=== PATIENT | female | born 1945 | race Two or more races ===

== ENCOUNTER 2024-02-27 07:18 | Emergency (ER) | payer MEDICARE, SELFPAY ==
--- NOTE | ~2024-02-27 | CT_ITS ---
EXAMINATION: CT ABDOMEN AND PELVIS WITHOUT CONTRAST CLINICAL INFORMATION: Urinary hesitancy. Question stone. COMPARISON: None available. TECHNIQUE: Multidetector volumetric imaging was performed from the superior aspect of the liver through the pubic symphysis. Sagittal and coronal reformatted images were obtained on the technologist's workstation. This CT examination was performed using dose optimization techniques as appropriate, variously including the following: *Automated exposure control *Adjustment of mA and/or kV according to patient size (this includes techniques or standardized protocols for targeted exams where dose is matched to indication/reason for exam; i.e. extremities or head) *Use of iterative reconstruction technique DLP: 579 mGy-cm FINDINGS: LUNG BASES: The lung bases appear clear, with no evidence of inflammation or nodules. Mild cardiomegaly. Suspect decreased blood pool density, raising suspicion for anemia. Status post aortic valve replacement. No pericardial effusion. LIVER, GALLBLADDER, AND BILIARY TREE: The liver appears unremarkable in size, shape, and attenuation. No focal hepatic lesion or biliary ductal dilatation is appreciated. Mildly distended gallbladder measuring 4.9 cm in diameter. Less than 5 mm gallstones. No evidence of gallbladder wall thickening or pericholecystic inflammatory change. PANCREAS: Unremarkable SPLEEN: Unremarkable ADRENAL GLANDS: Unremarkable KIDNEYS AND URETERS: 4.2 cm benign right upper pole simple renal cysts for which no further dedicated follow-up imaging as indicated. The kidneys otherwise appear unremarkable in size, shape, and attenuation. No hydronephrosis, hydroureter, or calculi seen. BLADDER: Distended. Otherwise unremarkable. GASTROINTESTINAL TRACT: The small and large bowel appear unremarkable. No diverticulosis. Normal-appearing distal ileum. No evidence of appendicitis. ABDOMINAL WALL: No significant hernia is appreciated. LYMPH NODES: No evidence of adenopathy by size criteria. VASCULAR: Unremarkable PELVIC VISCERA: Status post hysterectomy. OSSEOUS STRUCTURES: Decreased bone mineral density. T7,T10 and L3 benign hemangiomata. Status post median sternotomy. CT/CT abdomen pelvis wo IV con IMPRESSION: Distended urinary bladder. No evidence of urinary tract stone or hydronephrosis. Additional findings as above. Electronically signed by: Sean Monroy MD 02/27/2024 11:44 AM EDT
[2024-02-27 07:22] VITALS: BP 140/61; PULSE 81; RESP 16; TEMP 36.4; O2SAT 97; BMI 29.8
--- NOTE | 2024-02-27 07:54 | ED_ITS ---
HPI - General Adult General Chief complaint: General Medical Stated complaint: ?uti, urinary retention, pelvic pain Time Seen by Provider: 02/27/24 07:43 Source: patient, family ([id number]) and other ([place] healthcare interpreter) Mode of arrival: ambulatory Limitations: no limitations History of Present Illness ED Provider: Marybel ROBLEDO HPI narrative: This is a 70-year-old female with current UTI on Bactrim since Friday presenting to the emergency department with urinary frequency, hesitancy, urgency and dysuria as well as intermittent back pain yesterday that has resolved today. She reports her PCP told her she had a UTI however she never had an exam or urine analysis. Despite taking Bactrim symptoms still seem to be worsening. She reports burning to her periarea when she urinates and feels like there maybe a lump down there. Denies fevers, chills, flank pain, chest pain, shortness of breath, nausea, vomiting, headache, vision changes, dizziness and weakness at this time. Related Data Previous Rx's ?Medication ?Instructions ?Recorded phenazopyridine 100 mg tablet 200 mg (2 x 100 mg) PO TID 2 days 02/27/24 (Pyridium) #6 tabs tamsulosin 0.4 mg capsule (Flomax) 0.4 mg PO DAILY 2 weeks #14 caps 02/27/24 Allergies Allergy/AdvReac Type Severity Reaction Status Date / Time No Known Allergies Allergy Verified 02/27/24 07:27 Review of Systems 2 Review of Systems: Yes all other systems are reviewed and are negative PMFSH Past Medical History Attestation statement: The following information was validated with the patient. Source: old records reviewed and nursing notes reviewed Social History Social History Smoked in Last 30 Days: No Use of substances other than those prescribed or required for medical reasons: No Advance Directives: No Advance Directives Information Provided: Yes Do you have a plan to hurt others: No Plan Physical Exam ED Vital Signs: Vital Signs - 24 hr 02/27/24 07:22 02/27/24 08:50 02/27/24 12:08 Temperature 97.6 F 98 F 97.9 F Pulse Rate 81 66 82 Respiratory Rate 16 16 18 Blood Pressure 140/61 H 151/54 H 125/72 Pulse Oximetry 97 93 93 Oxygen Delivery Method Room Air Room Air Room Air BMI result Body Mass Index 29.8 vss Appearance: Alert.? Oriented X3.? No acute distress.? Head: Normocephalic, atraumatic, no step-offs or deformities Eyes: Pupils equal, round and reactive to light.? ENT: Pharynx normal.? Neck: Normal inspection.? Neck supple.? CVS: Normal heart rate and rhythm.? Pulses normal.? Respiratory: No respiratory distress.? Breath sounds normal.? Abdomen: Soft and mild abdominal discomfort in the suprapubic region..? Skin: Skin warm and dry.? Normal skin color.? Normal skin turgor.? Extremities: No lower extremity edema.? No calf ttp. 5/5 strength to bilateral upper and lower extremities Sensitive exam: Normal genital region, externally, no lumps lesions or masses noted. Course Reevaluation(s) Reevaluation #1: CBC with no acute findings needing intervention. Chemistry unremarkable. Mildly elevated BUN and creatinine will give IV fluids at this time. UA without infection Time: 11:59 Reevaluation #2: CT with distended urinary bladder no evidence of urinary tract stone or hydronephrosis. Discuss this with urology who reports based off the postvoid residual no indication for indwelling Soliman catheter she should follow up outpatient with Urology recommends Flomax. I will also add Pyridium. Educated patient on diagnosis and treatment plan, answered all question, patient verbalizes understanding. At this time patient will be discharged home, advised to return with new or worsening symptoms. Educated on worrisome signs and symptoms and when to return. At this time I feel comfortable discharge home. Time: 13:08 Medications Administered Discontinued Medications Generic Name Dose Route Start Last Admin Trade Name Freq PRN Reason Stop Dose Admin Sodium Chloride 1,000 mls @ 999 mls/hr 02/27/24 12:00 02/27/24 12:04 Ns IV 02/27/24 13:00 999 mls/hr .Q1H1M JUANITA Administration Morphine Sulfate 4 mg 02/27/24 11:59 02/27/24 12:03 Morphine Sulfate 4 Mg/Ml Cartridge IVPUSH 02/27/24 12:00 4 mg ONCE ONE Administration Protocol Medical Decision Making Medical Decision Making [facility] Narrative: 70-year-old female presents with lower abdominal pain and difficulty urinating since Friday currently on Bactrim for UTI. No fevers or chills. Physical exam suprapubic discomfort. Otherwise patient appears well, hemodynamically stable History and physical exam concerning for UTI versus cystitis. Less likely kidney stone, pyelonephritis, metabolic derangements no signs of systemic illness. To note patient does not have any saddle anesthesias, weakness, urinary or bowel incontinence, no bowel retention. I do not suspect acute cord compression, cauda equina. Plan labs, imaging, bladder scan Differential Diagnosis Differential Diagnoses: The differential diagnosis associated with the presentation includes (History and physical exam concerning for UTI versus cystitis. Less likely kidney stone, pyelonephritis, metabolic derangements no signs of systemic illness.) To note patient does not have any saddle anesthesias, weakness, urinary or bowel incontinence, no bowel retention. I do not suspect acute cord compression, cauda equina. Admission/Observation Consideration of admission/observation: Escalation of care including admission/observation considered (Likely if not responding to PO atbx ) Consult Healthcare Provider Management of the patient was discussed with: Fish Farmer (Cortes ) Lab Data MDM Lab Attestation statement: I reviewed the patient's lab results. 02/27/24 08:16 02/27/24 08:16 Labs: Lab Results 02/27/24 02/27/24 Range/Units 08:16 08:32 WBC 6.4 (4.8-10.8) X10*3/uL RBC 3.67 L (4.20-5.50) X10*6/uL Hgb 10.6 L (12.0-16.0) g/dl Hct 32.3 L (37.0-47.0) % MCV 88.0 (80.0-98.0) fL MCH 28.9 (27.0-33.0) pg MCHC 32.8 (31.0-35.0) g/dl RDW 14.2 (11.0-16.0) % Plt Count 199 (160-400) X10*3/uL MPV 9.5 (9.4-12.3) fL Immature Gran % (Auto) 0.3 (0.0-0.4) % Neut % (Auto) 70.2 (45-73) % Lymph % (Auto) 16.2 L (20-40) % Barron % (Auto) 12.3 H (2-11) % Eos % (Auto) 0.8 (0-4) % Baso % (Auto) 0.2 (0-2) % Lymph # (Auto) 1.0 L (1.2-4.9) X10*3/uL Barron # (Auto) 0.8 (0.1-1.2) X10*3/uL Eos # (Auto) 0.1 (0.0-0.4) X10*3/uL Baso # (Auto) 0.0 (0.0-0.2) X10*3/uL Abs Immat Gran (auto) 0.02 (0.00-0.03) X10*3/uL Absolute Neuts (auto) 4.5 (2.0-8.3) x10*3/uL Absolute Nucleated RBC 0.000 (0.0-0.012) X10*3/uL Nucleated RBC % (auto) 0.0 (0.0-0.2) /100WBC Sodium 134 L (135-145) mmol/L Potassium 5.3 H (3.3-5.1) mmol/L Chloride 101 (96-108) mmol/L Carbon Dioxide 26 (22-29) mmol/L Anion Gap 12 (12-20) BUN 17 H (9-16) mg/dL Creatinine 1.26 (0.5-1.4) mg/dL Estim Creat Clear Calc 34.6 Estimated GFR 41 Random Glucose 154 H (60-115) mg/dL Calcium 9.4 (8.4-10.2) mg/dL Magnesium 1.9 (1.6-2.6) mg/dL Total Bilirubin 0.2 (0.0-1.0) mg/dL AST 19 (5-31) U/L ALT 17 (0-31) U/L Alkaline Phosphatase 97 (39-117) U/L Total Protein 6.6 (6.5-8.0) g/dL Albumin 4.0 (3.5-5.0) g/dL Lipase 27 (8-78) U/L Urine Color Yellow Urine Appearance Clear Urine pH 6.5 (5.0-9.0) Ur Specific [place] 1.010 (1.005-1.025) Urine Protein Negative (Neg-Trace) mg/dL Urine Glucose (UA) Negative (Negative) mg/dL Urine Ketones Negative (Negative) mg/dL Urine Blood Negative (Negative) Urine Nitrite Negative (Negative) Ur Leukocyte Esterase Negative (Negative) Independent Interpretation I performed an independent interpretation of an: CT Scan (CT/CT abdomen pelvis wo IV con IMPRESSION: Distended urinary bladder. No evidence of urinary tract stone or hydronephrosis. Additional findings as above. ) Radiology Impression Discussion of test interpretation with radiology: I have reviewed the radiologist's reading. Critical Care Time Critical Care Time Critical Care Time: Yes Total Critical Care Time: 35 Attestation: I attest to this time spent taking care of the patient, obtaining history, physical, reviewing labs, imaging, treatment of patients condition +/- specialist/hospitalist consult Discharge Plan Discharge Clinical Impression: Cystitis, Urinary retention Patient Disposition: Home, Self-Care Instructions: Acute Urinary Retention in Women (ED), Interstitial Cystitis (ED) Additional Instructions: Take your medications as prescribed. If you were prescribed antibiotics today, it is important that you take your medication to their entirety, do not skip any doses, do not finish them early. Follow-up with your primary care provider this week. Return to the emergency department with new or worsening symptoms. Such as fevers, chills, chest pain, shortness of breath, nausea, vomiting, dizziness, headache, vision changes, lethargy In case of emergency call 911 Prescriptions: New tamsulosin [Flomax] 0.4 mg capsule 0.4 mg PO DAILY 14 Days Qty: 14 0RF phenazopyridine [Pyridium] 100 mg tablet 200 mg PO TID 2 Days Qty: 6 0RF Referrals: [facility] [Provider Group] - 3 days Paco Schuler MD [Primary Care Provider] - 2 days Stand Alone Forms: Work/School Release Print Language: Kyrgyz
[2024-02-27 08:19] LABS: MANUAL DIFF FLAG NO
[2024-02-27 08:21] LABS: Basophils Percent Auto 0.2 % (0-2); Eosinophils Absolute Auto 0.1 X10*3/uL (0.0-0.4); Eosinophils Percent Auto 0.8 % (0-4); Hematocrit 32.3 % (37.0-47.0); Hemoglobin 10.6 g/dl (12.0-16.0); Imm Gran Abs Auto 0.02 X10*3/uL (0.00-0.03); Imm Gran Pct Auto 0.3 % (0.0-0.4); Lymphocytes Percent Auto 16.2 % (20-40); Mean Corpuscular HGB Conc 32.8 g/dl (31.0-35.0); Mean Corpuscular Hemoglobin 28.9 pg (27.0-33.0); Mean Platelet Volume 9.5 fL (9.4-12.3); Monocytes Absolute Auto 0.8 X10*3/uL (0.1-1.2); Monocytes Percent Auto 12.3 % (2-11); Neutrophils Absolute Auto 4.5 x10*3/uL (2.0-8.3); Neutrophils Percent Auto 70.2 % (45-73); Platelet Count 199 X10*3/uL (160-400); Red Blood Count 3.67 X10*6/uL (4.20-5.50); Red Cell Distribution Width 14.2 % (11.0-16.0); White Blood Count 6.4 X10*3/uL (4.8-10.8)
[2024-02-27 08:36] LABS: Alanine Aminotransferase 17 U/L (0-31); Alkaline Phosphatase 97 U/L (39-117); Anion Gap 12 (12-20); Aspartate Amino Transferase 19 U/L (5-31); Bilirubin Total 0.2 mg/dL (0.0-1.0); Blood Urea Nitrogen 17 mg/dL (9-16); Calcium 9.4 mg/dL (8.4-10.2); Carbon Dioxide 26 mmol/L (22-29); Chloride 101 mmol/L (96-108); Creatinine Clr Calc Pharmacy 34.6; Estimated Glomerular Filt Rate 41; Glucose Random 154 mg/dL (60-115); Lipase 27 U/L (8-78); Magnesium 1.9 mg/dL (1.6-2.6); Potassium 5.3 mmol/L (3.3-5.1); Sodium 134 mmol/L (135-145); Total Protein 6.6 g/dL (6.5-8.0)
[2024-02-27 08:41] LABS: Appearance Urine Clear; Color Urine Yellow; Glucose Urine UA Negative (Negative); Leukocyte Esterase Urine Negative (Negative); Nitrite Urine Negative (Negative); PH 6.5 (5.0-9.0); Urine Blood Negative (Negative); Urine Ketones Negative (Negative); Urine Protein Negative (Neg-Trace)
[2024-02-27 08:50] VITALS: BP 151/54; PULSE 66; RESP 16; TEMP 36.6; O2SAT 93
[2024-02-27] MEDS: Morphine Sulfate 4 MG/ML CARTRIDGE IVPUSH (12:03)
[2024-02-27] MEDS: 0.9 % Sodium Chloride 1,000 ML 999 ML IV (12:04)
--- NOTE | 2024-02-27 12:05 | PC.NURSE ---
pt verbalizing increase in lower abd pain - requesting medication. provider notified/aware. medication administered per provider order. effectiveness pending.
[2024-02-27 12:08] VITALS: BP 125/72; PULSE 82; RESP 18; TEMP 36.6; O2SAT 93
[2024-02-27] MEDS: Tamsulosin HCL 0.4 MG CAPSULE PO (13:44)
[2024-02-27 13:48] VITALS: BP 125/72; PULSE 82; RESP 18; TEMP 36.6; O2SAT 93
== END 2024-02-27 13:51 | disposition home or self-care (01) ==
PROVIDERS: Physician Assistant; Emergency Provider Student in an Organized Health Care Education/Training Program; PCP Internal Medicine
DX: N30.90 Cystitis, unspecified without hematuria (principal); R33.9 Retention of urine, unspecified; R10.2 Pelvic and perineal pain
CPT/HCPCS: 36415; 74176; 80053; 81003; 83690; 83735; 85025; 96361; 96374; 99284; 99285; J2270

== ENCOUNTER 2024-06-12 02:32 | Inpatient (IN) | payer MEDICARE, SELFPAY ==
[2024-06-12] VITALS (19 sets, daily range): BP systolic 119–165; BP diastolic 54–95; PULSE 82–116; RESP 18–33; TEMP 36.6–37.9; O2SAT 87–97; BMI 32.9
--- NOTE | ~2024-06-12 | XR_ITS ---
EXAMINATION: XR CHEST CLINICAL INFORMATION: follow up hypoxia after diuresis COMPARISON: 06/12/2024. TECHNIQUE: AP portable view of the chest was obtained. FINDINGS: Cardiac silhouette is prominent but may be magnified by AP technique. Aortic valve replacement. Sternotomy. Aorta is calcified but normal in contour. Normal hilar silhouettes. Previously seen hazy interstitial markings throughout both lungs have resolved. Findings likely represent resolved interstitial edema or atypical pneumonia. There is only trace atelectasis in the left base. No pneumothorax or effusion. Reverse left shoulder arthroplasty in place without complication. Degenerative changes and scoliosis of the spine. XR/XR chest 1V IMPRESSION: 1. Resolution of previously seen hazy interstitial opacities, likely representing resolved interstitial edema versus atypical infection. Currently, no active lung disease. Electronically signed by: Gaston Geller MD 06/15/2024 10:04 AM ROSA ELENA
--- NOTE | ~2024-06-12 | XR_ITS ---
CLINICAL HISTORY: cough 1 view chest x-ray. Comparison: None Findings: There is mild interstitial prominence throughout the bilateral lungs. No pneumothorax or significant pleural effusion identified. Heart size is borderline enlarged. Cardiac valve prosthesis visualized. Median sternotomy wires are in place. Partial visualization of a left shoulder prosthesis. Impression: 1. Borderline cardiomegaly with mild interstitial prominence throughout the bilateral lungs, which may be related to mild pulmonary interstitial edema or a mild atypical/viral infection. This document has been electronically signed by: Matthew Horne MD on 06/12/2024 04:14:39
--- NOTE | 2024-06-12 02:43 | ECG_ITS ---
Test Reason : SOB Blood Pressure : */* mmHG Vent. Rate : 107 BPM Atrial Rate : 107 BPM P-R Int : 208 ms QRS Dur : 140 ms QT Int : 378 ms P-R-T Axes : * 41 120 degrees QTcB Int : 504 ms Sinus tachycardia Left bundle branch block Abnormal ECG No previous ECGs available Referred By: Generic ED Physician Electronically Signed By: Bacilio Ahumada
[2024-06-12 03:21] LABS: Basophils Percent Auto 0.3 % (0-2); Eosinophils Absolute Auto 0.1 X10*3/uL (0.0-0.4); Hematocrit 26.6 % (37.0-47.0); Hemoglobin 8.4 g/dl (12.0-16.0); Imm Gran Abs Auto 0.04 X10*3/uL (0.00-0.03); Imm Gran Pct Auto 0.3 % (0.0-0.4); Lymphocytes Absolute Auto 0.8 X10*3/uL (1.2-4.9); Lymphocytes Percent Auto 5.9 % (20-40); MANUAL DIFF FLAG NO; Mean Corpuscular HGB Conc 31.6 g/dl (31.0-35.0); Mean Corpuscular Hemoglobin 26.8 pg (27.0-33.0); Mean Corpuscular Volume 84.7 fL (80.0-98.0); Mean Platelet Volume 9.9 fL (9.4-12.3); Monocytes Absolute Auto 0.9 X10*3/uL (0.1-1.2); Monocytes Percent Auto 6.8 % (2-11); Neutrophils Absolute Auto 10.8 x10*3/uL (2.0-8.3); Neutrophils Percent Auto 85.7 % (45-73); Platelet Count 258 X10*3/uL (160-400); Red Blood Count 3.14 X10*6/uL (4.20-5.50); White Blood Count 12.6 X10*3/uL (4.8-10.8)
--- NOTE | 2024-06-12 03:32 | ED.SOB ---
HPI - SOB/Dyspnea General Chief Complaint: Dyspnea Stated Complaint: sob/not feeling good Time Seen by Provider: 06/12/24 02:50 Source: patient and family Mode of arrival: ambulatory Limitations: no limitations History of Present Illness ED Provider: Dr. Fabiana Samayoa HPI Narrative: Patient comes to the emergency room complaining of shortness of breath and feeling tired for 2 weeks. Patient's family states that patient was treated empirically with doxycycline about a week ago. Patient reports no improvement. Patient states that actually her cough and shortness of breath has gotten much worse. At home, she lives with her son and [id number] who recently tested positive for COVID-19. Two days ago, patient had a negative COVID test at home. Related Data Previous Rx's ?Medication ?Instructions ?Recorded phenazopyridine 100 mg tablet 200 mg (2 x 100 mg) PO TID 2 days 02/27/24 (Pyridium) #6 tabs tamsulosin 0.4 mg capsule (Flomax) 0.4 mg PO DAILY 2 weeks #14 caps 02/27/24 Allergies Allergy/AdvReac Type Severity Reaction Status Date / Time No Known Allergies Allergy Verified 06/12/24 02:41 Review of Systems Review of Systems: Constitutional : No Weight loss, No Fever, No Chills, No Night Sweats, No Fatigue, No Malaise ENT/Mouth : No Hearing loss, No Ear Pain, No Nasal Congestion, No Sinus Pain, No Hoarseness, No sore throat, No Rhinorrhea, No Swallowing Difficulty Eyes: No Eye Pain, No Swelling, No Redness, No Foreign Body, No Discharge, No Vision Changes Cardiovascular : No Chest Pain, complaining of shortness of breath at rest and much worse with exertion, no orthopnea Respiratory : Complaining of dry cough , wheezing sensation, continue shortness of breath worse with exertion Gastrointestinal : No Nausea, No Vomiting, No Diarrhea, No Constipation, No abdominal Pain, No Hematochezia, No Melena Genitourinary : no irregular bleeding, No Dysuria, No Urinary Frequency, No Hematuria, No Urinary Incontinence, No Urgency, No Flank Pain, No Urinary Flow Changes, No Hesitancy Musculoskeletal : No joint pain, No Myalgias, No Joint Swelling Skin : No Skin Lesions, No rash Neuro : No Weakness, No Numbness, No Paresthesias, No Loss of Consciousness, No Dizziness, No Headache Psych : No Anxiety/Panic, No Depression, No SI/HI/AH/VH, No Social Issues, Heme/Lymph: No Bruising, No Bleeding,No Lymphadenopathy Endocrine : No Polyuria, No Polydipsia, No Temperature Intolerance [facility] Past Medical History Medical History (Updated 06/12/24 @ 04:44 by Fabiana Samayoa MD) Anticoagulated on Coumadin Hypertension Surgical History (Updated 06/12/24 @ 03:34 by Fabiana Samayoa MD) Heart valve replaced Social History Social History Alcohol intake: never Smoked in Last 30 Days: No Use of substances other than those prescribed or required for medical reasons: No Advance Directives: No Advance Directives Information Provided: Yes Do you have a plan to hurt others: No Plan Physical Exam Vital Signs: Vital Signs: Last Vital Signs Temp 99.2 F 06/12/24 06:10 Pulse 93 06/12/24 06:10 Resp 26 H 06/12/24 06:10 BP 151/60 H 06/12/24 06:10 Pulse Ox 96 06/12/24 03:22 O2 Del Method Nasal Cannula 06/12/24 03:22 O2 Flow Rate 4 06/12/24 03:22 BMI result Body Mass Index 32.9 Const: Other: Appearance: Alert. Oriented X3. No acute distress. Eyes: Pupils equal, round and reactive to light. ENT: Pharynx normal. Neck: Normal inspection. Neck supple. No lymph nodes noted. No crepitus CVS: Normal heart rate and rhythm. Pulses normal. Normal S1 and S2 Respiratory: Patient feels short of breath, tachypneic, mild wheezing Abdomen: Soft and nontender. No rigidity. No distention. Skin: Skin warm and dry. Normal skin color. Normal skin turgor. Extremities: No lower extremity edema. No Lacerations. No Rash Neuro: Oriented X 3. No motor deficit. No sensory deficit. Moving all extremities. No slurred speech. CN 2 through 12 grossly intact Psych: calm, cooperative, normal affect Course Course Course Narrative: At rest, patient's oxygen saturation is about 91%. Patient was ambulated, oxygen saturation stayed in the 90s. However, patient could not continue for a long distance due to severe shortness of breath and tachypnea. Patient was helped back to her bed, oxygen saturation 86% on room air. All of patient's labs and imaging pending. Medications Administered Discontinued Medications Generic Name Dose Route Start Last Admin Trade Name Oumou PRN Reason Stop Dose Admin Dexamethasone Sodium Phosphate 6 mg 06/12/24 04:34 06/12/24 05:49 Dexamethasone Sod Phosphate 4 Mg/Ml Vial IVPUSH 06/12/24 04:35 6 mg ONCE ONE Administration Medical Decision Making Medical Decision Making [facility] Narrative: Interpretation of EKG: Sinus tachycardia, heart rate 107, T-wave inversions in V5 V6, no reciprocal changes, QTC 504. We do not have any previous EKGs for comparison. -T-wave changes likely secondary to anemia, demand ischemia, ACS no suspected -Patient is not having any chest pain at all. Patient's INR is supratherapeutic -troponin BNP pending My interpretation of labs: Patient's white blood cell count 12.8. Hemoglobin 8.4 patient's occult blood is positive. Patient has supratherapeutic INR of 4.8. Normal chemistry, patient also tested positive for COVID-19. Chest x-ray shows mild interstitial prominence throughout bilateral lungs, likely atypical viral infection. No known infiltrates seen. I discussed with the patient her results, discussed with the patient that given that she has been fatigued, shortness of breath, could be a combination of COVID but also a low hemoglobin level. Patient states that she has had blood transfusions in the past with to GI bleeds. Patient agreeable to proceed with the transfusion. Risks and benefits were reviewed with the patient and her son, both agreeable to proceed with the blood. Consent signed. Patient receiving Decadron, blood, patient on supplemental O2. BNP and troponin are slightly elevated, patient may have new onset CHF, no previous labs for comparison. I discussed the patient with Dr. Arana from the Medicine team, patient being admitted Differential Diagnosis Differential Diagnoses: The differential diagnosis associated with the presentation includes (COVID, pneumonia, CHF, anemia, GI bleed) Admission/Observation Consideration of admission/observation: Escalation of care including admission/observation considered Consult Healthcare Provider Management of the patient was discussed with: Hospitalist Lab Data [facility] Lab Attestation statement: I reviewed the patient's lab results. 06/12/24 03:15 06/12/24 03:15 Labs: Lab Results 06/12/24 06/12/24 06/12/24 Range/Units 03:15 03:22 03:37 WBC 12.6 H (4.8-10.8) X10*3/uL RBC 3.14 L (4.20-5.50) X10*6/uL Hgb 8.4 L D (12.0-16.0) g/dl Hct 26.6 L (37.0-47.0) % MCV 84.7 (80.0-98.0) fL MCH 26.8 L (27.0-33.0) pg MCHC 31.6 (31.0-35.0) g/dl RDW 15.0 (11.0-16.0) % Plt Count 258 D (160-400) X10*3/uL MPV 9.9 (9.4-12.3) fL Immature Gran % (Auto) 0.3 (0.0-0.4) % Neut % (Auto) 85.7 H (45-73) % Lymph % (Auto) 5.9 L (20-40) % [place] % (Auto) 6.8 (2-11) % Eos % (Auto) 1.0 (0-4) % Baso % (Auto) 0.3 (0-2) % Lymph # (Auto) 0.8 L (1.2-4.9) X10*3/uL [place] # (Auto) 0.9 (0.1-1.2) X10*3/uL Eos # (Auto) 0.1 (0.0-0.4) X10*3/uL Baso # (Auto) 0.0 (0.0-0.2) X10*3/uL Abs Immat Gran (auto) 0.04 H (0.00-0.03) X10*3/uL Absolute Neuts (auto) 10.8 H (2.0-8.3) x10*3/uL Absolute Nucleated RBC 0.000 (0.0-0.012) X10*3/uL Nucleated RBC % (auto) 0.0 (0.0-0.2) /100WBC PT 56.1 H (10.9-12.4) SEC INR 4.8 H (0.9-1.1) APTT 50.8 H (26.0-36.8) SEC Hold Blue Top SEE NOTE Sodium 140 (135-145) mmol/L Potassium 4.1 D (3.3-5.1) mmol/L Chloride 110 H (96-108) mmol/L Carbon Dioxide 20 L (22-29) mmol/L Anion Gap 14 (12-20) BUN 19 H (9-16) mg/dL Creatinine 0.85 (0.5-1.4) mg/dL Estim Creat Clear Calc 49.8 Estimated GFR > 60 Random Glucose 159 H (60-115) mg/dL Lactic Acid (0.5-2.0) mmol/L Calcium 8.8 D (8.4-10.2) mg/dL Total Bilirubin 0.3 (0.0-1.0) mg/dL AST 29 (5-31) U/L ALT 15 (0-31) U/L Alkaline Phosphatase 109 (39-117) U/L Troponin I High Sens 17.7 H (<3.5-17.0) ng/L B-Natriuretic Peptide 455 H (<100) pg/mL Total Protein 6.7 (6.5-8.0) g/dL Albumin 3.8 (3.5-5.0) g/dL Urine Color Yellow Urine Appearance Clear Urine pH 5.0 (5.0-9.0) Ur Specific [place] >= 1.030 H (1.005-1.025) Urine Protein 30 (1+) H (Neg-Trace) mg/dL Urine Glucose (UA) Negative (Negative) mg/dL Urine Ketones Trace (Negative) mg/dL Urine Blood Negative (Negative) Urine Nitrite Negative (Negative) Ur Leukocyte Esterase Negative (Negative) Urine RBC 0-2 (0-2) /HPF Urine WBC 0-5 (0-5) /HPF Ur Squamous Epith Cells 0-2 (0-2) /HPF Urine Bacteria None Seen (None Seen) Hyaline Casts 0-2 (0-2) /LPF Stool Occult Blood (NEGATIVE) Influenza Type A (PCR) NEGATIVE (Negative) Influenza Type B (PCR) NEGATIVE (Negative) RSV RNA Qual (PCR) NEGATIVE (Negative) SARS-CoV-2 RNA (RT-PCR) POSITIVE A (Negative) Blood Type Antibody Screen Crossmatch 06/12/24 06/12/24 06/12/24 Range/Units 03:38 03:48 04:54 WBC (4.8-10.8) X10*3/uL RBC (4.20-5.50) X10*6/uL Hgb (12.0-16.0) g/dl Hct (37.0-47.0) % MCV (80.0-98.0) fL MCH (27.0-33.0) pg MCHC (31.0-35.0) g/dl RDW (11.0-16.0) % Plt Count (160-400) X10*3/uL MPV (9.4-12.3) fL Immature Gran % (Auto) (0.0-0.4) % Neut % (Auto) (45-73) % Lymph % (Auto) (20-40) % [place] % (Auto) (2-11) % Eos % (Auto) (0-4) % Baso % (Auto) (0-2) % Lymph # (Auto) (1.2-4.9) X10*3/uL [place] # (Auto) (0.1-1.2) X10*3/uL Eos # (Auto) (0.0-0.4) X10*3/uL Baso # (Auto) (0.0-0.2) X10*3/uL Abs Immat Gran (auto) (0.00-0.03) X10*3/uL Absolute Neuts (auto) (2.0-8.3) x10*3/uL Absolute Nucleated RBC (0.0-0.012) X10*3/uL Nucleated RBC % (auto) (0.0-0.2) /100WBC PT (10.9-12.4) SEC INR (0.9-1.1) APTT (26.0-36.8) SEC Hold Blue Top Sodium (135-145) mmol/L Potassium (3.3-5.1) mmol/L Chloride (96-108) mmol/L Carbon Dioxide (22-29) mmol/L Anion Gap (12-20) BUN (9-16) mg/dL Creatinine (0.5-1.4) mg/dL Estim Creat Clear Calc Estimated GFR Random Glucose (60-115) mg/dL Lactic Acid 1.7 (0.5-2.0) mmol/L Calcium (8.4-10.2) mg/dL Total Bilirubin (0.0-1.0) mg/dL AST (5-31) U/L ALT (0-31) U/L Alkaline Phosphatase (39-117) U/L Troponin I High Sens (<3.5-17.0) ng/L B-Natriuretic Peptide (<100) pg/mL Total Protein (6.5-8.0) g/dL Albumin (3.5-5.0) g/dL Urine Color Urine Appearance Urine pH (5.0-9.0) Ur Specific [place] (1.005-1.025) Urine Protein (Neg-Trace) mg/dL Urine Glucose (UA) (Negative) mg/dL Urine Ketones (Negative) mg/dL Urine Blood (Negative) Urine Nitrite (Negative) Ur Leukocyte Esterase (Negative) Urine RBC (0-2) /HPF Urine WBC (0-5) /HPF Ur Squamous Epith Cells (0-2) /HPF Urine Bacteria (None Seen) Hyaline Casts (0-2) /LPF Stool Occult Blood POSITIVE (NEGATIVE) Influenza Type A (PCR) (Negative) Influenza Type B (PCR) (Negative) RSV RNA Qual (PCR) (Negative) SARS-CoV-2 RNA (RT-PCR) (Negative) Blood Type O Positive Antibody Screen NEGATIVE Crossmatch See Detail Independent Interpretation I performed an independent interpretation of an: Plain X-Ray Radiology Impression Discussion of test interpretation with radiology: I have reviewed the radiologist's reading. Radiologist Impression: There is mild interstitial prominence throughout the bilateral lungs. No pneumothorax or significant pleural effusion identified. Heart size is borderline enlarged. Cardiac valve prosthesis visualized. Median sternotomy wires are in place. Partial visualization of a left shoulder prosthesis. Impression: 1. Borderline cardiomegaly with mild interstitial prominence throughout the bilateral lungs, which may be related to mild pulmonary interstitial edema or a mild atypical/viral infection. Critical Care Time Critical Care Time Critical Care Time: Yes Total Critical Care Time: 75 Attestation: I have personally provided critical care time. Time includes review of lab data, radiology results, discussion with consultants, and monitoring for potential decompensation. Intervention performed as documented. Discharge Plan Discharge Clinical Impression: COVID-19, Supratherapeutic INR, Occult GI bleeding Patient Disposition: Admitted As Inpatient Print Language: Sinhala
[2024-06-12 03:45] LABS: Alanine Aminotransferase 15 U/L (0-31); Albumin Level 3.8 g/dL (3.5-5.0); Alkaline Phosphatase 109 U/L (39-117); Anion Gap 14 (12-20); Aspartate Amino Transferase 29 U/L (5-31); Bilirubin Total 0.3 mg/dL (0.0-1.0); Blood Urea Nitrogen 19 mg/dL (9-16); Calcium 8.8 mg/dL (8.4-10.2); Carbon Dioxide 20 mmol/L (22-29); Chloride 110 mmol/L (96-108); Creatinine Clr Calc Pharmacy 49.8; Estimated Glomerular Filt Rate > 60; Glucose Random 159 mg/dL (60-115); Potassium 4.1 mmol/L (3.3-5.1); Sodium 140 mmol/L (135-145); Total Protein 6.7 g/dL (6.5-8.0)
[2024-06-12 03:53] LABS: OBS Int Ctl Valid YES; OBS1 POSITIVE (NEGATIVE)
[2024-06-12 03:55] LABS: Appearance Urine Clear; Color Urine Yellow; Glucose Urine UA Negative (Negative); Leukocyte Esterase Urine Negative (Negative); Nitrite Urine Negative (Negative); Specific Gravity - Urine >= 1.030 (1.005-1.025); UMIC TRIGGER UACC YES; Urine Blood Negative (Negative); Urine Ketones Trace mg/dL (Negative); Urine Protein 30 (1+) mg/dL (Neg-Trace)
[2024-06-12 03:56] LABS: INTERNATIONAL NORM RATIO 4.8 (0.9-1.1); Prothrombin Time 56.1 SEC (10.9-12.4)
[2024-06-12 03:58] LABS: Partial Thromboplastin Time 50.8 SEC (26.0-36.8)
[2024-06-12 03:59] LABS: Bacteria Urine None Seen (None Seen); Hyaline Casts Urine 0-2 /LPF (0-2); RBC Urine 0-2 /HPF (0-2); Squamous Epithelial Cell Urine 0-2 /HPF (0-2); WBC Urine 0-5 /HPF (0-5)
[2024-06-12 04:04] LABS: Influenza A PCR NEGATIVE (Negative); Influenza B PCR NEGATIVE (Negative); Resp Syncy Virus RNA Qual PCR NEGATIVE (Negative); SARS COV2 PCR INHOUSE POSITIVE (Negative)
--- NOTE | 2024-06-12 04:05 | PC.NURSE ---
Addendum entered by Melita Roque 06/12/24 06:07: Blood Transfusion started, Pt denies any adverse reaction. Original Note: Pt A&Ox3, reports SOB x 2 weeks worsening in the past couple of days worsened tonight. Pt WOB, RR 24, SpO2 90% on RA, lung sounds with crackles, Pt speaking in words, family member at bedside. Pt destat to 87% with ambulation trial. IV line placed, lab work collected and sent to lab.
[2024-06-12 04:07] LABS: Lactic Acid 1.7 mmol/L (0.5-2.0)
[2024-06-12 04:49] LABS: Troponin-I High Sensitivity 17.7 ng/L (<3.5-17.0)
[2024-06-12 04:58] LABS: B Type Natriuretic Peptide 455 pg/mL (<100)
[2024-06-12] MEDS: dexAMETHasone sod phosphate 4 MG/ML VIAL 6 MG IVPUSH (05:49)
[2024-06-12 08:06] LABS: Glucose, Whole Blood 150 mg/dL (60-115)
--- NOTE | 2024-06-12 08:09 | P.HPHOSP_ITS ---
History of Present Illness Date of Service: 06/12/24 Chief Complaint: sob 78F PMH mechanical AVR on coumadin, DM, htn, breast cancer, osteoarthritis, presented with shortness of breath. Patient states that symptoms began about 1 week prior to presentation. Worse on exertion, positive orthopnea. Denies any increased swelling. Denies fever or chills. Does have sick contact with COVID. Denies chest pain, nausea vomiting, diarrhea. In ED found to be hypoxic, COVID positive, chest x-ray with mild interstitial prominence, elevated BNP, hemoglobin 8.4, INR 4.8 with positive stool occult blood. Patient does note some dark stools recently. Review of Systems 2 Review of Systems: Yes all other systems are reviewed and are negative [facility] Medical History Breast cancer Diabetes Anticoagulated on Coumadin Hypertension Surgical History Heart valve replaced Social History Alcohol intake: never Smoked in Last 30 Days: No Use of substances other than those prescribed or required for medical reasons: No Advance Directives: No Advance Directives Information Provided: Yes Do you have a plan to hurt others: No Plan Meds Allergies Allergy/AdvReac Type Severity Reaction Status Date / Time No Known Allergies Allergy Verified 06/12/24 02:41 Active Medications: Current Medications Furosemide (Furosemide 40 Mg/4 Ml Vial) 40 mg IVPUSH BID@0900,1800 JUANITA; Protocol Home Medications ?Medication ?Instructions ?Recorded ?Confirmed ?Last Taken ?Type amlodipine 10 mg tablet 10 mg PO DAILY@0900 06/12/24 06/12/24 Unknown History atorvastatin 40 mg tablet 40 mg PO DAILY@0900 06/12/24 06/12/24 Unknown History benzonatate 200 mg capsule 200 mg PO TID 06/12/24 06/12/24 Unknown History fluticasone propionate 50 1 spray intranasal BID PRN Allergy 06/12/24 06/12/24 Unknown History mcg/actuation nasal Symptoms spray,suspension insulin glargine 100 unit/mL (3 36 unit subcut DAILY@0900 06/12/24 06/12/24 Unknown History mL) subcutaneous pen (Lantus Solostar U-100 Insulin) metformin 850 mg tablet 850 mg PO DAILY@2100 06/12/24 06/12/24 Unknown History metoprolol tartrate 50 mg tablet 50 mg PO BID 06/12/24 06/12/24 Unknown History pioglitazone 30 mg tablet 30 mg PO DAILY@0900 06/12/24 06/12/24 Unknown History valsartan 160 mg tablet 160 mg PO DAILY@0900 06/12/24 06/12/24 Unknown History warfarin 5 mg tablet 7.5 mg PO DAILY@1700 06/12/24 06/11/24 History Physical Exam 2 Vital Signs and Narrative: Vital Signs: Last Vital Signs Temp 98.4 F 06/12/24 08:04 Pulse 101 H 06/12/24 08:04 Resp 33 H 06/12/24 08:04 BP 156/59 H 06/12/24 08:04 Pulse Ox 93 06/12/24 08:04 O2 Del Method Nasal Cannula 06/12/24 08:04 O2 Flow Rate 4 06/12/24 08:04 BMI result Body Mass Index 32.9 General: AO X 3, no acute distress Resp: Crackles and wheezing bilateral, no accessory muscles used CVS: S1,S2,RRR, trace edema GI: soft, non tender, non distended Neuro: motor grossly intact, alert Psych: appropriate affect, appropriate insight Results Labs 06/12/24 03:15 06/12/24 03:15 Labs: Laboratory Results - last 24 hr 06/12/24 06/12/24 06/12/24 03:15 03:22 03:37 MCV 84.7 MCH 26.8 L MCHC 31.6 RDW 15.0 Plt Count 258 D MPV 9.9 Immature Gran % (Auto) 0.3 Neut % (Auto) 85.7 H Lymph % (Auto) 5.9 L [place] % (Auto) 6.8 Eos % (Auto) 1.0 Baso % (Auto) 0.3 Lymph # (Auto) 0.8 L [place] # (Auto) 0.9 Eos # (Auto) 0.1 Baso # (Auto) 0.0 Abs Immat Gran (auto) 0.04 H Absolute Neuts (auto) 10.8 H Absolute Nucleated RBC 0.000 Nucleated RBC % (auto) 0.0 PT 56.1 H INR 4.8 H APTT 50.8 H Hold Blue Top SEE NOTE Anion Gap 14 Estim Creat Clear Calc 49.8 Estimated GFR > 60 POC Glucose Random Glucose 159 H Lactic Acid Calcium 8.8 D Total Bilirubin 0.3 AST 29 ALT 15 Alkaline Phosphatase 109 Troponin I High Sens 17.7 H B-Natriuretic Peptide 455 H Total Protein 6.7 Albumin 3.8 Urine Color Yellow Urine Appearance Clear Urine pH 5.0 Ur Specific [place] >= 1.030 H Urine Protein 30 (1+) H Urine Glucose (UA) Negative Urine Ketones Trace Urine Blood Negative Urine Nitrite Negative Ur Leukocyte Esterase Negative Urine RBC 0-2 Urine WBC 0-5 Ur Squamous Epith Cells 0-2 Urine Bacteria None Seen Hyaline Casts 0-2 Stool Occult Blood Influenza Type A (PCR) NEGATIVE Influenza Type B (PCR) NEGATIVE RSV RNA Qual (PCR) NEGATIVE SARS-CoV-2 RNA (RT-PCR) POSITIVE A Blood Type Antibody Screen Crossmatch 06/12/24 06/12/24 06/12/24 03:38 03:48 04:54 MCV MCH MCHC RDW Plt Count MPV Immature Gran % (Auto) Neut % (Auto) Lymph % (Auto) [place] % (Auto) Eos % (Auto) Baso % (Auto) Lymph # (Auto) [place] # (Auto) Eos # (Auto) Baso # (Auto) Abs Immat Gran (auto) Absolute Neuts (auto) Absolute Nucleated RBC Nucleated RBC % (auto) PT INR APTT Hold Blue Top Anion Gap Estim Creat Clear Calc Estimated GFR POC Glucose Random Glucose Lactic Acid 1.7 Calcium Total Bilirubin AST ALT Alkaline Phosphatase Troponin I High Sens B-Natriuretic Peptide Total Protein Albumin Urine Color Urine Appearance Urine pH Ur Specific [place] Urine Protein Urine Glucose (UA) Urine Ketones Urine Blood Urine Nitrite Ur Leukocyte Esterase Urine RBC Urine WBC Ur Squamous Epith Cells Urine Bacteria Hyaline Casts Stool Occult Blood POSITIVE Influenza Type A (PCR) Influenza Type B (PCR) RSV RNA Qual (PCR) SARS-CoV-2 RNA (RT-PCR) Blood Type O Positive Antibody Screen NEGATIVE Crossmatch See Detail 06/12/24 07:53 MCV MCH MCHC RDW Plt Count MPV Immature Gran % (Auto) Neut % (Auto) Lymph % (Auto) [place] % (Auto) Eos % (Auto) Baso % (Auto) Lymph # (Auto) [place] # (Auto) Eos # (Auto) Baso # (Auto) Abs Immat Gran (auto) Absolute Neuts (auto) Absolute Nucleated RBC Nucleated RBC % (auto) PT INR APTT Hold Blue Top Anion Gap Estim Creat Clear Calc Estimated GFR POC Glucose 150 H Random Glucose Lactic Acid Calcium Total Bilirubin AST ALT Alkaline Phosphatase Troponin I High Sens B-Natriuretic Peptide Total Protein Albumin Urine Color Urine Appearance Urine pH Ur Specific [place] Urine Protein Urine Glucose (UA) Urine Ketones Urine Blood Urine Nitrite Ur Leukocyte Esterase Urine RBC Urine WBC Ur Squamous Epith Cells Urine Bacteria Hyaline Casts Stool Occult Blood Influenza Type A (PCR) Influenza Type B (PCR) RSV RNA Qual (PCR) SARS-CoV-2 RNA (RT-PCR) Blood Type Antibody Screen Crossmatch Assessment and Plan (1) Diabetes: Status: Acute Plan 78F PMH mechanical AVR on coumadin, DM, htn, breast cancer, osteoarthritis, presented with shortness of breath Acute hypoxic respiratory failure due to viral sepsis due to COVID and acute on chronic diastolic CHF IV Decadron, IV Lasix, check echo, wean O2 as tolerated, DuoNebs Acute blood loss anemia IV ppi, GI eval Monitor hemoglobin, given 1 unit PRBC in ED Mechanical AVR with supra therapeutic INR Hold Coumadin for now, monitor Diabetes Insulin sliding scale Hypertension amlodipine, valsartan, metoprolol DVT prophylaxis-on Coumadin with supratherapeutic INR Full code Patient with acute hypoxia due to COVID and CHF expected require at least 2 midnights inpatient Quality Stroke Does the patient have a stroke diagnosis?: No VTE Prior VTE?: No VTE Risk Level:: Medical - moderate - high VTE Device Contraindication: Treatment Not Indicated VTE Drug Contraindication: N/A - Med Ordered
--- NOTE | 2024-06-12 08:09 | MHC.EDTECH ---
Hourly rounds and vitals completed, poc was taken (150) RN aware, helped the with the bedpan, and patient resting quietly in her bed within the call hooper in her reach.
[2024-06-12 08:50] LABS: Iron 22 mcg/dL (30-160); Percent Iron Saturation 8 % (15-50); Total Iron Binding Capacity 274 mcg/dL (228-428); Unsaturated Iron Binding 252 ug/dL
[2024-06-12 09:00] LABS: Ferritin 32 ng/mL (10-250)
[2024-06-12] MEDS: Furosemide 40 MG/4 ML VIAL IVPUSH ×2 (09:42→18:34)
--- NOTE | 2024-06-12 09:48 | PC.NURSE ---
Transfusion completed (see TAR); no adverse reaction noted; no change in [place] (coarse throughout); pt resting quietly in room with family at bedside
--- NOTE | 2024-06-12 09:57 | PHA.MEDREC ---
Addendum entered by Myrna Vale RPh 06/12/24 10:22: reviewed by [facility] Original Note: Pharmacy Consult ? Medication Reconciliation Pharmacy has completed the medication reconciliation. Spoke with family member at bedside and patient to confirm medications. Family member had a list on his phone with only names and doses of the tablets. They confirmed she is still taking benzonatate. She has not used estradiol vaginal cream in 2 weeks, leaving off. Patient confirmed Lantus is 36 units in the morning. She takes metformin once daily at night. She stopped taking sertraline. Med list confirmed valsartan 160 mg. Family member and patient both report Warfarin, she gets it through mail order. She is seen at [facility] for blood work and adjustments. Per patient, she is currently taking 1 + 1/2 tabs of the 5 mg warfarin. No claims to support and office is closed for the weekend. She took all of her medications yesterday including the warfarin.
--- NOTE | 2024-06-12 11:45 | PM.GICN ---
History of Present Illness Data of Consult Service Date: 06/12/24 Primary Care Provider: Paco Schuler MD HPI Reason for consult: anemia 78F PMH mechanical AVR on coumadin, DM, htn, breast cancer, osteoarthritis, who I am seeing for assessment for anemia. She had noted 1 week of shortness of breath with dry cough and exertional dyspnea. testing revealed she is pos for covid. SHe was also noted to be anemia, with hgb 8 g/dl having been 10 g/dl 3 months ago. INR was also supratherapeutic. she denies rectal bleeding, melena, epistaxis, hematuria. Denies chest pain, abdo pain, nausea vomiting, diarrhea. Per son she had EGD and colo 5 yrs ago for anemia, and was found to have an ulcer treated with cautery. Review of Systems Review of Systems: Constitutional : No Weight loss, No Fever, No Chills ENT/Mouth : No sore throat, No Rhinorrhea Eyes: No Swelling, No Redness Cardiovascular : No Chest Pain, + SOB, No Edema Respiratory : No Cough, No Sputum, No Wheezing Gastrointestinal : see HPI Genitourinary : NO Dysuria, No Urinary Frequency, No Hematuria, No Urgency Musculoskeletal : + joint pain, No Myalgias, No Joint Swelling Skin : No Skin Lesions, No rash Neuro : No Weakness, No Numbness, No Dizziness, No Headache Psych : No Anxiety/Panic, No Depression Heme/Lymph: No Bruising, No Lymphadenopathy Endocrine : No Polyuria, No Polydipsia All other systems reviewed and are negative. COUNT INCLUDES THE [facility] Past Medical History Medical History Breast cancer Diabetes Anticoagulated on Coumadin Hypertension Family History Pertinent family history: no fh of crc Surgical History Surgical History Heart valve replaced Social History Social History Alcohol intake: never Smoked in Last 30 Days: No Use of substances other than those prescribed or required for medical reasons: No Advance Directives: No Advance Directives Information Provided: Yes Do you have a plan to hurt others: No Plan Meds Allergies Allergy/AdvReac Type Severity Reaction Status Date / Time No Known Allergies Allergy Verified 06/12/24 02:41 Active Medications: Current Medications Acetaminophen (Acetaminophen 325 Mg Tablet) 650 mg PO Q6H PRN PRN Reason: Pain, Mild 1-3,fever,headache Albuterol/Ipratropium (Albuterol/Iprat 2.5/0.5mg 3 Ml Ampul.Neb) 3 ml INHALE RQ4H WHILE AWAKE PRN PRN Reason: sob Amlodipine Besylate (Amlodipine Besylate 10 Mg Tablet) 10 mg PO DAILY@0900 [facility]; Protocol Atorvastatin Calcium (Atorvastatin Calcium 40 Mg Tablet) 40 mg PO DAILY@0900 [facility] Benzonatate (Benzonatate 100 Mg Capsule) 200 mg PO TID [facility] Calcium Carbonate (Calcium Carbonate 750 Mg Tab.Chew) 750 mg PO Q4H PRN PRN Reason: Heartburn Dexamethasone Sodium Phosphate (Dexamethasone Sod Phosphate 4 Mg/Ml Vial) 6 mg IVPUSH DAILY [facility] Fluticasone Propionate (Fluticasone Propionate Nasal 16 Gm [place]) 1 spray NOSTRIL-B BID PRN PRN Reason: Allergy Symptoms Furosemide (Furosemide 40 Mg/4 Ml Vial) 40 mg IVPUSH BID@0900,1800 [facility]; Protocol Last Admin: 06/12/24 09:42 Dose: 40 mg Glucose (Glucose Gel 15 Gm Gel..Gram.) 15 gm PO Q15M PRN; Protocol PRN Reason: per Hypoglycemia Standing Ord. Dextrose (D10) 250 mls @ 750 mls/hr IV Q15M PRN; Protocol PRN Reason: per Hypoglycemia Standing Ord. Insulin Glargine (Insulin Glargine,Hum.Rec.Anlog 100 Unit/Ml 10 Ml Vial) 36 unit SUBCUT DAILY@0900 [facility] Insulin Human Lispro (Insulin Lispro 100 Unit/Ml 3 Ml Vial) 0 unit SUBCUT QIDACHS [facility]; Protocol Magnesium Hydroxide (Milk Of Magnesia 30 Ml Oral.Susp) 30 ml PO DAILY PRN PRN Reason: Constipation Melatonin (Melatonin 3 Mg Tablet) 6 mg PO BEDTIME PRN PRN Reason: Insomnia Metoprolol Tartrate (Metoprolol Tartrate 50 Mg Tablet) 50 mg PO BID [facility]; Protocol Pantoprazole Sodium (Pantoprazole Sodium 40 Mg/10 Ml Vial) 40 mg IVPUSH BID@0630,1630 [facility] Sodium Chloride (0.9 % Sodium Chloride Flush 3 Ml Syringe) 3 ml IVFLUSH QSHIFT [facility] Valsartan (Valsartan 160 Mg Tablet) 160 mg PO DAILY@0900 [facility]; Protocol Home Medications ?Medication ?Instructions ?Recorded ?Confirmed ?Last Taken ?Type amlodipine 10 mg tablet 10 mg PO DAILY@0900 06/12/24 06/12/24 06/11/24 History atorvastatin 40 mg tablet 40 mg PO DAILY@0900 06/12/24 06/12/24 06/11/24 History benzonatate 200 mg capsule 200 mg PO TID 06/12/24 06/12/24 06/11/24 History fluticasone propionate 50 1 spray intranasal BID PRN Allergy 06/12/24 06/12/24 Unknown History mcg/actuation nasal Symptoms spray,suspension insulin glargine 100 unit/mL (3 36 unit subcut DAILY@0906/12/24 06/12/24 06/11/24 History mL) subcutaneous pen (Lantus Solostar U-100 Insulin) metformin 850 mg tablet 850 mg PO DAILY@2100 06/12/24 06/12/24 06/11/24 History metoprolol tartrate 50 mg tablet 50 mg PO BID 06/12/24 06/12/24 06/11/24 History pioglitazone 30 mg tablet 30 mg PO DAILY@0906/12/24 06/12/24 06/11/24 History valsartan 160 mg tablet 160 mg PO DAILY@0906/12/24 06/12/24 06/11/24 History warfarin 5 mg tablet 7.5 mg PO DAILY@1700 06/12/24 06/11/24 History Physical Exam Vital Signs: Vital Signs: Last Vital Signs Temp 98.3 F 06/12/24 10:32 Pulse 108 H 06/12/24 10:32 Resp 28 H 06/12/24 10:32 BP 141/63 H 06/12/24 10:32 Pulse Ox 94 06/12/24 10:32 O2 Del Method Nasal Cannula 06/12/24 10:32 O2 Flow Rate 2 06/12/24 10:32 BMI result Body Mass Index 32.9 EXAM: GENERAL: The patient is well developed and nontoxic. VITAL SIGNS:see workflow HEENT: Nonicteric sclerae, PERRLA, EOMI. Oropharynx clear. Moist mucous membranes. Conjunctivae appear well perfused. No thyroid mass. CHEST: Chest wall is nontender. HEART: Regular rate and rhythm without murmurs. metallic S2 LUNGS: Clear to auscultation bilaterally. ABDOMEN: Soft, positive bowel sounds, nontender, no organomegaly.no flank tenderness SKIN: No rash, no excessive bruising, petechiae, or purpura. NEUROLOGIC: Cranial nerves II-XII intact without motor/sensory deficit. Psych: normal affect Results Labs 06/12/24 03:15 06/12/24 03:15 Labs: Short CBC 06/12/24 Range/Units 03:15 WBC 12.6 H (4.8-10.8) X10*3/uL Hgb 8.4 L D (12.0-16.0) g/dl Hct 26.6 L (37.0-47.0) % Plt Count 258 D (160-400) X10*3/uL BMP 06/12/24 03:15 Sodium 140 Potassium 4.1 D Chloride 110 H Carbon Dioxide 20 L BUN 19 H Creatinine 0.85 Calcium 8.8 D Liver Function 06/12/24 Range/Units 03:15 Total Bilirubin 0.3 (0.0-1.0) mg/dL AST 29 (5-31) U/L ALT 15 (0-31) U/L Alkaline Phosphatase 109 (39-117) U/L Albumin 3.8 (3.5-5.0) g/dL Urine 06/12/24 Range/Units 03:37 Urine Color Yellow Urine Appearance Clear Urine pH 5.0 (5.0-9.0) Ur Specific [place] >= 1.030 H (1.005-1.025) Urine Protein 30 (1+) H (Neg-Trace) mg/dL Urine Glucose (UA) Negative (Negative) mg/dL Assessment and Plan (1) Occult GI bleeding: Status: Acute Plan 1/ Anemia with iron def markers. no overt GI bleeding but may have had ulcer in past. she is hemodynamically stable and has covid. PLAN: 1/ can commence PPI e.g protonix 20 mg bid 2/ transfuse aim for HGb 9-10 g/dl 3/ if she remains stable recommend early o/p egd,colo so she can recover from her covid unless she has evidence of active ongoing bleeding Procedures Date of Service Date of Service: 06/12/24
--- NOTE | 2024-06-12 11:47 | MHC.EDTECH ---
I helped the patient with bedpan and got clean ,she is resting quietly in her bed now
[2024-06-12 12:56] LABS: Glucose, Whole Blood 237 mg/dL (60-115)
[2024-06-12] MEDS: Insulin Lispro 100 UNIT/ML 3 ML VIAL SUBCUT ×3 (13:11→21:16)
[2024-06-12] MEDS: Benzonatate 100 MG CAPSULE 200 MG PO ×2 (16:12→21:16)
[2024-06-12] MEDS: Pantoprazole Sodium 40 MG/10 ML VIAL IVPUSH (16:12)
[2024-06-12] MEDS: Acetaminophen 325 MG TABLET 650 MG PO (16:35)
[2024-06-12 18:16] LABS: Glucose, Whole Blood 266 mg/dL (60-115)
--- NOTE | 2024-06-12 18:35 | PC.NURSE ---
Pt denies pain at this time; temp controlled with po Tylenol; [place] in place per pt request; family updated on pt condition; awaiting room for admission
--- NOTE | 2024-06-12 20:01 | PC.NURSE ---
Pt resting comfortably on stretcher in no apparent distress, denies pain, nausea/vomiting or difficulty breathing. Pt wearing 2L O2 via NC, 94-95%. Pt ate 3/4 of dinner. call hooper within reach, on monitoring analyst. plan of care ongoing
[2024-06-12 20:45] LABS: Glucose, Whole Blood 246 mg/dL (60-115)
[2024-06-12] MEDS: Metoprolol Tartrate 50 MG TABLET PO (21:16)
[2024-06-13] VITALS (8 sets, daily range): BP systolic 136–146; BP diastolic 60–67; PULSE 76–92; RESP 16–20; TEMP 36.6–36.9; O2SAT 90–97
--- NOTE | 2024-06-13 00:04 | MHC.EDTECH ---
1200ml of urine emptied from suction canister from [facility].
[2024-06-13] MEDS: 0.9 % Sodium Chloride Flush 3 ML SYRINGE IVFLUSH ×3 (00:33→21:37)
[2024-06-13 04:56] LABS: Hematocrit 30.5 % (37.0-47.0); Hemoglobin 9.7 g/dl (12.0-16.0); Mean Corpuscular HGB Conc 31.8 g/dl (31.0-35.0); Mean Corpuscular Hemoglobin 26.9 pg (27.0-33.0); Mean Corpuscular Volume 84.5 fL (80.0-98.0); Mean Platelet Volume 10.6 fL (9.4-12.3); Platelet Count 241 X10*3/uL (160-400); Red Blood Count 3.61 X10*6/uL (4.20-5.50); White Blood Count 9.4 X10*3/uL (4.8-10.8)
[2024-06-13 05:28] LABS: Anion Gap 13 (12-20); Blood Urea Nitrogen 23 mg/dL (9-16); Calcium 9.1 mg/dL (8.4-10.2); Carbon Dioxide 27 mmol/L (22-29); Chloride 104 mmol/L (96-108); Creatinine Clr Calc Pharmacy 43.2; Estimated Glomerular Filt Rate 55; Glucose Random 185 mg/dL (60-115); Potassium 3.9 mmol/L (3.3-5.1); Sodium 140 mmol/L (135-145)
--- NOTE | 2024-06-13 05:57 | MHC.EDTECH ---
Pts underpads found to be wet. Pt cleaned and changed. Vital signs taken, call hooper within reach/
[2024-06-13] MEDS: Pantoprazole Sodium 40 MG/10 ML VIAL IVPUSH ×2 (06:23→16:24)
[2024-06-13] MEDS: Insulin Lispro 100 UNIT/ML 3 ML VIAL SUBCUT ×4 (07:23→21:36)
[2024-06-13 07:25] LABS: Glucose, Whole Blood 162 mg/dL (60-115)
[2024-06-13] MEDS: dexAMETHasone sod phosphate 4 MG/ML VIAL 6 MG IVPUSH (08:52)
[2024-06-13] MEDS: amLODIPine Besylate 10 MG TABLET PO (08:53)
[2024-06-13] MEDS: Metoprolol Tartrate 50 MG TABLET PO ×2 (08:53→21:37)
[2024-06-13] MEDS: Furosemide 40 MG/4 ML VIAL IVPUSH ×2 (08:53→18:28)
[2024-06-13] MEDS: Benzonatate 100 MG CAPSULE 200 MG PO ×3 (08:53→21:37)
[2024-06-13] MEDS: Valsartan 160 MG TABLET PO (08:53)
[2024-06-13] MEDS: Insulin Glargine,Hum.rec.anlog 100 UNIT/ML 10 ML VIAL 36 UNIT SUBCUT (08:53)
[2024-06-13] MEDS: Atorvastatin Calcium 40 MG TABLET PO (08:53)
--- NOTE | 2024-06-13 09:27 | PC.NURSE ---
assumed care of patient at 0700, patient is awake, alert and oriented, repositioned and boosted in bed. patient currently on 2lNC, resp even and unlabored, VSS. patient medicated per JUL, takes meds whole with water. family at bedside
--- NOTE | 2024-06-13 10:02 | HO.PM.IMPN ---
Subjective Subjective Date of Service: 06/13/24 Interval History: Still short of breath Physical Exam Vital Signs: Vital Signs: Last Vital Signs Temp 98.5 F 06/13/24 07:14 Pulse 78 06/13/24 07:14 Resp 20 06/13/24 07:14 BP 142/60 H 06/13/24 07:14 Pulse Ox 97 06/13/24 07:14 O2 Del Method Nasal Cannula 06/13/24 07:14 O2 Flow Rate 2 06/13/24 07:14 BMI result Body Mass Index 32.9 General: AO X 3, no acute distress Resp: Crackles and wheezing bilateral, no accessory muscles used CVS: S1,S2,RRR, trace edema GI: soft, non tender, non distended Neuro: motor grossly intact, alert Psych: appropriate affect, appropriate insight Objective Data Active Medications Acetaminophen (Acetaminophen 325 Mg Tablet) 650 mg PO Q6H PRN PRN Reason: Pain, Mild 1-3,fever,headache Last Admin: 06/12/24 16:35 Dose: 650 mg Documented By: ALIZA Albuterol/Ipratropium (Albuterol/Iprat 2.5/0.5mg 3 Ml Ampul.Neb) 3 ml INHALE RQ4H WHILE AWAKE PRN PRN Reason: sob Amlodipine Besylate (Amlodipine Besylate 10 Mg Tablet) 10 mg PO DAILY@0900 [facility]; Protocol Last Admin: 06/13/24 08:53 Dose: 10 mg Documented By: AMBREEN Atorvastatin Calcium (Atorvastatin Calcium 40 Mg Tablet) 40 mg PO DAILY@0900 [facility] Last Admin: 06/13/24 08:53 Dose: 40 mg Documented By: AMBREEN Benzonatate (Benzonatate 100 Mg Capsule) 200 mg PO TID [facility] Last Admin: 06/13/24 08:53 Dose: 200 mg Documented By: AMBREEN Calcium Carbonate (Calcium Carbonate 750 Mg Tab.Chew) 750 mg PO Q4H PRN PRN Reason: Heartburn Dexamethasone Sodium Phosphate (Dexamethasone Sod Phosphate 4 Mg/Ml Vial) 6 mg IVPUSH DAILY [facility] Last Admin: 06/13/24 08:52 Dose: 6 mg Documented By: AMBREEN Fluticasone Propionate (Fluticasone Propionate Nasal 16 Gm [place]) 1 spray NOSTRIL-B BID PRN PRN Reason: Allergy Symptoms Furosemide (Furosemide 40 Mg/4 Ml Vial) 40 mg IVPUSH BID@0900,1800 [facility]; Protocol Last Admin: 06/13/24 08:53 Dose: 40 mg Documented By: AMBREEN Glucose (Glucose Gel 15 Gm Gel..Gram.) 15 gm PO Q15M PRN; Protocol PRN Reason: per Hypoglycemia Standing Ord. Dextrose (D10) 250 mls @ 750 mls/hr IV Q15M PRN; Protocol PRN Reason: per Hypoglycemia Standing Ord. Insulin Glargine (Insulin Glargine,Hum.Rec.Anlog 100 Unit/Ml 10 Ml Vial) 36 unit SUBCUT DAILY@0900 [facility] Last Admin: 06/13/24 08:53 Dose: 36 unit Documented By: AMBREEN Insulin Human Lispro (Insulin Lispro 100 Unit/Ml 3 Ml Vial) 0 unit SUBCUT QIDACHS [facility]; Protocol Last Admin: 06/13/24 07:23 Dose: 2 unit Documented By: AMBREEN Magnesium Hydroxide (Milk Of Magnesia 30 Ml Oral.Susp) 30 ml PO DAILY PRN PRN Reason: Constipation Melatonin (Melatonin 3 Mg Tablet) 6 mg PO BEDTIME PRN PRN Reason: Insomnia Metoprolol Tartrate (Metoprolol Tartrate 50 Mg Tablet) 50 mg PO BID [facility]; Protocol Last Admin: 06/13/24 08:53 Dose: 50 mg Documented By: AMBREEN Pantoprazole Sodium (Pantoprazole Sodium 40 Mg/10 Ml Vial) 40 mg IVPUSH BID@0630,1630 [facility] Last Admin: 06/13/24 06:23 Dose: 40 mg Documented By: MARTI Sodium Chloride (0.9 % Sodium Chloride Flush 3 Ml Syringe) 3 ml IVFLUSH QSHIFT [facility] Last Admin: 06/13/24 07:48 Dose: Not Given Documented By: AMBREEN Non-Admin Reason: See Note Valsartan (Valsartan 160 Mg Tablet) 160 mg PO DAILY@0900 [facility]; Protocol Last Admin: 06/13/24 08:53 Dose: 160 mg Documented By: AMBREEN Labs 06/13/24 04:28 06/13/24 04:28 Labs: Laboratory Results - last 24 hr 06/12/24 06/12/24 06/12/24 12:48 18:11 20:40 MCV MCH MCHC RDW Plt Count MPV Absolute Nucleated RBC Nucleated RBC % (auto) PT INR Anion Gap Estim Creat Clear Calc Estimated GFR POC Glucose 237 H 266 H 246 H Random Glucose Calcium Magnesium 06/13/24 06/13/24 04:28 07:16 MCV 84.5 MCH 26.9 L MCHC 31.8 RDW 15.0 Plt Count 241 MPV 10.6 Absolute Nucleated RBC 0.000 Nucleated RBC % (auto) 0.0 PT 59.0 H INR 5.0 H* Anion Gap 13 Estim Creat Clear Calc 43.2 Estimated GFR 55 POC Glucose 162 H Random Glucose 185 H Calcium 9.1 Magnesium 2.0 Microbiology Microbiology Results: Microbiology 06/12/24 03:38 Blood Culture - Preliminary Blood - Venous No growth after 24 hours. 06/12/24 03:37 Blood Culture - Preliminary Blood - Venous No growth after 24 hours. Assessment and Plan (1) Hypertension: Status: Acute Plan 78F PMH mechanical AVR on coumadin, DM, htn, breast cancer, osteoarthritis, presented with shortness of breath Acute hypoxic respiratory failure due to viral sepsis due to COVID and acute on chronic diastolic CHF IV Decadron, IV Lasix, check echo, wean O2 as tolerated, DuoNebs Acute blood loss anemia IV ppi, GI appreciated, nonemergent EGD/colonoscopy Monitor hemoglobin, given 1 unit PRBC in ED hgb improved appropriately Mechanical AVR with supra therapeutic INR Hold Coumadin for now, monitor Diabetes Insulin sliding scale Hypertension amlodipine, valsartan, metoprolol DVT prophylaxis-on Coumadin with supratherapeutic INR Full code reason for continued hospitalization:hypoxic Quality Stroke Does the patient have a stroke diagnosis?: No VTE Prior VTE?: No VTE Risk Level:: Medical - moderate - high VTE Device Contraindication: Treatment Not Indicated VTE Drug Contraindication: N/A - Med Ordered
--- NOTE | 2024-06-13 10:38 | MHC.CM.PN ---
Patient is Covid (+); CM met briefly with Patient and Son, at bedside, in the ED and with Patient's permission, spoke with Son, outside of Patient's room. Patient lives in a house with her Son/HCP/Silverio and her . Patient's goal is to return home/self care as [employer]; Patient may benefit from a PT Eval to assist with disposition. CM has initiated and will follow for dc planning. PCP is Dr. Paco Schuler and Son/HCP will transport if dc'd to home.
[2024-06-13 15:28] LABS: Glucose, Whole Blood 317 mg/dL (60-115)
[2024-06-13 15:28] LABS: Glucose, Whole Blood 216 mg/dL (60-115)
[2024-06-13 16:08] LABS: Glucose, Whole Blood 314 mg/dL (60-115)
[2024-06-13 21:29] LABS: Glucose, Whole Blood 275 mg/dL (60-115)
[2024-06-14] VITALS: BP 144/66; PULSE 69; RESP 20; TEMP 36.6; O2SAT 90
[2024-06-14 04:00] VITALS: BP 113/57; PULSE 86; RESP 16; TEMP 36.4; O2SAT 92
[2024-06-14] MEDS: Pantoprazole Sodium 40 MG/10 ML VIAL IVPUSH ×2 (05:04→17:08)
--- NOTE | 2024-06-14 07:00 | CA_ITS ---
Transthoracic Echocardiogram Patient (Last, First, Middle): Emily Whyte, Gender: Female Date of : 1945 Age: 78 Procedure Date: 06/14/2024 Procedure Type: Transthoracic Echocardiogram Location: [facility] Height: 152.4 cm Weight: 76.2 kg BSA: 1.73 m2 Heart Rate: bpm BP: 113 / 57 mmHg Talent Director: Referring MD: Delon Mcclendon MD Weaving Supervisor: Mariano Obando MD Symptoms: chf Study Quality: Adequate ECG Rhythm: Sinus Conclusions: - 1. 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 Low normal LV ejection fraction of 50-55% with mild LVH with grade 2 diastolic dysfunction with underlying regional wall motion abnormality consistent with coronary disease 3. Severe mitral annular calcification with [id number] mitral stenosis 4. Squy-gt-mwhoxbnr enlargement of ascending aorta at 4.4 cm 5. No gross pericardial effusion Findings Left Ventricle Normal left ventricular cavity size. There is mildly increased left ventricular wall thickness. The left ventricular systolic function is low normal. The visually estimated ejection fraction is between 50-55%. Spectral Doppler is indicative of a pseudonormal filling pattern. E/E prime ratio is >15, consistent with elevated filling pressures. Evidence suggests grade II (moderate) diastolic dysfunction. Wall Motion Rest Echo Findings The inferoseptal wall and basal inferior segment are hypokinetic. All other scored wall segments showed normal motion. Right Ventricle Normal right ventricular cavity size. There is mildly decreased right ventricular systolic function. Atria The left atrium is severely dilated. Interatrial shunt cannot be excluded. The right atrium is mildly dilated. Aortic Valve A bioprosthetic aortic valve is present. The prosthetic aortic valve appears to be functioning abnormally. Echo findings are consistent with stenosis of the aortic valve prosthesis. There is moderate to severe aortic valve stenosis. The mean gradient is 26 mmHg. The aortic valve area is 1.18 cm2. There is no aortic valve regurgitation. Mitral Valve There is mild anterior and severe posterior mitral leaflet thickening. There is severe mitral annular calcification. There is mild mitral valve regurgitation. There is mild to moderate mitral valve stenosis. Pulmonic Valve The pulmonic valve was not well visualized. Tricuspid Valve The tricuspid valve was not well visualized. Tricuspid regurgitation envelope is inadequate for calculation of right ventricular systolic pressure. Normal right atrial pressure. Great Vessels The pulmonary artery was not well visualized. There is mild dilatation of the ascending aorta measuring 4.40 cm. Venous The inferior vena cava is normal in size and collapses greater than 50% with inspiration. Pericardium/Pleural There is no evidence of pericardial effusion. Prior Study Comparison No prior study available for comparison. Measurements 2D Linear Measurements IVSd: 1.27 0.6-0.9/0.6-1.0 cm LVIDd: 4.89 3.9-5.3/4.2-5.9 cm LVIDd Index: 2.83 2.4-3.2/2.2-3.1 cm/m2 LVIDs: 3.24 2.0-3.6 cm LVPWd: 1.23 0.7-1.1 cm Ao Root: 3.10 2.1-3.5 cm LA Diam: 3.90 2.7-3.8/3.0-4.0 cm LAIDs Index: 2.25 1.5-2.3 cm/m2 LV Mass: 298.12 67-162/88-224 g LV Mass Index: 172.32 43-95/49-115 g/m2 LVOT Diam: 2.00 3.0+(-)1.3 cm 2D Systolic Function EF 4C: 45.10 >55% EF 2C: 49.60 >55% EF BiP: 50.10 >55% Mitral Valve MV VTI: 0.46 MV Pk Cruz: 1.48 MV Mn Cruz: 1.02 MV Pk Grad: 9.00 MV Mn Grad: 5.00 MV Pk E: 1.35 MV PK A: 1.24 MV Decel Time: 184.00 E/A: 1.10 E'Lateral: 6.20 E'Medial: 3.70 E/E' Med: 36.50 E/E' Lat: 21.80 PHT: 54.00 MVA PHT: 4.07 MVA Continuity: 1.78 Decel Ward: 7.36 Aortic Valve AoV Pk Cruz: 3.23 AoV Mn Cruz: 2.41 AoV VTI: 0.70 AoV Pk Grad: 42.00 Aov Mn Grad: 26.00 SELENE Cont.VTI: 1.18 LVOT LVOT Pk Cruz: 1.00 LVOT Mn Cruz: 0.71 LVOT VTI: 0.26 LVOT Pk Grad: 4.00 LVOT Mn Grad: 3.00 LVOT Diam: 2.00 LVOT Area: 3.14 Diastolic Function MV Pk E: 1.35 MV Pk A: 1.24 E/A: 1.10 E'Medial: 3.70 E/E' Med: 36.50 E' Laterial: 6.20 E/E' Lat: 21.80 Right Ventricle TAPSE (mm): 17.00 TVS' Cruz: 10.00 Tricuspid Valve TR Pk Cruz: 3.17 TR Pk Grad: 40.00 RA Press: 3.00 Great Vessels Aorta Ao Root-2D: 3.10 2.0-3.7 cm Ao Asc: 4.40 2.1-3.4 cm Pulmonary Valve PV Pk Cruz: 1.36 Peak PV Grad: 7.00 Updated in Other Vendor System with Status of Final Mariano Obando MD electronically signed on 06/14/2024 5:13:13 PM with status of Final
[2024-06-14 07:12] LABS: INTERNATIONAL NORM RATIO 2.6 (0.9-1.1); Prothrombin Time 30.1 SEC (10.9-12.4)
[2024-06-14 07:13] LABS: Hemoglobin 10.8 g/dl (12.0-16.0); Mean Corpuscular HGB Conc 33.8 g/dl (31.0-35.0); Mean Corpuscular Hemoglobin 28.6 pg (27.0-33.0); Mean Corpuscular Volume 84.9 fL (80.0-98.0); Mean Platelet Volume 10.6 fL (9.4-12.3); Platelet Count 293 X10*3/uL (160-400); Red Blood Count 3.77 X10*6/uL (4.20-5.50); White Blood Count 9.3 X10*3/uL (4.8-10.8)
[2024-06-14 07:22] VITALS: BP 155/70; PULSE 76; RESP 12; TEMP 36.9; O2SAT 89
[2024-06-14 07:27] LABS: Anion Gap 15 (12-20); Blood Urea Nitrogen 32 mg/dL (9-16); Calcium 9.2 mg/dL (8.4-10.2); Carbon Dioxide 29 mmol/L (22-29); Chloride 100 mmol/L (96-108); Creatinine Clr Calc Pharmacy 36.2; Estimated Glomerular Filt Rate 45; Glucose Random 179 mg/dL (60-115); Potassium 3.7 mmol/L (3.3-5.1); Sodium 140 mmol/L (135-145)
[2024-06-14 08:24] LABS: Glucose, Whole Blood 175 mg/dL (60-115)
[2024-06-14] MEDS: Metoprolol Tartrate 50 MG TABLET PO ×2 (08:33→21:04)
[2024-06-14] MEDS: Valsartan 160 MG TABLET PO (08:33)
[2024-06-14] MEDS: Benzonatate 100 MG CAPSULE 200 MG PO ×3 (08:35→21:04)
[2024-06-14] MEDS: amLODIPine Besylate 10 MG TABLET PO (08:35)
[2024-06-14] MEDS: Furosemide 40 MG TABLET PO (08:35)
[2024-06-14] MEDS: Atorvastatin Calcium 40 MG TABLET PO (08:35)
[2024-06-14] MEDS: Insulin Lispro 100 UNIT/ML 3 ML VIAL SUBCUT ×4 (08:36→21:04)
[2024-06-14] MEDS: dexAMETHasone sod phosphate 4 MG/ML VIAL 6 MG IVPUSH (08:36)
[2024-06-14] MEDS: Insulin Glargine,Hum.rec.anlog 100 UNIT/ML 10 ML VIAL 36 UNIT SUBCUT (08:36)
[2024-06-14] MEDS: 0.9 % Sodium Chloride Flush 3 ML SYRINGE IVFLUSH ×2 (08:37→21:05)
--- NOTE | 2024-06-14 10:43 | HO.PM.IMPN ---
Subjective Subjective Date of Service: 06/14/24 Interval History: Still short of breath Physical Exam Vital Signs: Vital Signs: Last Vital Signs Temp 98.4 F 06/14/24 07:22 Pulse 76 06/14/24 07:22 Resp 12 06/14/24 07:22 BP 155/70 H 06/14/24 07:22 Pulse Ox 89 L 06/14/24 07:22 O2 Del Method Nasal Cannula 06/14/24 07:22 O2 Flow Rate 2 06/14/24 07:22 BMI result Body Mass Index 32.9 General: AO X 3, no acute distress Resp: Crackles and wheezing bilateral, no accessory muscles used CVS: S1,S2,RRR, trace edema GI: soft, non tender, non distended Neuro: motor grossly intact, alert Psych: appropriate affect, appropriate insight Objective Data Active Medications Acetaminophen (Acetaminophen 325 Mg Tablet) 650 mg PO Q6H PRN PRN Reason: Pain, Mild 1-3,fever,headache Last Admin: 06/12/24 16:35 Dose: 650 mg Documented By: ALIZA Albuterol/Ipratropium (Albuterol/Iprat 2.5/0.5mg 3 Ml Ampul.Neb) 3 ml INHALE RQ4H WHILE AWAKE PRN PRN Reason: sob Amlodipine Besylate (Amlodipine Besylate 10 Mg Tablet) 10 mg PO DAILY@0900 COUNT INCLUDES THE [facility]; Protocol Last Admin: 06/14/24 08:35 Dose: 10 mg Documented By: DUNCAN Atorvastatin Calcium (Atorvastatin Calcium 40 Mg Tablet) 40 mg PO DAILY@0900 COUNT INCLUDES THE [facility] Last Admin: 06/14/24 08:35 Dose: 40 mg Documented By: DUNCAN Benzonatate (Benzonatate 100 Mg Capsule) 200 mg PO TID COUNT INCLUDES THE [facility] Last Admin: 06/14/24 08:35 Dose: 200 mg Documented By: DUNCAN Calcium Carbonate (Calcium Carbonate 750 Mg Tab.Chew) 750 mg PO Q4H PRN PRN Reason: Heartburn Dexamethasone Sodium Phosphate (Dexamethasone Sod Phosphate 4 Mg/Ml Vial) 6 mg IVPUSH DAILY COUNT INCLUDES THE [facility] Last Admin: 06/14/24 08:36 Dose: 6 mg Documented By: DUNCAN Fluticasone Propionate (Fluticasone Propionate Nasal 16 Gm [place]) 1 spray NOSTRIL-B BID PRN PRN Reason: Allergy Symptoms Furosemide (Furosemide 40 Mg Tablet) 40 mg PO DAILY COUNT INCLUDES THE [facility]; Protocol Last Admin: 06/14/24 08:35 Dose: 40 mg Documented By: DUNCAN Glucose (Glucose Gel 15 Gm Gel..Gram.) 15 gm PO Q15M PRN; Protocol PRN Reason: per Hypoglycemia Standing Ord. Dextrose (D10) 250 mls @ 750 mls/hr IV Q15M PRN; Protocol PRN Reason: per Hypoglycemia Standing Ord. Insulin Glargine (Insulin Glargine,Hum.Rec.Anlog 100 Unit/Ml 10 Ml Vial) 36 unit SUBCUT DAILY@0900 COUNT INCLUDES THE [facility] Last Admin: 06/14/24 08:36 Dose: 36 unit Documented By: DUNCAN Insulin Human Lispro (Insulin Lispro 100 Unit/Ml 3 Ml Vial) 0 unit SUBCUT QIDACHS COUNT INCLUDES THE [facility]; Protocol Last Admin: 06/14/24 08:36 Dose: 2 unit Documented By: DUNCAN Magnesium Hydroxide (Milk Of Magnesia 30 Ml Oral.Susp) 30 ml PO DAILY PRN PRN Reason: Constipation Melatonin (Melatonin 3 Mg Tablet) 6 mg PO BEDTIME PRN PRN Reason: Insomnia Metoprolol Tartrate (Metoprolol Tartrate 50 Mg Tablet) 50 mg PO BID COUNT INCLUDES THE [facility]; Protocol Last Admin: 06/14/24 08:33 Dose: 50 mg Documented By: DUNCAN Pantoprazole Sodium (Pantoprazole Sodium 40 Mg/10 Ml Vial) 40 mg IVPUSH BID@0630,1630 COUNT INCLUDES THE [facility] Last Admin: 06/14/24 05:04 Dose: 40 mg Documented By: MARLYN Sodium Chloride (0.9 % Sodium Chloride Flush 3 Ml Syringe) 3 ml IVFLUSH [facility] Last Admin: 06/14/24 08:37 Dose: 3 ml Documented By: DUNCAN Valsartan (Valsartan 160 Mg Tablet) 160 mg PO DAILY@0900 COUNT INCLUDES THE [facility]; Protocol Last Admin: 06/14/24 08:33 Dose: 160 mg Documented By: DUNCAN Labs 06/14/24 06:30 06/14/24 06:30 Labs: Laboratory Results - last 24 hr 06/13/24 06/13/24 06/13/24 13:05 15:23 15:56 MCV MCH MCHC RDW Plt Count MPV Absolute Nucleated RBC Nucleated RBC % (auto) PT INR Anion Gap Estim Creat Clear Calc Estimated GFR POC Glucose 216 H 317 H 314 H Random Glucose Calcium 06/13/24 06/14/24 06/14/24 21:24 06:30 08:12 MCV 84.9 MCH 28.6 MCHC 33.8 RDW 15.0 Plt Count 293 MPV 10.6 Absolute Nucleated RBC 0.000 Nucleated RBC % (auto) 0.0 PT 30.1 H D INR 2.6 H D Anion Gap 15 Estim Creat Clear Calc 36.2 Estimated GFR 45 POC Glucose 275 H 175 H Random Glucose 179 H Calcium 9.2 Microbiology Microbiology Results: Microbiology 06/12/24 03:38 Blood Culture - Preliminary Blood - Venous No growth after 48 hours. 06/12/24 03:37 Blood Culture - Preliminary Blood - Venous No growth after 48 hours. Assessment and Plan (1) Hypertension: Status: Acute Plan 78F PMH mechanical AVR on coumadin, DM, htn, breast cancer, osteoarthritis, presented with shortness of breath Acute hypoxic respiratory failure due to viral sepsis due to COVID and acute on chronic diastolic CHF IV Decadron, IV Lasix, check echo, wean O2 as tolerated, DuoNebs Acute blood loss anemia IV ppi, GI appreciated, nonemergent EGD/colonoscopy Monitor hemoglobin, given 1 unit PRBC in ED hgb improved appropriately Mechanical AVR with supra therapeutic INR inr now therapeutic will restart Diabetes Insulin sliding scale Hypertension amlodipine, valsartan, metoprolol DVT prophylaxis-on Coumadin Full code reason for continued hospitalization:hypoxic Quality Stroke Does the patient have a stroke diagnosis?: No VTE Prior VTE?: No VTE Risk Level:: Medical - moderate - high VTE Device Contraindication: Treatment Not Indicated VTE Drug Contraindication: N/A - Med Ordered
[2024-06-14] MEDS: Doxycycline Monohydrate 100 MG CAPSULE PO ×2 (11:18→21:04)
[2024-06-14 11:26] VITALS: BP 148/65; PULSE 70; RESP 14; TEMP 36.4; O2SAT 97
--- NOTE | 2024-06-14 11:52 | MHC.CM.PN ---
Addendum entered by Rosa Maria Ann RN 06/14/24 11:54: PT WILL NEED TO WEAN OFF O2. Original Note: EMR REVIEWED, PT W/COVID19 AND CHF EXAC, PT REMAINS ON IV DECADRON SWITCHED TO PO LASIX TODAY, PER HSOPITALIST PT REMAINS ACUTE, ANTIC PT WILL NEED P.T. FOR DISPO, CM WILL CONT TO FOLLOW DC NEEDS.
[2024-06-14 11:53] LABS: Glucose, Whole Blood 247 mg/dL (60-115)
[2024-06-14 15:53] VITALS: BP 156/70; PULSE 79; RESP 16; TEMP 37.2; O2SAT 95
[2024-06-14 16:55] LABS: Glucose, Whole Blood 324 mg/dL (60-115)
[2024-06-14] MEDS: Warfarin Sodium 4 MG TABLET PO (18:29)
[2024-06-14 19:59] VITALS: BP 125/60; PULSE 78; RESP 19; TEMP 36.3; O2SAT 92
[2024-06-14 20:53] LABS: Glucose, Whole Blood 294 mg/dL (60-115)
[2024-06-15] VITALS (7 sets, daily range): BP systolic 119–155; BP diastolic 59–79; PULSE 59–73; RESP 16–24; TEMP 36.1–36.9; O2SAT 93–97
[2024-06-15] MEDS: Melatonin 3 MG TABLET 6 MG PO (00:18)
[2024-06-15] MEDS: Pantoprazole Sodium 40 MG/10 ML VIAL IVPUSH (05:41)
[2024-06-15 07:34] LABS: Hematocrit 32.5 % (37.0-47.0); Hemoglobin 10.3 g/dl (12.0-16.0); Mean Corpuscular HGB Conc 31.7 g/dl (31.0-35.0); Mean Corpuscular Hemoglobin 26.7 pg (27.0-33.0); Mean Corpuscular Volume 84.2 fL (80.0-98.0); Mean Platelet Volume 10.5 fL (9.4-12.3); Platelet Count 272 X10*3/uL (160-400); Red Blood Count 3.86 X10*6/uL (4.20-5.50); White Blood Count 8.4 X10*3/uL (4.8-10.8)
[2024-06-15 07:43] LABS: INTERNATIONAL NORM RATIO 2.3 (0.9-1.1); Prothrombin Time 26.5 SEC (10.9-12.4)
[2024-06-15 07:53] LABS: Anion Gap 12 (12-20); Blood Urea Nitrogen 42 mg/dL (9-16); Calcium 8.5 mg/dL (8.4-10.2); Carbon Dioxide 31 mmol/L (22-29); Chloride 100 mmol/L (96-108); Creatinine Clr Calc Pharmacy 41.1; Estimated Glomerular Filt Rate 52; Glucose Random 199 mg/dL (60-115); Potassium 3.5 mmol/L (3.3-5.1); Sodium 139 mmol/L (135-145)
[2024-06-15 08:05] LABS: Glucose, Whole Blood 180 mg/dL (60-115)
[2024-06-15] MEDS: Insulin Lispro 100 UNIT/ML 3 ML VIAL SUBCUT ×4 (08:40→20:46)
[2024-06-15] MEDS: Insulin Glargine,Hum.rec.anlog 100 UNIT/ML 10 ML VIAL 36 UNIT SUBCUT (08:40)
[2024-06-15] MEDS: Atorvastatin Calcium 40 MG TABLET PO (08:41)
[2024-06-15] MEDS: dexAMETHasone sod phosphate 4 MG/ML VIAL 6 MG IVPUSH (08:41)
[2024-06-15] MEDS: amLODIPine Besylate 10 MG TABLET PO (08:41)
[2024-06-15] MEDS: Valsartan 160 MG TABLET PO (08:41)
[2024-06-15] MEDS: Benzonatate 100 MG CAPSULE 200 MG PO ×3 (08:41→20:45)
[2024-06-15] MEDS: Metoprolol Tartrate 50 MG TABLET PO ×2 (08:41→20:44)
[2024-06-15] MEDS: Furosemide 40 MG TABLET PO (08:41)
--- NOTE | 2024-06-15 09:43 | HO.PM.IMPN ---
Subjective Subjective Date of Service: 06/15/24 Interval History: Still short of breath Physical Exam Vital Signs: Vital Signs: Last Vital Signs Temp 97.5 F 06/15/24 07:50 Pulse 67 06/15/24 07:50 Resp 16 06/15/24 07:50 BP 134/66 06/15/24 07:50 Pulse Ox 93 06/15/24 07:50 O2 Del Method Nasal Cannula 06/15/24 07:50 O2 Flow Rate 1.5 06/15/24 07:50 BMI result Body Mass Index 32.9 General: AO X 3, no acute distress Resp: Crackles and wheezing bilateral, no accessory muscles used CVS: S1,S2,RRR, trace edema GI: soft, non tender, non distended Neuro: motor grossly intact, alert Psych: appropriate affect, appropriate insight Objective Data Active Medications Acetaminophen (Acetaminophen 325 Mg Tablet) 650 mg PO Q6H PRN PRN Reason: Pain, Mild 1-3,fever,headache Last Admin: 06/12/24 16:35 Dose: 650 mg Documented By: ALIZA Albuterol/Ipratropium (Albuterol/Iprat 2.5/0.5mg 3 Ml Ampul.Neb) 3 ml INHALE RQ4H WHILE AWAKE PRN PRN Reason: sob Amlodipine Besylate (Amlodipine Besylate 10 Mg Tablet) 10 mg PO DAILY@0900 [facility]; Protocol Last Admin: 06/15/24 08:41 Dose: 10 mg Documented By: NAPOLEON Atorvastatin Calcium (Atorvastatin Calcium 40 Mg Tablet) 40 mg PO DAILY@0900 [facility] Last Admin: 06/15/24 08:41 Dose: 40 mg Documented By: NAPOLEON Benzonatate (Benzonatate 100 Mg Capsule) 200 mg PO TID [facility] Last Admin: 06/15/24 08:41 Dose: 200 mg Documented By: NAPOLEON Calcium Carbonate (Calcium Carbonate 750 Mg Tab.Chew) 750 mg PO Q4H PRN PRN Reason: Heartburn Dexamethasone Sodium Phosphate (Dexamethasone Sod Phosphate 4 Mg/Ml Vial) 6 mg IVPUSH DAILY [facility] Last Admin: 06/15/24 08:41 Dose: 6 mg Documented By: NAPOLEON Doxycycline Monohydrate (Doxycycline Monohydrate 100 Mg Capsule) 100 mg PO Q12H [facility] Last Admin: 06/14/24 21:04 Dose: 100 mg Documented By: MARLYN Fluticasone Propionate (Fluticasone Propionate Nasal 16 Gm [place]) 1 spray NOSTRIL-B BID PRN PRN Reason: Allergy Symptoms Furosemide (Furosemide 40 Mg Tablet) 40 mg PO DAILY [facility]; Protocol Last Admin: 06/15/24 08:41 Dose: 40 mg Documented By: NAPOLEON Glucose (Glucose Gel 15 Gm Gel..Gram.) 15 gm PO Q15M PRN; Protocol PRN Reason: per Hypoglycemia Standing Ord. Dextrose (D10) 250 mls @ 750 mls/hr IV Q15M PRN; Protocol PRN Reason: per Hypoglycemia Standing Ord. Insulin Glargine (Insulin Glargine,Hum.Rec.Anlog 100 Unit/Ml 10 Ml Vial) 36 unit SUBCUT DAILY@0900 [facility] Last Admin: 06/15/24 08:40 Dose: 36 unit Documented By: NAPOLEON Insulin Human Lispro (Insulin Lispro 100 Unit/Ml 3 Ml Vial) 0 unit SUBCUT QIDACHS [facility]; Protocol Last Admin: 06/15/24 08:40 Dose: 2 unit Documented By: NAPOLEON Magnesium Hydroxide (Milk Of Magnesia 30 Ml Oral.Susp) 30 ml PO DAILY PRN PRN Reason: Constipation Melatonin (Melatonin 3 Mg Tablet) 6 mg PO BEDTIME PRN PRN Reason: Insomnia Last Admin: 06/15/24 00:18 Dose: 6 mg Documented By: MARLYN Metoprolol Tartrate (Metoprolol Tartrate 50 Mg Tablet) 50 mg PO BID [facility]; Protocol Last Admin: 06/15/24 08:41 Dose: 50 mg Documented By: NAPOLEON Pantoprazole Sodium (Pantoprazole Sodium 40 Mg/10 Ml Vial) 40 mg IVPUSH BID@0630,1630 [facility] Last Admin: 06/15/24 05:41 Dose: 40 mg Documented By: MARLYN Sodium Chloride (0.9 % Sodium Chloride Flush 3 Ml Syringe) 3 ml IVFLUSH QSHIFT [facility] Last Admin: 06/14/24 21:05 Dose: 3 ml Documented By: MARLYN Valsartan (Valsartan 160 Mg Tablet) 160 mg PO DAILY@0900 [facility]; Protocol Last Admin: 06/15/24 08:41 Dose: 160 mg Documented By: NAPOLEON Warfarin Sodium (Warfarin Sodium 4 Mg Tablet) 4 mg PO DAILY@1800 [facility] Last Admin: 06/14/24 18:29 Dose: 4 mg Documented By: CHRIS Labs 06/15/24 07:20 06/15/24 07:20 Labs: Laboratory Results - last 24 hr 06/14/24 06/14/24 06/14/24 11:26 16:52 20:50 MCV MCH MCHC RDW Plt Count MPV Absolute Nucleated RBC Nucleated RBC % (auto) PT INR Anion Gap Estim Creat Clear Calc Estimated GFR POC Glucose 247 H 324 H 294 H Random Glucose Calcium 06/15/24 06/15/24 07:20 07:58 MCV 84.2 MCH 26.7 L MCHC 31.7 RDW 15.0 Plt Count 272 MPV 10.5 Absolute Nucleated RBC 0.000 Nucleated RBC % (auto) 0.0 PT 26.5 H INR 2.3 H Anion Gap 12 Estim Creat Clear Calc 41.1 Estimated GFR 52 POC Glucose 180 H Random Glucose 199 H Calcium 8.5 D Microbiology Microbiology Results: Microbiology 06/12/24 03:38 Blood Culture - Preliminary Blood - Venous No growth after 48 hours. 06/12/24 03:37 Blood Culture - Preliminary Blood - Venous No growth after 48 hours. Assessment and Plan (1) Hypertension: Status: Acute Plan 78F PMH mechanical AVR on coumadin, DM, htn, breast cancer, osteoarthritis, presented with shortness of breath Acute hypoxic respiratory failure due to viral sepsis due to COVID and acute on chronic diastolic CHF IV Decadron, wean O2 as tolerated, DuoNebs change to po lasix, check cxr echo with normal EF mod to severe of bioavr, diastolic dysfunction Acute blood loss anemia IV ppi, GI appreciated, nonemergent EGD/colonoscopy Monitor hemoglobin, given 1 unit PRBC in ED hgb improved appropriately Mechanical AVR with supra therapeutic INR inr now therapeutic restarted Diabetes Insulin sliding scale Hypertension amlodipine, valsartan, metoprolol DVT prophylaxis-on Coumadin Full code reason for continued hospitalization:hypoxic Quality Stroke Does the patient have a stroke diagnosis?: No VTE Prior VTE?: No VTE Risk Level:: Medical - moderate - high VTE Device Contraindication: Treatment Not Indicated VTE Drug Contraindication: N/A - Med Ordered
[2024-06-15 11:26] LABS: Glucose, Whole Blood 291 mg/dL (60-115)
[2024-06-15] MEDS: Doxycycline Monohydrate 100 MG CAPSULE PO ×2 (12:08→23:01)
[2024-06-15] MEDS: 0.9 % Sodium Chloride Flush 3 ML SYRINGE IVFLUSH ×3 (12:09→20:53)
[2024-06-15 16:50] LABS: Glucose, Whole Blood 271 mg/dL (60-115)
[2024-06-15] MEDS: Warfarin Sodium 4 MG TABLET PO (18:58)
[2024-06-15 20:49] LABS: Glucose, Whole Blood 250 mg/dL (60-115)
[2024-06-16] VITALS: BP 145/69; PULSE 66; RESP 20; TEMP 36.4; O2SAT 92
[2024-06-16 04:00] VITALS: BP 158/74; PULSE 66; RESP 20; TEMP 36.3; O2SAT 92
[2024-06-16 07:10] LABS: Hematocrit 33.4 % (37.0-47.0); Hemoglobin 10.7 g/dl (12.0-16.0); Mean Corpuscular Hemoglobin 26.8 pg (27.0-33.0); Mean Corpuscular Volume 83.5 fL (80.0-98.0); Mean Platelet Volume 10.6 fL (9.4-12.3); Platelet Count 287 X10*3/uL (160-400); Red Cell Distribution Width 14.7 % (11.0-16.0); White Blood Count 8.8 X10*3/uL (4.8-10.8)
[2024-06-16 07:22] LABS: Anion Gap 14 (12-20); Blood Urea Nitrogen 36 mg/dL (9-16); Calcium 8.9 mg/dL (8.4-10.2); Carbon Dioxide 30 mmol/L (22-29); Chloride 101 mmol/L (96-108); Creatinine Clr Calc Pharmacy 45.6; Estimated Glomerular Filt Rate 58; Glucose Random 148 mg/dL (60-115); Potassium 3.7 mmol/L (3.3-5.1); Sodium 141 mmol/L (135-145)
[2024-06-16 07:28] LABS: INTERNATIONAL NORM RATIO 2.2 (0.9-1.1); Prothrombin Time 26.1 SEC (10.9-12.4)
[2024-06-16 07:30] LABS: Glucose, Whole Blood 128 mg/dL (60-115)
[2024-06-16 07:57] VITALS: BP 174/77; PULSE 64; RESP 17; TEMP 36.2; O2SAT 93
[2024-06-16] MEDS: Valsartan 160 MG TABLET PO (08:29)
[2024-06-16] MEDS: Furosemide 40 MG TABLET PO (08:30)
[2024-06-16] MEDS: Atorvastatin Calcium 40 MG TABLET PO (08:30)
[2024-06-16] MEDS: Metoprolol Tartrate 50 MG TABLET PO (08:30)
[2024-06-16] MEDS: amLODIPine Besylate 10 MG TABLET PO (08:30)
[2024-06-16] MEDS: Benzonatate 100 MG CAPSULE 200 MG PO (08:30)
[2024-06-16] MEDS: Insulin Glargine,Hum.rec.anlog 100 UNIT/ML 10 ML VIAL 36 UNIT SUBCUT (08:31)
[2024-06-16] MEDS: dexAMETHasone sod phosphate 4 MG/ML VIAL 6 MG IVPUSH (08:31)
[2024-06-16] MEDS: 0.9 % Sodium Chloride Flush 3 ML SYRINGE IVFLUSH (08:41)
--- NOTE | 2024-06-16 09:41 | PM.DS ---
DS: Providers Provider Date of Service: 06/16/24 Date of admission: 06/12/24 08:09 Date of discharge: 06/16/24 Primary care physician: Paco Schuler MD Consults: 06/12/24 08:07 Consult to Gastroenterology Routine Consulting Provider: Romero Royal Reason for consultation: anemia, dark stools, on coumadin DS: Diagnosis Discharge Diagnosis (1) Hypertension: Status: Acute DS: Summary Hospital Course Hospital Course: from initial hpi: 78F PMH mechanical AVR on coumadin, DM, htn, breast cancer, osteoarthritis, presented with shortness of breath. Patient states that symptoms began about 1 week prior to presentation. Worse on exertion, positive orthopnea. Denies any increased swelling. Denies fever or chills. Does have sick contact with COVID. Denies chest pain, nausea vomiting, diarrhea. In ED found to be hypoxic, COVID positive, chest x-ray with mild interstitial prominence, elevated BNP, hemoglobin 8.4, INR 4.8 with positive stool occult blood. Patient does note some dark stools recently. hospital course: Patient was admitted for acute hypoxic respiratory failure due to viral sepsis due to COVID and acute on chronic diastolic CHF. Was treated with IV Decadron, DuoNebs, IV Lasix. Patient's symptoms resolved. Was weaned off oxygen. Will be started on maintenance Lasix 40 mg daily. 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 Repeat chest x-ray after diuresis showed resolution of opacities more consistent with pulmonary edema. For acute blood loss anemia received 1 unit of PRBCs and hemoglobin improved appropriately. Was seen by Gastroenterology recommended nonemergent EGD and colonoscopy as outpatient. For mechanical aortic valve replacement with supratherapeutic INR Coumadin was held until in therapeutic range and restarted. For diabetes was continued on insulin sliding scale. For hypertension was continued on amlodipine, valsartan, metoprolol. Patient is feeling better will be discharged home on 5 more days of prednisone and doxycycline. Time Attestation Discharge Coordination Time (in mins): 34 Quality: Safe Use of Opioids Does Pt have an Active Cancer Diagnosis on the Problem List?: No Quality: Stroke Does the patient have a stroke diagnosis?: No Physical Exam Vital Signs: Vital Signs: Last Vital Signs Temp 97.2 F 06/16/24 07:57 Pulse 64 06/16/24 07:57 Resp 17 06/16/24 07:57 BP 174/77 H 06/16/24 07:57 Pulse Ox 93 06/16/24 07:57 O2 Del Method Nasal Cannula 06/16/24 07:57 O2 Flow Rate 1 06/16/24 07:57 BMI result Body Mass Index 32.9 General: AO X 3, no acute distress Resp: CTA bilateral, no accessory muscles used CVS: S1,S2,RRR GI: soft, non tender, non distended Neuro: motor grossly intact, alert Psych: appropriate affect, appropriate insight DS: Data Data Completed and Pending Labs on day of discharge: Laboratory Results - last 24 hr 06/15/24 06/15/24 06/15/24 10:50 16:43 20:42 WBC RBC Hgb Hct MCV MCH MCHC RDW Plt Count MPV Absolute Nucleated RBC Nucleated RBC % (auto) PT INR Sodium Potassium Chloride Carbon Dioxide Anion Gap BUN Creatinine Estim Creat Clear Calc Estimated GFR POC Glucose 291 H 271 H 250 H Random Glucose Calcium 06/16/24 06/16/24 06:40 07:13 WBC 8.8 RBC 4.00 L Hgb 10.7 L Hct 33.4 L MCV 83.5 MCH 26.8 L MCHC 32.0 RDW 14.7 Plt Count 287 MPV 10.6 Absolute Nucleated RBC 0.000 Nucleated RBC % (auto) 0.0 PT 26.1 H INR 2.2 H Sodium 141 Potassium 3.7 Chloride 101 Carbon Dioxide 30 H Anion Gap 14 BUN 36 H Creatinine 0.93 Estim Creat Clear Calc 45.6 Estimated GFR 58 POC Glucose 128 H Random Glucose 148 H Calcium 8.9 Preliminary micro results at discharge 06/12/24 03:38 Blood Culture - Preliminary Blood - Venous No growth after 48 hours. 06/12/24 03:37 Blood Culture - Preliminary Blood - Venous No growth after 48 hours. Discharge Plan Discharge Anticipated Discharge Date/Time: 06/16/24 09:39 Patient Disposition: Home Health Service Discharge Diagnosis: anemia, covid, chf Referrals: Raven Royal MD [Physician] - 1 Week Paco Schuler MD [Primary Care Provider] - 1 Week Discharge Medications: New furosemide 40 mg Tablet 40 mg PO DAILY Qty: 90 0RF Protocol: Hold for SBP< HOLD for SBP < : 90 doxycycline monohydrate 100 mg Capsule 100 mg PO Q12H Qty: 10 0RF prednisone 20 mg tablet 40 mg PO DAILY Qty: 10 0RF albuterol sulfate 90 mcg/actuation aerosol powdr breath activated 2 inh inhalation Q6H PRN (Reason: shortness of breath) Qty: 1 0RF Continued atorvastatin 40 mg tablet 40 mg PO DAILY@0900 benzonatate 200 mg capsule 200 mg PO TID metformin 850 mg tablet 850 mg PO DAILY@2100 amlodipine 10 mg tablet 10 mg PO DAILY@0900 metoprolol tartrate 50 mg tablet 50 mg PO BID pioglitazone 30 mg tablet 30 mg PO DAILY@0900 fluticasone propionate 50 mcg/actuation spray,suspension 1 spray INTRANASAL BID PRN (Reason: Allergy Symptoms) valsartan 160 mg tablet 160 mg PO DAILY@0900 insulin glargine [Lantus Solostar U-100 Insulin] 100 unit/mL (3 mL) insulin pen 36 unit subcut DAILY@0900 warfarin 5 mg Tablet 7.5 mg PO DAILY@1700 Rx Instructions: in the evening Discharge Orders: Discharge Order (Routine); Ordered 06/16/24 Ordered By: Delon Mcclendon Diet: Advance to usual diet Activity on Discharge: As tolerated Stand Alone Forms: Patient Portal Discharge page Print Language: Vietnamese Care Plan Goals: recovery Health Concerns: covid, chf, anemia Plan of Treatment: Five more days of doxycycline prednisone, follow up with GI, follow up with Cardiology started on maintenance Lasix 40 mg daily Assessment: see above Discharge Date/Time: 06/16/24 12:35
--- NOTE | 2024-06-16 09:51 | MHC.CM.PN ---
Addendum entered by Rosa Maria Ann RN 06/16/24 14:05: pt's dtr Violeta [phone] notified of services and will be personal trainer. Addendum entered by Rosa Maria Ann RN 06/16/24 14:02: [facility] to provide sn/home pt for pt. Addendum entered by Rosa Maria Ann RN 06/16/24 11:35: PT PENDING Original Note: PT MEICALLY CLEARED FOR DC HOME SELF-CARE, PT'S FAMILY FOR TRANSPORT.
[2024-06-16] MEDS: Doxycycline Monohydrate 100 MG CAPSULE PO (11:27)
[2024-06-16 12:13] VITALS: BP 174/77; PULSE 64; O2SAT 93
--- NOTE | 2024-06-16 13:18 | W.MHC.F2F ---
Service Date Service Date: 06/16/24 Encounter Date of encounter: 06/16/24 Reasons for Services Signs and symptoms assessed: weakness Reason for chcf: medication management, medication treatment and teach disease management Reason for physical therapy: home safety and mobility and therapeutic exercises Homebound: Leaving the home is medically contraindicated at this time without the asist of a device and/or another person due th the listed conditions above and below. Reason homebound: unsteady gait / fall risk Certification: Based on the above findings, I certify that this patient is confined to the home and needs intermittent chcf care, physical therapy and/or speech therapy, or continues to need occupational therapy. The patient is under my care, and I have initiated the establishment of the plan of care. The patient will be followed by a physician who will periodically review the plan of care. Time Spent With Patient Time: Total time managing care of this patient today ____ minutes.
== END 2024-06-16 12:35 | disposition home health service (06) | DRG 871 ==
LOC: HO.ED 05:01 → HO.EDOVER 08:12 → HO.IMC 06-13 11:50
PROVIDERS: Admitting Provider Internal Medicine; Emergency Provider Emergency Medicine; PCP Internal Medicine; Visit Provider Internal Medicine
DX: A41.89 Other specified sepsis (principal); I50.33 Acute on chronic diastolic (congestive) heart failure; J96.01 Acute respiratory failure with hypoxia; U07.1 COVID-19; D62 Acute posthemorrhagic anemia; R19.5 Other fecal abnormalities; E11.9 Type 2 diabetes mellitus without complications; I11.0 Hypertensive heart disease with heart failure; Z95.2 Presence of prosthetic heart valve; R79.1 Abnormal coagulation profile; Z79.4 Long term (current) use of insulin; Z79.84 Long term (current) use of oral hypoglycemic drugs; Z79.899 Other long term (current) drug therapy
CPT/HCPCS: 0241U; 36415; 71045; 80048; 80053; 81001; 82272; 82728; 82947; 83540; 83605; 83735; 83880; 84484; 85025; 85027; 85610; 85730; 86850; 86900; 86901; 86923; 87040; 93005; 93306; 97162; 99285; J1100; J1940; J2470; P9016; Q9957

== ENCOUNTER → 2024-06-12 02:43 | Outpatient (BNV) | payer MEDICARE, SELFPAY | PROVIDERS: Admitting Provider Internal Medicine; Emergency Provider Emergency Medicine; PCP Internal Medicine; Visit Provider Internal Medicine Cardiovascular Disease | DX: R94.31 Abnormal electrocardiogram [ECG] [EKG] (principal) | CPT/HCPCS: 93010 ==

== ENCOUNTER → 2024-06-12 03:55 | Outpatient (BNV) | payer MEDICARE, SELFPAY | PROVIDERS: Emergency Provider Emergency Medicine; PCP Internal Medicine; Visit Provider Radiology Diagnostic Radiology | DX: R05.9 Cough, unspecified (principal) | CPT/HCPCS: 71045 ==

== ENCOUNTER 2024-06-12 08:09 | Outpatient (BNV) | payer MEDICARE, SELFPAY | END 2024-06-14 07:00 | PROVIDERS: Admitting Provider Internal Medicine; Emergency Provider Emergency Medicine; PCP Internal Medicine; Visit Provider Internal Medicine Cardiovascular Disease | DX: T82.857A Stenosis of other cardiac prosthetic devices, implants and grafts, initial encounter (principal); I51.7 Cardiomegaly; I34.2 Nonrheumatic mitral (valve) stenosis; I34.0 Nonrheumatic mitral (valve) insufficiency | CPT/HCPCS: 93306 ==

== ENCOUNTER 2024-06-12 08:09 | Outpatient (BNV) | payer MEDICARE, SELFPAY | END 2024-06-15 09:50 | PROVIDERS: Admitting Provider Internal Medicine; Emergency Provider Emergency Medicine; PCP Internal Medicine; Visit Provider Radiology Diagnostic Radiology | DX: R09.02 Hypoxemia (principal) | CPT/HCPCS: 71045 ==

== ENCOUNTER → 2024-06-12 08:09 | Outpatient (BNV) | payer MEDICARE, SELFPAY | PROVIDERS: Admitting Provider Internal Medicine; Emergency Provider Emergency Medicine; PCP Internal Medicine; Visit Provider Internal Medicine | DX: I10 Essential (primary) hypertension (principal) | CPT/HCPCS: 99232; 99233; 99239; G0180 ==

== ENCOUNTER → 2024-06-12 08:09 | Outpatient (BNV) | payer MEDICARE, SELFPAY | PROVIDERS: Admitting Provider Internal Medicine; Emergency Provider Emergency Medicine; PCP Internal Medicine; Visit Provider Internal Medicine Gastroenterology | DX: R19.5 Other fecal abnormalities (principal) | CPT/HCPCS: 99223 ==

== ENCOUNTER 2024-07-15 14:25 | Inpatient (IN) | payer MEDICARE, SELFPAY ==
--- NOTE | 2024-07-15 15:14 | ED_ITS ---
HPI - General Adult General Chief complaint: GI Bleed Stated complaint: blood in stools Time Seen by Provider: 07/15/24 23:12 Source: patient Mode of arrival: ambulatory Limitations: language barrier (Patient's 1st language is Estonian, she does speak and understand Croatian, patient's daughter in-law was here and gave information as well) History of Present Illness ED Provider: Dr. Henok Kowalski HPI narrative: 78-year-old female with a history of mechanical AVR on coumadin, diabetes mellitus, hypertension, breast cancer, osteoarthritis who presents emergency department for evaluation of dark black stools with no clots since 07/10/2024 (6 days). Patient states that she was also been feeling weak and dizzy. Patient had a similar presentation and was admitted from 06/12/2024 until 06/16/2024. At that time she was found to have a drop in her hemoglobin to 8.4 with an INR 4.8 with positive occult stool. Patient was transfused with 1 unit of packed red blood cells. Patient's admission also was complicated by COVID pneumonia with CHF and acute hypoxia she was treated with Decadron nebs and Lasix. 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 Patient had a GI consult which recommended outpatient follow-up which according to the patient's [id number] they have not been able to schedule since nonemergent GI appointments or at least 6 months out. She denied fever, chills, nausea, vomiting. She denied chest pain, shortness of breath or dyspnea on exertion. Related Data Home Medications ?Medication ?Instructions ?Recorded ?Confirmed amlodipine 10 mg tablet 10 mg PO DAILY@89906/12/24 06/12/24 atorvastatin 40 mg tablet 40 mg PO DAILY@89906/12/24 06/12/24 benzonatate 200 mg capsule 200 mg PO TID 06/12/24 06/12/24 fluticasone propionate 50 1 spray intranasal BID PRN Allergy 06/12/24 06/12/24 mcg/actuation nasal Symptoms spray,suspension insulin glargine 100 unit/mL (3 36 unit subcut DAILY@89906/12/24 06/12/24 mL) subcutaneous pen (Lantus Solostar U-100 Insulin) metformin 850 mg tablet 850 mg PO DAILY@2100 06/12/24 06/12/24 metoprolol tartrate 50 mg tablet 50 mg PO BID 06/12/24 06/12/24 pioglitazone 30 mg tablet 30 mg PO DAILY@0906/12/24 06/12/24 valsartan 160 mg tablet 160 mg PO DAILY@0906/12/24 06/12/24 warfarin 5 mg tablet 7.5 mg PO DAILY@1700 06/12/24 Previous Rx's ?Medication ?Instructions ?Recorded albuterol sulfate 90 mcg/actuation 2 inh inhalation Q6H PRN shortness 06/16/24 breath activated powder inhaler of breath #1 ea doxycycline monohydrate 100 mg 100 mg PO Q12H #10 caps 06/16/24 capsule furosemide 40 mg tablet 40 mg PO DAILY #90 tabs 06/16/24 prednisone 20 mg tablet 40 mg (2 x 20 mg) PO DAILY #10 tabs 06/16/24 Allergies Allergy/AdvReac Type Severity Reaction Status Date / Time No Known Allergies Allergy Verified 07/15/24 15:18 Review of Systems 2 Review of Systems: Yes all other systems are reviewed and are negative [facility] Past Medical History Medical History Breast cancer Diabetes Anticoagulated on Coumadin Hypertension Surgical History Heart valve replaced Social History Social History Household Members: Family Housing: House Do you presently have visiting nurse or other home services: No Alcohol intake: never Patient Tobacco Use Status: Never used Tobacco Smoked in Last 30 Days: No Use of substances other than those prescribed or required for medical reasons: No Advance Directives: No Advance Directives Information Provided: No Do you have a plan to hurt others: No Plan service: No Physical Exam ED Vital Signs: Vital Signs - 24 hr 07/15/24 15:15 07/15/24 22:37 07/16/24 00:23 Temperature 97.0 F 98.2 F 98.1 F Pulse Rate 80 99 92 Respiratory Rate 18 16 20 Blood Pressure 135/78 193/80 H 175/66 H Pulse Oximetry 99 96 92 Oxygen Delivery Method Room Air Room Air Room Air BMI result Body Mass Index 33.3 Vital signs revealed elevated blood pressures otherwise unremarkable. Exam: General: Awake, alert in no distress Head: Normocephalic, atraumatic EENT: PERRL, Lids normal, sclera normal, conjunctiva normal, nose normal , ears normal, throat without erythema or exudates Neck: Supple, no adenopathy Lung: breath sounds symmetric, no wheezing, rales or rhonchi Chest: symmetric movement, nontender Heart: regular rate and rhythm, normal S1, S2 , 3/6 systolic murmur best heard at the left lower sternal border, 2/6 systolic murmur best heard at the right lower sternal border Abdomen: soft, non-tender, nondistended, normal bowel sounds Rectal exam : No external hemorrhoids, normal sphincter tone, no masses on digital exam, stool was brown, nonbloody Back: no vertebral tenderness, no CVAT Extremities: no deformities, moves all extremities symmetrically Neuro: Awake, alert, oriented, normal speech, cranial nerves intact, moves all extremities symmetrically Psych: Pleasant, cooperative Course Course Course Narrative: This is a rapid medical exam performed by Claire Griffith NP: Additional HPI, ROS, PE not included below will be deferred to primary provider. Patient is a 78-year-old female with history of DM, HTN, heart valve replacement on warfarin presenting with complaint of dizziness, weakness, melena. Recently inpatient for Covid on 06/12, required transfusion at that visit. Plan: labs Medications Administered Discontinued Medications Generic Name Dose Route Start Last Admin Trade Name Freq PRN Reason Stop Dose Admin Pantoprazole Sodium 40 mg 07/16/24 00:03 07/16/24 00:20 Pantoprazole Sodium 40 Mg/10 Ml Vial IVPUSH 07/16/24 00:04 40 mg ONCE ONE Administration Medical Decision Making Medical Decision Making [facility] Narrative: 78-year-old female with a history of mechanical AVR on coumadin, diabetes mellitus, hypertension, breast cancer, osteoarthritis who presents emergency department for evaluation of dark black stools with no clots since 07/10/2024 (6 days). Patient states that she was also been feeling weak and dizzy. Patient was admitted 06/12/2024 for black stools, low hemoglobin he was transfused 1 unit, she was studies were delayed since she had COVID 19 pneumonia at that time. Vital signs revealed elevated blood pressures otherwise unremarkable. Patient had no abdominal tenderness. Stool was brown with no blood. Differential diagnosis: ?Includes but is not limited to upper GI bleed, anemia, viral syndrome, electrolyte abnormalities Course: My interpretation patient's laboratory evaluation is as follows: H&H was low at 8.1 and 27. On initial presentation for GI bleed on 06/12/2024 her H&H was 8.4 and 26. After transfusion her discharge H&H on 06/16/2024 was 10.7 and 33.4. Today's H&H does represent a significant drop. Patient's BUN is slightly elevated at 20 with a normal creatinine of 1.0. Glucose was elevated 348. INR was therapeutic at 2.1. PTT was elevated 39.3. Who will Hemoccult was negative. Given the significant drop in her H&H from her baseline I did order 1 unit of PRBCs to be transfused. Repeat H&H at 00:07 hours was 8.5 and 27.6 which did not drop significantly from her earlier H&H at 15:27 hours, however given her dark stools, change in her H&H from her previous baseline, I believe the patient should be admitted to trend her H&H and possibly for GI workup. Patient was given Protonix 40 mg IV. I did discuss the patient's presentation over tiger text with the covering hospitalist, Dr. Ferreira. Lab Data 07/16/24 00:07 07/15/24 15:27 Labs: Lab Results 07/15/24 07/15/24 07/16/24 Range/Units 15:27 22:57 00:01 WBC 5.8 (4.8-10.8) X10*3/uL RBC 3.11 L D (4.20-5.50) X10*6/uL Hgb 8.1 L D (12.0-16.0) g/dl Hct 27.0 L (37.0-47.0) % MCV 86.8 (80.0-98.0) fL MCH 26.0 L (27.0-33.0) pg MCHC 30.0 L (31.0-35.0) g/dl RDW 16.7 H (11.0-16.0) % Plt Count 259 (160-400) X10*3/uL MPV 9.4 (9.4-12.3) fL Immature Gran % (Auto) 0.5 H (0.0-0.4) % Neut % (Auto) 60.0 (45-73) % Lymph % (Auto) 24.5 (20-40) % [place] % (Auto) 11.4 H (2-11) % Eos % (Auto) 2.9 (0-4) % Baso % (Auto) 0.7 (0-2) % Lymph # (Auto) 1.4 (1.2-4.9) X10*3/uL [place] # (Auto) 0.7 (0.1-1.2) X10*3/uL Eos # (Auto) 0.2 (0.0-0.4) X10*3/uL Baso # (Auto) 0.0 (0.0-0.2) X10*3/uL Abs Immat Gran (auto) 0.03 (0.00-0.03) X10*3/uL Absolute Neuts (auto) 3.5 (2.0-8.3) x10*3/uL Absolute Nucleated RBC 0.000 (0.0-0.012) X10*3/uL Nucleated RBC % (auto) 0.0 (0.0-0.2) /100WBC PT 24.2 H (10.9-12.4) SEC INR 2.1 H (0.9-1.1) APTT 39.3 H D (26.0-36.8) SEC Sodium 143 (135-145) mmol/L Potassium 4.3 (3.3-5.1) mmol/L Chloride 113 H (96-108) mmol/L Carbon Dioxide 24 (22-29) mmol/L Anion Gap 10 L (12-20) BUN 20 H (9-16) mg/dL Creatinine 1.01 (0.5-1.4) mg/dL Estim Creat Clear Calc 40.4 Estimated GFR 53 Random Glucose 348 H (60-115) mg/dL Calcium 8.8 (8.4-10.2) mg/dL Total Bilirubin 0.2 (0.0-1.0) mg/dL AST 25 (5-31) U/L ALT 16 (0-31) U/L Alkaline Phosphatase 102 (39-117) U/L Total Protein 6.9 (6.5-8.0) g/dL Albumin 3.7 (3.5-5.0) g/dL Stool Occult Blood NEGATIVE (NEGATIVE) Blood Type O Positive Antibody Screen NEGATIVE Crossmatch See Detail 07/16/24 Range/Units 00:07 WBC (4.8-10.8) X10*3/uL RBC (4.20-5.50) X10*6/uL Hgb 8.5 L (12.0-16.0) g/dl Hct 27.6 L (37.0-47.0) % MCV (80.0-98.0) fL MCH (27.0-33.0) pg MCHC (31.0-35.0) g/dl RDW (11.0-16.0) % Plt Count (160-400) X10*3/uL MPV (9.4-12.3) fL Immature Gran % (Auto) (0.0-0.4) % Neut % (Auto) (45-73) % Lymph % (Auto) (20-40) % [place] % (Auto) (2-11) % Eos % (Auto) (0-4) % Baso % (Auto) (0-2) % Lymph # (Auto) (1.2-4.9) X10*3/uL [place] # (Auto) (0.1-1.2) X10*3/uL Eos # (Auto) (0.0-0.4) X10*3/uL Baso # (Auto) (0.0-0.2) X10*3/uL Abs Immat Gran (auto) (0.00-0.03) X10*3/uL Absolute Neuts (auto) (2.0-8.3) x10*3/uL Absolute Nucleated RBC (0.0-0.012) X10*3/uL Nucleated RBC % (auto) (0.0-0.2) /100WBC PT (10.9-12.4) SEC INR (0.9-1.1) APTT (26.0-36.8) SEC Sodium (135-145) mmol/L Potassium (3.3-5.1) mmol/L Chloride (96-108) mmol/L Carbon Dioxide (22-29) mmol/L Anion Gap (12-20) BUN (9-16) mg/dL Creatinine (0.5-1.4) mg/dL Estim Creat Clear Calc Estimated GFR Random Glucose (60-115) mg/dL Calcium (8.4-10.2) mg/dL Total Bilirubin (0.0-1.0) mg/dL AST (5-31) U/L ALT (0-31) U/L Alkaline Phosphatase (39-117) U/L Total Protein (6.5-8.0) g/dL Albumin (3.5-5.0) g/dL Stool Occult Blood (NEGATIVE) Blood Type Antibody Screen Crossmatch Critical Care Time Critical Care Time Critical Care Time: Yes Total Critical Care Time: 35 Attestation: Critical Care: The patient was critically ill with a high probability of imminent or life threatening deterioration. I spent greater than 30 minutes of discontinuous time evaluating the patient,delivering critical care at the bedside, discussing and evaluating pertinent data with consultants. Critical care time does not include time spent performing separately billable procedures or teaching. Total time spent performing critical care was 35 minutes. Discharge Plan Discharge Clinical Impression: Acute upper GI bleed, Anemia, On warfarin therapy Prescriptions: No Action atorvastatin 40 mg tablet 40 mg PO DAILY@0900 benzonatate 200 mg capsule 200 mg PO TID metformin 850 mg tablet 850 mg PO DAILY@2100 amlodipine 10 mg tablet 10 mg PO DAILY@0900 metoprolol tartrate 50 mg tablet 50 mg PO BID pioglitazone 30 mg tablet 30 mg PO DAILY@0900 fluticasone propionate 50 mcg/actuation spray,suspension 1 spray INTRANASAL BID PRN (Reason: Allergy Symptoms) valsartan 160 mg tablet 160 mg PO DAILY@0900 insulin glargine [Lantus Solostar U-100 Insulin] 100 unit/mL (3 mL) insulin pen 36 unit subcut DAILY@0900 warfarin 5 mg Tablet 7.5 mg PO DAILY@1700 Rx Instructions: in the evening furosemide 40 mg Tablet 40 mg PO DAILY Qty: 90 0RF Protocol: Hold for SBP< HOLD for SBP < : 90 doxycycline monohydrate 100 mg Capsule 100 mg PO Q12H Qty: 10 0RF prednisone 20 mg tablet 40 mg PO DAILY Qty: 10 0RF albuterol sulfate 90 mcg/actuation aerosol powdr breath activated 2 inh inhalation Q6H PRN (Reason: shortness of breath) Qty: 1 0RF Print Language: Estonian
[2024-07-15 15:15] VITALS: BP 135/78; PULSE 80; RESP 18; TEMP 36.1; O2SAT 99; BMI 33.3
--- NOTE | 2024-07-15 15:17 | ECG_ITS ---
Test Reason : DIZZINESS Blood Pressure : */* mmHG Vent. Rate : 90 BPM Atrial Rate : 90 BPM P-R Int : 218 ms QRS Dur : 140 ms QT Int : 424 ms P-R-T Axes : 59 38 75 degrees QTcB Int : 518 ms Sinus rhythm with 1st degree A-V block Non-specific intra-ventricular conduction block Nonspecific T wave abnormality Abnormal ECG When compared with ECG of 12-Jun-2024 02:57, No significant changes seen Referred By: Danita Griffith Electronically Signed By: DANIEL COOK
[2024-07-15 15:30] LABS: MANUAL DIFF FLAG NO
[2024-07-15 15:31] LABS: Basophils Percent Auto 0.7 % (0-2); Eosinophils Absolute Auto 0.2 X10*3/uL (0.0-0.4); Eosinophils Percent Auto 2.9 % (0-4); Hemoglobin 8.1 g/dl (12.0-16.0); Imm Gran Abs Auto 0.03 X10*3/uL (0.00-0.03); Imm Gran Pct Auto 0.5 % (0.0-0.4); Lymphocytes Absolute Auto 1.4 X10*3/uL (1.2-4.9); Lymphocytes Percent Auto 24.5 % (20-40); Mean Corpuscular Volume 86.8 fL (80.0-98.0); Mean Platelet Volume 9.4 fL (9.4-12.3); Monocytes Absolute Auto 0.7 X10*3/uL (0.1-1.2); Monocytes Percent Auto 11.4 % (2-11); Neutrophils Absolute Auto 3.5 x10*3/uL (2.0-8.3); Platelet Count 259 X10*3/uL (160-400); Red Blood Count 3.11 X10*6/uL (4.20-5.50); Red Cell Distribution Width 16.7 % (11.0-16.0); White Blood Count 5.8 X10*3/uL (4.8-10.8)
[2024-07-15 15:45] LABS: INTERNATIONAL NORM RATIO 2.1 (0.9-1.1); Prothrombin Time 24.2 SEC (10.9-12.4)
[2024-07-15 15:48] LABS: Partial Thromboplastin Time 39.3 SEC (26.0-36.8)
[2024-07-15 15:54] LABS: Alanine Aminotransferase 16 U/L (0-31); Albumin Level 3.7 g/dL (3.5-5.0); Anion Gap 10 (12-20); Aspartate Amino Transferase 25 U/L (5-31); Bilirubin Total 0.2 mg/dL (0.0-1.0); Blood Urea Nitrogen 20 mg/dL (9-16); Calcium 8.8 mg/dL (8.4-10.2); Carbon Dioxide 24 mmol/L (22-29); Chloride 113 mmol/L (96-108); Creatinine Clr Calc Pharmacy 40.4; Estimated Glomerular Filt Rate 53; Glucose Random 348 mg/dL (60-115); Potassium 4.3 mmol/L (3.3-5.1); Sodium 143 mmol/L (135-145); Total Protein 6.9 g/dL (6.5-8.0)
--- OUTSIDE RECORDS SUMMARY | 2024-07-15 16:32 | XMS_ITS | Encounter Summary ---
Author Organization [facility] Address [address] [place] [address] Care Team Providers Care Concrete Curer Name Role Phone Paco Schuler MD Primary Care Provider [phone] Reason for Visit * Reason Onset Date Comments ROCT - 12948 (Ok to Book) 07/06/2024 ROCT Enrollment 07/06/2024 Enrolling kimberly t for 30 day ROCT Encounter Details Date Type Department Care Team (Late st Contact Info) Description 07/06/2024 Telephone [facility] [address] [place] [address] Dilip Dykes MD [address] [place] [address] [address] [place], [place] [id number] ROCT - [id number] (Ok to Book); ROCT Enrollment (Enrolling patient for 30 day ROCT) Social History Tobacco Use Types Packs/Day Years Used Date Smoking Tobacco: Never Smokeless Tobacco: Never Alcohol Use Standard Drinks/Week Comments No 0 (1 standard drink = 0.6 oz pur e alcohol) Comments Unknown Sex and Gender Information Value Date Recorded Sex Assigned at Not on file Legal Sex Female 1:03 AM EST Gender Identity Not on file Sexual Orientation Not on file documented as of this encounter Progress Notes * Akbar Chacon MA - 07/07/2024 9:59 AM EST 07/07/24- Enrolling patient for 30 day ROCT ordered by Nilsa Dx: Syncope I called and left a detailed message letting patient know [facility] [employer] will be reaching out to set up home delivery. * Akbar Chacon MA - 07/06/2024 9:29 AM EST Tentative Date: to be enrolled for 30 day ROCT ordered by Dx: Syncope * Karol Moreno - 07/06/2024 7:58 AM EST Prior Auth Status: NO Auth Req per [facility] Insurance Referral: N/A CPT: 72771 - ROCT DX: R55 Duration: 30 Days [place]: Donis SANTANA to BOOK documented in this encounter Plan of Treatment Upcoming Encounters Date Type Department Care Team (Late st Contact Info) Description 08/30/2024 2:10 PM EDT Office Visit [facility] [address] [place] [address] Madeleine Bass NP [address] [place] [address] [address] [place] [address] documented as of this encounter Visit Diagnoses Not on filedocumented in this encounter Care Teams Concrete Curer Relationship Specialty Start Date End Date Paco Schuler MD [address] [place] [phone] PCP - General Internal Medicine 04/28/20 documented as of this encounter
--- OUTSIDE RECORDS SUMMARY | 2024-07-15 16:32 | XMS_ITS | Encounter Summary ---
Author Organization [facility] Address [address] [place] [address] Care Team Providers Care Powder Core Tester Name Role Phone Paco Schuler MD Primary Care Provider [phone] Reason for Referral * Cardiac Stress Testing (Routine) - Closed Specialty Diagnoses / Procedures Referred By Esperanza anglin Referred To Contact Cardiology Diagnoses Syncope, unspecified syncope type Procedures Cardiac event monitor CO EXTERNAL PATIENT ACTIVATED ECG DOWNLOAD W RESULTS & INTERP <= 30 DAYS CO EXTERNAL PAT AUTO ACTIVATED ECG INCLUDING TRANSMISSION UP TO 30 DAYS CO EXTERNAL MOBILE CV TELEMETRY W ECG RECORDING <=30D PHYSCIAN REV & INTERP CO EXTERNAL MOBILE CV TELEMETRY W ECG RECORDING TECH SUPPORT UP TO 30 DAYS CO ECG UP TO 30 DAYS RECORDING Dilip Dykes MD [address] [place] [address] [address] [place] [phone] Phone: tel: fax: Referral ID Status Reason Start Date Expiration Date Visits Re quested Visits Authorized [id number] Closed 07/02/2024 07/02/2025 1 1 Reason for Visit * Reason Comments Follow-up Encounter Details Date Type Department Care Team ([facility] st Contact Info) Description 07/02/2024 11:20 AM EST Office Visit [facility] [address] [place] [address] Dilip Dykes MD [address] [place] [address] [address] [place] [address] Anxiety (Primary Dx); Syncope, unspecified syncope type; Nonrheumatic aortic valve stenosis Social History Tobacco Use Types Packs/Day Years [...] on file documented as of this encounter Last Filed Vital Signs Vital Sign Reading Time Taken Comments Blood Pressure 140/60 07/02/2024 12:11 PM EST Pulse 72 07/02/2024 11:04 AM EST Temperature - - Respiratory Rate - - Oxygen Saturation 96% 07/02/2024 11:04 AM EST Inhaled Oxygen Concentration - - Weight 73.5 kg (162 lb) 07/02/2024 11:04 AM EST Height 149.9 cm (4' 11 ) 07/02/2024 11:04 AM EST Body Mass Index 32.72 07/02/2024 11:04 AM EST documented in this encounter Ordered Prescriptions Prescription Sig Dispense Quantity Refills Last Filled Start Date End Date mirtazapine (Remeron) 15 mg tabletIndications: Anxiety Take 1 tablet (15 mg total) by mouth at bedtime. 30 each 07/02/2024 08/01/2024 documented in this encounter Progress Notes * Dilip Dykes MD - 07/02/2024 11:20 AM ESTAssociated Problem(s): Aortic stenosis Status post bioprosthetic aortic valve with some slight increase in gradient. Understands need to continue with anticoagulation. Continues with warfarin without bleeding * Dilip Dykes MD - 07/02/2024 11:20 AM EST Images from the original note were not included. [facility] CONSULT REQUESTED BY: DR Schuler PCP: Paco Schuler MD HPI: Emily Whyte is a 78 y.o. old female with Patient is a 78-year-old Lebanese speaking status post aortic valve replacement with mechanical device without the need for bypass in the past. She is chronically anticoagulated with warfarin has a history of hypertension, hyperlipidemia and diabetes. Not seen in our office since 2021. Echo in 2021 showed an ejection fraction of 60% with grade 2 diast olic dysfunction [employer] mechanical valve well-seated trace insufficiency no stenosis the peak gradient was 25 mmHg with a mean gradient of 15 and a VTI ratio of 0.58 It appears that the patient was seen in the emergency room in May of this year with an episode of syncope. She had been recently admitted for upper GI bleed due to peptic ulcer. And has been admitted to [facility] with COVID- 19 and an upper GI bleed due to the peptic ulcer requiring transfusion and she was discharged a week prior to the episode of syncope. She was discharged with prednisone and furosemide from [facility]. Since discharge complaint of lightheadedness dyspnea on minimal exertion was making coffee felt dizzy nearly syncopized lay down on the floor and was helped to the bathroom by her spouse where she has several episodes of diarrhea and suffered an episode of syncope. Her EKG showed sinus rhythm left bundle branch block first-degree AV block She was discharged on 5 mg of amlodipine, 40 mg of furosemide, metoprolol 50 mg twice a day and Coumadin The visit to the emergency room at [facility] was on June 19, 2024. She was hospitalized at [facility] from June 08 to June 16 due to shortness of breath was found to be anemic she was transfused and then develops mild heart failure and pneumonia and COVID was treated with doxycycline and prednisone after discharge from her hospital she continued to be dizzy which is achronic complaint but was more noticeable at that time. And thus the dizziness that led up to her having the presyncope while making coffee. In the emergency room at [facility] her blood pressure was stable but I do not see orthostatics her hemoglobin is 10.4 INR is 2.7 creatinine was 1.2 Reportedly the patient had an echocardiogram done at [facility] that showed a 26 mmHg mean gradient across the aortic valve with a valve area 1.18 cm??. As far as the GI bleeding history at [facility] she reportedly had an ablation. The previous mean gradient across her valve is 15 mmHg in 2021 her new echocardiogram at [facility] showed diastolic dysfunction with an EF of 50 to 55% mild dilatation of the ascending aorta 4.4 cm mild mitral annular calcification It seems the patient was on sertraline but she stopped because her hair was falling out seems to sneha lot of stress at home with a with dementia. So with the sql engineer it is very difficult this to determine what her biggest complaint is she complains about being dizzy but it is more of a balance issue she has not fallen she has not had syncope. History of Present Illness ACTIVE MEDICATIONS: Outpatient Medications Marked as Taking for the 07/02/24 encounter (Office Visit) with Dilip Dykes MD Medication Sig Dispense Refill AMOXICILLIN ORAL Take 500 mg by mouth if needed. prior to dental procedures atorvastatin (LIPITOR) 40 mg tablet Take 1 tablet (40 mg total) by mouth 1 (one) time each day. insulin glargine (LANTUS) 100 unit/mL injection Inject 36 Units under the skin at bedtime. metFORMIN (GLUCOPHAGE) 850 mg tablet Take 1 tablet (850 mg total) by mouth 1 (one) time each day. metoprolol tartrate (LOPRESSOR) 50 mg tablet Take 1 tablet (50 mg total) by mouth 2 (two) times a day. pioglitazone (ACTOS) 30 mg tablet Take 1 tablet (30 mg total) by mouth 1 (one) time each day. valsartan (DIOVAN) 160 mg tablet Take 1 tablet (160 mg total) by mouth 1 (one) time each day. warfarin sodium (WARFARIN ORAL) Take 5 mg by mouth 1 (one) time each day. As directed daily/ Coumadin managed by PCP PAST MEDICAL HISTORY: Patient Active Problem List Diagnosis Hypertension Aortic stenosis ALLERGIES: Allergies Allergen Reactions Lisinopril Cough FAMILY HISTORY: No family history on file. SOCIAL HISTORY: Social History Tobacco Use Smoking status: Never Smokeless tobacco: Never Substance Use Topics Alcohol use: No REVIEW OF SYSTEMS: Review of Systems Constitutional: Negative. HENT: Negative. Eyes: Negative. Cardiovascular: Negative. Respiratory: Negative. Endocrine: Negative. Hematologic/Lymphatic: Negative. Skin: Negative. Musculoskeletal: Negative. Gastrointestinal: Negative. Genitourinary: Negative. Neurological: Positive for dizziness. Psychiatric/Behavioral: Negative. Allergic/Immunologic: Negative. All other systems reviewed and are negative. PHYSICAL EXAM: Vitals: 07/02/24 1104 07/02/24 1210 07/02/24 1211 BP: (!) 180/60 (!) 140/60 BP Location: Left arm Left arm Patient Position: Sitting Standing Pulse: 72 SpO2: 96% Weight: 73.5 kg (162 lb) Height: 1.499 m (59 ) Physical Exam Constitutional: Appearance: Normal appearance. HENT: Head: Normocephalic and atraumatic. Nose: Nose normal. Eyes: Extraocular Movements: Extraocular movements intact. Pupils: Pupils are equal, round, and reactive to light. Cardiovascular: Rate and Rhythm: Regular rhythm. Pulmonary: Breath sounds: Normal breath sounds. Abdominal: General: Abdomen is flat. Bowel sounds are normal. Palpations: Abdomen is soft. Musculoskeletal: General: Normal range of motion. Cervical back: Normal range of motion and neck supple. Skin: General: Skin is warm and dry. Neurological: General: No focal deficit present. Mental Status: She is alert. Psychiatric: Mood and Affect: Mood normal. EKG: No results found for this or any previous visit (from the past 4464 hour(s)). TESTING: ASSESSMENT/PLAN: Assessment & Plan Anxiety Patient had some side effects with sertraline as far as hair loss we will switch her to mirtazapineI warned her that the hair loss may come back again but she needs to get some anxiety relief so that she get some sleep Orders: mirtazapine (Remeron) 15 mg tablet; Take 1 tablet (15 mg total) by mouth at bedtime. Syncope, unspecified syncope type Patient with episode of syncope. Did not have much in the way of monitoring done afterwards. Will schedule her for a event monitor to see if there is any arrhythmias as the etiology for her episode Orders: Cardiac event monitor; Future Nonrheumatic aortic valve stenosis Status post bioprosthetic aortic valve with some slight increase in gradient. Understands need to continue with anticoagulation. Continues with warfarin without bleeding Assessment & Plan The [facility] team will continue to co-manage this patient following the plan of care as established by my initial visit and as per AHA guidelines for ongoing management and surveillance of Atrial Fibrillation and Valvular Heart Disease This will include medication titration, initiation of appropriate medications and further titration, and diagnostic studies to manage this disease process. documented in this encounter Plan of Treatment Upcoming Encounters Date Type Department Care Team (Late st Contact Info) Description 08/30/2024 2:10 PM EDT Office Visit [facility] [address] [place] [address] Madeleine Bass NP [address] [place] [address] [address] [place] [address] Pending Results Name Type Priority Associated Diagnoses Date /Time Cardiac event monitor Cardiac Services Routine Syncope, unspecified syncope type 07/13/2024 7:45 AM EST Scheduled Orders Name Type Priority Associated Diagnoses Orde r Schedule Cardiac event monitor Cardiac Services Routine Syncope, unspecified syncope type 1 Occurrences starting 07/02/2024 until 07/02/2025 documented as of this encounter Visit Diagnoses Diagnosis Anxiety- Primary Anxiety state, unspecified Syncope, unspecified syncope type Nonrheumatic aortic valve stenosis documented in this encounter Discontinued Medications Medication Sig Discontinue Reason Start Date End Da te amLODIPine (NORVASC) 5 mg tablet Take 1 tablet (5 mg total) by mouth 1 (one) time each day. Discontinued by another clinician 07/02/2024 ferrous sulfate (IRON ORAL) Take 65 mg by mouth 1 (one) time each day. Discontinued by another clinician 07/02/2024 documented as of this encounter Historical Medications * This list may reflect changes made after this encounter. valsartan (DIOVAN) 160 mg tablet Take 1 tablet (160 mg total) by mouth 1 (one) time each day. added in this encounter Care Teams Powder Core Tester Relationship Specialty Start Date End Date Paco Schuler MD [address] [place] [phone] PCP - General Internal Medicine 04/28/20 documented as of this encounter
--- OUTSIDE RECORDS SUMMARY | 2024-07-15 16:32 | XMS_ITS | Encounter Summary ---
Author Organization [facility] Address [address] [place] [address] Care Team Providers Care Survey Chief Name Role Phone Paco Schluer MD Primary Care Provider [phone] Reason for Visit * Reason Comments 30 day ROCT * Cardiac Stress Testing (Routine) - Closed Specialty Diagnoses / Procedures Referred By Esperanza anglin Referred To Contact Cardiology Diagnoses Syncope, unspecified syncope type Procedures Cardiac event monitor HI EXTERNAL PATIENT ACTIVATED ECG DOWNLOAD W RESULTS & INTERP <= 30 DAYS HI EXTERNAL PAT AUTO ACTIVATED ECG INCLUDING TRANSMISSION UP TO 30 DAYS HI EXTERNAL MOBILE CV TELEMETRY W ECG RECORDING <=30D PHYSCIAN REV & INTERP HI EXTERNAL MOBILE CV TELEMETRY W ECG RECORDING TECH SUPPORT UP TO 30 DAYS HI ECG UP TO 30 DAYS RECORDING Dilip Dykes MD [address] [place] [address] [address] [place] [address] Phone: tel: fax: Referral ID Status Reason Start Date Expiration Date Visits Re quested Visits Authorized [id number] Closed 07/02/2024 07/02/2025 1 1 Encounter Details Date Type Department Care Team (Latest Contact Info) Description 07/11/2024 8:00 AM EST Ancillary Procedure [facility] - [address] [place] [phone] Syncope, unspecified syncope type Social History Tobacco Use Types Packs/Day Years [...] on file documented as of this encounter Plan of Treatment Upcoming Encounters Date Type Department Care Team (Late st Contact Info) Description 08/30/2024 2:10 PM EDT Office Visit [facility] [address] [place] [address] [address] [place] [address] Madeleine Bass NP [address] [place] [address] [address] [place] [address] Pending Results Name Type Priority Associated Diagnoses Date /Time Cardiac event monitor Cardiac Services Routine Syncope, unspecified syncope type 07/13/2024 7:45 AM EST documented as of this encounter Visit Diagnoses Diagnosis Syncope, unspecified syncope type documented in this encounter Care Teams Survey Chief Relationship Specialty Start Date End Date Paco Schuler MD [address] [place] [phone] PCP - General Internal Medicine 04/28/20 documented as of this encounter
--- OUTSIDE RECORDS SUMMARY | 2024-07-15 16:32 | XMS_ITS | Encounter Summary ---
Author Organization [facility] Address [address] [place] [address] Care Team Providers Care Store Shopper Name Role Phone Paco Schuler MD Primary Care Provider [phone] Reason for Visit * Reason Onset Date Comments travel advise 07/08/2024 Encounter Details Date Type Department Care Team ([facility] Contact Info) Description 07/08/2024 Telephone [facility] [address] [place] [phone] Dilip Dykes MD [address] [place] [address] [address] [place], [place] [phone] travel advise Social History Tobacco Use Types Packs/Day Years [...] as of this encounter Progress Notes * Giovana Ugarte - 07/08/2024 2:16 PM EST The patients daughter in law Violeta called. They are planning on going on a trip to [facility] at the end of August. They would nina to know if this is ok to do with her current condition. Please call zabrina at [phone]. documented in this encounter Plan of Treatment Upcoming Encounters Date Type Department Care Team (Late st Contact Info) Description 08/30/2024 2:10 PM EDT Office Visit [facility] [address] [place] [address] [place] [address] Madeleine Bass NP [address] [place] [address] [address] [place] [address] documented as of this encounter Visit Diagnoses Not on filedocumented in this encounter Care Teams Store Shopper Relationship Specialty Start Date End Date Paco Schuler MD [address] [place] [address] PCP - General Internal Medicine 04/28/20 documented as of this encounter
--- OUTSIDE RECORDS SUMMARY | 2024-07-15 16:32 | XMS_ITS | Clinical Summary ---
Author Organization [facility] [employer] Address [address] [facility] [address] [place] [address] Phone Care Team Providers Care Agency Sales Director Name Role Phone Paco Schuler MD Primary Care Provider [phone] Allergies Active Allergy Reactions Criticality Noted Date Comments Lisinopril Cough 07/02/2024 Medications AMOXICILLIN ORAL Take 500 mg by mouth if needed. prior to dental procedures Active warfarin sodium (WARFARIN ORAL) Take 5 mg by mouth 1 (one) time each day. As directed daily/ Coumadin managed by PCP Active atorvastatin (LIPITOR) 40 mg tablet Take 1 tablet (40 mg total) by mouth 1 (one) time each day. Active insulin glargine (LANTUS) 100 unit/mL injection Inject 36 Units under the skin at bedtime. Active metFORMIN (GLUCOPHAGE) 850 mg tablet Take 1 tablet (850 mg total) by mouth 1 (one) time each day. Active metoprolol tartrate (LOPRESSOR) 50 mg tablet Take 1 tablet (50 mg total) by mouth 2 (two) times a day. Active pioglitazone (ACTOS) 30 mg tablet Take 1 tablet (30 mg total) by mouth 1 (one) time each day. Active valsartan (DIOVAN) 160 mg tablet Take 1 tablet (160 mg total) by mouth 1 (one) time each day. Active mirtazapine (Remeron) 15 mg tabletIndicati ons:Anxiety Take 1 tablet (15 mg total) by mouth at bedtime. 30 each 5 08/02/19 25 Active ferrous sulfate (IRON ORAL) Take 65 mg by mouth 1 (one) time each day. 07/02/19 25 Discontinu ed(Discont inued by another clinician) amLODIPine (NORVASC) 5 mg tablet Take 1 tablet (5 mg total) by mouth 1 (one) time each day. 07/02/19 25 Discontinu ed(Discont inued by another clinician) Active Problems Problem Noted Date Diagnosed Date Hypertension 04/15/2022 Overview (04/30/2024): Last Assessment & Plan: Patient's blood pressure is elevated. She was on 7.5 mg of amlodipine prior to her shoulder surgery but was decreased to 5 mg postoperatively. Her pressures up were going to increase her back to 7.5 mg a day of amlodipine she has been assessing the risks of lightheadedness or dizziness or peripheral edema that can occur. Patient is not using excessive amounts of nonsteroidals for pain management. Aortic stenosis 05/16/2020 Overview (04/30/2024): Last Assessment & Plan: Patient with a bioprosthetic aortic valve that is well-seated no mechanical issues at this time. He has amoxicillin available for dental prophylaxis and continues with anticoagulation with warfarin without bleeding. Gradient across the valve is stable with no insufficiency. Assessment & Plan (07/03/2024 6:24 PM EST): Status post bioprosthetic aortic valve with some slight increase in gradient. Understands need to continue with anticoagulation. Continues with warfarin without bleeding Encounters Date Type Department Care Team Description 07/11/2024 8:00 AM EST Ancillary Procedure [facility] [address] [place] [phone] Syncope, unspecified syncope type 07/08/2024 Telephone [facility] [address] [place] [address] Dilip Dykes MD travel advise 07/06/2024 Telephone [facility] [address] [facility] [facility] [address] [place] [address] Dilip Dykes MD ROCT - [id number] (Ok to Book); ROCT Enrollment (Enrolling patient for 30 day ROCT) 07/02/2024 11:20 AM EST Office Visit [facility] [address] [facility] [address] [place] [phone] Dilip Dykes MD Anxiety (Primary Dx); Syncope, unspecified syncope type; Nonrheumatic aortic valve stenosis from Last 3 Months Social History Tobacco Use Types Packs/Day Years Used Date Smoking Tobacco: Never Smokeless Tobacco: Never Alcohol Use Standard Drinks/Week Comments No 0 (1 standard drink = 0.6 oz pur e alcohol) Comments Unknown Sex and Gender Information Value Date Recorded Sex Assigned at Not on file Legal Sex Female 1:03 AM EST Gender Identity Not on file Sexual Orientation Not on file Obstetrics History Last Filed Vital Signs Vital Sign Reading [...] Mass Index 32.72 07/02/2024 11:04 AM EST Plan of Treatment Upcoming Encounters Date Type Department Care Team (Late st Contact Info) Description 08/30/2024 2:10 PM EDT Office Visit [facility] [address] [place] [phone] Madeleine Bass NP [address] [place] [address] [address] [place] [address] Health Maintenance Due Date Last Done Comments Diabetes: Annual GFR (Glomerular Filtration Rate) 1945 Diabetes: Annual Foot Exam 11/14/1955 Diabetes: Annual Retina Eye Exam 11/14/1955 DTaP,Tdap,and Td Vaccines (2 - Td or Tdap) 06/25/2016 06/25/2006 RSV Immunization Patients 60+ Years Old (1 - 1-dose 75+ series) 2020 Cholesterol Screening (Lipid Panel) 04/28/2022 Depression Screening 04/28/2022 Falls Risk Assessment 04/28/2022 Hepatitis C Screening 04/28/2022 Medicare Annual Wellness Visit 04/28/2022 Osteoporosis Screening (Bone Density Screening) 04/28/2022 Social Influencers of Health Screening 04/28/2022 Hypertension/CHF/CAD Annual BMP Blood Test 05/11/2022 Diabetes: Annual Urine Albumin-Creatinine Ratio (uACR) 07/02/2024 Diabetes: Blood Sugar Control Test (HGBA1C) 07/02/2024 Zoster Vaccines Completed 04/01/2020, 01/22/2020 Pneumococcal Vaccine: 50+ Years Completed 04/07/2023, 10/10/2017, 04/06/2007 COVID-19 Vaccine Completed 04/03/2024, , 04/04/2022, Additional history exists Influenza Vaccine Completed 04/03/2024, , 03/22/2022, Additional history exists HIB Vaccines Aged Out No longer eligi ble based on patient's age to complete this topic HPV Vaccines Aged Out No longer eligi ble based on patient's age to complete this topic Hepatitis A Vaccines Aged Out No long er eligible based on patient's age to complete this topic Hepatitis B Vaccines Aged Out No long er eligible based on patient's age to complete this topic IPV Vaccines Aged Out No longer eligi ble based on patient's age to complete this topic MMR Vaccines Aged Out No longer eligi ble based on patient's age to complete this topic Meningococcal ACWY Vaccine Aged Out N o longer eligible based on patient's age to complete this topic Meningococcal B Vacine Aged Out No lo nger eligible based on patient's age to complete this topic RSV Immunization Patients Under 20 months Aged Out No longer eligible based on patient's age to complete this topic Varicella Vaccines Aged Out No longer eligible based on patient's age to complete this topic Insurance [employer] Care Teams Agency Sales Director Relationship Specialty Start Date End Date Paco Schuler MD [address] [place] [phone] PCP - General Internal Medicine 04/28/20
[2024-07-15 16:38] LABS: Alkaline Phosphatase 102 U/L (39-117)
[2024-07-15 22:37] VITALS: BP 193/80; PULSE 99; RESP 16; TEMP 36.8; O2SAT 96
--- NOTE | 2024-07-15 23:57 | PC.NURSE ---
this RN at bedside with provider doing rectal exam.
[2024-07-16] VITALS (18 sets, daily range): BP systolic 150–185; BP diastolic 53–83; PULSE 80–103; RESP 14–24; TEMP 36.2–37.1; O2SAT 88–98; BMI 33.7
[2024-07-16 00:08] LABS: OBS Int Ctl Valid YES; OBS1 NEGATIVE (NEGATIVE)
[2024-07-16 00:14] LABS: Hematocrit 27.6 % (37.0-47.0); Hemoglobin 8.5 g/dl (12.0-16.0)
[2024-07-16] MEDS: Pantoprazole Sodium 40 MG/10 ML VIAL IVPUSH ×3 (00:20→16:14)
--- NOTE | 2024-07-16 01:11 | P.HPHOSP_ITS ---
History of Present Illness Date of Service: 07/16/24 Chief Complaint: rectal bleed 78-year-old?female Congolese speaking?patient with past medical history of diabetes, hypertension, mechanical aortic valve on chronic Coumadin, small non bleeding angioectasia in the fundus ablated 2018, history breast cancer. Patient was admitted here on 06/12 to 06/16 for covid related respiatory failure and that time had gib with anemia was transfused with good effect and the plan was to have EGD done on outpatient basis. She was admitted at [facility] on 06/22 and discharged the next day for syncope attributed to meds related low blood pressure. She presents today with similar complaint of fatigue, sob with exertion, dizziness and having been having blood in the stool for nearly 1 week now. Her hamotocrit is 27, danyelle from 33 when last checked on 06/16. Stool occult is negative. INR is 2. She is being transfused 1 unit Review of Systems 2 Review of Systems: Gen: no fever Resp: + sob, no cough CV: no chest, + OBANDO, no leg edema GI: No n/v, no abd pain, reports dark stools Neuro: No confusion Yes all other systems are reviewed and are negative [facility] Medical History Breast cancer Diabetes Anticoagulated on Coumadin Hypertension Surgical History Heart valve replaced Social History Household Members: Spouse and Family Housing: House Do you presently have visiting nurse or other home services: No Alcohol intake: never Patient Tobacco Use Status: Never used Tobacco service: No Meds Allergies Allergy/AdvReac Type Severity Reaction Status Date / Time No Known Allergies Allergy Verified 07/15/24 15:18 Home Medications ?Medication ?Instructions ?Recorded ?Confirmed ?Last Taken ?Type atorvastatin 40 mg tablet 40 mg PO DAILY@89906/12/24 07/16/24 07/15/24 History insulin glargine 100 unit/mL (3 36 unit subcut DAILY@0900 06/12/24 07/16/24 07/15/24 History mL) subcutaneous pen (Lantus Solostar U-100 Insulin) metformin 850 mg tablet 850 mg PO DAILY@2100 06/12/24 07/16/24 07/14/24 History metoprolol tartrate 50 mg tablet 50 mg PO BID 06/12/24 07/16/24 07/15/24 History pioglitazone 30 mg tablet 30 mg PO DAILY@0900 06/12/24 07/16/24 07/15/24 History valsartan 160 mg tablet 160 mg PO DAILY@0900 06/12/24 07/16/24 07/15/24 History warfarin 5 mg tablet 7.5 mg PO TUTH@1800 06/12/24 07/16/24 07/13/24 History mirtazapine 15 mg tablet 15 mg PO BEDTIME 07/16/24 07/16/24 07/14/24 History pantoprazole 40 mg tablet,delayed 40 mg PO DAILY@0630 07/16/24 07/16/24 07/15/24 History release warfarin 5 mg tablet 5 mg PO SUMOWEFRSA 07/16/24 07/16/24 07/14/24 History Physical Exam 2 Vital Signs and Narrative: Vital Signs: Last Vital Signs Temp 98.1 F 07/16/24 00:23 Pulse 92 07/16/24 00:23 Resp 20 07/16/24 00:23 BP 175/66 H 07/16/24 00:23 Pulse Ox 92 07/16/24 00:23 O2 Del Method Room Air 07/16/24 00:23 BMI result Body Mass Index 33.3 Const: Other: Constitutional: Alert, in no distress, Mental Status: Oriented to person, place and time. Eyes: Pupils are equal, round and reactive to light. Ear, Nose and Throat: Oropharynx clear, mucous membranes moist. Ears and nose without deformities. Trachea midline. Respiratory: Clear to auscultation. No wheezing, rales or rhonchi. Cardiovascular: S1 S2 regular. No murmurs, rubs or gallops. Gastrointestinal: Abdomen soft, non-tender, non-distended. Normal bowel sounds.?rectal exam deffered Neurologic: Cranial nerves II-XII grossly intact. No focal neurological deficits. Moves all extremities spontaneously.? Skin: No rashes or lesions.? Musculoskeletal: No cyanosis or clubbing. Psychiatric: Normal mood and affect? Results Labs 07/17/24 05:34 07/17/24 05:34 Labs: Laboratory Results - last 24 hr 07/15/24 07/15/24 07/16/24 15:27 22:57 00:01 MCV 86.8 MCH 26.0 L MCHC 30.0 L RDW 16.7 H Plt Count 259 MPV 9.4 Immature Gran % (Auto) 0.5 H Neut % (Auto) 60.0 Lymph % (Auto) 24.5 Ramsey % (Auto) 11.4 H Eos % (Auto) 2.9 Baso % (Auto) 0.7 Lymph # (Auto) 1.4 Ramsey # (Auto) 0.7 Eos # (Auto) 0.2 Baso # (Auto) 0.0 Abs Immat Gran (auto) 0.03 Absolute Neuts (auto) 3.5 Absolute Nucleated RBC 0.000 Nucleated RBC % (auto) 0.0 PT 24.2 H INR 2.1 H APTT 39.3 H D Anion Gap 10 L Estim Creat Clear Calc 40.4 Estimated GFR 53 Random Glucose 348 H Calcium 8.8 Total Bilirubin 0.2 AST 25 ALT 16 Alkaline Phosphatase 102 Total Protein 6.9 Albumin 3.7 Stool Occult Blood NEGATIVE Blood Type O Positive Antibody Screen NEGATIVE Crossmatch See Detail Assessment and Plan (1) Acute upper GI bleed: Status: Acute (2) Anemia: Status: Acute Plan 78F PMH mechanical AVR on coumadin, DM, htn, breast cancer, osteoarthritis, presented with shortness of breath, fatigue, dark stool and anemia Acute blood loss anemia GI blood loss IV ppi, GI consult Transfuse 1 unit and Monitor hemoglobin Mechanical AVR inr therapeutic continue coumadin Diabetes Insulin sliding scale hold metformin and actos diabetic diet Hypertension amlodipine, valsartan, metoprolol DVT prophylaxis-on Coumadin Full code Quality Stroke Does the patient have a stroke diagnosis?: No VTE Prior VTE?: No VTE Risk Level:: Medical - moderate - high VTE Device Contraindication: Treatment Not Indicated VTE Drug Contraindication: N/A - Med Ordered
--- NOTE | 2024-07-16 02:53 | PC.NURSE ---
aware of elevated blood pressures. No new orders at this time
[2024-07-16 03:11] LABS: Glucose, Whole Blood 52 mg/dL (60-115)
--- NOTE | 2024-07-16 03:11 | MHC.EDTECH ---
Patient blood sugar was check ,RN aware of result of 52 ,[place] juice with sugar was given.
--- NOTE | 2024-07-16 03:41 | PC.NURSE ---
poc 96, report received from Liz. calle
[2024-07-16 03:44] LABS: Glucose, Whole Blood 96 mg/dL (60-115)
[2024-07-16] MEDS: Labetalol HCL 100 MG/20 ML VIAL IVPUSH (03:58)
[2024-07-16 04:59] LABS: Hematocrit 27.4 % (37.0-47.0); Hemoglobin 8.5 g/dl (12.0-16.0); Mean Corpuscular Hemoglobin 26.3 pg (27.0-33.0); Mean Corpuscular Volume 84.8 fL (80.0-98.0); Mean Platelet Volume 9.4 fL (9.4-12.3); Platelet Count 254 X10*3/uL (160-400); Red Blood Count 3.23 X10*6/uL (4.20-5.50); Red Cell Distribution Width 16.9 % (11.0-16.0); White Blood Count 6.5 X10*3/uL (4.8-10.8)
[2024-07-16 05:12] LABS: Alanine Aminotransferase 12 U/L (0-31); Albumin Level 3.3 g/dL (3.5-5.0); Alkaline Phosphatase 92 U/L (39-117); Anion Gap 11 (12-20); Aspartate Amino Transferase 22 U/L (5-31); Bilirubin Total 0.4 mg/dL (0.0-1.0); Blood Urea Nitrogen 14 mg/dL (9-16); Calcium 8.8 mg/dL (8.4-10.2); Carbon Dioxide 23 mmol/L (22-29); Chloride 113 mmol/L (96-108); Creatinine Clr Calc Pharmacy 54.4; Estimated Glomerular Filt Rate > 60; Glucose Random 146 mg/dL (60-115); Sodium 143 mmol/L (135-145); Total Protein 6.1 g/dL (6.5-8.0)
[2024-07-16 07:18] LABS: Glucose, Whole Blood 97 mg/dL (60-115)
--- NOTE | 2024-07-16 08:52 | P.CNGI_ITS ---
History of Present Illness Data of Consult Service Date: 07/16/24 Requesting physician: Delfin Ferreira Primary Care Provider: Vinod Reynolds MD HPI Reason for consult: gib, acute blood loss anemia 78 YF (Yemeni speaking) with diabetes, hypertension, mechanical aortic valve on chronic Coumadin, small non bleeding angioectasia in the fundus ablated 2018, history breast cancer. Patient was admitted here on 06/12 to 06/16 for covid related respiatory failure and that time had GI bleeding with anemia and was transfused with appropriate increase in H&H. Evaluation of anemia with an EGD and colon were planned as an outpatient at the time of discharge. Pt was at [facility] on 06/22 and discharged the next day for syncope attributed to meds related low blood pressure. Pt was seen at [facility] on 07/15/24 with fatigue, sob with exertion, dizziness and blood in the stool x 1 week now. Pt reports having dark/black stools since 07/10/24 and feeling dizzy since 07/14/24 She denies abd pain, nausea, vomiting, constipation or diarrhea. Pt reports she was hospitalized approx a year ago at [facility] and given blood transfusion. Pt denies smoking or ETOH abuse. Her hamotocrit is 27, decreased from 33 when last checked on 06/16. Stool occult is negative. INR is 2. Pt was transfused 1 U PRBC Per son she had EGD and colo 5 yrs ago [place] [facility] [place] [facility] for anemia, and was found to have an ulcer treated with cautery. Review of Systems 2 Review of Systems: Yes all other systems are reviewed and are negative PMFSH Past Medical History Medical History Breast cancer Diabetes Anticoagulated on Coumadin Hypertension Surgical History Surgical History Heart valve replaced Social History Social History Household Members: Spouse and Family Housing: House Do you presently have visiting nurse or other home services: No Alcohol intake: never Patient Tobacco Use Status: Never used Tobacco service: No Meds Allergies Allergy/AdvReac Type Severity Reaction Status Date / Time No Known Allergies Allergy Verified 07/15/24 15:18 Active Medications: Current Medications Acetaminophen (Acetaminophen 325 Mg Tablet) 650 mg PO Q6H PRN PRN Reason: Pain, Mild 1-3,fever,headache Al Hydroxide/Mg Hydroxide (Magnesium Hydrox/Alum Hydrox 30 Ml Oral.Susp) 30 ml PO Q4H PRN PRN Reason: Heartburn Calcium Carbonate (Calcium Carbonate 750 Mg Tab.Chew) 750 mg PO Q4H PRN PRN Reason: Heartburn Dextrose (Dextrose 50 % 25 Gm/50 Ml Syringe) 25 gm IVPUSH Q15M PRN; Protocol PRN Reason: per Hypoglycemia Standing Ord. Glucose (Glucose Gel 15 Gm Gel..Gram.) 15 gm PO Q15M PRN; Protocol PRN Reason: per Hypoglycemia Standing Ord. Insulin Human Lispro (Insulin Lispro 100 Unit/Ml 3 Ml Vial) 0 unit SUBCUT QIDACHS [facility]; Protocol Last Admin: 07/16/24 07:04 Dose: Not Given Magnesium Hydroxide (Milk Of Magnesia 30 Ml Oral.Susp) 30 ml PO DAILY PRN PRN Reason: Constipation Melatonin (Melatonin 3 Mg Tablet) 6 mg PO BEDTIME PRN PRN Reason: Insomnia Ondansetron HCl (Ondansetron Hcl 4 Mg/2 Ml Vial) 4 mg IVPUSH Q8H PRN PRN Reason: Nausea and Vomiting Pantoprazole Sodium (Pantoprazole Sodium 40 Mg/10 Ml Vial) 40 mg IVPUSH BID@0630,1630 [facility] Last Admin: 07/16/24 07:22 Dose: 40 mg Polyethylene Glycol (Polyethylene Glycol 3350 17 Gm Powd.Pack) 17 gm PO DAILY PRN PRN Reason: Constipation Sodium Chloride (0.9 % Sodium Chloride Flush 3 Ml Syringe) [facility] Last Admin: 07/16/24 07:45 Dose: Not Given Home Medications ?Medication ?Instructions ?Recorded ?Confirmed ?Last Taken ?Type atorvastatin 40 mg tablet 40 mg PO DAILY@89906/12/24 07/16/24 07/15/24 History insulin glargine 100 unit/mL (3 36 unit subcut DAILY@89906/12/24 07/16/24 07/15/24 History mL) subcutaneous pen (Lantus Solostar U-100 Insulin) metformin 850 mg tablet 850 mg PO DAILY@209906/12/24 07/16/24 07/14/24 History metoprolol tartrate 50 mg tablet 50 mg PO BID 06/12/24 07/16/24 07/15/24 History pioglitazone 30 mg tablet 30 mg PO DAILY@0900 06/12/24 07/16/24 07/15/24 History valsartan 160 mg tablet 160 mg PO DAILY@0900 06/12/24 07/16/24 07/15/24 History warfarin 5 mg tablet 7.5 mg PO TUTH@1800 06/12/24 07/16/24 07/13/24 History mirtazapine 15 mg tablet 15 mg PO BEDTIME 07/16/24 07/16/24 07/14/24 History pantoprazole 40 mg tablet,delayed 40 mg PO DAILY@0630 07/16/24 07/16/24 07/15/24 History release warfarin 5 mg tablet 5 mg PO SUMOWEFRSA 07/16/24 07/16/24 07/14/24 History Physical Exam 2 Vital Signs: Vital Signs: Last Vital Signs Temp 98.5 F 07/16/24 07:00 Pulse 83 07/16/24 07:00 Resp 20 07/16/24 07:00 BP 181/73 H 07/16/24 07:00 Pulse Ox 98 07/16/24 07:00 O2 Del Method Nasal Cannula 07/16/24 07:00 O2 Flow Rate 2 07/16/24 07:00 BMI result Body Mass Index 33.3 Const: General: no acute distress Nutritional Appearance: obese O rientation/consciousness: patient oriented x3 Limitations: language barrier HEENT: Head: Yes normal to inspection Ears: hearing grossly normal bilaterally Eyes: Sclerae: sclerae normal Pupils: Equal, round and reactive pupils present Neck: Neck: Yes normal visual inspection Chest: Chest palpation & inspection: normal inspection of the chest Resp: Effort & Inspection: normal respiratory effort Auscultation: clear to auscultation bilaterally Cardio: Palpation: normal PMI Rate: regular rate Rhythm: regular rhythm Heart sounds: S1 normal heart sound present, S2 normal heart sound present and no murmurs GI: Palpation (GI): Soft to palpation, nontender and No hepatosplenomegaly present Auscultation: normal bowel sounds Rectal Exam - Female: deferred Skin: General skin exam: no rashes or lesions noted Neuro: General: patient oriented x3, gait normal and moves all extremities Cranial nerves: Yes Equal, round and reactive pupils present Psych: Appearance: grossly normal Mental Status: mental status grossly normal Results Labs 07/17/24 05:34 07/17/24 05:34 Labs: Short CBC 07/15/24 07/16/24 07/16/24 Range/Units 15:27 00:07 04:52 WBC 5.8 6.5 (4.8-10.8) X10*3/uL Hgb 8.1 L D 8.5 L 8.5 L (12.0-16.0) g/dl Hct 27.0 L 27.6 L 27.4 L (37.0-47.0) % Plt Count 259 254 (160-400) X10*3/uL BMP 07/15/24 07/16/24 15:27 04:52 Sodium 143 143 Potassium 4.3 4.0 Chloride 113 H 113 H Carbon Dioxide 24 23 BUN 20 H 14 Creatinine 1.01 0.75 Calcium 8.8 8.8 Liver Function 07/15/24 07/16/24 Range/Units 15:27 04:52 Total Bilirubin 0.2 0.4 (0.0-1.0) mg/dL AST 25 22 (5-31) U/L ALT 16 12 (0-31) U/L Alkaline Phosphatase 102 92 (39-117) U/L Albumin 3.7 3.3 L (3.5-5.0) g/dL Assessment and Plan (1) Acute on chronic blood loss anemia: Status: Acute Plan 78 YF (Yemeni speaking) with diabetes, hypertension, mechanical aortic valve on chronic Coumadin, small non bleeding angioectasia in the fundus ablated 2018, history breast cancer. Patient was admitted here on 06/12 to 06/16 for covid related respiatory failure and that time had GI bleeding with anemia and was transfused with appropriate increase in H&H. Evaluation of anemia with an EGD and colon were planned as an outpatient at the time of discharge. Pt was seen at [facility] on 07/15/24 with fatigue, sob with exertion, dizziness and blood in the stool x 1 week now. Pt reports having dark/black stools since 07/10/24 and feeling dizzy since 07/14/24 Her hamotocrit is 27, decreased from 33 when last checked on 06/16. Stool occult is negative. INR is 2. Pt was transfused 1 U PRBC with appropriate increase in H&H Per son she had EGD and colo 5 yrs ago [place] [facility] [place] [facility] for anemia, and was found to have an ulcer treated with cautery. Recurrent anemia possibly Upper (PUD, erosive esophagitis, upper GI AVM or Dieulafoy's) versus LGI (polyp or AVM) source RECOMMENDATIONS: 1. Agree with IV PPI and IV iron 2. Monitor CBC daily and transfuse prn 3. Pt is scheduled for an EGD and a colonoscopy on 07/19/24 Clear liquid diet and Golytely prep on 07/18/24 - order placed. Procedures Date of Service Date of Service: 07/17/24
--- NOTE | 2024-07-16 09:19 | PC.NURSE ---
assumed care of patient at 0700, patient is awake and alert, resp even and unlabored, currently on 2lNC, patient poc 97- no insulin coverage needed. patient boosted and repositioned in bed, VSS patient medicated per MAR
--- NOTE | 2024-07-16 10:03 | MHC.CM.ED ---
Attempted to meet with patient in regards to discharge planning. Patient currently sleeping. Spoke with patient's [id number], Violeta, via telephone at [phone]. Patient is primarily Hong Konger speaking, lives with Violeta and other family members, ambulates independently and is active with [facility]. PCP verified. Copy of HCP obtained from [facility]. IMM explained and left bedside. Violeta denies the need for STR because family is able to assist patient. Family will transport patient home when medically stable. Continue to monitor for d/c needs.
--- NOTE | 2024-07-16 10:40 | PHA.MEDREC ---
Addendum entered by Carlos Garnett 07/16/24 11:36: reviewed Original Note: Pharmacy Consult ? Medication Reconciliation Pharmacy has completed the medication reconciliation. Spoke with patients daughter over the phone who was able to confirm her moms medications. She confirmed her moms Dr stopped the Amlodipine 10mg tab due to her mom blood pressure being to low. The patient also stopped taking the Lisinopril-Hydrochlorothiazide tab recently and is now taking the Valsartan 160mg tab once a day. The patient also recently stopped taking the Sertraline 50mg tab and is now taking the Mirtazapine 15mg tab once at bedtime. The daughter confirmed the patient is taking Warfarin 5mg tabs on Sundays, Mondays, Wednesdays, Fridays and Saturdays and Warfarin 7.5mg tabs on Tuesdays and and the patient last took the Warfarin on Friday evening. The daughter confirmed her mom took her morning medications yesterday morning before coming into the ED.
[2024-07-16 12:13] LABS: Glucose, Whole Blood 82 mg/dL (60-115)
[2024-07-16] MEDS: Acetaminophen 325 MG TABLET 650 MG PO (15:47)
--- NOTE | 2024-07-16 15:50 | PC.NURSE ---
patient given prn tylenol for headache, pain 8/10, patient agreeable to tylenol
[2024-07-16 17:07] LABS: Glucose, Whole Blood 85 mg/dL (60-115)
--- NOTE | 2024-07-16 17:33 | PM.EVENT ---
Event Note Date of Service: 07/16/24 Event Note: Patient seen and evaluated No reported bleeding during the day Hb stable occult negative COntinue Pantoprazole restart Warfarin, follow INR Pending GI evaluation start diet Time Spent With Patient Time: Total time managing care of this patient today ____ minutes.
[2024-07-16] MEDS: Sodium Ferric Gluconat/Sucrose 125 MG in 0.9 % Sodium Chloride 100 ML 100 MG IV (18:24)
[2024-07-16 19:15] LABS: INTERNATIONAL NORM RATIO 1.7 (0.9-1.1)
[2024-07-16 20:20] LABS: Glucose, Whole Blood 81 mg/dL (60-115)
[2024-07-16] MEDS: Mirtazapine 15 MG TABLET PO (20:52)
[2024-07-16] MEDS: Metoprolol Tartrate 50 MG TABLET PO (20:52)
[2024-07-16] MEDS: Warfarin Sodium 5 MG TABLET PO (20:53)
[2024-07-17] VITALS (9 sets, daily range): BP systolic 122–183; BP diastolic 68–80; PULSE 75–85; RESP 12–18; TEMP 36.7–37; O2SAT 89–96
[2024-07-17] MEDS: Pantoprazole Sodium 40 MG/10 ML VIAL IVPUSH ×2 (06:10→15:38)
[2024-07-17 06:17] LABS: MANUAL DIFF FLAG NO
--- NOTE | 2024-07-17 06:23 | PC.NURSE ---
Arrived to the unit around 1840 to rm 377 on a stretcher, alert and oriented, Malaysian Speaking mostly, Video educational interpreter was utilized, pt denies any pain, claimed had a near syncope at home and fell witnessed by family, denies any dizziness, pt has an outpt residential monitor from her Cardio, safety measures instructed, callbell in reach.
[2024-07-17 06:25] LABS: Basophils Absolute Auto 0.1 X10*3/uL (0.0-0.2); Basophils Percent Auto 0.7 % (0-2); Eosinophils Absolute Auto 0.2 X10*3/uL (0.0-0.4); Eosinophils Percent Auto 2.6 % (0-4); Hematocrit 30.4 % (37.0-47.0); Hemoglobin 9.2 g/dl (12.0-16.0); Imm Gran Abs Auto 0.02 X10*3/uL (0.00-0.03); Imm Gran Pct Auto 0.3 % (0.0-0.4); Lymphocytes Percent Auto 13.4 % (20-40); Mean Corpuscular HGB Conc 30.3 g/dl (31.0-35.0); Mean Corpuscular Volume 85.9 fL (80.0-98.0); Mean Platelet Volume 10.1 fL (9.4-12.3); Monocytes Absolute Auto 0.8 X10*3/uL (0.1-1.2); Monocytes Percent Auto 10.5 % (2-11); Neutrophils Absolute Auto 5.3 x10*3/uL (2.0-8.3); Neutrophils Percent Auto 72.5 % (45-73); Platelet Count 287 X10*3/uL (160-400); Red Blood Count 3.54 X10*6/uL (4.20-5.50); Red Cell Distribution Width 16.7 % (11.0-16.0); White Blood Count 7.3 X10*3/uL (4.8-10.8)
[2024-07-17 06:26] LABS: INTERNATIONAL NORM RATIO 1.8 (0.9-1.1); Prothrombin Time 21.3 SEC (10.9-12.4)
[2024-07-17 06:35] LABS: Anion Gap 11 (12-20); Blood Urea Nitrogen 11 mg/dL (9-16); Carbon Dioxide 27 mmol/L (22-29); Chloride 110 mmol/L (96-108); Creatinine Clr Calc Pharmacy 51.4; Estimated Glomerular Filt Rate > 60; Glucose Random 110 mg/dL (60-115); Iron 161 mcg/dL (30-160); Percent Iron Saturation 62 % (15-50); Potassium 4.8 mmol/L (3.3-5.1); Sodium 143 mmol/L (135-145); Total Iron Binding Capacity 258 mcg/dL (228-428); Unsaturated Iron Binding 97 ug/dL
[2024-07-17] MEDS: Valsartan 160 MG TABLET PO (07:52)
[2024-07-17] MEDS: Pioglitazone HCL 30 MG TABLET PO (07:52)
[2024-07-17] MEDS: 0.9 % Sodium Chloride Flush 3 ML SYRINGE IVFLUSH ×3 (07:53→21:04)
[2024-07-17] MEDS: Metoprolol Tartrate 50 MG TABLET PO ×2 (07:53→21:03)
[2024-07-17 07:59] LABS: Glucose, Whole Blood 107 mg/dL (60-115)
[2024-07-17] MEDS: Sodium Ferric Gluconat/Sucrose 125 MG in 0.9 % Sodium Chloride 100 ML 100 MG IV (10:04)
--- NOTE | 2024-07-17 10:57 | PC.NURSE ---
PT ambulated in room on room air. O2 sats 89% on room air and pt SOB. Assisted back to bed and O2 1L NC placed back on pt. Sats improved to 91%
[2024-07-17 11:38] LABS: Glucose, Whole Blood 245 mg/dL (60-115)
[2024-07-17] MEDS: Insulin Lispro 100 UNIT/ML 3 ML VIAL SUBCUT ×2 (12:16→21:03)
[2024-07-17] MEDS: Enoxaparin Sodium 80 MG/0.8 ML SYRINGE SUBCUT ×2 (13:07→23:05)
--- NOTE | 2024-07-17 13:24 | HO.PM.IMPN ---
Subjective Subjective Date of Service: 07/17/24 Interval History: She was seen and evaluated this morning feels better overall no fever or chills Hb stable Review of Systems Review of Systems: Yes all other systems are reviewed and are negative Physical Exam Vital Signs: Vital Signs: Last Vital Signs Temp 98.6 F 07/17/24 08:06 Pulse 77 07/17/24 09:08 Resp 12 07/17/24 08:06 BP 144/68 H 07/17/24 09:08 Pulse Ox 91 L 07/17/24 10:45 O2 Del Method Nasal Cannula 07/17/24 10:45 O2 Flow Rate 1 07/17/24 10:45 BMI result Body Mass Index 33.7 Const: Other: Constitutional : interactive, not in distress Cardiovascular : no JVP, no lower extremity edema Respiratory : bilateral chest movement, not in resp distress Gastrointestinal: soft, lax, Non tender Skin : Warm, Dry Neurological : Alert & oriented , No focal deficit Objective Data Active Medications Acetaminophen (Acetaminophen 325 Mg Tablet) 650 mg PO Q6H PRN PRN Reason: Pain, Mild 1-3,fever,headache Last Admin: 07/16/24 15:47 Dose: 650 mg Documented By: AMBREEN Al Hydroxide/Mg Hydroxide (Magnesium Hydrox/Alum Hydrox 30 Ml Oral.Susp) 30 ml PO Q4H PRN PRN Reason: Heartburn Calcium Carbonate (Calcium Carbonate 750 Mg Tab.Chew) 750 mg PO Q4H PRN PRN Reason: Heartburn Dextrose (Dextrose 50 % 25 Gm/50 Ml Syringe) 25 gm IVPUSH Q15M PRN; Protocol PRN Reason: per Hypoglycemia Standing Ord. Enoxaparin Sodium (Enoxaparin Sodium 80 Mg/0.8 Ml Syringe) 80 mg 1 mg/kg (80 mg) SUBCUT Q12H JUANITA Last Admin: 07/17/24 13:07 Dose: 80 mg Documented By: GABRIELLA Glucose (Glucose Gel 15 Gm Gel..Gram.) 15 gm PO Q15M PRN; Protocol PRN Reason: per Hypoglycemia Standing Ord. Ferric Sodium Gluconate Complex 125 mg/ Sodium Chloride 110 mls @ 100 mls/hr IV DAILY JUANITA Stop: 07/18/24 10:05 Last Infusion: 07/17/24 11:22 Dose: Infused Documented By: GABRIELLA Insulin Human Lispro (Insulin Lispro 100 Unit/Ml 3 Ml Vial) 0 unit SUBCUT QIDACHS [facility]; Protocol Last Admin: 07/17/24 12:16 Dose: 4 unit Documented By: GABRIELLA Magnesium Hydroxide (Milk Of Magnesia 30 Ml Oral.Susp) 30 ml PO DAILY PRN PRN Reason: Constipation Melatonin (Melatonin 3 Mg Tablet) 6 mg PO BEDTIME PRN PRN Reason: Insomnia Metoprolol Tartrate (Metoprolol Tartrate 50 Mg Tablet) 50 mg PO BID [facility]; Protocol Last Admin: 07/17/24 07:53 Dose: 50 mg Documented By: GABRIELLA Mirtazapine (Mirtazapine 15 Mg Tablet) 15 mg PO BEDTIME [facility] Last Admin: 07/16/24 20:52 Dose: 15 mg Documented By: VERONICA Ondansetron HCl (Ondansetron Hcl 4 Mg/2 Ml Vial) 4 mg IVPUSH Q8H PRN PRN Reason: Nausea and Vomiting Pantoprazole Sodium (Pantoprazole Sodium 40 Mg/10 Ml Vial) 40 mg IVPUSH BID@0630,1630 [facility] Last Admin: 07/17/24 06:10 Dose: 40 mg Documented By: VERONICA Pioglitazone HCl (Pioglitazone Hcl 30 Mg Tablet) 30 mg PO DAILY@0900 [facility] Last Admin: 07/17/24 07:52 Dose: 30 mg Documented By: GABRIELLA Polyethylene Glycol (Polyethylene Glycol 3350 17 Gm Powd.Pack) 17 gm PO DAILY PRN PRN Reason: Constipation Sodium Chloride (0.9 % Sodium Chloride Flush 3 Ml Syringe) 3 ml IVFLUSH QSHIFT [facility] Last Admin: 07/17/24 07:53 Dose: 3 ml Documented By: GABRIELLA Valsartan (Valsartan 160 Mg Tablet) 160 mg PO DAILY@0900 [facility]; Protocol Last Admin: 07/17/24 07:52 Dose: 160 mg Documented By: GABRIELLA Labs 07/17/24 05:34 07/17/24 05:34 Labs: Laboratory Results - last 24 hr 07/16/24 07/16/24 07/16/24 17:03 18:59 20:15 MCV MCH MCHC RDW Plt Count MPV Immature Gran % (Auto) Neut % (Auto) Lymph % (Auto) [place] % (Auto) Eos % (Auto) Baso % (Auto) Lymph # (Auto) [place] # (Auto) Eos # (Auto) Baso # (Auto) Abs Immat Gran (auto) Absolute Neuts (auto) Absolute Nucleated RBC Nucleated RBC % (auto) PT 20.0 H INR 1.7 H Anion Gap Estim Creat Clear Calc Estimated GFR POC Glucose 85 81 Random Glucose Calcium Iron TIBC % Saturation Unsat Iron Binding 07/17/24 07/17/24 07/17/24 05:34 07:46 11:34 MCV 85.9 MCH 26.0 L MCHC 30.3 L RDW 16.7 H Plt Count 287 MPV 10.1 Immature Gran % (Auto) 0.3 Neut % (Auto) 72.5 Lymph % (Auto) 13.4 L [place] % (Auto) 10.5 Eos % (Auto) 2.6 Baso % (Auto) 0.7 Lymph # (Auto) 1.0 L [place] # (Auto) 0.8 Eos # (Auto) 0.2 Baso # (Auto) 0.1 Abs Immat Gran (auto) 0.02 Absolute Neuts (auto) 5.3 Absolute Nucleated RBC 0.000 Nucleated RBC % (auto) 0.0 PT 21.3 H INR 1.8 H Anion Gap 11 L Estim Creat Clear Calc 51.4 Estimated GFR > 60 POC Glucose 107 245 H Random Glucose 110 Calcium 9.0 Iron 161 H TIBC 258 % Saturation 62 H Unsat Iron Binding 97 Assessment and Plan (1) On warfarin therapy: Status: Acute (2) Acute upper GI bleed: Status: Acute (3) Acute on chronic blood loss anemia: Status: Acute Plan 78F PMH mechanical AVR on coumadin, DM, htn, breast cancer, osteoarthritis, presented with shortness of breath, fatigue, dark stool and anemia Acute on chronic blood loss anemia Transfused 1 unit with improvement likely GI blood loss continue IV ppi, GI consult, EGD Friday follow H&H Mechanical AVR INR 1.8 Hold coumadin, start Lovenox full dose Diabetes Insulin sliding scale hold metformin and actos diabetic diet Hypertension amlodipine, valsartan, metoprolol DVT prophylaxis-on Coumadin Full code The patient will need overnight stay pending EGD intervention on Friday and monitoring H&H Quality Stroke Does the patient have a stroke diagnosis?: No VTE Prior VTE?: No VTE Risk Level:: Medical - moderate - high VTE Device Contraindication: Treatment Not Indicated VTE Drug Contraindication: N/A - Med Ordered
[2024-07-17 16:22] LABS: Glucose, Whole Blood 97 mg/dL (60-115)
--- NOTE | 2024-07-17 18:20 | PC.NURSE ---
Pt ambulated in room and in garcia short distance. Pt becomes SOB with exertion. Denies pain
[2024-07-17 20:39] LABS: Glucose, Whole Blood 190 mg/dL (60-115)
[2024-07-17] MEDS: Mirtazapine 15 MG TABLET PO (21:03)
[2024-07-18 03:38] VITALS: BP 177/78; PULSE 73; RESP 16; TEMP 36.4; O2SAT 96
[2024-07-18] MEDS: Pantoprazole Sodium 40 MG/10 ML VIAL IVPUSH ×2 (05:58→16:05)
[2024-07-18 06:51] LABS: INTERNATIONAL NORM RATIO 1.9 (0.9-1.1); Prothrombin Time 21.6 SEC (10.9-12.4)
[2024-07-18 07:03] LABS: Alanine Aminotransferase 11 U/L (0-31); Albumin Level 3.2 g/dL (3.5-5.0); Alkaline Phosphatase 95 U/L (39-117); Anion Gap 13 (12-20); Aspartate Amino Transferase 20 U/L (5-31); Bilirubin Direct 0.1 mg/dL (0.0-0.5); Bilirubin Total 0.3 mg/dL (0.0-1.0); Blood Urea Nitrogen 13 mg/dL (9-16); Calcium 8.7 mg/dL (8.4-10.2); Carbon Dioxide 24 mmol/L (22-29); Chloride 111 mmol/L (96-108); Creatinine Clr Calc Pharmacy 45.7; Estimated Glomerular Filt Rate > 60; Glucose Random 133 mg/dL (60-115); Potassium 3.9 mmol/L (3.3-5.1); Sodium 144 mmol/L (135-145); Total Protein 6.2 g/dL (6.5-8.0)
[2024-07-18 08:00] VITALS: BP 184/83; PULSE 80; RESP 16; TEMP 36.3; O2SAT 96
[2024-07-18 08:10] LABS: Glucose, Whole Blood 120 mg/dL (60-115)
[2024-07-18] MEDS: Pioglitazone HCL 30 MG TABLET PO (08:11)
[2024-07-18] MEDS: Valsartan 160 MG TABLET PO (08:11)
[2024-07-18] MEDS: 0.9 % Sodium Chloride Flush 3 ML SYRINGE IVFLUSH ×3 (08:11→23:30)
[2024-07-18] MEDS: Metoprolol Tartrate 50 MG TABLET PO ×2 (08:11→22:53)
[2024-07-18] MEDS: amLODIPine Besylate 2.5 MG TABLET PO (08:11)
[2024-07-18 09:15] VITALS: BP 148/76; O2SAT 95
[2024-07-18] MEDS: Sodium Ferric Gluconat/Sucrose 125 MG in 0.9 % Sodium Chloride 100 ML 100 MG IV (09:16)
[2024-07-18] MEDS: Enoxaparin Sodium 80 MG/0.8 ML SYRINGE SUBCUT (10:34)
[2024-07-18 11:31] LABS: Glucose, Whole Blood 236 mg/dL (60-115)
[2024-07-18] MEDS: Insulin Lispro 100 UNIT/ML 3 ML VIAL SUBCUT (11:36)
--- NOTE | 2024-07-18 12:20 | P.PNIM_ITS ---
Subjective Subjective Date of Service: 07/18/24 Interval History: She was seen and evaluated this morning feels better overall BP elevated no fever or chills Hb stable Review of Systems Review of Systems: Yes all other systems are reviewed and are negative Physical Exam 2 Vital Signs: Vital Signs: Last Vital Signs Temp 97.4 F 07/18/24 08:00 Pulse 80 07/18/24 08:00 Resp 16 07/18/24 08:00 BP 184/83 H 07/18/24 08:00 Pulse Ox 96 07/18/24 08:00 O2 Del Method Nasal Cannula 07/18/24 08:00 O2 Flow Rate 2 07/18/24 08:00 BMI result Body Mass Index 33.7 Const: Other: Constitutional : interactive, not in distress Cardiovascular : no JVP, no lower extremity edema Respiratory : bilateral chest movement, not in resp distress Gastrointestinal: soft, lax, Non tender Skin : Warm, Dry Neurological : Alert & oriented , No focal deficit Objective Data Active Medications Acetaminophen (Acetaminophen 325 Mg Tablet) 650 mg PO Q6H PRN PRN Reason: Pain, Mild 1-3,fever,headache Last Admin: 07/16/24 15:47 Dose: 650 mg Documented By: AMBREEN Al Hydroxide/Mg Hydroxide (Magnesium Hydrox/Alum Hydrox 30 Ml Oral.Susp) 30 ml PO Q4H PRN PRN Reason: Heartburn Amlodipine Besylate (Amlodipine Besylate 2.5 Mg Tablet) 2.5 mg PO DAILY JUANITA; Protocol Last Admin: 07/18/24 08:11 Dose: 2.5 mg Documented By: GABRIELLA Bisacodyl (Bisacodyl 5 Mg Tablet.Dr) 10 mg PO ONCE ONE Stop: 07/18/24 13:01 Calcium Carbonate (Calcium Carbonate 750 Mg Tab.Chew) 750 mg PO Q4H PRN PRN Reason: Heartburn Dextrose (Dextrose 50 % 25 Gm/50 Ml Syringe) 25 gm IVPUSH Q15M PRN; Protocol PRN Reason: per Hypoglycemia Standing Ord. Enoxaparin Sodium (Enoxaparin Sodium 80 Mg/0.8 Ml Syringe) 80 mg 1 mg/kg (80 mg) SUBCUT Q12H JUANITA Last Admin: 07/18/24 10:34 Dose: 80 mg Documented By: GABRIELLA Glucose (Glucose Gel 15 Gm Gel..Gram.) 15 gm PO Q15M PRN; Protocol PRN Reason: per Hypoglycemia Standing Ord. Insulin Human Lispro (Insulin Lispro 100 Unit/Ml 3 Ml Vial) 0 unit SUBCUT QIDACHS [facility]; Protocol Last Admin: 07/18/24 11:36 Dose: 4 unit Documented By: GABRIELLA Magnesium Hydroxide (Milk Of Magnesia 30 Ml Oral.Susp) 30 ml PO DAILY PRN PRN Reason: Constipation Melatonin (Melatonin 3 Mg Tablet) 6 mg PO BEDTIME PRN PRN Reason: Insomnia Metoprolol Tartrate (Metoprolol Tartrate 50 Mg Tablet) 50 mg PO BID [facility]; Protocol Last Admin: 07/18/24 08:11 Dose: 50 mg Documented By: GABRIELLA Mirtazapine (Mirtazapine 15 Mg Tablet) 15 mg PO BEDTIME [facility] Last Admin: 07/17/24 21:03 Dose: 15 mg Documented By: VERONICA Ondansetron HCl (Ondansetron Hcl 4 Mg/2 Ml Vial) 4 mg IVPUSH Q8H PRN PRN Reason: Nausea and Vomiting Pantoprazole Sodium (Pantoprazole Sodium 40 Mg/10 Ml Vial) 40 mg IVPUSH BID@0630,1630 [facility] Last Admin: 07/18/24 05:58 Dose: 40 mg Documented By: VERONICA Pioglitazone HCl (Pioglitazone Hcl 30 Mg Tablet) 30 mg PO DAILY@0900 [facility] Last Admin: 07/18/24 08:11 Dose: 30 mg Documented By: GABRIELLA Polyethylene Glycol (Polyethylene Glycol 3350 17 Gm Powd.Pack) 17 gm PO DAILY PRN PRN Reason: Constipation Polyethylene Glycol/Electrolytes (Peg 3350/Na Sulf,Bicarb,Cl/Kcl 4,000 Ml Soln.Recon) 4,000 ml PO ONCE [facility] Sodium Chloride (0.9 % Sodium Chloride Flush 3 Ml Syringe) 3 ml IVFLUSH QSHIFT [facility] Last Admin: 07/18/24 08:11 Dose: 3 ml Documented By: GABRIELLA Valsartan (Valsartan 160 Mg Tablet) 160 mg PO DAILY@0900 [facility]; Protocol Last Admin: 07/18/24 08:11 Dose: 160 mg Documented By: GABRIELLA Labs 07/17/24 05:34 07/18/24 06:25 Labs: Laboratory Results - last 24 hr 02/07/17/24 07/18/24 16:18 20:32 06:25 PT 21.6 H INR 1.9 H Anion Gap 13 Estim Creat Clear Calc 45.7 Estimated GFR > 60 POC Glucose 97 190 H Random Glucose 133 H Calcium 8.7 Total Bilirubin 0.3 Direct Bilirubin 0.1 AST 20 ALT 11 Alkaline Phosphatase 95 Total Protein 6.2 L Albumin 3.2 L 07/18/24 07/18/24 08:02 11:27 PT INR Anion Gap Estim Creat Clear Calc Estimated GFR POC Glucose 120 H 236 H Random Glucose Calcium Total Bilirubin Direct Bilirubin AST ALT Alkaline Phosphatase Total Protein Albumin Assessment and Plan (1) Acute on chronic blood loss anemia: Status: Acute (2) On warfarin therapy: Status: Acute Plan 78F PMH mechanical AVR on coumadin, DM, htn, breast cancer, osteoarthritis, presented with shortness of breath, fatigue, dark stool and anemia Acute on chronic blood loss anemia Transfused 1 unit with improvement likely GI blood loss continue IV ppi, GI consult, EGD Friday follow H&H Mechanical AVR INR 1.8 Hold coumadin, continue Lovenox full dose Diabetes Insulin sliding scale hold metformin and actos diabetic diet Hypertension Elevated amlodipine, valsartan, metoprolol monitor DVT prophylaxis-on Coumadin Full code The patient will need overnight stay pending EGD intervention on Friday and monitoring H&H Quality Stroke Does the patient have a stroke diagnosis?: No VTE Prior VTE?: No VTE Risk Level:: Medical - moderate - high VTE Device Contraindication: Treatment Not Indicated VTE Drug Contraindication: N/A - Med Ordered
[2024-07-18] MEDS: bisacodyL 5 MG TABLET.DR 10 MG PO (14:04)
[2024-07-18] MEDS: PEG 3350/Na Sulf,Bicarb,Cl/KCL 4,000 ML SOLN.RECON 4000 ML PO (16:08)
[2024-07-18 16:09] LABS: Glucose, Whole Blood 87 mg/dL (60-115)
[2024-07-18 16:26] VITALS: BP 156/74; PULSE 80; RESP 16; TEMP 36.8; O2SAT 95
[2024-07-18 19:20] LABS: Glucose, Whole Blood 116 mg/dL (60-115)
[2024-07-18 19:32] VITALS: BP 174/79; PULSE 95; RESP 18; TEMP 36.2; O2SAT 96
[2024-07-18] MEDS: Mirtazapine 15 MG TABLET PO (22:53)
[2024-07-19] VITALS (8 sets, daily range): BP systolic 138–173; BP diastolic 48–82; PULSE 80–85; RESP 16–18; TEMP 36.3–37.3; O2SAT 94–98
[2024-07-19] MEDS: guaiFENesin 100 MG/5 ML 5 ML LIQUID PO ×2 (00:17→05:34)
[2024-07-19] MEDS: Pantoprazole Sodium 40 MG/10 ML VIAL IVPUSH (05:42)
[2024-07-19 05:51] LABS: MANUAL DIFF FLAG NO
[2024-07-19 05:57] LABS: Basophils Percent Auto 0.5 % (0-2); Eosinophils Absolute Auto 0.1 X10*3/uL (0.0-0.4); Eosinophils Percent Auto 2.1 % (0-4); Hematocrit 29.3 % (37.0-47.0); Hemoglobin 9.1 g/dl (12.0-16.0); Imm Gran Abs Auto 0.02 X10*3/uL (0.00-0.03); Imm Gran Pct Auto 0.4 % (0.0-0.4); Lymphocytes Absolute Auto 0.9 X10*3/uL (1.2-4.9); Lymphocytes Percent Auto 15.2 % (20-40); Mean Corpuscular HGB Conc 31.1 g/dl (31.0-35.0); Mean Corpuscular Volume 83.7 fL (80.0-98.0); Mean Platelet Volume 9.8 fL (9.4-12.3); Monocytes Absolute Auto 0.7 X10*3/uL (0.1-1.2); Neutrophils Absolute Auto 3.9 x10*3/uL (2.0-8.3); Neutrophils Percent Auto 69.8 % (45-73); Platelet Count 259 X10*3/uL (160-400); Red Cell Distribution Width 16.7 % (11.0-16.0); White Blood Count 5.6 X10*3/uL (4.8-10.8)
[2024-07-19 06:14] LABS: INTERNATIONAL NORM RATIO 1.3 (0.9-1.1); Prothrombin Time 14.9 SEC (10.9-12.4)
[2024-07-19 07:10] LABS: Glucose, Whole Blood 162 mg/dL (60-115)
[2024-07-19] MEDS: Pioglitazone HCL 30 MG TABLET PO (08:03)
[2024-07-19] MEDS: 0.9 % Sodium Chloride Flush 3 ML SYRINGE IVFLUSH (08:03)
[2024-07-19] MEDS: amLODIPine Besylate 2.5 MG TABLET PO (08:03)
[2024-07-19] MEDS: Valsartan 160 MG TABLET PO (08:03)
[2024-07-19] MEDS: Metoprolol Tartrate 50 MG TABLET PO (08:03)
[2024-07-19] MEDS: Insulin Lispro 100 UNIT/ML 3 ML VIAL SUBCUT (08:03)
[2024-07-19 11:34] LABS: Glucose, Whole Blood 116 mg/dL (60-115)
--- NOTE | 2024-07-19 12:45 | HO.ANESPROP2 ---
[facility] Active Problems Active Problems: All Active Problems Acute on chronic blood loss anemia (Acute) On warfarin therapy (Acute) Anemia (Acute) Acute upper GI bleed (Acute) Hypertension (Acute) Diabetes (Acute) Heart valve replaced (Acute) Occult GI bleeding (Acute) Supratherapeutic INR (Acute) COVID-19 (Acute) Past Medical History Medical History Breast cancer Diabetes Anticoagulated on Coumadin Hypertension Family History Family history of problems with anesthesia: No Surgical History Surgical History Heart valve replaced History of Problems with Anesthesia: No Social History Social History Household Members: Spouse and Family Housing: House Do you presently have visiting nurse or other home services: No Alcohol intake: never Patient Tobacco Use Status: Never used Tobacco service: No Meds Allergies Allergy/AdvReac Type Severity Reaction Status Date / Time No Known Allergies Allergy Verified 07/15/24 15:18 Active Medications: Current Medications Acetaminophen (Acetaminophen 325 Mg Tablet) 650 mg PO Q6H PRN PRN Reason: Pain, Mild 1-3,fever,headache Last Admin: 07/16/24 15:47 Dose: 650 mg Al Hydroxide/Mg Hydroxide (Magnesium Hydrox/Alum Hydrox 30 Ml Oral.Susp) 30 ml PO Q4H PRN PRN Reason: Heartburn Amlodipine Besylate (Amlodipine Besylate 2.5 Mg Tablet) 2.5 mg PO DAILY JUANITA; Protocol Last Admin: 07/19/24 08:03 Dose: 2.5 mg Calcium Carbonate (Calcium Carbonate 750 Mg Tab.Chew) 750 mg PO Q4H PRN PRN Reason: Heartburn Dextrose (Dextrose 50 % 25 Gm/50 Ml Syringe) 25 gm IVPUSH Q15M PRN; Protocol PRN Reason: per Hypoglycemia Standing Ord. Enoxaparin Sodium (Enoxaparin Sodium 80 Mg/0.8 Ml Syringe) 80 mg 1 mg/kg (80 mg) SUBCUT Q12H JUANITA Last Admin: 07/18/24 22:54 Dose: Not Given Glucose (Glucose Gel 15 Gm Gel..Gram.) 15 gm PO Q15M PRN; Protocol PRN Reason: per Hypoglycemia Standing Ord. Guaifenesin (Guaifenesin 100 Mg/5 Ml 5 Ml Liquid) 5 ml PO Q4H PRN PRN Reason: Cough Last Admin: 07/19/24 05:34 Dose: 5 ml Insulin Human Lispro (Insulin Lispro 100 Unit/Ml 3 Ml Vial) 0 unit SUBCUT QIDACHS [facility]; Protocol Last Admin: 07/19/24 11:38 Dose: Not Given Magnesium Hydroxide (Milk Of Magnesia 30 Ml Oral.Susp) 30 ml PO DAILY PRN PRN Reason: Constipation Melatonin (Melatonin 3 Mg Tablet) 6 mg PO BEDTIME PRN PRN Reason: Insomnia Metoprolol Tartrate (Metoprolol Tartrate 50 Mg Tablet) 50 mg PO BID [facility]; Protocol Last Admin: 07/19/24 08:03 Dose: 50 mg Mirtazapine (Mirtazapine 15 Mg Tablet) 15 mg PO BEDTIME [facility] Last Admin: 07/18/24 22:53 Dose: 15 mg Naloxone HCl (Naloxone Hcl 0.4 Mg/Ml Vial) 0.04 mg IVPUSH Q5M PRN PRN Reason: Excessive sedation or RR < 8 Ondansetron HCl (Ondansetron Hcl 4 Mg/2 Ml Vial) 4 mg IVPUSH Q8H PRN PRN Reason: Nausea and Vomiting Pioglitazone HCl (Pioglitazone Hcl 30 Mg Tablet) 30 mg PO DAILY@0900 [facility] Last Admin: 07/19/24 08:03 Dose: 30 mg Polyethylene Glycol (Polyethylene Glycol 3350 17 Gm Powd.Pack) 17 gm PO DAILY PRN PRN Reason: Constipation Polyethylene Glycol/Electrolytes (Peg 3350/Na Sulf,Bicarb,Cl/Kcl 4,000 Ml Soln.Recon) 4,000 ml PO ONCE [facility] Last Admin: 07/18/24 16:08 Dose: 4,000 ml Sodium Chloride (0.9 % Sodium Chloride Flush 3 Ml Syringe) 3 ml IVFLUSH QSHIFT [facility] Last Admin: 07/19/24 08:03 Dose: 3 ml Valsartan (Valsartan 160 Mg Tablet) 160 mg PO DAILY@0900 [facility]; Protocol Last Admin: 07/19/24 08:03 Dose: 160 mg Home Medications ?Medication ?Instructions ?Recorded ?Confirmed ?Last Taken ?Type atorvastatin 40 mg tablet 40 mg PO DAILY@0900 06/12/24 07/16/24 07/15/24 History insulin glargine 100 unit/mL (3 36 unit subcut DAILY@0906/12/24 07/16/24 07/15/24 History mL) subcutaneous pen (Lantus Solostar U-100 Insulin) metformin 850 mg tablet 850 mg PO DAILY@2100 06/12/24 07/16/24 07/14/24 History metoprolol tartrate 50 mg tablet 50 mg PO BID 06/12/24 07/16/24 07/15/24 History pioglitazone 30 mg tablet 30 mg PO DAILY@0906/12/24 07/16/24 07/15/24 History valsartan 160 mg tablet 160 mg PO DAILY@0906/12/24 07/16/24 07/15/24 History warfarin 5 mg tablet 7.5 mg PO TUTH@1800 06/12/24 07/16/24 07/13/24 History mirtazapine 15 mg tablet 15 mg PO BEDTIME 07/16/24 07/16/24 07/14/24 History pantoprazole 40 mg tablet,delayed 40 mg PO DAILY@0630 07/16/24 07/16/24 07/15/24 History release warfarin 5 mg tablet 5 mg PO SUMOWEFRSA 07/16/24 07/16/24 07/14/24 History Exam Height,Weight and Vital Signs: Height 4 ft 11 in Weight 75.8 kg Last Vital Signs Temp 97.5 F 07/19/24 11:55 Pulse 82 07/19/24 11:55 Resp 18 07/19/24 11:55 BP 173/66 H 07/19/24 11:55 Pulse Ox 96 07/19/24 11:55 O2 Del Method Room Air 07/19/24 11:55 O2 Flow Rate 2 07/18/24 08:00 Pertinent Lab Results Pertinent Lab Results: Laboratory Tests 07/15/24 07/15/24 07/16/24 15:27 22:57 00:01 WBC 5.8 RBC 3.11 L D Hgb 8.1 L D Hct 27.0 L MCV 86.8 MCH 26.0 L MCHC 30.0 L RDW 16.7 H Plt Count 259 MPV 9.4 Immature Gran % (Auto) 0.5 H Neut % (Auto) 60.0 Lymph % (Auto) 24.5 [place] % (Auto) 11.4 H Eos % (Auto) 2.9 Baso % (Auto) 0.7 Lymph # (Auto) 1.4 [place] # (Auto) 0.7 Eos # (Auto) 0.2 Baso # (Auto) 0.0 Abs Immat Gran (auto) 0.03 Absolute Neuts (auto) 3.5 Absolute Nucleated RBC 0.000 Nucleated RBC % (auto) 0.0 PT 24.2 H INR 2.1 H APTT 39.3 H D Sodium 143 Potassium 4.3 Chloride 113 H Carbon Dioxide 24 Anion Gap 10 L BUN 20 H Creatinine 1.01 Estim Creat Clear Calc 40.4 Estimated GFR 53 POC Glucose Random Glucose 348 H Calcium 8.8 Iron TIBC % Saturation Unsat Iron Binding Total Bilirubin 0.2 Direct Bilirubin AST 25 ALT 16 Alkaline Phosphatase 102 Total Protein 6.9 Albumin 3.7 Stool Occult Blood NEGATIVE Blood Type O Positive Antibody Screen NEGATIVE Crossmatch See Detail 07/16/24 07/16/24 07/16/24 00:07 03:07 03:39 WBC RBC Hgb 8.5 L Hct 27.6 L MCV MCH MCHC RDW Plt Count MPV Immature Gran % (Auto) Neut % (Auto) Lymph % (Auto) [place] % (Auto) Eos % (Auto) Baso % (Auto) Lymph # (Auto) [place] # (Auto) Eos # (Auto) Baso # (Auto) Abs Immat Gran (auto) Absolute Neuts (auto) Absolute Nucleated RBC Nucleated RBC % (auto) PT INR APTT Sodium Potassium Chloride Carbon Dioxide Anion Gap BUN Creatinine Estim Creat Clear Calc Estimated GFR POC Glucose 52 L* 96 Random Glucose Calcium Iron TIBC % Saturation Unsat Iron Binding Total Bilirubin Direct Bilirubin AST ALT Alkaline Phosphatase Total Protein Albumin Stool Occult Blood Blood Type Antibody Screen Crossmatch 07/16/24 07/16/24 07/16/24 04:52 07:02 12:10 WBC 6.5 RBC 3.23 L Hgb 8.5 L Hct 27.4 L MCV 84.8 MCH 26.3 L MCHC 31.0 RDW 16.9 H Plt Count 254 MPV 9.4 Immature Gran % (Auto) Neut % (Auto) Lymph % (Auto) [place] % (Auto) Eos % (Auto) Baso % (Auto) Lymph # (Auto) [place] # (Auto) Eos # (Auto) Baso # (Auto) Abs Immat Gran (auto) Absolute Neuts (auto) Absolute Nucleated RBC 0.000 Nucleated RBC % (auto) 0.0 PT INR APTT Sodium 143 Potassium 4.0 Chloride 113 H Carbon Dioxide 23 Anion Gap 11 L BUN 14 Creatinine 0.75 Estim Creat Clear Calc 54.4 Estimated GFR > 60 POC Glucose 97 82 Random Glucose 146 H Calcium 8.8 Iron TIBC % Saturation Unsat Iron Binding Total Bilirubin 0.4 Direct Bilirubin AST 22 ALT 12 Alkaline Phosphatase 92 Total Protein 6.1 L Albumin 3.3 L Stool Occult Blood Blood Type Antibody Screen Crossmatch 07/16/24 07/16/24 07/16/24 17:03 18:59 20:15 WBC RBC Hgb Hct MCV MCH MCHC RDW Plt Count MPV Immature Gran % (Auto) Neut % (Auto) Lymph % (Auto) [place] % (Auto) Eos % (Auto) Baso % (Auto) Lymph # (Auto) [place] # (Auto) Eos # (Auto) Baso # (Auto) Abs Immat Gran (auto) Absolute Neuts (auto) Absolute Nucleated RBC Nucleated RBC % (auto) PT 20.0 H INR 1.7 H APTT Sodium Potassium Chloride Carbon Dioxide Anion Gap BUN Creatinine Estim Creat Clear Calc Estimated GFR POC Glucose 85 81 Random Glucose Calcium Iron TIBC % Saturation Unsat Iron Binding Total Bilirubin Direct Bilirubin AST ALT Alkaline Phosphatase Total Protein Albumin Stool Occult Blood Blood Type Antibody Screen Crossmatch 07/17/24 07/17/24 07/17/24 05:34 07:46 11:34 WBC 7.3 RBC 3.54 L Hgb 9.2 L Hct 30.4 L MCV 85.9 MCH 26.0 L MCHC 30.3 L RDW 16.7 H Plt Count 287 MPV 10.1 Immature Gran % (Auto) 0.3 Neut % (Auto) 72.5 Lymph % (Auto) 13.4 L [place] % (Auto) 10.5 Eos % (Auto) 2.6 Baso % (Auto) 0.7 Lymph # (Auto) 1.0 L [place] # (Auto) 0.8 Eos # (Auto) 0.2 Baso # (Auto) 0.1 Abs Immat Gran (auto) 0.02 Absolute Neuts (auto) 5.3 Absolute Nucleated RBC 0.000 Nucleated RBC % (auto) 0.0 PT 21.3 H INR 1.8 H APTT Sodium 143 Potassium 4.8 Chloride 110 H Carbon Dioxide 27 Anion Gap 11 L BUN 11 Creatinine 0.80 Estim Creat Clear Calc 51.4 Estimated GFR > 60 POC Glucose 107 245 H Random Glucose 110 Calcium 9.0 Iron 161 H TIBC 258 % Saturation 62 H Unsat Iron Binding 97 Total Bilirubin Direct Bilirubin AST ALT Alkaline Phosphatase Total Protein Albumin Stool Occult Blood Blood Type Antibody Screen Crossmatch 07/17/24 07/17/24 07/18/24 16:18 20:32 06:25 WBC RBC Hgb Hct MCV MCH MCHC RDW Plt Count MPV Immature Gran % (Auto) Neut % (Auto) Lymph % (Auto) [place] % (Auto) Eos % (Auto) Baso % (Auto) Lymph # (Auto) [place] # (Auto) Eos # (Auto) Baso # (Auto) Abs Immat Gran (auto) Absolute Neuts (auto) Absolute Nucleated RBC Nucleated RBC % (auto) PT 21.6 H INR 1.9 H APTT Sodium 144 Potassium 3.9 Chloride 111 H Carbon Dioxide 24 Anion Gap 13 BUN 13 Creatinine 0.90 Estim Creat Clear Calc 45.7 Estimated GFR > 60 POC Glucose 97 190 H Random Glucose 133 H Calcium 8.7 Iron TIBC % Saturation Unsat Iron Binding Total Bilirubin 0.3 Direct Bilirubin 0.1 AST 20 ALT 11 Alkaline Phosphatase 95 Total Protein 6.2 L Albumin 3.2 L Stool Occult Blood Blood Type Antibody Screen Crossmatch 07/18/24 07/18/24 07/18/24 08:02 11:27 16:01 WBC RBC Hgb Hct MCV MCH MCHC RDW Plt Count MPV Immature Gran % (Auto) Neut % (Auto) Lymph % (Auto) [place] % (Auto) Eos % (Auto) Baso % (Auto) Lymph # (Auto) [place] # (Auto) Eos # (Auto) Baso # (Auto) Abs Immat Gran (auto) Absolute Neuts (auto) Absolute Nucleated RBC Nucleated RBC % (auto) PT INR APTT Sodium Potassium Chloride Carbon Dioxide Anion Gap BUN Creatinine Estim Creat Clear Calc Estimated GFR POC Glucose 120 H 236 H 87 Random Glucose Calcium Iron TIBC % Saturation Unsat Iron Binding Total Bilirubin Direct Bilirubin AST ALT Alkaline Phosphatase Total Protein Albumin Stool Occult Blood Blood Type Antibody Screen Crossmatch 07/18/24 07/19/24 07/19/24 19:15 05:23 07:02 WBC 5.6 RBC 3.50 L Hgb 9.1 L Hct 29.3 L MCV 83.7 MCH 26.0 L MCHC 31.1 RDW 16.7 H Plt Count 259 MPV 9.8 Immature Gran % (Auto) 0.4 Neut % (Auto) 69.8 Lymph % (Auto) 15.2 L [place] % (Auto) 12.0 H Eos % (Auto) 2.1 Baso % (Auto) 0.5 Lymph # (Auto) 0.9 L [place] # (Auto) 0.7 Eos # (Auto) 0.1 Baso # (Auto) 0.0 Abs Immat Gran (auto) 0.02 Absolute Neuts (auto) 3.9 Absolute Nucleated RBC 0.000 Nucleated RBC % (auto) 0.0 PT 14.9 H D INR 1.3 H APTT Sodium Potassium Chloride Carbon Dioxide Anion Gap BUN Creatinine Estim Creat Clear Calc Estimated GFR POC Glucose 116 H 162 H Random Glucose Calcium Iron TIBC % Saturation Unsat Iron Binding Total Bilirubin Direct Bilirubin AST ALT Alkaline Phosphatase Total Protein Albumin Stool Occult Blood Blood Type Antibody Screen Crossmatch 07/19/24 11:28 WBC RBC Hgb Hct MCV MCH MCHC RDW Plt Count MPV Immature Gran % (Auto) Neut % (Auto) Lymph % (Auto) [place] % (Auto) Eos % (Auto) Baso % (Auto) Lymph # (Auto) [place] # (Auto) Eos # (Auto) Baso # (Auto) Abs Immat Gran (auto) Absolute Neuts (auto) Absolute Nucleated RBC Nucleated RBC % (auto) PT INR APTT Sodium Potassium Chloride Carbon Dioxide Anion Gap BUN Creatinine Estim Creat Clear Calc Estimated GFR POC Glucose 116 H Random Glucose Calcium Iron TIBC % Saturation Unsat Iron Binding Total Bilirubin Direct Bilirubin AST ALT Alkaline Phosphatase Total Protein Albumin Stool Occult Blood Blood Type Antibody Screen Crossmatch Airway Mallampati Class: II TM Dist: >3cm Neck ROM: Full Heart: rrr Lungs: cta Assessment and Plan Assessment Anesthesia Assessment: Anesthesia Plan Discussed and Chart Reviewed Final Anesthetic Review Family History of Problems with Anesthesia: No History of Problems with Anesthesia: No NPO: Yes ASA Class: III Final Preanesthetic Review: No Changes in Pt Med Stat, Meds/Allgs Chart Reviewed and Consent Obtained/Reviewed Patient Risk: Intermediate Procedure Risk: Intermediate Anesthetic Plan Anesthetic Plan: MAC: Disposition: Standard PACU
--- NOTE | 2024-07-19 12:54 | MHC.SHP ---
Pre-Procedural Eval Section A - 24 Hr Update-Section A only Date of Service: 07/19/24 The patient is an INPATIENT: Yes Changes since office visit: Yes New Medical Problems, Yes Changes in Medication and Yes Patient answered all questions; No Cold of Flu in the past 2 weeks The patient has been examined within 24 hours of the surgical procedure. The History & Physical has been completed within 30 days and I have reviewed it.: Yes Section B - Complete if H&P > 30 days Chief Complaint: acute blood loss anemia , gib Allergies: Allergies Allergy/AdvReac Type Severity Reaction Status Date / Time No Known Allergies Allergy Verified 07/15/24 15:18 Plan Diagnosis/Plan: Unchanged I have reviewed the history and physical and performed a pertinent physical examination on my patient. No changes have occurred unless specified. Time Spent With Patient Time: Total time managing care of this patient today ____ minutes.
--- NOTE | 2024-07-19 13:07 | HO.OPN-COLON ---
Colonoscopy Operative Note Operative Note Date of Service: 07/19/24 Narrative: FLEXIBLE TRANSORAL UPPER GASTROINTESTINAL ENDOSCOPY WITH BIOPSIES AND COLONOSCOPY TILL CECUM WITH SNARE POLYPECOTMY, HEMOCLIP PLACEMENT AND APC OF ASCENDING COLON AVM Pre-op diagnosis: acute on chronic anemia, GI bleeding Post-op diagnosis: Gastritis, Colon Polyps, Diverticulosis, hemorrhoids Endoscopist:? Goldie Moreno MD Anesthesia:?MAC UPPER ENDOSCOPY Consent: Indications for the procedure and potential complications of bleeding, perforation, reaction to medications and missed diagnosis were discussed with the patient and informed consent was obtained. Instrument: Olympus GIF H 190 mid size upper endoscope Monitoring: Vital signs and clinical assessment, continuous EKG monitoring, Pulse oximetry, Carbon Dioxide monitoring and blood pressure monitoring were done throughout the procedure. Procedure: The patient was placed in the left lateral decubitis position and pre-procedure medications were administered and a bite block was placed. The endoscope was inserted into the mouth and advanced under direct vision to the third part of duodenum. A careful inspection was made as the upper endoscope was withdrawn including a retroflexed examination of the proximal stomach; Findings and interventions are described below. Findings: Larynx: Normal Esophagus: GE junction at 35 cms, small hiatal hernia 35 to 37 cms. No esophagitis or Mckeon's. Stomach: Moderate diffuse gastric erythema - biopsies were obtained from the antrum. Grade 2 flap valve on retroflexed examination of the cardia. Duodenum: Normal bulb and descending duodenum Intervention: Biopsies as noted above COLONOSCOPY PROCEDURE NOTE Instrument: Olympus PCF H 190 L variable stiffness pediatric colonoscope Monitoring: Vital signs and clinical assessment, intermittent blood pressure monitoring, continuous EKG monitoring, Pulse oximetry and Carbon Dioxide monitoring were done throughout the procedure. Please see anesthesia flowsheet. Colon withdrawl time was 25 minutes. Procedure: The patient was placed in the left lateral decubitis position and pre-procedure medications were administered. After a digital rectal examination of the ano-rectum, the video colonoscope was inserted into the rectum and advanced through the colon to the cecum. The colonoscope was slowly withdrawn in a retrograde panoramic fashion and the colon mucosa was carefully examined including a retroflexed view of the rectum. Findings and interventions are described below. Procedure Difficulty: Colon was long and tortuous and there was spasm and some loop formation. Pt was placed in the supine position to intubate the cecum. Findings: Terminal Ileum: Not evaluated Cecum: ? nodule at appendicular orifice - biopsies were obtained. Ascending Colon: A 1.5 cms non-bleeding AVM in the proximal AC - ablated with APC A 10 mm sessile polyp in the distal AC - removed with a hot snare. A 12-15 mm sessile polyp - removed with hot snare. Polypectomy site was closed with 1 hemoclip. Transverse Colon: Normal Descending Colon: Normal Sigmoid Colon: A 7-8 mm sessile polyp - removed with a cold snare. Moderate diverticulosis Rectum: A 9-10 mm sessile polyp - removed with a hot snare. Ano-rectum: Moderate internal hemorrhoids Colon preparation: Good after copious irrigation. [place] Bowel Preparation Scale Right colon; 2 Transverse colon: 2 Left colon; 2 (0 = Unprepared colon segment with mucosa not seen due to solid stool that cannot be cleared. 1 = Portion of mucosa of the colon segment seen, but other areas of the colon segment not well seen due to staining, residual stool and/or opaque liquid. 2 = Minor amount of residual staining, small fragments of stool and/or opaque liquid, but mucosa of colon segment seen well. 3 = Entire mucosa of colon segment seen well with no residual staining, small fragments of stool or opaque liquid) Impression and Post Procedure Diagnosis: Endoscopy Findings: ESOPHAGUS: Small hiatal hernia STOMACH: Moderate gastritis DUODENUM: Normal Colonoscopy Findings: Four small to medium sized polyps were removed Moderate diverticulosis seen in the left colon Moderate hemorrhoids on retroflexed exam. Anemia due to GI blood loss from ascending colon AVM and colon polyps Plan: Pt can resume Lovenox tonight. Resume warfarin on 07/21/24. If she has recurrent anemia, Capsule endoscopy to rule out small bowel source of anemia Repeat Colonoscopy is not recommended given advanced age and co-morbidities. Above findings were reviewed with the patient and relevant handouts were given and the discharge area. BIOPSIES SHOWED: A. Stomach, antrum, biopsy: Antral-type mucosa with moderate chronic, focally active, inflammation and intestinal metaplasia; negative for dysplasia; no Helicobacter organisms seen. B. Colon, appendiceal orifice, biopsy: Colonic mucosa with mild surface hyperplastic changes; otherwise within normal limits. C. Colon, ascending, polypectomy: Tubular adenoma; negative for high-grade dysplasia or carcinoma. D. Colon, sigmoid, polypectomy: Fragments of tubular adenoma; negative for high-grade dysplasia or carcinoma. E. Rectum, polypectomy: Fragments of tubular adenoma; negative for high-grade dysplasia or carcinoma.
--- NOTE | 2024-07-19 13:35 | MHC.CM.PN ---
Addendum entered by Danita Hernandez RN 07/19/24 15:26: Patient medically cleared for dc home w/ services. Daughter in law Violeta will transport. IMM delivered. Original Note: Per MD rounds patient not medically cleared for dc. PT rec home w/ services. Patient is active w/ [facility]. CM will continue to follow.
--- NOTE | 2024-07-19 14:02 | HO.PM.IMPN ---
Subjective Subjective Date of Service: 07/19/24 Interval History: She was seen and evaluated this morning feels better overall BP elevated no fever or chills Hb stable Review of Systems Review of Systems: Yes all other systems are reviewed and are negative Physical Exam Vital Signs: Vital Signs: Last Vital Signs Temp 97.5 F 07/19/24 11:55 Pulse 82 07/19/24 11:55 Resp 18 07/19/24 11:55 BP 173/66 H 07/19/24 11:55 Pulse Ox 96 07/19/24 11:55 O2 Del Method Room Air 07/19/24 11:55 O2 Flow Rate 2 07/18/24 08:00 BMI result Body Mass Index 33.7 Const: Other: Constitutional : interactive, not in distress Cardiovascular : no JVP, no lower extremity edema Respiratory : bilateral chest movement, not in resp distress Gastrointestinal: soft, lax, Non tender Skin : Warm, Dry Neurological : Alert & oriented , No focal deficit Objective Data Active Medications Acetaminophen (Acetaminophen 325 Mg Tablet) 650 mg PO Q6H PRN PRN Reason: Pain, Mild 1-3,fever,headache Last Admin: 07/16/24 15:47 Dose: 650 mg Documented By: AMBREEN Al Hydroxide/Mg Hydroxide (Magnesium Hydrox/Alum Hydrox 30 Ml Oral.Susp) 30 ml PO Q4H PRN PRN Reason: Heartburn Amlodipine Besylate (Amlodipine Besylate 2.5 Mg Tablet) 2.5 mg PO DAILY [facility]; Protocol Last Admin: 07/19/24 08:03 Dose: 2.5 mg Documented By: IGSSELLE Calcium Carbonate (Calcium Carbonate 750 Mg Tab.Chew) 750 mg PO Q4H PRN PRN Reason: Heartburn Dextrose (Dextrose 50 % 25 Gm/50 Ml Syringe) 25 gm IVPUSH Q15M PRN; Protocol PRN Reason: per Hypoglycemia Standing Ord. Enoxaparin Sodium (Enoxaparin Sodium 80 Mg/0.8 Ml Syringe) 80 mg 1 mg/kg (80 mg) SUBCUT Q12H JUANITA Last Admin: 07/18/24 22:54 Dose: Not Given Documented By: FRANCISCO Non-Admin Reason: future hold Glucose (Glucose Gel 15 Gm Gel..Gram.) 15 gm PO Q15M PRN; Protocol PRN Reason: per Hypoglycemia Standing Ord. Guaifenesin (Guaifenesin 100 Mg/5 Ml 5 Ml Liquid) 5 ml PO Q4H PRN PRN Reason: Cough Last Admin: 07/19/24 05:34 Dose: 5 ml Documented By: FRANCISCO Insulin Human Lispro (Insulin Lispro 100 Unit/Ml 3 Ml Vial) 0 unit SUBCUT QIDACHS [facility]; Protocol Last Admin: 07/19/24 11:38 Dose: Not Given Documented By: GISSELLE Non-Admin Reason: No Insulin Coverage Magnesium Hydroxide (Milk Of Magnesia 30 Ml Oral.Susp) 30 ml PO DAILY PRN PRN Reason: Constipation Melatonin (Melatonin 3 Mg Tablet) 6 mg PO BEDTIME PRN PRN Reason: Insomnia Metoprolol Tartrate (Metoprolol Tartrate 50 Mg Tablet) 50 mg PO BID [facility]; Protocol Last Admin: 07/19/24 08:03 Dose: 50 mg Documented By: GISSELLE Mirtazapine (Mirtazapine 15 Mg Tablet) 15 mg PO BEDTIME [facility] Last Admin: 07/18/24 22:53 Dose: 15 mg Documented By: FRANCISCO Naloxone HCl (Naloxone Hcl 0.4 Mg/Ml Vial) 0.04 mg IVPUSH Q5M PRN PRN Reason: Excessive sedation or RR < 8 Ondansetron HCl (Ondansetron Hcl 4 Mg/2 Ml Vial) 4 mg IVPUSH Q8H PRN PRN Reason: Nausea and Vomiting Pioglitazone HCl (Pioglitazone Hcl 30 Mg Tablet) 30 mg PO DAILY@0900 [facility] Last Admin: 07/19/24 08:03 Dose: 30 mg Documented By: GISSELLE Polyethylene Glycol (Polyethylene Glycol 3350 17 Gm Powd.Pack) 17 gm PO DAILY PRN PRN Reason: Constipation Polyethylene Glycol/Electrolytes (Peg 3350/Na Sulf,Bicarb,Cl/Kcl 4,000 Ml Soln.Recon) 4,000 ml PO ONCE [facility] Last Admin: 07/18/24 16:08 Dose: 4,000 ml Documented By: GABRIELLA Sodium Chloride (0.9 % Sodium Chloride Flush 3 Ml Syringe) 3 ml IVFLUSH QSHIFT [facility] Last Admin: 07/19/24 08:03 Dose: 3 ml Documented By: GISSELLE Valsartan (Valsartan 160 Mg Tablet) 160 mg PO DAILY@0900 [facility]; Protocol Last Admin: 07/19/24 08:03 Dose: 160 mg Documented By: GISSELLE Labs 07/19/24 05:23 07/18/24 06:25 Labs: Laboratory Results - last 24 hr 07/18/24 07/18/24 07/19/24 16:01 19:15 05:23 MCV 83.7 MCH 26.0 L MCHC 31.1 RDW 16.7 H Plt Count 259 MPV 9.8 Immature Gran % (Auto) 0.4 Neut % (Auto) 69.8 Lymph % (Auto) 15.2 L [place] % (Auto) 12.0 H Eos % (Auto) 2.1 Baso % (Auto) 0.5 Lymph # (Auto) 0.9 L [place] # (Auto) 0.7 Eos # (Auto) 0.1 Baso # (Auto) 0.0 Abs Immat Gran (auto) 0.02 Absolute Neuts (auto) 3.9 Absolute Nucleated RBC 0.000 Nucleated RBC % (auto) 0.0 PT 14.9 H D INR 1.3 H POC Glucose 87 116 H 07/19/24 07/19/24 07:02 11:28 MCV MCH MCHC RDW Plt Count MPV Immature Gran % (Auto) Neut % (Auto) Lymph % (Auto) [place] % (Auto) Eos % (Auto) Baso % (Auto) Lymph # (Auto) [place] # (Auto) Eos # (Auto) Baso # (Auto) Abs Immat Gran (auto) Absolute Neuts (auto) Absolute Nucleated RBC Nucleated RBC % (auto) PT INR POC Glucose 162 H 116 H Assessment and Plan (1) Acute on chronic blood loss anemia: Status: Acute (2) On warfarin therapy: Status: Acute Plan 78F PMH mechanical AVR on coumadin, DM, htn, breast cancer, osteoarthritis, presented with shortness of breath, fatigue, dark stool and anemia Acute on chronic blood loss anemia Transfused 1 unit with improvement Hb of 9.1 continue IV ppi, GI consult, EGD & Colonoscopy today follow H&H Mechanical AVR INR 1.3 restart coumadin, continue Lovenox full dose upon discharge Diabetes Insulin sliding scale hold metformin and actos diabetic diet Hypertension Elevated amlodipine, valsartan, metoprolol monitor DVT prophylaxis-on Coumadin Full code The patient will need overnight stay pending EGD and Colonoscopy Quality Stroke Does the patient have a stroke diagnosis?: No VTE Prior VTE?: No VTE Risk Level:: Medical - moderate - high VTE Device Contraindication: Treatment Not Indicated VTE Drug Contraindication: N/A - Med Ordered
--- NOTE | 2024-07-19 15:11 | PM.DS ---
DS: Providers Provider Date of Service: 07/19/24 Date of admission: 07/16/24 01:30 Date of discharge: 07/19/24 Primary care physician: Vinod Reynolds MD Consults: 07/16/24 04:08 Consult to Gastroenterology Routine Consulting Provider: Raven Royal Reason for consultation: gib, acute blood loss anemia Has provider been notified: No DS: Diagnosis Discharge Diagnosis (1) Acute on chronic blood loss anemia: Status: Acute (2) On warfarin therapy: Status: Acute (3) Acute upper GI bleed: Status: Acute DS: Summary Hospital Course Hospital Course: Admission note HPI 78-year-old?female Montenegrin speaking?patient with past medical history of diabetes, hypertension, mechanical aortic valve on chronic Coumadin, small non bleeding angioectasia in the fundus ablated 2018, history breast cancer. Patient was admitted here on 06/12 to 06/16 for covid related respiatory failure and that time had gib with anemia was transfused with good effect and the plan was to have EGD done on outpatient basis. She was admitted at [facility] on 06/22 and discharged the next day for syncope attributed to meds related low blood pressure. She presents today with similar complaint of fatigue, sob with exertion, dizziness and having been having blood in the stool for nearly 1 week now. Her hamotocrit is 27, danyelle from 33 when last checked on 06/16. Stool occult is negative. INR is 2. She is being transfused 1 unit. Hospital course The patient was evaluated for acute on chronic blood loss anemia with hemoglobin of 8.5 on admission requiring 1 unit transfusion with good response As Hb improved to 9.1. The patient was kept on IV Pantoprazole and evaluated by GI team who did EGD & Colonoscopy showing mild gastritis and AVM in colon. recommended outpatient follow up if recurrent anemia for capsule endoscopy. To be discharged on Pantoprazole and follow with dr Moreno from GI as needed. For history of Mechanical AVR the Warfarin was stopped and her INR trended down to 1.3 as she was placed on Lovenox full dose upon discharge and restart Warfarin on Friday. Discharge plan Hold Warfarin, Restart it on Friday Take Lovenox injections every 12 hours until INR >[address] Moreno as outpatient Continue Pantoprazole Time Attestation Discharge Coordination Time (in mins): 42 Quality: Safe Use of Opioids Does Pt have an Active Cancer Diagnosis on the Problem List?: No Quality: Stroke Does the patient have a stroke diagnosis?: No Physical Exam Vital Signs: Vital Signs: Last Vital Signs Temp 97.7 F 07/19/24 15:03 Pulse 80 07/19/24 15:03 Resp 18 07/19/24 15:03 BP 143/79 H 07/19/24 15:03 Pulse Ox 95 07/19/24 15:03 O2 Del Method Room Air 07/19/24 15:03 O2 Flow Rate 2 07/18/24 08:00 BMI result Body Mass Index 33.7 Const: Other: Constitutional : interactive, not in distress Cardiovascular : no JVP, no lower extremity edema Respiratory : bilateral chest movement, not in resp distress Gastrointestinal: soft, lax, Non tender Skin : Warm, Dry Neurological : Alert & oriented , No focal deficit DS: Data Data Completed and Pending Completed studies during hospitalization [Text1]: Procedures Transfusion of Nonautologous Red Blood Cells into Peripheral Vein, Percutaneous Approach (06/12/24) Pending studies at discharge: Pending at discharge 07/19/24 13:08 Surgical [PTH] Routine Labs on day of discharge: Laboratory Results - last 24 hr 07/18/24 07/18/24 07/19/24 16:01 19:15 05:23 WBC 5.6 RBC 3.50 L Hgb 9.1 L Hct 29.3 L MCV 83.7 MCH 26.0 L MCHC 31.1 RDW 16.7 H Plt Count 259 MPV 9.8 Immature Gran % (Auto) 0.4 Neut % (Auto) 69.8 Lymph % (Auto) 15.2 L [place] % (Auto) 12.0 H Eos % (Auto) 2.1 Baso % (Auto) 0.5 Lymph # (Auto) 0.9 L [place] # (Auto) 0.7 Eos # (Auto) 0.1 Baso # (Auto) 0.0 Abs Immat Gran (auto) 0.02 Absolute Neuts (auto) 3.9 Absolute Nucleated RBC 0.000 Nucleated RBC % (auto) 0.0 PT 14.9 H D INR 1.3 H POC Glucose 87 116 H 07/19/24 07/19/24 07:02 11:28 WBC RBC Hgb Hct MCV MCH MCHC RDW Plt Count MPV Immature Gran % (Auto) Neut % (Auto) Lymph % (Auto) [place] % (Auto) Eos % (Auto) Baso % (Auto) Lymph # (Auto) [place] # (Auto) Eos # (Auto) Baso # (Auto) Abs Immat Gran (auto) Absolute Neuts (auto) Absolute Nucleated RBC Nucleated RBC % (auto) PT INR POC Glucose 162 [address] scan - abdomen: My impression: CXR XR/XR chest 1V IMPRESSION: 1. Resolution of previously seen hazy interstitial opacities, likely representing resolved interstitial edema versus atypical infection. Currently, no active lung disease. Discharge Plan Discharge Anticipated Discharge Date/Time: 07/19/24 14:59 Patient Disposition: Home Health Service Discharge Diagnosis: Gastritis Polyp in colon Referrals: Vinod Reynolds MD [Primary Care Provider] - 1 Week Discharge Medications: New enoxaparin 80 mg/0.8 mL Syringe 80 mg subcut Q12H 5 Days Qty: 8 0RF amlodipine 5 mg Tablet 5 mg PO DAILY Qty: 90 0RF Protocol: Hold for SBP< HOLD for SBP < : 90 Continued atorvastatin 40 mg tablet 40 mg PO DAILY@0900 metformin 850 mg tablet 850 mg PO DAILY@2100 metoprolol tartrate 50 mg tablet 50 mg PO BID pioglitazone 30 mg tablet 30 mg PO DAILY@0900 valsartan 160 mg tablet 160 mg PO DAILY@0900 insulin glargine [Lantus Solostar U-100 Insulin] 100 unit/mL (3 mL) insulin pen 36 unit subcut DAILY@0900 pantoprazole 40 mg tablet,delayed release (DR/EC) 40 mg PO DAILY@0630 mirtazapine 15 mg tablet 15 mg PO BEDTIME warfarin 5 mg Tablet 5 mg PO SUMOWEFRSA Held warfarin 5 mg Tablet 7.5 mg PO TUTH@1800 Hold Instructions: restart Friday Rx Instructions: in the evening Discharge Orders: Discharge Order (Routine); Ordered 07/19/24 Ordered By: Ovidio Gordon Diet: Advance to usual diet Activity on Discharge: As tolerated Stand Alone Forms: Patient Portal Discharge page Print Language: Montenegrin Other Ambulatory Orders: Complete Blood Count Auto Diff (Routine) Timeframe: 1 Week Facility: [facility] - Location: Laboratory Ordered By: Ovidio Gordon Care Plan Goals: Hold Warfarin, Restart it on Friday Take Lovenox injections every 12 hours until INR >[address] Moreno as outpatient Continue Pantoprazole Health Concerns: blood loss anemia Gastrointestinal bleeding Plan of Treatment: Lovenox injection Pantoprazole Assessment: as above Discharge Date/Time: 07/19/24 17:00
--- NOTE | 2024-07-19 15:46 | W.MHC.F2F ---
Service Date Service Date: 07/19/24 Encounter Date of encounter: 07/19/24 Reasons for Services Signs and symptoms assessed: Follow INR Phyusical therapy Reason for halfway: monitoring of PT/INR (Stop Lovenox once INR>2. can be checked every 2 days ) Reason for physical therapy: home safety and mobility and therapeutic exercises Homebound: Leaving the home is medically contraindicated at this time without the asist of a device and/or another person due th the listed conditions above and below. Reason homebound: unsteady gait / fall risk Certification: Based on the above findings, I certify that this patient is confined to the home and needs intermittent halfway care, physical therapy and/or speech therapy, or continues to need occupational therapy. The patient is under my care, and I have initiated the establishment of the plan of care. The patient will be followed by a physician who will periodically review the plan of care. Time Spent With Patient Time: Total time managing care of this patient today ____ minutes.
[2024-07-19 16:12] LABS: Glucose, Whole Blood 173 mg/dL (60-115)
== END 2024-07-19 17:00 | disposition home health service (06) | DRG 378 ==
LOC: HO.ED 23:12 → HO.EDOVER 07-16 01:34 → HO.S3 07-16 17:41
PROVIDERS: Internal Medicine Gastroenterology; Registered Nurse Emergency; Admitting Provider Internal Medicine; Emergency Provider Emergency Medicine Emergency Medical Services; PCP Internal Medicine; Visit Provider Student in an Organized Health Care Education/Training Program
PROC: 0DB78ZX Excision of Stomach, Pylorus, Via Natural or Artificial Opening Endoscopic, Diagnostic (ICD-10-PCS; principal; 2024-07-19 12:50)
DX: K55.21 Angiodysplasia of colon with hemorrhage (principal); D62 Acute posthemorrhagic anemia; E11.9 Type 2 diabetes mellitus without complications; K29.71 Gastritis, unspecified, with bleeding; K57.31 Diverticulosis of large intestine without perforation or abscess with bleeding; K63.5 Polyp of colon; K44.9 Diaphragmatic hernia without obstruction or gangrene; K64.9 Unspecified hemorrhoids; I10 Essential (primary) hypertension; Z95.2 Presence of prosthetic heart valve; Z79.4 Long term (current) use of insulin; Z79.01 Long term (current) use of anticoagulants; Z79.84 Long term (current) use of oral hypoglycemic drugs; Z79.899 Other long term (current) drug therapy
CPT/HCPCS: 36415; 80048; 80053; 80076; 82272; 82947; 83540; 85014; 85018; 85025; 85027; 85610; 85730; 86850; 86900; 86901; 86923; 88305; 88313; 88342; 93005; 97161; 99285; J1650; J1805; J1920; J2003; J2470; J2704; J2916; P9016

== ENCOUNTER → 2024-07-15 15:17 | Outpatient (BNV) | payer MEDICARE, SELFPAY | PROVIDERS: Admitting Provider Internal Medicine; Emergency Provider Emergency Medicine Emergency Medical Services; PCP Internal Medicine; Visit Provider Internal Medicine | DX: I44.0 Atrioventricular block, first degree (principal); I45.9 Conduction disorder, unspecified | CPT/HCPCS: 93010 ==

== ENCOUNTER → 2024-07-16 01:30 | Outpatient (BNV) | payer MEDICARE, SELFPAY | PROVIDERS: Admitting Provider Internal Medicine; Emergency Provider Emergency Medicine Emergency Medical Services; PCP Internal Medicine; Visit Provider Student in an Organized Health Care Education/Training Program | DX: D62 Acute posthemorrhagic anemia (principal); Z79.01 Long term (current) use of anticoagulants; K92.2 Gastrointestinal hemorrhage, unspecified | CPT/HCPCS: 99232; 99239; 99499 ==

== ENCOUNTER → 2024-07-16 01:30 | Outpatient (BNV) | payer MEDICARE, SELFPAY | PROVIDERS: Admitting Provider Internal Medicine; Emergency Provider Emergency Medicine Emergency Medical Services; PCP Internal Medicine; Visit Provider Internal Medicine Gastroenterology | DX: D62 Acute posthemorrhagic anemia (principal) | CPT/HCPCS: 99222 ==

== ENCOUNTER 2024-10-18 15:37 | Inpatient (IN) | payer MEDICARE, SELFPAY ==
--- NOTE | ~2024-10-18 | CT_ITS ---
CLINICAL HISTORY: rectal bleeding, hx AVM colon w clip CT abdomen and pelvis with contrast Comparison: CT/SR - CT ABDOMEN PELVIS WO IV CON - 02/27/24 10:20 EDT Findings: Moderate cardiomegaly. No pericardial effusion. Diffuse interstitial prominence and ground-glass opacities of lung bases. Moderate right and small left pleural effusions. Unremarkable gallbladder and solid organs. No urolithiasis. A 3.7 cm right kidney upper pole cyst, remainder of the solid organs are within normal limits. Moderate amount of solid stool is present within the ascending colon. Transverse, descending, and sigmoid colon are mostly contracted. Mild circumferential wall thickening of the rectum which is mostly contracted. No liquid stool or hyperdense material is noted within the colon to suggest active lower GI bleeding. Status post hysterectomy. Pelvic structures are otherwise unremarkable. The bones are intact. IMPRESSION: No CT evidence of lower gastrointestinal active hemorrhage. Transverse, descending, and sigmoid colon are mostly contracted. No liquid stool or hyperdense material within the colon. Mild circumferential wall thickening of the rectum may represent proctitis. Moderate cardiomegaly, diffuse interstitial prominence and ground-glass opacities of the lung bases as well as moderate right and small left pleural effusion, concerning for fluid overload/CHF. This document has been electronically signed by: Ryann Brock MD on 10/18/2024 19:49:42
[2024-10-18 15:40] VITALS: BP 187/62; PULSE 73; RESP 19; TEMP 36.6; O2SAT 98; BMI 35.9
--- NOTE | 2024-10-18 15:40 | ECG_ITS ---
Test Reason : WEAKNESS Blood Pressure : */* mmHG Vent. Rate : 74 BPM Atrial Rate : * BPM P-R Int : * ms QRS Dur : 150 ms QT Int : 460 ms P-R-T Axes : * 70 68 degrees QTcB Int : 510 ms NSR with first degree AV block Left bundle branch block Abnormal ECG When compared with ECG of 15-Jul-2024 15:24, No significant changes seen Referred By: Aaron Miller Electronically Signed By: Bacilio Ahumada
--- NOTE | 2024-10-18 15:40 | ED.GENADULT ---
HPI - General Adult General Chief complaint: GI Bleed Stated complaint: rectal bleeding Time Seen by Provider: 10/18/24 16:18 Source: patient and family Mode of arrival: ambulatory Limitations: no limitations History of Present Illness ED Provider: Dr. Fabiana Samayoa HPI narrative: Patient comes to the emergency room accompanied by her son. According to the patient, today she started having rectal bleeding. Patient states that she takes Coumadin for her mechanical heart valve. Patient states that she has been feeling a bit fatigue over the last few days, no significant shortness of breath, no chest pain, no abdominal pain or rectal pain. Patient states that in June of this year, she had rectal bleeding, patient was diagnosed with gastritis and an AVM in the colon. According to the patient's son, patient had a capsule study done and also eventually need a colonoscopy and a clip was placed to stop the bleeding. Related Data Home Medications ?Medication ?Instructions ?Recorded ?Confirmed atorvastatin 40 mg tablet 40 mg PO DAILY@0900 06/12/24 07/16/24 insulin glargine 100 unit/mL (3 36 unit subcut DAILY@0906/12/24 07/16/24 mL) subcutaneous pen (Lantus Solostar U-100 Insulin) metformin 850 mg tablet 850 mg PO DAILY@2100 06/12/24 07/16/24 metoprolol tartrate 50 mg tablet 50 mg PO BID 06/12/24 07/16/24 pioglitazone 30 mg tablet 30 mg PO DAILY@0900 06/12/24 07/16/24 valsartan 160 mg tablet 160 mg PO DAILY@0900 06/12/24 07/16/24 warfarin 5 mg tablet 7.5 mg PO TUTH@1800 06/12/24 07/16/24 mirtazapine 15 mg tablet 15 mg PO BEDTIME 07/16/24 07/16/24 pantoprazole 40 mg tablet,delayed 40 mg PO DAILY@0630 07/16/24 07/16/24 release warfarin 5 mg tablet 5 mg PO SUMOWEFRSA 07/16/24 07/16/24 Previous Rx's ?Medication ?Instructions ?Recorded amlodipine 5 mg tablet 5 mg PO DAILY #90 tabs 07/19/24 enoxaparin 80 mg/0.8 mL 80 mg (0.8 mL) subcut Q12H 5 days 02/24/25 subcutaneous syringe #8 mL Allergies Allergy/AdvReac Type Severity Reaction Status Date / Time No Known Allergies Allergy Verified 10/18/24 15:41 Review of Systems Review of Systems: Constitutional : No Weight loss, No Fever, No Chills, No Night Sweats, complaining of fatigue ENT/Mouth : No Hearing loss, No Ear Pain, No Nasal Congestion, No Sinus Pain, No Hoarseness, No sore throat, No Rhinorrhea, No Swallowing Difficulty Eyes: No Eye Pain, No Swelling, No Redness, No Foreign Body, No Discharge, No Vision Changes Cardiovascular : No Chest Pain, No SOB, No Dyspnea on Exertion, No Orthopnea, No Edema, No Palpitations Respiratory : No Cough, No Sputum, No Wheezing, No Smoke Exposure, No Dyspnea Gastrointestinal : No Nausea, No Vomiting, No Diarrhea, No Constipation, complaining of bright red blood per rectum since this morning Genitourinary : no irregular bleeding, No Dysuria, No Urinary Frequency, No Hematuria, No Urinary Incontinence, No Urgency, No Flank Pain, No Urinary Flow Changes, No Hesitancy Musculoskeletal : No joint pain, No Myalgias, No Joint Swelling Skin : No Skin Lesions, No rash Neuro : No Weakness, No Numbness, No Paresthesias, No Loss of Consciousness, No Dizziness, No Headache Psych : No Anxiety/Panic, No Depression, No SI/HI/AH/VH, No Social Issues, Heme/Lymph: No Bruising, No Bleeding,No Lymphadenopathy Endocrine : No Polyuria, No Polydipsia, No Temperature Intolerance PMFSH Past Medical History Medical History AVM (arteriovenous malformation) of colon On warfarin therapy Anemia Breast cancer Diabetes Anticoagulated on Coumadin Hypertension Surgical History (Updated 07/27/24 @ 00:01 by Jill Burgos) Heart valve replaced Social History Social History Household Members: Spouse and Family Housing: House Do you presently have visiting nurse or other home services: No Alcohol intake: never Patient Tobacco Use Status: Never used Tobacco Advance Directives: Yes Advance Directives on File: Yes Advance Directives Date on File: 07/16/24 Do you have a plan to hurt others: No Plan service: No Physical Exam ED Vital Signs: Vital Signs - 24 hr 10/18/24 15:40 10/18/24 17:47 10/18/24 18:40 Temperature 98 F 97.7 F 98.1 F Pulse Rate 73 80 74 Respiratory Rate 19 16 18 Blood Pressure 187/62 H 189/74 H 153/46 H Pulse Oximetry 98 89 L 97 Oxygen Delivery Method Room Air Room Air Nasal Cannula Oxygen Flow Rate 2 10/18/24 18:45 10/18/24 20:40 Temperature 98.1 F Pulse Rate 71 Respiratory Rate 16 Blood Pressure 151/45 H 149/53 H Pulse Oximetry 96 Oxygen Delivery Method Nasal Cannula Oxygen Flow Rate 2 BMI result Body Mass Index 35.9 Const Other: Appearance: Alert. Oriented X3. No acute distress. Eyes: Pupils equal, round and reactive to light. ENT: Pharynx normal. Neck: Normal inspection. Neck supple. No lymph nodes noted. No crepitus CVS: Normal heart rate and rhythm. Pulses normal. Normal S1 and S2 Respiratory: No respiratory distress. Breath sounds normal. No Wheezing. No rales Abdomen: Soft and nontender. No rigidity. No distention. SMOOTH positive for bright red blood Skin: Skin warm and dry. Slightly pale skin color. Normal skin turgor. Extremities: No lower extremity edema. No Lacerations. No Rash Neuro: Oriented X 3. No motor deficit. No sensory deficit. Moving all extremities. No slurred speech. CN 2 through 12 grossly intact Psych: calm, cooperative, normal affect Course Course Course Narrative: RME, this is a rapid medical exam performed by Porter Miller please refer to primary provider for complete H&P- 78 year old female presents for evaluation of rectal bleeding. She is on Coumadin. She has required a clip in the past for similar issue. Plan for labs, coags, and type and screen Medications Administered Discontinued Medications Generic Name Dose Route Start Last Admin Trade Name Freq PRN Reason Stop Dose Admin Iohexol 100 ml 10/18/24 17:41 10/18/24 17:42 Iohexol 350 Mg/Ml 100 Ml Infus..Btl IV 10/18/24 17:42 80 ml ONCE ONE Administration Pantoprazole Sodium 80 mg 10/18/24 16:34 10/18/24 16:52 Pantoprazole Sodium 40 Mg/10 Ml Vial IVPUSH 10/18/24 16:35 80 mg ONCE ONE Administration Medical Decision Making Medical Decision Making [facility] Narrative: My interpretation of labs: Patient's hematology and chemistry are stable, hemoglobin 10.5, hematocrit 32.6, this is patient's baseline. INR 3.2, patient has a mechanical heart valve. Chemistry acute abnormality. LFTs within normal limits. Patient's urinalysis shows orange urine color, large amount of blood, trace leukocyte esterase, no squamous epithelial cells, no nitrites. Patient does not have any hematuria or dysuria. His possible that the RBCs are contaminant from rectal bleeding. Stool occult blood positive CT of the abdomen does not show any evidence of lower gastrointestinal active hemorrhage I discussed the patient with Dr. Daniel from the Medicine team, patient being admitted Patient remained stable, blood pressure 149/53, heart rate 71, respirations 16, temperature 98.1 degrees, oxygen saturation 96% Differential Diagnosis Differential Diagnoses: The differential diagnosis associated with the presentation includes Admission/Observation Consideration of admission/observation: Escalation of care including admission/observation considered Consult Healthcare Provider Management of the patient was discussed with: Hospitalist Lab Data [facility] Lab Attestation statement: I reviewed the patient's lab results. 10/18/24 16:02 10/18/24 16:02 Labs: Lab Results 10/18/24 10/18/24 10/18/24 Range/Units 16:02 16:40 16:43 WBC 7.7 (4.8-10.8) X10*3/uL RBC 3.63 L (4.20-5.50) X10*6/uL Hgb 10.5 L (12.0-16.0) g/dl Hct 32.6 L (37.0-47.0) % MCV 89.8 (80.0-98.0) fL MCH 28.9 (27.0-33.0) pg MCHC 32.2 (31.0-35.0) g/dl RDW 14.9 (11.0-16.0) % Plt Count 255 (160-400) X10*3/uL MPV 9.5 (9.4-12.3) fL Immature Gran % (Auto) 0.3 (0.0-0.4) % Neut % (Auto) 72.0 (45-73) % Lymph % (Auto) 16.2 L (20-40) % [place] % (Auto) 8.9 (2-11) % Eos % (Auto) 2.2 (0-4) % Baso % (Auto) 0.4 (0-2) % Lymph # (Auto) 1.3 (1.2-4.9) X10*3/uL [place] # (Auto) 0.7 (0.1-1.2) X10*3/uL Eos # (Auto) 0.2 (0.0-0.4) X10*3/uL Baso # (Auto) 0.0 (0.0-0.2) X10*3/uL Abs Immat Gran (auto) 0.02 (0.00-0.03) X10*3/uL Absolute Neuts (auto) 5.6 (2.0-8.3) x10*3/uL Absolute Nucleated RBC 0.000 (0.0-0.012) X10*3/uL Nucleated RBC % (auto) 0.0 (0.0-0.2) /100WBC PT 36.5 H D (10.9-12.4) SEC INR 3.2 H (0.9-1.1) Sodium 141 (135-145) mmol/L Potassium 4.6 (3.3-5.1) mmol/L Chloride 104 (96-108) mmol/L Carbon Dioxide 29 (22-29) mmol/L Anion Gap 13 (12-20) BUN 17 H (9-16) mg/dL Creatinine 0.98 (0.5-1.4) mg/dL Estim Creat Clear Calc 37.9 Estimated GFR 55 Random Glucose 170 H (60-115) mg/dL Calcium 9.3 D (8.4-10.2) mg/dL Total Bilirubin 0.3 (0.0-1.0) mg/dL AST 25 (5-31) U/L ALT 20 (0-31) U/L Alkaline Phosphatase 98 (39-117) U/L Total Protein 6.8 (6.5-8.0) g/dL Albumin 4.1 (3.5-5.0) g/dL Lipase 34 (8-78) U/L Urine Color Urine Appearance Urine pH (5.0-9.0) Ur Specific [place] (1.005-1.025) Urine Protein (Neg-Trace) mg/dL Urine Glucose (UA) (Negative) mg/dL Urine Ketones (Negative) mg/dL Urine Blood (Negative) Urine Nitrite (Negative) Ur Leukocyte Esterase (Negative) Urine RBC (0-2) /HPF Urine WBC (0-5) /HPF Ur Squamous Epith Cells (0-2) /HPF Urine Bacteria (None Seen) Hyaline Casts (0-2) /LPF Stool Occult Blood POSITIVE (NEGATIVE) Blood Type O Positive Antibody Screen NEGATIVE 10/18/24 Range/Units 20:25 WBC (4.8-10.8) X10*3/uL RBC (4.20-5.50) X10*6/uL Hgb (12.0-16.0) g/dl Hct (37.0-47.0) % MCV (80.0-98.0) fL MCH (27.0-33.0) pg MCHC (31.0-35.0) g/dl RDW (11.0-16.0) % Plt Count (160-400) X10*3/uL MPV (9.4-12.3) fL Immature Gran % (Auto) (0.0-0.4) % Neut % (Auto) (45-73) % Lymph % (Auto) (20-40) % Tyrrell % (Auto) (2-11) % Eos % (Auto) (0-4) % Baso % (Auto) (0-2) % Lymph # (Auto) (1.2-4.9) X10*3/uL [place] # (Auto) (0.1-1.2) X10*3/uL Eos # (Auto) (0.0-0.4) X10*3/uL Baso # (Auto) (0.0-0.2) X10*3/uL Abs Immat Gran (auto) (0.00-0.03) X10*3/uL Absolute Neuts (auto) (2.0-8.3) x10*3/uL Absolute Nucleated RBC (0.0-0.012) X10*3/uL Nucleated RBC % (auto) (0.0-0.2) /100WBC PT (10.9-12.4) SEC INR (0.9-1.1) Sodium (135-145) mmol/L Potassium (3.3-5.1) mmol/L Chloride (96-108) mmol/L Carbon Dioxide (22-29) mmol/L Anion Gap (12-20) BUN (9-16) mg/dL Creatinine (0.5-1.4) mg/dL Estim Creat Clear Calc Estimated GFR Random Glucose (60-115) mg/dL Calcium (8.4-10.2) mg/dL Total Bilirubin (0.0-1.0) mg/dL AST (5-31) U/L ALT (0-31) U/L Alkaline Phosphatase (39-117) U/L Total Protein (6.5-8.0) g/dL Albumin (3.5-5.0) g/dL Lipase (8-78) U/L Urine Color [place] A Urine Appearance Clear Urine pH 6.5 (5.0-9.0) Ur Specific [place] 1.025 (1.005-1.025) Urine Protein Negative (Neg-Trace) mg/dL Urine Glucose (UA) Negative (Negative) mg/dL Urine Ketones Negative (Negative) mg/dL Urine Blood Large (3+) H (Negative) Urine Nitrite Negative (Negative) Ur Leukocyte Esterase Trace H (Negative) Urine RBC >20 H (0-2) /HPF Urine WBC 0-5 (0-5) /HPF Ur Squamous Epith Cells 0-2 (0-2) /HPF Urine Bacteria None Seen (None Seen) Hyaline Casts 0-2 (0-2) /LPF Stool Occult Blood (NEGATIVE) Blood Type Antibody Screen Independent Interpretation I performed an independent interpretation of an: CT Scan Radiology Impression Discussion of test interpretation with radiology: I have reviewed the radiologist's reading. Radiologist Impression: Findings: Moderate cardiomegaly. No pericardial effusion. Diffuse interstitial prominence and ground-glass opacities of lung bases. Moderate right and small left pleural effusions. Unremarkable gallbladder and solid organs. No urolithiasis. A 3.7 cm right kidney upper pole cyst, remainder of the solid organs are within normal limits. Moderate amount of solid stool is present within the ascending colon. Transverse, descending, and sigmoid colon are mostly contracted. Mild circumferential wall thickening of the rectum which is mostly contracted. No liquid stool or hyperdense material is noted within the colon to suggest active lower GI bleeding. Status post hysterectomy. Pelvic structures are otherwise unremarkable. The bones are intact. IMPRESSION: No CT evidence of lower gastrointestinal active hemorrhage. Transverse, descending, and sigmoid colon are mostly contracted. No liquid stool or hyperdense material within the colon. Mild circumferential wall thickening of the rectum may represent proctitis. Moderate cardiomegaly, diffuse interstitial prominence and ground-glass opacities of the lung bases as well as moderate right and small left pleural effusion, concerning for fluid overload/CHF. Critical Care Time Critical Care Time Critical Care Time: Yes Total Critical Care Time: 60 Attestation: I have personally provided critical care time. Time includes review of lab data, radiology results, discussion with consultants, and monitoring for potential decompensation. Intervention performed as documented. Discharge Plan Discharge Clinical Impression: GI bleed Patient Disposition: Admitted As Inpatient Prescriptions: No Action atorvastatin 40 mg tablet 40 mg PO DAILY@0900 metformin 850 mg tablet 850 mg PO DAILY@2100 metoprolol tartrate 50 mg tablet 50 mg PO BID pioglitazone 30 mg tablet 30 mg PO DAILY@0900 valsartan 160 mg tablet 160 mg PO DAILY@0900 insulin glargine [Lantus Solostar U-100 Insulin] 100 unit/mL (3 mL) insulin pen 36 unit subcut DAILY@0900 warfarin 5 mg Tablet 7.5 mg PO TUTH@1800 Rx Instructions: in the evening pantoprazole 40 mg tablet,delayed release (DR/EC) 40 mg PO DAILY@0630 mirtazapine 15 mg tablet 15 mg PO BEDTIME warfarin 5 mg Tablet 5 mg PO SUMOWEFRSA enoxaparin 80 mg/0.8 mL Syringe 80 mg subcut Q12H 5 Days Qty: 8 0RF amlodipine 5 mg Tablet 5 mg PO DAILY Qty: 90 0RF Protocol: Hold for SBP< HOLD for SBP < : 90 Print Language: Czech
[2024-10-18 16:09] LABS: MANUAL DIFF FLAG NO
[2024-10-18 16:11] LABS: Basophils Percent Auto 0.4 % (0-2); Eosinophils Absolute Auto 0.2 X10*3/uL (0.0-0.4); Eosinophils Percent Auto 2.2 % (0-4); Hematocrit 32.6 % (37.0-47.0); Hemoglobin 10.5 g/dl (12.0-16.0); Imm Gran Abs Auto 0.02 X10*3/uL (0.00-0.03); Imm Gran Pct Auto 0.3 % (0.0-0.4); Lymphocytes Absolute Auto 1.3 X10*3/uL (1.2-4.9); Lymphocytes Percent Auto 16.2 % (20-40); Mean Corpuscular HGB Conc 32.2 g/dl (31.0-35.0); Mean Corpuscular Hemoglobin 28.9 pg (27.0-33.0); Mean Corpuscular Volume 89.8 fL (80.0-98.0); Mean Platelet Volume 9.5 fL (9.4-12.3); Monocytes Absolute Auto 0.7 X10*3/uL (0.1-1.2); Monocytes Percent Auto 8.9 % (2-11); Neutrophils Absolute Auto 5.6 x10*3/uL (2.0-8.3); Platelet Count 255 X10*3/uL (160-400); Red Blood Count 3.63 X10*6/uL (4.20-5.50); Red Cell Distribution Width 14.9 % (11.0-16.0); White Blood Count 7.7 X10*3/uL (4.8-10.8)
[2024-10-18 16:18] LABS: INTERNATIONAL NORM RATIO 3.2 (0.9-1.1); Prothrombin Time 36.5 SEC (10.9-12.4)
[2024-10-18 16:24] LABS: Alanine Aminotransferase 20 U/L (0-31); Albumin Level 4.1 g/dL (3.5-5.0); Alkaline Phosphatase 98 U/L (39-117); Anion Gap 13 (12-20); Aspartate Amino Transferase 25 U/L (5-31); Bilirubin Total 0.3 mg/dL (0.0-1.0); Blood Urea Nitrogen 17 mg/dL (9-16); Calcium 9.3 mg/dL (8.4-10.2); Carbon Dioxide 29 mmol/L (22-29); Chloride 104 mmol/L (96-108); Creatinine Clr Calc Pharmacy 37.9; Estimated Glomerular Filt Rate 55; Glucose Random 170 mg/dL (60-115); Lipase 34 U/L (8-78); Potassium 4.6 mmol/L (3.3-5.1); Sodium 141 mmol/L (135-145); Total Protein 6.8 g/dL (6.5-8.0)
[2024-10-18 16:51] LABS: OBS Int Ctl Valid YES; OBS1 POSITIVE (NEGATIVE)
[2024-10-18] MEDS: Pantoprazole Sodium 40 MG/10 ML VIAL 80 MG IVPUSH (16:52)
--- OUTSIDE RECORDS SUMMARY | 2024-10-18 16:56 | XMS_ITS | Clinical Summary ---
Author Organization [facility] Address [address] [place] [address] Phone Care Team Providers Care Analytical Data Scientist Name Role Phone Paco Schuler MD Primary Care Provider [phone] Allergies Active Allergy Reactions Criticality Noted Date [...] each day. Active mirtazapine (Remeron) 15 mg tabletIndicatio ns:Anxiety Take 1 tablet (15 mg total) by mouth at bedtime. 30 each 5 Active amLODIPine (NORVASC) 5 mg tablet Take by mouth 1 (one) time each day. Active pantoprazole (PROTONIX) 20 mg EC tablet Take 1 tablet (20 mg total) by mouth 1 (one) time each day before breakfast. Do not crush, chew, or split. Active Active Problems Problem Noted Date Diagnosed Date Hypertension 04/15/2022 Assessment & Plan (08/30/2024 3:20 PM EDT): Patient is blood pressure is reasonably well-controlled with a reading today 138/78. I have advised that she take the valsartan at night and the amlodipine in the morning and continue with metoprolol twice daily. Aortic stenosis 05/16/2020 Assessment & Plan (08/30/2024 3:20 PM EDT): Patient has history of mechanical aortic valve. She denies any clinical symptoms of heart failure and she is euvolemic on examination. Patient continues on anticoagulation with warfarin. She has not had any bleeding or excessive bruising as of late. She did have a GI bleed earlier this year which was treated with an ablation. No further issues with bleeding since then. She understands endocarditis prophylaxis and takes antibiotics prior to dental cleanings. Will continue to monitor her valve. No need to repeat an echocardiogram at this time as she had one in [place]. Assessment & Plan (07/03/2024 6:24 PM EST): Status post bioprosthetic aortic valve with some slight increase in gradient. Understands need to continue with anticoagulation. Continues with warfarin without bleeding Encounters Date Type Department Care Team Description 08/30/2024 2:10 PM EDT Office Visit [facility] [address] [place] [address] Madeleine Bass NP Nonrheumatic aortic valve stenosis (Primary Dx); Primary hypertension from Last 3 Months Social History Tobacco [...] Sign Reading Time Taken Comments Blood Pressure 138/78 08/30/2024 2:23 PM EDT Pulse 66 08/30/2024 2:00 PM EDT Temperature - - Respiratory Rate - - Oxygen Saturation 96% 08/30/2024 2:00 PM EDT Inhaled Oxygen Concentration - - Weight 74.8 kg (165 lb) 08/30/2024 2:00 PM EDT Height 149.9 cm (4' 11 ) 08/30/2024 2:00 PM EDT Body Mass Index 33.33 08/30/2024 2:00 PM EDT Plan of Treatment Health Maintenance Due Date Last Done Comments Diabetes: Annual GFR (Glomerular Filtration Rate) 1945 Diabetes: Annual Foot Exam 11/14/1955 Diabetes: Annual Retina Eye Exam 11/14/1955 DTaP,Tdap,and Td Vaccines (2 - Td or Tdap) 06/25/2016 06/25/2006 RSV Immunization Adult Patients (1 - 1-dose 75+ series) 2020 Cholesterol Screening (Lipid Panel) 04/28/2022 Depression Screening 04/28/2022 Falls Risk Assessment 04/28/2022 Hepatitis C Screening 04/28/2022 Medicare Annual Wellness Visit 04/28/2022 Osteoporosis Screening (Bone Density Screening) 04/28/2022 Social Influencers of Health Screening 04/28/2022 Hypertension/CHF/CAD Annual BMP Blood Test 05/11/2022 Diabetes: Annual Urine Albumin-Creatinine Ratio (uACR) 07/02/2024 Diabetes: Blood Sugar Control Test (HGBA1C) 07/02/2024 COVID-19 Vaccine ( season) 2024 04/03/2024, 04/07/2023, 04/04/2022, Additional history exists Zoster Vaccines Completed 04/01/2020, 01/22/2020 Pneumococcal Vaccine: 50+ Years Completed 04/07/2023, 10/10/2017, 04/06/2007 Influenza Vaccine Completed 04/03/2024, , 03/22/2022, Additional [...] age to complete this topic Meningococcal B Vaccine Aged Out No l onger eligible based on patient's age to complete this topic RSV Immunization Patients Under 20 months Aged Out No longer eligible based on patient's age to complete this topic Varicella Vaccines Aged Out No longer eligible based on patient's age to complete this topic Insurance [employer] Care Teams Analytical Data Scientist Relationship Specialty Start Date End Date Paco Schuler MD [address] [place] [address] PCP - General Internal Medicine 04/28/20
[2024-10-18] MEDS: iohexoL 350 MG/ML 100 ML INFUS..BTL IV (17:42)
[2024-10-18 17:47] VITALS: BP 189/74; PULSE 80; RESP 16; TEMP 36.5; O2SAT 89
[2024-10-18 18:40] VITALS: BP 153/46; PULSE 74; RESP 18; TEMP 36.7; O2SAT 97
[2024-10-18 18:45] VITALS: BP 151/45
--- NOTE | 2024-10-18 20:32 | MHC.EDTECH ---
pt ambulated to and from bathroom with a steady gait and light standby assist. UA collected and sent to lab
[2024-10-18 20:35] LABS: Bacteria Urine None Seen (None Seen); Hyaline Casts Urine 0-2 /LPF (0-2); RBC Urine >20 /HPF (0-2); Squamous Epithelial Cell Urine 0-2 /HPF (0-2); WBC Urine 0-5 /HPF (0-5)
[2024-10-18 20:37] LABS: Appearance Urine Clear; Color Urine Orange; Glucose Urine UA Negative (Negative); Leukocyte Esterase Urine Trace (Negative); Nitrite Urine Negative (Negative); PH 6.5 (5.0-9.0); Specific Gravity - Urine 1.025 (1.005-1.025); UMIC TRIGGER UACC YES; Urine Blood Large (3+) (Negative); Urine Ketones Negative (Negative); Urine Protein Negative (Neg-Trace)
[2024-10-18 20:40] VITALS: BP 149/53; PULSE 71; RESP 16; TEMP 36.7; O2SAT 96
[2024-10-18 22:04] VITALS: BP 190/69; PULSE 85; RESP 19; TEMP 36.7; O2SAT 95
--- NOTE | 2024-10-18 22:50 | PM.IMHP ---
History of Present Illness Date of Service: 10/18/24 Attending physician on admission: Shi Ugarte Chief Complaint: bleeding with bowel movement Polymer Specialist used. 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 Patient is currently on Coumadin for a mechanical aortic valve replacement and INR upon arrival was 3.2. Upon review with the attending Dr. Daniel we will not provide any reversal noted in the presence of a mechanical valve. Stool for occult positive. Transfusion not indicated at this time. Patient is not complaining of any abdominal pain, nausea or vomiting. Patient denies any history of hemorrhoids. Patient does acknowledge that she had surgery on her stomach which by definition was a angiectasia that was ablated back in 2018. Patient is questioning if this is related to that procedure. Patient states she has had a colonoscopy in the past and the results were normal. In addition patient's blood pressure was elevated and patient states her blood pressure can be elevated when she is in the hospital. Patient denies any issues anxiety or depression at this time. Patient was started on Protonix IV b.i.d. in the emergency department. No history of liver issues. We will make patient NPO at midnight. GI is being consulted. Repeat H&H pending. Review of Systems Review of Systems: Patient denies any chest pain, shortness of breath at rest or with exertion. Patient denies any abdominal pain, nausea or vomiting. Patient denies history of hemorrhoids. Yes all other systems are reviewed and are negative [facility] Medical History (Updated 10/19/24 @ 01:40 by WILMER Montes) Angiectasia AVM (arteriovenous malformation) of colon On warfarin therapy Anemia Breast cancer Diabetes Anticoagulated on Coumadin Hypertension Cognitive capacity: Alert and orientated x3 Functional capacity: uses cane/walker Patient : No Surgical History (Updated 10/18/24 @ 22:59 by WILMER Montes) Status post ablation of incompetent vein using laser Heart valve replaced Social History Household Members: Children Housing: House Do you presently have visiting nurse or other home services: No Alcohol intake: never Patient Tobacco Use Status: Never used Tobacco Have you been hit, kicked, punched, or otherwise hurt by someone within the past year? If so, by whom?: No Do you feel safe in your current relationship?: Yes Is there a partner from a previous relationship who is making you feel unsafe now?: No Are you made to feel afraid or neglected: No Advance Directives: Yes Advance Directives on File: Yes Advance Directives Date on File: 07/16/24 Do you have a plan to hurt others: No Plan Recently lost weight without trying: No How much weight loss: Not applicable Eating poorly because of decreased appetite: No Nutrition screen score: 0 Nutrition Risks: No Nutritional Risk Patient : No : No Poor oral hygiene: No service: No Ebola Risk: Travel/Contact With Anyone From Affected Area/s: No Has Patient Experienced Ebola Symptoms: No Meds Allergies Allergy/AdvReac Type Severity Reaction Status Date / Time No Known Allergies Allergy Verified 10/18/24 15:41 Home Medications ?Medication ?Instructions ?Recorded ?Confirmed ?Last Taken ?Type atorvastatin 40 mg tablet 40 mg PO DAILY@0906/12/24 07/16/24 07/15/24 History insulin glargine 100 unit/mL (3 36 unit subcut DAILY@0906/12/24 07/16/24 07/15/24 History mL) subcutaneous pen (Lantus Solostar U-100 Insulin) metformin 850 mg tablet 850 mg PO DAILY@2100 06/12/24 07/16/24 07/14/24 History metoprolol tartrate 50 mg tablet 50 mg PO BID 06/12/24 07/16/24 07/15/24 History pioglitazone 30 mg tablet 30 mg PO DAILY@0906/12/24 07/16/24 07/15/24 History valsartan 160 mg tablet 160 mg PO DAILY@0900 06/12/24 07/16/24 07/15/24 History warfarin 5 mg tablet 7.5 mg PO TUTH@1800 0107/16/24 07/13/24 History mirtazapine 15 mg tablet 15 mg PO BEDTIME 07/16/24 07/16/24 07/14/24 History pantoprazole 40 mg tablet,delayed 40 mg PO DAILY@0630 07/16/24 07/16/24 07/15/24 History release warfarin 5 mg tablet 5 mg PO SUMOWEFRSA 07/16/24 07/16/24 07/14/24 History Physical Exam Vital Signs and Narrative: Vital Signs: Last Vital Signs Temp 98.0 F 10/18/24 22:04 Pulse 85 10/18/24 22:04 Resp 19 10/18/24 22:04 BP 190/69 H 10/18/24 22:04 Pulse Ox 95 10/18/24 22:04 O2 Del Method Room Air 10/18/24 22:04 O2 Flow Rate 2 10/18/24 20:40 BMI result Body Mass Index 35.9 Alert and orientated X3, able to give good history. Neuro: CN II-X11 intact, no deficits, visual acuity intact EYES: PERRLA, EOM intact ENT: hearing intact, no issues with swallowing, uvula midline, lips moist, nares patent no epistaxis Cardiac: irregular, no murmur, no JVD, moderate nonpitting edema edema in Lower ext, sternotomy incision present fully healed Pulmonary: lungs clear to auscultation B Abdominal: BS active in all 4 quadrants, no guarding, tenderness, rebounding MSK: strength 4/5 upper and lower extremities : no CVA tenderness no bladder distension Extremities: Moderate nonpitting edema in lower extremities, PT and DP pulses palpable +2 Psych: mood stable, judgement and insight good Skin: Intact Results Labs 10/18/24 23:37 10/18/24 16:02 Labs: Laboratory Results - last 24 hr 10/18/24 10/18/24 10/18/24 16:02 16:40 16:43 MCV 89.8 MCH 28.9 MCHC 32.2 RDW 14.9 Plt Count 255 MPV 9.5 Immature Gran % (Auto) 0.3 Neut % (Auto) 72.0 Lymph % (Auto) 16.2 L Falls % (Auto) 8.9 Eos % (Auto) 2.2 Baso % (Auto) 0.4 Lymph # (Auto) 1.3 Falls # (Auto) 0.7 Eos # (Auto) 0.2 Baso # (Auto) 0.0 Abs Immat Gran (auto) 0.02 Absolute Neuts (auto) 5.6 Absolute Nucleated RBC 0.000 Nucleated RBC % (auto) 0.0 PT 36.5 H D INR 3.2 H Anion Gap 13 Estim Creat Clear Calc 37.9 Estimated GFR 55 Random Glucose 170 H Calcium 9.3 D Total Bilirubin 0.3 AST 25 ALT 20 Alkaline Phosphatase 98 Total Protein 6.8 Albumin 4.1 Lipase 34 Urine Color Urine Appearance Urine pH Ur Specific Exchange Urine Protein Urine Glucose (UA) Urine Ketones Urine Blood Urine Nitrite Ur Leukocyte Esterase Urine RBC Urine WBC Ur Squamous Epith Cells Urine Bacteria Hyaline Casts Stool Occult Blood POSITIVE Blood Type O Positive Antibody Screen NEGATIVE 10/18/24 20:25 MCV MCH MCHC RDW Plt Count MPV Immature Gran % (Auto) Neut % (Auto) Lymph % (Auto) Falls % (Auto) Eos % (Auto) Baso % (Auto) Lymph # (Auto) Falls # (Auto) Eos # (Auto) Baso # (Auto) Abs Immat Gran (auto) Absolute Neuts (auto) Absolute Nucleated RBC Nucleated RBC % (auto) PT INR Anion Gap Estim Creat Clear Calc Estimated GFR Random Glucose Calcium Total Bilirubin AST ALT Alkaline Phosphatase Total Protein Albumin Lipase Urine Color [place] A Urine Appearance Clear Urine pH 6.5 Ur Specific Exchange 1.025 Urine Protein Negative Urine Glucose (UA) Negative Urine Ketones Negative Urine Blood Large (3+) H Urine Nitrite Negative Ur Leukocyte Esterase Trace H Urine RBC >20 H Urine WBC 0-5 Ur Squamous Epith Cells 0-2 Urine Bacteria None Seen Hyaline Casts 0-2 Stool Occult Blood Blood Type Antibody Screen ECG Attestation: I personally reviewed and interpreted this ECG as follows: (Atrial fibrillation rate 74) Assessment and Plan (1) GI bleed: Qualifiers: GI bleed type/associated pathology: unspecified gastrointestinal hemorrhage type Qualified Code(s): K92.2 - Gastrointestinal hemorrhage, unspecified Status: Acute Plan Patient is a 78-year-old female speaks Italian only with past medical history hypertension, insulin-dependent diabetes, syncope, history of GI bleed, COVID, aortic valve replacement with mechanical valve currently on Coumadin and INRs currently supratherapeutic, 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 Patient being admitted for GI bleed and GI consultation. Patient is going to remain on her Coumadin currently with an INR of 3.2 noting she has a mechanical aortic valve. H&H stable. Patient has not required transfusion GI bleed -repeat H&H pending -type and screen on hand -transfuse if patient becomes symptomatic or further bleeding occurs or if H&H drops below 7 and 21 -gastroenterology consulted -NPO at midnight -Protonix 40 IV b.i.d. -Type and screen good for 72 hours Mechanical aortic valve -INR 3.2, Coumadin currently on hold -daily INR ordered -May need to bridge with heparin in preparation for GI procedure if needed as anticoagulation cannot be held due to mechanical valve Proximal atrial fib -currently rate controlled in AFib -INR therapeutic -telemetry -Mag 2.3 -continue metoprolol once med rec completed Hypertension -continue amlodipine, valsartan once med rec completed -hydralazine 10 IV p.r.n. q.6 for systolic greater than 160 DVT prophylaxis: Coumadin PPI prophylaxis: Protonix IV 40 b.i.d. Med rec pending Full Code status Quality Stroke Does the patient have a stroke diagnosis?: No Reason for No Anti-thrombotic by Day Two: N/A - Med Ordered VTE Prior VTE?: No VTE Risk Level:: Medical - moderate - high VTE Device Contraindication: N/A - Device Ordered VTE Drug Contraindication: N/A - Med Ordered
[2024-10-18 23:36] LABS: Glucose, Whole Blood 81 mg/dL (60-115)
[2024-10-18 23:59] LABS: Hematocrit 30.8 % (37.0-47.0); Hemoglobin 9.8 g/dl (12.0-16.0)
[2024-10-19] VITALS (11 sets, daily range): BP systolic 147–198; BP diastolic 50–78; PULSE 72–92; RESP 16–20; TEMP 36.1–36.7; O2SAT 92–95; BMI 36.9
[2024-10-19] MEDS: 0.9 % Sodium Chloride Flush 3 ML SYRINGE IVFLUSH ×4 (00:43→20:20)
[2024-10-19] MEDS: hydrALAZINE HCl 20 MG/ML VIAL 10 MG IVPUSH (00:48)
--- NOTE | 2024-10-19 00:52 | PC.NURSE ---
Addendum entered by DARI Stein 10/19/24 01:58: repeat BP 170/50. Dr. Daniel notified and aware. Original Note: on arrival to med surg patients BP was 198/78. per jul 10mg of Hydralazine IV push was administered for SBP>160. will reassess in 1 hour.
[2024-10-19 05:30] LABS: Glucose, Whole Blood 80 mg/dL (60-115)
[2024-10-19] MEDS: Pantoprazole Sodium 40 MG/10 ML VIAL IVPUSH ×2 (05:35→16:46)
[2024-10-19 06:01] LABS: MANUAL DIFF FLAG NO
[2024-10-19 06:17] LABS: INTERNATIONAL NORM RATIO 2.1 (0.9-1.1); Prothrombin Time 24.2 SEC (10.9-12.4)
[2024-10-19 06:24] LABS: Alanine Aminotransferase 17 U/L (0-31); Albumin Level 3.9 g/dL (3.5-5.0); Alkaline Phosphatase 96 U/L (39-117); Anion Gap 12 (12-20); Aspartate Amino Transferase 26 U/L (5-31); Bilirubin Total 0.4 mg/dL (0.0-1.0); Blood Urea Nitrogen 16 mg/dL (9-16); Calcium 9.3 mg/dL (8.4-10.2); Carbon Dioxide 26 mmol/L (22-29); Chloride 109 mmol/L (96-108); Creatinine Clr Calc Pharmacy 44.5; Estimated Glomerular Filt Rate > 60; Glucose Random 77 mg/dL (60-115); Potassium 3.8 mmol/L (3.3-5.1); Sodium 143 mmol/L (135-145); Total Protein 6.6 g/dL (6.5-8.0)
[2024-10-19 06:27] LABS: Basophils Percent Auto 0.5 % (0-2); Eosinophils Absolute Auto 0.1 X10*3/uL (0.0-0.4); Eosinophils Percent Auto 1.4 % (0-4); Hematocrit 32.8 % (37.0-47.0); Hemoglobin 10.6 g/dl (12.0-16.0); Imm Gran Abs Auto 0.03 X10*3/uL (0.00-0.03); Imm Gran Pct Auto 0.3 % (0.0-0.4); Lymphocytes Absolute Auto 1.4 X10*3/uL (1.2-4.9); Lymphocytes Percent Auto 16.3 % (20-40); Mean Corpuscular HGB Conc 32.3 g/dl (31.0-35.0); Mean Corpuscular Hemoglobin 28.7 pg (27.0-33.0); Mean Corpuscular Volume 88.9 fL (80.0-98.0); Mean Platelet Volume 10.5 fL (9.4-12.3); Monocytes Absolute Auto 0.7 X10*3/uL (0.1-1.2); Monocytes Percent Auto 8.4 % (2-11); Neutrophils Absolute Auto 6.3 x10*3/uL (2.0-8.3); Neutrophils Percent Auto 73.1 % (45-73); Platelet Count 242 X10*3/uL (160-400); Red Blood Count 3.69 X10*6/uL (4.20-5.50); White Blood Count 8.6 X10*3/uL (4.8-10.8)
--- NOTE | 2024-10-19 07:00 | CA_ITS ---
Transthoracic Echocardiogram Patient (Last, First, Middle): Emily Whyte I Gender: Female Date of : 1945 Age: 78 Procedure Date: 10/19/2024 Procedure Type: Transthoracic Echocardiogram Location: [facility] [place] Height: 142.24 cm Weight: 74.39 kg BSA: 1.63 m2 Heart Rate: 70 bpm BP: 147 / 65 mmHg Director Of Group Counseling Program: MAGGIE Arcos MD: Bridgett Gill MD Surveillance Operator: Mariano Obando MD Symptoms: CHF, pre-op, hx mechanical AVR Study Quality: Adequate ECG Rhythm: Sinus Conclusions: - 1. Low normal LV ejection fraction 50-55% with moderately increased LV wall thickness with pseudonormal filling pattern 2. At least mildly dilated left atrium 3. Abnormally functioning mechanical aortic prosthesis with mean gradient of 27 mm Hg consistent with stenosis 4. Severe mitral annular calcification 5. Normal measured RV systolic pressure 6. Moderately dilated ascending aorta at 4.5 cm 7. No gross pericardial effusion Findings Left Ventricle Normal left ventricular cavity size. There is moderately increased left ventricular wall thickness. The left ventricular systolic function is low normal. The visually estimated ejection fraction is between 50-55%. There is paradoxical septal motion consistent with post-operative status and paradoxical septal motion consistent with a left bundle branch block. Spectral Doppler is indicative of a pseudonormal filling pattern. Right Ventricle Mildly increased right ventricular cavity size. There is normal right ventricular systolic function. Atria The left atrium is mildly dilated. There is no evidence of interatrial shunt. The right atrium is likely dilated. Aortic Valve A mechanical prosthetic aortic valve is present. The prosthetic aortic valve appears to be functioning abnormally. Echo findings are consistent with stenosis of the aortic valve prosthesis. There is moderate to severe aortic valve stenosis. The mean gradient is 27 mmHg. Mitral Valve There is mild anterior and severe posterior mitral leaflet thickening. There is severe mitral annular calcification. There is mild mitral valve regurgitation. There is no mitral valve stenosis. Pulmonic Valve The pulmonic valve was not well visualized. Tricuspid Valve Likely normal tricuspid valve structure and function. There is mild tricuspid valve regurgitation. Normal right atrial pressure. There is no evidence of pulmonary hypertension. Great Vessels The pulmonary artery was not well visualized. There is moderate dilatation of the ascending aorta measuring 4.50 cm. Venous The inferior vena cava is normal in size and collapses greater than 50% with inspiration. Pericardium/Pleural There is no evidence of pericardial effusion. Measurements 2D Linear Measurements IVSd: 1.38 0.6-0.9/0.6-1.0 cm LVIDd: 4.53 3.9-5.3/4.2-5.9 cm LVIDd Index: 2.78 2.4-3.2/2.2-3.1 cm/m2 LVIDs: 3.10 2.0-3.6 cm LVPWd: 1.42 0.7-1.1 cm LA Diam: 4.50 2.7-3.8/3.0-4.0 cm LAIDs Index: 2.76 1.5-2.3 cm/m2 LV Mass: 312.91 67-162/88-224 g LV Mass Index: 191.97 43-95/49-115 g/m2 LVOT Diam: 1.90 3.0+(-)1.3 cm 2D Systolic Function EF 4C: 42.60 >55% EF 2C: 63.10 >55% EF BiP: 54.10 >55% Mitral Valve MV VTI: 0.48 MV Pk Cruz: 1.81 MV Mn Cruz: 1.20 MV Pk Grad: 13.00 MV Mn Grad: 6.00 MV Pk E: 1.98 MV PK A: 1.08 MV Decel Time: 196.00 E/A: 1.80 E'Lateral: 5.33 E'Medial: 3.81 E/E' Med: 52.00 E/E' Lat: 37.10 PHT: 57.00 MVA PHT: 3.86 MVA Continuity: 1.47 Decel Mifflin: 10.10 Aortic Valve AoV Pk Cruz: 3.40 AoV Mn Cruz: 2.43 AoV VTI: 0.88 AoV Pk Grad: 46.00 Aov Mn Grad: 27.00 SELENE Cont.VTI: 0.80 LVOT LVOT Pk Cruz: 1.00 LVOT Mn Cruz: 0.71 LVOT VTI: 0.25 LVOT Pk Grad: 4.00 LVOT Mn Grad: 2.00 LVOT Diam: 1.90 LVOT Area: 2.84 Diastolic Function MV Pk E: 1.98 MV Pk A: 1.08 E/A: 1.80 E'Medial: 3.81 E/E' Med: 52.00 E' Laterial: 5.33 E/E' Lat: 37.10 Right Ventricle TAPSE (mm): 19.80 TVS' Cruz: 8.27 Tricuspid Valve TR Pk Cruz: 2.83 TR Pk Grad: 32.00 RA Press: 3.00 RVSP: 35.00 Great Vessels Aorta Sinus of Valsalva: 3.50 2.0-3.5 cm Ao Asc: 4.50 2.1-3.4 cm Ao Arch: 3.80 Pulmonary Valve PV Pk Cruz: 0.97 Peak PV Grad: 4.00 Updated in Other Vendor System with Status of Final Mariano Obando MD electronically signed on 10/20/2024 12:48:52 PM with status of Final
--- NOTE | 2024-10-19 10:52 | PHA.MEDREC ---
Pharmacy Consult ? Medication Reconciliation Pharmacy has completed the medication reconciliation. Patient is a poor historian. Spoke to patient daughter Violeta over the phone and she was able to confirm all of her mothers medications. Daughter states patient is no longer taking Acetominophen -Codine , Enoxaparin 80 mg ( only has when getting any kind of procedure) , Furosemide 40 mg. Daughter confirmed Lantus Solostar U-100 30 units daily, Warfarin 7.5 mg on Friday and , Warfarin 5 mg every day other then Fri, thru.
--- NOTE | 2024-10-19 10:57 | PHA.MEDREC ---
Addendum entered by Neftaly Malcolm RPh 10/19/24 11:03: Reviewed by [facility] Original Note: Pharmacy Consult ? Medication Reconciliation Pharmacy has completed the medication reconciliation. Patient is a poor historian. Spoke to patient daughter Violeta over the phone and she was able to confirm all of her mothers medications. Daughter states patient is no longer taking Acetominophen -Codine , Enoxaparin 80 mg ( only has when getting any kind of procedure) , Furosemide 40 mg. Daughter confirmed Lantus Solostar U-100 30 units daily, Warfarin 7.5 mg on Friday and , Warfarin 5 mg every day other then Fri. cream she thinks Friday, Friday
[2024-10-19 11:02] LABS: Glucose, Whole Blood 94 mg/dL (60-115)
[2024-10-19] MEDS: Furosemide 20 MG/2 ML VIAL IVPUSH (12:03)
[2024-10-19] MEDS: Metoprolol Tartrate 50 MG TABLET PO ×2 (12:04→20:20)
[2024-10-19] MEDS: amLODIPine Besylate 5 MG TABLET PO (12:04)
[2024-10-19] MEDS: Acetaminophen 325 MG TABLET 650 MG PO (12:11)
[2024-10-19] MEDS: Enoxaparin Sodium 80 MG/0.8 ML SYRINGE 70 MG SUBCUT (13:57)
--- NOTE | 2024-10-19 14:04 | MHC.CM.PN ---
IMM DELIVERED CM MET WITH PT AND SON AT BEDSIDE WITH SON TRANSLATING PT SPEAKS FRENCH.. PT LIVES WITH SON DARSHAN AND FAMILY. PT IS FUNCTIONALLY INDEPENDENT. NO DME OR SERVICES CURRENTLY. +HCP ON FILE AND VERIFIED. PCP DR. BUTT AT [facility]. DP: HOME, NO SERVICES IS THE GOAL. SHOULD [facility] BE RECOMMENDED, PT'S FIRST CHOICE IS COMFORT +. REFERRAL SENT. FAMILY WILL TRANSPORT HOME. CM WILL CONTINUE TO FOLLOW FOR DC PLAN.
[2024-10-19] MEDS: PEG 3350/Na Sulf,Bicarb,Cl/KCL 4,000 ML SOLN.RECON 4000 ML PO (14:38)
--- NOTE | 2024-10-19 15:08 | P.PNIM_ITS ---
Subjective Subjective Date of Service: 10/19/24 Interval History: c/o hematochezia but no abd pain slightly hypoxic but denies chest pain or shortness of breath Review of Systems Review of Systems: Yes all other systems are reviewed and are negative Physical Exam 2 Vital Signs: Vital Signs: Last Vital Signs Temp 97.0 F 10/19/24 07:48 Pulse 90 10/19/24 12:04 Resp 16 10/19/24 07:48 BP 185/74 H 10/19/24 12:04 Pulse Ox 94 10/19/24 10:31 O2 Del Method Nasal Cannula 10/19/24 10:31 O2 Flow Rate 1 10/19/24 10:31 BMI result Body Mass Index 36.9 Gen: in no acute distress HEENT: sclera anicteric, moist mucus membranes Neck: supple Lungs: diminished at bases bilaterally Heart: regular rate and rhythm, mechanical S2 Abd: soft, non-tender, non-distended Ext: 1+ bilateral leg edema Skin: warm/well-perfused Neuro: alert and oriented x3, no focal findings Psych: appropriate affect Objective Data Active Medications Acetaminophen (Acetaminophen 325 Mg Tablet) 650 mg PO Q6H PRN PRN Reason: Pain, Mild 1-3,fever,headache Last Admin: 10/19/24 12:11 Dose: 650 mg Documented By: MIGUEL A Albuterol/Ipratropium (Albuterol/Iprat 2.5/0.5mg 3 Ml Ampul.Neb) 3 ml INHALE Q4H PRN PRN Reason: Shortness of Breath/Wheezing Amlodipine Besylate (Amlodipine Besylate 5 Mg Tablet) 5 mg PO DAILY [facility]; Protocol Last Admin: 10/19/24 12:04 Dose: 5 mg Documented By: MIGUEL A Atorvastatin Calcium (Atorvastatin Calcium 40 Mg Tablet) 40 mg PO DAILY@0900 [facility] Calcium Carbonate (Calcium Carbonate 750 Mg Tab.Chew) 750 mg PO Q4H PRN PRN Reason: Heartburn Dextrose (Dextrose 50 % 25 Gm/50 Ml Syringe) 25 gm IVPUSH Q15M PRN; Protocol PRN Reason: per Hypoglycemia Standing Ord. Dextrose (Dextrose 50 % 25 Gm/50 Ml Syringe) 25 gm IVPUSH Q15M PRN; Protocol PRN Reason: per Hypoglycemia Standing Ord. Fluticasone Propionate (Fluticasone Propionate Nasal 16 Gm [place]) 1 spray NOSTRIL-B BID [facility] Furosemide (Furosemide 20 Mg/2 Ml Vial) 20 mg IVPUSH DAILY [facility]; Protocol Last Admin: 10/19/24 12:03 Dose: 20 mg Documented By: MIGUEL A Glucose (Glucose Gel 15 Gm Gel..Gram.) 15 gm PO Q15M PRN; Protocol PRN Reason: per Hypoglycemia Standing Ord. Hydralazine HCl (Hydralazine Hcl 20 Mg/Ml Vial) 10 mg IVPUSH Q6H PRN; Protocol PRN Reason: SBP > 160 Last Admin: 10/19/24 00:48 Dose: 10 mg Documented By: CELIA Insulin Human Lispro (Insulin Lispro 100 Unit/Ml 3 Ml Vial) 0 unit SUBCUT Q6H [facility]; Protocol Last Admin: 10/19/24 12:31 Dose: Not Given Documented By: MIGUEL A Non-Admin Reason: No Insulin Coverage Magnesium Hydroxide (Milk Of Magnesia 30 Ml Oral.Susp) 30 ml PO DAILY PRN PRN Reason: Constipation Melatonin (Melatonin 3 Mg Tablet) 6 mg PO BEDTIME PRN PRN Reason: Insomnia Metoprolol Tartrate (Metoprolol Tartrate 50 Mg Tablet) 50 mg PO BID [facility]; Protocol Last Admin: 10/19/24 12:04 Dose: 50 mg Documented By: MIGUEL A Mirtazapine (Mirtazapine 15 Mg Tablet) 15 mg PO BEDTIME PRN PRN Reason: Sleep Ondansetron HCl (Ondansetron Hcl 4 Mg/2 Ml Vial) 4 mg IVPUSH Q8H PRN PRN Reason: Nausea and Vomiting Pantoprazole Sodium (Pantoprazole Sodium 40 Mg/10 Ml Vial) 40 mg IVPUSH BID@0630,1630 [facility] Last Admin: 10/19/24 05:35 Dose: 40 mg Documented By: CELIA Sodium Chloride (0.9 % Sodium Chloride Flush 3 Ml Syringe) 3 ml IVFLUSH QSHIFT [facility] Last Admin: 10/19/24 08:59 Dose: 3 ml Documented By: MIGUEL A Valsartan (Valsartan 160 Mg Tablet) 160 mg PO DAILY@0900 [facility]; Protocol Warfarin Sodium (Warfarin Sodium 7.5 Mg Tablet) 7.5 mg PO TUTH@1800 [facility] Warfarin Sodium (Warfarin Sodium 5 Mg Tablet) 5 mg PO [facility] Labs 10/19/24 05:39 10/19/24 05:39 Labs: Laboratory Results - last 24 hr 10/18/24 10/18/24 10/18/24 16:02 16:40 16:43 MCV 89.8 MCH 28.9 MCHC 32.2 RDW 14.9 Plt Count 255 MPV 9.5 Immature Gran % (Auto) 0.3 Neut % (Auto) 72.0 Lymph % (Auto) 16.2 L [place] % (Auto) 8.9 Eos % (Auto) 2.2 Baso % (Auto) 0.4 Lymph # (Auto) 1.3 [place] # (Auto) 0.7 Eos # (Auto) 0.2 Baso # (Auto) 0.0 Abs Immat Gran (auto) 0.02 Absolute Neuts (auto) 5.6 Absolute Nucleated RBC 0.000 Nucleated RBC % (auto) 0.0 PT 36.5 H D INR 3.2 H Anion Gap 13 Estim Creat Clear Calc 37.9 Estimated GFR 55 POC Glucose Random Glucose 170 H Calcium 9.3 D Total Bilirubin 0.3 AST 25 ALT 20 Alkaline Phosphatase 98 Total Protein 6.8 Albumin 4.1 Lipase 34 Urine Color Urine Appearance Urine pH Ur Specific [place] Urine Protein Urine Glucose (UA) Urine Ketones Urine Blood Urine Nitrite Ur Leukocyte Esterase Urine RBC Urine WBC Ur Squamous Epith Cells Urine Bacteria Hyaline Casts Stool Occult Blood POSITIVE Blood Type O Positive Antibody Screen NEGATIVE 10/18/24 10/18/24 10/19/24 20:25 23:32 05:24 MCV MCH MCHC RDW Plt Count MPV Immature Gran % (Auto) Neut % (Auto) Lymph % (Auto) [place] % (Auto) Eos % (Auto) Baso % (Auto) Lymph # (Auto) [place] # (Auto) Eos # (Auto) Baso # (Auto) Abs Immat Gran (auto) Absolute Neuts (auto) Absolute Nucleated RBC Nucleated RBC % (auto) PT INR Anion Gap Estim Creat Clear Calc Estimated GFR POC Glucose 81 80 Random Glucose Calcium Total Bilirubin AST ALT Alkaline Phosphatase Total Protein Albumin Lipase Urine Color [place] A Urine Appearance Clear Urine pH 6.5 Ur Specific [place] 1.025 Urine Protein Negative Urine Glucose (UA) Negative Urine Ketones Negative Urine Blood Large (3+) H Urine Nitrite Negative Ur Leukocyte Esterase Trace H Urine RBC >20 H Urine WBC 0-5 Ur Squamous Epith Cells 0-2 Urine Bacteria None Seen Hyaline Casts 0-2 Stool Occult Blood Blood Type Antibody Screen 10/19/24 10/19/24 05:39 10:59 MCV 88.9 MCH 28.7 MCHC 32.3 RDW 15.0 Plt Count 242 MPV 10.5 Immature Gran % (Auto) 0.3 Neut % (Auto) 73.1 H Lymph % (Auto) 16.3 L [place] % (Auto) 8.4 Eos % (Auto) 1.4 Baso % (Auto) 0.5 Lymph # (Auto) 1.4 [place] # (Auto) 0.7 Eos # (Auto) 0.1 Baso # (Auto) 0.0 Abs Immat Gran (auto) 0.03 Absolute Neuts (auto) 6.3 Absolute Nucleated RBC 0.000 Nucleated RBC % (auto) 0.0 PT 24.2 H D INR 2.1 H Anion Gap 12 Estim Creat Clear Calc 44.5 Estimated GFR > 60 POC Glucose 94 Random Glucose 77 Calcium 9.3 Total Bilirubin 0.4 AST 26 ALT 17 Alkaline Phosphatase 96 Total Protein 6.6 Albumin 3.9 Lipase Urine Color Urine Appearance Urine pH Ur Specific [place] Urine Protein Urine Glucose (UA) Urine Ketones Urine Blood Urine Nitrite Ur Leukocyte Esterase Urine RBC Urine WBC Ur Squamous Epith Cells Urine Bacteria Hyaline Casts Stool Occult Blood Blood Type Antibody Screen Assessment and Plan (1) GI bleed: Status: Acute Plan d2 for 78yo F with HTN, DM2, recurrent syncope, hx GI bleed, mechanical aortic valve anticoagulated with warfarin presenting with painless hematochezia GI bleed - GI consulted, plan EGD and C-scope yestdray. Pt had EGD at [facility] 08/09/24 and will request operative report - H+H stable, T+S active - continue IV PPI AHRF due to acute/chronic HFpEF - will give furosemide 20 mg daily and monitor I/O, lytes, BNP, weights; update TTE mechanical aortic valve - INR now 2.1, give 1 dose therapeutic enoxaparin for bridging and recheck INR in AM paroxysmal AF - continue metoprolol tartrate - warfarin/enoxaparin as above HTN - metoprolol tartrate, amlodipine, valsartan DM2 - correction-dose lispro VTE ppx - warfarin/enoxaparin dispo - eventual home In my clinical judgment, the patient requires continued inpatient hospitalization for the following reasons: endoscopy/C-scope Total time managing care of this patient today: 45 minutes. Quality Stroke Does the patient have a stroke diagnosis?: No Reason for No Anti-thrombotic by Day Two: N/A - Med Ordered VTE Prior VTE?: No VTE Risk Level:: Medical - moderate - high VTE Device Contraindication: N/A - Device Ordered VTE Drug Contraindication: N/A - Med Ordered
--- NOTE | 2024-10-19 16:23 | P.CNGI_ITS ---
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 Patient noted bloody stools for 1 d. Denies abdominal pain, nausea or vomiting. no dizziness or light headedness. No sob or chest pain. denies taking nsaid s Denies melena, and no nose bleeds. Patient has admission for similar epsidoe 06/2024- and found to ahve cecal avm, and few polyps on egd, colo Patient tends to b midly anemic at baseline, HGB stable thus far at 10 g/dl Review of Systems 2 Review of Systems: Constitutional : No Weight loss, No Fever, No Chills ENT/Mouth : No sore throat, No Rhinorrhea Eyes: No Swelling, No Redness Cardiovascular : No Chest Pain, No SOB, No Edema Respiratory : No Cough, No Sputum, No Wheezing Gastrointestinal : see HPI Genitourinary : NO Dysuria, No Urinary Frequency, No Hematuria, No Urgency Musculoskeletal : + joint pain, No Myalgias, No Joint Swelling Skin : No Skin Lesions, No rash Neuro : No Weakness, No Numbness, No Dizziness, No Headache Psych : No Anxiety/Panic, No Depression Heme/Lymph: No Bruising, No Lymphadenopathy Endocrine : No Polyuria, No Polydipsia All other systems reviewed and are negative. [facility] Past Medical History Medical History (Updated 10/19/24 @ 01:40 by MARYJANE Montes-MARYCARMEN) Angiectasia AVM (arteriovenous malformation) of colon On warfarin therapy Anemia Breast cancer Diabetes Anticoagulated on Coumadin Hypertension Family History Pertinent family history: denmaryann FH of cRC Surgical History Surgical History (Updated 10/18/24 @ 22:59 by WILMER Montes) Status post ablation of incompetent vein using laser Heart valve replaced Social History Social History Household Members: Children Housing: House Do you presently have visiting nurse or other home services: No Alcohol intake: never Patient Tobacco Use Status: Never used Tobacco Currently Displaying Signs/Symptoms of Drug Intoxication Withdrawal: No Have you been hit, kicked, punched, or otherwise hurt by someone within the past year? If so, by whom?: No Do you feel safe in your current relationship?: Yes Is there a partner from a previous relationship who is making you feel unsafe now?: No Are you made to feel afraid or neglected: No Advance Directives: Yes Advance Directives on File: Yes Advance Directives Date on File: 07/16/24 Do you have a plan to hurt others: No Plan Recently lost weight without trying: No How much weight loss: Not applicable Eating poorly because of decreased appetite: No Nutrition screen score: 0 Nutrition Risks: No Nutritional Risk Patient : No : No Poor oral hygiene: No service: No Travel History Ebola Risk: Travel/Contact With Anyone From Affected Area/s: No Has Patient Experienced Ebola Symptoms: No Meds Allergies Allergy/AdvReac Type Severity Reaction Status Date / Time No Known Allergies Allergy Verified 10/18/24 15:41 Active Medications: Current Medications Acetaminophen (Acetaminophen 325 Mg Tablet) 650 mg PO Q6H PRN PRN Reason: Pain, Mild 1-3,fever,headache Last Admin: 10/19/24 12:11 Dose: 650 mg Albuterol/Ipratropium (Albuterol/Iprat 2.5/0.5mg 3 Ml Ampul.Neb) 3 ml INHALE Q4H PRN PRN Reason: Shortness of Breath/Wheezing Amlodipine Besylate (Amlodipine Besylate 5 Mg Tablet) 5 mg PO DAILY [facility]; Protocol Last Admin: 10/19/24 12:04 Dose: 5 mg Atorvastatin Calcium (Atorvastatin Calcium 40 Mg Tablet) 40 mg PO DAILY@0900 [facility] Calcium Carbonate (Calcium Carbonate 750 Mg Tab.Chew) 750 mg PO Q4H PRN PRN Reason: Heartburn Dextrose (Dextrose 50 % 25 Gm/50 Ml Syringe) 25 gm IVPUSH Q15M PRN; Protocol PRN Reason: per Hypoglycemia Standing Ord. Dextrose (Dextrose 50 % 25 Gm/50 Ml Syringe) 25 gm IVPUSH Q15M PRN; Protocol PRN Reason: per Hypoglycemia Standing Ord. Fluticasone Propionate (Fluticasone Propionate Nasal 16 Gm [place]) 1 spray NOSTRIL-B BID [facility] Furosemide (Furosemide 20 Mg/2 Ml Vial) 20 mg IVPUSH DAILY [facility]; Protocol Last Admin: 10/19/24 12:03 Dose: 20 mg Glucose (Glucose Gel 15 Gm Gel..Gram.) 15 gm PO Q15M PRN; Protocol PRN Reason: per Hypoglycemia Standing Ord. Hydralazine HCl (Hydralazine Hcl 20 Mg/Ml Vial) 10 mg IVPUSH Q6H PRN; Protocol PRN Reason: SBP > 160 Last Admin: 10/19/24 00:48 Dose: 10 mg Insulin Human Lispro (Insulin Lispro 100 Unit/Ml 3 Ml Vial) 0 unit SUBCUT Q6H [facility]; Protocol Last Admin: 10/19/24 12:31 Dose: Not Given Magnesium Hydroxide (Milk Of Magnesia 30 Ml Oral.Susp) 30 ml PO DAILY PRN PRN Reason: Constipation Melatonin (Melatonin 3 Mg Tablet) 6 mg PO BEDTIME PRN PRN Reason: Insomnia Metoprolol Tartrate (Metoprolol Tartrate 50 Mg Tablet) 50 mg PO BID [facility]; Protocol Last Admin: 10/19/24 12:04 Dose: 50 mg Mirtazapine (Mirtazapine 15 Mg Tablet) 15 mg PO BEDTIME PRN PRN Reason: Sleep Ondansetron HCl (Ondansetron Hcl 4 Mg/2 Ml Vial) 4 mg IVPUSH Q8H PRN PRN Reason: Nausea and Vomiting Pantoprazole Sodium (Pantoprazole Sodium 40 Mg/10 Ml Vial) 40 mg IVPUSH BID@0630,1630 [facility] Last Admin: 10/19/24 05:35 Dose: 40 mg Sodium Chloride (0.9 % Sodium Chloride Flush 3 Ml Syringe) [facility] Last Admin: 10/19/24 08:59 Dose: 3 ml Valsartan (Valsartan 160 Mg Tablet) 160 mg PO DAILY@0900 [facility]; Protocol Warfarin Sodium (Warfarin Sodium 7.5 Mg Tablet) 7.5 mg PO TUTH@1800 [facility] Warfarin Sodium (Warfarin Sodium 5 Mg Tablet) 5 mg PO [place] [facility] Home Medications ?Medication ?Instructions ?Recorded ?Confirmed ?Last Taken ?Type atorvastatin 40 mg tablet 40 mg PO DAILY@89906/12/24 10/19/24 10/16/24 History insulin glargine 100 unit/mL (3 30 unit subcut DAILY@0900 06/12/24 10/19/24 10/16/24 History mL) subcutaneous pen (Lantus Solostar U-100 Insulin) metformin 850 mg tablet 850 mg PO DAILY@2100 06/12/24 10/19/24 10/16/24 History metoprolol tartrate 50 mg tablet 50 mg PO BID 06/12/24 10/19/24 10/16/24 History pioglitazone 30 mg tablet 30 mg PO DAILY@0906/12/24 10/19/24 10/16/24 History valsartan 160 mg tablet 160 mg PO DAILY@0906/12/24 10/19/24 10/16/24 History warfarin 5 mg tablet 7.5 mg PO TUTH@1800 06/12/24 10/19/24 10/14/24 History mirtazapine 15 mg tablet 15 mg PO BEDTIME PRN Sleep 07/16/24 10/19/24 07/14/24 History pantoprazole 40 mg tablet,delayed 40 mg PO DAILY@0630 07/16/24 10/19/24 10/16/24 History release warfarin 5 mg tablet 5 mg PO [facility]FR07/16/24 10/19/24 10/16/24 History estradiol 0.01% (0.1 mg/gram) 1 appl vaginal MOWEFR 10/19/24 10/19/24 Unknown History vaginal cream fluticasone propionate 50 1 spray intranasal BID 10/19/24 10/19/24 10/16/24 History mcg/actuation nasal spray,suspension Physical Exam 2 Vital Signs: Vital Signs: Last Vital Signs Temp 97.3 F 10/19/24 15:58 Pulse 72 10/19/24 15:58 Resp 18 10/19/24 15:58 BP 178/74 H 10/19/24 15:58 Pulse Ox 93 10/19/24 15:58 O2 Del Method Room Air 10/19/24 15:58 O2 Flow Rate 1 10/19/24 10:31 BMI result Body Mass Index 36.9 EXAM: GENERAL: The patient is well developed and nontoxic. VITAL SIGNS:see workflow HEENT: Nonicteric sclerae, PERRLA, EOMI. Oropharynx clear. Moist mucous membranes. Conjunctivae appear well perfused. No thyroid mass. CHEST: Chest wall is nontender. HEART: Regular rate and rhythm with mechanical aortic valve LUNGS: Clear to auscultation bilaterally. ABDOMEN: Soft, positive bowel sounds, nontender, no organomegaly.no flank tenderness SKIN: No rash, no excessive bruising, petechiae, or purpura. NEUROLOGIC: Cranial nerves II-XII intact without motor/sensory deficit. Psych: normal affect Results Labs 10/19/24 05:39 10/19/24 05:39 Labs: Short CBC 10/18/24 10/19/24 Range/Units 23:37 05:39 WBC 8.6 (4.8-10.8) X10*3/uL Hgb 9.8 L 10.6 L (12.0-16.0) g/dl Hct 30.8 L 32.8 L (37.0-47.0) % Plt Count 242 (160-400) X10*3/uL BMP 10/18/24 10/19/24 16:02 05:39 Sodium 141 143 Potassium 4.6 3.8 Chloride 104 109 H Carbon Dioxide 29 26 BUN 17 H 16 Creatinine 0.98 0.85 Calcium 9.3 D 9.3 Liver Function 10/18/24 10/19/24 Range/Units 16:02 05:39 Total Bilirubin 0.3 0.4 (0.0-1.0) mg/dL AST 25 26 (5-31) U/L ALT 20 17 (0-31) U/L Alkaline Phosphatase 98 96 (39-117) U/L Albumin 4.1 3.9 (3.5-5.0) g/dL Urine 10/18/24 Range/Units 20:25 Urine Color [place] A Urine Appearance Clear Urine pH 6.5 (5.0-9.0) Ur Specific [place] 1.025 (1.005-1.025) Urine Protein Negative (Neg-Trace) mg/dL Urine Glucose (UA) Negative (Negative) mg/dL Assessment and Plan (1) GI bleed: Qualifiers: GI bleed type/associated pathology: unspecified gastrointestinal hemorrhage type Qualified Code(s): K92.2 - Gastrointestinal hemorrhage, unspecified Status: Acute Plan 1/ Acute blood loss anemia with stable vitals, but taking coumadin for mechanical heart valve. Could be recurrence of AVM, hemorrhoidal bleeding, proctitis PLAN: 1/ EGD and colo tomorrow, vitals stable, seems to be low level bleeding, INR 2 today 2/ cont with home PPI for the meantime. Procedures Date of Service Date of Service: 10/19/24
[2024-10-19 16:33] LABS: Glucose, Whole Blood 114 mg/dL (60-115)
[2024-10-19 20:00] LABS: Glucose, Whole Blood 125 mg/dL (60-115)
[2024-10-19] MEDS: Fluticasone Propionate Nasal 16 GM SPRAY 1 SPRAY NOSTRIL-B (20:20)
[2024-10-19] MEDS: Melatonin 3 MG TABLET 6 MG PO (22:16)
[2024-10-20] VITALS (9 sets, daily range): BP systolic 124–176; BP diastolic 44–70; PULSE 63–79; RESP 16–18; TEMP 36.1–36.8; O2SAT 92–98
[2024-10-20 00:07] LABS: Glucose, Whole Blood 93 mg/dL (60-115)
[2024-10-20] MEDS: Pantoprazole Sodium 40 MG/10 ML VIAL IVPUSH (05:38)
[2024-10-20 05:48] LABS: Glucose, Whole Blood 106 mg/dL (60-115)
[2024-10-20 06:39] LABS: Hematocrit 32.5 % (37.0-47.0); Hemoglobin 10.2 g/dl (12.0-16.0); Mean Corpuscular HGB Conc 31.4 g/dl (31.0-35.0); Mean Corpuscular Hemoglobin 28.3 pg (27.0-33.0); Mean Corpuscular Volume 90.3 fL (80.0-98.0); Mean Platelet Volume 10.1 fL (9.4-12.3); Platelet Count 225 X10*3/uL (160-400); Red Cell Distribution Width 14.8 % (11.0-16.0); White Blood Count 5.4 X10*3/uL (4.8-10.8)
[2024-10-20 06:53] LABS: Anion Gap 15 (12-20); Blood Urea Nitrogen 12 mg/dL (9-16); Carbon Dioxide 27 mmol/L (22-29); Chloride 105 mmol/L (96-108); Creatinine Clr Calc Pharmacy 47.9; Estimated Glomerular Filt Rate > 60; Glucose Random 110 mg/dL (60-115); Magnesium 1.8 mg/dL (1.6-2.6); Potassium 3.6 mmol/L (3.3-5.1); Sodium 143 mmol/L (135-145)
[2024-10-20 07:00] LABS: B Type Natriuretic Peptide 856 pg/mL (<100)
[2024-10-20 07:17] LABS: INTERNATIONAL NORM RATIO 1.6 (0.9-1.1); Prothrombin Time 17.8 SEC (10.9-12.4)
[2024-10-20 07:28] LABS: Glucose, Whole Blood 130 mg/dL (60-115)
[2024-10-20] MEDS: amLODIPine Besylate 5 MG TABLET PO (09:21)
[2024-10-20] MEDS: Enoxaparin Sodium 80 MG/0.8 ML SYRINGE 70 MG SUBCUT (09:21)
[2024-10-20] MEDS: Furosemide 20 MG/2 ML VIAL IVPUSH (09:21)
[2024-10-20] MEDS: Valsartan 160 MG TABLET PO (09:21)
[2024-10-20] MEDS: Atorvastatin Calcium 40 MG TABLET PO (09:21)
[2024-10-20] MEDS: Metoprolol Tartrate 50 MG TABLET PO ×2 (09:21→20:37)
[2024-10-20] MEDS: 0.9 % Sodium Chloride Flush 3 ML SYRINGE IVFLUSH ×3 (09:24→20:38)
[2024-10-20] MEDS: Fluticasone Propionate Nasal 16 GM SPRAY 1 SPRAY NOSTRIL-B ×2 (09:26→20:37)
--- NOTE | 2024-10-20 09:44 | P.PNGI_ITS ---
Subjective Subjective Date of Service: 10/20/24 Interval History: still seeing blood in stool but HGB has been stable no abdo pain no n/v no sob or chest pain Critical Care Time (minutes): 0 Physical Exam 2 Vital Signs: Vital Signs: Last Vital Signs Temp 98.2 F 10/20/24 07:16 Pulse 75 10/20/24 07:16 Resp 16 10/20/24 07:16 BP 158/62 H 10/20/24 07:16 Pulse Ox 95 10/20/24 07:16 O2 Del Method Room Air 10/20/24 07:16 O2 Flow Rate 2 10/20/24 04:00 BMI result Body Mass Index 36.9 EXAM: GENERAL: The patient is well developed and nontoxic. VITAL SIGNS:see workflow HEENT: Nonicteric sclerae, PERRLA, EOMI. Oropharynx clear. Moist mucous membranes. Conjunctivae appear well perfused. No thyroid mass. CHEST: Chest wall is nontender. HEART: Regular rate and rhythm with mechanical S2 LUNGS: Clear to auscultation bilaterally. ABDOMEN: Soft, positive bowel sounds, nontender, no organomegaly.no flank tenderness SKIN: No rash, no excessive bruising, petechiae, or purpura. NEUROLOGIC: Cranial nerves II-XII intact without motor/sensory deficit. Psych: normal affect Objective Data Labs 10/20/24 06:17 10/20/24 06:16 Labs: Laboratory Results - last 24 hr 10/19/24 10/19/24 10/19/24 10:59 16:30 19:49 WBC RBC Hgb Hct MCV MCH MCHC RDW Plt Count MPV Absolute Nucleated RBC Nucleated RBC % (auto) PT INR Sodium Potassium Chloride Carbon Dioxide Anion Gap BUN Creatinine Estim Creat Clear Calc Estimated GFR POC Glucose 94 114 125 H Random Glucose Calcium Magnesium B-Natriuretic Peptide 10/20/24 10/20/24 10/20/24 00:01 05:45 06:16 WBC RBC Hgb Hct MCV MCH MCHC RDW Plt Count MPV Absolute Nucleated RBC Nucleated RBC % (auto) PT INR Sodium 143 Potassium 3.6 Chloride 105 Carbon Dioxide 27 Anion Gap 15 BUN 12 Creatinine 0.79 Estim Creat Clear Calc 47.9 Estimated GFR > 60 POC Glucose 93 106 Random Glucose 110 Calcium 9.0 Magnesium 1.8 B-Natriuretic Peptide 05/28/25 05/28/25 06:17 07:23 WBC 5.4 RBC 3.60 L Hgb 10.2 L Hct 32.5 L MCV 90.3 MCH 28.3 MCHC 31.4 RDW 14.8 Plt Count 225 MPV 10.1 Absolute Nucleated RBC 0.000 Nucleated RBC % (auto) 0.0 PT 17.8 H D INR 1.6 H Sodium Potassium Chloride Carbon Dioxide Anion Gap BUN Creatinine Estim Creat Clear Calc Estimated GFR POC Glucose 130 H Random Glucose Calcium Magnesium B-Natriuretic Peptide 856 H Procedures Date of Service Date of Service: 10/20/24 Progress Note: A&P Assessment and plan (1) GI bleed: Status: Acute Plan 1/ Rectal bleeding, ongoing bleeding, but HGB has been stable, hx of AVM and polyps in past PLAN: /1 - EGD and colo for further eval 2/ cont w/ ppi for the moment Time Spent With Patient Time: Total time managing care of this patient today ____ minutes. Quality Stroke Does the patient have a stroke diagnosis?: No Reason for No Anti-thrombotic by Day Two: N/A - Med Ordered VTE Prior VTE?: No VTE Risk Level:: Medical - moderate - high VTE Device Contraindication: N/A - Device Ordered VTE Drug Contraindication: N/A - Med Ordered
--- NOTE | 2024-10-20 09:47 | MHC.SHP ---
Pre-Procedural Eval Section A - 24 Hr Update-Section A only Date of Service: 10/20/24 The patient is an INPATIENT: Yes The patient has been examined within 24 hours of the surgical procedure. The History & Physical has been completed within 30 days and I have reviewed it.: Yes Section B - Complete if H&P > 30 days Chief Complaint: GI Bleeding Allergies: Allergies Allergy/AdvReac Type Severity Reaction Status Date / Time No Known Allergies Allergy Verified 10/20/24 06:51 Plan Diagnosis/Plan: Unchanged I have reviewed the history and physical and performed a pertinent physical examination on my patient. No changes have occurred unless specified. Time Spent With Patient Time: Total time managing care of this patient today ____ minutes.
--- NOTE | 2024-10-20 09:54 | PC.NURSE ---
Dr. Coates aware of patient BNP result this morning. Assessed patient in her room. Ok to go to procedure today per dr. coates.
[2024-10-20 11:20] LABS: Glucose, Whole Blood 130 mg/dL (60-115)
--- NOTE | 2024-10-20 11:35 | HO.ANESPROP2 ---
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 therapy Anemia Breast cancer Diabetes Anticoagulated on Coumadin Hypertension Functional capacity: uses cane/walker Patient : No Family History Family history of problems with anesthesia: No Surgical History Surgical History Status post ablation of incompetent vein using laser Heart valve replaced History of Problems with Anesthesia: No Social History Social History Household Members: Children Housing: House Are you a primary managed care liaison to a significant other at home: No Do you presently have visiting nurse or other home services: No Alcohol intake: never Patient Tobacco Use Status: Never used Tobacco Currently Displaying Signs/Symptoms of Drug Intoxication Withdrawal: No Have you been hit, kicked, punched, or otherwise hurt by someone within the past year? If so, by whom?: No Do you feel safe in your current relationship?: Yes Is there a partner from a previous relationship who is making you feel unsafe now?: No Are you made to feel afraid or neglected: No Are you DNR?: No Advance Directives: Yes Advance Directives on File: Yes Advance Directives Date on File: 07/16/24 Do you have a plan to hurt others: No Plan Recently lost weight without trying: No How much weight loss: Not applicable Eating poorly because of decreased appetite: No Nutrition screen score: 0 Nutrition Risks: No Nutritional Risk Patient : No : No Poor oral hygiene: No service: No Meds Allergies Allergy/AdvReac Type Severity Reaction Status Date / Time No Known Allergies Allergy Verified 10/20/24 06:51 Active Medications: Current Medications Acetaminophen (Acetaminophen 325 Mg Tablet) 650 mg PO Q6H PRN PRN Reason: Pain, Mild 1-3,fever,headache Last Admin: 10/19/24 12:11 Dose: 650 mg Albuterol/Ipratropium (Albuterol/Iprat 2.5/0.5mg 3 Ml Ampul.Neb) 3 ml INHALE Q4H PRN PRN Reason: Shortness of Breath/Wheezing Amlodipine Besylate (Amlodipine Besylate 5 Mg Tablet) 5 mg PO DAILY [facility]; Protocol Last Admin: 10/20/24 09:21 Dose: 5 mg Atorvastatin Calcium (Atorvastatin Calcium 40 Mg Tablet) 40 mg PO DAILY@0900 [facility] Last Admin: 10/20/24 09:21 Dose: 40 mg Calcium Carbonate (Calcium Carbonate 750 Mg Tab.Chew) 750 mg PO Q4H PRN PRN Reason: Heartburn Dextrose (Dextrose 50 % 25 Gm/50 Ml Syringe) 25 gm IVPUSH Q15M PRN; Protocol PRN Reason: per Hypoglycemia Standing Ord. Dextrose (Dextrose 50 % 25 Gm/50 Ml Syringe) 25 gm IVPUSH Q15M PRN; Protocol PRN Reason: per Hypoglycemia Standing Ord. Fluticasone Propionate (Fluticasone Propionate Nasal 16 Gm [place]) 1 spray NOSTRIL-B BID [facility] Last Admin: 10/20/24 09:26 Dose: 1 spray Furosemide (Furosemide 20 Mg/2 Ml Vial) 20 mg IVPUSH DAILY [facility]; Protocol Last Admin: 10/20/24 09:21 Dose: 20 mg Glucose (Glucose Gel 15 Gm Gel..Gram.) 15 gm PO Q15M PRN; Protocol PRN Reason: per Hypoglycemia Standing Ord. Hydralazine HCl (Hydralazine Hcl 20 Mg/Ml Vial) 10 mg IVPUSH Q6H PRN; Protocol PRN Reason: SBP > 160 Last Admin: 10/19/24 00:48 Dose: 10 mg Insulin Human Lispro (Insulin Lispro 100 Unit/Ml 3 Ml Vial) 0 unit SUBCUT Q6H [facility]; Protocol Last Admin: 10/20/24 05:53 Dose: Not Given Magnesium Hydroxide (Milk Of Magnesia 30 Ml Oral.Susp) 30 ml PO DAILY PRN PRN Reason: Constipation Melatonin (Melatonin 3 Mg Tablet) 6 mg PO BEDTIME PRN PRN Reason: Insomnia Last Admin: 10/19/24 22:16 Dose: 6 mg Metoprolol Tartrate (Metoprolol Tartrate 50 Mg Tablet) 50 mg PO BID [facility]; Protocol Last Admin: 10/20/24 09:21 Dose: 50 mg Mirtazapine (Mirtazapine 15 Mg Tablet) 15 mg PO BEDTIME PRN PRN Reason: Sleep Ondansetron HCl (Ondansetron Hcl 4 Mg/2 Ml Vial) 4 mg IVPUSH Q8H PRN PRN Reason: Nausea and Vomiting Pantoprazole Sodium (Pantoprazole Sodium 40 Mg/10 Ml Vial) 40 mg IVPUSH BID@0630,1630 [facility] Last Admin: 10/20/24 05:38 Dose: 40 mg Sodium Chloride (0.9 % Sodium Chloride Flush 3 Ml Syringe) 3 ml IVFLUSH QSHIFT [facility] Last Admin: 10/20/24 09:24 Dose: 3 ml Valsartan (Valsartan 160 Mg Tablet) 160 mg PO DAILY@0900 [facility]; Protocol Last Admin: 10/20/24 09:21 Dose: 160 mg Warfarin Sodium (Warfarin Sodium 7.5 Mg Tablet) 7.5 mg PO TUTH@1800 [facility] Warfarin Sodium (Warfarin Sodium 5 Mg Tablet) 5 mg PO SUMOWEFRSA [facility] Home Medications ?Medication ?Instructions ?Recorded ?Confirmed ?Last Taken ?Type atorvastatin 40 mg tablet 40 mg PO DAILY@0906/12/24 10/19/24 10/16/24 History insulin glargine 100 unit/mL (3 30 unit subcut DAILY@89906/12/24 10/19/24 10/16/24 History mL) subcutaneous pen (Lantus Solostar U-100 Insulin) metformin 850 mg tablet 850 mg PO DAILY@2100 06/12/24 10/19/24 10/16/24 History metoprolol tartrate 50 mg tablet 50 mg PO BID 06/12/24 10/19/24 10/16/24 History pioglitazone 30 mg tablet 30 mg PO DAILY@0906/12/24 10/19/24 10/16/24 History valsartan 160 mg tablet 160 mg PO DAILY@0906/12/24 10/19/24 10/16/24 History warfarin 5 mg tablet 7.5 mg PO TUTH@1800 06/12/24 10/19/24 10/14/24 History mirtazapine 15 mg tablet 15 mg PO BEDTIME PRN Sleep 07/16/24 10/19/24 07/14/24 History pantoprazole 40 mg tablet,delayed 40 mg PO DAILY@0630 07/16/24 10/19/24 10/16/24 History release warfarin 5 mg tablet 5 mg PO SUMOWEFRSA 07/16/24 10/19/24 10/16/24 History estradiol 0.01% (0.1 mg/gram) 1 appl vaginal MOWEFR 10/19/24 10/19/24 Unknown History vaginal cream fluticasone propionate 50 1 spray intranasal BID 10/19/24 10/19/24 10/16/24 History mcg/actuation nasal spray,suspension Exam Height,Weight and Vital Signs: Height 4 ft 8 in Weight 74.7 kg Last Vital Signs Temp 98.2 F 10/20/24 10:51 Pulse 64 10/20/24 10:51 Resp 18 10/20/24 10:51 BP 176/67 H 10/20/24 10:51 Pulse Ox 96 10/20/24 10:51 O2 Del Method Nasal Cannula 10/20/24 10:51 O2 Flow Rate 3 10/20/24 10:51 Pertinent Lab Results Pertinent Lab Results: Laboratory Tests 10/18/24 10/18/24 10/18/24 16:02 16:40 16:43 WBC 7.7 RBC 3.63 L Hgb 10.5 L Hct 32.6 L MCV 89.8 MCH 28.9 MCHC 32.2 RDW 14.9 Plt Count 255 MPV 9.5 Immature Gran % (Auto) 0.3 Neut % (Auto) 72.0 Lymph % (Auto) 16.2 L [place] % (Auto) 8.9 Eos % (Auto) 2.2 Baso % (Auto) 0.4 Lymph # (Auto) 1.3 [place] # (Auto) 0.7 Eos # (Auto) 0.2 Baso # (Auto) 0.0 Abs Immat Gran (auto) 0.02 Absolute Neuts (auto) 5.6 Absolute Nucleated RBC 0.000 Nucleated RBC % (auto) 0.0 PT 36.5 H D INR 3.2 H Sodium 141 Potassium 4.6 Chloride 104 Carbon Dioxide 29 Anion Gap 13 BUN 17 H Creatinine 0.98 Estim Creat Clear Calc 37.9 Estimated GFR 55 POC Glucose Random Glucose 170 H Calcium 9.3 D Magnesium Total Bilirubin 0.3 AST 25 ALT 20 Alkaline Phosphatase 98 B-Natriuretic Peptide Total Protein 6.8 Albumin 4.1 Lipase 34 Urine Color Urine Appearance Urine pH Ur Specific Chloride Urine Protein Urine Glucose (UA) Urine Ketones Urine Blood Urine Nitrite Ur Leukocyte Esterase Urine RBC Urine WBC Ur Squamous Epith Cells Urine Bacteria Hyaline Casts Stool Occult Blood POSITIVE Blood Type O Positive Antibody Screen NEGATIVE 10/18/24 10/18/24 10/18/24 20:25 23:32 23:37 WBC RBC Hgb 9.8 L Hct 30.8 L MCV MCH MCHC RDW Plt Count MPV Immature Gran % (Auto) Neut % (Auto) Lymph % (Auto) [place] % (Auto) Eos % (Auto) Baso % (Auto) Lymph # (Auto) [place] # (Auto) Eos # (Auto) Baso # (Auto) Abs Immat Gran (auto) Absolute Neuts (auto) Absolute Nucleated RBC Nucleated RBC % (auto) PT INR Sodium Potassium Chloride Carbon Dioxide Anion Gap BUN Creatinine Estim Creat Clear Calc Estimated GFR POC Glucose 81 Random Glucose Calcium Magnesium Total Bilirubin AST ALT Alkaline Phosphatase B-Natriuretic Peptide Total Protein Albumin Lipase Urine Color [place] A Urine Appearance Clear Urine pH 6.5 Ur Specific Chloride 1.025 Urine Protein Negative Urine Glucose (UA) Negative Urine Ketones Negative Urine Blood Large (3+) H Urine Nitrite Negative Ur Leukocyte Esterase Trace H Urine RBC >20 H Urine WBC 0-5 Ur Squamous Epith Cells 0-2 Urine Bacteria None Seen Hyaline Casts 0-2 Stool Occult Blood Blood Type Antibody Screen 10/19/24 10/19/24 10/19/24 05:24 05:39 10:59 WBC 8.6 RBC 3.69 L Hgb 10.6 L Hct 32.8 L MCV 88.9 MCH 28.7 MCHC 32.3 RDW 15.0 Plt Count 242 MPV 10.5 Immature Gran % (Auto) 0.3 Neut % (Auto) 73.1 H Lymph % (Auto) 16.3 L [place] % (Auto) 8.4 Eos % (Auto) 1.4 Baso % (Auto) 0.5 Lymph # (Auto) 1.4 [place] # (Auto) 0.7 Eos # (Auto) 0.1 Baso # (Auto) 0.0 Abs Immat Gran (auto) 0.03 Absolute Neuts (auto) 6.3 Absolute Nucleated RBC 0.000 Nucleated RBC % (auto) 0.0 PT 24.2 H D INR 2.1 H Sodium 143 Potassium 3.8 Chloride 109 H Carbon Dioxide 26 Anion Gap 12 BUN 16 Creatinine 0.85 Estim Creat Clear Calc 44.5 Estimated GFR > 60 POC Glucose 80 94 Random Glucose 77 Calcium 9.3 Magnesium Total Bilirubin 0.4 AST 26 ALT 17 Alkaline Phosphatase 96 B-Natriuretic Peptide Total Protein 6.6 Albumin 3.9 Lipase Urine Color Urine Appearance Urine pH Ur Specific Chloride Urine Protein Urine Glucose (UA) Urine Ketones Urine Blood Urine Nitrite Ur Leukocyte Esterase Urine RBC Urine WBC Ur Squamous Epith Cells Urine Bacteria Hyaline Casts Stool Occult Blood Blood Type Antibody Screen 10/19/24 10/19/24 10/20/24 16:30 19:49 00:01 WBC RBC Hgb Hct MCV MCH MCHC RDW Plt Count MPV Immature Gran % (Auto) Neut % (Auto) Lymph % (Auto) [place] % (Auto) Eos % (Auto) Baso % (Auto) Lymph # (Auto) [place] # (Auto) Eos # (Auto) Baso # (Auto) Abs Immat Gran (auto) Absolute Neuts (auto) Absolute Nucleated RBC Nucleated RBC % (auto) PT INR Sodium Potassium Chloride Carbon Dioxide Anion Gap BUN Creatinine Estim Creat Clear Calc Estimated GFR POC Glucose 114 125 H 93 Random Glucose Calcium Magnesium Total Bilirubin AST ALT Alkaline Phosphatase B-Natriuretic Peptide Total Protein Albumin Lipase Urine Color Urine Appearance Urine pH Ur Specific [place]lor[place] Urine Protein Urine Glucose (UA) Urine Ketones Urine Blood Urine Nitrite Ur Leukocyte Esterase Urine RBC Urine WBC Ur Squamous Epith Cells Urine Bacteria Hyaline Casts Stool Occult Blood Blood Type Antibody Screen 10/20/24 10/20/24 10/20/24 05:45 06:16 06:17 WBC 5.4 RBC 3.60 L Hgb 10.2 L Hct 32.5 L MCV 90.3 MCH 28.3 MCHC 31.4 RDW 14.8 Plt Count 225 MPV 10.1 Immature Gran % (Auto) Neut % (Auto) Lymph % (Auto) [place] % (Auto) Eos % (Auto) Baso % (Auto) Lymph # (Auto) [place] # (Auto) Eos # (Auto) Baso # (Auto) Abs Immat Gran (auto) Absolute Neuts (auto) Absolute Nucleated RBC 0.000 Nucleated RBC % (auto) 0.0 PT 17.8 H D INR 1.6 H Sodium 143 Potassium 3.6 Chloride 105 Carbon Dioxide 27 Anion Gap 15 BUN 12 Creatinine 0.79 Estim Creat Clear Calc 47.9 Estimated GFR > 60 POC Glucose 106 Random Glucose 110 Calcium 9.0 Magnesium 1.8 Total Bilirubin AST ALT Alkaline Phosphatase B-Natriuretic Peptide 856 H Total Protein Albumin Lipase Urine Color Urine Appearance Urine pH Ur Specific [place]lor[place] Urine Protein Urine Glucose (UA) Urine Ketones Urine Blood Urine Nitrite Ur Leukocyte Esterase Urine RBC Urine WBC Ur Squamous Epith Cells Urine Bacteria Hyaline Casts Stool Occult Blood Blood Type Antibody Screen 10/20/24 10/20/24 07:23 10:47 WBC RBC Hgb Hct MCV MCH MCHC RDW Plt Count MPV Immature Gran % (Auto) Neut % (Auto) Lymph % (Auto) [place] % (Auto) Eos % (Auto) Baso % (Auto) Lymph # (Auto) [place] # (Auto) Eos # (Auto) Baso # (Auto) Abs Immat Gran (auto) Absolute Neuts (auto) Absolute Nucleated RBC Nucleated RBC % (auto) PT INR Sodium Potassium Chloride Carbon Dioxide Anion Gap BUN Creatinine Estim Creat Clear Calc Estimated GFR POC Glucose 130 H 130 H Random Glucose Calcium Magnesium Total Bilirubin AST ALT Alkaline Phosphatase B-Natriuretic Peptide Total Protein Albumin Lipase Urine Color Urine Appearance Urine pH Ur Specific [place]lor[place] Urine Protein Urine Glucose (UA) Urine Ketones Urine Blood Urine Nitrite Ur Leukocyte Esterase Urine RBC Urine WBC Ur Squamous Epith Cells Urine Bacteria Hyaline Casts Stool Occult Blood Blood Type Antibody Screen Airway Mallampati Class: II TM Dist: >3cm Neck ROM: Full Heart: RRR Lungs: CTA Assessment and Plan Assessment Anesthesia Assessment: Anesthesia Plan Discussed Final Anesthetic Review Family History of Problems with Anesthesia: No History of Problems with Anesthesia: No NPO: Yes ASA Class: III and Emergency Final Preanesthetic Review: Meds/Allgs Chart Reviewed, Consent Obtained/Reviewed and Anes Risks/Benef Reviewed Patient Risk: Intermediate Procedure Risk: Low Anesthetic Plan Anesthetic Plan: MAC: Disposition: Standard PACU
--- NOTE | 2024-10-20 11:58 | P.OPN-COLO_ITS ---
Colonoscopy Operative Note Operative Note Date of Service: 10/20/24 Narrative: Operative Information Procedure Description: EGD, Colonoscopy Indication: GI bleeding Anesthesia: MAC FLEXIBLE TRANSORAL UPPER GASTROINTESTINAL ENDOSCOPY AND COLONOSCOPY PROCEDURE NOTE UPPER ENDOSCOPY Consent: Indications for the procedure and potential complications of bleeding, perforation, reaction to medications and missed diagnosis were discussed with the patient and informed consent was obtained. Instrument: Olympus GIF H 190 J mid size upper endoscope Monitoring: Vital signs and clinical assessment, continuous EKG monitoring, Pulse oximetry, Carbon Dioxide monitoring and blood pressure monitoring were done throughout the procedure. Procedure: The patient was placed in the left lateral decubitis position and pre-procedure medications were administered and a bite block was placed. The endoscope was inserted into the mouth and advanced under direct vision to the third part of duodenum. A careful inspection was made as the upper endoscope was withdrawn including a retroflexed examination of the proximal stomach; Findings and interventions are described below. Findings: Larynx:normal Esophagus: GE junction at 34 cm, diaphragm hiatus at 36 cm, normal mucosa- small hiatal hernia noted Stomach: mild gastritis. Biopsies were obtained. Grade 2 flap valve on retroflexed examination of the cardia. Duodenum: Normal bulb and descending duodenum, Intervention: Biopsies as noted above, COLONOSCOPY Instrument: Olympus variable stiffness pediatric scope 190L Colonoscopy Monitoring: Vital signs and clinical assessment, continuous EKG monitoring, Pulse oximetry, Carbon Dioxide monitoring and blood pressure monitoring were done throughout the procedure. Colon withdrawal time was 8 minutes. Procedure: The patient was placed in the left lateral decubitis position and pre-procedure medications were administered. After a digital rectal examination of the ano-rectum, the video colonoscope was inserted into the rectum and advanced through the colon to the cecum/TI. The colonoscope was slowly withdrawn in a retrograde panoramic fashion and the colon mucosa was carefully examined including a retroflexed view of the rectum. Findings and interventions are described below. Procedure Difficulty:moderate--pressure applied Findings: Terminal Ileum-normal- superficially intubated Cecum: slightly raised folds around the appendiceal orifice, bx taken, x 1 sessile polyp 4-5 mm removed with cold forceps Ascending Colon: prior clip noted and possible residual polyp tissue around it, removed with cold snare Transverse Colon - x 2 sessile polyps 5-7 mm removed with cold snare Descending Colon:normal Sigmoid Colon: moderate diverticulosis Rectum: Retroflexion with small to medium internal hemorrhoids, grade I with some surrounding inflammation Anorectum - normal Colon preparation: [place] Bowel Preparation Scale Right colon; 2 Transverse colon: 1-2 Left colon; 1-2 (0 = Unprepared colon segment with mucosa not seen due to solid stool that cannot be cleared. 1 = Portion of mucosa of the colon segment seen, but other areas of the colon segment not well seen due to staining, residual stool and/or opaque liquid. 2 = Minor amount of residual staining, small fragments of stool and/or opaque liquid, but mucosa of colon segment seen well. 3 = Entire mucosa of colon segment seen well with no residual staining, small fragments of stool or opaque liquid) Impression and Post Procedure Diagnosis: Endoscopy Findings: mild gastritis hiatal hernia Colonoscopy Findings: diverticulosis colon polyps internal hemorrhoids Plan: Await Pathology results Repeat Colonoscopy in 2-3 years if health allows or earlier if clinically indicated, next time use colowrap High fiber diet leaflet avoid straining at stool, epsom salts and sitz bath, anusol supps or cream can restart NOAC tomorrow Above findings were reviewed with the patient and relevant handouts were provided if indicated.
--- NOTE | 2024-10-20 12:25 | MHC.CM.PN ---
Per MD rounds patient not medically cleared for dc at this time. Anticipate DC tomorow - home w/ services. [facility], patient's preferred agency, updated. CM will continue to follow.
--- NOTE | 2024-10-20 12:29 | HO.POSTANES ---
Post Anesthesia Evaluation Post Anesthesia Evaluation Date of Service: 10/20/24 Vital Signs: Vital Signs Temp Pulse Resp BP Pulse Ox O2 Del Method O2 Flow Rate 10/20/24 12:20 66 16 160/52 H 98 Room Air 10/20/24 12:07 97.6 F 63 16 124/44 L 95 Room Air 10/20/24 10:51 98.2 F 64 18 176/67 H 96 Nasal Cannula 3 10/20/24 07:16 98.2 F 75 16 158/62 H 95 Room Air 10/20/24 04:00 98.1 F 70 18 170/62 H 94 Nasal Cannula 2 Anesthesia: Monitored Mental Status: Awake Pain Control: Satisfactory Nausea/Vomiting: None Hydration: Adequate Anesthesia-Related Issues: No Anes. Related Issues
--- NOTE | 2024-10-20 12:52 | HO.PM.IMPN ---
Subjective Subjective Date of Service: 10/20/24 Interval History: feels well, no dyspnea, minimal leg swelling, no chest pain EGD + C-scope today Review of Systems Review of Systems: Yes all other systems are reviewed and are negative Physical Exam Vital Signs: Vital Signs: Last Vital Signs Temp 97 F 10/20/24 12:30 Pulse 66 10/20/24 12:30 Resp 16 10/20/24 12:30 BP 160/52 H 10/20/24 12:30 Pulse Ox 98 10/20/24 12:30 O2 Del Method Room Air 10/20/24 12:30 O2 Flow Rate 3 10/20/24 10:51 BMI result Body Mass Index 36.9 Gen: in no acute distress HEENT: sclera anicteric, moist mucus membranes Neck: supple Lungs: diminished at bases bilaterally Heart: regular rate and rhythm, mechanical S2 Abd: soft, non-tender, non-distended Ext: no leg edema Skin: warm/well-perfused Neuro: alert and oriented x3, no focal findings Psych: appropriate affect Objective Data Active Medications Acetaminophen (Acetaminophen 325 Mg Tablet) 650 mg PO Q6H PRN PRN Reason: Pain, Mild 1-3,fever,headache Last Admin: 10/19/24 12:11 Dose: 650 mg Documented By: MIGUEL A Albuterol/Ipratropium (Albuterol/Iprat 2.5/0.5mg 3 Ml Ampul.Neb) 3 ml INHALE Q4H PRN PRN Reason: Shortness of Breath/Wheezing Amlodipine Besylate (Amlodipine Besylate 5 Mg Tablet) 5 mg PO DAILY [facility]; Protocol Last Admin: 10/20/24 09:21 Dose: 5 mg Documented By: GISSELLE Atorvastatin Calcium (Atorvastatin Calcium 40 Mg Tablet) 40 mg PO DAILY@0900 [facility] Last Admin: 10/20/24 09:21 Dose: 40 mg Documented By: GISSELLE Calcium Carbonate (Calcium Carbonate 750 Mg Tab.Chew) 750 mg PO Q4H PRN PRN Reason: Heartburn Dextrose (Dextrose 50 % 25 Gm/50 Ml Syringe) 25 gm IVPUSH Q15M PRN; Protocol PRN Reason: per Hypoglycemia Standing Ord. Dextrose (Dextrose 50 % 25 Gm/50 Ml Syringe) 25 gm IVPUSH Q15M PRN; Protocol PRN Reason: per Hypoglycemia Standing Ord. Enoxaparin Sodium (Enoxaparin Sodium 80 Mg/0.8 Ml Syringe) 159 mg SUBCUT ONCE ONE Stop: 10/20/24 20:01 Fluticasone Propionate (Fluticasone Propionate Nasal 16 Gm [place]) 1 spray NOSTRIL-B BID [facility] Last Admin: 10/20/24 09:26 Dose: 1 spray Documented By: GISSELLE Furosemide (Furosemide 20 Mg/2 Ml Vial) 20 mg IVPUSH DAILY [facility]; Protocol Last Admin: 10/20/24 09:21 Dose: 20 mg Documented By: GISSELLE Glucose (Glucose Gel 15 Gm Gel..Gram.) 15 gm PO Q15M PRN; Protocol PRN Reason: per Hypoglycemia Standing Ord. Hydralazine HCl (Hydralazine Hcl 20 Mg/Ml Vial) 10 mg IVPUSH Q6H PRN; Protocol PRN Reason: SBP > 160 Last Admin: 10/19/24 00:48 Dose: 10 mg Documented By: CELIA Insulin Glargine (Insulin Glargine,Hum.Rec.Anlog 100 Unit/Ml 10 Ml Vial) 30 unit SUBCUT DAILY@0900 [facility] Insulin Human Lispro (Insulin Lispro 100 Unit/Ml 3 Ml Vial) 0 unit SUBCUT Q6H [facility]; Protocol Last Admin: 10/20/24 11:35 Dose: Not Given Documented By: GISSELLE Non-Admin Reason: No Insulin Coverage Magnesium Hydroxide (Milk Of Magnesia 30 Ml Oral.Susp) 30 ml PO DAILY PRN PRN Reason: Constipation Melatonin (Melatonin 3 Mg Tablet) 6 mg PO BEDTIME PRN PRN Reason: Insomnia Last Admin: 10/19/24 22:16 Dose: 6 mg Documented By: SERGEY Metformin HCl (Metformin Hcl 850 Mg Tablet) 850 mg PO DAILY@2100 [facility] Metoprolol Tartrate (Metoprolol Tartrate 50 Mg Tablet) 50 mg PO BID [facility]; Protocol Last Admin: 10/20/24 09:21 Dose: 50 mg Documented By: GISSELLE Mirtazapine (Mirtazapine 15 Mg Tablet) 15 mg PO BEDTIME PRN PRN Reason: Sleep Naloxone HCl (Naloxone Hcl 0.4 Mg/Ml Vial) 0.04 mg IVPUSH Q5M PRN PRN Reason: Excessive sedation or RR < 8 Ondansetron HCl (Ondansetron Hcl 4 Mg/2 Ml Vial) 4 mg IVPUSH Q8H PRN PRN Reason: Nausea and Vomiting Pantoprazole Sodium (Pantoprazole Sodium 40 Mg/10 Ml Vial) 40 mg IVPUSH BID@0630,1630 [facility] Last Admin: 10/20/24 05:38 Dose: 40 mg Documented By: SERGEY Pioglitazone HCl (Pioglitazone Hcl 30 Mg Tablet) 30 mg PO DAILY@0900 [facility] Sodium Chloride (0.9 % Sodium Chloride Flush 3 Ml Syringe) 3 ml IVFLUSH QSHIFT [facility] Last Admin: 10/20/24 09:24 Dose: 3 ml Documented By: GISSELLE Valsartan (Valsartan 160 Mg Tablet) 160 mg PO DAILY@0900 [facility]; Protocol Last Admin: 10/20/24 09:21 Dose: 160 mg Documented By: GISSELLE Warfarin Sodium (Warfarin Sodium 7.5 Mg Tablet) 7.5 mg PO TUTH@1800 [facility] Warfarin Sodium (Warfarin Sodium 5 Mg Tablet) 5 mg PO SUMOWEFR [facility] Labs 10/20/24 06:17 10/20/24 06:16 Labs: Laboratory Results - last 24 hr 10/19/24 10/19/24 10/20/24 16:30 19:49 00:01 MCV MCH MCHC RDW Plt Count MPV Absolute Nucleated RBC Nucleated RBC % (auto) PT INR Anion Gap Estim Creat Clear Calc Estimated GFR POC Glucose 114 125 H 93 Random Glucose Calcium Magnesium B-Natriuretic Peptide 10/20/24 10/20/24 10/20/24 05:45 06:16 06:17 MCV 90.3 MCH 28.3 MCHC 31.4 RDW 14.8 Plt Count 225 MPV 10.1 Absolute Nucleated RBC 0.000 Nucleated RBC % (auto) 0.0 PT 17.8 H D INR 1.6 H Anion Gap 15 Estim Creat Clear Calc 47.9 Estimated GFR > 60 POC Glucose 106 Random Glucose 110 Calcium 9.0 Magnesium 1.8 B-Natriuretic Peptide 856 H 10/20/24 10/20/24 07:23 10:47 MCV MCH MCHC RDW Plt Count MPV Absolute Nucleated RBC Nucleated RBC % (auto) PT INR Anion Gap Estim Creat Clear Calc Estimated GFR POC Glucose 130 H 130 H Random Glucose Calcium Magnesium B-Natriuretic Peptide Assessment and Plan (1) GI bleed: Status: Acute Plan d3 for 78yo F with HTN, DM2, recurrent syncope, hx GI bleed, mechanical aortic valve anticoagulated with warfarin presenting with painless hematochezia LGI bleed, hemorrhoidal - GI consulted, Dr Royal did EGD + C-scope today showing: mild gastritis hiatal hernia diverticulosis colon polyps internal hemorrhoids Plan: Await Pathology results Repeat Colonoscopy in 2-3 years if health allows or earlier if clinically indicated, next time use colowrap High fiber diet leaflet avoid straining at stool, epsom salts and sitz bath, anusol supps or cream - change back to PO PPI - resume warfarin today AHRF due to acute/chronic HFpEF - continue furosemide 20 mg IV daily and monitor I/O, lytes, BNP, weights; update TTE mechanical aortic valve - INR 2.1->1.6, bridge with therapeutic enoxaparin 1 mg/kg q12h, recheck INR in AM - resume warfarin today paroxysmal AF - continue metoprolol tartrate - warfarin/enoxaparin as above HTN - metoprolol tartrate, amlodipine, valsartan DM2 - correction-dose lispro VTE ppx - warfarin/enoxaparin dispo - eventual home In my clinical judgment, the patient requires continued inpatient hospitalization for the following reasons: CHF exacerbation Total time managing care of this patient today: 40 minutes. Quality Stroke Does the patient have a stroke diagnosis?: No Reason for No Anti-thrombotic by Day Two: N/A - Med Ordered VTE Prior VTE?: No VTE Risk Level:: Medical - moderate - high VTE Device Contraindication: N/A - Device Ordered VTE Drug Contraindication: N/A - Med Ordered
[2024-10-20 13:13] LABS: Glucose, Whole Blood 142 mg/dL (60-115)
[2024-10-20 17:10] LABS: Glucose, Whole Blood 166 mg/dL (60-115)
[2024-10-20] MEDS: Insulin Lispro 100 UNIT/ML 3 ML VIAL SUBCUT ×2 (17:58→23:47)
[2024-10-20 20:36] LABS: Glucose, Whole Blood 264 mg/dL (60-115)
[2024-10-20] MEDS: metFORMIN HCl 850 MG TABLET PO (20:37)
[2024-10-20] MEDS: Enoxaparin Sodium 80 MG/0.8 ML SYRINGE 159 MG SUBCUT (20:38)
[2024-10-20] MEDS: Hydrocortisone 2.5 % Rectal Cr 30 GM TUBE 1 APPL PR (21:07)
[2024-10-20 23:43] LABS: Glucose, Whole Blood 165 mg/dL (60-115)
[2024-10-21 04:00] VITALS: BP 148/65; PULSE 67; RESP 18; TEMP 36.6; O2SAT 95
[2024-10-21] MEDS: Omeprazole 20 MG CAPSULE.DR PO (06:03)
[2024-10-21 06:11] LABS: Glucose, Whole Blood 133 mg/dL (60-115)
[2024-10-21 07:09] LABS: Hematocrit 33.9 % (37.0-47.0); Hemoglobin 10.8 g/dl (12.0-16.0); Mean Corpuscular HGB Conc 31.9 g/dl (31.0-35.0); Mean Corpuscular Hemoglobin 28.3 pg (27.0-33.0); Mean Corpuscular Volume 88.7 fL (80.0-98.0); Platelet Count 243 X10*3/uL (160-400); Red Blood Count 3.82 X10*6/uL (4.20-5.50); Red Cell Distribution Width 14.7 % (11.0-16.0); White Blood Count 5.6 X10*3/uL (4.8-10.8)
[2024-10-21 07:10] LABS: INTERNATIONAL NORM RATIO 1.5 (0.9-1.1); Prothrombin Time 16.9 SEC (10.9-12.4)
[2024-10-21 07:18] LABS: Anion Gap 12 (12-20); Blood Urea Nitrogen 17 mg/dL (9-16); Calcium 9.1 mg/dL (8.4-10.2); Carbon Dioxide 31 mmol/L (22-29); Chloride 104 mmol/L (96-108); Estimated Glomerular Filt Rate > 60; Glucose Random 128 mg/dL (60-115); Magnesium 1.8 mg/dL (1.6-2.6); Potassium 3.8 mmol/L (3.3-5.1); Sodium 143 mmol/L (135-145)
[2024-10-21 07:26] LABS: B Type Natriuretic Peptide 517 pg/mL (<100)
[2024-10-21 07:39] VITALS: BP 131/63; PULSE 75; RESP 16; TEMP 36.4; O2SAT 94
[2024-10-21 07:47] LABS: Glucose, Whole Blood 154 mg/dL (60-115)
[2024-10-21] MEDS: Insulin Glargine,Hum.rec.anlog 100 UNIT/ML 10 ML VIAL 30 UNIT SUBCUT (08:03)
[2024-10-21] MEDS: Furosemide 20 MG/2 ML VIAL IVPUSH (08:03)
[2024-10-21] MEDS: Valsartan 160 MG TABLET PO (08:04)
[2024-10-21] MEDS: Metoprolol Tartrate 50 MG TABLET PO (08:04)
[2024-10-21] MEDS: amLODIPine Besylate 5 MG TABLET PO (08:04)
[2024-10-21] MEDS: Pioglitazone HCL 30 MG TABLET PO (08:04)
[2024-10-21] MEDS: Atorvastatin Calcium 40 MG TABLET PO (08:04)
[2024-10-21] MEDS: 0.9 % Sodium Chloride Flush 3 ML SYRINGE IVFLUSH (08:05)
[2024-10-21] MEDS: Fluticasone Propionate Nasal 16 GM SPRAY 1 SPRAY NOSTRIL-B (08:08)
--- NOTE | 2024-10-21 08:27 | HO.POSTANES ---
Post Anesthesia Evaluation Post Anesthesia Evaluation Date of Service: 10/21/24 Vital Signs: Vital Signs Temp Pulse Resp BP Pulse Ox O2 Del Method 10/21/24 07:39 97.5 F 75 16 131/63 94 Room Air 10/21/24 04:00 97.8 F 67 18 148/65 H 95 Room Air 10/20/24 23:35 98.1 F 68 18 168/70 H 94 Room Air Anesthesia: Monitored Mental Status: Awake Pain Control: Satisfactory Nausea/Vomiting: None Hydration: Adequate Anesthesia-Related Issues: No Anes. Related Issues
[2024-10-21] MEDS: Enoxaparin Sodium 80 MG/0.8 ML SYRINGE 70 MG SUBCUT (09:29)
--- NOTE | 2024-10-21 09:47 | P.CONCA_ITS ---
History of Present Illness History of Present Illness Date of Service: 10/21/24 Requesting physician: Bridgett Gill Consult reason: congestive heart failure and other (Abnormal valve function) Chief complaint: GI Bleeding Narrative: I was asked to see Emily in cardiology consultation today she was then admitted with painless hematochezia and subsequent workup was noted to have only hemorrhoids as a significant pathology. She has prior history of mechanical aortic valve replacement as follows with a sausage grinder at [facility]. Echocardiogram done few years ago at shown increased gradient across the aortic valve. She came in and was noted to be in mild heart failure with crackles as well as leg edema. She has diuresed. She is to be on Lasix in the past but on admission she was not on any diuretic therapy for unclear reason. She does not know much of her history. She does have history of hypertension, insulin- requiring diabetes, acid reflux disease, aortic valve replacement as mentioned. No known history of congestive heart failure or coronary artery disease or myocardial infarction as per her clinically today she feels well. She has no leg edema. She denies any orthopnea, PND. No chest pain. She denies any exertional lightheadedness. Echocardiogram done shows mean gradient of 27 mm Hg with moderate to severe stenosis of her mechanical aortic valve with pseudonormal filling pattern with moderately dilated ascending aorta. Review of Systems 2 Constitutional: Constitutional: Reports weakness Eyes: Eyes: Reports no additional eye complaints Cardiovascular: Cardiovascular: Denies chest pain, Denies chest pain with activity, Denies leg edema, Denies lightheadedness, Denies Loss of Consciousness, Denies palpitations, Reports dyspnea on exertion, Denies orthopnea and Denies paroxysmal nocturnal dyspnea Respiratory: Respiratory: Reports no additional respiratory complaints and Reports dyspnea on exertion Gastrointestinal: Gastrointestinal: Reports no additional gastrointestinal complaints Integumentary/Breasts: Skin/Breast: Reports system reviewed and no additional complaints, except as docu Neurologic: Reports system reviewed and no additional complaints, except as documented and Reports weakness Psychiatric: Psychiatric: Reports no additional psychiatric complaints Endocrine: Endocrine: Denies palpitations [facility] Past Medical History Medical History Angiectasia AVM (arteriovenous malformation) of colon On warfarin therapy Anemia Breast cancer Diabetes Anticoagulated on Coumadin Hypertension Surgical History Surgical History Status post ablation of incompetent vein using laser Heart valve replaced Social History Social History Household Members: Children Housing: House Are you a primary palliative care physician to a significant other at home: No Do you presently have visiting nurse or other home services: No Alcohol intake: never Patient Tobacco Use Status: Never used Tobacco Currently Displaying Signs/Symptoms of Drug Intoxication Withdrawal: No Have you been hit, kicked, punched, or otherwise hurt by someone within the past year? If so, by whom?: No Do you feel safe in your current relationship?: Yes Is there a partner from a previous relationship who is making you feel unsafe now?: No Are you made to feel afraid or neglected: No Are you DNR?: No Advance Directives: Yes Advance Directives on File: Yes Advance Directives Date on File: 07/16/24 Do you have a plan to hurt others: No Plan Recently lost weight without trying: No How much weight loss: Not applicable Eating poorly because of decreased appetite: No Nutrition screen score: 0 Nutrition Risks: No Nutritional Risk Patient : No : No Poor oral hygiene: No service: No Travel History Ebola Risk: Travel/Contact With Anyone From Affected Area/s: No Has Patient Experienced Ebola Symptoms: No Meds Allergies Allergy/AdvReac Type Severity Reaction Status Date / Time No Known Allergies Allergy Verified 10/20/24 06:51 Active Medications: Current Medications Acetaminophen (Acetaminophen 325 Mg Tablet) 650 mg PO Q6H PRN PRN Reason: Pain, Mild 1-3,fever,headache Last Admin: 10/19/24 12:11 Dose: 650 mg Albuterol/Ipratropium (Albuterol/Iprat 2.5/0.5mg 3 Ml Ampul.Neb) 3 ml INHALE Q4H PRN PRN Reason: Shortness of Breath/Wheezing Amlodipine Besylate (Amlodipine Besylate 5 Mg Tablet) 5 mg PO DAILY [facility]; Protocol Last Admin: 10/21/24 08:04 Dose: 5 mg Atorvastatin Calcium (Atorvastatin Calcium 40 Mg Tablet) 40 mg PO DAILY@0900 [facility] Last Admin: 10/21/24 08:04 Dose: 40 mg Calcium Carbonate (Calcium Carbonate 750 Mg Tab.Chew) 750 mg PO Q4H PRN PRN Reason: Heartburn Dextrose (Dextrose 50 % 25 Gm/50 Ml Syringe) 25 gm IVPUSH Q15M PRN; Protocol PRN Reason: per Hypoglycemia Standing Ord. Dextrose (Dextrose 50 % 25 Gm/50 Ml Syringe) 25 gm IVPUSH Q15M PRN; Protocol PRN Reason: per Hypoglycemia Standing Ord. Enoxaparin Sodium (Enoxaparin Sodium 80 Mg/0.8 Ml Syringe) 70 mg 1 mg/kg (70 mg) SUBCUT Q12H [facility] Last Admin: 10/21/24 09:29 Dose: 70 mg Fluticasone Propionate (Fluticasone Propionate Nasal 16 Gm [place]) 1 spray NOSTRIL-B BID [facility] Last Admin: 10/21/24 08:08 Dose: 1 spray Furosemide (Furosemide 20 Mg/2 Ml Vial) 20 mg IVPUSH DAILY [facility]; Protocol Last Admin: 10/21/24 08:03 Dose: 20 mg Glucose (Glucose Gel 15 Gm Gel..Gram.) 15 gm PO Q15M PRN; Protocol PRN Reason: per Hypoglycemia Standing Ord. Hydralazine HCl (Hydralazine Hcl 20 Mg/Ml Vial) 10 mg IVPUSH Q6H PRN; Protocol PRN Reason: SBP > 160 Last Admin: 10/19/24 00:48 Dose: 10 mg Hydrocortisone (Hydrocortisone 2.5 % Rectal Cr 30 Gm Tube) 1 appl [place] BEDTIME [facility] Last Admin: 10/20/24 21:07 Dose: 1 appl Insulin Glargine (Insulin Glargine,Hum.Rec.Anlog 100 Unit/Ml 10 Ml Vial) 30 unit SUBCUT DAILY@0900 [facility] Last Admin: 10/21/24 08:03 Dose: 30 unit Insulin Human Lispro (Insulin Lispro 100 Unit/Ml 3 Ml Vial) 0 unit SUBCUT Q6H [facility]; Protocol Last Admin: 10/21/24 06:04 Dose: Not Given Magnesium Hydroxide (Milk Of Magnesia 30 Ml Oral.Susp) 30 ml PO DAILY PRN PRN Reason: Constipation Melatonin (Melatonin 3 Mg Tablet) 6 mg PO BEDTIME PRN PRN Reason: Insomnia Last Admin: 10/19/24 22:16 Dose: 6 mg Metformin HCl (Metformin Hcl 850 Mg Tablet) 850 mg PO DAILY@2100 [facility] Last Admin: 10/20/24 20:37 Dose: 850 mg Metoprolol Tartrate (Metoprolol Tartrate 50 Mg Tablet) 50 mg PO BID [facility]; Protocol Last Admin: 10/21/24 08:04 Dose: 50 mg Mirtazapine (Mirtazapine 15 Mg Tablet) 15 mg PO BEDTIME PRN PRN Reason: Sleep Naloxone HCl (Naloxone Hcl 0.4 Mg/Ml Vial) 0.04 mg IVPUSH Q5M PRN PRN Reason: Excessive sedation or RR < 8 Omeprazole (Omeprazole 20 Mg Capsule.Dr) 20 mg PO DAILY@0630 [facility] Last Admin: 10/21/24 06:03 Dose: 20 mg Ondansetron HCl (Ondansetron Hcl 4 Mg/2 Ml Vial) 4 mg IVPUSH Q8H PRN PRN Reason: Nausea and Vomiting Pioglitazone HCl (Pioglitazone Hcl 30 Mg Tablet) 30 mg PO DAILY@09 [facility] Last Admin: 10/21/24 08:04 Dose: 30 mg Sodium Chloride (0.9 % Sodium Chloride Flush 3 Ml Syringe) 3 ml IVFLUSH QSHIFT [facility] Last Admin: 10/21/24 08:05 Dose: 3 ml Valsartan (Valsartan 160 Mg Tablet) 160 mg PO DAILY@09 [facility]; Protocol Last Admin: 10/21/24 08:04 Dose: 160 mg Warfarin Sodium (Warfarin Sodium 7.5 Mg Tablet) 7.5 mg PO TUTH@1800 [facility] Warfarin Sodium (Warfarin Sodium 5 Mg Tablet) 5 mg PO SUMOWE [facility] Last Admin: 10/20/24 13:47 Dose: Not Given Home Medications ?Medication ?Instructions ?Recorded ?Confirmed ?Last Taken ?Type atorvastatin 40 mg tablet 40 mg PO DAILY@89906/12/24 10/19/24 10/16/24 History insulin glargine 100 unit/mL (3 30 unit subcut DAILY@89906/12/24 10/19/24 10/16/24 History mL) subcutaneous pen (Lantus Solostar U-100 Insulin) metformin 850 mg tablet 850 mg PO DAILY@209906/12/24 10/19/24 10/16/24 History metoprolol tartrate 50 mg tablet 50 mg PO BID 06/12/24 10/19/24 10/16/24 History pioglitazone 30 mg tablet 30 mg PO DAILY@89906/12/24 10/19/24 10/16/24 History valsartan 160 mg tablet 160 mg PO DAILY@0900 06/12/24 10/19/24 10/16/24 History warfarin 5 mg tablet 7.5 mg PO TUTH@1800 06/12/24 10/19/24 10/14/24 History mirtazapine 15 mg tablet 15 mg PO BEDTIME PRN Sleep 07/16/24 10/19/24 07/14/24 History pantoprazole 40 mg tablet,delayed 40 mg PO DAILY@0630 07/16/24 10/19/24 10/16/24 History release warfarin 5 mg tablet 5 mg PO SUMOWEFRSA 07/16/24 10/19/24 10/16/24 History estradiol 0.01% (0.1 mg/gram) 1 appl vaginal MOWEFR 10/19/24 10/19/24 Unknown History vaginal cream fluticasone propionate 50 1 spray intranasal BID 10/19/24 10/19/24 10/16/24 History mcg/actuation nasal spray,suspension Physical Exam 2 Vital Signs: Vital Signs: Last Vital Signs Temp 97.5 F 10/21/24 07:39 Pulse 75 10/21/24 07:39 Resp 16 10/21/24 07:39 BP 131/63 10/21/24 07:39 Pulse Ox 94 10/21/24 07:39 O2 Del Method Room Air 10/21/24 07:39 O2 Flow Rate 3 10/20/24 10:51 BMI result Body Mass Index 36.9 Const: General: cooperative, comfortable, no acute distress, alert and awake Nutritional Appearance: obese Orientation/consciousness: patient oriented x3 HEENT: Head: Yes normocephalic and Yes atraumatic Neck: Neck: Yes trachea midline, Yes supple and Yes no JVD Resp: Effort & Inspection: normal respiratory effort Auscultation: clear to auscultation bilaterally Cardio: Jugular venous distension: no JVD Rate: regular rate Rhythm: r egular rhythm Heart sounds: S1 normal heart sound present, no click, no gallops and Murmur heart sound present systolic late, decrescendo and crescendo GI: Auscultation: normal bowel sounds Skin: General skin exam: no rashes or lesions noted and ecchymosis Neuro: General: patient oriented x3 and no focal motor deficits Extrem: General: Yes no clubbing, cyanosis or edema Psych: Appearance: grossly normal Objective Labs and Meds 10/21/24 06:02 10/21/24 06:02 Lab results: Laboratory Results - last 24 hr 10/20/24 10/20/24 10/20/24 10:47 13:09 17:06 WBC RBC Hgb Hct MCV MCH MCHC RDW Plt Count MPV Absolute Nucleated RBC Nucleated RBC % (auto) PT INR Sodium Potassium Chloride Carbon Dioxide Anion Gap BUN Creatinine Estim Creat Clear Calc Estimated GFR POC Glucose 130 H 142 H 166 H Random Glucose Calcium Magnesium B-Natriuretic Peptide 10/20/24 10/20/24 10/21/24 20:33 23:38 06:02 WBC 5.6 RBC 3.82 L Hgb 10.8 L Hct 33.9 L MCV 88.7 MCH 28.3 MCHC 31.9 RDW 14.7 Plt Count 243 MPV 11.0 Absolute Nucleated RBC 0.000 Nucleated RBC % (auto) 0.0 PT 16.9 H INR 1.5 H Sodium 143 Potassium 3.8 Chloride 104 Carbon Dioxide 31 H Anion Gap 12 BUN 17 H Creatinine 0.84 Estim Creat Clear Calc 45.0 Estimated GFR > 60 POC Glucose 264 H 165 H 133 H Random Glucose 128 H Calcium 9.1 Magnesium 1.8 B-Natriuretic Peptide 517 H 10/21/24 07:41 WBC RBC Hgb Hct MCV MCH MCHC RDW Plt Count MPV Absolute Nucleated RBC Nucleated RBC % (auto) PT INR Sodium Potassium Chloride Carbon Dioxide Anion Gap BUN Creatinine Estim Creat Clear Calc Estimated GFR POC Glucose 154 H Random Glucose Calcium Magnesium B-Natriuretic Peptide Assessment and Plan (1) Heart valve replaced: Status: Acute Patient with mechanical aortic valve replace probably of [place] type with increased gradient noted on echocardiogram. Clinically seems like she has a crisp closing click of the [place] aortic valve in valve dysfunction is less likely. Most likely cause for increased gradient could be patient prosthesis mismatch in the setting of anemia causing increased flow and increased gradients. However this needs to be watched and monitored by her sausage grinder. Discussed with the daughter about the same and advised follow-up echocardiogram in 3 months time. She is on warfarin therapy and has no overt significant bleeding source at this point time and warfarin needs to be restarted. I would maintain her INR between 2 and 3. SBE prophylaxis as per [facility] guidelines. (2) Acute CHF: Status: Acute Patient presents with shortness of breath with crackles as well as leg edema. She has underlying diastolic dysfunction possibly stenosis of the aortic valve which could be still causing her to have increase likelihood of getting congestive heart failure. Clinically appears today to be euvolemic and well compensated. In the past she was on Lasix therapy both was withheld as per the daughter because of syncopal episode in the past. I advised her to follow closely with her at home. I would restart Lasix at a lower dose at 20 mg daily because of her tendency for heart failure and persistently elevated BNP. I will also stop pioglitazone and switch to Jardiance 10 mg daily. Continue aggressive blood pressure control. Signs and symptoms of heart failure were discussed. Low-salt diet was discussed. Patient can be discharged from cardiac perspective. Will sign of the case. Thank you for allowing me to partake in her care Procedures Date of Service Date of Service: 10/21/24
[2024-10-21 11:32] LABS: Glucose, Whole Blood 262 mg/dL (60-115)
[2024-10-21] MEDS: Insulin Lispro 100 UNIT/ML 3 ML VIAL SUBCUT (12:01)
--- NOTE | 2024-10-21 12:47 | P.F2F_ITS ---
Service Date Service Date: 10/21/24 Encounter Date of encounter: 10/21/24 Reasons for Services Signs and symptoms assessed: bridging anticoagulation CHF Reason for [facility]: administration of IV, SQ, or IM injection, medication management, medication treatment and teach disease management MD Overseeing Care: Paco Schuler Homebound: Leaving the home is medically contraindicated at this time without the asist of a device and/or another person due th the listed conditions above and below. Reason homebound: weakness related to hospital stay Certification: Based on the above findings, I certify that this patient is confined to the home and needs intermittent [facility] care, physical therapy and/or speech therapy, or continues to need occupational therapy. The patient is under my care, and I have initiated the establishment of the plan of care. The patient will be followed by a physician who will periodically review the plan of care. Time Spent With Patient Time: Total time managing care of this patient today ____ minutes.
--- NOTE | 2024-10-21 12:56 | P.DS_ITS ---
DS: Providers Provider Date of Service: 10/21/24 Date of admission: 10/18/24 21:14 Date of discharge: 10/21/24 Primary care physician: Paco Schuler MD Consults: 10/18/24 23:02 Consult to Gastroenterology Routine Consulting Provider: Raven Royal Reason for consultation: GIB 10/21/24 08:58 Consult to Cardiology Routine Consulting Provider: [facility] Reason for consultation: stenosis of mechanical aortic valve DS: Diagnosis Discharge Diagnosis (1) History of mechanical aortic valve replacement: Status: Acute (2) Anticoagulated on warfarin: Status: Acute (3) Lower GI bleed: Status: Acute (4) Bleeding hemorrhoids: Status: Acute (5) Acute on chronic heart failure with preserved ejection fraction (HFpEF): Status: Acute (6) Acute respiratory failure with hypoxia: Status: Acute DS: Summary Hospital Course Hospital Course: From the history and physical by the admitting hospitalist, Nuzhat Anne NP, 10/18/24: Patient is a 78-year-old female speaks Trinidadian only with past medical history hypertension, insulin-dependent diabetes, syncope, history of GI bleed, COVID, aortic valve replacement with mechanical valve currently on Coumadin and INRs currently supratherapeutic, 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 Patient is currently on Coumadin for a mechanical aortic valve replacement and INR upon arrival was 3.2. Upon review with the attending Dr. Daniel we will not provide any reversal noted in the presence of a mechanical valve. Stool for occult positive. Transfusion not indicated at this time. Patient is not complaining of any abdominal pain, nausea or vomiting. Patient denies any history of hemorrhoids. Patient does acknowledge that she had surgery on her stomach which by definition was a angiectasia that was ablated back in 2019. Patient is questioning if this is related to that procedure. Patient states she has had a colonoscopy in the past and the results were normal. In addition patient's blood pressure was elevated and patient states her blood pressure can be elevated when she is in the hospital. Patient denies any issues anxiety or depression at this time. Patient was started on Protonix IV b.i.d. in the emergency department. No history of liver issues. We will make patient NPO at midnight. GI is being consulted. Repeat H&H pending.' 78yo F with HTN, DM2, recurrent syncope, hx GI bleed, mechanical aortic valve anticoagulated with warfarin presenting with painless hematochezia. Hospital course by problem: LGI bleed, hemorrhoidal - GI consulted, Dr Royal did EGD + C-scope 10/20 showing: mild gastritis hiatal hernia diverticulosis colon polyps internal hemorrhoids Plan: Await Pathology results Repeat Colonoscopy in 2-3 years if health allows or earlier if clinically indicated, next time use colowrap High fiber diet leaflet avoid straining at stool, epsom salts and sitz bath, anusol supps or cream - resumed warfarin with bridging anticoagulation as below acute hypoxic respiratory failure due to acute/chronic HFpEF - got 3 doses of IV furosemide 20 mg daily with rapid return to euvolemia. Discharged on furosemide 20 mg daily and should follow up with her soil technologist at [facility] within a month. - pioglitazone discontinued due to possible contribution to fluid overload; started empagliflozin 10 mg daily mechanical aortic valve - was bridged with therapeutic enoxaparin 1 mg/kg q12h while warfarin was held and INR 2; INR on 10/21 was 1.5 and enoxaparin 1 mg/kg q12h was prescribed to give while INR is <2 - TTE 10/19/24 showed: '1. Low normal LV ejection fraction 50-55% with moderately increased LV wall thickness with pseudonormal filling pattern 2. At least mildly dilated left atrium 3. Abnormally functioning mechanical aortic prosthesis with mean gradient of 27 mm Hg consistent with stenosis 4. Severe mitral annular calcification 5. Normal measured RV systolic pressure 6. Moderately dilated ascending aorta at 4.5 cm 7. No gross pericardial effusion Cardiology consulted. Valve dysfunction unlikely given crisp closing click of valve; increased gradient could be due to anemia causing increased flow. To follow up with her soil technologist at [facility] and recommend repeating echocardiogram in 3 months. Time Attestation Discharge Coordination Time (in mins): 45 Quality: Safe Use of Opioids Does Pt have an Active Cancer Diagnosis on the Problem List?: No Quality: Stroke Does the patient have a stroke diagnosis?: No Physical Exam Vital Signs: Vital Signs: Last Vital Signs Temp 97.5 F 10/21/24 07:39 Pulse 75 10/21/24 07:39 Resp 16 10/21/24 07:39 BP 131/63 10/21/24 07:39 Pulse Ox 94 10/21/24 07:39 O2 Del Method Room Air 10/21/24 07:39 O2 Flow Rate 3 10/20/24 10:51 BMI result Body Mass Index 36.9 Gen: in no acute distress HEENT: sclera anicteric, moist mucus membranes Neck: supple Lungs: diminished at bases bilaterally Heart: regular rate and rhythm, mechanical S2, systolic murmur Abd: soft, non-tender, non-distended Ext: no leg edema Skin: warm/well-perfused Neuro: alert and oriented x3, no focal findings Psych: appropriate affect DS: Data Data Completed and Pending Completed studies during hospitalization [Text1]: Laboratory Results WBC 5.6 X10*3/uL (4.8-10.8) 10/21/24 06:02 RBC 3.82 X10*6/uL (4.20-5.50) L 10/21/24 06:02 Hgb 10.8 g/dl (12.0-16.0) L 10/21/24 06:02 Hct 33.9 % (37.0-47.0) L 10/21/24 06:02 MCV 88.7 fL (80.0-98.0) 10/21/24 06:02 MCH 28.3 pg (27.0-33.0) 10/21/24 06:02 MCHC 31.9 g/dl (31.0-35.0) 10/21/24 06:02 RDW 14.7 % (11.0-16.0) 10/21/24 06:02 Plt Count 243 X10*3/uL (160-400) 10/21/24 06:02 MPV 11.0 fL (9.4-12.3) 10/21/24 06:02 Immature Gran % (Auto) 0.3 % (0.0-0.4) 10/19/24 05:39 Neut % (Auto) 73.1 % (45-73) H 10/19/24 05:39 Lymph % (Auto) 16.3 % (20-40) L 10/19/24 05:39 [place] % (Auto) 8.4 % (2-11) 10/19/24 05:39 Eos % (Auto) 1.4 % (0-4) 10/19/24 05:39 Baso % (Auto) 0.5 % (0-2) 10/19/24 05:39 Lymph # (Auto) 1.4 X10*3/uL (1.2-4.9) 10/19/24 05:39 [place] # (Auto) 0.7 X10*3/uL (0.1-1.2) 10/19/24 05:39 Eos # (Auto) 0.1 X10*3/uL (0.0-0.4) 10/19/24 05:39 Baso # (Auto) 0.0 X10*3/uL (0.0-0.2) 10/19/24 05:39 Abs Immat Gran (auto) 0.03 X10*3/uL (0.00-0.03) 10/19/24 05:39 Absolute Neuts (auto) 6.3 x10*3/uL (2.0-8.3) 10/19/24 05:39 Absolute Nucleated RBC 0.000 X10*3/uL (0.0-0.012) 10/21/24 06:02 Nucleated RBC % (auto) 0.0 /100WBC (0.0-0.2) 10/21/24 06:02 PT 16.9 SEC (10.9-12.4) H 10/21/24 06:02 INR 1.5 (0.9-1.1) H 10/21/24 06:02 Sodium 143 mmol/L (135-145) 10/21/24 06:02 Potassium 3.8 mmol/L (3.3-5.1) 10/21/24 06:02 Chloride 104 mmol/L (96-108) 10/21/24 06:02 Carbon Dioxide 31 mmol/L (22-29) H 10/21/24 06:02 Anion Gap 12 (12-20) 10/21/24 06:02 BUN 17 mg/dL (9-16) H 10/21/24 06:02 Creatinine 0.84 mg/dL (0.5-1.4) 10/21/24 06:02 Estim Creat Clear Calc 45.0 10/21/24 06:02 Estimated GFR > 60 10/21/24 06:02 POC Glucose 262 mg/dL (60-115) H 10/21/24 11:27 Random Glucose 128 mg/dL (60-115) H 10/21/24 06:02 Calcium 9.1 mg/dL (8.4-10.2) 10/21/24 06:02 Magnesium 1.8 mg/dL (1.6-2.6) 10/21/24 06:02 Total Bilirubin 0.4 mg/dL (0.0-1.0) 10/19/24 05:39 AST 26 U/L (5-31) 10/19/24 05:39 ALT 17 U/L (0-31) 10/19/24 05:39 Alkaline Phosphatase 96 U/L (39-117) 10/19/24 05:39 B-Natriuretic Peptide 517 pg/mL (<100) H 10/21/24 06:02 Total Protein 6.6 g/dL (6.5-8.0) 10/19/24 05:39 Albumin 3.9 g/dL (3.5-5.0) 10/19/24 05:39 Lipase 34 U/L (8-78) 10/18/24 16:02 Urine Color [place] A 10/18/24 20: Urine Appearance Clear 10/18/24 20:25 Urine pH 6.5 (5.0-9.0) 10/18/24 20:25 Ur Specific [place] 1.025 (1.005-1.025) 10/18/24 20:25 Urine Protein Negative mg/dL (Neg-Trace) 10/18/24 20:25 Urine Glucose (UA) Negative mg/dL (Negative) 10/18/24 20: Urine Ketones Negative mg/dL (Negative) 10/18/24 20: Urine Blood Large (3+) (Negative) H 10/18/24 20: Urine Nitrite Negative (Negative) 10/18/24 20:25 Ur Leukocyte Esterase Trace (Negative) H 10/18/24 20:25 Urine RBC >20 /HPF (0-2) H 10/18/24 20:25 Urine WBC 0-5 /HPF (0-5) 10/18/24 20:25 Ur Squamous Epith Cells 0-2 /HPF (0-2) 10/18/24 20:25 Urine Bacteria None Seen (None Seen) 10/18/24 20:25 Hyaline Casts 0-2 /LPF (0-2) 10/18/24 20:25 Stool Occult Blood POSITIVE (NEGATIVE) 10/18/24 16:40 Blood Type O Positive 10/18/24 16:43 Antibody Screen NEGATIVE 10/18/24 16:43 Pending studies at discharge: Pending at discharge 10/20/24 11:31 Surgical [PTH] Routine Discharge Plan Discharge Anticipated Discharge Date/Time: 10/21/24 12:48 Patient Disposition: Home Health Service Discharge Diagnosis: anticoagulated with warfarin for mechanical aortic valve minor lower GI bleeding due to hemorrhoids congestive heart failure exacerbation Referrals: Paco Schuler MD [Primary Care Provider] - 1 Week Discharge Medications: New enoxaparin 80 mg/0.8 mL Syringe 70 mg subcut Q12H Qty: 8 0RF Rx Instructions: use while INR is less than 2 hydrocortisone [Procto-Med HC] 2.5 % cream with perineal applicator 1 appl OR DAILY PRN (Reason: hemorrhoids) Qty: 30 0RF furosemide 20 mg tablet 20 mg PO QAM Qty: 30 0RF empagliflozin 10 mg tablet 10 mg PO DAILY Qty: 30 0RF Continued atorvastatin 40 mg tablet 40 mg PO DAILY@0900 metformin 850 mg tablet 850 mg PO DAILY@2100 metoprolol tartrate 50 mg tablet 50 mg PO BID valsartan 160 mg tablet 160 mg PO DAILY@0900 insulin glargine [Lantus Solostar U-100 Insulin] 100 unit/mL (3 mL) insulin pen 30 unit subcut DAILY@0900 warfarin 5 mg Tablet 7.5 mg PO TUTH@1800 Rx Instructions: in the evening pantoprazole 40 mg tablet,delayed release (DR/EC) 40 mg PO DAILY@0630 mirtazapine 15 mg tablet 15 mg PO BEDTIME PRN (Reason: Sleep) warfarin 5 mg Tablet 5 mg PO SUMOWEFRSA amlodipine 5 mg Tablet 5 mg PO DAILY Qty: 90 0RF Protocol: Hold for SBP< HOLD for SBP < : 90 estradiol 0.01 % (0.1 mg/gram) cream 1 appl vaginal MOWEFR fluticasone propionate 50 mcg/actuation spray,suspension 1 spray intranasal BID Discontinued pioglitazone 30 mg tablet 30 mg PO DAILY@0900 Discharge Orders: Discharge Order (Routine); Ordered 10/21/24 Ordered By: Bridgett Gill Diet: Diabetic diet Activity on Discharge: As tolerated Stand Alone Forms: Patient Portal Discharge page Print Language: Trinidadian Other Ambulatory Orders: Prothrombin Time INR (DAILY) Timeframe: 20241022 Facility: [facility] - Location: Laboratory Ordered By: Bridgett Gill Prothrombin Time INR (DAILY) Timeframe: 20241023 Facility: [facility] - Location: Laboratory Ordered By: Bridgett Gill Prothrombin Time INR (DAILY) Timeframe: 20241024 Facility: [facility] - Location: Laboratory Ordered By: Bridgett Gill Prothrombin Time INR (DAILY) Timeframe: 20241025 Facility: [facility] - Location: Laboratory Ordered By: Bridgett Gill Care Plan Goals: adequate anticoagulation cardiac health Health Concerns: anticoagulated with warfarin for mechanical aortic valve minor lower GI bleeding due to hemorrhoids congestive heart failure exacerbation Plan of Treatment: INR on 10/20 was 1.6. INR today [10/21] is 1.5. Continue warfarin as per prior dosing [7.5 mg on /, 5 mg on ////] and check INR daily until 2 or greater. While INR is less than 2, inject Lovenox [enoxaparin] 70 mg twice daily. high-fiber diet; avoid straining with defecating; take ehoc-yur-dmhphmn laxatives as needed; sitz baths with Epsom salts; hydrocortisone cream as needed for itching follow up with [facility] in 2 weeks for results of biopsies; repeat colonoscopy in 2-3 years take furosemide 20 mg daily Low-sodium diet: less than 2000 mg of sodium daily. Weigh yourself daily and call your doctor if your weight goes up by more than 3 lb/day or 5 lb/week. stop pioglitazone [Actos] as it may worsen fluid retention start empagliflozin [Jardiance] 10 mg daily follow up with your soil technologist at [facility] within 1 month Please follow up with your primary care doctor within 1 week. Return to the hospital if you experience recurrent or worsening symptoms. Assessment: See Discharge Summary. Patient Instructions: Hemorrhoids (GEN), Sitz Bath (DC)
--- NOTE | 2024-10-22 15:59 | P.CDIM_ITS ---
PROVIDER RESPONSE TEXT: To clarify, the appropriate diagnosis supported by the clinical indicators: Clinically unable to determine (explain): unknown chronicity QUERY TEXT: PHYSICIAN'S DOCUMENTATION REQUEST Date of Query: 10/21/2024 09:36 AM EDT Patient Name: Emily Whyte I Admit Date: 10/19/2024 Dear Bridgett Gill MD, A review of the medical record indicates additional documentation may be needed. Please review below and update the documentation accordingly. Clinical Indicators: Progress note 10/20/24 - GI Consulted - EGD & C-scope today showing: Mild Gastritis Prilosec, Tums Ex Clarify which of the following accurately represents further specificity regarding the Gastritis: Possible options might include: Gastritis acute, chronic, acute on chronic etc. Other specified Other (explain) Clinically unable to determine (explain) Thank you, Nadia Turcios, CCS, CDIS Use of terms such as suspected, likely, concern for, or probable (associated with a specific diagnosi s that is being evaluated, monitored, or treated as if it exists) are acceptable and can be coded in the inpatient se tting, when documented at the time of discharge. Please use your independent medical judgment in providing your response. THIS QUERY IS PART OF THE PERMANENT MEDICAL RECORD
== END 2024-10-21 13:23 | disposition home health service (06) | DRG 377 ==
LOC: HO.ED 21:09 → HO.EDOVER 21:25 → HO.S3 23:48
PROVIDERS: Internal Medicine Gastroenterology; Nurse Practitioner Family; Physician Assistant; Admitting Provider Internal Medicine; Emergency Provider Emergency Medicine; PCP Internal Medicine; Visit Provider Family Medicine
DX: K57.31 Diverticulosis of large intestine without perforation or abscess with bleeding (principal); I50.33 Acute on chronic diastolic (congestive) heart failure; J96.01 Acute respiratory failure with hypoxia; I48.0 Paroxysmal atrial fibrillation; E11.9 Type 2 diabetes mellitus without complications; K29.71 Gastritis, unspecified, with bleeding; K44.9 Diaphragmatic hernia without obstruction or gangrene; K64.0 First degree hemorrhoids; R79.1 Abnormal coagulation profile; Z95.2 Presence of prosthetic heart valve; Z79.4 Long term (current) use of insulin; Z79.01 Long term (current) use of anticoagulants; Z79.899 Other long term (current) drug therapy
CPT/HCPCS: 36415; 74178; 80048; 80053; 81001; 82272; 82947; 83690; 83735; 83880; 85014; 85018; 85025; 85027; 85610; 86850; 86900; 86901; 88305; 88313; 88342; 93005; 93306; 97161; 99285; J0360; J1650; J1938; J2003; J2470; J2704; Q9967

== ENCOUNTER → 2024-10-18 15:40 | Outpatient (BNV) | payer MEDICARE, SELFPAY | PROVIDERS: Admitting Provider Internal Medicine; Emergency Provider Emergency Medicine; Visit Provider Internal Medicine Cardiovascular Disease | DX: I44.0 Atrioventricular block, first degree (principal); I44.7 Left bundle-branch block, unspecified | CPT/HCPCS: 93010 ==

== ENCOUNTER → 2024-10-18 16:34 | Outpatient (BNV) | payer MEDICARE, SELFPAY | PROVIDERS: Emergency Provider Emergency Medicine; Visit Provider Student in an Organized Health Care Education/Training Program | DX: I51.7 Cardiomegaly (principal); J90 Pleural effusion, not elsewhere classified; R91.8 Other nonspecific abnormal finding of lung field | CPT/HCPCS: 74178 ==

== ENCOUNTER 2024-10-18 21:14 | Outpatient (BNV) | payer MEDICARE, SELFPAY | END 2024-10-19 07:00 | PROVIDERS: Admitting Provider Internal Medicine; Emergency Provider Emergency Medicine; PCP Internal Medicine; Visit Provider Internal Medicine Cardiovascular Disease | DX: T82.857A Stenosis of other cardiac prosthetic devices, implants and grafts, initial encounter (principal); Z95.2 Presence of prosthetic heart valve; I34.0 Nonrheumatic mitral (valve) insufficiency | CPT/HCPCS: 93306 ==

== ENCOUNTER → 2024-10-18 21:14 | Outpatient (BNV) | payer MEDICARE, SELFPAY | PROVIDERS: Admitting Provider Internal Medicine; Emergency Provider Emergency Medicine; PCP Internal Medicine; Visit Provider Internal Medicine Cardiovascular Disease | DX: I50.9 Heart failure, unspecified (principal); Z95.2 Presence of prosthetic heart valve | CPT/HCPCS: 99222 ==

== ENCOUNTER → 2024-10-18 21:14 | Outpatient (BNV) | payer MEDICARE, SELFPAY | PROVIDERS: Admitting Provider Internal Medicine; Emergency Provider Emergency Medicine; Visit Provider Internal Medicine Gastroenterology | DX: K92.2 Gastrointestinal hemorrhage, unspecified (principal); K29.70 Gastritis, unspecified, without bleeding; D12.0 Benign neoplasm of cecum; D12.2 Benign neoplasm of ascending colon; D12.3 Benign neoplasm of transverse colon; K57.30 Diverticulosis of large intestine without perforation or abscess without bleeding; K64.0 First degree hemorrhoids | CPT/HCPCS: 43239; 45380; 45385; 99232; 99233 ==

== ENCOUNTER → 2024-10-18 21:14 | Outpatient (BNV) | payer MEDICARE, SELFPAY | PROVIDERS: Admitting Provider Internal Medicine; Emergency Provider Emergency Medicine; Visit Provider Nurse Practitioner Family | DX: K92.2 Gastrointestinal hemorrhage, unspecified (principal) | CPT/HCPCS: 99223; 99232 ==

== ENCOUNTER 2024-10-31 08:28 | Emergency (ER) | payer MEDICARE, SELFPAY ==
--- NOTE | ~2024-10-31 | XR_ITS ---
CLINICAL HISTORY: pain no injury 4 views right knee Comparison: None Findings: No fractures, subluxations or dislocations. Joint intervals are preserved. Total knee arthroplasty in anatomic alignment Normal patellar alignment. Moderate suprapatellar joint effusion.No prepatellar soft tissue swelling. Mild calcified atherosclerotic disease No unusual radiopaque foreign body. Impression: 1. Moderate suprapatellar joint effusion. Total knee arthroplasty in anatomic alignment without evidence of hardware complication. This document has been electronically signed by: Isaak Escalante MD on 10/31/2024 09:14:24
--- NOTE | ~2024-10-31 | US_ITS ---
CLINICAL HISTORY: leg pain, posterior knee pain --- Additional Notes or Special Instructions: r o DVT Bakers cyst Right Lower Extremity Venous Duplex Ultrasound COMPARISON: None FINDINGS: The visualized deep veins are compressible with normal flow. The visualized superficial veins are patent. Unremarkable soft tissues. No popliteal cyst. Grayscale, spectral waveform analysis, and color flow imaging was performed. IMPRESSION: No DVT seen in the right lower extremity. No popliteal cyst. This document has been electronically signed by: Jose Fam MD on 10/31/2024 13:17:13
[2024-10-31 08:32] VITALS: BP 160/59; PULSE 66; RESP 17; TEMP 36.6; O2SAT 97; BMI 32.3
--- NOTE | 2024-10-31 11:12 | ED.LOWEXIN ---
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 Patient has a total knee replacement on that side, reports that she has been in the garden recently over the last several days. She has been taking Tylenol for her symptoms which has provided her with some relief.She denies any fevers, chills, chest pain, shortness of breath, abdominal pain, nausea, vomiting or diarrhea. Denies any recent falls or trauma. No other complaints or concerns at this time. MD complaint: other ( Knee pain) Onset (ago): day(s) Severity: moderate Relieving factors: rest Exacerbating factors: weight bearing, movement and palpation Associated symptoms: swelling Other symptoms: none Related Data Home Medications ?Medication ?Instructions ?Recorded ?Confirmed atorvastatin 40 mg tablet 40 mg PO DAILY@89906/12/24 10/31/24 insulin glargine 100 unit/mL (3 30 unit subcut DAILY@89906/12/24 10/31/24 mL) subcutaneous pen (Lantus Solostar U-100 Insulin) metformin 850 mg tablet 850 mg PO DAILY@2100 06/12/24 10/31/24 metoprolol tartrate 50 mg tablet 50 mg PO BID 06/12/24 10/31/24 valsartan 160 mg tablet 160 mg PO DAILY@0900 06/12/24 10/31/24 warfarin 5 mg tablet 7.5 mg PO TUTH@1800 06/12/24 10/31/24 mirtazapine 15 mg tablet 15 mg PO BEDTIME PRN Sleep 07/16/24 10/31/24 pantoprazole 40 mg tablet,delayed 40 mg PO DAILY@0607/16/24 10/31/24 release warfarin 5 mg tablet 5 mg PO SUMOWEFRSA 07/16/24 10/31/24 estradiol 0.01% (0.1 mg/gram) 1 appl vaginal MOWEFR 10/19/24 10/31/24 vaginal cream fluticasone propionate 50 1 spray intranasal BID 10/19/24 10/31/24 mcg/actuation nasal spray,suspension furosemide 20 mg tablet 20 mg PO DAILY 10/31/24 10/31/24 Previous Rx's ?Medication ?Instructions ?Recorded amlodipine 5 mg tablet 5 mg PO DAILY #90 tabs 07/19/24 empagliflozin 10 mg tablet 10 mg PO DAILY #30 tabs 10/21/24 enoxaparin 80 mg/0.8 mL 70 mg (0.7 mL) subcut Q12H #8 mL 10/21/24 subcutaneous syringe hydrocortisone 2.5 % topical cream 1 appl MI DAILY PRN hemorrhoids 10/21/24 with perineal applicator #30 grams (FolioDynamix HC) Allergies Allergy/AdvReac Type Severity Reaction Status Date / Time No Known Allergies Allergy Verified 10/31/24 08:32 Review of Systems Review of Systems: Yes all other systems are reviewed and are negative Constitutional: Constitutional: Reports as per [facility] Past Medical History Medical History Angiectasia AVM (arteriovenous malformation) of colon On warfarin therapy Anemia Breast cancer Diabetes Anticoagulated on Coumadin Hypertension Surgical History Status post ablation of incompetent vein using laser Heart valve replaced Social History Social History Household Members: Children Housing: House Are you a primary coronary care unit nurse to a significant other at home: No Do you presently have visiting nurse or other home services: No Unable to assess alcohol history related to: Unknown Alcohol intake: never Patient Tobacco Use Status: Never used Tobacco Smoked in Last 30 Days: No Use of substances other than those prescribed or required for medical reasons: Unknown Advance Directives: Yes Advance Directives on File: Yes Advance Directives Date on File: 07/16/24 Do you have a plan to hurt others: No Plan service: No Physical Exam Vital Signs: Vital Signs: Last Vital Signs Temp 98 F 11/01/24 08:34 Pulse 83 11/01/24 08:34 Resp 16 11/01/24 08:34 BP 160/73 H 06/09/25 08:34 Pulse Ox 95 11/01/24 08:34 O2 Del Method Room Air 11/01/24 08:34 BMI result Body Mass Index 32.3 Const: General: cooperative, comfortable and no acute distress Orientation/consciousness: patient oriented x3 Limitations: no limitations HEENT: Head: Yes normal to inspection, Yes normocephalic and Yes atraumatic Ears: hearing grossly normal bilaterally General nose exam: Normal external nose present Face and sinus: Yes normal facial exam Mouth: Normal oral and palatal mucosa present, oropharynx normal and moist mucous membranes Throat: Yes posterior oropharynx normal Eyes: General: appearance normal, both eyes and all related structures Eyelids: Yes eyelids normal Conjunctivae: conjunctivae normal Sclerae: sclerae normal Pupils: Equal, round and reactive pupils present EOM: EOMs intact bilaterally Neck: Neck: Yes normal visual inspection, Yes full ROM and Yes no lymphadenopathy Lymphatic: no lymphadenopathy noted Chest: Chest palpation & inspection: normal inspection of the chest Resp: Effort & Inspection: normal respiratory effort and able to speak in complete sentences Auscultation: clear to auscultation bilaterally, no crackles, no rales, no rhonchi and no wheezes Cardio: Rate: regular rate Rhythm: regular rhythm Heart sounds: S1 normal heart sound present and S2 normal heart sound present GI: Inspection: Yes normal to inspection Skin: General skin exam: no rashes or lesions noted Trauma: no lacerations or abrasions Wounds: no wounds Neuro: General: patient oriented x3 and moves all extremities Cranial nerves: Yes Equal, round and reactive pupils present Extrem: Other: right knee with no obvious bony deformity. Patient with diffuse tenderness throughout knee joint. well healed knee surgical scar noted on the anterior aspect, able to flex and extend at the knee with pain appreciated. No overlying erythema. No pedal edema, no calf tenderness. Pain and fullness noted to her posterior knee. Strong DP pulse. Leg is well perfused. General: Yes normal to inspection Right upper extremity: normal to inspection Left upper extremity: normal to inspection Right lower extremity: normal to inspection Left lower extremity: normal to inspection Course Reevaluation(s) Reevaluation #1: Physician observation continued. INR remains therapeutic this am. Per Maryan from , PT is recommending home services, patient already active with [facility]. Observation care revealed that patient does not meet medical necessity for hospitalization. Final disposition discussed with patient. The patient completed observation care at 09:25 11/01/24. Time: 09:22 Medications Administered Generic Name Dose Route Start Last Admin Trade Name Oumou PRN Reason Stop Dose Admin Amlodipine Besylate 5 mg 11/01/24 09:00 11/01/24 08:55 Amlodipine Besylate 5 Mg Tablet PO 5 mg DAILY JUANITA Administration Protocol Atorvastatin Calcium 40 mg 11/01/24 09:00 11/01/24 08:55 Atorvastatin Calcium 40 Mg Tablet PO 40 mg DAILY@0900 JUANITA Administration Empagliflozin 10 mg 11/01/24 09:00 11/01/24 08:55 Empagliflozin 10 Mg Tablet PO 10 mg DAILY JUANITA Administration Fluticasone Propionate 1 spray 10/31/24 21:00 11/01/24 08:55 Fluticasone Propionate Nasal 16 Gm [place] NOSTRIL-B Not Given BID [facility] Furosemide 20 mg 11/01/24 09:00 11/01/24 08:55 Furosemide 20 Mg Tablet PO 20 mg DAILY JUANITA Administration Protocol Insulin Glargine 30 unit 11/01/24 09:00 11/01/24 08:54 Insulin Glargine,Hum.Rec.Anlog 100 Unit/Ml 10 Ml Vial SUBCUT 30 unit DAILY@0900 [facility] Administration Metformin HCl 850 mg 10/31/24 21:00 10/31/24 21:30 Metformin Hcl 850 Mg Tablet PO 850 mg DAILY@2100 [facility] Administration Metoprolol Tartrate 50 mg 10/31/24 21:00 11/01/24 08:56 Metoprolol Tartrate 50 Mg Tablet PO 50 mg BID JUANITA Administration Protocol Mirtazapine 15 mg 10/31/24 18:28 10/31/24 20:59 Mirtazapine 15 Mg Tablet PO 15 mg BEDTIME PRN Administration Sleep Omeprazole 20 mg 11/01/24 06:30 11/01/24 08:55 Omeprazole 20 Mg Capsule.Dr PO 20 mg DAILY@0630 [facility] Administration Valsartan 160 mg 11/01/24 09:00 11/01/24 08:55 Valsartan 160 Mg Tablet PO 160 mg DAILY@0900 [facility] Administration Protocol Warfarin Sodium 5 mg 11/01/24 18:00 10/31/24 21:02 Warfarin Sodium 2.5 Mg Tablet PO 5 mg SuMoWeFrSa@1800 JUANITA Administration Discontinued Medications Generic Name Dose Route Start Last Admin Trade Name Freq PRN Reason Stop Dose Admin Acetaminophen 650 mg 10/31/24 16:37 10/31/24 17:02 Acetaminophen 325 Mg Tablet PO 10/31/24 16:38 650 mg ONCE ONE Administration Acetaminophen 975 mg 11/01/24 00:16 11/01/24 02:30 Acetaminophen 325 Mg Tablet PO 11/01/24 00:17 975 mg ONCE ONE Administration Oxycodone HCl 2.5 mg 10/31/24 12:22 10/31/24 12:48 Oxycodone Hcl Immed Release 5 Mg Tablet PO 10/31/24 12:23 2.5 mg ONCE ONE Administration Oxycodone HCl 2.5 mg 10/31/24 20:32 10/31/24 20:59 Oxycodone Hcl Immed Release 5 Mg Tablet PO 10/31/24 20:33 2.5 mg ONCE ONE Administration Warfarin Sodium 5 mg 10/31/24 18:30 10/31/24 21:03 Warfarin Sodium 5 Mg Tablet PO Not Given SUMOWEFRSA [facility] Medical Decision Making Medical Decision Making [facility] Narrative: This is a 78-year-old female, who presents emergency department for evaluation of right knee pain. On arrival, blood pressure slightly elevated at 160/59, all other vital signs within normal limits. She is here with family. no new trauma or injury to her knee. Family reports that she has been a lot of time in her garden as well as a lot of walking as [facility]. She is typically ambulatory however states that over the last week she has had worsening pain with ambulation. She lives with family however they do not have services, and family reports that they do not feel comfortable with patient being home with her pain that she is having in her right knee. Will obtain basic labs, x-ray, and ultrasound. We will give small dose of oxycodone to help with pain. She did take Tylenol this morning therefore will defer until she is eligible for another dose. Course labs returned, she has no leukocytosis, she has a normocytic anemia with an H&H of 9.5/29.5 this is similar to her previous. Chemistry revealing no significant electrolyte derangement. INR elevated at 2.8. Per family, she is currently on Lovenox, they are waiting to transition back to Coumadin > until INR is greater than 2. INR is 2.8, therefore will start back on Coumadin. ultrasound negative for DVT. Patient will be seen by physical therapy and case management tomorrow for further management for safe disposition. Differential Diagnosis Differential Diagnoses: The differential diagnosis associated with the presentation includes strain, sprain, contusion, osteoarthritis, gout-unlikely Admission/Observation Consideration of admission/observation: Escalation of care including admission/observation considered Lab Data [facility] Lab Attestation statement: I reviewed the patient's lab results. See MDM and course 10/31/24 14:52 10/31/24 14:52 Labs: Lab Results 10/31/24 10/31/24 11/01/24 Range/Units 14:52 18:31 05:56 WBC 8.5 (4.8-10.8) X10*3/uL RBC 3.34 L (4.20-5.50) X10*6/uL Hgb 9.5 L (12.0-16.0) g/dl Hct 29.5 L (37.0-47.0) % MCV 88.3 (80.0-98.0) fL MCH 28.4 (27.0-33.0) pg MCHC 32.2 (31.0-35.0) g/dl RDW 14.0 (11.0-16.0) % Plt Count 255 (160-400) X10*3/uL MPV 9.2 L (9.4-12.3) fL Immature Gran % (Auto) 0.2 (0.0-0.4) % Neut % (Auto) 71.5 (45-73) % Lymph % (Auto) 17.3 L (20-40) % Terry % (Auto) 9.2 (2-11) % Eos % (Auto) 1.4 (0-4) % Baso % (Auto) 0.4 (0-2) % Lymph # (Auto) 1.5 (1.2-4.9) X10*3/uL Terry # (Auto) 0.8 (0.1-1.2) X10*3/uL Eos # (Auto) 0.1 (0.0-0.4) X10*3/uL Baso # (Auto) 0.0 (0.0-0.2) X10*3/uL Abs Immat Gran (auto) 0.02 (0.00-0.03) X10*3/uL Absolute Neuts (auto) 6.0 (2.0-8.3) x10*3/uL Absolute Nucleated RBC 0.000 (0.0-0.012) X10*3/uL Nucleated RBC % (auto) 0.0 (0.0-0.2) /100WBC PT 32.2 H D 29.8 H (10.9-12.4) SEC INR 2.8 H 2.6 H (0.9-1.1) Sodium 147 H (135-145) mmol/L Potassium 4.2 (3.3-5.1) mmol/L Chloride 108 (96-108) mmol/L Carbon Dioxide 28 (22-29) mmol/L Anion Gap 15 (12-20) BUN 15 (9-16) mg/dL Creatinine 0.91 (0.5-1.4) mg/dL Estim Creat Clear Calc 44.1 Estimated GFR 60 POC Glucose 76 (60-115) mg/dL Random Glucose 85 (60-115) mg/dL Calcium 9.4 (8.4-10.2) mg/dL Total Bilirubin 0.2 (0.0-1.0) mg/dL AST 35 H (5-31) U/L ALT 26 (0-31) U/L Alkaline Phosphatase 84 (39-117) U/L Total Protein 7.0 (6.5-8.0) g/dL Albumin 4.4 (3.5-5.0) g/dL 11/01/24 Range/Units 07:15 WBC (4.8-10.8) X10*3/uL RBC (4.20-5.50) X10*6/uL Hgb (12.0-16.0) g/dl Hct (37.0-47.0) % MCV (80.0-98.0) fL MCH (27.0-33.0) pg MCHC (31.0-35.0) g/dl RDW (11.0-16.0) % Plt Count (160-400) X10*3/uL MPV (9.4-12.3) fL Immature Gran % (Auto) (0.0-0.4) % Neut % (Auto) (45-73) % Lymph % (Auto) (20-40) % Terry % (Auto) (2-11) % Eos % (Auto) (0-4) % Baso % (Auto) (0-2) % Lymph # (Auto) (1.2-4.9) X10*3/uL Terry # (Auto) (0.1-1.2) X10*3/uL Eos # (Auto) (0.0-0.4) X10*3/uL Baso # (Auto) (0.0-0.2) X10*3/uL Abs Immat Gran (auto) (0.00-0.03) X10*3/uL Absolute Neuts (auto) (2.0-8.3) x10*3/uL Absolute Nucleated RBC (0.0-0.012) X10*3/uL Nucleated RBC % (auto) (0.0-0.2) /100WBC PT (10.9-12.4) SEC INR (0.9-1.1) Sodium (135-145) mmol/L Potassium (3.3-5.1) mmol/L Chloride (96-108) mmol/L Carbon Dioxide (22-29) mmol/L Anion Gap (12-20) BUN (9-16) mg/dL Creatinine (0.5-1.4) mg/dL Estim Creat Clear Calc Estimated GFR POC Glucose 144 H (60-115) mg/dL Random Glucose (60-115) mg/dL Calcium (8.4-10.2) mg/dL Total Bilirubin (0.0-1.0) mg/dL AST (5-31) U/L ALT (0-31) U/L Alkaline Phosphatase (39-117) U/L Total Protein (6.5-8.0) g/dL Albumin (3.5-5.0) g/dL Radiology Impression Discussion of test interpretation with radiology: I have reviewed the radiologist's reading. Radiologist Impression: FINDINGS: The visualized deep veins are compressible with normal flow. The visualized superficial veins are patent. Unremarkable soft tissues. No popliteal cyst. Grayscale, spectral waveform analysis, and color flow imaging was performed. IMPRESSION: No DVT seen in the right lower extremity. No popliteal cyst. This document has been electronically signed by: Jose Fam MD on 10/31/2024 13:17:13 Dictated By: Jose Fam MD Findings: No fractures, subluxations or dislocations. Joint intervals are preserved. Total knee arthroplasty in anatomic alignment Normal patellar alignment. Moderate suprapatellar joint effusion.No prepatellar soft tissue swelling. Mild calcified atherosclerotic disease No unusual radiopaque foreign body. Impression: 1. Moderate suprapatellar joint effusion. Total knee arthroplasty in anatomic alignment without evidence of hardware complication. This document has been electronically signed by: Isaak Escalante MD on 10/31/2024 09:14:24 Dictated By: Isaak Escalante MD External Record Review External record reviewed: Outside ED record Discharge Plan Discharge Clinical Impression: Knee pain Patient Disposition: Home, Self-Care Additional Instructions: You were evaluated in the ED for knee pain, and physical therapy recommended home services which you have through [facility]. You were restarted on your coumadin in the ED as your INR was therapeutic, continue to take this as previously prescribed and follow up with your primary care provider. Return with any new or concerning symptoms. Prescriptions: No Action atorvastatin 40 mg tablet 40 mg PO DAILY@0900 metformin 850 mg tablet 850 mg PO DAILY@2100 metoprolol tartrate 50 mg tablet 50 mg PO BID valsartan 160 mg tablet 160 mg PO DAILY@0900 insulin glargine [Lantus Solostar U-100 Insulin] 100 unit/mL (3 mL) insulin pen 30 unit subcut DAILY@0900 warfarin 5 mg Tablet 7.5 mg PO TUTH@1800 Rx Instructions: in the evening pantoprazole 40 mg tablet,delayed release (DR/EC) 40 mg PO DAILY@0630 mirtazapine 15 mg tablet 15 mg PO BEDTIME PRN (Reason: Sleep) warfarin 5 mg Tablet 5 mg PO SUMOWEFRSA amlodipine 5 mg Tablet 5 mg PO DAILY Qty: 90 0RF Protocol: Hold for SBP< HOLD for SBP < : 90 estradiol 0.01 % (0.1 mg/gram) cream 1 appl vaginal MOWEFR fluticasone propionate 50 mcg/actuation spray,suspension 1 spray intranasal BID enoxaparin 80 mg/0.8 mL Syringe 70 mg subcut Q12H Qty: 8 0RF Rx Instructions: use while INR is less than 2 hydrocortisone [Procto-Med HC] 2.5 % cream with perineal applicator 1 appl MI DAILY PRN (Reason: hemorrhoids) Qty: 30 0RF empagliflozin 10 mg tablet 10 mg PO DAILY Qty: 30 0RF furosemide 20 mg tablet 20 mg PO DAILY Referrals: [facility] [Outside] Print Language: Chinese
--- OUTSIDE RECORDS SUMMARY | 2024-10-31 11:20 | XMS_ITS | Encounter Summary ---
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 Name Role Phone Paco Schuler MD Primary Care Provider [phone] Reason for Visit * Reason Onset Date Comments Transfer of Care Form 10/22/2024 Encounter Details Date Type Department Care Team (Late st Contact Info) Description 10/22/2024 Telephone [facility] Cardiology [address] [place] [address] Diilp Dykes MD [address] [place] [address] [address] [place], [place] [id number] Transfer of Care Form Social History Tobacco Use Types Packs/Day Years [...] as of this encounter Progress Notes * Janett Calvo - 10/29/2024 9:47 AM EDT 10/29/24 I received the AIDAN from Vanesa at [facility] [place]. Will give to Dr. Dudley to sign today. * Vanesa Ramos - 10/28/2024 11:56 AM EDT I received the signed Transfer of Care Form back from Dr Dykes. I sent it to Paige Calvo on 10/28/[address] Dudley to sign. * Vanesa Ramos - 10/22/2024 11:50 AM EDT Patient called and is requesting to transfer her care from Dr Dykes to Dr Dudley. Transfer of Careform given to Dr Dykes's ophthalmic medical technician for him to sign. documented in this encounter Plan of Treatment Not on file documented as of this encounter Visit Diagnoses Not on filedocumented in this encounter Care Teams Electric Motor And Generator Assembler Relationship Specialty Start Date End Date Paco Schuler MD [address] [place] [address] PCP - General Internal Medicine 04/28/20 documented as of this encounter
[2024-10-31] MEDS: oxyCODONE HCl Immed Release 5 MG TABLET 2.5 MG PO ×2 (12:48→20:59)
[2024-10-31 13:23] VITALS: BP 187/77; PULSE 74; RESP 16; TEMP 36.2; O2SAT 94
--- NOTE | 2024-10-31 14:35 | PC.NURSE ---
This Nurse tried contacting family for current medication list no answer. Will attempt to reach family again, pt unclear of the doses and some medication she takes.
[2024-10-31 14:56] LABS: MANUAL DIFF FLAG NO
[2024-10-31 14:59] LABS: Basophils Percent Auto 0.4 % (0-2); Eosinophils Absolute Auto 0.1 X10*3/uL (0.0-0.4); Eosinophils Percent Auto 1.4 % (0-4); Hematocrit 29.5 % (37.0-47.0); Hemoglobin 9.5 g/dl (12.0-16.0); Imm Gran Abs Auto 0.02 X10*3/uL (0.00-0.03); Imm Gran Pct Auto 0.2 % (0.0-0.4); Lymphocytes Absolute Auto 1.5 X10*3/uL (1.2-4.9); Lymphocytes Percent Auto 17.3 % (20-40); Mean Corpuscular HGB Conc 32.2 g/dl (31.0-35.0); Mean Corpuscular Hemoglobin 28.4 pg (27.0-33.0); Mean Corpuscular Volume 88.3 fL (80.0-98.0); Mean Platelet Volume 9.2 fL (9.4-12.3); Monocytes Absolute Auto 0.8 X10*3/uL (0.1-1.2); Monocytes Percent Auto 9.2 % (2-11); Neutrophils Percent Auto 71.5 % (45-73); Platelet Count 255 X10*3/uL (160-400); Red Blood Count 3.34 X10*6/uL (4.20-5.50); White Blood Count 8.5 X10*3/uL (4.8-10.8)
[2024-10-31 15:04] LABS: INTERNATIONAL NORM RATIO 2.8 (0.9-1.1); Prothrombin Time 32.2 SEC (10.9-12.4)
[2024-10-31 15:17] LABS: Alanine Aminotransferase 26 U/L (0-31); Albumin Level 4.4 g/dL (3.5-5.0); Anion Gap 15 (12-20); Aspartate Amino Transferase 35 U/L (5-31); Bilirubin Total 0.2 mg/dL (0.0-1.0); Blood Urea Nitrogen 15 mg/dL (9-16); Calcium 9.4 mg/dL (8.4-10.2); Carbon Dioxide 28 mmol/L (22-29); Chloride 108 mmol/L (96-108); Creatinine Clr Calc Pharmacy 44.1; Estimated Glomerular Filt Rate 60; Glucose Random 85 mg/dL (60-115); Potassium 4.2 mmol/L (3.3-5.1); Sodium 147 mmol/L (135-145)
[2024-10-31 15:50] VITALS: BP 175/80; PULSE 77; RESP 16; TEMP 37.1; O2SAT 95
[2024-10-31 16:16] LABS: Alkaline Phosphatase 84 U/L (39-117)
[2024-10-31] MEDS: Acetaminophen 325 MG TABLET 650 MG PO (17:02)
--- NOTE | 2024-10-31 18:13 | PC.NURSE ---
This Nurse tried to reach family for med rec again no answer. Provider Esteban called Pharmacy to update Med Rec.
[2024-10-31 18:21] VITALS: BP 157/63; PULSE 78; RESP 18; TEMP 36.6; O2SAT 94
--- NOTE | 2024-10-31 18:22 | PHA.MEDREC ---
Pharmacy Consult ? Medication Reconciliation Pharmacy has completed the medication reconciliation. Utilized pharmacy claims and discharge orders from 10/21 to complete med rec. Waiting on provider discretion to include Enoxaparin as it was filled to only be used if INR is <2.0 and it is currently 2.8.
[2024-10-31 18:34] LABS: Glucose, Whole Blood 76 mg/dL (60-115)
--- NOTE | 2024-10-31 18:42 | MHC.EDTECH ---
patient request bed sanz patient is clean. brought patient dinner tray. nurse aware.
[2024-10-31] MEDS: Warfarin Sodium 2.5 MG TABLET 5 MG PO (20:59)
[2024-10-31] MEDS: Mirtazapine 15 MG TABLET PO (20:59)
[2024-10-31 21:30] VITALS: BP 161/71; PULSE 79; RESP 18; TEMP 36.6; O2SAT 98
[2024-10-31] MEDS: Metoprolol Tartrate 50 MG TABLET PO (21:30)
[2024-10-31] MEDS: metFORMIN HCl 850 MG TABLET PO (21:30)
[2024-10-31] MEDS: Fluticasone Propionate Nasal 16 GM SPRAY 1 SPRAY NOSTRIL-B (21:30)
[2024-11-01] MEDS: Acetaminophen 325 MG TABLET 975 MG PO (02:30)
--- NOTE | 2024-11-01 02:33 | PC.NURSE ---
up to use commode x1 assist at bedside, patient tolerated well
[2024-11-01 05:50] VITALS: BP 158/82; PULSE 80; RESP 18; TEMP 36; O2SAT 94
[2024-11-01 06:20] LABS: INTERNATIONAL NORM RATIO 2.6 (0.9-1.1); Prothrombin Time 29.8 SEC (10.9-12.4)
[2024-11-01 07:18] LABS: Glucose, Whole Blood 144 mg/dL (60-115)
[2024-11-01 08:34] VITALS: BP 160/73; PULSE 83; RESP 16; TEMP 36.6; O2SAT 95
[2024-11-01] MEDS: Insulin Glargine,Hum.rec.anlog 100 UNIT/ML 10 ML VIAL 30 UNIT SUBCUT (08:54)
[2024-11-01] MEDS: Valsartan 160 MG TABLET PO (08:55)
[2024-11-01] MEDS: Omeprazole 20 MG CAPSULE.DR PO (08:55)
[2024-11-01] MEDS: Atorvastatin Calcium 40 MG TABLET PO (08:55)
[2024-11-01] MEDS: amLODIPine Besylate 5 MG TABLET PO (08:55)
[2024-11-01] MEDS: Empagliflozin 10 MG TABLET PO (08:55)
[2024-11-01] MEDS: Furosemide 20 MG TABLET PO (08:55)
[2024-11-01] MEDS: Metoprolol Tartrate 50 MG TABLET PO (08:56)
--- NOTE | 2024-11-01 09:21 | MHC.CM.ED ---
Received case management consult overnight. Patient came to the ER due to knee pain. Work up essentially negative. Physical therapy eval completed. Home with services is recommended. Patient was d/c'd [place] [facility] [place]24 with [facility]. Referral made to [facility] to verify is patient is active with their agency. Family is at patient's bedside per GERMAINE Oneill. Danita BARRERA made aware. Continue to monitor for d/c needs.
--- NOTE | 2024-11-01 10:08 | MHC.CM.ED ---
Addendum entered by Maryan Blue 11/01/24 10:11: Violeta also stated patient does not have 24/7 care. T/W explained [facility] would not authorize STR just because of lack of 24/7 care. Original Note: Received notification from GERMAINE Oneill , that patient's [id number], Violeta requesting return telephone call because she does not feel patient is safe to return home. Spoke with Violeta via telephone at [phone]. Violeta stated There is no way short term rehab isn't recommended. She couldn't even walk. We had to carry her. T/w explained patient was able to ambulate safely with physical therapist and STR would have been recommended if was approrpiate. Also explained STR options can be found but would be privately paid at $10,000-$14,000 a month up front. Violeta requesting to speak with physical therapist. Shey made aware and requested to speak with Violeta. Continue to monitor for d/c needs.
[2024-11-01 10:20] LABS: Influenza A PCR NEGATIVE (Negative); Influenza B PCR NEGATIVE (Negative); Resp Syncy Virus RNA Qual PCR NEGATIVE (Negative); SARS COV2 PCR INHOUSE NEGATIVE (Negative)
[2024-11-01 11:27] LABS: Glucose, Whole Blood 203 mg/dL (60-115)
--- NOTE | 2024-11-01 11:51 | PC.NURSE ---
Assumed care of this patient at 1100, patient currently resting quietly on hospital bed eating lunch. Plan for patient to go home w/ services, CM to coordinate transport home.
--- NOTE | 2024-11-01 12:05 | MHC.CM.ED ---
After speakin with Shey PT, Violeta agreeable to patient d/c'ing home with resumption of [facility]. Requesting BLS transport due to stairs. [facility] BLS booked for 1pm. Patient, daughter in law Maday Gibson RN and Danita BARRERA aware.
[2024-11-01 12:58] VITALS: BP 160/73; PULSE 83; RESP 16; TEMP 36.6; O2SAT 95
== END 2024-11-01 12:59 | disposition home or self-care (01) ==
PROVIDERS: Physician Assistant Medical; Registered Nurse Emergency; Emergency Provider Emergency Medicine; PCP Internal Medicine
DX: M25.561 Pain in right knee (principal); M79.604 Pain in right leg; Z03.818 Encounter for observation for suspected exposure to other biological agents ruled out; E11.9 Type 2 diabetes mellitus without complications; I10 Essential (primary) hypertension; Z96.651 Presence of right artificial knee joint; Z95.2 Presence of prosthetic heart valve; Z79.01 Long term (current) use of anticoagulants; Z79.4 Long term (current) use of insulin; Z79.02 Long term (current) use of antithrombotics/antiplatelets; Z79.899 Other long term (current) drug therapy
CPT/HCPCS: 0241U; 36415; 73562; 80053; 82947; 85025; 85610; 93971; 97161; 99284

== ENCOUNTER → 2024-10-31 09:00 | Outpatient (BNV) | payer MEDICARE, SELFPAY | PROVIDERS: PCP Internal Medicine; Visit Provider Radiology Diagnostic Radiology | DX: M25.561 Pain in right knee (principal); M25.461 Effusion, right knee | CPT/HCPCS: 73562; 93971 ==

== ENCOUNTER 2025-01-17 13:32 | Emergency (ER) | payer MEDICARE, SELFPAY ==
--- NOTE | ~2025-01-17 | XR_ITS ---
EXAMINATION: XR CHEST 2 VIEWS HISTORY: dizziness, fall COMPARISON: Comparison is made with the prior examination dated 06/15/2024. FINDINGS: AP and lateral views of the chest are submitted. There are low lung volumes. Pulmonary vascular prominence may be due to AP technique and low lung volumes. An opacity in the left lower lobe may represent pneumonia. The right lung is clear. There is no pleural effusion, pneumothorax, or pulmonary vascular congestion. The heart is enlarged. The patient is status post median sternotomy and valve replacement. The patient is status post reverse left total shoulder arthroplasty. XR/XR chest 2V IMPRESSION: Low lung volumes. Left lower lobe opacity may represent pneumonia. Follow-up is recommended to document resolution. Electronically signed by: Eliot Dowling MD 01/17/2025 03:49 PM EDT
--- NOTE | ~2025-01-17 | CT_ITS ---
CLINICAL HISTORY: abnormal CXR, weakness, r o pna CT CHEST WITHOUT CONTRAST Comparison: CR/SR - XR CHEST 2 VIEWS - 01/17/25 15:47 EDT Findings: Cardiomegaly with no significant pericardial effusion. Dense mitral annulus calcifications. Median sternotomy with an aortic valve prosthesis. Dense calcific plaque in the thoracic aorta. The ascending thoracic aorta measures 4.5 cm. Partial visualization of a heterogeneous left thyroid nodule measuring approximately 2 cm. Multiple nonenlarged mediastinal lymph nodes are nonspecific. Small hiatal hernia. Mosaic attenuation pattern in the bilateral lungs. No consolidation, pleural effusion or pneumothorax. Nonspecific ingested radiodensity in the stomach. Cholelithiasis. 4 cm cyst in the right kidney. Left shoulder reverse total arthroplasty. IMPRESSION: 1. Image degradation secondary to respiratory motion artifact. 2. No segmental or lobar pneumonia. 3. Mosaic attenuation pattern which is nonspecific and can be seen with air trapping, inflammation, infection or fluid overload. 4. 4.5 cm ascending thoracic aortic aneurysm. No acute intramural hematoma. 5. Nonspecific left thyroid nodule can be further characterize with ultrasound on a nonemergent elective basis. 6. Additional findings as above. This document has been electronically signed by: Ameena Glynn DO on 01/17/2025 18:27:51
--- NOTE | ~2025-01-17 | CT_ITS ---
EXAMINATION: CT HEAD WITHOUT CONTRAST CLINICAL INFORMATION: Fall, head strike, anticoagulated. COMPARISON: None available. TECHNIQUE: Contiguous axial imaging was performed from the skull base to vertex without intravenous administration of contrast. This CT examination was performed using dose optimization techniques as appropriate, variously including the following: *Automated exposure control *Adjustment of mA and/or kV according to patient size (this includes techniques or standardized protocols for targeted exams where dose is matched to indication/reason for exam; i.e. extremities or head) *Use of iterative reconstruction technique FINDINGS: There is no evidence of intracranial hemorrhage or extra-axial fluid collection. There is no mass effect, or edema. No CT evidence of acute territorial infarct. Ventricles, sulci, and cisterns are normal in size and configuration for patient age. No hydrocephalus. No midline shift. Negative hyperdense MCA sign. Negative insular ribbon sign. Patchy periventricular and deep white matter hypoattenuation is consistent with mild small vessel ischemic changes. 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 Mild atheromatous calcification of the bilateral carotid siphons and V4 segments vertebral arteries bilaterally. Globes and orbital contents image normally. There are ciliary body calcifications. No extracranial soft tissue abnormalities. The paranasal sinuses, mastoid air cells, and tympanic cavities are normally aerated. No suspicious bony abnormalities. There are no acute fractures evident. CT/CT head/brain wo IV con IMPRESSION: 1. No acute intracranial abnormality. No fracture evident. 2. Chronic changes as detailed. Electronically signed by: Gaston Geller MD 01/17/2025 02:38 PM EDT
--- NOTE | ~2025-01-17 | CT_ITS ---
EXAMINATION: CT CERVICAL SPINE WITHOUT CONTRAST CLINICAL INFORMATION: Fall, Head trauma COMPARISON: None available. TECHNIQUE: Axial imaging was performed from the base of the skull through upper T2 without IV contrast. Coronal and sagittal reformatted images were generated from the original axial data set. ALARA: The examination used one or more of the following radiation dose reduction techniques: Automated exposure control, iterative reconstruction, and/or adjustment of mA and/or KV. DLP: 939 mGY*cm FINDINGS: There is pyrophosphate deposition in the cruciate ligament and ligamentum flavum between C3-4 and C7-T1 and the C2-3, C3-4, and C4-5 discs. Degenerative sclerosis, cystic change, and osteophytes are noted at the anterior C1-C2 articulation. Dense minimally abuts the clivus. C2-C3: There is nonsegmentation of the facets on the right. C3-C4: There is subtle anterolisthesis. There is severe facet osteoarthritis on the left. C4-C5: There is subtle anterolisthesis. There is severe facet osteoarthritis on the left. C5-C6: Unremarkable C6-7: Unremarkable C7-T1: There is subtle anterolisthesis There is mild to moderate osteoarthritis of the facets of other levels. There is no prevertebral edema. No fracture lines are identified. Lung apexes are unremarkable. Bilateral thyroid nodules or cysts are present on the left. CT/CT cervical spine wo IV con IMPRESSION: No acute fracture. Bilateral thyroid nodules or cysts. Follow-up with ultrasound, nonemergent. 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 Electronically signed by: Frank Pichardo MD 01/17/2025 02:44 PM EDT
[2025-01-17 13:51] VITALS: BP 133/60; PULSE 76; RESP 18; TEMP 36.6; O2SAT 97; BMI 32.3
--- NOTE | 2025-01-17 13:55 | ECG_ITS ---
Test Reason : WEAKNESS Blood Pressure : */* mmHG Vent. Rate : 78 BPM Atrial Rate : 78 BPM P-R Int : 264 ms QRS Dur : 166 ms QT Int : 470 ms P-R-T Axes : * 21 97 degrees QTcB Int : 535 ms Sinus rhythm with 1st degree A-V block Left bundle branch block Abnormal ECG When compared with ECG of 18-Oct-2024 15:55, No significant changes seen Referred By: Ginna Martines Electronically Signed By: DANIEL COOK
--- NOTE | 2025-01-17 13:55 | ED_ITS ---
HPI - General Adult General Chief complaint: Weakness Stated complaint: falling, difficulty walking Time Seen by Provider: 01/17/25 14:30 Source: patient and family ([id number]) Mode of arrival: ambulatory Limitations: no limitations History of Present Illness ED Provider: DR. Andrade HPI narrative: 79-year-old female who lives home with her family, patient presented today with her family for evaluation of progressive generalized weakness and multiple falls for the past month. Patient goes to vestibular therapy for balance and dizziness ordered by her PCP, patient otherwise has no chest pain, no headache, no neck pain, no back pain, no abdominal pain, no urinary incontinence, able to move 4 extremities. Related Data Home Medications ?Medication ?Instructions ?Recorded ?Confirmed atorvastatin 40 mg tablet 40 mg PO DAILY@0900 06/12/24 10/31/24 insulin glargine 100 unit/mL (3 30 unit subcut DAILY@0 900 06/12/24 10/31/24 mL) subcutaneous pen (Lantus Solostar U-100 Insulin) metformin 850 mg tablet 850 mg PO DAILY@2100 5 10/31/24 metoprolol tartrate 50 mg tablet 50 mg PO BID 06/12/24 10/31/24 valsartan 160 mg tablet 160 mg PO DAILY@0900 5 10/31/24 warfarin 5 mg tablet 7.5 mg PO TUTH@1800 06/12/24 10/31/24 mirtazapine 15 mg tablet 15 mg PO BEDTIME PRN Sleep 0 07/16/24 10/31/24 pantoprazole 40 mg tablet,delayed 40 mg PO DAILY@0630 07/16/24 10/31/24 release warfarin 5 mg tablet 5 mg PO SUMOWEFRSA 07/16/24 10/31/24 estradiol 0.01% (0.1 mg/gram) 1 appl vaginal MOWEFR 10/31/24 vaginal cream fluticasone propionate 50 1 spray intranasal BID 10/1910/31/24 mcg/actuation nasal spray,suspension furosemide 20 mg tablet 20 mg PO DAILY 10/31/2401/17 Previous Rx's ?Medication ?Instructions ?Recorded amlodipine 5 mg tablet 5 mg PO DAILY #90 tabs 07/19 empagliflozin 10 mg tablet 10 mg PO DAILY #30 tabs enoxaparin 80 mg/0.8 mL 70 mg (0.7 mL) subcut Q12H # 8 mL 10/21/24 subcutaneous syringe hydrocortisone 2.5 % topical cream 1 appl [place] DAILY PRN hemorrhoids 10/21/24 with perineal applicator #30 grams (Procto-Med HC) Allergies Allergy/AdvReac Type Severity Reaction Status Date / Time No Known Allergies Allergy Verified 01/17/25 13:54 Review of Systems 2 Review of Systems: All other systems are reviewed and are negative Constitutional: Reports as per HPI and Reports no additional constitutional complaints Eyes: Reports as per HPI and Reports no additional eye complaints Reports system reviewed and no additional complaints, except as documented Cardiovascular: Reports as per HPI and Reports no additional cardiovascular complaints Respiratory: Reports as per HPI and Reports no additional respiratory complaints Gastrointestinal: Reports as per HPI and Reports no additional gastrointestinal complaints Genitourinary: Reports no additional female genitourinary complaints Musculoskeletal: Reports no additional musculoskeletal complaints Skin/Breast: Reports system reviewed and no additional complaints, except as docu Psychiatric: Reports no additional psychiatric complaints Endocrine: Reports no additional endocrine complaints Hematologic/Lymphatic: Reports no additional hematologic/lymphatic complaints Allergic/Immunologic: Reports no additional allergic/immunologic complaints Reports system reviewed and no additional complaints, except as documented and Reports Abnormal speech present [facility] Past Medical History Medical History Angiectasia AVM (arteriovenous malformation) of colon On warfarin therapy Anemia Breast cancer Diabetes Anticoagulated on Coumadin Hypertension Surgical History Status post ablation of incompetent vein using laser Heart valve replaced Social History Social History Household Members: Children Housing: House Are you a primary child care aide to a significant other at home: No Do you presently have visiting nurse or other home services: No Unable to assess alcohol history related to: Unknown Alcohol intake: never Patient Tobacco Use Status: Never used Tobacco Smoked in Last 30 Days: No Use of substances other than those prescribed or required for medical reasons: No Advance Directives: Yes Advance Directives on File: Yes Advance Directives Date on File: 07/16/24 Do you have a plan to hurt others: No Plan service: No Physical Exam ED Vital Signs: Vital Signs - 24 hr 01/17/25 13:51 01/17/25 15:06 01/17/25 17:11 Temperature 97.8 F 97.9 F 97.8 F Pulse Rate 76 71 66 Respiratory Rate 18 15 14 Blood Pressure 133/60 157/62 H 137/63 Pulse Oximetry 97 95 98 Oxygen Delivery Method Room Air Room Air Room Air 01/17/25 19:08 Temperature 97.6 F Pulse Rate 76 Respiratory Rate 16 Blood Pressure 144/51 H Pulse Oximetry 96 Oxygen Delivery Method Room Air BMI result Body Mass Index 32.3 Vital signs have been reviewed and appear to be correct. Blood pressure elevated. Heart rate normal. Respiratory rate normal. Temperature normal. Oxygen saturation normal. Appearance: Alert. Oriented X3. No acute distress. Head: Normal external exam. Normocephalic. Atraumatic. No [place] signs noted. No raccoon eyes noted Eyes: PERRLA. EOMI. Conjunctiva and sclera normal. Eyelids normal. ENT: TM's Normal. Pharynx normal. Uvula midline. Moist mucous membranes. No trismus noted. No drooling noted. No muffled voice noted. Neck: Normal inspection. Neck supple. FROM. No adenopathy. Thyroid Normal. No meningeal signs. No neck mass noted. CVS: Normal heart rate and rhythm. Heart sound normal. No murmurs noted. Pulses normal throughout. Respiratory: No respiratory distress. Painless inspiration. Breath sounds normal. No wheezes/rales/rhonchi noted. Chest nontender. No accessory muscle usage noted or decreased air movement noted. Abdomen: Soft and nontender. Bowel sounds normal in all 4 quadrants. No distention noted. No organomegaly noted. No visible injury noted. Back: No CVA tenderness. Full range of motion noted. Skin: Skin warm and dry. Normal skin color. Normal skin turgor. No rashes/lesions/lacerations noted. Extremities: No lower extremity edema. Extremities exhibit normal range of motion. Extremities nontender. Neuro: Oriented X 3. Cranial nerve exam: II-XII are grossly intact No motor deficit. No sensory deficit. Reflexes normal. Course Course Course Narrative: Rapid medical examination performed in triage by Ginna Martines PA-C. Patient is a 79 year old assigned female at presenting to the emergency department with multiple falls and feeling weak. Detailed physical exam and review of systems are deferred to the sign builder supervisor. EKG, labs, imaging, and swabs ordered. Patient placed back in the waiting room pending room availability and results. Reevaluation(s) Reevaluation #1: Multiple falls, negative workup including head/C-spine/chest x-ray, still waiting for urine sample for UA. Will start physician observation, will get licensed master social worker consultation for evaluation of multiple fall and possible short- term rehab. Start physician observation. Await for PT/case management/UA. Case signed out to Dr. Samayoa Time: 16:05 Medical Decision Making Medical Decision Making MDM Narrative: I received sign-out from my colleague Dr. Andrade CT scan of the head and cervical spine did not show any acute abnormality, chest x-ray shows possible pneumonia, a CT scan of the chest negative for infiltrates. Patient has no respiratory symptoms Urinalysis is negative for UTI Patient and the son feel comfortable going home. Patient states that even if she can not get up and walk, she does not want to stay for PT and case management, patient lives with her son. Both agreeable to take her home regardless of ability to get up and walk level of weakness. Differential Diagnosis Differential Diagnoses: The differential diagnosis associated with the presentation includes (Intracranial pathology, cervical spine injury, pneumonia, pneumothorax, pleural effusion, UTI, electrolyte derangement, severe anemia, failure to thrive.) Admission/Observation Consideration of admission/observation: Escalation of care including admission/observation considered Lab Data [facility] Lab Attestation statement: I reviewed the patient's lab results. 01/17/25 14:19 01/17/25 14:19 Labs: Lab Results 01/17/25 01/17/25 Range/Units 14:19 18:26 WBC 7.4 (4.8-10.8) X10*3/uL RBC 3.92 L (4.20-5.50) X10*6/uL Hgb 9.4 L (12.0-16.0) g/dl Hct 31.1 L (37.0-47.0) % MCV 79.3 L (80.0-98.0) fL MCH 24.0 L (27.0-33.0) pg MCHC 30.2 L (31.0-35.0) g/dl RDW 14.9 (11.0-16.0) % Plt Count 293 (160-400) X10*3/uL MPV 9.9 (9.4-12.3) fL Immature Gran % (Auto) 0.3 (0.0-0.4) % Neut % (Auto) 67.6 (45-73) % Lymph % (Auto) 21.4 (20-40) % [facility] % (Auto) 9.0 (2-11) % Eos % (Auto) 1.2 (0-4) % Baso % (Auto) 0.5 (0-2) % Lymph # (Auto) 1.6 (1.2-4.9) X10*3/uL [facility] [place] [facility] # (Auto) 0.7 (0.1-1.2) X10*3/uL Eos # (Auto) 0.1 (0.0-0.4) X10*3/uL Baso # (Auto) 0.0 (0.0-0.2) X10*3/uL Abs Immat Gran (auto) 0.02 (0.00-0.03) X10*3/uL Absolute Neuts (auto) 5.0 (2.0-8.3) x10*3/uL Absolute Nucleated RBC 0.000 (0.0-0.012) X10*3/uL Nucleated RBC % (auto) 0.0 (0.0-0.2) /100WBC PT 31.2 H (10.9-12.4) SEC INR 2.7 H (0.9-1.1) Sodium 139 (135-145) mmol/L Potassium 4.2 (3.3-5.1) mmol/L Chloride 103 (96-108) mmol/L Carbon Dioxide 29 (22-29) mmol/L Anion Gap 11 L (12-20) BUN 22 H (9-16) mg/dL Creatinine 1.07 (0.5-1.4) mg/dL Estim Creat Clear Calc 37.0 Estimated GFR 49 Random Glucose 213 H (60-115) mg/dL Calcium 9.1 (8.4-10.2) mg/dL Magnesium 2.3 (1.6-2.6) mg/dL Total Bilirubin 0.2 (0.0-1.0) mg/dL AST 31 (5-31) U/L ALT 28 (0-31) U/L Alkaline Phosphatase 128 H (39-117) U/L Troponin I High Sens 8.7 D (<3.5-17.0) ng/L Total Protein 7.0 (6.5-8.0) g/dL Albumin 4.3 (3.5-5.0) g/dL Urine Color Yellow Urine Appearance Clear Urine pH 6.0 (5.0-9.0) Ur Specific Marquez 1.015 (1.005-1.025) Urine Protein Negative (Neg-Trace) mg/dL Urine Glucose (UA) >=1000 H (Negative) mg/dL Urine Ketones Negative (Negative) mg/dL Urine Blood Negative (Negative) Urine Nitrite Negative (Negative) Ur Leukocyte Esterase Negative (Negative) Urine RBC 0-2 (0-2) /HPF Urine WBC 0-5 (0-5) /HPF Ur Squamous Epith Cells 0-2 (0-2) /HPF Urine Bacteria None Seen (None Seen) Hyaline Casts 0-2 (0-2) /LPF COVID-19 (BYRON) Negative (Negative) COVID-19 Clin Com See Note Influenza Type A (JESÚS) Negative (Negative) Influenza Type B (JESÚS) Negative (Negative) Influenza A & B Note See Note Independent Interpretation I performed an independent interpretation of an: Plain X-Ray (Chest: No acute intrathoracic pathology.) and CT Scan (Head/cervical spine: No acute pathology.) Radiology Impression Discussion of test interpretation with radiology: I have reviewed the radiologist's reading. Discharge Plan Discharge Clinical Impression: Multiple falls Patient Disposition: Home, Self-Care Instructions: Fall Prevention for Older Adults (ED) Additional Instructions: Please follow-up with your primary care physician tomorrow. If you have any worsening or new symptoms, please return to the emergency room or call 911 Prescriptions: No Action atorvastatin 40 mg tablet 40 mg PO DAILY@0900 metformin 850 mg tablet 850 mg PO DAILY@2100 metoprolol tartrate 50 mg tablet 50 mg PO BID valsartan 160 mg tablet 160 mg PO DAILY@0900 insulin glargine [Lantus Solostar U-100 Insulin] 100 unit/mL (3 mL) insulin pen 30 unit subcut DAILY@0900 warfarin 5 mg Tablet 7.5 mg PO TUTH@1800 Rx Instructions: in the evening pantoprazole 40 mg tablet,delayed release (DR/EC) 40 mg PO DAILY@0630 mirtazapine 15 mg tablet 15 mg PO BEDTIME PRN (Reason: Sleep) warfarin 5 mg Tablet 5 mg PO SUMOWEFRSA amlodipine 5 mg Tablet 5 mg PO DAILY Qty: 90 0RF Protocol: Hold for SBP< HOLD for SBP < : 90 estradiol 0.01 % (0.1 mg/gram) cream 1 appl vaginal MOWEFR fluticasone propionate 50 mcg/actuation spray,suspension 1 spray intranasal BID enoxaparin 80 mg/0.8 mL Syringe 70 mg subcut Q12H Qty: 8 0RF Rx Instructions: use while INR is less than 2 hydrocortisone [Procto-Med HC] 2.5 % cream with perineal applicator 1 appl [place] DAILY PRN (Reason: hemorrhoids) Qty: 30 0RF empagliflozin 10 mg tablet 10 mg PO DAILY Qty: 30 0RF furosemide 20 mg tablet 20 mg PO DAILY Print Language: [place] Arabian
[2025-01-17 14:27] LABS: MANUAL DIFF FLAG NO
[2025-01-17 14:30] LABS: Hematocrit 31.1 % (37.0-47.0); Hemoglobin 9.4 g/dl (12.0-16.0); Imm Gran Abs Auto 0.02 X10*3/uL (0.00-0.03); Imm Gran Pct Auto 0.3 % (0.0-0.4); Lymphocytes Absolute Auto 1.6 X10*3/uL (1.2-4.9); Mean Corpuscular HGB Conc 30.2 g/dl (31.0-35.0); Mean Corpuscular Hemoglobin 24.0 pg (27.0-33.0); Mean Corpuscular Volume 79.3 fL (80.0-98.0); NRBC Abs Auto 0.000 X10*3/uL (0.0-0.012); NRBC Pct Auto 0.0 /100WBC (0.0-0.2); Platelet Count 293 X10*3/uL (160-400); Red Blood Count 3.92 X10*6/uL (4.20-5.50); White Blood Count 7.4 X10*3/uL (4.8-10.8)
[2025-01-17 14:43] LABS: COVID-19 Test Negative (Negative); IDNOW Serial# 58CA691E
[2025-01-17 14:44] LABS: IDNOW Serial# 08D9AD1C; Influenza B2 Negative (Negative)
[2025-01-17 14:45] LABS: Alanine Aminotransferase 28 U/L (0-31); Albumin Level 4.3 g/dL (3.5-5.0); Alkaline Phosphatase 128 U/L (39-117); Anion Gap 11 (12-20); Aspartate Amino Transferase 31 U/L (5-31); Blood Urea Nitrogen 22 mg/dL (9-16); Calcium 9.1 mg/dL (8.4-10.2); Carbon Dioxide 29 mmol/L (22-29); Chloride 103 mmol/L (96-108); Creatinine Clr Calc Pharmacy 37.0; Estimated Glomerular Filt Rate 49; Magnesium 2.3 mg/dL (1.6-2.6); Potassium 4.2 mmol/L (3.3-5.1); Sodium 139 mmol/L (135-145); Total Protein 7.0 g/dL (6.5-8.0)
[2025-01-17 14:50] LABS: Troponin-I High Sensitivity 8.7 ng/L (<3.5-17.0)
[2025-01-17 15:06] VITALS: BP 157/62; PULSE 71; RESP 15; TEMP 36.6; O2SAT 95
--- NOTE | 2025-01-17 15:12 | PC.NURSE ---
Patient presents to ED c/o weakness. Patient speaks Azeri but understands some armenian. Daughter in law at bedside reports increased weakness and having multiple falls over the past month. Denies headstrike, LOC, Pain, n/v Patient reports feeling weak and dizzy when attempting to stand up. Scans are negative for acute fractures Plan of care on going
[2025-01-17 15:34] LABS: INTERNATIONAL NORM RATIO 2.7 (0.9-1.1); Prothrombin Time 31.2 SEC (10.9-12.4)
--- OUTSIDE RECORDS SUMMARY | 2025-01-17 16:15 | XMS_ITS | Clinical Summary ---
Author Organization [facility] Address [address] [facility] [place] [address] Phone Care Team Providers Care Prints And Drawings Curator Name Role Phone Paco Schuler MD Primary Care Provider [phone] Allergies Active Allergy Reactions Criticality Noted Date [...] mouth 2 (two) times a day. Active valsartan (DIOVAN) 160 mg tablet Take 1 tablet (160 mg total) by mouth 1 (one) time each day. Active amLODIPine (NORVASC) 5 mg tablet Take by mouth 1 (one) time each day. Active pantoprazole (PROTONIX) 20 mg EC tablet Take 1 tablet (20 mg total) by mouth 1 (one) time each day before breakfast. Do not crush, chew, or split. Active Jardiance 10 mg tablet Take 1 tablet (10 mg total) by mouth 1 (one) time each day in the morning. 11/16/19 Active furosemide (LASIX) 20 mg tablet Take 1 tablet (20 mg total) by mouth 1 (one) time each day. 11/18/19 25 Active pioglitazone (ACTOS) 30 mg tablet Take 1 tablet (30 mg total) by mouth 1 (one) time each day. 025 Discontinued mirtazapine (Remeron) 15 mg tabletIndicati ons:Anxiety Take 1 tablet (15 mg total) by mouth at bedtime. 30 each 07/02/19 25 025 Discontinued Active Problems Problem Noted Date Diagnosed Date [...] this time as she had one in [place]. Assessment & Plan (07/03/2024 6:24 PM EST): Status post bioprosthetic aortic valve with some slight increase in gradient. Understands need to continue with anticoagulation. Continues with warfarin without bleeding Encounters Date Type Department Care Team Description 01/10/2025 Telephone [facility] [address] [facility] [address] [place] [address] Madeleine Bass NP 10/22/2024 Telephone [facility] [address] [place] [phone] Dilip Dykes MD from Last 3 Months Social History Tobacco [...] 08/30/2024 2:00 PM EDT Plan of Treatment Upcoming Encounters Date Type Department Care Team (Late st Contact Info) Description 02/11/2025 9:20 AM EDT Office Visit [facility] [address] [facility] [address] [place] [address] Lindsey Dudley MD [address] [place] [address] Health Maintenance Due Date Last Done Comments Diabetes: Annual Foot Exam 11/14/1955 Diabetes: Annual Retina Eye Exam 11/14/1955 DTaP,Tdap,and Td Vaccines (2 - Td or Tdap) 06/25/2016 06/25/2006 RSV Immunization Adult Patients (1 - 1-dose 75+ series) 2020 Cholesterol Screening (Lipid Panel) 04/28/2022 Falls Risk Assessment 04/28/2022 Hepatitis C Screening 04/28/2022 Medicare Annual Wellness Visit 04/28/2022 Osteoporosis Screening (Bone Density Screening) 04/28/2022 Social Influencers of Health Screening 04/28/2022 Depression Screening 05/26/2024 Diabetes: Annual Urine Albumin-Creatinine Ratio (uACR) 07/02/2024 Diabetes: Blood Sugar Control Test (HGBA1C) 07/02/2024 COVID-19 Vaccine ( season) 2024 04/03/2024, 04/07/2023, 04/04/2022, Additional history exists Influenza Vaccine (#1) 2025 , 03/16/2023, 03/22/2022, Additional history exists Diabetes: Annual GFR (Glomerular Filtration Rate) 01/13/2026 01/13/2025 Hypertension/CHF/CAD Annual BMP Blood Test 01/13/2026 01/13/2025 Zoster Vaccines Completed 04/01/2020, 01/22/2020 Pneumococcal Vaccine: 50+ Years Completed 04/07/2023, 10/10/2017, 04/06/2007 HIB Vaccines Aged Out No longer eligi [...] on patient's age to complete this topic Procedures Procedure Name Priority Date/Time Associated Diagnosis Comments BASIC METABOLIC PANEL Routine 01/13/2025 1:16 PM EDT Nonrheumatic aortic valve stenosis from Last 3 Months Results * (ABNORMAL) Basic metabolic panel (01/13/2025 1:16 PM EDT) Glucose 318(H) 70 - 99 mg/dL [facility] 1 Blood Urea Nitrogen (BUN) 24 8 - 27 mg/dL [facility] 1 Creatinine 1.00 0.57 - 1.00 mg/dL [facility] 1 eGFR 57(L) >59 mL/min/1.7 3 [facility] 1 BUN/Creatinine Ratio 24 12 - 28 [facility] 1 Sodium 138 134 - 144 mmol/L [facility] 1 Potassium 4.6 3.5 - 5.2 mmol/L [facility] 1 Chloride 97 96 - 106 mmol/L [facility] 1 Carbon Dioxide 23 20 - 29 mmol/L [facility] 1 Calcium 9.0 8.7 - 10.3 mg/dL [facility] 1 Blood Venous blood specimen / Unknown 01/13/2025 1:16 PM EDT 01/13/2025 Narrative [facility] 1 - 01/14/2025 7:06 AM EDT Performed at: 01 - [facility] [address] [id number] [employer] Senior [employer]: Siri Hamilton MD, Phone: [phone] us Dilip Dykes MD LAB BLOOD ORDERABLES Final Res ult [facility] 1 from Last 3 Months Insurance [employer] Care Teams Prints And Drawings Curator Relationship Specialty Start Date End Date Paco Schuler MD [address] [place] [phone] PCP - General Internal Medicine 04/28/20
[2025-01-17 17:11] VITALS: BP 137/63; PULSE 66; RESP 14; TEMP 36.6; O2SAT 98
[2025-01-17 18:33] LABS: Appearance Urine Clear; Glucose Urine UA >=1000 mg/dL (Negative); PH 6.0 (5.0-9.0); Specific Gravity - Urine 1.015 (1.005-1.025); UMIC TRIGGER UACC YES
[2025-01-17 19:08] VITALS: BP 144/51; PULSE 76; RESP 16; TEMP 36.4; O2SAT 96
[2025-01-17 20:00] VITALS: BP 144/51; PULSE 76; RESP 16; TEMP 36.4; O2SAT 96
--- NOTE | 2025-01-17 20:25 | MHC.CM.ED ---
Pt and family are refusing PT or STR at this time. Requesting discharge to home. Met with provider. CM did not see patient.
== END 2025-01-17 20:18 | disposition home or self-care (01) ==
PROVIDERS: Physician Assistant Medical; Emergency Provider Emergency Medicine; PCP Internal Medicine
DX: R26.2 Difficulty in walking, not elsewhere classified (principal); R53.1 Weakness; I44.0 Atrioventricular block, first degree; I44.7 Left bundle-branch block, unspecified; R42 Dizziness and giddiness; M54.2 Cervicalgia; R10.2 Pelvic and perineal pain; Z03.818 Encounter for observation for suspected exposure to other biological agents ruled out; Z91.81 History of falling; Z79.899 Other long term (current) drug therapy
CPT/HCPCS: 70450; 71046; 71250; 72125; 80053; 81001; 83735; 84484; 85025; 85610; 87502; 87635; 93005; 99284; 99285

== ENCOUNTER → 2025-01-17 13:55 | Outpatient (BNV) | payer MEDICARE, SELFPAY | PROVIDERS: Emergency Provider Emergency Medicine; PCP Internal Medicine; Visit Provider Radiology Diagnostic Radiology | DX: I71.21 Aneurysm of the ascending aorta, without rupture (principal); E04.1 Nontoxic single thyroid nodule; S09.90XA Unspecified injury of head, initial encounter; M50.33 Other cervical disc degeneration, cervicothoracic region; R42 Dizziness and giddiness; J98.8 Other specified respiratory disorders; R91.8 Other nonspecific abnormal finding of lung field; W19.XXXA Unspecified fall, initial encounter | CPT/HCPCS: 70450; 71046; 71250; 72125 ==

== ENCOUNTER → 2025-01-17 13:55 | Outpatient (BNV) | payer MEDICARE, SELFPAY | PROVIDERS: Emergency Provider Emergency Medicine; PCP Internal Medicine; Visit Provider Internal Medicine | DX: I44.0 Atrioventricular block, first degree (principal); I44.7 Left bundle-branch block, unspecified | CPT/HCPCS: 93010 ==

== ENCOUNTER 2025-01-21 18:59 | Inpatient (IN) | payer MEDICARE, SELFPAY ==
--- NOTE | ~2025-01-21 | CT_ITS ---
CLINICAL HISTORY: question aphasia CT head without contrast Comparison: 01/17/25 Findings: No acute hemorrhage. No extra-axial fluid collection. No hydrocephalus, mass-effect or herniation. San-white differentiation is maintained. There is new hypoattenuation of the left centrum semiovale (series 5, images 31-34). White matter is otherwise within normal limits for the patient's age. No acute orbital pathology. No acute soft tissue abnormality. No fracture. The visualized paranasal sinuses are predominantly clear. The mastoid air cells are clear. Impression: No intracranial hemorrhage or acute transcortical infarction. New decreased attenuation in the left centrum semiovale indicate acute infarction. Evaluate further with brain MR. CTA of the head and neck with 3-D postprocessing Comparison: None available Findings: No significant carotid artery stenosis. Intact vertebral arteries. The vertebral basilar system is patent. The cerebellar and posterior cerebral arteries are intact. The intracranial internal carotid arteries are patent. The middle/anterior cerebral arteries are intact. 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 The A2 segment is partially fed via the anterior communicating artery, a normal variant No abrupt cutoffs or significant stenosis. No mass, midline shift, hydrocephalus, acute hemorrhage or abnormal contrast enhancement. The lung apices are clear. Partially visualized dilation of the ascending aorta, measuring 4.4 cm. Thyroid nodules measure up to 1.3 cm in the left lobe. The soft tissues of the head and neck are otherwise unremarkable. Impression: No abrupt cutoffs or significant stenosis. 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 No other aneurysm. This document has been electronically signed by: Francesca Amezcua MD on 01/21/2025 22:58:35
--- NOTE | ~2025-01-21 | MR_ITS ---
CLINICAL HISTORY: ?CVA vs TIA MR Brain without gadolinium Comparison: None provided Findings: The examination demonstrates evidence of an anterior cerebral artery middle cerebral artery watershed infarct on the left. There is an additional infarct in the medial right frontal region. There are innumerable punctate magnetic susceptibility lesions throughout the brain consistent with multifocal microhemorrhage. No midline shift. No hydrocephalus. Vascular flow voids are intact. The orbits are normal. The sinuses and mastoid air cells are clear. No focal bone lesion. Microvascular changes are also noted. IMPRESSION: 1. The examination demonstrates evidence of an anterior cerebral artery middle cerebral artery watershed infarct on the left. There is an additional infarct in the medial right frontal region. 2. There are innumerable punctate magnetic susceptibility lesions throughout the brain consistent with multifocal microhemorrhage. This document has been electronically signed by: Roque Gregg MD on 01/22/2025 13:12:11
--- NOTE | ~2025-01-21 | XR_ITS ---
EXAMINATION: XR CHEST CLINICAL INFORMATION: leukocytosis COMPARISON: January 17, 2025 TECHNIQUE: Frontal view of the chest was obtained. FINDINGS: Lung volumes are mildly reduced. Heart size is within normal limits. There is vascular crowding. There is persistent opacity in the left lung base Reverse osseous noted in the left shoulder. Linear calcification lateral to the right greater tuberosity humerus could represent calcific tendinitis. Mitral valve prosthesis is noted again. XR/XR chest 1V IMPRESSION: Stable patchy opacity in the left lung base likely represents atelectasis but pneumonia is not ruled out. Electronically signed by: Frank Pichardo MD 01/26/2025 02:53 PM EDT
--- NOTE | ~2025-01-21 | CT_ITS ---
EXAMINATION: CT HEAD WITHOUT CONTRAST CLINICAL INFORMATION: ams COMPARISON: January 21, 2025. Correlated to MRI brain dated January 22, 2025 reported acute to subacute infarcts. TECHNIQUE: Contiguous axial imaging was performed from the skull base to vertex without intravenous administration of contrast. This CT examination was performed using dose optimization techniques as appropriate, variously including the following: *Automated exposure control *Adjustment of mA and/or kV according to patient size (this includes techniques or standardized protocols for targeted exams where dose is matched to indication/reason for exam; i.e. extremities or head) *Use of iterative reconstruction technique DLP: 531 mGy-cm FINDINGS: No acute intracranial hemorrhage, mass effect, midline shift, hydrocephalus or herniation. Multifocal patchy hypodensities left cingulate gyrus and likely right midline corpus callosum genu. Focal encephalomalacia in the posterior superior right midline cerebellum. Calcified plaques in the cavernous supracavernous segments both ICAs. No air-fluid levels in the paranasal sinuses. For pneumatization right mastoid air cells. Tympanic cavities are aerated. CT/CT head/brain wo IV con IMPRESSION: No acute intracranial hemorrhage. Evolving acute to subacute nonhemorrhagic strokes in the SHILPI territories. Prior vascular insult, right superior cerebellar artery territory. Electronically signed by: gM Morgan MD 01/26/2025 01:36 PM EDT
--- NOTE | ~2025-01-21 | CT_ITS ---
CLINICAL HISTORY: hematuria right back pain CT abdomen and pelvis without contrast Comparison: 10/18/24 Findings: No nephrolithiasis or hydronephrosis. Calcifications in the renal pelvises are vascular No bladder stone. No consolidation at the lung bases. Prominent sized heart. Status post aortic valve replacement. Calcification of the mitral annulus. Cholelithiasis. No gallbladder wall thickening or pericholecystic fluid. Right renal cyst. Status post hysterectomy. The other solid organs are normal. No bowel wall thickening or dilation. A normal appendix is identified. No aneurysm. Severe calcified atherosclerotic disease. No lymphadenopathy. No ascites. No acute fracture. Impression: No urinary tract stone, obstruction or other acute findings. Cholelithiasis without CT evidence of acute cholecystitis. This document has been electronically signed by: Francesca Amezcua MD on 01/21/2025 21:40:34
[2025-01-21 19:06] VITALS: BP 162/79; PULSE 73; O2SAT 98
[2025-01-21 19:10] VITALS: BP 174/57; PULSE 73; RESP 16; TEMP 36.8; O2SAT 96; BMI 29.4
--- NOTE | 2025-01-21 19:22 | ED.GENADULT ---
HPI - General Adult General Chief complaint: Weakness Stated complaint: weakness Time Seen by Provider: 01/21/25 19:12 Source: patient and family Limitations: language barrier History of Present Illness ED Provider: Martha Soliman PA-C HPI narrative: 79-year-old female with a history of hypertension, diabetes, hyperlipidemia, heart failure with preserved ejection fraction, status post mechanical aortic valve replacement on warfarin who presents with weakness for weeks. Patient states she has been having ongoing dizziness with generalized weakness and focal weakness of right lower extremity. Associated gait instability. Patient was seen in the emergency department on January 17 for similar presentation, then in turn followed up with her primary care provider. Patient returns with refractory symptoms. Denies nausea vomiting diarrhea, dysuria, fever. Denies cough or cold symptoms. Related Data Home Medications ?Medication ?Instructions ?Recorded ?Confirmed atorvastatin 40 mg tablet 40 mg PO DAILY@0900 06/12/24 10/31/24 insulin glargine 100 unit/mL (3 30 unit subcut DAILY@0906/12/24 10/31/24 mL) subcutaneous pen (Lantus Solostar U-100 Insulin) metformin 850 mg tablet 850 mg PO DAILY@2100 06/12/24 10/31/24 metoprolol tartrate 50 mg tablet 50 mg PO BID 06/12/24 10/31/24 valsartan 160 mg tablet 160 mg PO DAILY@0900 06/12/24 10/31/24 warfarin 5 mg tablet 7.5 mg PO TUTH@1800 06/12/24 10/31/24 mirtazapine 15 mg tablet 15 mg PO BEDTIME PRN Sleep 07/16/24 10/31/24 pantoprazole 40 mg tablet,delayed 40 mg PO DAILY@0630 07/16/24 10/31/24 release warfarin 5 mg tablet 5 mg PO SUMOWEFRSA 07/16/24 10/31/24 estradiol 0.01% (0.1 mg/gram) 1 appl vaginal MOWEFR 10/19/24 10/31/24 vaginal cream fluticasone propionate 50 1 spray intranasal BID 10/19/24 10/31/24 mcg/actuation nasal spray,suspension furosemide 20 mg tablet 20 mg PO DAILY 10/31/24 10/31/24 Previous Rx's ?Medication ?Instructions ?Recorded amlodipine 5 mg tablet 5 mg PO DAILY #90 tabs 07/19/24 empagliflozin 10 mg tablet 10 mg PO DAILY #30 tabs 10/21/24 enoxaparin 80 mg/0.8 mL 70 mg (0.7 mL) subcut Q12H #8 mL 10/21/24 subcutaneous syringe hydrocortisone 2.5 % topical cream 1 appl MO DAILY PRN hemorrhoids 10/21/24 with perineal applicator #30 grams (Procto-Med HC) Allergies Allergy/AdvReac Type Severity Reaction Status Date / Time No Known Allergies Allergy Verified 01/21/25 19:11 Review of Systems Review of Systems: Yes all other systems are reviewed and are negative Constitutional: Constitutional: Denies fatigue, Denies fever(s), Denies headache(s), Denies malaise and Reports weakness ENT: Reports dizziness and Denies headache(s) Cardiovascular: Cardiovascular: Denies chest pain and Denies dyspnea Respiratory: Respiratory: Denies cough and Denies dyspnea Gastrointestinal: Gastrointestinal: Denies abdominal pain, Denies diarrhea, Denies nausea and Denies vomiting Genitourinary: Genitourinary: Denies dysuria Neurologic: Reports dizziness, Denies headache(s) and Reports weakness Endocrine: Endocrine: Denies fatigue PMF Past Medical History Attestation statement: The following information was validated with the patient. Medical History Angiectasia AVM (arteriovenous malformation) of colon On warfarin therapy Anemia Breast cancer Diabetes Anticoagulated on Coumadin Hypertension Surgical History Status post ablation of incompetent vein using laser Heart valve replaced Social History Social History Household Members: Children Housing: House Are you a primary child care counselor to a significant other at home: No Do you presently have visiting nurse or other home services: No Unable to assess alcohol history related to: Unknown Alcohol intake: never Patient Tobacco Use Status: Never used Tobacco Smoked in Last 30 Days: No Use of substances other than those prescribed or required for medical reasons: No Advance Directives: Yes Advance Directives on File: Yes Advance Directives Date on File: 07/16/24 service: No Physical Exam ED Vital Signs: Vital Signs - 24 hr 01/21/25 19:10 01/21/25 20:23 01/21/25 22:17 Temperature 98.3 F 97.3 F 97.8 F Pulse Rate 73 67 74 Respiratory Rate 16 16 16 Blood Pressure 174/57 H 126/50 L 137/51 L Pulse Oximetry 96 96 98 Oxygen Delivery Method Room Air Room Air Room Air BMI result Body Mass Index 29.4 Const Other: Alert well-appearing Orientation/consciousness: patient oriented x3 Resp Effort & Inspection: normal respiratory effort Cardio Other: Normal peripheral perfusion Skin Other: Warm dry no rash Neuro Other: Antalgic gait, ambulates slowly but steady General: patient oriented x3, no focal motor deficits and CN's II-XI intact bilaterally Extrem Other: Strength 5/5 bilateral lower extremities Psych Other: Cooperative NIH Stroke Scale Level of Consciousness: Alert Level of Consciousness Questions: Answers both questions correctly Level of Consciousness Commands: Performs both tasks correctly Best Gaze: Normal Visual: No visual loss Facial Palsy: Normal Motor Arm (Right): No drift Motor Arm (Left): No drift Motor Leg (Right): No drift Motor Leg (Left): No drift Limb Ataxia: Absent Sensory: Normal Best Language: No aphasia Dysarthia: Normal Extinction and Inattention: No abnormality Score: 0 Course Reevaluation(s) Reevaluation #1: Patient's urine appears infected, she is passing hematuria, given right-sided symptoms including back pain, we will obtain a dry scan to rule out renal colic. Her sons are at bedside, they feel today she is more confused from her baseline, they describe potential receptive aphasia, her symptoms have resolved as I am not appreciating this on my exam when I spoke with her with the tin flipper. Also, the patient ambulated with a minimal assistance to the bathroom, with a steady gait, she did not use a walker, 1 of the technicians allowed her to hold her arm. ordering angiograms of head and neck. Reevaluation #2: Evidence of infarct that is new when compared to study from January 17, she will be admitted for an MRI. CT abdomen and pelvis negative for acute process, she does have a urinary tract infection, ordering blood cultures, lactic starting ceftriaxone. Perform swallow eval, she was able to swallow without issue. Holding aspirin as she is on warfarin Medications Administered Discontinued Medications Generic Name Dose Route Start Last Admin Trade Name Freq PRN Reason Stop Dose Admin Sodium Chloride 500 mls @ 500 mls/hr 01/21/25 20:13 01/21/25 21:22 Ns IV 01/21/25 21:12 Infused .Q1H ONE Infusion Iohexol 75 ml 01/21/25 21:56 01/21/25 22:03 Iohexol 350 Mg/Ml 100 Ml Infus..Btl IV 01/21/25 21:57 75 ml ONCE ONE Administration Medical Decision Making Medical Decision Making MDM Narrative: 79-year-old female with a history of hypertension, diabetes, hyperlipidemia, heart failure with preserved ejection fraction, status post mechanical aortic valve replacement on warfarin who presents with weakness for weeks. Patient states she has been having ongoing dizziness with generalized weakness and focal weakness of right lower extremity. Associated gait instability. Patient was seen in the emergency department on January 17 for similar presentation, then in turn followed up with her primary care provider. Patient returns with refractory symptoms. Denies nausea vomiting diarrhea, dysuria, fever. Denies cough or cold symptoms. Problem: Age, diabetes, chronic dizziness, chronic gait instability, hypertension History: Per patient and her sons I have considered the following differential diagnoses: Vertigo, labyrinthitis, posterior circulation CVA, anemia, electrolyte abnormality, dehydration Plan: This is the patient's 3rd presentation for similar symptoms. After my initial interview, the sons arrived at bedside. They feel she was newly confused earlier today, from what they describe, she may have been having symptoms of receptive aphasia. Right now her NIH scale is 0. We will order angiograms. Her screening labs have been completed at this point, she does have an BELEN, giving 500 mL of IV fluid. I have independently reviewed the following tests: Labs: No leukocytosis, stable anemia, no electrolyte abnormality, creatinine subtly bumped at 1.42, urine does appear infected passing hematuria, COVID negative CT abdomen and pelvis: Findings: No nephrolithiasis or hydronephrosis. Calcifications in the renal pelvises are vascular No bladder stone. No consolidation at the lung bases. Prominent sized heart. Status post aortic valve replacement. Calcification of the mitral annulus. Cholelithiasis. No gallbladder wall thickening or pericholecystic fluid. Right renal cyst. Status post hysterectomy. The other solid organs are normal. No bowel wall thickening or dilation. A normal appendix is identified. No aneurysm. Severe calcified atherosclerotic disease. No lymphadenopathy. No ascites. No acute fracture. Impression: No urinary tract stone, obstruction or other acute findings. Cholelithiasis without CT evidence of acute cholecystitis. CT head: Findings: No acute hemorrhage. No extra-axial fluid collection. No hydrocephalus, mass-effect or herniation. San-white differentiation is maintained. There is new hypoattenuation of the left centrum semiovale (series 5, images 31-34). White matter is otherwise within normal limits for the patient's age. No acute orbital pathology. No acute soft tissue abnormality. No fracture. The visualized paranasal sinuses are predominantly clear. The mastoid air cells are clear. Impression: No intracranial hemorrhage or acute transcortical infarction. New decreased attenuation in the left centrum semiovale indicate acute infarction. Evaluate further with brain MR. CTA head neck: Comparison: None available Findings: No significant carotid artery stenosis. Intact vertebral arteries. The vertebral basilar system is patent. The cerebellar and posterior cerebral arteries are intact. The intracranial internal carotid arteries are patent. The middle/anterior cerebral arteries are intact. 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 The A2 segment is partially fed via the anterior communicating artery, a normal variant No abrupt cutoffs or significant stenosis. No mass, midline shift, hydrocephalus, acute hemorrhage or abnormal contrast enhancement. The lung apices are clear. Partially visualized dilation of the ascending aorta, measuring 4.4 cm. Thyroid nodules measure up to 1.3 cm in the left lobe. The soft tissues of the head and neck are otherwise unremarkable. Impression: No abrupt cutoffs or significant stenosis. 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 No other aneurysm. Differential Diagnosis Differential Diagnoses: The differential diagnosis associated with the presentation includes See [facility] Admission/Observation Consideration of admission/observation: Escalation of care including admission/observation considered She will be admitted she will eventually seen Neurology Consult Healthcare Provider Management of the patient was discussed with: Hospitalist and Insurance Billing Clerk Lab Data [facility] Lab Attestation statement: I reviewed the patient's lab results. 01/21/25 19:50 01/21/25 19:50 Labs: Lab Results 01/21/25 01/21/25 Range/Units 19:32 19:50 WBC 7.7 (4.8-10.8) X10*3/uL RBC 3.91 L (4.20-5.50) X10*6/uL Hgb 9.2 L (12.0-16.0) g/dl Hct 29.7 L (37.0-47.0) % MCV 76.0 L (80.0-98.0) fL MCH 23.5 L (27.0-33.0) pg MCHC 31.0 (31.0-35.0) g/dl RDW 15.4 (11.0-16.0) % Plt Count 285 (160-400) X10*3/uL MPV 10.0 (9.4-12.3) fL Immature Gran % (Auto) 0.3 (0.0-0.4) % Neut % (Auto) 70.1 (45-73) % Lymph % (Auto) 17.9 L (20-40) % Sawyer % (Auto) 10.2 (2-11) % Eos % (Auto) 1.0 (0-4) % Baso % (Auto) 0.5 (0-2) % Lymph # (Auto) 1.4 (1.2-4.9) X10*3/uL Sawyer # (Auto) 0.8 (0.1-1.2) X10*3/uL Eos # (Auto) 0.1 (0.0-0.4) X10*3/uL Baso # (Auto) 0.0 (0.0-0.2) X10*3/uL Abs Immat Gran (auto) 0.02 (0.00-0.03) X10*3/uL Absolute Neuts (auto) 5.4 (2.0-8.3) x10*3/uL Absolute Nucleated RBC 0.000 (0.0-0.012) X10*3/uL Nucleated RBC % (auto) 0.0 (0.0-0.2) /100WBC Sodium 140 (135-145) mmol/L Potassium 4.7 (3.3-5.1) mmol/L Chloride 103 (96-108) mmol/L Carbon Dioxide 26 (22-29) mmol/L Anion Gap 16 (12-20) BUN 37 H (9-16) mg/dL Creatinine 1.42 H (0.5-1.4) mg/dL Estim Creat Clear Calc 28.8 Estimated GFR 36 Random Glucose 222 H (60-115) mg/dL Calcium 9.2 (8.4-10.2) mg/dL Magnesium 2.3 (1.6-2.6) mg/dL Total Bilirubin 0.3 (0.0-1.0) mg/dL AST 25 (5-31) U/L ALT 24 (0-31) U/L Alkaline Phosphatase 113 (39-117) U/L Total Protein 6.9 (6.5-8.0) g/dL Albumin 4.3 (3.5-5.0) g/dL Urine Color Yellow Urine Appearance Clear Urine pH 6.0 (5.0-9.0) Ur Specific [place] 1.015 (1.005-1.025) Urine Protein Negative (Neg-Trace) mg/dL Urine Glucose (UA) >=1000 H (Negative) mg/dL Urine Ketones Negative (Negative) mg/dL Urine Blood Trace (Negative) Urine Nitrite Negative (Negative) Ur Leukocyte Esterase Negative (Negative) Urine RBC 3-5 H (0-2) /HPF Urine WBC 21-50 H (0-5) /HPF Ur Squamous Epith Cells 3-5 (0-2) /HPF Urine Bacteria None Seen (None Seen) Hyaline Casts 0-2 (0-2) /LPF COVID-19 ([facility]) Negative (Negative) COVID-19 Clin Com See Note Radiology Impression Discussion of test interpretation with radiology: I have reviewed the radiologist's reading. Chronic Conditions Patient?s care impacted by: Diabetes and Hypertension Critical Care Time Critical Care Time Critical Care Time: Yes Total Critical Care Time: 40 Attestation: I Martha Soliman PA-C have personally performed 40 minutes of critical care time not including lines and procedures; altered mental status, CVA, urinary tract infection requiring IV antibiotics Discharge Plan Discharge Clinical Impression: Cerebral infarct, Urinary tract infection, Acute kidney injury Patient Disposition: Admitted As Inpatient Print Language: Kazakh
[2025-01-21 19:38] LABS: Appearance Urine Clear; Glucose Urine UA >=1000 mg/dL (Negative); PH 6.0 (5.0-9.0); Specific Gravity - Urine 1.015 (1.005-1.025); UMIC TRIGGER UACC YES
--- OUTSIDE RECORDS SUMMARY | 2025-01-21 19:41 | XMS_ITS | Clinical Summary ---
Author Organization [facility] Address [address] [facility] [address] [place], [place] [address] Phone Care Team Providers Care Executive Vice President Business Development Name Role Phone Paco Schuler MD Primary Care Provider [phone] Allergies Active Allergy Reactions Criticality Noted Date [...] this time as she had one in [place]. Assessment & Plan (07/03/2024 6:24 PM EST): Status post bioprosthetic aortic valve with some slight increase in gradient. Understands need to continue with anticoagulation. Continues with warfarin without bleeding Encounters Date Type Department Care Team Description 01/10/2025 Telephone [facility] Cardiology [facility] [address] [facility] [address] [place] [address] Madeleine Bass NP 10/22/2024 Telephone [facility] [address] [place] [id number] Dilip Dykes MD from Last 3 Months [...] Description 02/11/2025 9:20 AM EDT Office Visit [facility] [address] [place] [id number] Lindsey Dudley MD [address] [place] [address] [address] [place] [address] Health Maintenance Due Date Last Done Comments [...] AM EDT Performed at: 01 - [facility] [address] [id number] Crawler Dragline Operator: Siri [place] MD, Phone: [phone] us Dilip Dykes MD LAB BLOOD ORDERABLES Final Res ult [facility] 1 from Last 3 Months Insurance [employer] Care Teams Executive Vice President Business Development Relationship Specialty Start Date End Date Paco Schuler MD [address] [place] [id number] PCP - General Internal Medicine 04/28/20
[2025-01-21 19:46] LABS: UACC Culture Trigger YES
[2025-01-21 19:54] LABS: MANUAL DIFF FLAG NO
[2025-01-21 20:06] LABS: Hematocrit 29.7 % (37.0-47.0); Hemoglobin 9.2 g/dl (12.0-16.0); Imm Gran Abs Auto 0.02 X10*3/uL (0.00-0.03); Imm Gran Pct Auto 0.3 % (0.0-0.4); Lymphocytes Absolute Auto 1.4 X10*3/uL (1.2-4.9); Mean Corpuscular HGB Conc 31.0 g/dl (31.0-35.0); Mean Corpuscular Hemoglobin 23.5 pg (27.0-33.0); Mean Corpuscular Volume 76.0 fL (80.0-98.0); NRBC Abs Auto 0.000 X10*3/uL (0.0-0.012); NRBC Pct Auto 0.0 /100WBC (0.0-0.2); Platelet Count 285 X10*3/uL (160-400); Red Blood Count 3.91 X10*6/uL (4.20-5.50); White Blood Count 7.7 X10*3/uL (4.8-10.8)
[2025-01-21 20:10] LABS: COVID-19 Test Negative (Negative); IDNOW Serial# 55D5AD1C
[2025-01-21 20:11] LABS: Alanine Aminotransferase 24 U/L (0-31); Albumin Level 4.3 g/dL (3.5-5.0); Alkaline Phosphatase 113 U/L (39-117); Anion Gap 16 (12-20); Aspartate Amino Transferase 25 U/L (5-31); Blood Urea Nitrogen 37 mg/dL (9-16); Calcium 9.2 mg/dL (8.4-10.2); Carbon Dioxide 26 mmol/L (22-29); Chloride 103 mmol/L (96-108); Creatinine Clr Calc Pharmacy 28.8; Estimated Glomerular Filt Rate 36; Magnesium 2.3 mg/dL (1.6-2.6); Potassium 4.7 mmol/L (3.3-5.1); Sodium 140 mmol/L (135-145); Total Protein 6.9 g/dL (6.5-8.0)
[2025-01-21 20:23] VITALS: BP 126/50; PULSE 67; RESP 16; TEMP 36.3; O2SAT 96
[2025-01-21] MEDS: iohexoL 350 MG/ML 100 ML INFUS..BTL 75 ML IV (22:03)
[2025-01-21 22:17] VITALS: BP 137/51; PULSE 74; RESP 16; TEMP 36.6; O2SAT 98
--- NOTE | 2025-01-21 23:09 | PC.NURSE ---
pt ambulated to the bathroom with 1 assist d/t dizziness. tolerated well
[2025-01-21 23:47] VITALS: BP 146/46; PULSE 71; RESP 12; TEMP 36.7; O2SAT 95
--- NOTE | 2025-01-21 23:53 | PM.IMHP ---
History of Present Illness Date of Service: 01/21/25 Attending physician on admission: Mayur Garcia Chief Complaint: weakness Patient is a 79-year-old female with a past medical history significant for hypertension, diabetes, hyperlipidemia, HFpEF and mechanical aortic valve replacement on warfarin, who presented to the ED again due to weakness for the past few weeks with associated right lower extremity weakness, dizziness and gait instability. The pt has a difficult time giving a history even with the interperter, therefore, a majority of the history is from the ED provider. The patient's son's reported that she seemed confused with some possible aphasia. She was seen in the emergency department on 01/17/2025 with a negative workup with similar symptoms in the patient followed up with the primary care physician afterwards without any additional findings. The patient states that her right foot is now weak and not moving as much due to weakness and pain. She has confusion with her words but is oriented. Her blood sugars have also been more elevated recently per her family. Review of Systems Constitutional: Constitutional: Denies chills, Denies fatigue, Denies fever(s) and Denies headache(s) Eyes: Eyes: Denies change in vision ENT: Reports dizziness, Denies headache(s), Denies nasal congestion and Denies sore throat Cardiovascular: Cardiovascular: Denies chest pain, Denies rapid heart rate, Denies leg edema, Denies lightheadedness and Denies dyspnea Respiratory: Respiratory: Denies chest congestion, Denies cough, Denies dyspnea and Denies wheezing Gastrointestinal: Gastrointestinal: Denies abdominal pain, Denies nausea and Denies vomiting Genitourinary: Genitourinary: Denies difficulty voiding, Denies dysuria and Denies urinary urgency Musculoskeletal: Musculoskeletal: Reports abnormal gait, Denies back pain and Denies myalgias Integumentary/Breasts: Skin/Breast: Denies rash Neurologic: Reports abnormal gait, Reports confusion, Reports dizziness and Denies headache(s) Psychiatric: Psychiatric: Reports confusion Endocrine: Endocrine: Denies fatigue Hematologic/Lymphatic: Hematologic/Lymphatic: Denies easy bleeding and Denies easy bruising Allergic/Immunologic: Allergic/Immunologic: Denies wheezing [facility] Medical History Angiectasia AVM (arteriovenous malformation) of colon On warfarin therapy Anemia Breast cancer Diabetes Anticoagulated on Coumadin Hypertension Functional capacity: independent ambulation Surgical History Status post ablation of incompetent vein using laser Heart valve replaced Social History Household Members: Children Housing: House Are you a primary career development coordinator/teacher to a significant other at home: No Do you presently have visiting nurse or other home services: No Unable to assess alcohol history related to: Unknown Alcohol intake: never Patient Tobacco Use Status: Never used Tobacco Smoked in Last 30 Days: No Use of substances other than those prescribed or required for medical reasons: No Advance Directives: Yes Advance Directives on File: Yes Advance Directives Date on File: 07/16/24 Nutrition Risks: No Nutritional Risk service: No Meds Allergies Allergy/AdvReac Type Severity Reaction Status Date / Time No Known Allergies Allergy Verified 01/21/25 19:11 Active Medications: Current Medications Acetaminophen (Acetaminophen 325 Mg Tablet) 975 mg PO Q6H PRN PRN Reason: Pain, Mild 1-3,fever,headache Atorvastatin Calcium (Atorvastatin Calcium 80 Mg Tablet) 80 mg PO DAILY [facility] Calcium Carbonate (Calcium Carbonate 750 Mg Tab.Chew) 750 mg PO Q4H PRN PRN Reason: Heartburn Dextrose (Dextrose 50 % 25 Gm/50 Ml Syringe) 25 gm IVPUSH Q15M PRN; Protocol PRN Reason: per Hypoglycemia Standing Ord. Glucose (Glucose Gel 15 Gm Gel..Gram.) 15 gm PO Q15M PRN; Protocol PRN Reason: per Hypoglycemia Standing Ord. Insulin Human Lispro (Insulin Lispro 100 Unit/Ml 3 Ml Vial) 0 unit SUBCUT QIDACHS [facility]; Protocol Magnesium Hydroxide (Milk Of Magnesia 30 Ml Oral.Susp) 30 ml PO DAILY PRN PRN Reason: Constipation Melatonin (Melatonin 3 Mg Tablet) 6 mg PO BEDTIME PRN PRN Reason: Insomnia Ondansetron HCl (Ondansetron Hcl 4 Mg/2 Ml Vial) 4 mg IVPUSH Q8H PRN PRN Reason: Nausea and Vomiting Oxycodone HCl (Oxycodone Hcl Immed Release 5 Mg Tablet) 5 mg PO Q6H PRN PRN Reason: Pain, Severe (Pain Scale 7-10) Pharmacy Consult (Consult Rx Anticoag Dosing) 1 each MISCELLANE DAILY PRN; Protocol PRN Reason: Consult order Sodium Chloride (0.9 % Sodium Chloride Flush 3 Ml Syringe) 3 ml IVFLUSH QSHIFT [facility] Tramadol HCl (Tramadol Hcl 50 Mg Tablet) 50 mg PO Q6H PRN PRN Reason: Pain, Moderate(Pain Scale 4-6) Home Medications ?Medication ?Instructions ?Recorded ?Confirmed ?Last Taken ?Type atorvastatin 40 mg tablet 40 mg PO DAILY@0906/12/24 10/31/24 10/16/24 History insulin glargine 100 unit/mL (3 30 unit subcut DAILY@0906/12/24 10/31/24 10/16/24 History mL) subcutaneous pen (Lantus Solostar U-100 Insulin) metformin 850 mg tablet 850 mg PO DAILY@2100 06/12/24 10/31/24 10/16/24 History metoprolol tartrate 50 mg tablet 50 mg PO BID 06/12/24 10/31/24 10/16/24 History valsartan 160 mg tablet 160 mg PO DAILY@0900 06/12/24 10/31/24 10/16/24 History warfarin 5 mg tablet 7.5 mg PO TUTH@1800 06/12/24 10/31/24 10/14/24 History mirtazapine 15 mg tablet 15 mg PO BEDTIME PRN Sleep 07/16/24 10/31/24 07/14/24 History pantoprazole 40 mg tablet,delayed 40 mg PO DAILY@0630 07/16/24 10/31/24 10/16/24 History release warfarin 5 mg tablet 5 mg PO SUMOWEFRSA 07/16/24 10/31/24 10/16/24 History estradiol 0.01% (0.1 mg/gram) 1 appl vaginal MOWEFR 10/19/24 10/31/24 Unknown History vaginal cream fluticasone propionate 50 1 spray intranasal BID 10/19/24 10/31/24 10/16/24 History mcg/actuation nasal spray,suspension furosemide 20 mg tablet 20 mg PO DAILY 10/31/24 10/31/24 Unknown History Physical Exam Vital Signs and Narrative: Vital Signs: Last Vital Signs Temp 98.1 F 01/21/25 23:47 Pulse 71 01/21/25 23:47 Resp 12 01/21/25 23:47 BP 146/46 H 01/21/25 23:47 Pulse Ox 95 01/21/25 23:47 O2 Del Method Room Air 01/21/25 23:47 BMI result Body Mass Index 29.4 General: AOx3, no acute distress Resp: CTA bilaterally CVS: S1, S2, RRR GI: +BS, NT, no distention Skin: Warm, dry Neuro: Cranial nerves II-XII grossly intact bilaterally. Motor grossly intact bilaterally. 4/5 bilateral upper and lower extremity strength. Extremities: No pitting edema Psych: Appropriate affect Const: General: confusion Orientation/consciousness: confusion Neuro: General: confusion Results Labs 01/21/25 19:50 01/21/25 19:50 Labs: Laboratory Results - last 24 hr 01/21/25 01/21/25 19:32 19:50 MCV 76.0 L MCH 23.5 L MCHC 31.0 RDW 15.4 Plt Count 285 MPV 10.0 Immature Gran % (Auto) 0.3 Neut % (Auto) 70.1 Lymph % (Auto) 17.9 L [place] % (Auto) 10.2 Eos % (Auto) 1.0 Baso % (Auto) 0.5 Lymph # (Auto) 1.4 [place] # (Auto) 0.8 Eos # (Auto) 0.1 Baso # (Auto) 0.0 Abs Immat Gran (auto) 0.02 Absolute Neuts (auto) 5.4 Absolute Nucleated RBC 0.000 Nucleated RBC % (auto) 0.0 Anion Gap 16 Estim Creat Clear Calc 28.8 Estimated GFR 36 Random Glucose 222 H Calcium 9.2 Magnesium 2.3 Total Bilirubin 0.3 AST 25 ALT 24 Alkaline Phosphatase 113 Total Protein 6.9 Albumin 4.3 Urine Color Yellow Urine Appearance Clear Urine pH 6.0 Ur Specific [place] 1.015 Urine Protein Negative Urine Glucose (UA) >=1000 H Urine Ketones Negative Urine Blood Trace Urine Nitrite Negative Ur Leukocyte Esterase Negative Urine RBC 3-5 H Urine WBC 21-50 H Ur Squamous Epith Cells 3-5 Urine Bacteria None Seen Hyaline Casts 0-2 COVID-19 ([facility]) Negative COVID-19 Clin Com See Note Assessment and Plan (1) Right leg weakness: Status: Acute (2) Cerebral infarct: Status: Acute (3) Acute kidney injury: Status: Acute (4) Urinary tract infection: Status: Acute Plan Patient is a 79-year-old female with a past medical history significant for hypertension, diabetes, hyperlipidemia, HFpEF and mechanical aortic valve replacement on warfarin, who presented to the ED again due to weakness for the past few weeks with associated right lower extremity weakness, dizziness and gait instability. CVA vs TIA - Right lower extremity weakness (resolved), aphasia with possible cerebral infarct on CT - sx have improved since arriving to ED - EKG ordered - no leukocytosis, vitals stable, no sepsis - UA +, culture pending - head CT with acute infarction left centrum semiovale, recommend MRI - CTA head/neck with dilated ascending aorta measuring 4.4 cm - aspiration precautions - stroke education - MRI head - neurology consult - echo with bubble study - passed bedside swallow - high-intensity statin - check lipid panel - neuro checks every 4 hours - monitor on telemetry - PT/OT/speech BELEN - cr 1.42 - avoid nephrotoxins when possible - given IV fluids in ED - monitor BMP UTI - UA positive - no leukocytosis, vitals stable, no sepsis - urine culture pending - started on ceftriaxone pending culture - follow CBC Anemia, microcytic - hgb 9.2, hct 29.7, stable - no need for blood transfusion at this time - monitor CBC HTN - continue home meds after 24 hours DM - sliding scale insulin - baseline lantus unknown pt unable to express, will need to be confirmed in AM - diabetic diet HLD - increased statin chronic HFpEF - no acute exacerbation mechanical valve - warfarin consult in - INR supratherapeutic - check PT/INR med rec pending full code VTE prophy: warfarin Pt with weakness possible CVA vs TIA requiring admission for at least 2 midnights stay for further evaluation and monitoring. Quality Stroke Does the patient have a stroke diagnosis?: No VTE Prior VTE?: No VTE Risk Level:: Medical - moderate - high VTE Device Contraindication: Treatment Not Indicated VTE Drug Contraindication: N/A - Med Ordered
[2025-01-22] VITALS (7 sets, daily range): BP systolic 138–157; BP diastolic 51–70; PULSE 79–95; RESP 13–20; TEMP 36.4–36.6; O2SAT 93–97; BMI 31.9
--- NOTE | 2025-01-22 | ECG_ITS ---
Test Reason : CVA w/u Blood Pressure : */* mmHG Vent. Rate : 96 BPM Atrial Rate : 96 BPM P-R Int : 224 ms QRS Dur : 160 ms QT Int : 424 ms P-R-T Axes : 91 16 191 degrees QTcB Int : 535 ms Sinus rhythm with 1st degree A-V block with Premature supraventricular complexes Left bundle branch block Abnormal ECG When compared with ECG of 17-Jan-2025 14:13, Premature supraventricular complexes are now Present T wave inversion now evident in Inferior leads Referred By: Stefany Yeboah Electronically Signed By: Bacilio Ahumada
[2025-01-22] MEDS: 0.9 % Sodium Chloride Flush 3 ML SYRINGE IVFLUSH ×3 (00:10→17:35)
[2025-01-22 00:31] LABS: INTERNATIONAL NORM RATIO 3.2 (0.9-1.1); Prothrombin Time 36.9 SEC (10.9-12.4)
--- NOTE | 2025-01-22 05:21 | PC.NURSE ---
Patient is resting comfortably with RR even and unlabored. Occasional desats into 89% RA but quickly returns back to above 90%. Patient is able to make needs known, no complaints of pain. Ambulates with assistance to the bathroom. Even chest rise and fall while laying in stretcher, both side rails are up for safety. Patient has her call hooper on the bed.
[2025-01-22 05:38] LABS: Hematocrit 30.2 % (37.0-47.0); Hemoglobin 9.1 g/dl (12.0-16.0); Mean Corpuscular HGB Conc 30.1 g/dl (31.0-35.0); Mean Corpuscular Hemoglobin 23.5 pg (27.0-33.0); Mean Corpuscular Volume 78.0 fL (80.0-98.0); NRBC Abs Auto 0.000 X10*3/uL (0.0-0.012); NRBC Pct Auto 0.0 /100WBC (0.0-0.2); Platelet Count 255 X10*3/uL (160-400); Red Blood Count 3.87 X10*6/uL (4.20-5.50); White Blood Count 7.5 X10*3/uL (4.8-10.8)
[2025-01-22 06:01] LABS: Anion Gap 13 (12-20); Blood Urea Nitrogen 29 mg/dL (9-16); Calcium 9.1 mg/dL (8.4-10.2); Carbon Dioxide 27 mmol/L (22-29); Chloride 107 mmol/L (96-108); Cholesterol 157 mg/dL (<200); Creatinine Clr Calc Pharmacy 38.6; Estimated Glomerular Filt Rate 50; HDL Cholesterol 38 mg/dL (>40); Potassium 4.1 mmol/L (3.3-5.1); Sodium 143 mmol/L (135-145); Triglycerides 107 mg/dL (<150)
[2025-01-22 06:16] LABS: Syphilis Screen Nonreactive (Nonreactive)
[2025-01-22 06:29] LABS: Folate 11.2 ng/mL (> or = 4.0); Vitamin B12 404 pg/mL (200-900)
--- NOTE | 2025-01-22 08:09 | PHA.MEDREC ---
Pharmacy Consult ? Medication Reconciliation Pharmacy has completed the medication reconciliation.
[2025-01-22 08:52] LABS: Glucose, Whole Blood 123 mg/dL (60-115)
--- NOTE | 2025-01-22 09:07 | PC.NURSE ---
This RN assumed care of patient @ 0700 Patient Beninese speaking, aerial photograph interpreter utilized [employer] screening form completed and faxed Denies pain at this time Patient currently enjoying breakfast
--- NOTE | 2025-01-22 12:02 | PM.NEUROCN ---
History of Present Illness Data of Consult Service Date: 01/22/25 Primary Care Provider: Paco Schuler MD [facility] Reason for consult: Headache and right-sided weak 79-year-old female with a past medical history significant for hypertension, diabetes, hyperlipidemia, HFpEF and mechanical aortic valve replacement on warfarin, who presented to the ED again due to weakness for the past few weeks with associated right lower extremity weakness, dizziness and gait instability. She used to have headaches in young age. Now she was feeling better. There was no complaint of double vision seizure-like episode or difficulty speaking Review of Systems Review of Systems: No recent cold or flu-like PMFSH Past Medical History Medical History Angiectasia AVM (arteriovenous malformation) of colon On warfarin therapy Anemia Breast cancer Diabetes Anticoagulated on Coumadin Hypertension Surgical History Surgical History Status post ablation of incompetent vein using laser Heart valve replaced Social History Social History Household Members: Children Housing: House Are you a primary physician locums urgent care to a significant other at home: No Do you presently have visiting nurse or other home services: No Unable to assess alcohol history related to: Unknown Alcohol intake: never Patient Tobacco Use Status: Never used Tobacco Smoked in Last 30 Days: No Use of substances other than those prescribed or required for medical reasons: No Advance Directives: Yes Advance Directives on File: Yes Advance Directives Date on File: 07/16/24 Nutrition Risks: No Nutritional Risk service: No Meds Allergies Allergy/AdvReac Type Severity Reaction Status Date / Time No Known Allergies Allergy Verified 01/21/25 19:11 Active Medications: Current Medications Acetaminophen (Acetaminophen 325 Mg Tablet) 975 mg PO Q6H PRN PRN Reason: Pain, Mild 1-3,fever,headache Aspirin (Aspirin 81 Mg Tab.Chew) 81 mg PO DAILY JU[facility] Atorvastatin Calcium (Atorvastatin Calcium 80 Mg Tablet) 80 mg PO DAILY JUANITA Last Admin: 01/22/25 08:26 Dose: 80 mg Calcium Carbonate (Calcium Carbonate 750 Mg Tab.Chew) 750 mg PO Q4H PRN PRN Reason: Heartburn Ceftriaxone Sodium (Ceftriaxone Sodium 1 Gm Vial) 1 gm IVPUSH Q24H [facility] Dextrose (Dextrose 50 % 25 Gm/50 Ml Syringe) 25 gm IVPUSH Q15M PRN; Protocol PRN Reason: per Hypoglycemia Standing Ord. Empagliflozin (Empagliflozin 10 Mg Tablet) 10 mg PO DAILY [facility] Glucose (Glucose Gel 15 Gm Gel..Gram.) 15 gm PO Q15M PRN; Protocol PRN Reason: per Hypoglycemia Standing Ord. Insulin Human Lispro (Insulin Lispro 100 Unit/Ml 3 Ml Vial) 0 unit SUBCUT QIDACHS [facility]; Protocol Last Admin: 01/22/25 09:01 Dose: Not Given Magnesium Hydroxide (Milk Of Magnesia 30 Ml Oral.Susp) 30 ml PO DAILY PRN PRN Reason: Constipation Melatonin (Melatonin 3 Mg Tablet) 6 mg PO BEDTIME PRN PRN Reason: Insomnia Omeprazole (Omeprazole 20 Mg Capsule.Dr) 20 mg PO DAILY@06 [facility] Ondansetron HCl (Ondansetron Hcl 4 Mg/2 Ml Vial) 4 mg IVPUSH Q8H PRN PRN Reason: Nausea and Vomiting Oxycodone HCl (Oxycodone Hcl Immed Release 5 Mg Tablet) 5 mg PO Q6H PRN PRN Reason: Pain, Severe (Pain Scale 7-10) Sodium Chloride (0.9 % Sodium Chloride Flush 3 Ml Syringe) 3 ml IVFLUSH QSHIFT [facility] Last Admin: 01/22/25 08:26 Dose: 3 ml Tramadol HCl (Tramadol Hcl 50 Mg Tablet) 50 mg PO Q6H PRN PRN Reason: Pain, Moderate(Pain Scale 4-6) Warfarin Sodium (Warfarin Sodium 5 Mg Tablet) 5 mg PO SUMOWEFRSA@1800 [facility] Warfarin Sodium (Warfarin Sodium 7.5 Mg Tablet) 7.5 mg PO TUTH@1800 [facility] Home Medications ?Medication ?Instructions ?Recorded ?Confirmed ?Last Taken ?Type atorvastatin 40 mg tablet 40 mg PO DAILY@89906/12/24 01/22/25 01/21/25 History insulin glargine 100 unit/mL (3 30 unit subcut DAILY@89906/12/24 01/22/25 01/21/25 History mL) subcutaneous pen (Lantus Solostar U-100 Insulin) metformin 850 mg tablet 850 mg PO DAILY@209906/12/24 01/22/25 01/21/25 History metoprolol tartrate 50 mg tablet 50 mg PO BID 06/12/24 01/22/25 01/21/25 History valsartan 160 mg tablet 160 mg PO DAILY@0900 06/12/24 01/22/25 01/21/25 History warfarin 5 mg tablet 7.5 mg PO TUTH@1800 06/12/24 01/22/25 01/20/25 History pantoprazole 40 mg tablet,delayed 40 mg PO DAILY@0630 07/16/24 01/22/25 01/21/25 History release warfarin 5 mg tablet 5 mg PO SUMOWEFRSA@1800 07/16/24 01/22/25 01/21/25 History estradiol 0.01% (0.1 mg/gram) 1 appl vaginal MOWEFR 10/19/24 01/22/25 01/21/25 History vaginal cream furosemide 20 mg tablet 20 mg PO DAILY 10/31/24 01/22/25 01/21/25 History Physical Exam Vital Signs: Vital Signs: Last Vital Signs Temp 97.8 F 01/22/25 09:04 Pulse 85 01/22/25 11:29 Resp 13 01/22/25 09:04 BP 140/62 H 01/22/25 11:29 Pulse Ox 97 01/22/25 11:29 O2 Del Method Room Air 01/22/25 09:04 BMI result Body Mass Index 29.4 Neuro: Other: She is alert and awake with normal spontaneity of speech fluency comprehension and affect. Face is symmetrical. Visual doss are full. There was no pronator drift. There was no visual or sensory extinction. No focal arm or leg weakness is noted. Plantars are flexor. Deep tendon reflexes are trace to absent. Speech is okay. Results Labs 01/22/25 05:29 01/22/25 05:29 Labs: Short CBC 01/21/25 01/22/25 Range/Units 19:50 05:29 WBC 7.7 7.5 (4.8-10.8) X10*3/uL Hgb 9.2 L 9.1 L (12.0-16.0) g/dl Hct 29.7 L 30.2 L (37.0-47.0) % Plt Count 285 255 (160-400) X10*3/uL BMP 01/21/25 01/22/25 19:50 05:29 Sodium 140 143 Potassium 4.7 4.1 Chloride 103 107 Carbon Dioxide 26 27 BUN 37 H 29 H Creatinine 1.42 H 1.06 Calcium 9.2 9.1 Liver Function 01/21/25 Range/Units 19:50 Total Bilirubin 0.3 (0.0-1.0) mg/dL AST 25 (5-31) U/L ALT 24 (0-31) U/L Alkaline Phosphatase 113 (39-117) U/L Albumin 4.3 (3.5-5.0) g/dL Urine 01/21/25 Range/Units 19:32 Urine Color Yellow Urine Appearance Clear Urine pH 6.0 (5.0-9.0) Ur Specific [place] 1.015 (1.005-1.025) Urine Protein Negative (Neg-Trace) mg/dL Urine Glucose (UA) >=1000 H (Negative) mg/dL Head CT and CTA did not reveal any obvious acute abnormality. No vascular stenosis was noted. Microbiology Microbiology Results: Microbiology 01/21/25 Unknown Urine clean catch - Clean Catch Midstream Urine Culture - Preliminary Culture too young to evaluate. Assessment and Plan (1) Headache: Qualifiers: Headache type: unspecified Headache chronicity pattern: unspecified pattern Intractability: not intractable Qualified Code(s): R51.9 - Headache, unspecified Status: Acute 79 years old woman with underlying risk factors for stroke but also history of probably migraine type of headaches since she was a child came to hospital with dizziness headache and unsteadiness. Differential diagnosis would include metabolic abnormality from an infection, which apparently was not found, stroke, which seems less likely, or migraine. MRI of brain can help differentiate but might not be possible with her. My recommendation is continuing appropriate anticoagulation for mechanical valve, and starting her on topiramate 25 mg at night for migraine control Procedures Date of Service Date of Service: 01/22/25
[2025-01-22 13:45] LABS: Glucose, Whole Blood 170 mg/dL (60-115)
--- NOTE | 2025-01-22 15:05 | P.PNIM_ITS ---
Subjective Subjective Date of Service: 01/22/25 Interval History: Continued right leg weakness Reports talking back to baseline Denies headache or acute vision changes No SOB or difficulty breathing MRI positive for stroke Review of Systems Review of Systems: Yes all other systems are reviewed and are negative Physical Exam 2 Exam: Exam: General: AOx3, no acute distress Resp: CTA bilaterally CVS: S1, S2, RRR GI: +BS, NT, no distention Skin: Warm, dry Neuro: Right upper and lower extremity weakness greater than left. Pt with difficulty tracking movement with eyes. Sensation of light touch intact on face, upper and lower extremities bilaterally. No facial droop noted. No dysarthria were delayed response noted. Negative pronator drift. Extremities: No edema Psych: Appropriate affect Vital Signs: Vital Signs: Last Vital Signs Temp 97.6 F 01/22/25 14:47 Pulse 86 01/22/25 14:47 Resp 17 01/22/25 14:47 BP 142/64 H 01/22/25 14:47 Pulse Ox 94 01/22/25 14:47 O2 Del Method Room Air 01/22/25 14:47 BMI result Body Mass Index 31.9 Objective Data Active Medications Acetaminophen (Acetaminophen 325 Mg Tablet) 975 mg PO Q6H PRN PRN Reason: Pain, Mild 1-3,fever,headache Aspirin (Aspirin 81 Mg Tab.Chew) 81 mg PO DAILY [facility] Last Admin: 01/22/25 12:37 Dose: 81 mg Documented By: SAVANA Atorvastatin Calcium (Atorvastatin Calcium 80 Mg Tablet) 80 mg PO DAILY [facility] Last Admin: 01/22/25 08:26 Dose: 80 mg Documented By: SAVANA Calcium Carbonate (Calcium Carbonate 750 Mg Tab.Chew) 750 mg PO Q4H PRN PRN Reason: Heartburn Ceftriaxone Sodium (Ceftriaxone Sodium 1 Gm Vial) 1 gm IVPUSH Q24H [facility] Dextrose (Dextrose 50 % 25 Gm/50 Ml Syringe) 25 gm IVPUSH Q15M PRN; Protocol PRN Reason: per Hypoglycemia Standing Ord. Empagliflozin (Empagliflozin 10 Mg Tablet) 10 mg PO DAILY [facility] Glucose (Glucose Gel 15 Gm Gel..Gram.) 15 gm PO Q15M PRN; Protocol PRN Reason: per Hypoglycemia Standing Ord. Insulin Human Lispro (Insulin Lispro 100 Unit/Ml 3 Ml Vial) 0 unit SUBCUT QIDACHS [facility]; Protocol Last Admin: 01/22/25 13:45 Dose: 2 unit Documented By: SAVANA Magnesium Hydroxide (Milk Of Magnesia 30 Ml Oral.Susp) 30 ml PO DAILY PRN PRN Reason: Constipation Melatonin (Melatonin 3 Mg Tablet) 6 mg PO BEDTIME PRN PRN Reason: Insomnia Omeprazole (Omeprazole 20 Mg Capsule.Dr) 20 mg PO DAILY@0630 [facility] Ondansetron HCl (Ondansetron Hcl 4 Mg/2 Ml Vial) 4 mg IVPUSH Q8H PRN PRN Reason: Nausea and Vomiting Oxycodone HCl (Oxycodone Hcl Immed Release 5 Mg Tablet) 5 mg PO Q6H PRN PRN Reason: Pain, Severe (Pain Scale 7-10) Sodium Chloride (0.9 % Sodium Chloride Flush 3 Ml Syringe) 3 ml IVFLUSH QSHIFT [facility] Last Admin: 01/22/25 08:26 Dose: 3 ml Documented By: SAVANA Tramadol HCl (Tramadol Hcl 50 Mg Tablet) 50 mg PO Q6H PRN PRN Reason: Pain, Moderate(Pain Scale 4-6) Warfarin Sodium (Warfarin Sodium 5 Mg Tablet) 5 mg PO SUMOWEFRSA@1800 [facility] Warfarin Sodium (Warfarin Sodium 7.5 Mg Tablet) 7.5 mg PO TUTH@1800 [facility] Labs 01/22/25 05:29 01/22/25 05:29 Labs: Laboratory Results - last 24 hr 01/21/25 01/21/25 01/21/25 19:32 19:50 23:39 MCV 76.0 L MCH 23.5 L MCHC 31.0 RDW 15.4 Plt Count 285 MPV 10.0 Immature Gran % (Auto) 0.3 Neut % (Auto) 70.1 Lymph % (Auto) 17.9 L [place] % (Auto) 10.2 Eos % (Auto) 1.0 Baso % (Auto) 0.5 Lymph # (Auto) 1.4 [place] # (Auto) 0.8 Eos # (Auto) 0.1 Baso # (Auto) 0.0 Abs Immat Gran (auto) 0.02 Absolute Neuts (auto) 5.4 Absolute Nucleated RBC 0.000 Nucleated RBC % (auto) 0.0 PT INR Anion Gap 16 Estim Creat Clear Calc 28.8 Estimated GFR 36 POC Glucose Random Glucose 222 H Lactic Acid 1.8 Calcium 9.2 Magnesium 2.3 Total Bilirubin 0.3 AST 25 ALT 24 Alkaline Phosphatase 113 Total Protein 6.9 Albumin 4.3 Triglycerides Cholesterol LDL Cholesterol, Calc HDL Cholesterol Vitamin B12 Folate TSH Urine Color Yellow Urine Appearance Clear Urine pH 6.0 Ur Specific [place] 1.015 Urine Protein Negative Urine Glucose (UA) >=1000 H Urine Ketones Negative Urine Blood Trace Urine Nitrite Negative Ur Leukocyte Esterase Negative Urine RBC 3-5 H Urine WBC 21-50 H Ur Squamous Epith Cells 3-5 Urine Bacteria None Seen Hyaline Casts 0-2 T.pallidum Ab (EIA) COVID-19 ([facility]) Negative COVID-19 Clin Com See Note 01/22/25 01/22/25 01/22/25 00:18 05:29 08:49 MCV 78.0 L MCH 23.5 L MCHC 30.1 L RDW 15.2 Plt Count 255 MPV 9.2 L Immature Gran % (Auto) Neut % (Auto) Lymph % (Auto) [place] % (Auto) Eos % (Auto) Baso % (Auto) Lymph # (Auto) [place] # (Auto) Eos # (Auto) Baso # (Auto) Abs Immat Gran (auto) Absolute Neuts (auto) Absolute Nucleated RBC 0.000 Nucleated RBC % (auto) 0.0 PT 36.9 H INR 3.2 H Anion Gap 13 Estim Creat Clear Calc 38.6 Estimated GFR 50 POC Glucose 123 H Random Glucose 131 H Lactic Acid Calcium 9.1 Magnesium Total Bilirubin AST ALT Alkaline Phosphatase Total Protein Albumin Triglycerides 107 Cholesterol 157 LDL Cholesterol, Calc 98 HDL Cholesterol 38 L Vitamin B12 404 Folate 11.2 TSH 2.30 Urine Color Urine Appearance Urine pH Ur Specific [place] Urine Protein Urine Glucose (UA) Urine Ketones Urine Blood Urine Nitrite Ur Leukocyte Esterase Urine RBC Urine WBC Ur Squamous Epith Cells Urine Bacteria Hyaline Casts T.pallidum Ab (EIA) Nonreactive COVID-19 ([facility]) COVID-19 Clin Com 01/22/25 13:42 MCV MCH MCHC RDW Plt Count MPV Immature Gran % (Auto) Neut % (Auto) Lymph % (Auto) [place] % (Auto) Eos % (Auto) Baso % (Auto) Lymph # (Auto) [place] # (Auto) Eos # (Auto) Baso # (Auto) Abs Immat Gran (auto) Absolute Neuts (auto) Absolute Nucleated RBC Nucleated RBC % (auto) PT INR Anion Gap Estim Creat Clear Calc Estimated GFR POC Glucose 170 H Random Glucose Lactic Acid Calcium Magnesium Total Bilirubin AST ALT Alkaline Phosphatase Total Protein Albumin Triglycerides Cholesterol LDL Cholesterol, Calc HDL Cholesterol Vitamin B12 Folate TSH Urine Color Urine Appearance Urine pH Ur Specific [place] Urine Protein Urine Glucose (UA) Urine Ketones Urine Blood Urine Nitrite Ur Leukocyte Esterase Urine RBC Urine WBC Ur Squamous Epith Cells Urine Bacteria Hyaline Casts T.pallidum Ab (EIA) COVID-19 ([facility]) COVID-19 Clin Com Microbiology Microbiology Results: Microbiology 01/21/25 Unknown Urine Culture - Preliminary Urine clean catch - Clean Catch Midstream Culture too young to evaluate. Assessment and Plan (1) Cerebral infarct: Status: Acute Assessment and Plan: Patient is a 79-year-old female with a past medical history significant for hypertension, diabetes, hyperlipidemia, HFpEF and mechanical aortic valve replacement on warfarin, who presented to the ED again due to weakness for the past few weeks with associated right lower extremity weakness, dizziness and gait instability. CVA vs TIA - Right lower extremity weakness (resolved), aphasia with possible cerebral infarct on CT - sx have improved since arriving to ED - head CT with acute infarction left centrum semiovale, recommend MRI - CTA head/neck with dilated ascending aorta measuring 4.4 cm - MRI head showed acute to subacute left-sided watershed infarct and additional infarct in medial right frontal region; also showed innumerable multifocal microhemorrhages - neurology consult - echo with bubble study - passed bedside swallow - high-intensity statin - lipid panel largely WNL - monitor on telemetry - PT/OT/speech - no aspirin, continue Coumadin as per Neurology BELEN, resovled - cr 1.42-->1.06 after IVF in ED - avoid nephrotoxins when possible - monitor BMP ?UTI - UA equivocal - no leukocytosis, vitals stable, no sepsis - urine culture pending - started on empiric ceftriaxone pending culture - follow urine cx Anemia, microcytic - hgb 9.2, hct 29.7, stable - no need for blood transfusion at this time - monitor CBC HTN - continue home meds after 24 hours DM - sliding scale insulin, Lantus - diabetic diet HLD - increased statin chronic HFpEF - no acute exacerbation mechanical valve - warfarin consult in - INR supratherapeutic at 3.2; goal 2-3 - Reduce warfarin to 2.5mg today; resume normal dosing tomrrow - check PT/INR full code VTE prophy: warfarin Pt with weakness possible CVA vs TIA requiring admission for at least 2 midnights stay for further evaluation and monitoring. Quality Stroke Does the patient have a stroke diagnosis?: No VTE Prior VTE?: No VTE Risk Level:: Medical - moderate - high VTE Device Contraindication: Treatment Not Indicated VTE Drug Contraindication: N/A - Med Ordered
[2025-01-22 16:05] LABS: Glucose, Whole Blood 179 mg/dL (60-115)
[2025-01-22 20:40] LABS: Glucose, Whole Blood 239 mg/dL (60-115)
[2025-01-23] VITALS (7 sets, daily range): BP systolic 113–169; BP diastolic 58–71; PULSE 70–101; RESP 16–20; TEMP 36.2–36.6; O2SAT 92–97
[2025-01-23] MEDS: 0.9 % Sodium Chloride Flush 3 ML SYRINGE IVFLUSH ×3 (01:08→20:42)
[2025-01-23 07:40] LABS: Glucose, Whole Blood 194 mg/dL (60-115)
[2025-01-23 08:03] LABS: Hematocrit 33.5 % (37.0-47.0); Hemoglobin 9.9 g/dl (12.0-16.0); Mean Corpuscular HGB Conc 29.6 g/dl (31.0-35.0); Mean Corpuscular Hemoglobin 23.2 pg (27.0-33.0); Mean Corpuscular Volume 78.6 fL (80.0-98.0); NRBC Abs Auto 0.000 X10*3/uL (0.0-0.012); NRBC Pct Auto 0.0 /100WBC (0.0-0.2); Platelet Count 300 X10*3/uL (160-400); Red Blood Count 4.26 X10*6/uL (4.20-5.50); White Blood Count 9.9 X10*3/uL (4.8-10.8)
[2025-01-23 08:08] LABS: INTERNATIONAL NORM RATIO 3.6 (0.9-1.1); Prothrombin Time 41.8 SEC (10.9-12.4)
[2025-01-23 08:18] LABS: Anion Gap 16 (12-20); Blood Urea Nitrogen 24 mg/dL (9-16); Calcium 9.3 mg/dL (8.4-10.2); Carbon Dioxide 23 mmol/L (22-29); Chloride 106 mmol/L (96-108); Creatinine Clr Calc Pharmacy 44.9; Estimated Glomerular Filt Rate 57; Potassium 3.9 mmol/L (3.3-5.1); Sodium 141 mmol/L (135-145)
[2025-01-23] MEDS: Insulin Glargine,Hum.rec.anlog 100 UNIT/ML 10 ML VIAL 21 UNIT SUBCUT (09:01)
[2025-01-23 11:07] LABS: Glucose, Whole Blood 230 mg/dL (60-115)
--- NOTE | 2025-01-23 11:10 | MHC.CM.PN ---
CM spoke to pt. she speaks a little Tunisian, asked that I call her family with questions, message left for primary contact:
--- NOTE | 2025-01-23 12:02 | MHC.CM.PN ---
Addendum entered by Vika Chandra 01/23/25 12:15: Pt. has used [facility] in the past, if rec. would like them again. Original Note: IMM 01/23/25, Pt. lives with her (he has Dementia) and her son and dtr in law. She does not use home health services, she has uses a walker only recently. PCP confirmed: Paco Schuler. HCP is her son, copy to be requested from [facility]. DCP: Acute rehab, [facility] first choice, and is following. CM to follow for DC needs.
[2025-01-23 16:23] LABS: Glucose, Whole Blood 158 mg/dL (60-115)
--- NOTE | 2025-01-23 16:46 | P.PNIM_ITS ---
Subjective Subjective Date of Service: 01/23/25 Interval History: Feels weak, and has difficulty walking Reports having to hold utensils and food with both hands in order to eat Feels like her fingers are ?shaking? Has been up and out of bed, as well as sitting on the side of the bed to eat food No acute vision changes No GUTIERREZ Denies CP or pressure No SOB Review of Systems Review of Systems: Yes all other systems are reviewed and are negative Physical Exam 2 Exam: Exam: General: AOx3, no acute distress Resp: CTA bilaterally CVS: S1, S2, RRR, +mechanical click GI: +BS, NT, no distention Skin: Warm, dry Neuro: Cranial nerves II-XII grossly intact bilaterally. Motor grossly intact bilaterally. Slight upper extremity tremors. 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 Strength of upper and lower extremities appears symmetric. Negative pronator drift. No facial droop or dysarthria noted Extremities: No edema Psych: Appropriate affect Vital Signs: Vital Signs: Last Vital Signs Temp 97.1 F 01/23/25 15:40 Pulse 101 H 01/23/25 15:40 Resp 20 01/23/25 15:40 BP 169/70 H 01/23/25 15:40 Pulse Ox 95 01/23/25 15:40 O2 Del Method Room Air 01/23/25 15:40 BMI result Body Mass Index 31.9 Objective Data Active Medications Acetaminophen (Acetaminophen 325 Mg Tablet) 975 mg PO Q6H PRN PRN Reason: Pain, Mild 1-3,fever,headache Aspirin (Aspirin 81 Mg Tab.Chew) 81 mg PO DAILY [facility] Last Admin: 01/23/25 09:00 Dose: 81 mg Documented By: SIENNA Atorvastatin Calcium (Atorvastatin Calcium 80 Mg Tablet) 80 mg PO DAILY [facility] Last Admin: 01/23/25 09:00 Dose: 80 mg Documented By: SIENNA Calcium Carbonate (Calcium Carbonate 750 Mg Tab.Chew) 750 mg PO Q4H PRN PRN Reason: Heartburn Dextrose (Dextrose 50 % 25 Gm/50 Ml Syringe) 25 gm IVPUSH Q15M PRN; Protocol PRN Reason: per Hypoglycemia Standing Ord. Empagliflozin (Empagliflozin 10 Mg Tablet) 10 mg PO DAILY [facility] Last Admin: 01/23/25 09:00 Dose: 10 mg Documented By: SIENNA Glucose (Glucose Gel 15 Gm Gel..Gram.) 15 gm PO Q15M PRN; Protocol PRN Reason: per Hypoglycemia Standing Ord. Insulin Glargine (Insulin Glargine,Hum.Rec.Anlog 100 Unit/Ml 10 Ml Vial) 21 unit SUBCUT DAILY [facility] Last Admin: 01/23/25 09:01 Dose: 21 unit Documented By: SIENNA Insulin Human Lispro (Insulin Lispro 100 Unit/Ml 3 Ml Vial) 0 unit SUBCUT QIDACHS [facility]; Protocol Last Admin: 01/23/25 11:50 Dose: 4 unit Documented By: SIENNA Magnesium Hydroxide (Milk Of Magnesia 30 Ml Oral.Susp) 30 ml PO DAILY PRN PRN Reason: Constipation Melatonin (Melatonin 3 Mg Tablet) 6 mg PO BEDTIME PRN PRN Reason: Insomnia Omeprazole (Omeprazole 20 Mg Capsule.Dr) 20 mg PO DAILY@0630 [facility] Last Admin: 01/23/25 05:25 Dose: 20 mg Documented By: AINSLEY Ondansetron HCl (Ondansetron Hcl 4 Mg/2 Ml Vial) 4 mg IVPUSH Q8H PRN PRN Reason: Nausea and Vomiting Oxycodone HCl (Oxycodone Hcl Immed Release 5 Mg Tablet) 5 mg PO Q6H PRN PRN Reason: Pain, Severe (Pain Scale 7-10) Sodium Chloride (0.9 % Sodium Chloride Flush 3 Ml Syringe) 3 ml IVFLUSH QSHIFT [facility] Last Admin: 01/23/25 15:49 Dose: Not Given Documented By: SIENNA Non-Admin Reason: Previously Administered Tramadol HCl (Tramadol Hcl 50 Mg Tablet) 50 mg PO Q6H PRN PRN Reason: Pain, Moderate(Pain Scale 4-6) Warfarin Sodium (Warfarin Sodium 7.5 Mg Tablet) 7.5 mg PO TUTH@1800 [facility] Warfarin Sodium (Warfarin Sodium 2.5 Mg Tablet) 2.5 mg PO ONCE@1800 ONE Stop: 01/23/25 18:01 Warfarin Sodium (Warfarin Sodium 5 Mg Tablet) 5 mg PO SUMOWEFRSA@1800 [facility] Labs 01/23/25 07:32 01/23/25 07:31 Labs: Laboratory Results - last 24 hr 01/22/25 01/23/25 01/23/25 20:31 07:31 07:32 MCV 78.6 L MCH 23.2 L MCHC 29.6 L RDW 15.6 Plt Count 300 MPV 10.6 Absolute Nucleated RBC 0.000 Nucleated RBC % (auto) 0.0 PT 41.8 H INR 3.6 H Anion Gap 16 Estim Creat Clear Calc 44.9 Estimated GFR 57 POC Glucose 239 H Random Glucose 192 H Calcium 9.3 01/23/25 01/23/25 01/23/25 07:35 10:58 16:20 MCV MCH MCHC RDW Plt Count MPV Absolute Nucleated RBC Nucleated RBC % (auto) PT INR Anion Gap Estim Creat Clear Calc Estimated GFR POC Glucose 194 H 230 H 158 H Random Glucose Calcium Microbiology Microbiology Results: Microbiology 01/21/25 Unknown Urine Culture - Final Urine clean catch - Clean Catch Midstream 01/21/25 23:39 Blood Culture - Preliminary Blood - Venous No growth after 24 hours. 01/21/25 23:39 Blood Culture - Preliminary Blood - Venous No growth after 24 hours. Assessment and Plan (1) Acute CVA (cerebrovascular accident): Status: Acute Assessment and Plan: Patient is a 79-year-old female with a past medical history significant for hypertension, diabetes, hyperlipidemia, HFpEF and mechanical aortic valve replacement on warfarin, who presented to the ED again due to weakness for the past few weeks with associated right lower extremity weakness, dizziness and gait instability. Acute CVA - Presented with right lower extremity weakness, aphasia - head CT with acute infarction left centrum semiovale, recommend MRI - CTA head/neck with dilated ascending aorta measuring 4.4 cm - MRI head showed acute to subacute left-sided watershed infarct and additional infarct in medial right frontal region; also showed innumerable multifocal microhemorrhages - still needs echo with bubble study, to be done morning of 01/24 - passed bedside swallow - high-intensity statin, lipid panel largely WNL - monitor on telemetry - PT/OT/speech - no aspirin, continue Coumadin as per Neurology - Neurology following mechanical valve dysfunction - echocardiogram on 10/19 showed abnormally function mechanical aortic prosthesis with likely stenosis - check repeat echo Suprtherapeutic INR - INR has supratherapeutic; goal 2-3 - continue reduced warfarin at 2.5mg again today; resume normal dosing depending on INR - check PT/INR BELEN, resovled - cr 1.42-->1.06 after IVF in ED - avoid nephrotoxins when possible - monitor BMP ?UTI - UA equivocal - no leukocytosis, vitals stable, no sepsis - urine culture negative, empiric ceftriaxone d/c'd Anemia, microcytic - stable, at baseline HTN - home meds held x24 hours for permissive HT - continue amlodipine, metoprolol, losartan DM - sliding scale insulin, Lantus - diabetic diet HLD - increased statin chronic HFpEF - no acute exacerbation - continue metoprolol and furosemide full code VTE prophy: warfarin Pt will require continued hospitalization for additional workup including echocardiogram that is needed to monitor for valve dysfunction prior to STR placement Quality Stroke Does the patient have a stroke diagnosis?: No VTE Prior VTE?: No VTE Risk Level:: Medical - moderate - high VTE Device Contraindication: Treatment Not Indicated VTE Drug Contraindication: N/A - Med Ordered
[2025-01-23 20:27] LABS: Glucose, Whole Blood 181 mg/dL (60-115)
[2025-01-24] VITALS (10 sets, daily range): BP systolic 134–183; BP diastolic 62–84; PULSE 74–100; RESP 16–18; TEMP 36–36.7; O2SAT 93–98
--- NOTE | 2025-01-24 07:00 | CA_ITS ---
Transthoracic Echocardiogram Patient (Last, First, Middle): Emily Whyte I Gender: Female Date of : 1945 Age: 79 Procedure Date: 01/24/2025 Procedure Type: Transthoracic Echocardiogram Location: [facility] – [place] Height: 154.94 cm Weight: 76.2 kg BSA: 1.75 m2 Heart Rate: bpm BP: 160 / 62 mmHg Operative Supervisor: TO Referring MD: Stefany Yeboah PA-C Symptoms: ?CVA vs TIA Study Quality: Fair/Contrast Conclusions: - 1. Low normal LV ejection fraction 50-55% with mild LVH 2. Moderately dilated left atrium 3. Abnormally functioning mechanical prosthetic aortic valve with mean gradient of 24 mm Hg suggestive of stenosis 4. Severe mitral annular calcification with possible mobile calcific mass with possible mild mitral stenosis 5. Normal RV systolic pressure 6. Moderately dilated ascending aorta at 4.7 cm 7. No gross pericardial effusion Findings Procedure Information Contrast agent, definity, is being given per protocol without apparent complications. Left Ventricle Normal left ventricular cavity size. There is mildly increased left ventricular wall thickness. The left ventricular systolic function is low normal. The visually estimated ejection fraction is between 50-55%. Spectral Doppler is indicative of an impaired relaxation filling pattern. Right Ventricle Normal right ventricular cavity size and systolic function. Atria The left atrium is moderately dilated. Interatrial shunt cannot be excluded. The right atrium is likely dilated. Aortic Valve A mechanical prosthetic aortic valve is present. The prosthetic aortic valve appears to be functioning abnormally. Echo findings are consistent with stenosis of the aortic valve prosthesis. The aortic valve was not well visualized. The mean gradient is 24 mmHg. Mitral Valve There is mild anterior and severe posterior mitral leaflet thickening. There is severe mitral annular calcification. There is no mitral valve regurgitation. There is mild mitral valve stenosis. Mobile possible calcific mass attached to the mitral annual calcification complex. Pulmonic Valve The pulmonic valve was not well visualized. Tricuspid Valve Normal tricuspid valve structure. There is trace tricuspid valve regurgitation. The right ventricular systolic pressure is normal. The right ventricular systolic pressure is 26 mmHg. Normal right atrial pressure. There is no evidence of pulmonary hypertension. Great Vessels The pulmonary artery was not well visualized. There is moderate dilatation of the ascending aorta measuring 4.70 cm. Venous The inferior vena cava is normal in size and collapses greater than 50% with inspiration. Pericardium/Pleural There is no evidence of pericardial effusion. Recommendations, Care & Conclusions Consider a MEGAN if clinically appropriate. Measurements 2D Linear Measurements IVSd: 1.20 0.6-0.9/0.6-1.0 cm LVIDd: 4.74 3.9-5.3/4.2-5.9 cm LVIDd Index: 2.71 2.4-3.2/2.2-3.1 cm/m2 LVIDs: 3.75 2.0-3.6 cm LVPWd: 0.88 0.7-1.1 cm LA Diam: 3.60 2.7-3.8/3.0-4.0 cm LAIDs Index: 2.06 1.5-2.3 cm/m2 LV Mass: 218.57 67-162/88-224 g LV Mass Index: 124.90 43-95/49-115 g/m2 LVOT Diam: 2.00 3.0+(-)1.3 cm 2D Systolic Function EF 4C: 44.00 >55% EF 2C: 58.40 >55% EF BiP: 51.90 >55% Mitral Valve MV VTI: 0.26 MV Pk Cruz: 1.67 MV Mn Cruz: 1.23 MV Pk Grad: 11.00 MV Mn Grad: 7.00 E'Lateral: 4.57 MVA Continuity: 2.04 Aortic Valve AoV Pk Curz: 3.18 AoV Mn Cruz: 2.31 AoV VTI: 0.58 AoV Pk Grad: 40.00 Aov Mn Grad: 24.00 SELENE Cont.VTI: 0.92 LVOT LVOT Pk Cruz: 0.91 LVOT Mn Cruz: 0.68 LVOT VTI: 0.17 LVOT Pk Grad: 3.00 LVOT Mn Grad: 2.00 LVOT Diam: 2.00 LVOT Area: 3.14 Diastolic Function E' Laterial: 4.57 Right Ventricle TAPSE (mm): 20.90 TVS' Cruz: 12.80 Tricuspid Valve TR Pk Cruz: 2.41 TR Pk Grad: 23.00 RA Press: 3.00 RVSP: 26.00 Great Vessels Aorta Ao Asc: 4.70 2.1-3.4 cm Ao Arch: 3.50 Updated in Other Vendor System with Status of Final Mariano Obando MD electronically signed on 01/24/2025 1:47:45 PM with status of Final
[2025-01-24 07:36] LABS: Glucose, Whole Blood 146 mg/dL (60-115)
[2025-01-24 07:39] LABS: Hematocrit 30.8 % (37.0-47.0); Hemoglobin 9.5 g/dl (12.0-16.0); Mean Corpuscular HGB Conc 30.8 g/dl (31.0-35.0); Mean Corpuscular Hemoglobin 23.5 pg (27.0-33.0); Mean Corpuscular Volume 76.0 fL (80.0-98.0); NRBC Abs Auto 0.000 X10*3/uL (0.0-0.012); NRBC Pct Auto 0.0 /100WBC (0.0-0.2); Platelet Count 259 X10*3/uL (160-400); Red Blood Count 4.05 X10*6/uL (4.20-5.50); White Blood Count 8.9 X10*3/uL (4.8-10.8)
[2025-01-24 07:58] LABS: INTERNATIONAL NORM RATIO 2.4 (0.9-1.1); Prothrombin Time 27.4 SEC (10.9-12.4)
[2025-01-24 08:15] LABS: Anion Gap 17 (12-20); Blood Urea Nitrogen 23 mg/dL (9-16); Calcium 9.0 mg/dL (8.4-10.2); Carbon Dioxide 20 mmol/L (22-29); Chloride 108 mmol/L (96-108); Creatinine Clr Calc Pharmacy 46.8; Estimated Glomerular Filt Rate 60; Potassium 4.0 mmol/L (3.3-5.1); Sodium 141 mmol/L (135-145)
[2025-01-24] MEDS: Insulin Glargine,Hum.rec.anlog 100 UNIT/ML 10 ML VIAL 21 UNIT SUBCUT (10:19)
[2025-01-24] MEDS: 0.9 % Sodium Chloride Flush 3 ML SYRINGE IVFLUSH ×3 (10:20→21:22)
[2025-01-24 11:34] LABS: Glucose, Whole Blood 249 mg/dL (60-115)
--- NOTE | 2025-01-24 12:25 | P.PNIM_ITS ---
Subjective Subjective Date of Service: 01/24/25 Interval History: Feeling better overall, more natural Continue to feel some weakness Difficulty holding items steady in her hands Some difficulty finding the right word Review of Systems Review of Systems: Yes all other systems are reviewed and are negative Physical Exam 2 Exam: Exam: General: AOx3, no acute distress. Resting comfortably in recliner Resp: CTA bilaterally CVS: S1, S2. +murmur, +mechanical click GI: +BS, NT, no distention Skin: Warm, dry Neuro: Cranial nerves II-XII grossly intact bilaterally. Motor grossly intact bilaterally. Slight upper extremity tremors. 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 Strength of upper and lower extremities appears symmetric though reduced. Negative pronator drift. No facial droop or dysarthria noted Extremities: No edema Psych: Appropriate affect Vital Signs: Vital Signs: Last Vital Signs Temp 97.3 F 01/24/25 11:26 Pulse 74 01/24/25 11:26 Resp 16 01/24/25 11:26 BP 134/67 01/24/25 11:26 Pulse Ox 95 01/24/25 11:26 O2 Del Method Room Air 01/24/25 11:26 BMI result Body Mass Index 31.9 Objective Data Active Medications Acetaminophen (Acetaminophen 325 Mg Tablet) 975 mg PO Q6H PRN PRN Reason: Pain, Mild 1-3,fever,headache Amlodipine Besylate (Amlodipine Besylate 5 Mg Tablet) 5 mg PO DAILY [facility]; Protocol Last Admin: 01/24/25 10:19 Dose: 5 mg Documented By: ASHLEY Aspirin (Aspirin 81 Mg Tab.Chew) 81 mg PO DAILY [facility] Last Admin: 01/24/25 10:20 Dose: 81 mg Documented By: ASHLEY Atorvastatin Calcium (Atorvastatin Calcium 80 Mg Tablet) 80 mg PO DAILY [facility] Last Admin: 01/24/25 10:20 Dose: 80 mg Documented By: ASHLEY Calcium Carbonate (Calcium Carbonate 750 Mg Tab.Chew) 750 mg PO Q4H PRN PRN Reason: Heartburn Dextrose (Dextrose 50 % 25 Gm/50 Ml Syringe) 25 gm IVPUSH Q15M PRN; Protocol PRN Reason: per Hypoglycemia Standing Ord. Empagliflozin (Empagliflozin 10 Mg Tablet) 10 mg PO DAILY [facility] Last Admin: 01/24/25 10:20 Dose: 10 mg Documented By: ASHLEY Furosemide (Furosemide 20 Mg Tablet) 20 mg PO DAILY [facility]; Protocol Last Admin: 01/24/25 10:19 Dose: 20 mg Documented By: ASHLEY Glucose (Glucose Gel 15 Gm Gel..Gram.) 15 gm PO Q15M PRN; Protocol PRN Reason: per Hypoglycemia Standing Ord. Insulin Glargine (Insulin Glargine,Hum.Rec.Anlog 100 Unit/Ml 10 Ml Vial) 21 unit SUBCUT DAILY [facility] Last Admin: 01/24/25 10:19 Dose: 21 unit Documented By: ASHLEY Insulin Human Lispro (Insulin Lispro 100 Unit/Ml 3 Ml Vial) 0 unit SUBCUT QIDACHS [facility]; Protocol Last Admin: 01/24/25 11:34 Dose: 4 unit Documented By: ASHLEY Magnesium Hydroxide (Milk Of Magnesia 30 Ml Oral.Susp) 30 ml PO DAILY PRN PRN Reason: Constipation Melatonin (Melatonin 3 Mg Tablet) 6 mg PO BEDTIME PRN PRN Reason: Insomnia Metoprolol Tartrate (Metoprolol Tartrate 50 Mg Tablet) 50 mg PO BID [facility]; Protocol Last Admin: 01/24/25 10:20 Dose: 50 mg Documented By: ASHLEY Omeprazole (Omeprazole 20 Mg Capsule.Dr) 20 mg PO DAILY@0630 [facility] Last Admin: 01/24/25 06:20 Dose: 20 mg Documented By: GAGAN Ondansetron HCl (Ondansetron Hcl 4 Mg/2 Ml Vial) 4 mg IVPUSH Q8H PRN PRN Reason: Nausea and Vomiting Oxycodone HCl (Oxycodone Hcl Immed Release 5 Mg Tablet) 5 mg PO Q6H PRN PRN Reason: Pain, Severe (Pain Scale 7-10) Sodium Chloride (0.9 % Sodium Chloride Flush 3 Ml Syringe) 3 ml IVFLUSH QSHIFT [facility] Last Admin: 01/24/25 10:20 Dose: 3 ml Documented By: ASHLEY Tramadol HCl (Tramadol Hcl 50 Mg Tablet) 50 mg PO Q6H PRN PRN Reason: Pain, Moderate(Pain Scale 4-6) Valsartan (Valsartan 160 Mg Tablet) 160 mg PO DAILY@0900 [facility]; Protocol Last Admin: 01/24/25 10:20 Dose: 160 mg Documented By: ASHLEY Warfarin Sodium (Warfarin Sodium 7.5 Mg Tablet) 7.5 mg PO TUTH@1800 [facility] Warfarin Sodium (Warfarin Sodium 5 Mg Tablet) 5 mg PO SUMOWEFRSA@1800 [facility] Labs 01/24/25 07:27 01/24/25 07:27 Labs: Laboratory Results - last 24 hr 01/23/25 01/23/25 01/24/25 16:20 20:22 07:27 MCV 76.0 L MCH 23.5 L MCHC 30.8 L RDW 15.4 Plt Count 259 MPV 10.1 Absolute Nucleated RBC 0.000 Nucleated RBC % (auto) 0.0 PT 27.4 H D INR 2.4 H Anion Gap 17 Estim Creat Clear Calc 46.8 Estimated GFR 60 POC Glucose 158 H 181 H Random Glucose 159 H Calcium 9.0 01/24/25 01/24/25 07:31 11:30 MCV MCH MCHC RDW Plt Count MPV Absolute Nucleated RBC Nucleated RBC % (auto) PT INR Anion Gap Estim Creat Clear Calc Estimated GFR POC Glucose 146 H 249 H Random Glucose Calcium Microbiology Microbiology Results: Microbiology 01/21/25 23:39 Blood Culture - Preliminary Blood - Venous No growth after 48 hours. 01/21/25 23:39 Blood Culture - Preliminary Blood - Venous No growth after 48 hours. 01/21/25 Unknown Urine Culture - Final Urine clean catch - Clean Catch Midstream Assessment and Plan (1) Acute CVA (cerebrovascular accident): Status: Acute Plan Patient is a 79-year-old female with a past medical history significant for hypertension, diabetes, hyperlipidemia, HFpEF and mechanical aortic valve replacement on warfarin, who presented to the ED again due to weakness for the past few weeks with associated right lower extremity weakness, dizziness and gait instability. Acute CVA - Presented with right lower extremity weakness, aphasia - head CT with acute infarction left centrum semiovale, recommend MRI - CTA head/neck with dilated ascending aorta measuring 4.4 cm - MRI head showed acute to subacute left-sided watershed infarct and additional infarct in medial right frontal region; also showed innumerable multifocal microhemorrhages - still needs echo with bubble study, to be done morning of 01/24 - passed bedside swallow - increase to high-intensity statin, lipid panel largely WNL - monitor on telemetry - PT/OT/speech - no aspirin, continue Coumadin as per Neurology - Neurology following mechanical valve dysfunction - echocardiogram on 10/19 showed abnormally function mechanical aortic prosthesis with likely stenosis - check repeat echo - cardiology consult Suprtherapeutic INR - INR has been supratherapeutic through most of stay; goal 2-3 - had warfarin at 2.5mg x2 days; resume normal dosing depending on INR - check PT/INR daily BELEN, resovled - cr 1.42-->1.06 after IVF in ED - avoid nephrotoxins when possible - monitor BMP ?UTI - UA equivocal - no leukocytosis, vitals stable, no sepsis - urine culture negative, empiric ceftriaxone d/c'd Anemia, microcytic - stable, at baseline HTN - home meds held x24 hours for permissive HT - continue amlodipine, metoprolol, losartan DM - sliding scale insulin, Lantus - diabetic diet HLD - increased statin chronic HFpEF - no acute exacerbation - continue metoprolol and furosemide full code VTE prophy: warfarin Pt will require continued hospitalization for additional workup including echocardiogram that is needed to monitor for valve dysfunction prior to STR placement Quality Stroke Does the patient have a stroke diagnosis?: Yes Reason for No Anti-thrombotic by Day Two: N/A - Med Ordered (Pt on warfarin; no aspirin as per neurology) VTE Prior VTE?: No VTE Risk Level:: Medical - moderate - high VTE Device Contraindication: Treatment Not Indicated VTE Drug Contraindication: N/A - Med Ordered
--- NOTE | 2025-01-24 13:00 | P.CONCA_ITS ---
History of Present Illness History of Present Illness Date of Service: 01/24/25 Requesting physician: Bhanu Mckay Chief complaint: weakness Narrative: I was consulted to see Emily in cardiology consultation today, a Czech speaking woman, with her son-in-law present at bedside. History was obtained with help of him. Patient with prior history of prosthetic aortic valve replacement with increased gradient which should have suggested a patient prosthesis mismatch although stenosis or pannus formation could not be entirely ruled out, prior history of heart failure preserved ejection fraction, prior occult GI bleed, diabetes, hypertension came with weakness and was subsequently noted to have CVA with multifocal CVA noted with some punctate microhemorrhages. Patient on presentation had supratherapeutic INRs has been closely followed. Patient is currently being planned to be released to a half-way facility. Cardiology consult was sought because of her stroke and prior prosthetic valve placement with increased gradient. Echo has been performed at bedside. Patient has no history of palpitation. There was no history of atrial fibrillation in the past. Patient has no apparent atrial fibrillation while being monitored. She has no prior history of vascular disease including coronary artery disease. Head and neck CTA does not show any significant extracranial intracranial stenosis. Review of Systems 2 Constitutional: Constitutional: Reports no additional constitutional complaints and Reports weakness Eyes: Eyes: Reports no additional eye complaints Cardiovascular: Cardiovascular: Reports no additional cardiovascular complaints Respiratory: Respiratory: Reports no additional respiratory complaints Gastrointestinal: Gastrointestinal: Reports no additional gastrointestinal complaints Genitourinary: Genitourinary: Reports no additional female genitourinary complaints Neurologic: Reports weakness Psychiatric: Psychiatric: Reports no additional psychiatric complaints [facility] Past Medical History Medical History Angiectasia AVM (arteriovenous malformation) of colon On warfarin therapy Anemia Breast cancer Diabetes Anticoagulated on Coumadin Hypertension Surgical History Surgical History Status post ablation of incompetent vein using laser Heart valve replaced Social History Social History Household Members: Spouse and Children Housing: House Are you a primary farm or ranch animal caretaker to a significant other at home: No Do you presently have visiting nurse or other home services: No Unable to assess alcohol history related to: Unknown Alcohol intake: never Patient Tobacco Use Status: Never used Tobacco Advance Directives Date on File: 07/16/24 service: No Meds Allergies Allergy/AdvReac Type Severity Reaction Status Date / Time No Known Allergies Allergy Verified 01/21/25 19:11 Active Medications: Current Medications Acetaminophen (Acetaminophen 325 Mg Tablet) 975 mg PO Q6H PRN PRN Reason: Pain, Mild 1-3,fever,headache Amlodipine Besylate (Amlodipine Besylate 5 Mg Tablet) 5 mg PO DAILY [facility]; Protocol Last Admin: 01/24/25 10:19 Dose: 5 mg Aspirin (Aspirin 81 Mg Tab.Chew) 81 mg PO DAILY [facility] Last Admin: 01/24/25 10:20 Dose: 81 mg Atorvastatin Calcium (Atorvastatin Calcium 80 Mg Tablet) 80 mg PO DAILY [facility] Last Admin: 01/24/25 10:20 Dose: 80 mg Calcium Carbonate (Calcium Carbonate 750 Mg Tab.Chew) 750 mg PO Q4H PRN PRN Reason: Heartburn Dextrose (Dextrose 50 % 25 Gm/50 Ml Syringe) 25 gm IVPUSH Q15M PRN; Protocol PRN Reason: per Hypoglycemia Standing Ord. Empagliflozin (Empagliflozin 10 Mg Tablet) 10 mg PO DAILY [facility] Last Admin: 01/24/25 10:20 Dose: 10 mg Furosemide (Furosemide 20 Mg Tablet) 20 mg PO DAILY [facility]; Protocol Last Admin: 01/24/25 10:19 Dose: 20 mg Glucose (Glucose Gel 15 Gm Gel..Gram.) 15 gm PO Q15M PRN; Protocol PRN Reason: per Hypoglycemia Standing Ord. Insulin Glargine (Insulin Glargine,Hum.Rec.Anlog 100 Unit/Ml 10 Ml Vial) 21 unit SUBCUT DAILY [facility] Last Admin: 01/24/25 10:19 Dose: 21 unit Insulin Human Lispro (Insulin Lispro 100 Unit/Ml 3 Ml Vial) 0 unit SUBCUT QIDACHS [facility]; Protocol Last Admin: 01/24/25 11:34 Dose: 4 unit Magnesium Hydroxide (Milk Of Magnesia 30 Ml Oral.Susp) 30 ml PO DAILY PRN PRN Reason: Constipation Melatonin (Melatonin 3 Mg Tablet) 6 mg PO BEDTIME PRN PRN Reason: Insomnia Metoprolol Tartrate (Metoprolol Tartrate 50 Mg Tablet) 50 mg PO BID [facility]; Protocol Last Admin: 01/24/25 10:20 Dose: 50 mg Omeprazole (Omeprazole 20 Mg Capsule.Dr) 20 mg PO DAILY@0630 [facility] Last Admin: 01/24/25 06:20 Dose: 20 mg Ondansetron HCl (Ondansetron Hcl 4 Mg/2 Ml Vial) 4 mg IVPUSH Q8H PRN PRN Reason: Nausea and Vomiting Oxycodone HCl (Oxycodone Hcl Immed Release 5 Mg Tablet) 5 mg PO Q6H PRN PRN Reason: Pain, Severe (Pain Scale 7-10) Sodium Chloride (0.9 % Sodium Chloride Flush 3 Ml Syringe) [facility] Last Admin: 01/24/25 10:20 Dose: 3 ml Tramadol HCl (Tramadol Hcl 50 Mg Tablet) 50 mg PO Q6H PRN PRN Reason: Pain, Moderate(Pain Scale 4-6) Valsartan (Valsartan 160 Mg Tablet) 160 mg PO DAILY@09 [facility]; Protocol Last Admin: 01/24/25 10:20 Dose: 160 mg Warfarin Sodium (Warfarin Sodium 7.5 Mg Tablet) 7.5 mg PO TUTH@1800 [facility] Warfarin Sodium (Warfarin Sodium 5 Mg Tablet) 5 mg PO SUMOWEFRSA@1800 [facility] Home Medications ?Medication ?Instructions ?Recorded ?Confirmed ?Last Taken ?Type atorvastatin 40 mg tablet 40 mg PO DAILY@0906/12/24 01/22/25 01/21/25 History insulin glargine 100 unit/mL (3 30 unit subcut DAILY@0 900 06/12/24 01/22/25 01/21/25 History mL) subcutaneous pen (Lantus Solostar U-100 Insulin) metformin 850 mg tablet 850 mg PO DAILY@209901/22/25 01/21/25 History metoprolol tartrate 50 mg tablet 50 mg PO BID 06/12/24 01/22/25 01/21/25 History valsartan 160 mg tablet 160 mg PO DAILY@899 5 01/22/25 01/21/25 History warfarin 5 mg tablet 7.5 mg PO TUTH@179906/12/24 01/22/25 01/20/25 History pantoprazole 40 mg tablet,delayed 40 mg PO DAILY@62907/16/24 01/22/25 01/21/25 History release warfarin 5 mg tablet 5 mg PO SUMOWEFRSA@1800 02/06/1901/22/25 01/21/25 History estradiol 0.01% (0.1 mg/gram) 1 appl vaginal MOWEFR 01/22/25 01/21/25 History vaginal cream furosemide 20 mg tablet 20 mg PO DAILY 10/31/24 08/01/21/25 History Physical Exam 2 Vital Signs: Vital Signs: Last Vital Signs Temp 97.3 F 01/24/25 11:26 Pulse 74 01/24/25 11:26 Resp 16 01/24/25 11:26 BP 134/67 01/24/25 11:26 Pulse Ox 95 01/24/25 11:26 O2 Del Method Room Air 01/24/25 11:26 BMI result Body Mass Index 31.9 Const: General: cooperative, comfortable, no acute distress, alert, awake and Physically active Nutritional Appearance: average body habitus O rientation/consciousness: patient oriented x3 HEENT: Head: Yes normocephalic and Yes atraumatic Neck: Neck: Yes trachea midline, Yes supple and Yes no JVD Resp: Effort & Inspection: normal respiratory effort Auscultation: clear to auscultation bilaterally Cardio: Jugular venous distension: no JVD Rate: regular rate Rhythm: r egular rhythm Heart sounds: S1 normal heart sound present, Clicking heart sound present, no gallops and Murmur heart sound present systolic late GI: Auscultation: normal bowel sounds Skin: General skin exam: no rashes or lesions noted Neuro: General: patient oriented x3 and no focal motor deficits Extrem: General: Yes no clubbing, cyanosis or edema Objective Labs and Meds 01/24/25 07:27 01/24/25 07:27 Lab results: Laboratory Results - last 24 hr 01/23/25 01/23/25 01/24/25 16:20 20:22 07:27 WBC 8.9 RBC 4.05 L Hgb 9.5 L Hct 30.8 L MCV 76.0 L MCH 23.5 L MCHC 30.8 L RDW 15.4 Plt Count 259 MPV 10.1 Absolute Nucleated RBC 0.000 Nucleated RBC % (auto) 0.0 PT 27.4 H D INR 2.4 H Sodium 141 Potassium 4.0 Chloride 108 Carbon Dioxide 20 L Anion Gap 17 BUN 23 H Creatinine 0.91 Estim Creat Clear Calc 46.8 Estimated GFR 60 POC Glucose 158 H 181 H Random Glucose 159 H Calcium 9.0 01/24/25 01/24/25 07:31 11:30 WBC RBC Hgb Hct MCV MCH MCHC RDW Plt Count MPV Absolute Nucleated RBC Nucleated RBC % (auto) PT INR Sodium Potassium Chloride Carbon Dioxide Anion Gap BUN Creatinine Estim Creat Clear Calc Estimated GFR POC Glucose 146 H 249 H Random Glucose Calcium Assessment and Plan (1) Cerebral infarct: Status: Acute Acute cerebral infarct in this elderly woman with known prior mechanical aortic valve present with supratherapeutic INR presentation. Her immediate prior INRs unknown although unlikely that she has had significantly low INRs in the past. She maintains with adequate INR at this point time. She has increased gradient across the prosthetic aortic valve without any evidence of any infection or blood cultures being positive suggestive of endocarditis. Prosthetic valve clotting is possible although with therapeutic INR this is less likely. There was no obvious vascular etiology for her stroke with no intracranial extracranial stenosis noted on the CTA. There was no evidence of atrial arrhythmias or atrial fibrillation however that could be a possibility in her case. Given her stroke while on supratherapeutic INRs, would suggest addition of aspirin to her regimen till we pursue further cause any evaluation. She will most likely require transesophageal echocardiogram as an outpatient to assess for other etiologies of stroke. This was discussed with patient and patient's son-in-law was present at bedside. 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 Currently patient is being released to a half-way facility for rehab. Will sign of the case. Thank you for allowing me to partake in her care Procedures Date of Service Date of Service: 01/24/25
--- NOTE | 2025-01-24 13:11 | MHC.SP.ADU ---
Referring provider: Stefany Yeboah Reason for Referral: CVA Type of Treatment: 64338 Assessment of Aphasia Date of Plan of Treatment: 01/22/25 Onset of Symptoms/Illness: 01/22/25 Date Treatment Started: 01/24/25 Medical Diagnosis: (1) Acute CVA (cerebrovascular accident): Status: Acute Primary Speech Language Diagnosis: R47.01 Aphasia Secondary Speech Language Diagnosis: History MD note: Patient is a 79-year-old female with a past medical history significant for hypertension, diabetes, hyperlipidemia, HFpEF and mechanical aortic valve replacement on warfarin, who presented to the ED again due to weakness for the past few weeks with associated right lower extremity weakness, dizziness and gait instability. Acute CVA - Presented with right lower extremity weakness, aphasia - head CT with acute infarction left centrum semiovale, recommend MRI - CTA head/neck with dilated ascending aorta measuring 4.4 cm - MRI head showed acute to subacute left-sided watershed infarct and additional infarct in medial right frontal region; also showed innumerable multifocal microhemorrhages - still needs echo with bubble study, to be done morning of 01/24 - passed bedside swallow - increase to high-intensity statin, lipid panel largely WNL - monitor on telemetry - PT/OT/speech - no aspirin, continue Coumadin as per Neurology - Neurology following mechanical valve dysfunction - echocardiogram on 10/19 showed abnormally function mechanical aortic prosthesis with likely stenosis - check repeat echo - cardiology consult Suprtherapeutic INR - INR has been supratherapeutic through most of stay; goal 2-3 - had warfarin at 2.5mg x2 days; resume normal dosing depending on INR - check PT/INR daily BELEN, resovled - cr 1.42-->1.06 after IVF in ED - avoid nephrotoxins when possible - monitor BMP ?UTI - UA equivocal - no leukocytosis, vitals stable, no sepsis - urine culture negative, empiric ceftriaxone d/c'd Anemia, microcytic - stable, at baseline HTN - home meds held x24 hours for permissive HT - continue amlodipine, metoprolol, losartan DM - sliding scale insulin, Lantus - diabetic diet HLD - increased statin chronic HFpEF - no acute exacerbation - continue metoprolol and furosemide full code VTE prophy: warfarin Pt will require continued hospitalization for additional workup including echocardiogram that is needed to monitor for valve dysfunction prior to STR placement Medical History: Other: Medication List: Recent Hospitalizations: No Respiratory Needs: Room Air Patient Orientation: Alert & Oriented x 4 Social History: Employment Status: Highest level of education obtained: Current Living Situation: Assistive Devices in use: Comment: Past Speech Language Therapy: Other Therapies Seen in Current Calendar Year: Other: Swallowing History: Dysphagia Specific: Within Functional Limits Comments: Pre-eval Risk for Aspiration: Pre-evaluation Dietary Consistencies: Regular Pre-eval Liquid Intake: Thin Pre-eval Medication Intake: Whole with Liquid Reported Speech, Language, Cognition difficulties: Understanding Speaking Comments: Pt presents with mild receptive and expressive aphasia characterized by reduced processing speed for verbal information and mild anomia at the sentence and conversation levels. 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 Pt alert, attentive, aware of listener's needs, responsive and thoughtful. Motor speech articulation WNL, accurate grammar in Greenlandic. 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 [employer] BU[employer] STRA[employer] provided education on recc skilled ST to address aphasia s/p CVA, it is anticipated pt will experience adequate spontaneous recovery but intervention has been recommended to promote steady and efficient resumption of PLOF. Pt and pt son in agreement with recommendations. Quality of Life: Considered to be adequate per pt son report, though pt does express stress about her spouse's dementia. Patient Stated Goal of Speech-Language Therapy: Resumption of PLOF in functional communication across receptive and expressive domains. Assessment Speech Production: Aphasic: Nonfluent Articulate Clinical Impression: Intact Observations: Informal Voice Assessment: Voice Loudness: Normal Voice Nasal Resonance: Normal Voice Oral Resonance: Normal Voice Phonatory-based Quality: Normal Voice Pitch: Normal Voice Other Observations: Clinical Impression: Intact Clinicial Observations: Tests of Speech & Lang Adults: BDAE Clinical Impression: Impaired Observations: Pt's communication rated at 3 to 4 on Aphasia Severity Rating Scale of the BDAE. Pt presents with some obvious loss of fluency in speech or facility of comprehension, without significant limitation on ideas expressed or form of expression. Pt can discuss almost all everyday problems with little or no assistance. Reduction o speech and/or comprehension, however, makes conversation about certain material difficult. Impressions and Recommendations Summary: Impact on Daily Function/Activity Limitations: Daily Activities: Mild Interpersonal Interactions: Mild Education: Employment: Community: Prognosis for Improvement: Good Comment: Recommendation for Speech Therapy: Speech Therapy through Rehab Facility Recommended Referrals to be Discussed with Primary Care Provider: Patient Education: Completed: Yes Patient/Caregiver Education: Described Results of Evaluation Patient expressed understanding of evaluation Patient agrees with goals and treatment plan Family/Caregivers expressed agreement with goals and treatment plan 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
[2025-01-24 17:43] LABS: Glucose, Whole Blood 144 mg/dL (60-115)
[2025-01-24 20:09] LABS: Glucose, Whole Blood 114 mg/dL (60-115)
[2025-01-25] VITALS (8 sets, daily range): BP systolic 109–158; BP diastolic 62–72; PULSE 71–93; RESP 16–20; TEMP 36.5–37.3; O2SAT 95–98
[2025-01-25 07:32] LABS: Glucose, Whole Blood 120 mg/dL (60-115)
[2025-01-25] MEDS: Insulin Glargine,Hum.rec.anlog 100 UNIT/ML 10 ML VIAL 21 UNIT SUBCUT (07:59)
[2025-01-25] MEDS: 0.9 % Sodium Chloride Flush 3 ML SYRINGE IVFLUSH ×2 (08:00→21:03)
[2025-01-25 08:17] LABS: INTERNATIONAL NORM RATIO 2.5 (0.9-1.1); Prothrombin Time 28.3 SEC (10.9-12.4)
[2025-01-25 11:14] LABS: Glucose, Whole Blood 224 mg/dL (60-115)
--- NOTE | 2025-01-25 12:43 | MHC.CM.PN ---
EMR REVIEWED, CRISTIANO REQUESTING UPDATED PT/MD NOTE TO SUBMIT TO [facility] FOR AUTH, PT UPDATED AND CM WILL UPDATE REFERRAL ONCE DONE. CM WILL CONT TO FOLLOW.
--- NOTE | 2025-01-25 13:31 | P.PNIM_ITS ---
Subjective Subjective Date of Service: 01/25/25 Interval History: No new complaints today. Reports word-finding difficulty is persistent, and has not significantly improved. She denies any new hemiplegia, hemiparesis, dysphonia, slurred speech or otherwise. Denies headaches. Echocardiography from 01/24 revealed severe mitral stenosis with possible calcific mass. Cardiology evaluation recommending outpatient transesophageal echocardiography for further evaluation. Recommending continuation of warfarin, with INR goal 2-3. Review of Systems Review of Systems: Yes all other systems are reviewed and are negative Physical Exam 2 Exam: Exam: General: A&O x3, oriented to time place person and situation, comfortable, no pain Cardiac: S1, S2 auscultated with no S3/4. Well perfused. Click of mechanical AVR auscultated in precordium, as well as grade 3 systolic ejection murmur auscultated in mitral region. No carotid radiation. Respiratory: Normal breath sounds auscultated throughout all lung zones, without wheezing, rales. Normal rate. GI/ : No abdominal pain on palpation, no masses or distentions. MSK: Normal ambulation without pain at bony prominences or musculature Neurological: Normal neurological examination on overview, without obvious CN II-XII abnormalities. Strength, sensation unchanged. Expressive aphasia with word-finding difficulty noted. No receptive aphasia. Vital Signs: Vital Signs: Last Vital Signs Temp 97.9 F 01/25/25 11:16 Pulse 81 01/25/25 11:16 Resp 20 01/25/25 11:16 BP 153/67 H 01/25/25 11:16 Pulse Ox 98 01/25/25 11:16 O2 Del Method Room Air 01/25/25 11:16 BMI result Body Mass Index 31.9 Objective Data Active Medications Acetaminophen (Acetaminophen 325 Mg Tablet) 975 mg PO Q6H PRN PRN Reason: Pain, Mild 1-3,fever,headache Last Admin: 01/24/25 21:21 Dose: 975 mg Documented By: ROSA ISELA Amlodipine Besylate (Amlodipine Besylate 5 Mg Tablet) 5 mg PO DAILY [facility]; Protocol Last Admin: 01/25/25 08:00 Dose: 5 mg Documented By: ASHLEY Aspirin (Aspirin 81 Mg Tab.Chew) 81 mg PO DAILY [facility] Last Admin: 01/25/25 08:00 Dose: 81 mg Documented By: ASHLEY Atorvastatin Calcium (Atorvastatin Calcium 80 Mg Tablet) 80 mg PO DAILY [facility] Last Admin: 01/25/25 08:00 Dose: 80 mg Documented By: ASHLEY Calcium Carbonate (Calcium Carbonate 750 Mg Tab.Chew) 750 mg PO Q4H PRN PRN Reason: Heartburn Dextrose (Dextrose 50 % 25 Gm/50 Ml Syringe) 25 gm IVPUSH Q15M PRN; Protocol PRN Reason: per Hypoglycemia Standing Ord. Empagliflozin (Empagliflozin 10 Mg Tablet) 10 mg PO DAILY [facility] Last Admin: 01/25/25 08:00 Dose: 10 mg Documented By: ASHLEY Furosemide (Furosemide 20 Mg Tablet) 20 mg PO DAILY [facility]; Protocol Last Admin: 01/25/25 08:00 Dose: 20 mg Documented By: ASHLEY Glucose (Glucose Gel 15 Gm Gel..Gram.) 15 gm PO Q15M PRN; Protocol PRN Reason: per Hypoglycemia Standing Ord. Insulin Glargine (Insulin Glargine,Hum.Rec.Anlog 100 Unit/Ml 10 Ml Vial) 21 unit SUBCUT DAILY [facility] Last Admin: 01/25/25 07:59 Dose: 21 unit Documented By: ASHLEY Insulin Human Lispro (Insulin Lispro 100 Unit/Ml 3 Ml Vial) 0 unit SUBCUT QIDACHS [facility]; Protocol Last Admin: 01/25/25 11:13 Dose: 4 unit Documented By: ASHLEY Magnesium Hydroxide (Milk Of Magnesia 30 Ml Oral.Susp) 30 ml PO DAILY PRN PRN Reason: Constipation Melatonin (Melatonin 3 Mg Tablet) 6 mg PO BEDTIME PRN PRN Reason: Insomnia Metoprolol Tartrate (Metoprolol Tartrate 50 Mg Tablet) 50 mg PO BID [facility]; Protocol Last Admin: 01/25/25 08:00 Dose: 50 mg Documented By: ASHLEY Omeprazole (Omeprazole 20 Mg Capsule.Dr) 20 mg PO DAILY@0630 [facility] Last Admin: 01/25/25 05:55 Dose: 20 mg Documented By: ROSA ISELA Ondansetron HCl (Ondansetron Hcl 4 Mg/2 Ml Vial) 4 mg IVPUSH Q8H PRN PRN Reason: Nausea and Vomiting Oxycodone HCl (Oxycodone Hcl Immed Release 5 Mg Tablet) 5 mg PO Q6H PRN PRN Reason: Pain, Severe (Pain Scale 7-10) Sodium Chloride (0.9 % Sodium Chloride Flush 3 Ml Syringe) 3 ml IVFLUSH QSHIFT JUANITA Last Admin: 01/25/25 08:00 Dose: 3 ml Documented By: ASHLEY Tramadol HCl (Tramadol Hcl 50 Mg Tablet) 50 mg PO Q6H PRN PRN Reason: Pain, Moderate(Pain Scale 4-6) Last Admin: 01/25/25 08:05 Dose: 50 mg Documented By: ASHLEY Valsartan (Valsartan 160 Mg Tablet) 160 mg PO DAILY@0900 [facility]; Protocol Last Admin: 01/25/25 08:00 Dose: 160 mg Documented By: ASHLEY Warfarin Sodium (Warfarin Sodium 7.5 Mg Tablet) 7.5 mg PO TUTH@1800 JUANITA Warfarin Sodium (Warfarin Sodium 5 Mg Tablet) 5 mg PO SUMOWEFRSA@1800 JUANITA Last Admin: 01/24/25 17:42 Dose: 5 mg Documented By: ASHLEY Labs 01/24/25 07:27 01/24/25 07:27 Labs: Laboratory Results - last 24 hr 01/24/25 01/24/25 01/25/25 17:39 20:03 07:28 PT INR POC Glucose 144 H 114 120 H 01/25/25 01/25/25 07:44 11:09 PT 28.3 H INR 2.5 H POC Glucose 224 H Assessment and Plan (1) Hypertension: Status: Acute (2) History of mechanical aortic valve replacement: Status: Acute (3) Anticoagulated on warfarin: Status: Acute (4) Acute CVA (cerebrovascular accident): Status: Acute (5) Cerebral infarct: Status: Acute Plan 79-year-old female with a past medical history significant for hypertension, diabetes, hyperlipidemia, HFpEF and mechanical aortic valve replacement on warfarin, who presented to the ED again due to weakness for the past few weeks with associated right lower extremity weakness, dizziness and gait instability. Acute CVA - left central semiovale - left-sided watershed infarct acute-subacute - right medial frontal lobe Presented with right lower extremity weakness, aphasia Head CT with acute infarction left centrum semiovale, recommend MRI CTA head/neck with dilated ascending aorta measuring 4.4 cm MRI head showed acute to subacute left-sided watershed infarct and additional infarct in medial right frontal region; also showed innumerable multifocal microhemorrhages ECHO 01/24 revealing abnormal mechanical AVR, severe mitral stenosis with possible mobile calcific mass PLAN - outpatient transesophageal echocardiography as per Cardiology - passed bedside swallow - continue high-intensity statin - monitor on telemetry - PT/OT/speech - no aspirin, continue Coumadin as per Neurology - Neurology following - discharge to short-term rehab Mechanical AVR dysfunction Severe mitral stenosis; possible mobile calcific mass - outpatient transesophageal ECHO - follow up outpatient Cardiology Suprtherapeutic INR - INR has been supratherapeutic through most of stay; goal 2-3 - had warfarin at 2.5mg x2 days; resume normal dosing depending on INR - check PT/INR daily BELEN, resovled - cr 1.42-->1.06 after IVF in ED - avoid nephrotoxins when possible - monitor BMP ?UTI - UA equivocal - no leukocytosis, vitals stable, no sepsis - urine culture negative, empiric ceftriaxone d/c'd Anemia, microcytic - stable, at baseline HTN - home meds held x24 hours for permissive HT - continue amlodipine, metoprolol, losartan DM - sliding scale insulin, Lantus - diabetic diet HLD - increased statin chronic HFpEF - no acute exacerbation - continue metoprolol and furosemide full code VTE prophy: warfarin Total time managing care of this patient today: 35 minutes. Quality Stroke Does the patient have a stroke diagnosis?: Yes Reason for No Anti-thrombotic by Day Two: N/A - Med Ordered (Pt on warfarin; no aspirin as per neurology) VTE Prior VTE?: No VTE Risk Level:: Medical - moderate - high VTE Device Contraindication: Treatment Not Indicated VTE Drug Contraindication: N/A - Med Ordered
[2025-01-25 15:31] LABS: Glucose, Whole Blood 149 mg/dL (60-115)
--- NOTE | 2025-01-25 18:33 | MHC.SL.SOA ---
Referring Provider: Stefany Yeboah Reason for Referral: CVA Date of Plan of Treatment:01/22/25 Onset of Symptoms/Illness:01/22/25 Date Treatment Started:01/24/25 Medical Diagnosis:(1) Acute CVA (cerebrovascular accident): Status: Acute Primary Speech Language Diagnosis:R47.01 Aphasia Secondary Speech Language Diagnosis: Number of Authorized Visits Remaining: Authorization End Date: Reason for Visit:31156 Individual Treatment Other: Subjective:Patient was awake and alert and cooperative with this ongoing assessment of language function. An online healthcare interpreter was used throughout the session to translate Brazilian. It became evident that patient requires glasses to look at any drawing, and demonstrated visual confusion when glasses were not present. Patient also evidenced some understanding of Guamanian and at times responded in Guamanian. Objective: Patient completed short form of the BDAE and the BNT directly translated into Brazilian. Assessment:On the short form of the Harrison Naming Test: Patient readily identifed 7/15 items presented. On 5 of her responses, word retrieved may have been due to visual confusion (patient did not have glasses on) providing near words, but inaccurate (e.g. horse for unicorn ). Patient responded I don't know when shown picture of a Sphynx and a tripod with these words likely not in her vocabulary. On the Harrison Diagnostic Test of Aphasia: Expressive language. ON the Cookie Theft narrative prompt, Patient initially responded with very confusing information, e.g. misperceived the cabinet with the cookie jar as a window. However when glasses were retrieved and put on, patient then readily and accurately identified the characters, actions and errors in the picture, with fluent speech. Patient responded to confrontation naming questions with 100% accuracy. Patient responded to automatic sequences with 100% accuracy. On receptive language tasks, patient accurately Identified all pictures labelled and y/n ideational material. 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 She demonstrated generally good skills with receptive language, within functional limits. It continues to be recommended that patient have follow up Speech/language therapy at the next level of care. Seen by: Graduate/Clinical Fellow: No Supervisory Statement: f_Reg Query Last Value , [facility] Speech Language Pathologist: Rosa Maria Barroso M.A., [facility]
[2025-01-25 20:54] LABS: Glucose, Whole Blood 304 mg/dL (60-115)
[2025-01-26] VITALS (7 sets, daily range): BP systolic 108–147; BP diastolic 56–66; PULSE 68–96; RESP 16–20; TEMP 36.1–36.9; O2SAT 92–96
--- NOTE | 2025-01-26 | ECG_ITS ---
Test Reason : chest pain Blood Pressure : */* mmHG Vent. Rate : 80 BPM Atrial Rate : 80 BPM P-R Int : 232 ms QRS Dur : 172 ms QT Int : 464 ms P-R-T Axes : 72 12 140 degrees QTcB Int : 535 ms Sinus rhythm with sinus arrhythmia with 1st degree A-V block Left bundle branch block Abnormal ECG When compared with ECG of 25-Jan-2025 08:15, Premature supraventricular complexes are no longer Present Referred By: Shi Ugarte Electronically Signed By: Bacilio Ahumada
[2025-01-26 07:32] LABS: INTERNATIONAL NORM RATIO 2.7 (0.9-1.1); Prothrombin Time 31.1 SEC (10.9-12.4)
[2025-01-26 07:35] LABS: Glucose, Whole Blood 156 mg/dL (60-115)
[2025-01-26] MEDS: 0.9 % Sodium Chloride Flush 3 ML SYRINGE IVFLUSH ×3 (08:11→21:09)
[2025-01-26] MEDS: Insulin Glargine,Hum.rec.anlog 100 UNIT/ML 10 ML VIAL 21 UNIT SUBCUT (08:12)
[2025-01-26 11:03] LABS: Glucose, Whole Blood 256 mg/dL (60-115)
[2025-01-26 12:53] LABS: Hematocrit 32.3 % (37.0-47.0); Hemoglobin 9.8 g/dl (12.0-16.0); Imm Gran Abs Auto 0.09 X10*3/uL (0.00-0.03); Imm Gran Pct Auto 0.5 % (0.0-0.4); Lymphocytes Absolute Auto 1.4 X10*3/uL (1.2-4.9); MANUAL DIFF FLAG SCAN; Mean Corpuscular HGB Conc 30.3 g/dl (31.0-35.0); Mean Corpuscular Hemoglobin 23.3 pg (27.0-33.0); Mean Corpuscular Volume 76.9 fL (80.0-98.0); NRBC Abs Auto 0.000 X10*3/uL (0.0-0.012); NRBC Pct Auto 0.0 /100WBC (0.0-0.2); Platelet Count 312 X10*3/uL (160-400); Red Blood Count 4.20 X10*6/uL (4.20-5.50); SCAN SMEAR FLAG 1; White Blood Count 17.2 X10*3/uL (4.8-10.8)
[2025-01-26 13:08] LABS: Alanine Aminotransferase 22 U/L (0-31); Albumin Level 4.2 g/dL (3.5-5.0); Alkaline Phosphatase 116 U/L (39-117); Anion Gap 14 (12-20); Aspartate Amino Transferase 25 U/L (5-31); Blood Urea Nitrogen 27 mg/dL (9-16); Calcium 9.2 mg/dL (8.4-10.2); Carbon Dioxide 26 mmol/L (22-29); Chloride 99 mmol/L (96-108); Creatinine Clr Calc Pharmacy 31.6; Estimated Glomerular Filt Rate 38; Potassium 4.5 mmol/L (3.3-5.1); Sodium 134 mmol/L (135-145); Total Protein 7.2 g/dL (6.5-8.0)
--- NOTE | 2025-01-26 13:25 | MHC.STROKE ---
Notified by hospitalist of increased weakness which was reported by nurse. When speaking with nurse, progressive weakness this morning. Pt was able to ambulate to bathroom but difficulty walking back. Nurse also noted increased right arm weakness this afternoon. Speaking/swallowing without difficulty. CT ordered by hospitalist. Pt to CT scan with primary RN and special services coordinator. Dr. Vasquez notified. RN also noted WBC elevated. Pt updated on plan. All questions answered. Will continue to assist as needed
--- NOTE | 2025-01-26 15:17 | P.PNIM_ITS ---
Subjective Subjective Date of Service: 01/26/25 Interval History: She feels weaker than yesterday. Endorses some dizziness and fatigability. Endorsing some worsening right-sided upper extremity and lower extremity weakness. She denies chest pain, palpitations, diaphoresis. She denies new cough or phlegm production. She denies any abdominal pain or discomfort, dysuria. No flank pain. No new rashes. CT head without IV contrast conducted, revealing mild acute to subacute nonhemorrhagic strokes and SHILPI territory, with evidence of prior vascular insult and right superior cerebellar artery territory. No acute changes noted. No acute intracranial hemorrhage noted. Blood work performed, revealing new leukocytosis of 17.2. Also revealing new creatinine 1.3, baseline 0.9. Review of Systems Review of Systems: Yes all other systems are reviewed and are negative Physical Exam 2 Exam: Exam: General: A&O x3, oriented to time place person and situation, comfortable, no pain Cardiac: S1, S2 auscultated with no S3/4, no MRG. Well perfused. Respiratory: Normal breath sounds auscultated throughout all lung zones, without wheezing, rales. Normal rate. GI/ : No abdominal pain on palpation, no masses or distentions. MSK: Normal ambulation without pain at bony prominences or musculature Neurological: - Strength: 5/5 left upper and lower ex tremity, 4+/5 right upper and lower extremity. - sensation normal throughout - tone normal throughout - reflexes normal throughout - cranial nerves unremarkable - persistent expressive aphasia and word -finding difficulty noted, no element of receptive aphasia Vital Signs: Vital Signs: Last Vital Signs Temp 97.1 F 01/26/25 11:11 Pulse 79 01/26/25 12:20 Resp 20 01/26/25 11:11 BP 109/56 L 01/26/25 12:20 Pulse Ox 94 01/26/25 11:11 O2 Del Method Room Air 01/26/25 11:11 BMI result Body Mass Index 31.9 Objective Data Active Medications Acetaminophen (Acetaminophen 325 Mg Tablet) 975 mg PO Q6H PRN PRN Reason: Pain, Mild 1-3,fever,headache Last Admin: 01/24/25 21:21 Dose: 975 mg Documented By: ROSA ISELA Amlodipine Besylate (Amlodipine Besylate 5 Mg Tablet) 5 mg PO DAILY [facility]; Protocol Last Admin: 01/26/25 08:08 Dose: 5 mg Documented By: SIENNA Aspirin (Aspirin 81 Mg Tab.Chew) 81 mg PO DAILY [facility] Last Admin: 01/26/25 08:08 Dose: 81 mg Documented By: SIENNA Atorvastatin Calcium (Atorvastatin Calcium 80 Mg Tablet) 80 mg PO DAILY [facility] Last Admin: 01/26/25 08:08 Dose: 80 mg Documented By: SIENNA Calcium Carbonate (Calcium Carbonate 750 Mg Tab.Chew) 750 mg PO Q4H PRN PRN Reason: Heartburn Dextrose (Dextrose 50 % 25 Gm/50 Ml Syringe) 25 gm IVPUSH Q15M PRN; Protocol PRN Reason: per Hypoglycemia Standing Ord. Empagliflozin (Empagliflozin 10 Mg Tablet) 10 mg PO DAILY [facility] Last Admin: 01/26/25 08:08 Dose: 10 mg Documented By: SIENNA Furosemide (Furosemide 20 Mg Tablet) 20 mg PO DAILY [facility]; Protocol Last Admin: 01/26/25 08:08 Dose: 20 mg Documented By: SIENNA Glucose (Glucose Gel 15 Gm Gel..Gram.) 15 gm PO Q15M PRN; Protocol PRN Reason: per Hypoglycemia Standing Ord. Insulin Glargine (Insulin Glargine,Hum.Rec.Anlog 100 Unit/Ml 10 Ml Vial) 21 unit SUBCUT DAILY [facility] Last Admin: 01/26/25 08:12 Dose: 21 unit Documented By: SIENNA Insulin Human Lispro (Insulin Lispro 100 Unit/Ml 3 Ml Vial) 0 unit SUBCUT QIDACHS [facility]; Protocol Last Admin: 01/26/25 12:10 Dose: 6 unit Documented By: SIENNA Magnesium Hydroxide (Milk Of Magnesia 30 Ml Oral.Susp) 30 ml PO DAILY PRN PRN Reason: Constipation Melatonin (Melatonin 3 Mg Tablet) 6 mg PO BEDTIME PRN PRN Reason: Insomnia Metoprolol Tartrate (Metoprolol Tartrate 50 Mg Tablet) 50 mg PO BID [facility]; Protocol Last Admin: 01/26/25 08:08 Dose: 50 mg Documented By: SIENNA Omeprazole (Omeprazole 20 Mg Capsule.Dr) 20 mg PO DAILY@0630 [facility] Last Admin: 01/26/25 06:15 Dose: 20 mg Documented By: GAGAN Ondansetron HCl (Ondansetron Hcl 4 Mg/2 Ml Vial) 4 mg IVPUSH Q8H PRN PRN Reason: Nausea and Vomiting Oxycodone HCl (Oxycodone Hcl Immed Release 5 Mg Tablet) 5 mg PO Q6H PRN PRN Reason: Pain, Severe (Pain Scale 7-10) Sodium Chloride (0.9 % Sodium Chloride Flush 3 Ml Syringe) 3 ml IVFLUSH QSHIFT [facility] Last Admin: 01/26/25 08:11 Dose: 3 ml Documented By: SIENNA Tramadol HCl (Tramadol Hcl 50 Mg Tablet) 50 mg PO Q6H PRN PRN Reason: Pain, Moderate(Pain Scale 4-6) Last Admin: 01/26/25 08:08 Dose: 50 mg Documented By: SIENNA Valsartan (Valsartan 160 Mg Tablet) 160 mg PO DAILY@0900 [facility]; Protocol Last Admin: 01/26/25 08:08 Dose: 160 mg Documented By: SIENNA Warfarin Sodium (Warfarin Sodium 7.5 Mg Tablet) 7.5 mg PO TUTH@1800 [facility] Last Admin: 01/25/25 18:38 Dose: 7.5 mg Documented By: ASHLEY Warfarin Sodium (Warfarin Sodium 5 Mg Tablet) 5 mg PO SUMOWEFRSA@1800 [facility] Last Admin: 01/24/25 17:42 Dose: 5 mg Documented By: ASHLEY Labs 01/26/25 12:41 01/26/25 12:41 Labs: Laboratory Results - last 24 hr 01/25/25 01/25/25 01/26/25 15:28 20:43 06:19 MCV MCH MCHC RDW Plt Count MPV Immature Gran % (Auto) Neut % (Auto) Lymph % (Auto) [place] % (Auto) Eos % (Auto) Baso % (Auto) Lymph # (Auto) [place] # (Auto) Eos # (Auto) Baso # (Auto) Abs Immat Gran (auto) Absolute Neuts (auto) Absolute Nucleated RBC Nucleated RBC % (auto) Smear Tech's Comments Hold Purple Top SEE NOTE PT 31.1 H INR 2.7 H Anion Gap Estim Creat Clear Calc Estimated GFR POC Glucose 149 H 304 H Random Glucose Calcium Total Bilirubin AST ALT Alkaline Phosphatase Total Protein Albumin 01/26/25 01/26/25 01/26/25 07:32 11:00 12:41 MCV 76.9 L MCH 23.3 L MCHC 30.3 L RDW 15.9 Plt Count 312 MPV 9.6 Immature Gran % (Auto) 0.5 H Neut % (Auto) 81.3 H Lymph % (Auto) 8.2 L [place] % (Auto) 9.5 Eos % (Auto) 0.1 Baso % (Auto) 0.4 Lymph # (Auto) 1.4 [place] # (Auto) 1.6 H Eos # (Auto) 0.0 Baso # (Auto) 0.1 Abs Immat Gran (auto) 0.09 H Absolute Neuts (auto) 14.0 H Absolute Nucleated RBC 0.000 Nucleated RBC % (auto) 0.0 Smear Tech's Comments VERIFIED Hold Purple Top PT INR Anion Gap 14 Estim Creat Clear Calc 31.6 Estimated GFR 38 POC Glucose 156 H 256 H Random Glucose 242 H Calcium 9.2 Total Bilirubin 0.6 AST 25 ALT 22 Alkaline Phosphatase 116 Total Protein 7.2 Albumin 4.2 Imaging Chest x-ray: Attestation: I personally reviewed and interpreted this imaging study as follows: My impression: Left lung base opacification, without evidence of blunting costophrenic angle or Jazmine B lines. Prior sternotomy wires noted. Radiologist's impression: Impressions Head CT 01/26/25 12:12 IMPRESSION: No acute intracranial hemorrhage. Evolving acute to subacute nonhemorrhagic strokes in the SHILPI territories. Prior vascular insult, right superior cerebellar artery territory. Electronically signed by: Mg Morgan MD 01/26/2025 01:36 PM EDT RP Chest X-Ray 01/26/25 14:32 IMPRESSION: Stable patchy opacity in the left lung base likely represents atelectasis but pneumonia is not ruled out. Electronically signed by: Frank Pichardo MD 01/26/2025 02:53 PM EDT RP Assessment and Plan (1) Hypertension: Status: Acute (2) History of mechanical aortic valve replacement: Status: Acute (3) Anticoagulated on warfarin: Status: Acute (4) Acute kidney injury: Status: Acute (5) Right leg weakness: Status: Acute (6) Cerebral infarct: Status: Acute (7) Acute CVA (cerebrovascular accident): Status: Acute Plan 79-year-old female with a past medical history significant for hypertension, diabetes, hyperlipidemia, HFpEF and mechanical aortic valve replacement on warfarin, who presented to the ED again due to weakness for the past few weeks with associated right lower extremity weakness, dizziness and gait instability, admitted with acute CVA left central [place]ov[place] with watershed infarct & Leukocytosis Possible sepsis Noting elevated white cell count of 17.2; neutrophilic shift. Patient is describing fatigability; no focal infective nidus based on symptoms. Chest x-ray revealing left lower lobe opacification - possible source Urinalysis PLAN - urinalysis - blood culture if pyrexia - lactic acid - 500 cc LR bolus Acute CVA - left central [place]ovale - left-sided watershed infarct acute-subacute - right medial frontal lobe Presented with right lower extremity weakness, aphasia Head CT with acute infarction left centrum semiovale, recommend MRI CTA head/neck with dilated ascending aorta measuring 4.4 cm MRI head showed acute to subacute left-sided watershed infarct and additional infarct in medial right frontal region; also showed innumerable multifocal microhemorrhages ECHO 01/24 revealing abnormal mechanical AVR, severe mitral stenosis with possible mobile calcific mass. Patient has right-sided weakness in the setting of new leukocytosis and relative hypotension possibly 2/2 post stroke recrudescence (?Possibly developing sepsis) PLAN - outpatient transesophageal echocardiography as per Cardiology - passed bedside swallow - continue high-intensity statin - monitor on telemetry - PT/OT/speech - no aspirin, continue Coumadin as per Neurology - Neurology following - discharge to short-term rehab - HOLD ANTIHYPERTENSIVES Mechanical AVR dysfunction Severe mitral stenosis; possible mobile calcific mass - outpatient transesophageal ECHO - follow up outpatient Cardiology Suprtherapeutic INR - INR has been supratherapeutic through most of stay; goal 2-3 - had warfarin at 2.5mg x2 days; resume normal dosing depending on INR - check PT/INR daily BELEN - cr 1.42-->1.06 after IVF in ED - RECURRENT WORSENING OF CREATININE FROM 0.9-1.3 - avoid nephrotoxins when possible - monitor BMP ?UTI - UA equivocal - no leukocytosis, vitals stable, no sepsis - urine culture negative, empiric ceftriaxone d/c'd Anemia, microcytic - stable, at baseline HTN - HOLD ANTIHYPERTENSIVES - continue amlodipine, metoprolol, losartan DM - sliding scale insulin, Lantus - diabetic diet HLD - increased statin chronic HFpEF - no acute exacerbation - continue metoprolol and furosemide QUALITY METRICS - VTE: WARFARIN INR 2-3 - CODE STATUS: FULL CODE - DIET: DIABETIC Total time managing care of this patient today: 60 minutes. Quality Stroke Does the patient have a stroke diagnosis?: Yes Reason for No Anti-thrombotic by Day Two: N/A - Med Ordered (Pt on warfarin; no aspirin as per neurology) VTE Prior VTE?: No VTE Risk Level:: Medical - moderate - high VTE Device Contraindication: Treatment Not Indicated VTE Drug Contraindication: N/A - Med Ordered
--- NOTE | 2025-01-26 15:30 | MHC.SLORD ---
Speech Language Pathology Order Status: Pt not seen for aphasia tx today, pt resting comfortably this afternoon. COMPUTER SYSTEMS MANAGER tx indicated at next setting.
[2025-01-26] MEDS: Lactated Ringers 500 ML 999 ML IV (15:58)
[2025-01-26 16:03] LABS: Procalcitonin 0.08 ng/mL
[2025-01-26 16:31] LABS: Glucose, Whole Blood 188 mg/dL (60-115)
--- NOTE | 2025-01-26 16:31 | PM.NEUROCN ---
History of Present Illness Data of Consult Service Date: 01/26/25 Primary Care Provider: Paco Schuler MD HPI Reason for consult: Weakness 79 years old woman who I recently saw and who suffered from bilateral watershed area ischemic infarct with underlying mechanical aortic valve. Her INR was low when that happened. She was still in hospital and I was asked to see her as she was found to be weak or lethargic. When I saw her she was coming out of sleep and stated that she was sleepy. There was no evidence of focal weakness. A CAT scan of brain was performed that did not reveal any new problem. Review of Systems Review of Systems: No cough or flu-like illness PMFSH Past Medical History Medical History Angiectasia AVM (arteriovenous malformation) of colon On warfarin therapy Anemia Breast cancer Diabetes Anticoagulated on Coumadin Hypertension Surgical History Surgical History Status post ablation of incompetent vein using laser Heart valve replaced Social History Social History Household Members: Spouse and Children Housing: House Are you a primary day care attendant to a significant other at home: No Do you presently have visiting nurse or other home services: No Unable to assess alcohol history related to: Unknown Alcohol intake: never Patient Tobacco Use Status: Never used Tobacco Advance Directives Date on File: 07/16/24 service: No Meds Allergies Allergy/AdvReac Type Severity Reaction Status Date / Time No Known Allergies Allergy Verified 01/21/25 19:11 Active Medications: Current Medications Acetaminophen (Acetaminophen 325 Mg Tablet) 975 mg PO Q6H PRN PRN Reason: Pain, Mild 1-3,fever,headache Last Admin: 01/24/25 21:21 Dose: 975 mg Amlodipine Besylate (Amlodipine Besylate 5 Mg Tablet) 5 mg PO DAILY [facility]; Protocol On Hold: 01/26/25 15:42 Last Admin: 01/26/25 08:08 Dose: 5 mg Aspirin (Aspirin 81 Mg Tab.Chew) 81 mg PO DAILY [facility] Last Admin: 01/26/25 08:08 Dose: 81 mg Atorvastatin Calcium (Atorvastatin Calcium 80 Mg Tablet) 80 mg PO DAILY [facility] Last Admin: 01/26/25 08:08 Dose: 80 mg Calcium Carbonate (Calcium Carbonate 750 Mg Tab.Chew) 750 mg PO Q4H PRN PRN Reason: Heartburn Dextrose (Dextrose 50 % 25 Gm/50 Ml Syringe) 25 gm IVPUSH Q15M PRN; Protocol PRN Reason: per Hypoglycemia Standing Ord. Empagliflozin (Empagliflozin 10 Mg Tablet) 10 mg PO DAILY [facility] Last Admin: 01/26/25 08:08 Dose: 10 mg Furosemide (Furosemide 20 Mg Tablet) 20 mg PO DAILY [facility]; Protocol Last Admin: 01/26/25 08:08 Dose: 20 mg Glucose (Glucose Gel 15 Gm Gel..Gram.) 15 gm PO Q15M PRN; Protocol PRN Reason: per Hypoglycemia Standing Ord. Insulin Glargine (Insulin Glargine,Hum.Rec.Anlog 100 Unit/Ml 10 Ml Vial) 21 unit SUBCUT DAILY [facility] Last Admin: 01/26/25 08:12 Dose: 21 unit Insulin Human Lispro (Insulin Lispro 100 Unit/Ml 3 Ml Vial) 0 unit SUBCUT QIDACHS [facility]; Protocol Last Admin: 01/26/25 12:10 Dose: 6 unit Magnesium Hydroxide (Milk Of Magnesia 30 Ml Oral.Susp) 30 ml PO DAILY PRN PRN Reason: Constipation Melatonin (Melatonin 3 Mg Tablet) 6 mg PO BEDTIME PRN PRN Reason: Insomnia Metoprolol Tartrate (Metoprolol Tartrate 50 Mg Tablet) 50 mg PO BID [facility]; Protocol Last Admin: 01/26/25 08:08 Dose: 50 mg Omeprazole (Omeprazole 20 Mg Capsule.Dr) 20 mg PO DAILY@0630 [facility] Last Admin: 01/26/25 06:15 Dose: 20 mg Ondansetron HCl (Ondansetron Hcl 4 Mg/2 Ml Vial) 4 mg IVPUSH Q8H PRN PRN Reason: Nausea and Vomiting Oxycodone HCl (Oxycodone Hcl Immed Release 5 Mg Tablet) 5 mg PO Q6H PRN PRN Reason: Pain, Severe (Pain Scale 7-10) Sodium Chloride (0.9 % Sodium Chloride Flush 3 Ml Syringe) 3 ml IVFLUSH QSHIFT [facility] Last Admin: 01/26/25 15:58 Dose: 3 ml Tramadol HCl (Tramadol Hcl 50 Mg Tablet) 50 mg PO Q6H PRN PRN Reason: Pain, Moderate(Pain Scale 4-6) Last Admin: 01/26/25 08:08 Dose: 50 mg Valsartan (Valsartan 160 Mg Tablet) 160 mg PO DAILY@0900 [facility]; Protocol On Hold: 01/26/25 15:42 Last Admin: 01/26/25 08:08 Dose: 160 mg Warfarin Sodium (Warfarin Sodium 7.5 Mg Tablet) 7.5 mg PO TUTH@1800 [facility] Last Admin: 01/25/25 18:38 Dose: 7.5 mg Warfarin Sodium (Warfarin Sodium 5 Mg Tablet) 5 mg PO SUMOWEFRSA@1800 [facility] Last Admin: 01/24/25 17:42 Dose: 5 mg Home Medications ?Medication ?Instructions ?Recorded ?Confirmed ?Last Taken ?Type atorvastatin 40 mg tablet 40 mg PO DAILY@89906/12/24 01/22/25 01/21/25 History insulin glargine 100 unit/mL (3 30 unit subcut DAILY@89906/12/24 01/22/25 01/21/25 History mL) subcutaneous pen (Lantus Solostar U-100 Insulin) metformin 850 mg tablet 850 mg PO DAILY@2100 06/12/24 01/22/25 01/21/25 History metoprolol tartrate 50 mg tablet 50 mg PO BID 06/12/24 01/22/25 01/21/25 History valsartan 160 mg tablet 160 mg PO DAILY@89906/12/24 01/22/25 01/21/25 History warfarin 5 mg tablet 7.5 mg PO TUTH@1800 06/12/24 01/22/25 01/20/25 History pantoprazole 40 mg tablet,delayed 40 mg PO DAILY@62907/16/24 01/22/25 01/21/25 History release warfarin 5 mg tablet 5 mg PO SUMOWEFRSA@1800 07/16/24 01/22/25 01/21/25 History estradiol 0.01% (0.1 mg/gram) 1 appl vaginal MOWEFR 10/19/24 01/22/25 01/21/25 History vaginal cream furosemide 20 mg tablet 20 mg PO DAILY 10/31/24 01/22/25 01/21/25 History Physical Exam Vital Signs: Vital Signs: Last Vital Signs Temp 97.4 F 01/26/25 16:00 Pulse 68 01/26/25 16:00 Resp 18 01/26/25 16:00 BP 131/60 01/26/25 16:00 Pulse Ox 96 01/26/25 16:00 O2 Del Method Room Air 01/26/25 16:00 BMI result Body Mass Index 31.9 Neuro: Other: She is alert and awake with normal spontaneity of speech fluency comprehension and sleepy affect. Face is symmetrical. Visual doss are full. There was no focal arm or leg weakness. Speech is normal Results Labs 01/26/25 12:41 01/26/25 12:41 Labs: Short CBC 01/26/25 Range/Units 12:41 WBC 17.2 H (4.8-10.8) X10*3/uL Hgb 9.8 L (12.0-16.0) g/dl Hct 32.3 L (37.0-47.0) % Plt Count 312 (160-400) X10*3/uL BMP 01/26/25 12:41 Sodium 134 L Potassium 4.5 Chloride 99 Carbon Dioxide 26 BUN 27 H Creatinine 1.35 Calcium 9.2 Liver Function 01/26/25 Range/Units 12:41 Total Bilirubin 0.6 (0.0-1.0) mg/dL AST 25 (5-31) U/L ALT 22 (0-31) U/L Alkaline Phosphatase 116 (39-117) U/L Albumin 4.2 (3.5-5.0) g/dL Head CT revealed left anterior cerebral artery area hypodensity. Microbiology Microbiology Results: Microbiology 01/21/25 23:39 Blood - Venous Blood Culture - Preliminary No growth after 48 hours. 01/21/25 23:39 Blood - Venous Blood Culture - Preliminary No growth after 48 hours. 01/21/25 Unknown Urine clean catch - Clean Catch Midstream Urine Culture - Final Assessment and Plan (1) Encephalopathy: Qualifiers: Encephalopathy type: unspecified encephalopathy Qualified Code(s): G93.40 - Encephalopathy, unspecified Status: Acute Unclear etiology of weakness or lethargy seen before. Her examination now as nonfocal. One can not completely rule out possibility of more stroke and a CAT scan of brain was not enough to figure that out. An MRI without contrast was better test. This could also be nonspecific symptom for lack of sleep in hospital setting. At the same time infection is another possibility. Depending her overall clinical situation further investigations can be considered. Otherwise, my recommendation is to expedite her discharge to rehab or home. Procedures Date of Service Date of Service: 01/26/25
--- NOTE | 2025-01-26 16:44 | PC.NURSE ---
Pt noted to have slight more weakness to RLE this am. OOB to bathroom initially able to ambulate to bathroom but difficulty ambulated back to bed. Inital am assessment RLE with drift. Dr Crocker aware will continue to monitor. 1200 pt up in chair eating lunch noted to have some difficulty now with RUE mild ataxia and weakness not noted in am. Pt states feeling more weak. RLE now unable to lift at all pt denies sensation loss. Stroke scale 5. c/o mild dizziness. BP 108 systolic. Mild right facial weakness at rest although smile symmetric tongue midline. Pupils PERRLA no visual field loss. MD notified CT, labs completed per order as well as chest xray. application coordinator on unit to see patient. HOB flat to help with perfusion just over an hour BP into 130's RUE minimal weakness at this time face symmetric. Continues with RLE unable to lift off bed although strong plantar dorsi flexion. Bolus given per order. BP meds placed on hold per MD.
[2025-01-26 20:16] LABS: Glucose, Whole Blood 243 mg/dL (60-115)
[2025-01-26 21:33] LABS: Appearance Urine Clear; Glucose Urine UA >=1000 mg/dL (Negative); PH 5.0 (5.0-9.0); Specific Gravity - Urine >= 1.030 (1.005-1.025); UMIC TRIGGER UA YES
[2025-01-27] VITALS (9 sets, daily range): BP systolic 102–145; BP diastolic 52–73; PULSE 66–92; RESP 16–20; TEMP 36–37.1; O2SAT 94–97
[2025-01-27 03:08] LABS: Troponin-I High Sensitivity 21.0 ng/L (<3.5-17.0)
[2025-01-27 06:54] LABS: MANUAL DIFF FLAG NO
[2025-01-27 07:07] LABS: Hematocrit 29.2 % (37.0-47.0); Hemoglobin 9.0 g/dl (12.0-16.0); Imm Gran Abs Auto 0.04 X10*3/uL (0.00-0.03); Imm Gran Pct Auto 0.4 % (0.0-0.4); Lymphocytes Absolute Auto 1.4 X10*3/uL (1.2-4.9); Mean Corpuscular HGB Conc 30.8 g/dl (31.0-35.0); Mean Corpuscular Hemoglobin 23.1 pg (27.0-33.0); Mean Corpuscular Volume 75.1 fL (80.0-98.0); NRBC Abs Auto 0.000 X10*3/uL (0.0-0.012); NRBC Pct Auto 0.0 /100WBC (0.0-0.2); Platelet Count 265 X10*3/uL (160-400); Red Blood Count 3.89 X10*6/uL (4.20-5.50); White Blood Count 11.1 X10*3/uL (4.8-10.8)
[2025-01-27 07:11] LABS: INTERNATIONAL NORM RATIO 3.5 (0.9-1.1); Prothrombin Time 40.1 SEC (10.9-12.4)
[2025-01-27 07:32] LABS: Anion Gap 14 (12-20); Blood Urea Nitrogen 22 mg/dL (9-16); Calcium 9.0 mg/dL (8.4-10.2); Carbon Dioxide 25 mmol/L (22-29); Chloride 104 mmol/L (96-108); Creatinine Clr Calc Pharmacy 49.0; Estimated Glomerular Filt Rate > 60; Potassium 3.7 mmol/L (3.3-5.1); Sodium 139 mmol/L (135-145)
[2025-01-27 07:38] LABS: Glucose, Whole Blood 149 mg/dL (60-115)
[2025-01-27] MEDS: 0.9 % Sodium Chloride Flush 3 ML SYRINGE IVFLUSH ×2 (08:14→20:27)
[2025-01-27] MEDS: Insulin Glargine,Hum.rec.anlog 100 UNIT/ML 10 ML VIAL 21 UNIT SUBCUT (08:15)
[2025-01-27 10:48] LABS: Glucose, Whole Blood 302 mg/dL (60-115)
[2025-01-27] MEDS: Lactated Ringers 500 ML 250 ML IV (10:50)
--- NOTE | 2025-01-27 11:53 | MHC.CM.PN ---
CM MET W/PT'S DIL FARRAH AT [facility] PER REQUEST, FARRAH REPORTING SHE WAS GETTING MESSAGES FROM [facility] FOR OT APPT TOMORROW, FARRAH AWARE [facility] WAS JUST UPDATED AND PLAN FOR PT TO [facility] IN[facility] ONE MORE NIGHT AND DC TOMORROW PENDING AUTH, D/T PT WANTING FAMILY TO SIGN IMM, FARRAH HAS SIGNED FOR PT. [facility] UPDATED W/TODAYS PT/OT NOTES AND MOST RECENT MD/NEURO NOTES. PER LIAISON THEY WILL NEED TO RESUBMIT FOR AUTH TOMORROW 9/5 IN AM. CM WILL CONT TO FOLLOW DC NEEDS.
--- NOTE | 2025-01-27 15:03 | PC.NURSE ---
1030 Pt reports feeling dizzy, generalized weakness noted pt reports feeling shaky. POC 302 pressure soft 102/56 while OOB to chair. Legs elevated in chair above head Dr Crocker notified LR 500 at 250 given. Repeat pressure at 1200, 120's systolic. Pt up in chair sitting upright to eat. 1240 pt reports feeling weak again after sitting up 2 assist out of chair to bed. Pt flat in bed resting MD notified. Will continue to monitor for changes
[2025-01-27 16:10] LABS: Glucose, Whole Blood 120 mg/dL (60-115)
--- NOTE | 2025-01-27 19:07 | P.PNIM_ITS ---
Subjective Subjective Date of Service: 01/27/25 Interval History: Patient feels well today. No new complaints. She is up on the wards and walking. She denies any infective nidus or symptomology including lack of cough, phlegm production, dysuria, diarrhea, abdominal pain, rashes. She denies any fevers or chills or rigors. She had an episode of moderate hypotension during the day, with fatigability associated with it, which responded to LR 500 cc bolus. Review of Systems Review of Systems: Yes all other systems are reviewed and are negative Physical Exam 2 Exam: Exam: General: A&O x3, oriented to time place person and situation, comfortable, no pain Cardiac: S1, S2 auscultated with no S3/4, no MRG. Well perfused. Respiratory: Normal breath sounds auscultated throughout all lung zones, without wheezing, rales. Normal rate. GI/ : No abdominal pain on palpation, no masses or distentions. MSK: Normal ambulation without pain at bony prominences or musculature Neurological: Normal neurological examination on overview, without obvious CN II-XII abnormalities. Vital Signs: Vital Signs: Last Vital Signs Temp 97.6 F 01/27/25 15:42 Pulse 71 01/27/25 15:42 Resp 16 01/27/25 15:42 BP 142/65 H 01/27/25 15:42 Pulse Ox 95 01/27/25 15:42 O2 Del Method Room Air 01/27/25 15:42 BMI result Body Mass Index 31.9 Objective Data Active Medications Acetaminophen (Acetaminophen 325 Mg Tablet) 975 mg PO Q6H PRN PRN Reason: Pain, Mild 1-3,fever,headache Last Admin: 01/27/25 08:15 Dose: 975 mg Documented By: SIENNA Amlodipine Besylate (Amlodipine Besylate 5 Mg Tablet) 5 mg PO DAILY [facility]; Protocol On Hold: 01/26/25 15:42 Last Admin: 01/26/25 08:08 Dose: 5 mg Documented By: SIENNA Aspirin (Aspirin 81 Mg Tab.Chew) 81 mg PO DAILY [facility] Last Admin: 01/27/25 08:09 Dose: 81 mg Documented By: SIENNA Atorvastatin Calcium (Atorvastatin Calcium 80 Mg Tablet) 80 mg PO DAILY [facility] Last Admin: 01/27/25 08:09 Dose: 80 mg Documented By: SIENNA Calcium Carbonate (Calcium Carbonate 750 Mg Tab.Chew) 750 mg PO Q4H PRN PRN Reason: Heartburn Ceftriaxone Sodium (Ceftriaxone Sodium 1 Gm Vial) 1 gm IVPUSH Q24H [facility] Last Admin: 01/26/25 21:09 Dose: 1 gm Documented By: SWATHI Dextrose (Dextrose 50 % 25 Gm/50 Ml Syringe) 25 gm IVPUSH Q15M PRN; Protocol PRN Reason: per Hypoglycemia Standing Ord. Doxycycline Monohydrate (Doxycycline Monohydrate 100 Mg Capsule) 100 mg PO Q12H [facility] Last Admin: 01/27/25 08:09 Dose: 100 mg Documented By: SIENNA Empagliflozin (Empagliflozin 10 Mg Tablet) 10 mg PO DAILY [facility] Last Admin: 01/27/25 08:09 Dose: 10 mg Documented By: SIENNA Furosemide (Furosemide 20 Mg Tablet) 20 mg PO DAILY [facility]; Protocol Last Admin: 01/27/25 08:09 Dose: 20 mg Documented By: SIENNA Glucose (Glucose Gel 15 Gm Gel..Gram.) 15 gm PO Q15M PRN; Protocol PRN Reason: per Hypoglycemia Standing Ord. Insulin Glargine (Insulin Glargine,Hum.Rec.Anlog 100 Unit/Ml 10 Ml Vial) 21 unit SUBCUT DAILY [facility] Last Admin: 01/27/25 08:15 Dose: 21 unit Documented By: SIENNA Insulin Human Lispro (Insulin Lispro 100 Unit/Ml 3 Ml Vial) 0 unit SUBCUT QIDACHS [facility]; Protocol Last Admin: 01/27/25 16:11 Dose: Not Given Documented By: SIENNA Non-Admin Reason: No Insulin Coverage Magnesium Hydroxide (Milk Of Magnesia 30 Ml Oral.Susp) 30 ml PO DAILY PRN PRN Reason: Constipation Melatonin (Melatonin 3 Mg Tablet) 6 mg PO BEDTIME PRN PRN Reason: Insomnia Metoprolol Tartrate (Metoprolol Tartrate 50 Mg Tablet) 50 mg PO BID [facility]; Protocol Last Admin: 01/27/25 08:09 Dose: 50 mg Documented By: SIENNA Nitroglycerin (Nitroglycerin 0.4 Mg Tab.Subl) 0.4 mg SUBLINGUAL Q5MX3 PRN PRN Reason: Chest Pain Last Admin: 01/27/25 00:13 Dose: 0.4 mg Documented By: SWATHI Omeprazole (Omeprazole 20 Mg Capsule.) 20 mg PO DAILY@0630 [facility] Last Admin: 01/27/25 06:09 Dose: 20 mg Documented By: SWATHI Ondansetron HCl (Ondansetron Hcl 4 Mg/2 Ml Vial) 4 mg IVPUSH Q8H PRN PRN Reason: Nausea and Vomiting Sodium Chloride (0.9 % Sodium Chloride Flush 3 Ml Syringe) 3 ml IVFLUSH QSHIFT [facility] Last Admin: 01/27/25 15:54 Dose: Not Given Documented By: SIENNA Non-Admin Reason: Previously Administered Valsartan (Valsartan 160 Mg Tablet) 160 mg PO DAILY@0900 [facility]; Protocol On Hold: 01/26/25 15:42 Last Admin: 01/26/25 08:08 Dose: 160 mg Documented By: SIENNA Warfarin Sodium (Warfarin Sodium 7.5 Mg Tablet) 7.5 mg PO TUTH@1800 [facility] On Hold: 01/27/25 11:47 Resume: 01/28/25 09:00 Comment: inr 3.5 Last Admin: 01/25/25 18:38 Dose: 7.5 mg Documented By: ASHLEY Warfarin Sodium (Warfarin Sodium 5 Mg Tablet) 5 mg PO SUMOWEFRSA@1800 [facility] Last Admin: 01/26/25 17:36 Dose: 5 mg Documented By: SIENNA Labs 01/27/25 06:23 01/27/25 06:23 Labs: Laboratory Results - last 24 hr 01/26/25 01/26/25 01/27/25 19:55 21:26 06:23 MCV 75.1 L MCH 23.1 L MCHC 30.8 L RDW 15.9 Plt Count 265 MPV 10.0 Immature Gran % (Auto) 0.4 Neut % (Auto) 75.6 H Lymph % (Auto) 12.9 L [place] % (Auto) 9.8 Eos % (Auto) 0.8 Baso % (Auto) 0.5 Lymph # (Auto) 1.4 [place] # (Auto) 1.1 Eos # (Auto) 0.1 Baso # (Auto) 0.1 Abs Immat Gran (auto) 0.04 H Absolute Neuts (auto) 8.4 H Absolute Nucleated RBC 0.000 Nucleated RBC % (auto) 0.0 PT 40.1 H D INR 3.5 H Anion Gap 14 Estim Creat Clear Calc 49.0 Estimated GFR > 60 POC Glucose 243 H Random Glucose 132 H Calcium 9.0 Urine Color Yellow Urine Appearance Clear Urine pH 5.0 Ur Specific [place] >= 1.030 H Urine Protein Negative Urine Glucose (UA) >=1000 H Urine Ketones Negative Urine Blood Negative Urine Nitrite Negative Ur Leukocyte Esterase Negative Urine RBC 0-2 Urine WBC 0-5 Ur Squamous Epith Cells 0-2 Urine Bacteria None Seen Hyaline Casts 0-2 01/27/25 01/27/25 01/27/25 07:35 10:44 15:59 MCV MCH MCHC RDW Plt Count MPV Immature Gran % (Auto) Neut % (Auto) Lymph % (Auto) [place] % (Auto) Eos % (Auto) Baso % (Auto) Lymph # (Auto) [place] # (Auto) Eos # (Auto) Baso # (Auto) Abs Immat Gran (auto) Absolute Neuts (auto) Absolute Nucleated RBC Nucleated RBC % (auto) PT INR Anion Gap Estim Creat Clear Calc Estimated GFR POC Glucose 149 H 302 H 120 H Random Glucose Calcium Urine Color Urine Appearance Urine pH Ur Specific [place] Urine Protein Urine Glucose (UA) Urine Ketones Urine Blood Urine Nitrite Ur Leukocyte Esterase Urine RBC Urine WBC Ur Squamous Epith Cells Urine Bacteria Hyaline Casts Microbiology Microbiology Results: Microbiology 01/21/25 23:39 Blood Culture - Final Blood - Venous No growth after 5 days. 01/21/25 23:39 Blood Culture - Final Blood - Venous No growth after 5 days. Assessment and Plan (1) Acute on chronic heart failure with preserved ejection fraction (HFpEF): Status: Acute (2) History of mechanical aortic valve replacement: Status: Acute (3) Hypertension: Status: Acute (4) Anticoagulated on warfarin: Status: Acute (5) Diabetes: Status: Acute (6) Acute kidney injury: Status: Acute (7) Right leg weakness: Status: Acute (8) Cerebral infarct: Status: Acute (9) Encephalopathy: Status: Acute Plan 79-year-old female with a past medical history significant for hypertension, diabetes, hyperlipidemia, HFpEF and mechanical aortic valve replacement on warfarin, who presented to the ED again due to weakness for the past few weeks with associated right lower extremity weakness, dizziness and gait instability, admitted with acute CVA left central semiovale with watershed infarct & Leukocytosis Possible sepsis Noting elevated white cell count of 17.2; neutrophilic shift. Patient is describing fatigability; no focal infective nidus based on symptoms. Chest x-ray revealing left lower lobe opacification - possible source Urinalysis PLAN - urinalysis - blood culture if pyrexia - lactic acid - 500 cc LR bolus Acute CVA - left central semiovale - left-sided watershed infarct acute-subacute - right medial frontal lobe Presented with right lower extremity weakness, aphasia Head CT with acute infarction left centrum semiovale, recommend MRI CTA head/neck with dilated ascending aorta measuring 4.4 cm MRI head showed acute to subacute left-sided watershed infarct and additional infarct in medial right frontal region; also showed innumerable multifocal microhemorrhages ECHO 01/24 revealing abnormal mechanical AVR, severe mitral stenosis with possible mobile calcific mass. Patient has right-sided weakness in the setting of new leukocytosis and relative hypotension possibly 2/2 post stroke recrudescence (?Possibly developing sepsis) PLAN - outpatient transesophageal echocardiography as per Cardiology - passed bedside swallow - continue high-intensity statin - monitor on telemetry - PT/OT/speech - no aspirin, continue Coumadin as per Neurology - Neurology following - discharge to short-term rehab - HOLD ANTIHYPERTENSIVES Mechanical AVR dysfunction Severe mitral stenosis; possible mobile calcific mass - outpatient transesophageal ECHO - follow up outpatient Cardiology Suprtherapeutic INR - INR has been supratherapeutic through most of stay; goal 2-3 - had warfarin at 2.5mg x2 days; resume normal dosing depending on INR - check PT/INR daily BELEN - cr 1.42-->1.06 after IVF in ED - RECURRENT WORSENING OF CREATININE FROM 0.9-1.3 - avoid nephrotoxins when possible - monitor BMP ?UTI - UA equivocal - no leukocytosis, vitals stable, no sepsis - urine culture negative, empiric ceftriaxone d/c'd Anemia, microcytic - stable, at baseline HTN - HOLD ANTIHYPERTENSIVES - continue amlodipine, metoprolol, losartan DM - sliding scale insulin, Lantus - diabetic diet HLD - increased statin chronic HFpEF - no acute exacerbation - continue metoprolol and furosemide QUALITY METRICS - VTE: WARFARIN INR 2-3 - CODE STATUS: FULL CODE - DIET: DIABETIC Total time managing care of this patient today: 35 minutes. Quality Stroke Does the patient have a stroke diagnosis?: Yes Reason for No Anti-thrombotic by Day Two: N/A - Med Ordered (Pt on warfarin; no aspirin as per neurology) VTE Prior VTE?: No VTE Risk Level:: Medical - moderate - high VTE Device Contraindication: Treatment Not Indicated VTE Drug Contraindication: N/A - Med Ordered
[2025-01-27 20:03] LABS: Glucose, Whole Blood 203 mg/dL (60-115)
[2025-01-28] VITALS (8 sets, daily range): BP systolic 128–163; BP diastolic 60–74; PULSE 67–91; RESP 16–19; TEMP 35.8–37; O2SAT 90–99
[2025-01-28 06:56] LABS: MANUAL DIFF FLAG NO
[2025-01-28 06:57] LABS: Hematocrit 28.7 % (37.0-47.0); Hemoglobin 8.8 g/dl (12.0-16.0); Imm Gran Abs Auto 0.03 X10*3/uL (0.00-0.03); Imm Gran Pct Auto 0.4 % (0.0-0.4); Lymphocytes Absolute Auto 1.2 X10*3/uL (1.2-4.9); Mean Corpuscular HGB Conc 30.7 g/dl (31.0-35.0); Mean Corpuscular Hemoglobin 23.3 pg (27.0-33.0); Mean Corpuscular Volume 75.9 fL (80.0-98.0); NRBC Abs Auto 0.000 X10*3/uL (0.0-0.012); NRBC Pct Auto 0.0 /100WBC (0.0-0.2); Platelet Count 265 X10*3/uL (160-400); Red Blood Count 3.78 X10*6/uL (4.20-5.50); White Blood Count 8.4 X10*3/uL (4.8-10.8)
[2025-01-28 07:02] LABS: INTERNATIONAL NORM RATIO 3.5 (0.9-1.1); Prothrombin Time 40.3 SEC (10.9-12.4)
[2025-01-28 07:14] LABS: Anion Gap 14 (12-20); Blood Urea Nitrogen 21 mg/dL (9-16); Calcium 9.0 mg/dL (8.4-10.2); Carbon Dioxide 23 mmol/L (22-29); Chloride 106 mmol/L (96-108); Creatinine Clr Calc Pharmacy 56.1; Estimated Glomerular Filt Rate > 60; Potassium 3.7 mmol/L (3.3-5.1); Sodium 139 mmol/L (135-145)
[2025-01-28 07:23] LABS: Glucose, Whole Blood 140 mg/dL (60-115)
[2025-01-28] MEDS: Insulin Glargine,Hum.rec.anlog 100 UNIT/ML 10 ML VIAL 21 UNIT SUBCUT (09:16)
[2025-01-28] MEDS: 0.9 % Sodium Chloride Flush 3 ML SYRINGE IVFLUSH ×3 (09:20→20:42)
[2025-01-28 11:48] LABS: Glucose, Whole Blood 305 mg/dL (60-115)
[2025-01-28 15:48] LABS: Glucose, Whole Blood 141 mg/dL (60-115)
--- NOTE | 2025-01-28 15:50 | MHC.CM.PN ---
EMR reviewed, pt is not medically cleared for discharge.
--- NOTE | 2025-01-28 16:29 | P.PNIM_ITS ---
Subjective Subjective Date of Service: 01/28/25 Interval History: She has not had a bowel movement since Friday. The patient has been experiencing significant changes in blood pressure when changing positions, particularly when lying down, sitting up, or standing. These positional changes are accompanied by symptoms, though the specific nature of these symptoms was not detailed. The medical team plans to conduct orthostatic blood pressure checks to assess the extent of these changes and determine if additional fluid administration is necessary. Emily has been in the hospital for several days, which has likely contributed to some muscle weakness. The healthcare team is encouraging her to move as much as possible while ensuring her safety, particularly during position changes. They are planning to teach her how to safely perform dynamic movements. The patient's constipation is a new concern, as she has not had a bowel movement since Friday. The medical team plans to address this issue with medication. Review of Systems Cardiovascular: Positive for symptoms with position changes. Gastrointestinal: Positive for constipation. Musculoskeletal: Positive for weakness Review of Systems: Yes all other systems are reviewed and are negative Physical Exam 2 Exam: Exam: General: A&O x3, oriented to time place person and situation, comfortable, no pain Cardiac: S1, S2 auscultated with no S3/4, no MRG. Well perfused. Orthostatics negative. Respiratory: Normal breath sounds auscultated throughout all lung zones, without wheezing, rales. Normal rate. GI/ : No abdominal pain on palpation, no masses or distentions. MSK: Normal ambulation without pain at bony prominences or musculature Neurological: Normal neurological examination on overview, without obvious CN II-XII abnormalities. Vital Signs: Vital Signs: Last Vital Signs Temp 98.6 F 01/28/25 12:00 Pulse 69 01/28/25 12:00 Resp 16 01/28/25 12:00 BP 132/61 01/28/25 12:00 Pulse Ox 99 01/28/25 12:00 O2 Del Method Room Air 01/28/25 12:00 BMI result Body Mass Index 31.9 Objective Data Active Medications Acetaminophen (Acetaminophen 325 Mg Tablet) 975 mg PO Q6H PRN PRN Reason: Pain, Mild 1-3,fever,headache Last Admin: 01/28/25 14:45 Dose: 975 mg Documented By: NICHELLE Amlodipine Besylate (Amlodipine Besylate 5 Mg Tablet) 5 mg PO DAILY [facility]; Protocol On Hold: 01/26/25 15:42 Last Admin: 01/26/25 08:08 Dose: 5 mg Documented By: SIENNA Aspirin (Aspirin 81 Mg Tab.Chew) 81 mg PO DAILY [facility] Last Admin: 01/28/25 09:13 Dose: 81 mg Documented By: NICHELLE Atorvastatin Calcium (Atorvastatin Calcium 80 Mg Tablet) 80 mg PO DAILY [facility] Last Admin: 01/28/25 09:13 Dose: 80 mg Documented By: NICHELLE Calcium Carbonate (Calcium Carbonate 750 Mg Tab.Chew) 750 mg PO Q4H PRN PRN Reason: Heartburn Ceftriaxone Sodium (Ceftriaxone Sodium 1 Gm Vial) 1 gm IVPUSH Q24H [facility] Last Admin: 01/27/25 20:26 Dose: 1 gm Documented By: ROSA ISELA Dextrose (Dextrose 50 % 25 Gm/50 Ml Syringe) 25 gm IVPUSH Q15M PRN; Protocol PRN Reason: per Hypoglycemia Standing Ord. Doxycycline Monohydrate (Doxycycline Monohydrate 100 Mg Capsule) 100 mg PO Q12H [facility] Last Admin: 01/28/25 09:13 Dose: 100 mg Documented By: NICHELLE Empagliflozin (Empagliflozin 10 Mg Tablet) 10 mg PO DAILY [facility] Last Admin: 01/28/25 09:14 Dose: 10 mg Documented By: NICHELLE Furosemide (Furosemide 20 Mg Tablet) 20 mg PO DAILY [facility]; Protocol Last Admin: 01/28/25 09:16 Dose: 20 mg Documented By: NICHELLE Glucose (Glucose Gel 15 Gm Gel..Gram.) 15 gm PO Q15M PRN; Protocol PRN Reason: per Hypoglycemia Standing Ord. Insulin Glargine (Insulin Glargine,Hum.Rec.Anlog 100 Unit/Ml 10 Ml Vial) 21 unit SUBCUT DAILY [facility] Last Admin: 01/28/25 09:16 Dose: 21 unit Documented By: NICHELLE Insulin Human Lispro (Insulin Lispro 100 Unit/Ml 3 Ml Vial) 0 unit SUBCUT QIDACHS [facility]; Protocol Last Admin: 01/28/25 16:13 Dose: Not Given Documented By: NICHELLE Non-Admin Reason: No Insulin Coverage Magnesium Hydroxide (Milk Of Magnesia 30 Ml Oral.Susp) 30 ml PO DAILY PRN PRN Reason: Constipation Meclizine HCl (Meclizine Hcl 25 Mg Tablet) 25 mg PO TID [facility] Stop: 02/04/25 15:59 Melatonin (Melatonin 3 Mg Tablet) 6 mg PO BEDTIME PRN PRN Reason: Insomnia Metoprolol Tartrate (Metoprolol Tartrate 50 Mg Tablet) 50 mg PO BID [facility]; Protocol Last Admin: 01/28/25 09:14 Dose: 50 mg Documented By: NICHELLE Nitroglycerin (Nitroglycerin 0.4 Mg Tab.Subl) 0.4 mg SUBLINGUAL Q5MX3 PRN PRN Reason: Chest Pain Last Admin: 01/27/25 00:13 Dose: 0.4 mg Documented By: SWATHI Omeprazole (Omeprazole 20 Mg Capsule.Dr) 20 mg PO DAILY@0630 [facility] Last Admin: 01/28/25 05:41 Dose: 20 mg Documented By: ROSA ISELA Ondansetron HCl (Ondansetron Hcl 4 Mg/2 Ml Vial) 4 mg IVPUSH Q8H PRN PRN Reason: Nausea and Vomiting Sodium Chloride (0.9 % Sodium Chloride Flush 3 Ml Syringe) 3 ml IVFLUSH QSHIFT [facility] Last Admin: 01/28/25 09:20 Dose: 3 ml Documented By: NICHELLE Valsartan (Valsartan 160 Mg Tablet) 160 mg PO DAILY@0900 [facility]; Protocol On Hold: 01/26/25 15:42 Last Admin: 01/26/25 08:08 Dose: 160 mg Documented By: SIENNA Warfarin Sodium (Warfarin Sodium 7.5 Mg Tablet) 7.5 mg PO TUTH@1800 [facility] Last Admin: 01/25/25 18:38 Dose: 7.5 mg Documented By: ASHLEY Warfarin Sodium (Warfarin Sodium 5 Mg Tablet) 5 mg PO SUMOWEFRSA@1800 [facility] On Hold: 01/28/25 10:58 Resume: 01/29/25 09:00 Comment: INR 3.5 Last Admin: 01/26/25 17:36 Dose: 5 mg Documented By: SIENNA Labs 01/28/25 06:46 01/28/25 06:46 Labs: Laboratory Results - last 24 hr 01/27/25 01/28/25 01/28/25 19:59 06:46 07:17 MCV 75.9 L MCH 23.3 L MCHC 30.7 L RDW 15.9 Plt Count 265 MPV 9.7 Immature Gran % (Auto) 0.4 Neut % (Auto) 73.2 H Lymph % (Auto) 14.3 L [place] % (Auto) 9.9 Eos % (Auto) 1.7 Baso % (Auto) 0.5 Lymph # (Auto) 1.2 [place] # (Auto) 0.8 Eos # (Auto) 0.1 Baso # (Auto) 0.0 Abs Immat Gran (auto) 0.03 Absolute Neuts (auto) 6.2 Absolute Nucleated RBC 0.000 Nucleated RBC % (auto) 0.0 PT 40.3 H INR 3.5 H Anion Gap 14 Estim Creat Clear Calc 56.1 Estimated GFR > 60 POC Glucose 203 H 140 H Random Glucose 147 H Calcium 9.0 01/28/25 01/28/25 11:44 15:30 MCV MCH MCHC RDW Plt Count MPV Immature Gran % (Auto) Neut % (Auto) Lymph % (Auto) [place] % (Auto) Eos % (Auto) Baso % (Auto) Lymph # (Auto) [place] # (Auto) Eos # (Auto) Baso # (Auto) Abs Immat Gran (auto) Absolute Neuts (auto) Absolute Nucleated RBC Nucleated RBC % (auto) PT INR Anion Gap Estim Creat Clear Calc Estimated GFR POC Glucose 305 H 141 H Random Glucose Calcium Assessment and Plan (1) Acute on chronic heart failure with preserved ejection fraction (HFpEF): Status: Acute (2) History of mechanical aortic valve replacement: Status: Acute (3) Diabetes: Status: Acute (4) Supratherapeutic INR: Status: Acute (5) Acute kidney injury: Status: Acute (6) Cerebral infarct: Status: Acute (7) Encephalopathy: Status: Acute Plan 79-year-old female with a past medical history significant for hypertension, diabetes, hyperlipidemia, HFpEF and mechanical aortic valve replacement on warfarin, who presented to the ED again due to weakness for the past few weeks with associated right lower extremity weakness, dizziness and gait instability, admitted with acute CVA left central semiovale with watershed infarct & right medial frontal lobe, complicated by inpatient aspiration PNA. Aspiration PNA Leukocytosis Possible sepsis Noting elevated white cell count of 17.2; neutrophilic shift. Patient is describing fatigability; no focal infective nidus based on symptoms. Chest x-ray revealing left lower lobe opacification - likely source PLAN - doxycycline 100mg BID PO - Encourage hydration and PO intake Acute CVA - left central semiovale - left-sided watershed infarct acute-subacute - right medial frontal lobe Presented with right lower extremity weakness, aphasia Head CT with acute infarction left centrum semiovale, recommend MRI CTA head/neck with dilated ascending aorta measuring 4.4 cm MRI head showed acute to subacute left-sided watershed infarct and additional infarct in medial right frontal region; also showed innumerable multifocal microhemorrhages ECHO 01/24 revealing abnormal mechanical AVR, severe mitral stenosis with possible mobile calcific mass. Patient has right-sided weakness in the setting of new leukocytosis and relative hypotension possibly 2/2 post stroke recrudescence (?Possibly developing sepsis) PLAN - outpatient transesophageal echocardiography as per Cardiology - passed bedside swallow - continue high-intensity statin - monitor on telemetry - PT/OT/speech - no aspirin, continue Coumadin as per Neurology - Neurology following - discharge to short-term rehab - HOLD ANTIHYPERTENSIVES Mechanical AVR dysfunction Severe mitral stenosis; possible mobile calcific mass - outpatient transesophageal ECHO - follow up outpatient Cardiology Suprtherapeutic INR - INR has been supratherapeutic through most of stay; goal 2-3 - had warfarin at 2.5mg x2 days; resume normal dosing depending on INR - check PT/INR daily BELEN - cr 1.42-->1.06 after IVF in ED - RECURRENT WORSENING OF CREATININE FROM 0.9-1.3 - avoid nephrotoxins when possible - monitor BMP ?UTI - UA equivocal - no leukocytosis, vitals stable, no sepsis - urine culture negative, empiric ceftriaxone d/c'd Anemia, microcytic - stable, at baseline HTN - HOLD ANTIHYPERTENSIVES - continue amlodipine, metoprolol, losartan DM - sliding scale insulin, Lantus - diabetic diet HLD - increased statin chronic HFpEF - no acute exacerbation - continue metoprolol and furosemide Constipation Functional Continue bowel regimen QUALITY METRICS - VTE: WARFARIN INR 2-3 - CODE STATUS: FULL CODE - DIET: DIABETIC Total time managing care of this patient today: 45 minutes. Quality Stroke Does the patient have a stroke diagnosis?: Yes Reason for No Anti-thrombotic by Day Two: N/A - Med Ordered (Pt on warfarin; no aspirin as per neurology) VTE Prior VTE?: No VTE Risk Level:: Medical - moderate - high VTE Device Contraindication: Treatment Not Indicated VTE Drug Contraindication: N/A - Med Ordered
[2025-01-28 20:10] LABS: Glucose, Whole Blood 238 mg/dL (60-115)
[2025-01-29 03:26] VITALS: BP 150/47; PULSE 88; RESP 18; TEMP 36.2; O2SAT 94
[2025-01-29 07:21] LABS: Glucose, Whole Blood 146 mg/dL (60-115)
[2025-01-29 07:31] LABS: MANUAL DIFF FLAG NO
[2025-01-29 07:39] LABS: Hematocrit 28.0 % (37.0-47.0); Hemoglobin 8.6 g/dl (12.0-16.0); Imm Gran Abs Auto 0.02 X10*3/uL (0.00-0.03); Imm Gran Pct Auto 0.2 % (0.0-0.4); Lymphocytes Absolute Auto 1.2 X10*3/uL (1.2-4.9); Mean Corpuscular HGB Conc 30.7 g/dl (31.0-35.0); Mean Corpuscular Hemoglobin 23.0 pg (27.0-33.0); Mean Corpuscular Volume 74.9 fL (80.0-98.0); NRBC Abs Auto 0.000 X10*3/uL (0.0-0.012); NRBC Pct Auto 0.0 /100WBC (0.0-0.2); Platelet Count 291 X10*3/uL (160-400); Red Blood Count 3.74 X10*6/uL (4.20-5.50); White Blood Count 8.8 X10*3/uL (4.8-10.8)
[2025-01-29 07:45] VITALS: BP 143/66; PULSE 89; RESP 18; TEMP 36.3; O2SAT 96
[2025-01-29 07:48] LABS: INTERNATIONAL NORM RATIO 2.2 (0.9-1.1); Prothrombin Time 24.7 SEC (10.9-12.4)
[2025-01-29 07:49] LABS: Anion Gap 15 (12-20); Blood Urea Nitrogen 20 mg/dL (9-16); Calcium 9.3 mg/dL (8.4-10.2); Carbon Dioxide 25 mmol/L (22-29); Chloride 105 mmol/L (96-108); Creatinine Clr Calc Pharmacy 49.0; Estimated Glomerular Filt Rate > 60; Potassium 3.7 mmol/L (3.3-5.1); Sodium 141 mmol/L (135-145)
[2025-01-29] MEDS: 0.9 % Sodium Chloride Flush 3 ML SYRINGE IVFLUSH ×3 (08:22→21:03)
[2025-01-29] MEDS: Insulin Glargine,Hum.rec.anlog 100 UNIT/ML 10 ML VIAL 21 UNIT SUBCUT (08:24)
[2025-01-29 11:42] VITALS: BP 151/64; PULSE 73; RESP 18; TEMP 36.6; O2SAT 95
[2025-01-29 11:48] LABS: Glucose, Whole Blood 205 mg/dL (60-115)
--- NOTE | 2025-01-29 15:55 | MHC.CM.PN ---
Addendum entered by Danita Hernandez RN 01/29/25 15:57: Met with patient/family who remains in agreement w/ plan. Original Note: Per MD, patient medically cleared for dc. Patient/family have accepted a bed at [facility]. Updates sent w/ request to submit for auth. MD aware. CM will continue to follow.
--- NOTE | 2025-01-29 15:57 | P.PNIM_ITS ---
Subjective Subjective Date of Service: 01/29/25 Interval History: No new issues or complaints today. The patient reports that her dizziness has somewhat resolved with use of new medication meclizine. She endorses some intermittent fatigability throughout the day, requiring a nap. Otherwise she has no new hemiplegia, hemiparesis, palpitations, diaphoresis, retrosternal chest discomfort. Review of Systems Review of Systems: Yes all other systems are reviewed and are negative Physical Exam 2 Exam: Exam: General: A&O x3, oriented to time place person and situation, comfortable, no pain Cardiac: S1, S2 auscultated with no S3/4, no MRG. Well perfused. Orthostatics negative. Respiratory: Normal breath sounds auscultated throughout all lung zones, without wheezing, rales. Normal rate. GI/ : No abdominal pain on palpation, no masses or distentions. MSK: Normal ambulation without pain at bony prominences or musculature Neurological: Normal neurological examination on overview, without obvious CN II-XII abnormalities. Vital Signs: Vital Signs: Last Vital Signs Temp 97.9 F 01/29/25 11:42 Pulse 73 01/29/25 11:42 Resp 18 01/29/25 11:42 BP 151/64 H 01/29/25 11:42 Pulse Ox 95 01/29/25 11:42 O2 Del Method Room Air 01/29/25 11:42 BMI result Body Mass Index 31.9 Objective Data Active Medications Acetaminophen (Acetaminophen 325 Mg Tablet) 975 mg PO Q6H PRN PRN Reason: Pain, Mild 1-3,fever,headache Last Admin: 01/29/25 15:07 Dose: 975 mg Documented By: MARILEE Comments: for discomfort Amlodipine Besylate (Amlodipine Besylate 5 Mg Tablet) 5 mg PO DAILY [facility]; Protocol On Hold: 01/26/25 15:42 Last Admin: 01/26/25 08:08 Dose: 5 mg Documented By: SIENNA Aspirin (Aspirin 81 Mg Tab.Chew) 81 mg PO DAILY [facility] Last Admin: 01/29/25 08:22 Dose: 81 mg Documented By: KIERA Atorvastatin Calcium (Atorvastatin Calcium 80 Mg Tablet) 80 mg PO DAILY [facility] Last Admin: 01/29/25 08:22 Dose: 80 mg Documented By: KIERA Calcium Carbonate (Calcium Carbonate 750 Mg Tab.Chew) 750 mg PO Q4H PRN PRN Reason: Heartburn Ceftriaxone Sodium (Ceftriaxone Sodium 1 Gm Vial) 1 gm IVPUSH Q24H [facility] Last Admin: 01/28/25 20:40 Dose: 1 gm Documented By: EVELIO Dextrose (Dextrose 50 % 25 Gm/50 Ml Syringe) 25 gm IVPUSH Q15M PRN; Protocol PRN Reason: per Hypoglycemia Standing Ord. Doxycycline Monohydrate (Doxycycline Monohydrate 100 Mg Capsule) 100 mg PO Q12H [facility] Last Admin: 01/29/25 08:22 Dose: 100 mg Documented By: KIERA Empagliflozin (Empagliflozin 10 Mg Tablet) 10 mg PO DAILY [facility] Last Admin: 01/29/25 08:22 Dose: 10 mg Documented By: KIERA Furosemide (Furosemide 20 Mg Tablet) 20 mg PO DAILY [facility]; Protocol Last Admin: 01/29/25 08:22 Dose: 20 mg Documented By: KIERA Glucose (Glucose Gel 15 Gm Gel..Gram.) 15 gm PO Q15M PRN; Protocol PRN Reason: per Hypoglycemia Standing Ord. Insulin Glargine (Insulin Glargine,Hum.Rec.Anlog 100 Unit/Ml 10 Ml Vial) 21 unit SUBCUT DAILY [facility] Last Admin: 01/29/25 08:24 Dose: 21 unit Documented By: KIERA Insulin Human Lispro (Insulin Lispro 100 Unit/Ml 3 Ml Vial) 0 unit SUBCUT QIDACHS [facility]; Protocol Last Admin: 01/29/25 12:48 Dose: 4 unit Documented By: MARILEE Magnesium Hydroxide (Milk Of Magnesia 30 Ml Oral.Susp) 30 ml PO DAILY PRN PRN Reason: Constipation Meclizine HCl (Meclizine Hcl 25 Mg Tablet) 25 mg PO TID [facility] Stop: 02/04/25 15:59 Last Admin: 01/29/25 15:07 Dose: 25 mg Documented By: MARILEE Melatonin (Melatonin 3 Mg Tablet) 6 mg PO BEDTIME PRN PRN Reason: Insomnia Metoprolol Tartrate (Metoprolol Tartrate 50 Mg Tablet) 50 mg PO BID [facility]; Protocol Last Admin: 01/29/25 08:22 Dose: 50 mg Documented By: KIERA Nitroglycerin (Nitroglycerin 0.4 Mg Tab.Subl) 0.4 mg SUBLINGUAL Q5MX3 PRN PRN Reason: Chest Pain Last Admin: 01/27/25 00:13 Dose: 0.4 mg Documented By: SWATHI Omeprazole (Omeprazole 20 Mg Capsule.Dr) 20 mg PO DAILY@0630 [facility] Last Admin: 01/29/25 05:32 Dose: 20 mg Documented By: EVELIO Ondansetron HCl (Ondansetron Hcl 4 Mg/2 Ml Vial) 4 mg IVPUSH Q8H PRN PRN Reason: Nausea and Vomiting Sodium Chloride (0.9 % Sodium Chloride Flush 3 Ml Syringe) 3 ml IVFLUSH QSHIFT [facility] Last Admin: 01/29/25 08:22 Dose: 3 ml Documented By: KIERA Valsartan (Valsartan 160 Mg Tablet) 160 mg PO DAILY@0900 [facility]; Protocol On Hold: 01/26/25 15:42 Last Admin: 01/26/25 08:08 Dose: 160 mg Documented By: SIENNA Warfarin Sodium (Warfarin Sodium 7.5 Mg Tablet) 7.5 mg PO TUTH@1800 [facility] Last Admin: 01/25/25 18:38 Dose: 7.5 mg Documented By: ASHLEY Warfarin Sodium (Warfarin Sodium 5 Mg Tablet) 5 mg PO SUMOWEFRSA@1800 [facility] Last Admin: 01/26/25 17:36 Dose: 5 mg Documented By: SIENNA Labs 01/29/25 07:11 01/29/25 07:11 Labs: Laboratory Results - last 24 hr 01/28/25 01/29/25 01/29/25 20:02 06:55 07:11 MCV 74.9 L MCH 23.0 L MCHC 30.7 L RDW 15.9 Plt Count 291 MPV 9.8 Immature Gran % (Auto) 0.2 Neut % (Auto) 76.9 H Lymph % (Auto) 13.5 L [place] % (Auto) 7.9 Eos % (Auto) 1.0 Baso % (Auto) 0.5 Lymph # (Auto) 1.2 [place] # (Auto) 0.7 Eos # (Auto) 0.1 Baso # (Auto) 0.0 Abs Immat Gran (auto) 0.02 Absolute Neuts (auto) 6.8 Absolute Nucleated RBC 0.000 Nucleated RBC % (auto) 0.0 PT 24.7 H D INR 2.2 H Anion Gap 15 Estim Creat Clear Calc 49.0 Estimated GFR > 60 POC Glucose 238 H 146 H Random Glucose 155 H Calcium 9.3 01/29/25 11:36 MCV MCH MCHC RDW Plt Count MPV Immature Gran % (Auto) Neut % (Auto) Lymph % (Auto) [place] % (Auto) Eos % (Auto) Baso % (Auto) Lymph # (Auto) [place] # (Auto) Eos # (Auto) Baso # (Auto) Abs Immat Gran (auto) Absolute Neuts (auto) Absolute Nucleated RBC Nucleated RBC % (auto) PT INR Anion Gap Estim Creat Clear Calc Estimated GFR POC Glucose 205 H Random Glucose Calcium Assessment and Plan (1) Aspiration pneumonia: Status: Acute (2) Acute on chronic heart failure with preserved ejection fraction (HFpEF): Status: Acute (3) History of mechanical aortic valve replacement: Status: Acute (4) Anticoagulated on warfarin: Status: Acute (5) Acute kidney injury: Status: Acute (6) Right leg weakness: Status: Acute (7) Cerebral infarct: Status: Acute (8) Acute CVA (cerebrovascular accident): Status: Acute Plan 79-year-old female with a past medical history significant for hypertension, diabetes, hyperlipidemia, HFpEF and mechanical aortic valve replacement on warfarin, who presented to the ED again due to weakness for the past few weeks with associated right lower extremity weakness, dizziness and gait instability, admitted with acute CVA left central semiovale with watershed infarct & right medial frontal lobe, complicated by inpatient aspiration PNA. Aspiration PNA Leukocytosis Noting elevated white cell count of 17.2; neutrophilic shift. White cells have improved - currently normalized. Patient is describing fatigability; no focal infective nidus based on symptoms. Chest x-ray revealing left lower lobe opacification - likely source No evidence of sepsis. PLAN - continue doxycycline 100mg BID PO - Encourage hydration and PO intake Acute CVA - left central semiovale - left-sided watershed infarct acute-subacute - right medial frontal lobe Presented with right lower extremity weakness, aphasia Head CT with acute infarction left centrum semiovale, recommend MRI CTA head/neck with dilated ascending aorta measuring 4.4 cm MRI head showed acute to subacute left-sided watershed infarct and additional infarct in medial right frontal region; also showed innumerable multifocal microhemorrhages ECHO 01/24 revealing abnormal mechanical AVR, severe mitral stenosis with possible mobile calcific mass. Patient had right-sided weakness in the setting of new leukocytosis and relative hypotension possibly 2/2 post stroke recrudescence PLAN - outpatient transesophageal echocardiography as per Cardiology - passed bedside swallow - continue high-intensity statin - monitor on telemetry - PT/OT/speech - no aspirin, continue Coumadin as per Neurology - Neurology following - discharge to short-term rehab - HOLD ANTIHYPERTENSIVES Mechanical AVR dysfunction Severe mitral stenosis; possible mobile calcific mass - outpatient transesophageal ECHO - follow up outpatient Cardiology Suprtherapeutic INR - INR has been supratherapeutic through most of stay; goal 2-3 - had warfarin at 2.5mg x2 days; resume normal dosing depending on INR - check PT/INR daily BELEN - cr 1.42-->1.06 after IVF in ED - RECURRENT WORSENING OF CREATININE FROM 0.9-1.3 - avoid nephrotoxins when possible - monitor BMP Anemia, microcytic - stable, at baseline HTN - HOLD ANTIHYPERTENSIVES - continue amlodipine, metoprolol, losartan DM - sliding scale insulin, Lantus - diabetic diet HLD - increased statin chronic HFpEF - no acute exacerbation - continue metoprolol and furosemide Constipation Functional Continue bowel regimen QUALITY METRICS - VTE: WARFARIN INR 2-3 - CODE STATUS: FULL CODE - DIET: DIABETIC - DISPOSITION: SHORT-TERM REHABILITATION. MEDICALLY READY FOR DISCHARGE Total time managing care of this patient today: 35 minutes. Quality Stroke Does the patient have a stroke diagnosis?: Yes Reason for No Anti-thrombotic by Day Two: N/A - Med Ordered (Pt on warfarin; no aspirin as per neurology) VTE Prior VTE?: No VTE Risk Level:: Medical - moderate - high VTE Device Contraindication: Treatment Not Indicated VTE Drug Contraindication: N/A - Med Ordered
[2025-01-29 16:00] VITALS: BP 136/65; PULSE 86; RESP 16; TEMP 36; O2SAT 95
[2025-01-29 16:04] LABS: Glucose, Whole Blood 233 mg/dL (60-115)
[2025-01-29 19:06] VITALS: BP 143/63; PULSE 84; RESP 19; TEMP 36.2; O2SAT 94
[2025-01-29 20:30] LABS: Glucose, Whole Blood 208 mg/dL (60-115)
[2025-01-29 23:09] VITALS: BP 120/62; PULSE 57; RESP 20; TEMP 36.5; O2SAT 95
[2025-01-30 03:22] VITALS: BP 142/66; PULSE 72; RESP 19; TEMP 36.4; O2SAT 92
[2025-01-30 07:29] LABS: MANUAL DIFF FLAG NO
[2025-01-30 07:43] LABS: Hematocrit 30.3 % (37.0-47.0); Hemoglobin 9.3 g/dl (12.0-16.0); Imm Gran Abs Auto 0.02 X10*3/uL (0.00-0.03); Imm Gran Pct Auto 0.3 % (0.0-0.4); Lymphocytes Absolute Auto 1.4 X10*3/uL (1.2-4.9); Mean Corpuscular HGB Conc 30.7 g/dl (31.0-35.0); Mean Corpuscular Hemoglobin 23.3 pg (27.0-33.0); Mean Corpuscular Volume 75.8 fL (80.0-98.0); NRBC Abs Auto 0.000 X10*3/uL (0.0-0.012); NRBC Pct Auto 0.0 /100WBC (0.0-0.2); Platelet Count 291 X10*3/uL (160-400); Red Blood Count 4.00 X10*6/uL (4.20-5.50); White Blood Count 6.0 X10*3/uL (4.8-10.8)
[2025-01-30 07:44] LABS: INTERNATIONAL NORM RATIO 1.7 (0.9-1.1); Prothrombin Time 19.4 SEC (10.9-12.4)
[2025-01-30 07:55] VITALS: BP 140/66; PULSE 85; RESP 17; TEMP 36.6; O2SAT 93
[2025-01-30 07:58] LABS: Glucose, Whole Blood 156 mg/dL (60-115)
[2025-01-30 08:09] LABS: Anion Gap 14 (12-20); Blood Urea Nitrogen 22 mg/dL (9-16); Calcium 9.4 mg/dL (8.4-10.2); Carbon Dioxide 27 mmol/L (22-29); Chloride 105 mmol/L (96-108); Creatinine Clr Calc Pharmacy 49.0; Estimated Glomerular Filt Rate > 60; Potassium 4.1 mmol/L (3.3-5.1); Sodium 142 mmol/L (135-145)
[2025-01-30] MEDS: Insulin Glargine,Hum.rec.anlog 100 UNIT/ML 10 ML VIAL 21 UNIT SUBCUT (08:54)
[2025-01-30] MEDS: 0.9 % Sodium Chloride Flush 3 ML SYRINGE IVFLUSH ×3 (09:27→19:51)
[2025-01-30 11:45] LABS: Glucose, Whole Blood 256 mg/dL (60-115)
[2025-01-30 12:00] VITALS: BP 112/55; PULSE 69; RESP 18; TEMP 37; O2SAT 94
[2025-01-30 16:00] VITALS: BP 127/60; PULSE 84; RESP 18; TEMP 37; O2SAT 93
[2025-01-30 16:03] LABS: Glucose, Whole Blood 241 mg/dL (60-115)
--- NOTE | 2025-01-30 16:59 | HO.PM.IMPN ---
Subjective Subjective Date of Service: 01/30/25 Interval History: Feels well today. Reporting intermittent dizziness with right ear tinnitus. Reports that she feels weak with episodes of dizziness. Demonstrated to be possibly 2/2 BPPV as opposed to stroke-like symptoms. Neurological examination otherwise normal; without evidence of focal neurological deficits. The patient reports eagerness to be discharged. Review of Systems Review of Systems: Yes all other systems are reviewed and are negative Physical Exam Exam: Exam: General: A&O x3, oriented to time place person and situation, comfortable, no pain Cardiac: S1, S2 auscultated with no S3/4, no MRG. Well perfused. Orthostatics negative. Respiratory: Normal breath sounds auscultated throughout all lung zones, without wheezing, rales. Normal rate. GI/ : No abdominal pain on palpation, no masses or distentions. MSK: Normal ambulation without pain at bony prominences or musculature Neurological: Normal neurological examination on overview, without obvious CN II-XII abnormalities. Vital Signs: Vital Signs: Last Vital Signs Temp 98.6 F 01/30/25 16:00 Pulse 84 01/30/25 16:00 Resp 18 01/30/25 16:00 BP 127/60 01/30/25 16:00 Pulse Ox 93 01/30/25 16:00 O2 Del Method Room Air 01/30/25 16:00 BMI result Body Mass Index 31.9 Objective Data Active Medications Acetaminophen (Acetaminophen 325 Mg Tablet) 975 mg PO Q6H PRN PRN Reason: Pain, Mild 1-3,fever,headache Last Admin: 01/29/25 20:57 Dose: 975 mg Documented By: GAGAN Comments: pt Dr. Fredy torres to give early Amlodipine Besylate (Amlodipine Besylate 5 Mg Tablet) 5 mg PO DAILY [facility]; Protocol On Hold: 01/26/25 15:42 Last Admin: 01/26/25 08:08 Dose: 5 mg Documented By: SIENNA Aspirin (Aspirin 81 Mg Tab.Chew) 81 mg PO DAILY [facility] Last Admin: 01/30/25 08:54 Dose: 81 mg Documented By: MARILEE Atorvastatin Calcium (Atorvastatin Calcium 80 Mg Tablet) 80 mg PO DAILY [facility] Last Admin: 01/30/25 08:54 Dose: 80 mg Documented By: MARILEE Calcium Carbonate (Calcium Carbonate 750 Mg Tab.Chew) 750 mg PO Q4H PRN PRN Reason: Heartburn Ceftriaxone Sodium (Ceftriaxone Sodium 1 Gm Vial) 1 gm IVPUSH Q24H [facility] Last Admin: 01/29/25 20:57 Dose: 1 gm Documented By: GAGAN Dextrose (Dextrose 50 % 25 Gm/50 Ml Syringe) 25 gm IVPUSH Q15M PRN; Protocol PRN Reason: per Hypoglycemia Standing Ord. Doxycycline Monohydrate (Doxycycline Monohydrate 100 Mg Capsule) 100 mg PO Q12H [facility] Last Admin: 01/30/25 09:20 Dose: 100 mg Documented By: MARILEE Empagliflozin (Empagliflozin 10 Mg Tablet) 10 mg PO DAILY [facility] Last Admin: 01/30/25 08:54 Dose: 10 mg Documented By: MARILEE Furosemide (Furosemide 20 Mg Tablet) 20 mg PO DAILY [facility]; Protocol Last Admin: 01/30/25 09:41 Dose: 20 mg Documented By: MARILEE Glucose (Glucose Gel 15 Gm Gel..Gram.) 15 gm PO Q15M PRN; Protocol PRN Reason: per Hypoglycemia Standing Ord. Insulin Glargine (Insulin Glargine,Hum.Rec.Anlog 100 Unit/Ml 10 Ml Vial) 21 unit SUBCUT DAILY [facility] Last Admin: 01/30/25 08:54 Dose: 21 unit Documented By: MARILEE Insulin Human Lispro (Insulin Lispro 100 Unit/Ml 3 Ml Vial) 0 unit SUBCUT QIDACHS [facility]; Protocol Last Admin: 01/30/25 16:30 Dose: 4 unit Documented By: MARILEE Magnesium Hydroxide (Milk Of Magnesia 30 Ml Oral.Susp) 30 ml PO DAILY PRN PRN Reason: Constipation Meclizine HCl (Meclizine Hcl 25 Mg Tablet) 25 mg PO TID [facility] Stop: 02/04/25 15:59 Last Admin: 01/30/25 15:28 Dose: 25 mg Documented By: MARILEE Melatonin (Melatonin 3 Mg Tablet) 6 mg PO BEDTIME PRN PRN Reason: Insomnia Metoprolol Tartrate (Metoprolol Tartrate 50 Mg Tablet) 50 mg PO BID [facility]; Protocol Last Admin: 01/30/25 09:39 Dose: 50 mg Documented By: MARILEE Nitroglycerin (Nitroglycerin 0.4 Mg Tab.Subl) 0.4 mg SUBLINGUAL Q5MX3 PRN PRN Reason: Chest Pain Last Admin: 01/27/25 00:13 Dose: 0.4 mg Documented By: SWATHI Omeprazole (Omeprazole 20 Mg Capsule.Dr) 20 mg PO DAILY@0630 [facility] Last Admin: 01/30/25 06:20 Dose: 20 mg Documented By: LARRY Ondansetron HCl (Ondansetron Hcl 4 Mg/2 Ml Vial) 4 mg IVPUSH Q8H PRN PRN Reason: Nausea and Vomiting Sodium Chloride (0.9 % Sodium Chloride Flush 3 Ml Syringe) 3 ml IVFLUSH QSHIFT [facility] Last Admin: 01/30/25 16:26 Dose: 3 ml Documented By: MARILEE Valsartan (Valsartan 160 Mg Tablet) 160 mg PO DAILY@0900 [facility]; Protocol On Hold: 01/26/25 15:42 Last Admin: 01/26/25 08:08 Dose: 160 mg Documented By: SIENNA Warfarin Sodium (Warfarin Sodium 7.5 Mg Tablet) 7.5 mg PO TUTH@1800 [facility] Last Admin: 01/25/25 18:38 Dose: 7.5 mg Documented By: ASHLEY Warfarin Sodium (Warfarin Sodium 5 Mg Tablet) 5 mg PO SUMOWEFRSA@1800 [facility] Last Admin: 01/29/25 18:01 Dose: 5 mg Documented By: MARILEE Labs 01/30/25 06:59 01/30/25 06:59 Labs: Laboratory Results - last 24 hr 01/29/25 01/30/25 01/30/25 20:23 06:59 07:15 MCV 75.8 L MCH 23.3 L MCHC 30.7 L RDW 15.9 Plt Count 291 MPV 10.1 Immature Gran % (Auto) 0.3 Neut % (Auto) 61.4 Lymph % (Auto) 23.5 [place] % (Auto) 10.2 Eos % (Auto) 3.9 Baso % (Auto) 0.7 Lymph # (Auto) 1.4 [place] # (Auto) 0.6 Eos # (Auto) 0.2 Baso # (Auto) 0.0 Abs Immat Gran (auto) 0.02 Absolute Neuts (auto) 3.7 Absolute Nucleated RBC 0.000 Nucleated RBC % (auto) 0.0 PT 19.4 H D INR 1.7 H Anion Gap 14 Estim Creat Clear Calc 49.0 Estimated GFR > 60 POC Glucose 208 H 156 H Random Glucose 156 H Calcium 9.4 01/30/25 01/30/25 11:01 15:09 MCV MCH MCHC RDW Plt Count MPV Immature Gran % (Auto) Neut % (Auto) Lymph % (Auto) [place] % (Auto) Eos % (Auto) Baso % (Auto) Lymph # (Auto) [place] # (Auto) Eos # (Auto) Baso # (Auto) Abs Immat Gran (auto) Absolute Neuts (auto) Absolute Nucleated RBC Nucleated RBC % (auto) PT INR Anion Gap Estim Creat Clear Calc Estimated GFR POC Glucose 256 H 241 H Random Glucose Calcium Assessment and Plan (1) Acute on chronic heart failure with preserved ejection fraction (HFpEF): Status: Acute (2) History of mechanical aortic valve replacement: Status: Acute (3) Hypertension: Status: Acute (4) Anticoagulated on warfarin: Status: Acute (5) Lower GI bleed: Status: Acute (6) Acute CVA (cerebrovascular accident): Status: Acute (7) Encephalopathy: Status: Acute (8) Acute respiratory failure with hypoxia: Status: Acute (9) Aspiration pneumonia: Status: Acute Plan 79-year-old female with a past medical history significant for hypertension, diabetes, hyperlipidemia, HFpEF and mechanical aortic valve replacement on warfarin, who presented to the ED again due to weakness for the past few weeks with associated right lower extremity weakness, dizziness and gait instability, admitted with acute CVA left central semiovale with watershed infarct & right medial frontal lobe, complicated by inpatient aspiration PNA. Aspiration PNA Leukocytosis Noting elevated white cell count of 17.2; neutrophilic shift. White cells have improved - currently normalized. Patient is describing fatigability; no focal infective nidus based on symptoms. Chest x-ray revealing left lower lobe opacification - likely source No evidence of sepsis. PLAN - continue doxycycline 100mg BID PO - Encourage hydration and PO intake Acute CVA - left central semiovale - left-sided watershed infarct acute-subacute - right medial frontal lobe Presented with right lower extremity weakness, aphasia Head CT with acute infarction left centrum semiovale, recommend MRI CTA head/neck with dilated ascending aorta measuring 4.4 cm MRI head showed acute to subacute left-sided watershed infarct and additional infarct in medial right frontal region; also showed innumerable multifocal microhemorrhages ECHO 01/24 revealing abnormal mechanical AVR, severe mitral stenosis with possible mobile calcific mass. Patient had right-sided weakness in the setting of new leukocytosis and relative hypotension possibly 2/2 post stroke recrudescence PLAN - outpatient transesophageal echocardiography as per Cardiology - passed bedside swallow - continue high-intensity statin - monitor on telemetry - PT/OT/speech - no aspirin, continue Coumadin as per Neurology - Neurology following - discharge to short-term rehab - HOLD ANTIHYPERTENSIVES Mechanical AVR dysfunction Severe mitral stenosis; possible mobile calcific mass - outpatient transesophageal ECHO - follow up outpatient Cardiology Suprtherapeutic INR - INR has been supratherapeutic through most of stay; goal 2-3 - had warfarin at 2.5mg x2 days; resume normal dosing depending on INR - check PT/INR daily BELEN - cr 1.42-->1.06 after IVF in ED - RECURRENT WORSENING OF CREATININE FROM 0.9-1.3 - avoid nephrotoxins when possible - monitor BMP Anemia, microcytic - stable, at baseline HTN - HOLD ANTIHYPERTENSIVES - continue amlodipine, metoprolol, losartan DM - sliding scale insulin, Lantus - diabetic diet HLD - increased statin chronic HFpEF - no acute exacerbation - continue metoprolol and furosemide Constipation Functional Continue bowel regimen QUALITY METRICS - VTE: WARFARIN INR 2-3 - CODE STATUS: FULL CODE - DIET: DIABETIC - DISPOSITION: SHORT-TERM REHABILITATION. MEDICALLY READY FOR DISCHARGE Total time managing care of this patient today: 35 minutes. Quality Stroke Does the patient have a stroke diagnosis?: Yes Reason for No Anti-thrombotic by Day Two: N/A - Med Ordered (Pt on warfarin; no aspirin as per neurology) VTE Prior VTE?: No VTE Risk Level:: Medical - moderate - high VTE Device Contraindication: Treatment Not Indicated VTE Drug Contraindication: N/A - Med Ordered
[2025-01-30 20:00] VITALS: BP 135/66; PULSE 89; RESP 16; TEMP 36.1; O2SAT 94
[2025-01-30 20:55] LABS: Glucose, Whole Blood 167 mg/dL (60-115)
[2025-01-31] VITALS: BP 137/65; PULSE 72; RESP 18; TEMP 36.1; O2SAT 94
[2025-01-31 03:06] VITALS: BP 140/72; PULSE 75; RESP 18; TEMP 36.5; O2SAT 94
[2025-01-31 06:54] LABS: INTERNATIONAL NORM RATIO 1.8 (0.9-1.1); Prothrombin Time 21.2 SEC (10.9-12.4)
[2025-01-31 06:59] VITALS: BP 145/65; PULSE 76; RESP 16; TEMP 36.2; O2SAT 93
[2025-01-31 07:04] LABS: Glucose, Whole Blood 134 mg/dL (60-115)
[2025-01-31 09:20] VITALS: PULSE 113
[2025-01-31] MEDS: Insulin Glargine,Hum.rec.anlog 100 UNIT/ML 10 ML VIAL 21 UNIT SUBCUT (09:52)
[2025-01-31] MEDS: 0.9 % Sodium Chloride Flush 3 ML SYRINGE IVFLUSH (09:53)
[2025-01-31 11:15] VITALS: BP 132/60; PULSE 78; RESP 16; TEMP 36.1; O2SAT 96
[2025-01-31 11:18] LABS: Glucose, Whole Blood 325 mg/dL (60-115)
--- NOTE | 2025-01-31 11:24 | MHC.CM.PN ---
Second IMM given 01/31. Pt is medically cleared for discharge to [facility]. Insurance auth obtained. Pt will transport there via [facility]. This CM met with pt with the assistance of the [employer] via [employer] to explain discharge details. Pt aware and in agreement with the discharge plan. Pts daughter/HCP Paige was also called and notified of her mothers discharge.
--- NOTE | 2025-01-31 12:27 | PM.DS ---
DS: Providers Provider Date of Service: 01/31/25 Date of admission: 01/21/25 23:28 Date of discharge: 01/31/25 Primary care physician: Paco Schuler MD Consults: 01/21/25 23:47 Consult to Neurology Routine Consulting Provider: [facility] Reason for consultation: ?CVA Has provider been notified: No 01/24/25 08:00 Consult to Cardiology Routine Consulting Provider: [facility] Reason for consultation: Acute stroke, [facility] that was abdnormal last echo Attending physician on discharge: Elda Crocker DS: Diagnosis Discharge Diagnosis (1) Acute on chronic heart failure with preserved ejection fraction (HFpEF): Status: Acute (2) History of mechanical aortic valve replacement: Status: Acute (3) Hypertension: Status: Acute (4) Anticoagulated on warfarin: Status: Acute (5) Lower GI bleed: Status: Acute (6) Acute CVA (cerebrovascular accident): Status: Acute (7) Encephalopathy: Status: Acute (8) Acute respiratory failure with hypoxia: Status: Acute (9) Aspiration pneumonia: Status: Acute DS: Summary Hospital Course Hospital Course: 79-year-old female with a past medical history significant for hypertension, diabetes, hyperlipidemia, HFpEF and mechanical aortic valve replacement on warfarin, who presented to the ED again due to weakness for the past few weeks with associated right lower extremity weakness, dizziness and gait instability, admitted with acute CVA left central semiovale with watershed infarct & right medial frontal lobe, complicated by inpatient aspiration PNA. She presented to the ED again due to weakness for the past few weeks with associated right lower extremity weakness, dizziness and gait instability. The pt has a difficult time giving a history even with the interperter, therefore, a majority of the history is from the ED provider. The patient's son's reported that she seemed confused with some possible aphasia. She was seen in the emergency department on 01/17/2025 with a negative workup with similar symptoms in the patient followed up with the primary care physician afterwards without any additional findings. The patient states that her right foot is now weak and not moving as much due to weakness and pain. She has confusion with her words but is oriented. Her blood sugars have also been more elevated recently per her family. Acute CVA - left central semiovale - left-sided watershed infarct acute-subacute - right medial frontal lobe Presented with right lower extremity weakness, aphasia Head CT with acute infarction left centrum semiovale, recommend MRI CTA head/neck with dilated ascending aorta measuring 4.4 cm MRI head showed acute to subacute left-sided watershed infarct and additional infarct in medial right frontal region; also showed innumerable multifocal microhemorrhages ECHO 01/24 revealing abnormal mechanical AVR, severe mitral stenosis with possible mobile calcific mass. Patient had right-sided weakness in the setting of new leukocytosis and relative hypotension possibly 2/2 post stroke recrudescence Passed swallow evaluation Outpatient [facility] with Cardiology continue Coumadin as per Neurology Aspirin was held as inpatient in the setting of supratherapeutic INR, however this was resumed once INR returned to 2-3. Aspiration PNA - RESOLVED Leukocytosis Noting elevated white cell count of 17.2; neutrophilic shift. White cells have improved - currently normalized. Patient is describing fatigability; no focal infective nidus based on symptoms. Chest x-ray revealing left lower lobe opacification - likely source No evidence of sepsis. Mechanical AVR dysfunction Severe mitral stenosis; possible mobile calcific mass ECHO conducted as inpatient Follow up outpatient Cardiology for MEGAN BPPV right-sided Orthostatic hypotension Dehydration Patient has been noted to have episodes of dizziness, as well as intermittent weakness with rapid change in position. It is also noted the patient has tinnitus right ear, as well as dizziness with right-sided gaze; consistent with possible BPPV Symptoms could also be 2/2 recent stroke. No evidence of symptom recrudescence. - continue meclizine 25 mg t.i.d. - encourage hydration - low-salt diet - outpatient vestibular rehab BELEN Patient suffered with prerenal acute kidney injury in the setting of dehydration. Creatinine increased to 1.42 at max during inpatient stay Baseline 1. Currently stable Status at Discharge Cognitive/behavioral status at discharge: Alert and oriented to person place time and situation Functional status at discharge: uses cane/walker Time Attestation Total time managing care of this patient today: 45 mintues. Discharge Coordination Time (in mins): 15 Quality: Safe Use of Opioids Does Pt have an Active Cancer Diagnosis on the Problem List?: No Quality: Stroke Does the patient have a stroke diagnosis?: Yes Reason for No Anti-thrombotic at DC: N/A - Med Ordered Reason for No Anticoagulant at DC: N/A - Med Ordered Reason Not Initiating IV-Tpa: N/A - Med Ordered Reason for No Anti-thrombotic by Day Two: N/A - Med Ordered Reason for No Statin at DC: N/A - Med Ordered Physical Exam Exam: Exam: General: A&O x3, oriented to time place person and situation, comfortable, no pain Cardiac: S1, S2 auscultated with no S3/4, no MRG. Well perfused. Orthostatics negative. Respiratory: Normal breath sounds auscultated throughout all lung zones, without wheezing, rales. Normal rate. GI/ : No abdominal pain on palpation, no masses or distentions. MSK: Normal ambulation without pain at bony prominences or musculature Neurological: Normal neurological examination on overview, without obvious CN II-XII abnormalities. Vital Signs: Vital Signs: Last Vital Signs Temp 97.0 F 01/31/25 11:15 Pulse 78 01/31/25 11:15 Resp 16 01/31/25 11:15 BP 132/60 01/31/25 11:15 Pulse Ox 96 01/31/25 11:15 O2 Del Method Room Air 01/31/25 11:15 BMI result Body Mass Index 31.9 DS: Data Data Completed and Pending Completed studies during hospitalization [Text1]: Procedures Control Bleeding in Gastrointestinal Tract, Via Natural or Artificial Opening Endoscopic (07/16/24) Destruction of Ascending Colon, Via Natural or Artificial Opening Endoscopic (07/16/24) Excision of Ascending Colon, Via Natural or Artificial Opening Endoscopic, Diagnostic (10/18/24) Excision of Cecum, Via Natural or Artificial Opening Endoscopic, Diagnostic (10/18/24) Excision of Stomach, Pylorus, Via Natural or Artificial Opening Endoscopic, Diagnostic (10/18/24) Transfusion of Nonautologous Red Blood Cells into Peripheral Vein, Percutaneous Approach (07/16/24) Labs on day of discharge: Laboratory Results - last 24 hr 01/30/25 01/30/25 01/31/25 15:09 20:51 06:14 Hold Purple Top SEE NOTE PT 21.2 H INR 1.8 H POC Glucose 241 H 167 H 01/31/25 01/31/25 06:58 11:14 Hold Purple Top PT INR POC Glucose 134 H 325 H Discharge Plan Discharge Anticipated Discharge Date/Time: 01/31/25 12:33 Patient Disposition: Xfer Inpatient Rehab Fac Discharge Diagnosis: Acute CVA ; admission c/b aspiration pneumonia with prerenal acute kidney injury in the setting of dehydration Referrals: [facility] [Outside] - 1 Day Referral Note: ACUTE REHAB Paco Schuler MD [Primary Care Provider, Internal Medicine] - 1 Week Discharge Medications: New doxycycline monohydrate 100 mg Capsule 100 mg PO Q12H 7 Days Qty: 14 0RF cephalexin 500 mg capsule 500 mg PO Q12H 7 Days Qty: 14 0RF atorvastatin 80 mg Tablet 80 mg PO DAILY 30 Days Qty: 30 0RF aspirin 81 mg Tablet,Chewable 81 mg PO DAILY 30 Days Qty: 30 0RF meclizine 25 mg Tablet 25 mg PO TID 9 Days Qty: 27 0RF Continued metformin 850 mg tablet 850 mg PO DAILY@2100 metoprolol tartrate 50 mg tablet 50 mg PO BID valsartan 160 mg tablet 160 mg PO DAILY@0900 insulin glargine [Lantus Solostar U-100 Insulin] 100 unit/mL (3 mL) insulin pen 30 unit subcut DAILY@0900 warfarin 5 mg Tablet 7.5 mg PO TUTH@1800 Rx Instructions: in the evening pantoprazole 40 mg tablet,delayed release (DR/EC) 40 mg PO DAILY@0630 warfarin 5 mg Tablet 5 mg PO SUMOWEFRSA@1800 amlodipine 5 mg Tablet 5 mg PO DAILY Qty: 90 0RF Protocol: Hold for SBP< HOLD for SBP < : 90 estradiol 0.01 % (0.1 mg/gram) cream 1 appl vaginal MOWEFR empagliflozin 10 mg tablet 10 mg PO DAILY Qty: 30 0RF furosemide 20 mg tablet 20 mg PO DAILY Discontinued atorvastatin 40 mg tablet 40 mg PO DAILY@0900 Discharge Orders: Discharge Order (Routine); Ordered 01/31/25 Ordered By: Elda Crocker Activity on Discharge: As tolerated Stand Alone Forms: Patient Portal Discharge page Print Language: Iranian Care Plan Goals: Follow up outpatient neurology Follow up PCP Follow up [facility] for outpatient transesophageal echocardiography Continue vestibular rehabilitation Continue outpatient physical therapy Health Concerns: Mechanical AVR on warfarin, INR goal 2-3 Mitral valve calcification with possible vegetation Acute CVA History of GI bleed Aspiration pneumonia during inpatient stay with prerenal BELEN BPPV with dizziness Plan of Treatment: As above Assessment: Patient is currently hemodynamically stable. She has recovered well. She has intermittent episodes of dizziness with tinnitus, suggestive of BPPV. Further investigation can be conducted with MRI brain outpatient setting
--- NOTE | 2025-01-31 12:40 | P.F2F_ITS ---
Service Date Service Date: 01/31/25 Encounter Date of encounter: 01/31/25 Reasons for Services Signs and symptoms assessed: Acute CVA, dizziness, physical deconditioning in the setting of prolonged hospital stay Reason for long-term: neurological assessment, diabetic teaching, medication management, medication treatment and teach disease management Reason for physical therapy: home safety and mobility, therapeutic exercises, restore joint function, gait/transfer training, assess need for DME, ADL training and energy conservation Reason for occupational therapy: home safety and mobility, therapeutic exercises, restore joint function, gait/transfer training, assess need for DME, ADL training and energy conservation Homebound: Leaving the home is medically contraindicated at this time without the asist of a device and/or another person due th the listed conditions above and below. Reason homebound: unsteady gait / fall risk, fall risk related to blood pressure changes, pain with ambulation and poor balance / fall risk Certification: Based on the above findings, I certify that this patient is confined to the home and needs intermittent long-term care, physical therapy and/or speech therapy, or continues to need occupational therapy. The patient is under my care, and I have initiated the establishment of the plan of care. The patient will be followed by a physician who will periodically review the plan of care. Time Spent With Patient Time: Total time managing care of this patient today 20 minutes.
== END 2025-01-31 13:53 | DRG 64 ==
LOC: HO.ED 23:31 → HO.EDOVER 23:50 → HO.IMC 01-22 11:54
PROVIDERS: Internal Medicine; Physician Assistant Medical; Student in an Organized Health Care Education/Training Program; Admitting Provider Physician Assistant; Emergency Provider Emergency Medicine; PCP Internal Medicine; Visit Provider Hospitalist
DX: I63.49 Cerebral infarction due to embolism of other cerebral artery (principal); J69.0 Pneumonitis due to inhalation of food and vomit; N17.9 Acute kidney failure, unspecified; N39.0 Urinary tract infection, site not specified; T82.857A Stenosis of other cardiac prosthetic devices, implants and grafts, initial encounter; I50.32 Chronic diastolic (congestive) heart failure; I11.0 Hypertensive heart disease with heart failure; R29.700 NIHSS score 0; E11.9 Type 2 diabetes mellitus without complications; D50.9 Iron deficiency anemia, unspecified; G83.11 Monoplegia of lower limb affecting right dominant side; R79.1 Abnormal coagulation profile; H81.11 Benign paroxysmal vertigo, right ear; R47.01 Aphasia; H93.11 Tinnitus, right ear; Y71.2 Prosthetic and other implants, materials and accessory cardiovascular devices associated with adverse incidents; K59.04 Chronic idiopathic constipation; E86.0 Dehydration; I95.1 Orthostatic hypotension; E78.5 Hyperlipidemia, unspecified; Z20.822 Contact with and (suspected) exposure to COVID-19; Z79.4 Long term (current) use of insulin; Z79.01 Long term (current) use of anticoagulants; Z79.84 Long term (current) use of oral hypoglycemic drugs; Z79.82 Long term (current) use of aspirin; Z79.899 Other long term (current) drug therapy
CPT/HCPCS: 36415; 70450; 70496; 70498; 70551; 71045; 74176; 80048; 80053; 80061; 81001; 82607; 82746; 82947; 83605; 83735; 84145; 84443; 84484; 85025; 85027; 85610; 86780; 87040; 87086; 87635; 92507; 93005; 93306; 97110; 97116; 97162; 97166; 97530; 97535; 99285; J0696; J7120; Q9957; Q9967

== ENCOUNTER → 2025-01-21 20:13 | Outpatient (BNV) | payer MEDICARE, SELFPAY | PROVIDERS: Emergency Provider Emergency Medicine; PCP Internal Medicine; Visit Provider Radiology Diagnostic Radiology | DX: I63.9 Cerebral infarction, unspecified (principal) | CPT/HCPCS: 70496; 70498; 74176 ==

== ENCOUNTER 2025-01-21 23:28 | Outpatient (BNV) | payer MEDICARE, SELFPAY | END 2025-01-26 23:54 | PROVIDERS: Admitting Provider Physician Assistant; Emergency Provider Emergency Medicine; PCP Internal Medicine; Visit Provider Internal Medicine Cardiovascular Disease | DX: I44.0 Atrioventricular block, first degree (principal); I49.9 Cardiac arrhythmia, unspecified; I44.7 Left bundle-branch block, unspecified | CPT/HCPCS: 93010 ==

== ENCOUNTER 2025-01-21 23:28 | Outpatient (BNV) | payer MEDICARE, SELFPAY | END 2025-01-22 12:04 | PROVIDERS: Admitting Provider Physician Assistant; Emergency Provider Emergency Medicine; PCP Internal Medicine; Visit Provider Radiology Diagnostic Radiology | DX: I63.512 Cerebral infarction due to unspecified occlusion or stenosis of left middle cerebral artery (principal) | CPT/HCPCS: 70551 ==

== ENCOUNTER 2025-01-21 23:28 | Outpatient (BNV) | payer MEDICARE, SELFPAY | END 2025-01-24 07:00 | PROVIDERS: Admitting Provider Physician Assistant; Emergency Provider Emergency Medicine; PCP Internal Medicine; Visit Provider Internal Medicine Cardiovascular Disease | DX: I34.81 Nonrheumatic mitral (valve) annulus calcification (principal); I77.810 Thoracic aortic ectasia | CPT/HCPCS: 93306 ==

== ENCOUNTER 2025-01-21 23:28 | Outpatient (BNV) | payer MEDICARE, SELFPAY | END 2025-01-26 12:12 | PROVIDERS: Admitting Provider Physician Assistant; Emergency Provider Emergency Medicine; PCP Internal Medicine; Visit Provider Radiology Diagnostic Radiology | DX: I63.523 Cerebral infarction due to unspecified occlusion or stenosis of bilateral anterior cerebral arteries (principal); J98.11 Atelectasis | CPT/HCPCS: 70450; 71045 ==

== ENCOUNTER 2025-01-21 23:28 | Outpatient (BNV) | payer MEDICARE, SELFPAY | END 2025-01-22 | PROVIDERS: Admitting Provider Physician Assistant; Emergency Provider Emergency Medicine; PCP Internal Medicine; Visit Provider Internal Medicine Cardiovascular Disease | DX: I44.0 Atrioventricular block, first degree (principal); I49.3 Ventricular premature depolarization; I44.7 Left bundle-branch block, unspecified | CPT/HCPCS: 93010 ==

== ENCOUNTER → 2025-01-21 23:28 | Outpatient (BNV) | payer MEDICARE, SELFPAY | PROVIDERS: Admitting Provider Physician Assistant; Emergency Provider Emergency Medicine; PCP Internal Medicine; Visit Provider Psychiatry & Neurology Neurology | DX: R51.9 Headache, unspecified (principal) | CPT/HCPCS: 99222; 99232 ==

== ENCOUNTER → 2025-01-21 23:28 | Outpatient (BNV) | payer MEDICARE, SELFPAY | PROVIDERS: Admitting Provider Physician Assistant; Emergency Provider Emergency Medicine; PCP Internal Medicine; Visit Provider Student in an Organized Health Care Education/Training Program | DX: I63.9 Cerebral infarction, unspecified (principal) | CPT/HCPCS: 99223; 99233 ==

== ENCOUNTER → 2025-01-21 23:28 | Outpatient (BNV) | payer MEDICARE, SELFPAY | PROVIDERS: Admitting Provider Physician Assistant; Emergency Provider Emergency Medicine; PCP Internal Medicine; Visit Provider Internal Medicine Cardiovascular Disease | DX: I63.9 Cerebral infarction, unspecified (principal) | CPT/HCPCS: 99222 ==

== ENCOUNTER 2025-04-27 18:04 | Inpatient (IN) | payer MEDICARE, SELFPAY ==
--- OUTSIDE RECORDS SUMMARY | 2025-04-22 23:59 | XMS_ITS | Continuity of Care Document ---
Author Organization [facility] Address [address] [place] [id number] [facility] Name Relationship Address Phone GARCIA SCHUSTER Personal Relationship Unknown Un available MARIELY, FARRAH child Unknown Unavailable GARCIA SCHUSTER Personal Relationship Unknown Un available MARIELY, ANTOINO spouse Unknown Unavailable MARIELY, DARSHAN child Unknown Unavailable Care Team Providers Care Hospice Clinical Manager Name Role Phone Paco Schuler MD Primary Care Physician [phone] [id number] Date(s): 03/23/25 - 04/22/25 [facility] [address] [place] [id number] Attending Physician: Brian Benitez Admitting Physician: AdmtrBrian Referring Physician: Admtr [id number] Encounter Type: Triage Allergies, Adverse Reactions, Alerts No Known Allergies Immunizations Given and Recorded Vaccine Date Status Refusal Reason influenza virus vaccine, inactivated 04/03/24 Jimenez rded influenza virus vaccine, inactivated 03/16/23 Jimenez rded influenza virus vaccine, inactivated 03/22/22 Jimenez rded influenza virus vaccine, inactivated 02/26/21 Jimenez rded influenza virus vaccine, inactivated 01/22/20 Jimenez rded influenza virus vaccine, inactivated 03/02/19 Jimenez rded influenza virus vaccine, inactivated 03/24/18 Jimenez rded influenza virus vaccine, inactivated 02/27/17 Jimenez rded influenza virus vaccine, inactivated 03/07/16 Jimenez rded influenza virus vaccine, inactivated 1 04/06/07 Gi hardik influenza virus vaccine, inactivated 2 04/01/06 Gi hardik influenza virus vaccine, inactivated 03/27/05 Give n SARS-CoV-2(COVID-19)mRNA-LNP vac([id number]) 04/03/24 Recorded SARS-CoV-2(COVID-19)mRNA-LNP vac([id number]) 04/07/23 Recorded pneumococcal 20-valent conjugate vaccine 04/07/23 Recorded [id number] 12y+ bivalent booster vax 04/04/22 Recorded SARS-CoV-2 mRNA ([id number]) vax 10/07/21 Recorded SARS-CoV-2 (COVID-19) mRNA BNT-162b2 vac 06/13/21 Recorded SARS-CoV-2 (COVID-19) mRNA BNT-162b2 vac 09/05/20 Recorded SARS-CoV-2 (COVID-19) mRNA BNT-162b2 vac 08/05/20 Recorded zoster vaccine, inactivated 04/01/20 Recorded zoster vaccine, inactivated 01/22/20 Recorded pneumococcal 13-valent vaccine 10/10/17 Given Pneumococcal Vaccine (oldterm) 3 04/06/07 Given tetanus-diphtheria toxoids (Td) 06/25/06 Given 1Result Comment: lot [id number] exp-11/23/07 2Admin Note: VIS GIVEN NO EGG ALLERGY 3Result Comment: information sheets provided Medications acetaminophen 325 mg oral tablet 650 mg, By Mouth, Every 6 hours, Refills 0, Maintenance, 07/23/19 7:58:00 AM EST Start Date: 07/23/19 Status: Ordered Medication Dispense Status: Completed Total Allowed Fills: 1 Fills Dispensed: 0 amLODIPine 5 mg oral tablet 10 mg, 2, tablet, By Mouth, Daily, # 30 tablet, Refills 0, Maintenance, 10/09/17 3:15:10 PM EDT Start Date: 10/09/17 Status: Ordered Medication Dispense Status: Completed Quantity: 30.0 Unit: tablet Total Allowed Fills: 1 Fills Dispensed: 0 atorvastatin 40 mg oral tablet 1 tablet = 40 mg, By Mouth, Daily, # 30 tablet, 0 Refills, Maintenance, Tablet Start Date: 10/09/17 Status: Ordered Medication Dispense Status: Completed Quantity: 30.0 Unit: tablet Total Allowed Fills: 1 Fills Dispensed: 0 enoxaparin 80 mg/0.8 mL injectable solution = 80 mg, Subcutaneous Infusion, Every 12 hours, 0 Refills, Maintenance, 07/28/24 8:59:00 AM EST, Partial fill upon patient request if the prescription is for a schedule II opioid drug. Start Date: 07/28/24 Status: Ordered Medication Dispense Status: Completed Total Allowed Fills: 1 Fills Dispensed: 0 furosemide 40 mg oral tablet 40 mg, 1, tablet, By Mouth, Daily, # 30 tablet, Refills 0, Maintenance, 06/23/24 1:14:00 AM EST, Partial fill upon patient request if the prescription is for a schedule II opioid drug. Start Date: 06/23/24 Status: Ordered Medication Dispense Status: Completed Quantity: 30.0 Unit: tablet Total Allowed Fills: 1 Fills Dispensed: 0 Lantus Inj = 36 units, Subcutaneous Injection, Daily at bedtime, 0 Refills, Maintenance, 06/09/20 7:38:00 AM EST, Injection, Partial fill upon patient request if the prescription is for a schedule II opioid drug. Start Date: 06/09/20 Status: Ordered Medication Dispense Status: Completed Total Allowed Fills: 1 Fills Dispensed: 0 metFORMIN 850 mg oral tablet 1 tablet = 850 mg, By Mouth, Daily in AM, # 180 tablet, 0 Refills, Maintenance, 10/09/17 3:14:19 PM EDT, Tablet Start Date: 10/09/17 Status: Ordered Medication Dispense Status: Completed Quantity: 180.0 Unit: tablet Total Allowed Fills: 1 Fills Dispensed: 0 metoprolol 50 mg oral tablet 50 mg, 1, tablet, By Mouth, 2 times a day, # 180 tablet, 3 Refills Start Date: 06/25/06 Stop Date: 09/23/06 Status: Ordered Medication Dispense Status: Completed Quantity: 180.0 Unit: tablet Total Allowed Fills: 4 Fills Dispensed: 0 mirtazapine 15 mg oral tablet 0.5 tablet = 7.5 mg, By Mouth, Daily, # 15 tablet, 0 Refills, Maintenance, 07/28/24 9:00:00 AM EST, Tablet, Partial fill upon patient request if the prescription is for a schedule II opioid drug. Start Date: 07/28/24 Status: Ordered Medication Dispense Status: Completed Quantity: 15.0 Unit: tablet Total Allowed Fills: 1 Fills Dispensed: 0 Pantoprazole Daily, 0 Refills, Maintenance, 08/09/24 8:39:00 AM EDT Start Date: 08/09/24 Status: Ordered Medication Dispense Status: Completed Total Allowed Fills: 1 Fills Dispensed: 0 pioglitazone 30 mg oral tablet 1 tablet = 30 mg, By Mouth, Daily, # 30 tablet, 0 Refills, Maintenance, 10/09/17 3:14:38 PM EDT, Tablet Start Date: 10/09/17 Status: Ordered Medication Dispense Status: Completed Quantity: 30.0 Unit: tablet Total Allowed Fills: 1 Fills Dispensed: 0 Valsartan By Mouth, 0 Refills, Maintenance, 08/09/24 8:37:00 AM EDT, Partial fill upon patient request if the prescription is for a schedule II opioid drug. Start Date: 08/09/24 Status: Ordered Medication Dispense Status: Completed Total Allowed Fills: 1 Fills Dispensed: 0 warfarin 1 mg oral tablet See Instructions, Take 1-10 tablet By Mouth Daily as instructed by [facility]. Resume home dose of Coumadin after 30 days, # 150 tablet, 0 Refills, Maintenance, 06/10/20 10:50:00 AM EST, Tablet, [facility] 3, Partial fill upon patient request if the prescription is for a schedule II opioid drug., 149.86, cm, 06/10/20 7:15:00 EST, Height, 64.6, kg, 06/09/20 9:10:00 EST, Dry Weight Start Date: 06/10/20 Status: Ordered Medication Dispense Status: Completed Quantity: 150.0 Unit: tablet Total Allowed Fills: 1 Fills Dispensed: 0 Problem List Condition Confirmation Course Effective Dates Status Health Status Informant COVID-19 1 Confirmed 06/23/24 Active Diabetes Confirmed Active Esophageal reflux Confirmed Active 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 History of mechanical aortic valve replacement Confirmed Active Hx of colonic polyps Confirmed Active Hypercholesterolemia Confirmed Active Hypertension Confirmed Active 1Problem added by Discern Expert Social History Social History Type Response Smoking Status Never (less than 100 in lifetime) entered on: 06/09/20 Sex Sex Representation Female (finding) Patient Care team information Care Team Personnel Name: Linda Andre RN Position: [facility] RN Member Role: Primary Care Nurse Name: Pat Saleh Position: S RN Member Role: Primary Care Nurse Name: Kina Escobedo RN Position: S RN Member Role: Primary Care Nurse Name: Paco Schuler MD Position: [facility] Physician - Primary Care Member Role: PCP Address: [address] [place] [address] Telecom: Care Team Related Persons Name: MALIK SCHUSTER Name: FARRAH SCHUSTER Name: DARSHAN SCHUSTER Insurance Providers Guarantor name: TIM SCHUSTER [facility] Plan Information #: 1 Payer: [employer] ADV HMO Payer Identifier: NA Member Number: [id number] Group Number: [id number] Subscriber Identifier: NA Relationship to Subscriber: self Coverage Type: Medicare HMO Coverage Verification Date: NA Telecom: NA Address: NA
--- OUTSIDE RECORDS SUMMARY | 2025-04-22 23:59 | XMS_ITS | Continuity of Care Document ---
Author Organization [facility] Address [address] [place] [id number] [facility] Name Relationship Address Phone GARCIA SCHUSTER Personal Relationship Unknown Un available MARIELY, FARRAH child Unknown Unavailable GARCIA SCHUSTER Personal Relationship Unknown Un available MARIELY, ANTOINO spouse Unknown Unavailable MARIELY, DARSHAN child Unknown Unavailable Care Team Providers Care Manager Assurance Name Role Phone Paco Schuler MD Primary Care Physician [phone] Encounter [facility] NBR [id number] Date(s): 12/23/24 - 04/22/25 [facility] [address] [place] [id number] Attending Physician: Lachelle Baca MD Referring Physician: Paco Schuler MD Encounter Type: Pre Office Visit Allergies, Adverse Reactions, Alerts No Known Allergies [...] virus vaccine, inactivated 03/27/05 Give n SARS-CoV-2(COVID-19)mRNA-LNP vac([id number]) 04/03/24 Recorded SARS-CoV-2(COVID-19)mRNA-LNP vac([id number]) 04/07/23 Recorded pneumococcal 20-valent conjugate vaccine 04/07/23 Recorded [id number] 12y+ bivalent booster vax 04/04/22 Recorded SARS-CoV-2 mRNA ([id number]) vax 10/07/21 Recorded SARS-CoV-2 (COVID-19) mRNA BNT-162b2 vac 06/13/21 Recorded SARS-CoV-2 (COVID-19) mRNA BNT-162b2 vac 09/05/20 Recorded SARS-CoV-2 (COVID-19) mRNA BNT-162b2 vac 08/05/20 Recorded zoster vaccine, inactivated 04/01/20 Recorded zoster vaccine, inactivated 01/22/20 Recorded pneumococcal 13-valent vaccine 10/10/17 Given Pneumococcal Vaccine (oldterm) 3 04/06/07 Given tetanus-diphtheria toxoids (Td) 06/25/06 Given 1Result Comment: lot [id number] exp-11/23/07 2Admin Note: VIS GIVEN NO EGG [...] Refills, Maintenance, 06/10/20 10:50:00 AM EST, Tablet, [facility] 3, Partial fill upon patient request if [...] Diabetes Confirmed Active Esophageal reflux Confirmed Active 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 History of mechanical aortic valve replacement Confirmed Active Hx of colonic polyps Confirmed Active Hypercholesterolemia Confirmed Active Hypertension Confirmed Active 1Problem added by Discern Expert Social History Social History Type Response Smoking Status Never (less than 100 in lifetime) entered on: 06/09/20 Sex Sex Representation Female (finding) Patient Care team information Care Team Personnel Name: Linda Andre RN Position: [facility] RN Member Role: Primary Care Nurse Name: Pat Saleh Position: S RN Member Role: Primary Care Nurse Name: Kina Escobedo RN Position: S RN Member Role: Primary Care Nurse Name: Paco Schuler MD Position: [facility] Physician - Primary Care Member Role: PCP Address: [address] [place] [address] Telecom: Care Team Related Persons Name: MALIK SCHUSTER Name: FARRAH SCHUSTER Name: DARSHAN SCHUSTER Insurance Providers Guarantor name: TIM SCHUSTER [facility] Plan Information #: 1 Payer: [employer] MEDIC[employer] ADV HMO Payer Identifier: NA Member Number: [id number] Group Number: [id number] Subscriber Identifier: [id number] Relationship to Subscriber: self Coverage Type: Medicare HMO Coverage Verification Date: NA Telecom: NA Address:
[2025-04-27] VITALS (8 sets, daily range): BP systolic 109–146; BP diastolic 48–95; PULSE 64–115; RESP 16–22; TEMP 37.2–38.4; O2SAT 91–95; BMI 24.8
--- NOTE | 2025-04-27 | ECG_ITS ---
Test Reason : TACHYCARDIA Blood Pressure : */* mmHG Vent. Rate : 106 BPM Atrial Rate : * BPM P-R Int : * ms QRS Dur : 148 ms QT Int : 350 ms P-R-T Axes : * 22 159 degrees QTcB Int : 464 ms Normal sinus rhythm with frequent Premature atrial complexes Left bundle branch block Abnormal ECG When compared with ECG of 26-Jan-2025 23:54, Premature atrial complexes Present Referred By: Jeremi Andrade Electronically Signed By: DANIEL COOK
--- NOTE | ~2025-04-27 | XR_ITS ---
CLINICAL HISTORY: Monitor for constipation 1 view abdomen Comparison: CT/REG/SR - CT ABDOMEN PELVIS W IV CON - 04/27/25 21:18 EST Findings: Lung bases are clear. No pneumoperitoneum or pneumatosis. Normal fecal volume. Normal bowel-gas pattern In the region of the left upper abdomen there is a 9 mm calcification. No corresponding abnormality seen on recent abdomen and pelvis CT, this may be structure external to the patient or intraluminal structure. Two GI clips are again seen, 1 in the region of the stomach in the other in the region of the cecum. No acute fractures. IMPRESSION: The bowel gas pattern is within normal limits. Normal fecal volume. This document has been electronically signed by: Memo Posada MD on 05/01/2025 16:24:04
--- NOTE | ~2025-04-27 | XR_ITS ---
CLINICAL HISTORY: fever 1 view chest x-ray. Comparison: 01/26/2025 Findings: Heart size is enlarged. There is a prosthetic heart valve. Pulmonary vasculature is prominent. No acute fracture. Median sternotomy wires are vertically aligned. Left shoulder arthroplasty is incompletely visualized. Impression: Cardiomegaly . No pulmonary edema. No consolidation. This document has been electronically signed by: Chevy Bullock MD on 04/27/2025 19:08:43
--- NOTE | ~2025-04-27 | CT_ITS ---
CLINICAL HISTORY: decutibus ulcer, access for osteomyelitis CT abdomen and pelvis with contrast Comparison: CT/REG/SR - CT ABDOMEN PELVIS WO IV CON - 01/21/25 20:31 EDT Findings: No consolidation or effusion. The heart appears mildly enlarged. Possible small gallstone within the gallbladder lumen. No CT evidence for acute cholecystitis. Indeterminate 1.9 cm right adrenal nodule. The solid organs are otherwise within normal limits. No hydronephrosis or hydroureter. No bowel obstruction, pneumoperitoneum, or pneumatosis. There is mildly limited evaluation of the stomach related to gastric underdistention. Ugerxcnd-ki-nvagg rectal stool burden present with perirectal edema. The uterus is surgically absent. Mildly increased attenuation identified dependently within the bladder lumen. There is borderline bladder wall thickening. Normal appendix. No acute fracture visualized. Multifocal areas of decreased attenuation are redemonstrated within thoracolumbar vertebral bodies, some of which appear to represent cavernous hemangiomas. These findings are incompletely evaluated on the current exam. Increased attenuation identified within the soft tissues posteriorly at the midline at the level of the coccyx. There is a pocket of gas/debris deep to the skin surface in this region, measuring up to 1.6 x 1.9 x 1.2 cm in maximum dimensions. There is cortical irregularity along the posterior margin of the coccyx at this site. IMPRESSION: 1. Mtxbkxio-zj-ljiay rectal stool burden with perirectal edema, suggesting stercoral colitis. No bowel obstruction. 2. Decubitus ulcer visualized posteriorly at the midline adjacent to the coccyx with a 1.6 x 1.9 x 1.2 cm collection of gas and debris just deep to the skin surface in this region. This may represent sequela of infection and/or packing material. Clinical correlation is advised. There is cortical irregularity involving the posterior aspect of the coccyx at this level, suggesting sequela of osteomyelitis. 3. Mildly increased attenuation identified dependently within the bladder lumen. This may represent debris, blood products, and/or small stones. Recommend correlation with urinalysis results for further evaluation. 4. Borderline bladder wall thickening. This is nonspecific and may be related to chronic bladder outlet obstruction or mild cystitis. 5. Possible small gallstone within the gallbladder lumen. No CT evidence for acute cholecystitis. 6. Mild cardiomegaly. This document has been electronically signed by: Matthew Horne MD on 04/27/2025 22:25:56
--- NOTE | ~2025-04-27 | XR_ITS ---
CLINICAL HISTORY: decubitus ulcer, osteomyelitis? . 3 views lumbar spine Comparison: None Findings: There is mild scoliosis. There is mild deformity of L5 vertebral body due to old or recent mild compression fracture. Suspect grade 1 spondylolisthesis and advanced disc space narrowing at L5-S1. Sacroiliac joints unremarkable Impression: Advanced narrowing of the L5-S1 disc space with malalignment due to scoliosis and/or grade 1 spondylolisthesis partially obscured by iliac crest.. Spondylolysis may also be present involving the posterior L4 vertebral body partially obscured by the iliac crest and extensive facet hypertrophy. Consider nonurgent CT for more definitive diagnostic evaluation. This document has been electronically signed by: Chevy Bullock MD on 04/27/2025 19:39:26
[2025-04-27 18:38] LABS: MANUAL DIFF FLAG NO
[2025-04-27] MEDS: Lactated Ringers 1,000 ML 999 ML IV (18:40)
[2025-04-27 18:55] LABS: Alanine Aminotransferase 10 U/L (0-31); Albumin Level 3.4 g/dL (3.5-5.0); Alkaline Phosphatase 100 U/L (39-117); Anion Gap 12 (12-20); Aspartate Amino Transferase 25 U/L (5-31); Blood Urea Nitrogen 28 mg/dL (9-16); Calcium 9.4 mg/dL (8.4-10.2); Carbon Dioxide 28 mmol/L (22-29); Chloride 104 mmol/L (96-108); Creatinine Clr Calc Pharmacy 44.9; Estimated Glomerular Filt Rate 60; Lipase 29 U/L (8-78); Potassium 4.1 mmol/L (3.3-5.1); Sodium 140 mmol/L (135-145); Total Protein 7.2 g/dL (6.5-8.0)
--- NOTE | 2025-04-27 18:58 | ED.GENADULT ---
HPI - General Adult General Chief complaint: General Medical Stated complaint: fever Time Seen by Provider: 04/27/25 18:27 Source: patient, family ( Son) and traveling inventory associate Mode of arrival: ambulatory Limitations: no limitations History of Present Illness ED Provider: DR. 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 Related Data Home Medications ?Medication ?Instructions ?Recorded ?Confirmed insulin glargine 100 unit/mL (3 30 unit subcut DAILY@0906/12/24 01/22/25 mL) subcutaneous pen (Lantus Solostar U-100 Insulin) metformin 850 mg tablet 850 mg PO DAILY@2100 06/12/24 01/22/25 metoprolol tartrate 50 mg tablet 50 mg PO BID 06/12/24 01/22/25 valsartan 160 mg tablet 160 mg PO DAILY@0906/12/24 01/22/25 warfarin 5 mg tablet 7.5 mg PO TUTH@179906/12/24 01/22/25 pantoprazole 40 mg tablet,delayed 40 mg PO DAILY@0607/16/24 01/22/25 release warfarin 5 mg tablet 5 mg PO SUMOWEFRSA@1800 07/16/24 01/22/25 estradiol 0.01% (0.1 mg/gram) 1 appl vaginal MOWEFR 10/19/24 01/22/25 vaginal cream furosemide 20 mg tablet 20 mg PO DAILY 10/31/24 01/22/25 Previous Rx's ?Medication ?Instructions ?Recorded amlodipine 5 mg tablet 5 mg PO DAILY #90 tabs 07/19/24 empagliflozin 10 mg tablet 10 mg PO DAILY #30 tabs 10/21/24 aspirin 81 mg chewable tablet 81 mg PO DAILY 30 days #30 tabs 01/31/25 atorvastatin 80 mg tablet 80 mg PO DAILY 30 days #30 tabs 01/31/25 cephalexin 500 mg capsule 500 mg PO Q12H 7 days #14 caps 01/31/25 doxycycline monohydrate 100 mg 100 mg PO Q12H 7 days #14 caps 01/31/25 capsule meclizine 25 mg tablet 25 mg PO TID 9 days #27 tabs 01/31/25 Allergies Allergy/AdvReac Type Severity Reaction Status Date / Time No Known Allergies Allergy Verified 04/27/25 18:14 Review of Systems Review of Systems: all other systems are reviewed and are negative Constitutional: Reports as per HPI and Reports no additional constitutional complaints Eyes: Reports as per HPI and Reports no additional eye complaints Reports system reviewed and no additional complaints, except as documented Cardiovascular: Reports as per HPI and Reports no additional cardiovascular complaints Respiratory: Reports as per HPI and Reports no additional respiratory complaints Gastrointestinal: Reports as per HPI and Reports no additional gastrointestinal complaints Genitourinary: Reports no additional female genitourinary complaints Musculoskeletal: Reports no additional musculoskeletal complaints Skin/Breast: Reports system reviewed and no additional complaints, except as docu Psychiatric: Reports no additional psychiatric complaints Endocrine: Reports no additional endocrine complaints Hematologic/Lymphatic: Reports no additional hematologic/lymphatic complaints Allergic/Immunologic: Reports no additional allergic/immunologic complaints Reports system reviewed and no additional complaints, except as documented and Reports Abnormal speech present [facility] Past Medical History Medical History Angiectasia AVM (arteriovenous malformation) of colon On warfarin therapy Anemia Breast cancer Diabetes Anticoagulated on Coumadin Hypertension Surgical History Status post ablation of incompetent vein using laser Heart valve replaced Social History Social History Household Members: Spouse and Children Housing: House Are you a primary critical care nurse practitioner to a significant other at home: No Do you presently have visiting nurse or other home services: No Alcohol intake: never Patient Tobacco Use Status: Never used Tobacco Smoked in Last 30 Days: No Use of substances other than those prescribed or required for medical reasons: No Advance Directives: Yes Advance Directives on File: Yes Advance Directives Date on File: 07/16/24 Do you have a plan to hurt others: No Plan service: No Physical Exam ED Vital Signs: Vital Signs - 24 hr 04/27/25 18:14 04/27/25 18:22 04/27/25 20:00 Temperature 100.2 F 99.0 F Pulse Rate 113 H 111 H Respiratory Rate 18 20 Blood Pressure 109/54 L 135/48 L Pulse Oximetry 93 91 L Oxygen Delivery Method Room Air Room Air BMI result Body Mass Index 24.8 Vital signs have been reviewed and appear to be correct. Blood pressure. Heart rate elevated.Respiratory rate normal. Low-grade fever.. Oxygen saturation normal. Appearance: Alert. Disoriented, regards examiner, No acute distress. Head: Normal external exam. Normocephalic. Atraumatic. No [place] signs noted. No raccoon eyes noted Eyes: PERRLA. EOMI. Conjunctiva and sclera normal. Eyelids normal. ENT: TM's Normal. Pharynx normal. Uvula midline. Moist mucous membranes. No trismus noted. No drooling noted. No muffled voice noted. Neck: Normal inspection. Neck supple. FROM. No adenopathy. Thyroid Normal. No meningeal signs. No neck mass noted. CVS: Normal heart rate and rhythm. Heart sound normal. No murmurs noted. Pulses normal throughout. Respiratory: No respiratory distress. Painless inspiration. Breath sounds normal. No wheezes/rales/rhonchi noted. Chest nontender. No accessory muscle usage noted or decreased air movement noted. Abdomen: Soft and nontender. Bowel sounds normal in all 4 quadrants. No distention noted. No organomegaly noted. No visible injury noted. Back: No CVA tenderness. Full range of motion noted. Skin: Skin warm and dry. Normal skin color. Normal skin turgor. No rashes/lesions/lacerations noted. Extremities: No lower extremity edema. Extremities exhibit normal range of motion. Extremities nontender. Neuro: right hemiparesis from pre-existing CVA on December 2024. Course Reevaluation(s) Reevaluation #1: infected decubitus ulcer with sepsis, patient received ceftriaxone and vancomycin, unable to obtain urine patient has just urinated in the diaper. Admit to medical service for further management. Time: 20:22 Medications Administered Discontinued Medications Generic Name Dose Route Start Last Admin Trade Name Freq PRN Reason Stop Dose Admin Ceftriaxone Sodium 1 gm/ 50 mls @ 100 mls/hr 04/27/25 18:27 04/27/25 19:10 Sodium Chloride IV 04/27/25 18:56 Infused ONCE ONE Infusion Lactated Ringer's 1,000 mls @ 999 mls/hr 04/27/25 18:30 04/27/25 18:40 Lr IV 04/27/25 19:30 999 mls/hr .[id number] JUANITA Administration Medical Decision Making Differential Diagnosis Differential Diagnoses: The differential diagnosis associated with the presentation includes ( Infected decubitus ulcer, severe sepsis, electrolyte derangement, severe anemia, pneumonia, UTI.) Admission/Observation Consideration of admission/observation: Escalation of care including admission/observation considered Consult Healthcare Provider Management of the patient was discussed with: Hospitalist ( Dr. Garcia) Lab Data MDM Lab Attestation statement: I reviewed the patient's lab results. 04/27/25 18:36 04/27/25 18:36 Labs: Lab Results 04/27/25 Range/Units 18:36 WBC 15.8 H (4.8-10.8) X10*3/uL RBC 3.95 L (4.20-5.50) X10*6/uL Hgb 8.0 L (12.0-16.0) g/dl Hct 28.0 L (37.0-47.0) % MCV 70.9 L (80.0-98.0) fL MCH 20.3 L (27.0-33.0) pg MCHC 28.6 L (31.0-35.0) g/dl RDW 17.1 H (11.0-16.0) % Plt Count 510 H D (160-400) X10*3/uL MPV 10.0 (9.4-12.3) fL Immature Gran % (Auto) 0.5 H (0.0-0.4) % Neut % (Auto) 85.6 H (45-73) % Lymph % (Auto) 6.8 L (20-40) % White % (Auto) 6.6 (2-11) % Eos % (Auto) 0.1 (0-4) % Baso % (Auto) 0.4 (0-2) % Lymph # (Auto) 1.1 L (1.2-4.9) X10*3/uL White # (Auto) 1.0 (0.1-1.2) X10*3/uL Eos # (Auto) 0.0 (0.0-0.4) X10*3/uL Baso # (Auto) 0.1 (0.0-0.2) X10*3/uL Abs Immat Gran (auto) 0.08 H (0.00-0.03) X10*3/uL Absolute Neuts (auto) 13.5 H (2.0-8.3) x10*3/uL Absolute Nucleated RBC 0.000 (0.0-0.012) X10*3/uL Nucleated RBC % (auto) 0.0 (0.0-0.2) /100WBC Sodium 140 (135-145) mmol/L Potassium 4.1 (3.3-5.1) mmol/L Chloride 104 (96-108) mmol/L Carbon Dioxide 28 (22-29) mmol/L Anion Gap 12 (12-20) BUN 28 H (9-16) mg/dL Creatinine 0.91 (0.5-1.4) mg/dL Estim Creat Clear Calc 44.9 Estimated GFR 60 Random Glucose 199 H (60-115) mg/dL Lactic Acid 1.2 (0.5-2.0) mmol/L Calcium 9.4 (8.4-10.2) mg/dL Total Bilirubin 0.2 (0.0-1.0) mg/dL Direct Bilirubin < 0.2 (0.0-0.5) mg/dL AST 25 (5-31) U/L ALT 10 (0-31) U/L Alkaline Phosphatase 100 (39-117) U/L Troponin I High Sens 65.4 H* D (<3.5-17.0) ng/L Total Protein 7.2 (6.5-8.0) g/dL Albumin 3.4 L (3.5-5.0) g/dL Lipase 29 (8-78) U/L Influenza Type A (PCR) NEGATIVE (Negative) Influenza Type B (PCR) NEGATIVE (Negative) RSV RNA Qual (PCR) NEGATIVE (Negative) SARS-CoV-2 RNA (RT-PCR) NEGATIVE (Negative) Independent Interpretation I performed an independent interpretation of an: Plain X-Ray ( chest:Cardiomegaly . No pulmonary edema. No consolidation./ ) Radiology Impression Discussion of test interpretation with radiology: I have reviewed the radiologist's reading. Discharge Plan Discharge Clinical Impression: Infected decubitus ulcer Patient Disposition: Admitted As Inpatient Print Language: English
--- NOTE | 2025-04-27 19:12 | PC.NURSE ---
This RN assumed pt care @ 1900. Pt a&ox3, no signs of distress. Pts family at bedside Pt with radiology.
--- OUTSIDE RECORDS SUMMARY | 2025-04-27 19:15 | XMS_ITS | Clinical Summary ---
Author Organization [facility] Address [address] [facility] [place] [address] Phone Care Team Providers Care Private Eye Name Role Phone Paco Schuler MD Primary Care Provider [phone] Allergies No known active allergies Medications atorvastatin (LIPITOR) 40 mg tablet Take 2 tablets (80 mg total) by mouth 1 (one) time [...] pantoprazole (PROTONIX) 20 mg EC tablet Take 2 tablets (40 mg total) by mouth 1 (one) time each day before breakfast. Do not crush, chew, or split. Active furosemide (LASIX) 20 mg tablet Take 1 tablet (20 mg total) by mouth 1 (one) time each day. Active levETIRAcetam (KEPPRA) 500 mg tablet Take 1 tablet (500 mg total) by mouth 2 (two) times a day. 5 02/05/20 Active bisacodyL (DULCOLAX) 5 mg EC tablet Take 2 tablets (10 mg total) by mouth 1 (one) time each day if needed for constipation. Do not crush, chew, or split. Active insulin glargine (LANTUS) 100 unit/mL injection Inject 30 Units under the skin at bedtime. 10 mL 11 5 03/02/20 Active aspirin 81 mg chewable tablet Chew 1 tablet (81 mg total) 1 (one) time each day. 30 each 11 5 03/03/20 Active white petrolatum (AQUAPHOR) 41 % ointment Apply topically 2 (two) times a day. Active warfarin (COUMADIN) 2 mg tablet Take 2 tablets (4 mg total) by mouth 1 (one) time each day. 60 each 11 5 03/11/20 Active levETIRAcetam (KEPPRA) 500 mg tablet Take 1 tablet (500 mg total) by mouth 2 (two) times a day. 60 each 11 5 03/10/20 Active insulin lispro (HumaLOG U-100 Insulin) 100 unit/mL injection Take 12 units with breakfast,12 units with lunch and 16 units with dinner -Administer within 15 minutes of a meal 40 mL 5 Active Active Problems Problem Noted Date Diagnosed Date Atrial fibrillation (CMS/[facility] V24, CMS/[facility] V28) 0 02/21/2025 Assessment & Plan (03/09/2025 11:05 AM EDT): Patient has been tachycardic throughout entire admission. She has no history of A-fib. EKG done on 02/21 showed atrial fibrillation with left bundle branch block. MEGAN done on 02/04 showed low-normal ejection fraction and no evidence of thrombus in the left atrial appendage or on the mechanical aortic valve. TSH during this admission was 1.85. Etiology may be in the setting of acute infection and surgical intervention. - Continue metoprolol 50 mg BID Assessment & Plan (03/08/2025 12:53 PM EDT): Patient has been tachycardic throughout entire admission. She has no history of A-fib. EKG done on 02/21 showed atrial fibrillation with left bundle branch block. MEGAN done on 02/04 showed low-normal ejection fraction and no evidence of thrombus in the left atrial appendage or on the mechanical aortic valve. TSH during this admission was 1.85. Etiology may be in the setting of acute infection and surgical intervention. - Continue metoprolol 50 mg BID Assessment & Plan (03/07/2025 3:45 PM EDT): Patient has been tachycardic throughout entire admission. She has no history of A-fib. EKG done on 02/21 showed atrial fibrillation with left bundle branch block. MEGAN done on 02/04 showed low-normal ejection fraction and no evidence of thrombus in the left atrial appendage or on the mechanical aortic valve. TSH during this admission was 1.85. Etiology may be in the setting of acute infection and surgical intervention. - Continue metoprolol 50 mg BID Assessment & Plan (03/06/2025 9:25 AM EDT): Patient has been tachycardic throughout entire admission. She has no history of A-fib. EKG done on 02/21 showed atrial fibrillation with left bundle branch block. MEGAN done on 02/04 showed low-normal ejection fraction and no evidence of thrombus in the left atrial appendage or on the mechanical aortic valve. TSH during this admission was 1.85. Etiology may be in the setting of acute infection and surgical intervention. - Continue metoprolol 50 mg BID Assessment & Plan (03/05/2025 9:46 AM EDT): Patient has been tachycardic throughout entire admission. She has no history of A-fib. EKG done on 02/21 showed atrial fibrillation with left bundle branch block. MEGAN done on 02/04 showed low-normal ejection fraction and no evidence of thrombus in the left atrial appendage or on the mechanical aortic valve. TSH during this admission was 1.85. Etiology may be in the setting of acute infection and surgical intervention. - Continue metoprolol to 50 mg BID Assessment & Plan (03/04/2025 12:24 PM EDT): Patient has been tachycardic throughout entire admission. She has no history of A-fib. EKG done on 02/21 showed atrial fibrillation with left bundle branch block. MEGAN done on 02/04 showed low-normal ejection fraction and no evidence of thrombus in the left atrial appendage or on the mechanical aortic valve. TSH during this admission was 1.85. Etiology may be in the setting of acute infection and surgical intervention. - Continue metoprolol to 50 mg BID Assessment & Plan (03/03/2025 9:48 AM EDT): Patient has been tachycardic throughout entire admission. She has no history of A-fib. EKG done on 02/21 showed atrial fibrillation with left bundle branch block. MEGAN done on 02/04 showed low-normal ejection fraction and no evidence of thrombus in the left atrial appendage or on the mechanical aortic valve. TSH during this admission was 1.85. Etiology may be in the setting of acute infection and surgical intervention. - Continue metoprolol to 50 mg BID Assessment & Plan (03/02/2025 4:30 PM EDT): Patient has been tachycardic throughout entire admission. She has no history of A-fib. EKG done on 02/21 showed atrial fibrillation with left bundle branch block. MEGAN done on 02/04 showed low-normal ejection fraction and no evidence of thrombus in the left atrial appendage or on the mechanical aortic valve. TSH during this admission was 1.85. Etiology may be in the setting of acute infection and surgical intervention. - Continue metoprolol to 50 mg BID Assessment & Plan (03/01/2025 12:46 PM EDT): Patient has been tachycardic throughout entire admission. She has no history of A-fib. EKG done on 02/21 showed atrial fibrillation with left bundle branch block. MEGAN done on 02/04 showed low-normal ejection fraction and no evidence of thrombus in the left atrial appendage or on the mechanical aortic valve. TSH during this admission was 1.85. Etiology may be in the setting of acute infection and surgical intervention. - Continue metoprolol to 50 mg BID Assessment & Plan (02/28/2025 1:04 PM EDT): Patient has been tachycardic throughout entire admission. She has no history of A-fib. EKG done on 02/21 showed atrial fibrillation with left bundle branch block. MEGAN done on 02/04 showed low-normal ejection fraction and no evidence of thrombus in the left atrial appendage or on the mechanical aortic valve. TSH during this admission was 1.85. Etiology may be in the setting of acute infection and surgical intervention. - Continue metoprolol to 50 mg BID Assessment & Plan (02/28/2025 12:57 PM EDT): Patient has been tachycardic throughout entire admission. She has no history of A-fib. EKG done on 02/21 showed atrial fibrillation with left bundle branch block. MEGAN done on 02/04 showed low-normal ejection fraction and no evidence of thrombus in the left atrial appendage or on the mechanical aortic valve. TSH during this admission was 1.85. Etiology may be in the setting of acute infection and surgical intervention. Intermittently tachycardic. - Continue metoprolol to 50 mg BID Assessment & Plan (02/28/2025 12:33 PM EDT): Patient has been tachycardic throughout entire admission. She has no history of A-fib. EKG done on 02/21 showed atrial fibrillation with left bundle branch block. MEGAN done on 02/04 showed low-normal ejection fraction and no evidence of thrombus in the left atrial appendage or on the mechanical aortic valve. TSH during this admission was 1.85. Etiology may be in the setting of acute infection and surgical intervention. - Continue metoprolol to 50 mg BID Assessment & Plan (02/26/2025 11:33 AM EDT): Patient has been tachycardic throughout entire admission. She has no history of A-fib. EKG done on 02/21 showed atrial fibrillation with left bundle branch block. MEGAN done on 02/04 showed low-normal ejection fraction and no evidence of thrombus in the left atrial appendage or on the mechanical aortic valve. TSH during this admission was 1.85. Etiology may be in the setting of acute infection and surgical intervention. - Continue metoprolol to 50 mg BID Assessment & Plan (02/25/2025 7:28 AM EDT): Patient has been tachycardic throughout entire admission. She has no history of A-fib. EKG done on 02/21 showed atrial fibrillation with left bundle branch block. MEGAN done on 02/04 showed low-normal ejection fraction and no evidence of thrombus in the left atrial appendage or on the mechanical aortic valve. TSH during this admission was 1.85. Etiology may be in the setting of acute infection and surgical intervention. - Continue metoprolol to 50 mg BID Assessment & Plan (02/24/2025 12:26 PM EDT): Patient has been tachycardic throughout entire admission. She has no history of A-fib. EKG done on 02/21 showed atrial fibrillation with left bundle branch block. MEGAN done on 02/04 showed low-normal ejection fraction and no evidence of thrombus in the left atrial appendage or on the mechanical aortic valve. TSH during this admission was 1.85. Etiology may be in the setting of acute infection and surgical intervention. - Continue metoprolol to 50 mg BID Assessment & Plan (02/25/2025 3:59 PM EDT): Patient has been tachycardic throughout entire admission. She has no history of A-fib. EKG done on 02/21 showed atrial fibrillation with left bundle branch block. MEGAN done on 02/04 showed low-normal ejection fraction and no evidence of thrombus in the left atrial appendage or on the mechanical aortic valve. TSH during this admission was 1.85. Etiology may be in the setting of acute infection and surgical intervention. - Continue metoprolol to 50 mg BID Assessment & Plan (02/23/2025 1:38 PM EDT): Patient has been tachycardic throughout entire admission. She has no history of A-fib. EKG done on 02/21 showed atrial fibrillation with left bundle branch block. MEGAN done on 02/04 showed low-normal ejection fraction and no evidence of thrombus in the left atrial appendage or on the mechanical aortic valve. TSH during this admission was 1.85. Etiology may be in the setting of acute infection and surgical intervention. - Continue metoprolol to 50 mg BID Assessment & Plan (02/22/2025 12:32 PM EDT): Patient has been tachycardic throughout entire admission. She has no history of A-fib. EKG done on 02/21 showed atrial fibrillation with left bundle branch block. MEGAN done on 02/04 showed low-normal ejection fraction and no evidence of thrombus in the left atrial appendage or on the mechanical aortic valve. TSH during this admission was 1.85. Etiology may be in the setting of acute infection and surgical intervention. - Increase metoprolol to 50 mg BID Assessment & Plan (02/22/2025 11:17 AM EDT): Patient has been tachycardic throughout entire admission. She has no history of A-fib. EKG done on 02/19 showed sinus rhythm with left bundle branch block. MEGAN done on 02/04 showed low-normal ejection fraction and no evidence of thrombus in the left atrial appendage or on the mechanical aortic valve. TSH during this admission was 1.85. Etiology may be in the setting of acute infection. - Increase metoprolol to 50 mg BID - F/u EKG Assessment & Plan (02/21/2025 3:09 PM EDT): Patient has been tachycardic throughout entire admission. She has no history of A-fib. EKG done on 02/19 showed sinus rhythm with left bundle branch block. EMGAN done on 02/04 showed low-normal ejection fraction and no evidence of thrombus in the left atrial appendage or on the mechanical aortic valve. TSH during this admission was 1.85. Etiology may be in the setting of acute infection. - Increase metoprolol to 25 mg BID - F/u EKG Iron deficiency anemia 02/15/2025 Assessment & Plan (03/09/2025 11:05 AM EDT): Baseline HgB 9.0 with MCV 76. Iron panel with an iron of 16 and ferritin of 83. Folic acid and vitamin B12 within normal limits. - Monitor CBC daily; transfuse for HgB <7 - Iron supplementation outpatient Assessment & Plan (03/08/2025 12:53 PM EDT): Baseline HgB 9.0 with MCV 76. Iron panel with an iron of 16 and ferritin of 83. Folic acid and vitamin B12 within normal limits. - Monitor CBC daily; transfuse for HgB <7 - Iron supplementation outpatient Assessment & Plan (03/07/2025 3:45 PM EDT): Baseline HgB 9.0 with MCV 76. Iron panel with an iron of 16 and ferritin of 83. Folic acid and vitamin B12 within normal limits. - Monitor CBC daily; transfuse for HgB <7 - Iron supplementation outpatient Assessment & Plan (03/06/2025 9:25 AM EDT): Baseline HgB 9.0 with MCV 76. Iron panel with an iron of 16 and ferritin of 83. Folic acid and vitamin B12 within normal limits. - Monitor CBC daily; transfuse for HgB <7 - Iron supplementation outpatient Assessment & Plan (03/05/2025 9:46 AM EDT): Baseline HgB 9.0 with MCV 76. Iron panel with an iron of 16 and ferritin of 83. Folic acid and vitamin B12 within normal limits. - Monitor CBC daily; transfuse for HgB <7 - Iron supplementation outpatient Assessment & Plan (03/04/2025 12:24 PM EDT): Baseline HgB 9.0 with MCV 76. Iron panel with an iron of 16 and ferritin of 83. Folic acid and vitamin B12 within normal limits. - Monitor CBC daily; transfuse for HgB <7 - Iron supplementation outpatient Assessment & Plan (03/03/2025 9:48 AM EDT): Baseline HgB 9.0 with MCV 76. Iron panel with an iron of 16 and ferritin of 83. Folic acid and vitamin B12 within normal limits. - Monitor CBC daily; transfuse for HgB <7 - Iron supplementation outpatient Assessment & Plan (03/02/2025 4:30 PM EDT): Baseline HgB 9.0 with MCV 76. Iron panel with an iron of 16 and ferritin of 83. Folic acid and vitamin B12 within normal limits. - Monitor CBC daily; transfuse for HgB <7 - Iron supplementation outpatient Assessment & Plan (03/01/2025 12:46 PM EDT): Baseline HgB 9.0 with MCV 76. Iron panel with an iron of 16 and ferritin of 83. Folic acid and vitamin B12 within normal limits. - Monitor CBC daily; transfuse for HgB <7 - Iron supplementation outpatient Assessment & Plan (02/28/2025 1:04 PM EDT): Baseline HgB 9.0 with MCV 76. Iron panel with an iron of 16 and ferritin of 83. Folic acid and vitamin B12 within normal limits. - Monitor CBC daily; transfuse for HgB <7 - Iron supplementation outpatient Assessment & Plan (02/28/2025 9:47 AM EDT): Baseline HgB 9.0 with MCV 76. Iron panel with an iron of 16 and ferritin of 83. Folic acid and vitamin B12 within normal limits. Plan: - Monitor CBC daily; transfuse for HgB <7 - Iron supplementation outpatient Assessment & Plan (02/28/2025 12:33 PM EDT): Baseline HgB 9.0 with MCV 76. Iron panel with an iron of 16 and ferritin of 83. Folic acid and vitamin B12 within normal limits. - Monitor CBC daily; transfuse for HgB <7 - Iron supplementation outpatient Assessment & Plan (02/26/2025 11:33 AM EDT): Baseline HgB 9.0 with MCV 76. Iron panel with an iron of 16 and ferritin of 83. Folic acid and vitamin B12 within normal limits. - Monitor CBC daily; transfuse for HgB <7 - Iron supplementation outpatient Assessment & Plan (02/25/2025 7:28 AM EDT): Baseline HgB 9.0 with MCV 76. Iron panel with an iron of 16 and ferritin of 83. Folic acid and vitamin B12 within normal limits. - Monitor CBC daily; transfuse for HgB <7 - Iron supplementation outpatient Assessment & Plan (02/24/2025 12:26 PM EDT): Baseline HgB 9.0 with MCV 76. Iron panel with an iron of 16 and ferritin of 83. Folic acid and vitamin B12 within normal limits. - Monitor CBC daily; transfuse for HgB <7 - Iron supplementation outpatient Assessment & Plan (02/25/2025 3:59 PM EDT): Baseline HgB 9.0 with MCV 76. Iron panel with an iron of 16 and ferritin of 83. Folic acid and vitamin B12 within normal limits. - Monitor CBC daily; transfuse for HgB <7 - Iron supplementation outpatient Assessment & Plan (02/23/2025 7:08 AM EDT): Baseline HgB 9.0 with MCV 76. Iron panel with an iron of 16 and ferritin of 83. Folic acid and vitamin B12 within normal limits. - Monitor CBC daily; transfuse for HgB <7 - Iron supplementation outpatient Assessment & Plan (02/22/2025 12:32 PM EDT): Baseline HgB 9.0 with MCV 76. Iron panel with an iron of 16 and ferritin of 83. Folic acid and vitamin B12 within normal limits. - Monitor CBC daily; transfuse for HgB <7 - Iron supplementation outpatient Assessment & Plan (02/22/2025 7:41 AM EDT): Baseline HgB 9.0 with MCV 76. Iron panel with an iron of 16 and ferritin of 83. Folic acid and vitamin B12 within normal limits. - Monitor CBC daily; transfuse for HgB <7 - Iron supplementation outpatient Assessment & Plan (02/21/2025 1:30 PM EDT): Baseline HgB 9.0 with MCV 76. Iron panel with an iron of 16 and ferritin of 83. Folic acid and vitamin B12 within normal limits. - Monitor CBC daily; transfuse for HgB <7 - Iron supplementation outpatient Assessment & Plan (02/21/2025 7:01 AM EDT): Baseline HgB 9.0 with MCV 76. Iron panel with an iron of 16 and ferritin of 83. Folic acid and vitamin B12 within normal limits. - Monitor CBC daily; transfuse for HgB <7 - Iron supplementation outpatient Assessment & Plan (02/20/2025 12:02 PM EDT): Baseline HgB 9.0 with MCV 76. Iron panel with an iron of 16 and ferritin of 83. Folic acid and vitamin B12 within normal limits. - Monitor CBC daily; transfuse for HgB <7 - Iron supplementation outpatient Assessment & Plan (02/19/2025 12:51 PM EDT): Baseline HgB 9.0 with MCV 76. Iron panel with an iron of 16 and ferritin of 83. Folic acid and vitamin B12 within normal limits. - Monitor CBC daily; transfuse for HgB <7 - Iron supplementation outpatient Assessment & Plan (02/17/2025 4:32 PM EDT): Hb 9.1 baseline. MCV 71.5. iron panel showed an iron of 16, ferritin of 83. Folic acid and vit b12 wnl. However both low normal. -iron supplement -folic acid and vit b12 supplment Assessment & Plan (02/15/2025 3:25 PM EDT): Hb 9.1 baseline. MCV 71.5. iron panel showed an iron of 16, ferritin of 83. Folic acid and vit b12 wnl. However both low normal. -iron supplement -folic acid and vit b12 supplment Thyroid nodule 02/15/2025 Assessment & Plan (03/09/2025 11:05 AM EDT): Incidental finding of bilateral thyroid nodules. Assessment & Plan (03/08/2025 12:53 PM EDT): Incidental finding of bilateral thyroid nodules. Assessment & Plan (03/07/2025 3:45 PM EDT): Incidental finding of bilateral thyroid nodules. Assessment & Plan (03/06/2025 9:25 AM EDT): Incidental finding of bilateral thyroid nodules. Assessment & Plan (03/05/2025 9:46 AM EDT): Incidental finding of bilateral thyroid nodules. Assessment & Plan (03/04/2025 12:24 PM EDT): Incidental finding of bilateral thyroid nodules. Assessment & Plan (03/03/2025 9:48 AM EDT): Incidental finding of bilateral thyroid nodules. Assessment & Plan (03/02/2025 4:30 PM EDT): Incidental finding of bilateral thyroid nodules. Assessment & Plan (03/01/2025 12:46 PM EDT): Incidental finding of bilateral thyroid nodules. Assessment & Plan (02/28/2025 1:04 PM EDT): Incidental finding of bilateral thyroid nodules. Assessment & Plan (02/28/2025 9:47 AM EDT): Incidental finding of bilateral thyroid nodules. Assessment & Plan (02/28/2025 12:33 PM EDT): Incidental finding of bilateral thyroid nodules. Assessment & Plan (02/26/2025 11:33 AM EDT): Incidental finding of bilateral thyroid nodules. Assessment & Plan (02/25/2025 7:28 AM EDT): Incidental finding of bilateral thyroid nodules. Assessment & Plan (02/24/2025 12:26 PM EDT): Incidental finding of bilateral thyroid nodules. Assessment & Plan (02/25/2025 3:59 PM EDT): Incidental finding of bilateral thyroid nodules. Assessment & Plan (02/23/2025 7:08 AM EDT): Incidental finding of bilateral thyroid nodules. Assessment & Plan (02/22/2025 12:32 PM EDT): Incidental finding of bilateral thyroid nodules. Assessment & Plan (02/22/2025 7:41 AM EDT): Incidental finding of bilateral thyroid nodules. Assessment & Plan (02/21/2025 1:30 PM EDT): Incidental finding of bilateral thyroid nodules. Assessment & Plan (02/21/2025 7:01 AM EDT): Incidental finding of bilateral thyroid nodules. Assessment & Plan (02/20/2025 12:02 PM EDT): Incidental finding of bilateral thyroid nodules. Assessment & Plan (02/19/2025 12:51 PM EDT): Incidental finding of bilateral thyroid nodules. Assessment & Plan (02/17/2025 4:32 PM EDT): Incidental finding of bilateral thyroid nodules. -continue opd FU Assessment & Plan (02/15/2025 3:25 PM EDT): Incidental finding of bilateral thyroid nodules. -continue opd FU History of mechanical aortic valve replacement 0 02/08/2025 Assessment & Plan (03/09/2025 11:05 AM EDT): Cardiology consulted for appropriate INR target given mechanical aortic valve, in the setting of multiple strokes. Given stroke has been attributed to severe intracranial atherosclerosis, this does not likely represent warfarin failure. A recent transesophageal echocardiogram (MEGAN) performed at [facility] on 02/04/2025 showed low-normal ejection fraction and no evidence of thrombus in the left atrial appendage or on the mechanical aortic valve. Given prior MRI findings of cerebral microhemorrhages, cardiology recommended against increasing INR goal. - INR goal 2.5-3.0 - INR 2.4, give 5 mg warfarin today; continue with lovenox for bridging Assessment & Plan (03/08/2025 12:53 PM EDT): Cardiology consulted for appropriate INR target given mechanical aortic valve, in the setting of multiple strokes. Given stroke has been attributed to severe intracranial atherosclerosis, this does not likely represent warfarin failure. A recent transesophageal echocardiogram (MEGAN) performed at [facility] on 02/04/2025 showed low-normal ejection fraction and no evidence of thrombus in the left atrial appendage or on the mechanical aortic valve. Given prior MRI findings of cerebral microhemorrhages, cardiology recommended against increasing INR goal. - INR goal 2.5-3.0 - INR 2.1, give 6 mg warfarin today; continue with lovenox for bridging Assessment & Plan (03/07/2025 3:45 PM EDT): Cardiology consulted for appropriate INR target given mechanical aortic valve, in the setting of multiple strokes. Given stroke has been attributed to severe intracranial atherosclerosis, this does not likely represent warfarin failure. A recent transesophageal echocardiogram (MEGAN) performed at [facility] on 02/04/2025 showed low-normal ejection fraction and no evidence of thrombus in the left atrial appendage or on the mechanical aortic valve. Given prior MRI findings of cerebral microhemorrhages, cardiology recommended against increasing INR goal. - INR goal 2.5-3.0 - INR 1.9, give 6 mg warfarin today; continue with lovenox for bridging Assessment & Plan (03/06/2025 12:01 PM EDT): Cardiology consulted for appropriate INR target given mechanical aortic valve, in the setting of multiple strokes. Given stroke has been attributed to severe intracranial atherosclerosis, this does not likely represent warfarin failure. A recent transesophageal echocardiogram (MEGAN) performed at [facility] on 02/04/2025 showed low-normal ejection fraction and no evidence of thrombus in the left atrial appendage or on the mechanical aortic valve. Given prior MRI findings of cerebral microhemorrhages, cardiology recommended against increasing INR goal. - INR goal 2.5-3.0 - INR 1.9, give 6 mg warfarin today; continue with lovenox for bridging Assessment & Plan (03/05/2025 9:46 AM EDT): Cardiology consulted for appropriate INR target given mechanical aortic valve, in the setting of multiple strokes. Given stroke has been attributed to severe intracranial atherosclerosis, this does not likely represent warfarin failure. A recent transesophageal echocardiogram (MEGAN) performed at [facility] on 02/04/2025 showed low-normal ejection fraction and no evidence of thrombus in the left atrial appendage or on the mechanical aortic valve. Given prior MRI findings of cerebral microhemorrhages, cardiology recommended against increasing INR goal. - INR goal 2.5-3.0 - INR 2.2, give 5 mg warfarin today; pt started on heparin bridge infusion (no bolus) today Assessment & Plan (03/04/2025 12:41 PM EDT): Cardiology consulted for appropriate INR target given mechanical aortic valve, in the setting of multiple strokes. Given stroke has been attributed to severe intracranial atherosclerosis, this does not likely represent warfarin failure. A recent transesophageal echocardiogram (MEGAN) performed at [facility] on 02/04/2025 showed low-normal ejection fraction and no evidence of thrombus in the left atrial appendage or on the mechanical aortic valve. Given prior MRI findings of cerebral microhemorrhages, cardiology recommended against increasing INR goal. - INR goal 2.5-3.0 - INR 2.1, give 5 mg warfarin today; we have reached out to cardiology to determine when the patient would need bridging therapy again. Assessment & Plan (03/03/2025 9:48 AM EDT): Cardiology consulted for appropriate INR target given mechanical aortic valve, in the setting of multiple strokes. Given stroke has been attributed to severe intracranial atherosclerosis, this does not likely represent warfarin failure. A recent transesophageal echocardiogram (MEGAN) performed at [facility] on 02/04/2025 showed low-normal ejection fraction and no evidence of thrombus in the left atrial appendage or on the mechanical aortic valve. Given prior MRI findings of cerebral microhemorrhages, cardiology recommended against increasing INR goal. - INR goal 2.5-3.0 - INR 2.3 today, give 5 mg warfarin today Assessment & Plan (03/02/2025 4:30 PM EDT): Cardiology consulted for appropriate INR target given mechanical aortic valve, in the setting of multiple strokes. Given stroke has been attributed to severe intracranial atherosclerosis, this does not likely represent warfarin failure. A recent transesophageal echocardiogram (MEGAN) performed at [facility] on 02/04/2025 showed low-normal ejection fraction and no evidence of thrombus in the left atrial appendage or on the mechanical aortic valve. Given prior MRI findings of cerebral microhemorrhages, cardiology recommended against increasing INR goal. - INR goal 2.5-3.0 - INR 2.4 today, give another 4 mg warfarin today - Repeat INR in the evening - Continue heparin infusion for bridging in the setting of subtherapeutic INR Assessment & Plan (03/01/2025 12:46 PM EDT): Cardiology consulted for appropriate INR target given mechanical aortic valve, in the setting of multiple strokes. Given stroke has been attributed to severe intracranial atherosclerosis, this does not likely represent warfarin failure. A recent transesophageal echocardiogram (MEGAN) performed at [facility] on 02/04/2025 showed low-normal ejection fraction and no evidence of thrombus in the left atrial appendage or on the mechanical aortic valve. Given prior MRI findings of cerebral microhemorrhages, cardiology recommended against increasing INR goal. - INR goal 2.5-3.0 - INR 2.4 today, give another 4 mg warfarin today - Repeat INR in the evening - Continue heparin infusion for bridging in the setting of subtherapeutic INR Assessment & Plan (02/28/2025 1:04 PM EDT): Cardiology consulted for appropriate INR target given mechanical aortic valve, in the setting of multiple strokes. Given stroke has been attributed to severe intracranial atherosclerosis, this does not likely represent warfarin failure. A recent transesophageal echocardiogram (MEGAN) performed at [facility] on 02/04/2025 showed low-normal ejection fraction and no evidence of thrombus in the left atrial appendage or on the mechanical aortic valve. Given prior MRI findings of cerebral microhemorrhages, cardiology recommended against increasing INR goal. - INR goal 2.5-3.0 - INR 2.1 today, Warfarin 4 mg given on 02/27 - Heparin infusion for bridging in the setting of subtherapeutic INR Assessment & Plan (02/28/2025 12:57 PM EDT): Cardiology consulted for appropriate INR target given mechanical aortic valve, in the setting of multiple strokes. Given stroke has been attributed to severe intracranial atherosclerosis, this does not likely represent warfarin failure. A recent transesophageal echocardiogram (MEGAN) performed at [facility] on 02/04/2025 showed low-normal ejection fraction and no evidence of thrombus in the left atrial appendage or on the mechanical aortic valve. Given prior MRI findings of cerebral microhemorrhages, cardiology recommended against increasing INR goal. Anti Xa 0.3 on 02/28. Plan: - INR goal 2.5-3.0 - INR 2.1 02/28, Warfarin 4 mg given again on 02/28, f/u INR am - Heparin infusion for bridging in the setting of subtherapeutic INR Assessment & Plan (02/28/2025 12:33 PM EDT): Cardiology consulted for appropriate INR target given mechanical aortic valve, in the setting of multiple strokes. Given stroke has been attributed to severe intracranial atherosclerosis, this does not likely represent warfarin failure. A recent transesophageal echocardiogram (MEGAN) performed at [facility] on 02/04/2025 showed low-normal ejection fraction and no evidence of thrombus in the left atrial appendage or on the mechanical aortic valve. Given prior MRI findings of cerebral microhemorrhages, cardiology recommended against increasing INR goal. - INR goal 2.5-3.0 - INR 2.1 today, Warfarin 4 mg given on 02/27 - Heparin infusion for bridging in the setting of subtherapeutic INR Assessment & Plan (02/26/2025 11:33 AM EDT): Cardiology consulted for appropriate INR target given mechanical aortic valve, in the setting of multiple strokes. Given stroke has been attributed to severe intracranial atherosclerosis, this does not likely represent warfarin failure. A recent transesophageal echocardiogram (MEGAN) performed at [facility] on 02/04/2025 showed low-normal ejection fraction and no evidence of thrombus in the left atrial appendage or on the mechanical aortic valve. Given prior MRI findings of cerebral microhemorrhages, cardiology recommended against increasing INR goal. - INR goal 2.5-3.0 - INR 1.5 today, Warfarin 6 mg given on 02/26 - Heparin infusion for bridging in the setting of subtherapeutic INR Assessment & Plan (02/25/2025 4:06 PM EDT): Cardiology consulted for appropriate INR target given mechanical aortic valve, in the setting of multiple strokes. Given stroke has been attributed to severe intracranial atherosclerosis, this does not likely represent warfarin failure. A recent transesophageal echocardiogram (MEGAN) performed at [facility] on 02/04/2025 showed low-normal ejection fraction and no evidence of thrombus in the left atrial appendage or on the mechanical aortic valve. Given prior MRI findings of cerebral microhemorrhages, cardiology recommended against increasing INR goal. - INR goal 2.5-3.0 - INR 1.4 today, Warfarin 4 mg given on 02/25 - Heparin infusion for bridging in the setting of subtherapeutic INR Assessment & Plan (02/24/2025 12:46 PM EDT): Cardiology consulted for appropriate INR target given mechanical aortic valve, in the setting of multiple strokes. Given stroke has been attributed to severe intracranial atherosclerosis, this does not likely represent warfarin failure. A recent transesophageal echocardiogram (MEGAN) performed at [facility] on 02/04/2025 showed low-normal ejection fraction and no evidence of thrombus in the left atrial appendage or on the mechanical aortic valve. Given prior MRI findings of cerebral microhemorrhages, cardiology recommended against increasing INR goal. Possible heparin bridge required due to MAVR and recent history of stroke. - INR goal 2.5-3.0 - INR 1.5 today, Warfarin 4 mg given on 02/24 - Consulting stroke team concerning possible heparin bridge for MAVR, currently on 4 mg Warfarin, INR = 1.5 Assessment & Plan (02/25/2025 3:59 PM EDT): Cardiology consulted for appropriate INR target given mechanical aortic valve, in the setting of multiple strokes. Given stroke has been attributed to severe intracranial atherosclerosis, this does not likely represent warfarin failure. A recent transesophageal echocardiogram (MEGAN) performed at [facility] on 02/04/2025 showed low-normal ejection fraction and no evidence of thrombus in the left atrial appendage or on the mechanical aortic valve. Patient's INR has remained subtherapeutic and she is a candidate for bridging therapy due to her mechanical valve; however would appreciate neurology input given CT findings of micro hemorrhages. - INR goal 2.5-3.0 - INR 1.5 today, Warfarin 4 mg given on 02/24 - Neurology consulted, appreciate recommendations. Assessment & Plan (02/23/2025 1:38 PM EDT): Cardiology consulted for appropriate INR target given mechanical aortic valve, in the setting of multiple strokes. Given stroke has been attributed to severe intracranial atherosclerosis, this does not likely represent warfarin failure. A recent transesophageal echocardiogram (MEGAN) performed at [facility] on 02/04/2025 showed low-normal ejection fraction and no evidence of thrombus in the left atrial appendage or on the mechanical aortic valve. Given prior MRI findings of cerebral microhemorrhages, cardiology recommended against increasing INR goal. - INR goal 2.5-3.0 - INR 1.4 today, Warfarin 4 mg given on 02/23 Assessment & Plan (02/22/2025 12:32 PM EDT): Cardiology consulted for appropriate INR target given mechanical aortic valve, in the setting of multiple strokes. Given stroke has been attributed to severe intracranial atherosclerosis, this does not likely represent warfarin failure. A recent transesophageal echocardiogram (MEGAN) performed at [facility] on 02/04/2025 showed low-normal ejection fraction and no evidence of thrombus in the left atrial appendage or on the mechanical aortic valve. Given prior MRI findings of cerebral microhemorrhages, cardiology recommended against increasing INR goal. - INR goal 2.5-3.0 - INR 1.8 today, Warfarin 4 mg given on 02/22 Assessment & Plan (02/22/2025 11:17 AM EDT): Cardiology consulted for appropriate INR target given mechanical aortic valve, in the setting of multiple strokes. Given stroke has been attributed to severe intracranial atherosclerosis, this does not likely represent warfarin failure. A recent transesophageal echocardiogram (MEGAN) performed at [facility] on 02/04/2025 showed low-normal ejection fraction and no evidence of thrombus in the left atrial appendage or on the mechanical aortic valve. Given prior MRI findings of cerebral microhemorrhages, cardiology recommended against increasing INR goal. Home medications: 2 mg warfarin oral tablet - Resume full warfarin dose of 2 mg, INR 2.0 02/21 on 2 mg Assessment & Plan (02/21/2025 2:23 PM EDT): Cardiology consulted for appropriate INR target given mechanical aortic valve, in the setting of multiple strokes. Given stroke has been attributed to severe intracranial atherosclerosis, this does not likely represent warfarin failure. A recent transesophageal echocardiogram (MEGAN) performed at [facility] on 02/04/2025 showed low-normal ejection fraction and no evidence of thrombus in the left atrial appendage or on the mechanical aortic valve. Given prior MRI findings of cerebral microhemorrhages, cardiology recommended against increasing INR goal. Home medications: 4 mg warfarin oral tablet - Resume full warfarin dose of 4 mg, INR 2.0 02/21 on 2 mg Assessment & Plan (02/21/2025 2:34 PM EDT): Cardiology consulted for appropriate INR target given mechanical aortic valve, in the setting of multiple strokes. Given stroke has been attributed to severe intracranial atherosclerosis, this does not likely represent warfarin failure. A recent transesophageal echocardiogram (MEGAN) performed at [facility] on 02/04/2025 showed low-normal ejection fraction and no evidence of thrombus in the left atrial appendage or on the mechanical aortic valve. Given prior MRI findings of cerebral microhemorrhages, cardiology recommended against increasing INR goal. - INR goal 2.5-3.0 - INR 2.0 today, Warfarin 2 mg given on 02/21 Assessment & Plan (02/20/2025 12:02 PM EDT): Cardiology consulted for appropriate INR target given mechanical aortic valve, in the setting of multiple strokes. Given stroke has been attributed to severe intracranial atherosclerosis, this does not likely represent warfarin failure. A recent transesophageal echocardiogram (MEGAN) performed at [facility] on 02/04/2025 showed low-normal ejection fraction and no evidence of thrombus in the left atrial appendage or on the mechanical aortic valve. Given prior MRI findings of cerebral microhemorrhages, cardiology recommended against increasing INR goal. - INR goal 2.5-3.0 - INR 2.4 today, Warfarin 2 mg given on 02/20 Assessment & Plan (02/19/2025 12:51 PM EDT): Cardiology consulted for appropriate INR target given mechanical aortic valve, in the setting of multiple strokes. Given stroke has been attributed to severe intracranial atherosclerosis, this does not likely represent warfarin failure. A recent transesophageal echocardiogram (MEGAN) performed at [facility] on 02/04/2025 showed low-normal ejection fraction and no evidence of thrombus in the left atrial appendage or on the mechanical aortic valve. Given prior MRI findings of cerebral microhemorrhages, cardiology recommended against increasing INR goal. - INR goal 2.5-3.0 - INR 3.9, Warfarin 1 g given on 02/19 Assessment & Plan (02/17/2025 4:32 PM EDT): Home med: metoprolol tartrate 50mg BID, valsartan 160mg daily, amlodipine 5mg daily, lasix 20mg daily Recent MEGAN on 02/02/2025 showed an LVEF of 50-55% and good function of valves with no vegetations. Coumadin goal INR 2.5-3. Initial INR on admission was 3.7. A.m. of 02/15 at 2.7. - 4 mg warfarin x1 under the direction of pharmacy -allow permissive HTN per neuro. No intervention unless BP > 220. 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 Continue outpatient follow-up. Assessment & Plan (02/15/2025 3:25 PM EDT): Home med: metoprolol tartrate 50mg BID, valsartan 160mg daily, amlodipine 5mg daily, lasix 20mg daily Recent MEGAN on 02/02/2025 showed an LVEF of 50-55% and good function of valves with no vegetations. Coumadin goal INR 2.5-3. Initial INR on admission was 3.7. A.m. of 02/15 at 2.7. -Started 3 mg warfarin x1 under the direction of pharmacy -allow permissive HTN per neuro. No intervention unless BP > 220. 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 Continue outpatient follow-up. Hypercholesterolemia 02/08/2025 Assessment & Plan (03/09/2025 11:05 AM EDT): Home regimen: Atorvastatin 80 mg 02/14 Lipid panel with total cholesterol 107, LDL 55 - Continue home regimen Assessment & Plan (03/08/2025 12:53 PM EDT): Home regimen: Atorvastatin 80 mg 9/22 Lipid panel with total cholesterol 107, LDL 55 - Continue home regimen Assessment & Plan (03/07/2025 3:45 PM EDT): Home regimen: Atorvastatin 80 mg 9/22 Lipid panel with total cholesterol 107, LDL 55 - Continue home regimen Assessment & Plan (03/06/2025 9:25 AM EDT): Home regimen: Atorvastatin 80 mg 9/22 Lipid panel with total cholesterol 107, LDL 55 - Continue home regimen Assessment & Plan (03/05/2025 9:46 AM EDT): Home regimen: Atorvastatin 80 mg 9/22 Lipid panel with total cholesterol 107, LDL 55 - Continue home regimen Assessment & Plan (03/04/2025 12:24 PM EDT): Home regimen: Atorvastatin 80 mg 9/22 Lipid panel with total cholesterol 107, LDL 55 - Continue home regimen Assessment & Plan (03/03/2025 9:48 AM EDT): Home regimen: Atorvastatin 80 mg 9/22 Lipid panel with total cholesterol 107, LDL 55 - Continue home regimen Assessment & Plan (03/02/2025 4:30 PM EDT): Home regimen: Atorvastatin 80 mg 9/22 Lipid panel with total cholesterol 107, LDL 55 - Continue home regimen Assessment & Plan (03/01/2025 12:46 PM EDT): Home regimen: Atorvastatin 80 mg 9/22 Lipid panel with total cholesterol 107, LDL 55 - Continue home regimen Assessment & Plan (02/28/2025 1:04 PM EDT): Home regimen: Atorvastatin 80 mg 9/22 Lipid panel with total cholesterol 107, LDL 55 - Continue home regimen Assessment & Plan (02/28/2025 9:46 AM EDT): Home regimen: Atorvastatin 80 mg 9/22 Lipid panel with total cholesterol 107, LDL 55 Plan: - Continue home regimen Assessment & Plan (02/28/2025 12:33 PM EDT): Home regimen: Atorvastatin 80 mg 9/22 Lipid panel with total cholesterol 107, LDL 55 - Continue home regimen Assessment & Plan (02/26/2025 11:33 AM EDT): Home regimen: Atorvastatin 80 mg 9/22 Lipid panel with total cholesterol 107, LDL 55 - Continue home regimen Assessment & Plan (02/25/2025 7:28 AM EDT): Home regimen: Atorvastatin 80 mg 9/22 Lipid panel with total cholesterol 107, LDL 55 - Continue home regimen Assessment & Plan (02/24/2025 12:26 PM EDT): Home regimen: Atorvastatin 80 mg 9/22 Lipid panel with total cholesterol 107, LDL 55 - Continue home regimen Assessment & Plan (02/25/2025 3:59 PM EDT): Home regimen: Atorvastatin 80 mg 9/22 Lipid panel with total cholesterol 107, LDL 55 - Continue home regimen Assessment & Plan (02/23/2025 7:08 AM EDT): Home regimen: Atorvastatin 80 mg 9/22 Lipid panel with total cholesterol 107, LDL 55 - Continue home regimen Assessment & Plan (02/22/2025 12:32 PM EDT): Home regimen: Atorvastatin 80 mg 9/22 Lipid panel with total cholesterol 107, LDL 55 - Continue home regimen Assessment & Plan (02/22/2025 7:41 AM EDT): Home regimen: Atorvastatin 80 mg 9/22 Lipid panel with total cholesterol 107, LDL 55 - Continue home regimen Assessment & Plan (02/21/2025 1:30 PM EDT): Home regimen: Atorvastatin 80 mg 9/22 Lipid panel with total cholesterol 107, LDL 55 - Continue home regimen Assessment & Plan (02/21/2025 7:01 AM EDT): Home regimen: Atorvastatin 80 mg 02/14 Lipid panel with total cholesterol 107, LDL 55 - Continue home regimen Assessment & Plan (02/20/2025 12:02 PM EDT): Home regimen: Atorvastatin 80 mg 02/14 Lipid panel with total cholesterol 107, LDL 55 - Continue home regimen Assessment & Plan (02/19/2025 12:51 PM EDT): Home regimen: Atorvastatin 80 mg 02/14 Lipid panel with total cholesterol 107, LDL 55 - Continue home regimen Assessment & Plan (02/17/2025 4:32 PM EDT): 02/14 lipid panel with total cholesterol 107, LDL 55 Continuing with atorvastatin 80 mg daily Assessment & Plan (02/15/2025 3:25 PM EDT): 02/14 lipid panel with total cholesterol 107, LDL 55 Continuing with atorvastatin 80 mg daily Seizures (CMS/HCC V24, CMS/HCC V28) 02/01/2025 Assessment & Plan (03/09/2025 11:05 AM EDT): Long-term EEG this admission did not show any epileptiform discharges or seizures. - Continue Keppra 500 mg twice daily Assessment & Plan (03/08/2025 12:53 PM EDT): Long-term EEG this admission did not show any epileptiform discharges or seizures. - Continue Keppra 500 mg twice daily Assessment & Plan (03/07/2025 3:45 PM EDT): Long-term EEG this admission did not show any epileptiform discharges or seizures. - Continue Keppra 500 mg twice daily Assessment & Plan (03/06/2025 9:25 AM EDT): Long-term EEG this admission did not show any epileptiform discharges or seizures. - Continue Keppra 500 mg twice daily Assessment & Plan (03/05/2025 9:46 AM EDT): Long-term EEG this admission did not show any epileptiform discharges or seizures. - Continue Keppra 500 mg twice daily Assessment & Plan (03/04/2025 12:24 PM EDT): Long-term EEG this admission did not show any epileptiform discharges or seizures. - Continue Keppra 500 mg twice daily Assessment & Plan (03/03/2025 9:48 AM EDT): Long-term EEG this admission did not show any epileptiform discharges or seizures. - Continue Keppra 500 mg twice daily Assessment & Plan (03/02/2025 4:30 PM EDT): Long-term EEG this admission did not show any epileptiform discharges or seizures. - Continue Keppra 500 mg twice daily Assessment & Plan (03/01/2025 12:46 PM EDT): Long-term EEG this admission did not show any epileptiform discharges or seizures. - Continue Keppra 500 mg twice daily Assessment & Plan (02/28/2025 1:04 PM EDT): Long-term EEG this admission did not show any epileptiform discharges or seizures. - Continue Keppra 500 mg twice daily Assessment & Plan (02/28/2025 9:46 AM EDT): Long-term EEG this admission did not show any epileptiform discharges or seizures. Plan: - Continue Keppra 500 mg twice daily Assessment & Plan (02/28/2025 12:33 PM EDT): Long-term EEG this admission did not show any epileptiform discharges or seizures. - Continue Keppra 500 mg twice daily Assessment & Plan (02/26/2025 11:33 AM EDT): Long-term EEG this admission did not show any epileptiform discharges or seizures. - Continue Keppra 500 mg twice daily Assessment & Plan (02/25/2025 7:28 AM EDT): Long-term EEG this admission did not show any epileptiform discharges or seizures. - Continue Keppra 500 mg twice daily Assessment & Plan (02/24/2025 12:26 PM EDT): Long-term EEG this admission did not show any epileptiform discharges or seizures. - Continue Keppra 500 mg twice daily Assessment & Plan (02/25/2025 3:59 PM EDT): Long-term EEG this admission did not show any epileptiform discharges or seizures. - Continue Keppra 500 mg twice daily Assessment & Plan (02/23/2025 7:08 AM EDT): Long-term EEG this admission did not show any epileptiform discharges or seizures. - Continue Keppra 500 mg twice daily Assessment & Plan (02/22/2025 12:32 PM EDT): Long-term EEG this admission did not show any epileptiform discharges or seizures. - Continue Keppra 500 mg twice daily Assessment & Plan (02/22/2025 7:41 AM EDT): Long-term EEG this admission did not show any epileptiform discharges or seizures. - Continue Keppra 500 mg twice daily Assessment & Plan (02/21/2025 1:30 PM EDT): Long-term EEG this admission did not show any epileptiform discharges or seizures. - Continue Keppra 500 mg twice daily Assessment & Plan (02/21/2025 7:01 AM EDT): Long-term EEG this admission did not show any epileptiform discharges or seizures. - Continue Keppra 500 mg twice daily Assessment & Plan (02/20/2025 12:02 PM EDT): Long-term EEG this admission did not show any epileptiform discharges or seizures. - Continue Keppra 500 mg twice daily Assessment & Plan (02/19/2025 7:00 AM EDT): Long-term EEG this admission did not show any epileptiform discharges or seizures. 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 She underwent left ICA angioplasty on 02/16. Following that, her exam showed new weakness and CT head showed further new bilateral hemispheric strokes on 02/17. There were further discussions regarding possible additional angioplasty, however was decided against it. Patient was made DNR/DNI. After that, her exam remained stable and she has been downgraded to MUKESH. She has continued anticoagulation and has been downgraded to floor-level care showing no new neurological findings. CT head done on 02/26 for possible change in mental status showed expected evolutionary changes of previously identified infarctions. No intracranial hemorrhage or other acute intracranial pathology. Awaiting placement at [facility] facility. - Every 4 hour NIHSS and telemetry - Continue aspirin for intracranial atherosclerosis - Continue atorvastatin 80 mg - PT/OT - Palliative care consulted, appreciate recommendations - INR 2.4, give 5 mg warfarin today; continue with lovenox for bridging Assessment & Plan (03/08/2025 12:53 PM EDT): Acute/subacute left frontal ischemic infarct Intracranial atherosclerosis History of multifocal bilateral [place] territory strokes History of right cerebellar stroke S/p left ICA angioplasty Home medications: Atorvastatin 40 mg, Warfarin 2 mg Patient has had a complex neurological course, with multiple worsening infarcts. She underwent left ICA angioplasty on 02/16. Following that, her exam showed new weakness and CT head showed further new bilateral hemispheric strokes on 02/17. There were further discussions regarding possible additional angioplasty, however was decided against it. Patient was made DNR/DNI. After that, her exam remained stable and she has been downgraded to MUKESH. She has continued anticoagulation and has been downgraded to floor-level care showing no new neurological findings. CT head done on 02/26 for possible change in mental status showed expected evolutionary changes of previously identified infarctions. No intracranial hemorrhage or other acute intracranial pathology. Awaiting placement at [facility] facility. 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 She underwent left ICA angioplasty on 02/16. Following that, her exam showed new weakness and CT head showed further new bilateral hemispheric strokes on 02/17. There were further discussions regarding possible additional angioplasty, however was decided against it. Patient was made DNR/DNI. After that, her exam remained stable and she has been downgraded to MUKESH. She has continued anticoagulation and has been downgraded to floor-level care showing no new neurological findings. CT head done on 02/26 for possible change in mental status showed expected evolutionary changes of previously identified infarctions. No intracranial hemorrhage or other acute intracranial pathology. Awaiting placement at [facility] facility. - Every 4 hour NIHSS and telemetry - Continue aspirin for intracranial atherosclerosis - Continue atorvastatin 80 mg - PT/OT - Palliative care consulted, appreciate recommendations - INR 1.9, give 6 mg warfarin today; continue with lovenox for bridging Assessment & Plan (03/06/2025 12:01 PM EDT): Acute/subacute left frontal ischemic infarct Intracranial atherosclerosis History of multifocal bilateral [place] territory strokes History of right cerebellar stroke S/p left ICA angioplasty Home medications: Atorvastatin 40 mg, Warfarin 2 mg Patient has had a complex neurological course, with multiple worsening infarcts. She underwent left ICA angioplasty on 02/16. Following that, her exam showed new weakness and CT head showed further new bilateral hemispheric strokes on 02/17. There were further discussions regarding possible additional angioplasty, however was decided against it. Patient was made DNR/DNI. After that, her exam remained stable and she has been downgraded to MUKESH. She has continued anticoagulation and has been downgraded to floor-level care showing no new neurological findings. CT head done on 02/26 for possible change in mental status showed expected evolutionary changes of previously identified infarctions. No intracranial hemorrhage or other acute intracranial pathology. Awaiting placement at [facility] facility. - Every 4 hour NIHSS and telemetry - Continue aspirin for intracranial atherosclerosis - Continue atorvastatin 80 mg - PT/OT - Palliative care consulted, appreciate recommendations - INR 1.9, give 6 mg warfarin today; continue with lovenox for bridging Assessment & Plan (03/05/2025 9:46 AM EDT): Acute/subacute left frontal ischemic infarct Intracranial atherosclerosis History of multifocal bilateral [place] territory strokes History of right cerebellar stroke S/p left ICA angioplasty Home medications: Atorvastatin 40 mg, Warfarin 2 mg Patient has had a complex neurological course, with multiple worsening infarcts. She underwent left ICA angioplasty on 02/16. Following that, her exam showed new weakness and CT head showed further new bilateral hemispheric strokes on 02/17. There were further discussions regarding possible additional angioplasty, however was decided against it. Patient was made DNR/DNI. After that, her exam remained stable and she has been downgraded to MUKESH. She has continued anticoagulation and has been downgraded to floor-level care showing no new neurological findings. CT head done on 02/26 for possible change in mental status showed expected evolutionary changes of previously identified infarctions. No intracranial hemorrhage or other acute intracranial pathology. Awaiting placement at [facility] facility. - Every 4 hour NIHSS and telemetry - Continue aspirin for intracranial atherosclerosis - Continue atorvastatin 80 mg - PT/OT - Palliative care consulted, appreciate recommendations - INR 2.2, give 5 mg warfarin today; pt started on heparin bridge infusion (no bolus) today Assessment & Plan (03/04/2025 12:41 PM EDT): Acute/subacute left frontal ischemic infarct Intracranial atherosclerosis History of multifocal bilateral [place] territory strokes History of right cerebellar stroke S/p left ICA angioplasty Home medications: Atorvastatin 40 mg, Warfarin 2 mg Patient has had a complex neurological course, with multiple worsening infarcts. She underwent left ICA angioplasty on 02/16. Following that, her exam showed new weakness and CT head showed further new bilateral hemispheric strokes on 02/17. There were further discussions regarding possible additional angioplasty, however was decided against it. Patient was made DNR/DNI. After that, her exam remained stable and she has been downgraded to MUKESH. She has continued anticoagulation and has been downgraded to floor-level care showing no new neurological findings. CT head done on 02/26 for possible change in mental status showed expected evolutionary changes of previously identified infarctions. No intracranial hemorrhage or other acute intracranial pathology. Awaiting placement at [facility] facility. - Every 4 hour NIHSS and telemetry - Continue aspirin for intracranial atherosclerosis - Continue atorvastatin 80 mg - PT/OT - Palliative care consulted, appreciate recommendations - INR 2.1, give 5 mg warfarin today; we have reached out to cardiology to determine when the patient would need bridging therapy again. Assessment & Plan (03/03/2025 9:48 AM EDT): Acute/subacute left frontal ischemic infarct Intracranial atherosclerosis History of multifocal bilateral [place] territory strokes History of right cerebellar stroke S/p left ICA angioplasty Home medications: Atorvastatin 40 mg, Warfarin 2 mg Patient has had a complex neurological course, with multiple worsening infarcts. She underwent left ICA angioplasty on 02/16. Following that, her exam showed new weakness and CT head showed further new bilateral hemispheric strokes on 02/17. There were further discussions regarding possible additional angioplasty, however was decided against it. Patient was made DNR/DNI. After that, her exam remained stable and she has been downgraded to MUKESH. She has continued anticoagulation and has been downgraded to floor-level care showing no new neurological findings. CT head done on 02/26 for possible change in mental status showed expected evolutionary changes of previously identified infarctions. No intracranial hemorrhage or other acute intracranial pathology. Awaiting placement at [facility] facility. - Every 4 hour NIHSS and telemetry - Continue aspirin for intracranial atherosclerosis - Continue atorvastatin 80 mg - PT/OT - Palliative care consulted, appreciate recommendations - INR 2.3, give 5 mg warfarin today Assessment & Plan (03/02/2025 4:56 PM EDT): Acute/subacute left frontal ischemic infarct Intracranial atherosclerosis History of multifocal bilateral [place] territory strokes History of right cerebellar stroke S/p left ICA angioplasty Home medications: Atorvastatin 40 mg, Warfarin 2 mg Patient has had a complex neurological course, with multiple worsening infarcts. She underwent left ICA angioplasty on 02/16. Following that, her exam showed new weakness and CT head showed further new bilateral hemispheric strokes on 02/17. There were further discussions regarding possible additional angioplasty, however was decided against it. Patient was made DNR/DNI. After that, her exam remained stable and she has been downgraded to MUKESH. She has continued anticoagulation and has been downgraded to floor-level care showing no new neurological findings. CT head done on 02/26 for possible change in mental status showed expected evolutionary changes of previously identified infarctions. No intracranial hemorrhage or other acute intracranial pathology. Awaiting placement at [facility] facility. - Every 4 hour NIHSS and telemetry - Continue aspirin for intracranial atherosclerosis - Continue atorvastatin 80 mg - PT/OT - Palliative care consulted, appreciate recommendations - INR therapeutic, continue warfarin 4 mg Assessment & Plan (03/01/2025 12:46 PM EDT): Acute/subacute left frontal ischemic infarct Intracranial atherosclerosis History of multifocal bilateral [place] territory strokes History of right cerebellar stroke S/p left ICA angioplasty Home medications: Atorvastatin 40 mg, Warfarin 2 mg Patient has had a complex neurological course, with multiple worsening infarcts. She underwent left ICA angioplasty on 02/16. Following that, her exam showed new weakness and CT head showed further new bilateral hemispheric strokes on 02/17. There were further discussions regarding possible additional angioplasty, however was decided against it. Patient was made DNR/DNI. After that, her exam remained stable and she has been downgraded to MUKESH. She has continued anticoagulation and has been downgraded to floor-level care showing no new neurological findings. CT head done on 02/26 for possible change in mental status showed expected evolutionary changes of previously identified infarctions. No intracranial hemorrhage or other acute intracranial pathology. Awaiting placement at [facility] facility. - Every 4 hour NIHSS and telemetry - Continue aspirin for intracranial atherosclerosis - Continue atorvastatin 80 mg - PT/OT - Palliative care consulted, appreciate recommendations - INR 2.4 with goal of 2.5-3; give another 4 mg warfarin today Assessment & Plan (02/28/2025 1:04 PM EDT): Acute/subacute left frontal ischemic infarct Intracranial atherosclerosis History of multifocal bilateral [place] territory strokes History of right cerebellar stroke S/p left ICA angioplasty Home medications: Atorvastatin 40 mg, Warfarin 2 mg Patient has had a complex neurological course, with multiple worsening infarcts. She underwent left ICA angioplasty on 02/16. Following that, her exam showed new weakness and CT head showed further new bilateral hemispheric strokes on 02/17. There were further discussions regarding possible additional angioplasty, however was decided against it. Patient was made DNR/DNI. After that, her exam remained stable and she has been downgraded to MUKESH. She has continued anticoagulation and has been downgraded to floor-level care showing no new neurological findings. CT head done on 02/26 for possible change in mental status showed expected evolutionary changes of previously identified infarctions. No intracranial hemorrhage or other acute intracranial pathology. Awaiting placement at [facility] facility. - Every 4 hour NIHSS and telemetry - Continue aspirin for intracranial atherosclerosis - Continue atorvastatin 80 mg - PT/OT - Palliative care consulted, appreciate recommendations - Warfarin 4 mg given on 02/27 Assessment & Plan (02/28/2025 12:57 PM EDT): Acute/subacute left frontal ischemic infarct Intracranial atherosclerosis History of multifocal bilateral [place] territory strokes History of right cerebellar stroke S/p left ICA angioplasty Home medications: Atorvastatin 40 mg, Warfarin 2 mg Patient has had a complex neurological course, with multiple worsening infarcts. She underwent left ICA angioplasty on 02/16. Following that, her exam showed new weakness and CT head showed further new bilateral hemispheric strokes on 02/17. There were further discussions regarding possible additional angioplasty, however was decided against it. Patient was made DNR/DNI. After that, her exam remained stable and she has been downgraded to MUKESH. She has continued anticoagulation and has been downgraded to floor-level care showing no new neurological findings. CT head done on 02/26 for possible change in mental status showed expected evolutionary changes of previously identified infarctions. No intracranial hemorrhage or other acute intracranial pathology. Plan: - Awaiting placement at [facility] facility. - Every 4 hour NIHSS and telemetry - Continue aspirin for intracranial atherosclerosis - Continue atorvastatin 80 mg - PT/OT - Palliative care consulted, appreciate recommendations - Warfarin 4 mg given again on 02/28 Assessment & Plan (02/28/2025 12:33 PM EDT): Acute/subacute left frontal ischemic infarct Intracranial atherosclerosis History of multifocal bilateral [place] territory strokes History of right cerebellar stroke S/p left ICA angioplasty Home medications: Atorvastatin 40 mg, Warfarin 2 mg Patient has had a complex neurological course, with multiple worsening infarcts. She underwent left ICA angioplasty on 02/16. Following that, her exam showed new weakness and CT head showed further new bilateral hemispheric strokes on 02/17. There were further discussions regarding possible additional angioplasty, however was decided against it. Patient was made DNR/DNI. After that, her exam remained stable and she has been downgraded to MUKESH. She has continued anticoagulation and has been downgraded to floor-level care showing no new neurological findings. CT head done on 02/26 for possible change in mental status showed expected evolutionary changes of previously identified infarctions. No intracranial hemorrhage or other acute intracranial pathology. Awaiting placement at [facility] facility. - Every 4 hour NIHSS and telemetry - Continue aspirin for intracranial atherosclerosis - Continue atorvastatin 80 mg - PT/OT - Palliative care consulted, appreciate recommendations - Warfarin 4 mg given on 02/27 Assessment & Plan (02/26/2025 11:33 AM EDT): Acute/subacute left frontal ischemic infarct Intracranial atherosclerosis History of multifocal bilateral [place] territory strokes History of right cerebellar stroke S/p left ICA angioplasty Home medications: Atorvastatin 40 mg, Warfarin 2 mg Patient has had a complex neurological course, with multiple worsening infarcts. She underwent left ICA angioplasty on 02/16. Following that, her exam showed new weakness and CT head showed further new bilateral hemispheric strokes on 02/17. There were further discussions regarding possible additional angioplasty, however was decided against it. Patient was made DNR/DNI. After that, her exam remained stable and she has been downgraded to MUKESH. She has continued anticoagulation and has been downgraded to floor-level care showing no new neurological findings. Awaiting placement at [facility] facility. - Every 4 hour NIHSS and telemetry - Continue aspirin for intracranial atherosclerosis - Continue atorvastatin 80 mg - PT/OT - Palliative care consulted, appreciate recommendations - Warfarin 6 mg given on 02/26 Assessment & Plan (02/25/2025 4:06 PM EDT): Acute/subacute left frontal ischemic infarct Intracranial atherosclerosis History of multifocal bilateral [place] territory strokes History of right cerebellar stroke S/p left ICA angioplasty Home medications: Atorvastatin 40 mg, Warfarin 2 mg Patient has had a complex neurological course, with multiple worsening infarcts. She underwent left ICA angioplasty on 02/16. Following that, her exam showed new weakness and CT head showed further new bilateral hemispheric strokes on 02/17. There were further discussions regarding possible additional angioplasty, however was decided against it. Patient was made DNR/DNI. After that, her exam remained stable and she has been downgraded to MUKESH. She has continued anticoagulation and has been downgraded to floor-level care showing no new neurological findings. Awaiting placement at [facility] facility. - Every 4 hour NIHSS and telemetry - Continue aspirin for intracranial atherosclerosis - Continue atorvastatin 80 mg - PT/OT - Palliative care consulted, appreciate recommendations - Warfarin 4 mg given on 02/25. Per pharmacy, the effect of the 4 mg doses that have been given this week will likely appear tomorrow. Assessment & Plan (02/24/2025 12:26 PM EDT): Acute/subacute left frontal ischemic infarct Intracranial atherosclerosis History of multifocal bilateral [place] territory strokes History of right cerebellar stroke S/p left ICA angioplasty Home medications: Atorvastatin 40 mg, Warfarin 4 mg Patient has had a complex neurological course, with multiple worsening infarcts. She underwent left ICA angioplasty on 02/16. Following that, her exam showed new weakness and CT head showed further new bilateral hemispheric strokes on 02/17. There were further discussions regarding possible additional angioplasty, however was decided against it. Patient was made DNR/DNI. After that, her exam remained stable and she has been downgraded to MUKESH. She has continued anticoagulation and has been downgraded to floor-level care showing no new neurological findings. Awaiting placement at [facility] facility. - Every 4 hour NIHSS and telemetry - Continue aspirin for intracranial atherosclerosis - Continue atorvastatin 80 mg - PT/OT - Palliative care consulted, appreciate recommendations - Consulting stroke team concerning possible heparin bridge for MAVR, currently on 4 mg Warfarin, INR = 1.5 Assessment & Plan (02/25/2025 3:59 PM EDT): Acute/subacute left frontal ischemic infarct Intracranial atherosclerosis History of multifocal bilateral [place] territory strokes History of right cerebellar stroke S/p left ICA angioplasty Home medications: Atorvastatin 40 mg, Warfarin 2 mg Patient has had a complex neurological course, with multiple worsening infarcts. She underwent left ICA angioplasty on 02/16. Following that, her exam showed new weakness and CT head showed further new bilateral hemispheric strokes on 02/17. There were further discussions regarding possible additional angioplasty, however was decided against it. Patient was made DNR/DNI. After that, her exam remained stable and she has been downgraded to MUKESH. She has continued anticoagulation and has been downgraded to floor-level care showing no new neurological findings. - Every 4 hour NIHSS and telemetry - Continue aspirin for intracranial atherosclerosis - Continue atorvastatin 80 mg - PT/OT - Palliative care consulted, appreciate recommendations Assessment & Plan (02/23/2025 1:38 PM EDT): Acute/subacute left frontal ischemic infarct Intracranial atherosclerosis History of multifocal bilateral [place] territory strokes History of right cerebellar stroke S/p left ICA angioplasty Home medications: Atorvastatin 40 mg, Warfarin 4 mg Patient has had a complex neurological course, with multiple worsening infarcts. She underwent left ICA angioplasty on 02/16. Following that, her exam showed new weakness and CT head showed further new bilateral hemispheric strokes on 02/17. There were further discussions regarding possible additional angioplasty, however was decided against it. Patient was made DNR/DNI. After that, her exam remained stable and she has been downgraded to MUKESH. She has continued anticoagulation and has been downgraded to floor-level care showing no new neurological findings. - Every 4 hour NIHSS and telemetry - Continue aspirin for intracranial atherosclerosis - Continue atorvastatin 80 mg - PT/OT - Palliative care consulted, appreciate recommendations Assessment & Plan (02/22/2025 12:32 PM EDT): Acute/subacute left frontal ischemic infarct Intracranial atherosclerosis History of multifocal bilateral [place] territory strokes History of right cerebellar stroke S/p left ICA angioplasty Home medications: Atorvastatin 40 mg, Warfarin 4 mg Patient has had a complex neurological course, with multiple worsening infarcts. She underwent left ICA angioplasty on 02/16. Following that, her exam showed new weakness and CT head showed further new bilateral hemispheric strokes on 02/17. There were further discussions regarding possible additional angioplasty, however was decided against it. Patient was made DNR/DNI. After that, her exam remained stable and she has been downgraded to MUKESH. She has continued anticoagulation and has been downgraded to floor-level care showing no new neurological findings. - Neurology following, appreciate recommendations - Every 4 hour NIHSS and telemetry - Continue aspirin for intracranial atherosclerosis - Continue atorvastatin 80 mg - PT/OT - COMPUTER APPLICATION DEVELOPER eval - Palliative care consulted, appreciate recommendations Assessment & Plan (02/22/2025 11:17 AM EDT): Acute/subacute left frontal ischemic infarct Intracranial atherosclerosis History of multifocal bilateral [place] territory strokes History of right cerebellar stroke S/p left ICA angioplasty Patient has had a complex neurological course, with multiple worsening infarcts. She underwent left ICA angioplasty on 02/16. Following that, her exam showed new weakness and CT head showed further new bilateral hemispheric strokes on 02/17. There were further discussions regarding possible additional angioplasty, however was decided against it. Patient was made DNR/DNI. After that, her exam remained stable and she has been downgraded to MUKESH. She has continued anticoagulation and has been downgraded to floor-level care showing no new neurological findings. Home medications: 40 mg atorvastatin, 2 mg warfarin - Q4 neuro checks, floor downgrade, neuro following, recommendations appreciated - Aspirin 81 mg started 02/16, home atorvastatin resumed - Warfarin 2 mg (INR 2 on 2 mg, target 2.5-3) - increase Metoprolol to 50 mg BID - PT/OT and COMPUTER APPLICATION DEVELOPER f/u in inpatient rehab - Palliative care consulted, family opting for rehabilitation, appreciate recommendations Assessment & Plan (02/21/2025 2:23 PM EDT): Acute/subacute left frontal ischemic infarct Intracranial atherosclerosis History of multifocal bilateral [place] territory strokes History of right cerebellar stroke S/p left ICA angioplasty Patient has had a complex neurological course, with multiple worsening infarcts. She underwent left ICA angioplasty on 02/16. Following that, her exam showed new weakness and CT head showed further new bilateral hemispheric strokes on 02/17. There were further discussions regarding possible additional angioplasty, however was decided against it. Patient was made DNR/DNI. After that, her exam remained stable and she has been downgraded to MUKESH. Would need continued antiplatelet therapy and anticoagulation going forward. Home medications: 40 mg atorvastatin, 4 mg warfarin - Q4 neuro checks, MUKESH downgrade, neuro following, recommendations appreciated - Aspirin 81 mg started 02/16, home atorvastatin resumed - Warfarin increase to 4 mg (INR 2 on 2 mg, target 2.5-3) - No longer permitting hypertension therefore increase Metoprolol to 25 mg BID - PT/OT and COMPUTER APPLICATION DEVELOPER outpatient f/u - Palliative care consulted, family opting for rehabilitation, appreciate recommendations Assessment & Plan (02/21/2025 2:34 PM EDT): Acute/subacute left frontal ischemic infarct Intracranial atherosclerosis History of multifocal bilateral SHILPI territory strokes History of right cerebellar stroke S/p left ICA angioplasty Patient has had a complex neurological course, with multiple worsening infarcts. She underwent left ICA angioplasty on 02/16. Following that, her exam showed new weakness and CT head showed further new bilateral hemispheric strokes on 02/17. There were further discussions regarding possible additional angioplasty, however was decided against it. Patient was made DNR/DNI. After that, her exam remained stable and she has been downgraded to MUKESH. Would need continued antiplatelet therapy and anticoagulation going forward. 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 She underwent left ICA angioplasty on 02/16. Following that, her exam showed new weakness and CT head showed further new bilateral hemispheric strokes on 02/17. There were further discussions regarding possible additional angioplasty, however was decided against it. Patient was made DNR/DNI. After that, her exam remained stable and she has been downgraded to MUKESH. Would need continued antiplatelet therapy and anticoagulation going forward. - Neurology following, appreciate recommendations - Every 2 hour NIHSS and telemetry - Continue aspirin for intracranial atherosclerosis - Continue atorvastatin 80 mg - Can continue permissive hypertension with sBP <180 for 24 hours. MAP >65. Afterwards gradual normalization while avoiding hypotension and maintaining the MAP. - PT/OT - COMPUTER APPLICATION DEVELOPER eval - Palliative care consulted, appreciate recommendations Assessment & Plan (02/19/2025 12:51 PM EDT): Acute/subacute left frontal ischemic infarct Intracranial atherosclerosis History of multifocal bilateral SHIPLI territory strokes History of right cerebellar stroke S/p left ICA angioplasty Patient has had a complex neurological course, with multiple worsening infarcts. She underwent left ICA angioplasty on 02/16. Following that, her exam showed new weakness and CT head showed further new bilateral hemispheric strokes on 02/17. There were further discussions regarding possible additional angioplasty, however was decided against it. Patient was made DNR/DNI. After that, her exam remained stable and she has been downgraded to MUKESH. Would need continued antiplatelet therapy and anticoagulation going forward. - Neurology following, appreciate recommendations - Every 2 hour NIHSS and telemetry - Continue aspirin for intracranial atherosclerosis - Continue atorvastatin 80 mg - Can continue permissive hypertension with sBP <180 for 24 hours. MAP >65. Afterwards gradual normalization while avoiding hypotension and maintaining the MAP. - PT/OT - COMPUTER APPLICATION DEVELOPER eval - Palliative care consulted, appreciate recommendations Assessment & Plan (02/17/2025 4:32 PM EDT): Per documentation in mid Sep she still had 4/5 right upper and lower extremities strength (aside from 1/5 right dorsiflexion). Currently does not move right upper extremity besides some director of instruction strength to right side, less than left , and cannot move right lower extremity (could not wiggle her right toes). CT head, CTA, CT cerebral perfusion, MRI brain overall suggestive of new left frontal lobe SHILPI infarction/extension of previous stroke. Initial cerebral EEG monitoring without epileptiform discharges, although has history of seizures from prior CVAs. Low suspicion for metabolic encephalopathy 2/2 infection; has been afebrile, no white blood cell count. Further assessment by COMPUTER APPLICATION DEVELOPER mild dysarthria, along with receptive/expressive aphasia. -prison EEG -keppra 500mg BID. Keppra level -Vascular neurology Dr. Vargas consulted, appreciate his recommendations -Neuro IR Dr. Styles consulted, appreciate his recommendations for DSA -q4hr neuro check and NIHSS -continue statin - Holding aspirin. Pending final confirmation with Neurology Assessment & Plan (02/15/2025 3:25 PM EDT): Per documentation in mid Sep she still had 4/5 right upper and lower extremities strength (aside from 1/5 right dorsiflexion). Currently does not move right upper extremity besides some director of instruction strength to right side, less than left , and cannot move right lower extremity (could not wiggle her right toes). CT head, CTA, CT cerebral perfusion, MRI brain overall suggestive of new left frontal lobe SHILPI infarction/extension of previous stroke. Initial cerebral EEG monitoring without epileptiform discharges, although has history of seizures from prior CVAs. Low suspicion for metabolic encephalopathy 2/2 infection; has been afebrile, no white blood cell count. -prison EEG -keppra 500mg BID. Keppra level -Vascular neurology Dr. Vargas consulted, appreciate his recommendations -Neuro IR Dr. Styles consulted, appreciate his recommendations for DSA on 02/16 -q2h neuro check and NIHSS -continue statin -keep off of aspirin before this admission by Neurology. Pending final confirmation with Neurology Aortic stenosis 05/16/2020 Assessment & Plan (08/30/2024 [...] this time as she had one in [place]. Assessment & Plan (07/03/2024 6:24 PM EST): Status post bioprosthetic aortic valve with some slight increase in gradient. Understands need to continue with anticoagulation. Continues with warfarin without bleeding DM (diabetes mellitus) ([facility] V24, [facility] V28 ) Assessment & Plan (03/09/2025 11:05 AM EDT): Home regimen: Jardiance 10 mg, Glargine 30 units daily, pioglitazone 30 mg A1c: 8.3% (02/14) Blood glucose has been consistently elevated from 250-300. Patient is on a diabetic diet. She was previously receiving glargine 28 units daily. Varying levels of elevated glucose around meals, bu periods where lower end and short acting insulin being held. - Continue Glargine 30 units daily - Continue insulin lispro 12 units breakfast and lunch, 16 dinner, adjust dosing based on percentage of meal consumed if give it after within 15 min - Discontinue sliding scale 03/07 - Continue monitoring glucose Assessment & Plan (03/08/2025 12:53 PM EDT): Home regimen: Jardiance 10 mg, Glargine 30 units daily, pioglitazone 30 mg A1c: 8.3% (02/14) Blood glucose has been consistently elevated from 250-300. Patient is on a diabetic diet. She was previously receiving glargine 28 units daily. Varying levels of elevated glucose around meals, bu periods where lower end and short acting insulin being held. - Continue Glargine 30 units daily - Continue insulin lispro 12 units breakfast and lunch, 16 dinner, adjust dosing based on percentage of meal consumed if give it after within 15 min - Discontinue sliding scale 03/07 - Continue monitoring glucose Assessment & Plan (03/07/2025 3:45 PM EDT): Home regimen: Jardiance 10 mg, Glargine 30 units daily, pioglitazone 30 mg A1c: 8.3% (02/14) Blood glucose has been consistently elevated from 250-300. Patient is on a diabetic diet. She was previously receiving glargine 28 units daily. Varying levels of elevated glucose around meals, bu periods where lower end and short acting insulin being held. - Continue Glargine 30 units daily - Continue insulin lispro 12 units breakfast and lunch, 16 dinner, adjust dosing based on percentage of meal consumed if give it after within 15 min - Discontinue sliding scale 03/07 - Continue monitoring glucose Assessment & Plan (03/06/2025 9:25 AM EDT): Home regimen: Jardiance 10 mg, Glargine 30 units daily, pioglitazone 30 mg A1c: 8.3% (02/14) Blood glucose has been consistently elevated from 250-300. Patient is on a diabetic diet. She was previously receiving glargine 28 units daily. - Continue Glargine 30 units daily - Continue insulin lispro 12 units breakfast and lunch, 16 dinner - Sliding scale ACHS Assessment & Plan (03/05/2025 9:46 AM EDT): Home regimen: Jardiance 10 mg, Glargine 30 units daily, pioglitazone 30 mg A1c: 8.3% (02/14) Blood glucose has been consistently elevated from 250-300. Patient is on a diabetic diet. She was previously receiving glargine 28 units daily. - Continue Glargine 30 units daily - Continue insulin lispro 12 units breakfast and lunch, 16 dinner - Sliding scale ACHS Assessment & Plan (03/04/2025 12:41 PM EDT): Home regimen: Jardiance 10 mg, Glargine 30 units daily, pioglitazone 30 mg A1c: 8.3% (02/14) Blood glucose has been consistently elevated from 250-300. Patient is on a diabetic diet. She was previously receiving glargine 28 units daily. - Continue Glargine 30 units daily - Continue insulin lispro 12 units breakfast and lunch, 16 dinner - Sliding scale ACHS Assessment & Plan (03/03/2025 9:48 AM EDT): Home regimen: Jardiance 10 mg, Glargine 30 units daily, pioglitazone 30 mg A1c: 8.3% (02/14) Blood glucose has been consistently elevated from 250-300. Patient is on a diabetic diet. She was previously receiving glargine 28 units daily. - Continue Glargine 30 units daily - Increase insulin lispro to 12 units breakfast and lunch, 16 dinner - Sliding scale ACHS Assessment & Plan (03/02/2025 4:30 PM EDT): Home regimen: Jardiance 10 mg, Glargine 30 units daily, pioglitazone 30 mg A1c: 8.3% (02/14) Blood glucose has been consistently elevated from 250-300. Patient is on a diabetic diet. She was previously receiving glargine 28 units daily. - Continue Glargine 30 units daily - Increase insulin lispro to 12 units breakfast and lunch, 16 dinner - Sliding scale ACHS Assessment & Plan (03/01/2025 12:46 PM EDT): Home regimen: Jardiance 10 mg, Glargine 30 units daily, pioglitazone 30 mg A1c: 8.3% (02/14) Blood glucose has been consistently elevated from 250-300. Patient is on a diabetic diet. She was previously receiving glargine 28 units daily. - Continue Glargine 32 units daily - Increase insulin lispro to 12 units 3 times daily with meals - Sliding scale ACHS Assessment & Plan (02/28/2025 1:04 PM EDT): Home regimen: Jardiance 10 mg, Glargine 30 units daily, pioglitazone 30 mg A1c: 8.3% (02/14) Blood glucose has been consistently elevated from 250-300. Patient is on a diabetic diet. She was previously receiving glargine 28 units daily. - Continue Glargine 32 units daily - Increase insulin lispro to 12 units 3 times daily with meals - Sliding scale ACHS Assessment & Plan (02/28/2025 12:57 PM EDT): Home regimen: Jardiance 10 mg, Glargine 30 units daily, pioglitazone 30 mg A1c: 8.3% (02/14) Blood glucose has been consistently elevated from 250-300. Elevated levels are mainly around dinner/nighttime. Patient is on a diabetic diet. She was previously receiving glargine 28 units daily. Plan: - Continue Glargine 32 units daily - Continue lispro 12 units with breakfast and lunch - Increase lispro to 16 units for dinner - Correctional scale ACHS Assessment & Plan (02/28/2025 12:33 PM EDT): Home regimen: Jardiance 10 mg, Glargine 30 units daily, pioglitazone 30 mg A1c: 8.3% (02/14) Blood glucose has been consistently elevated from 250-300. Patient is on a diabetic diet. She was previously receiving glargine 28 units daily. - Continue Glargine 32 units daily - Increase insulin lispro to 12 units 3 times daily with meals - Sliding scale ACHS Assessment & Plan (02/26/2025 11:33 AM EDT): Home regimen: Jardiance 10 mg, Glargine 30 units daily, pioglitazone 30 mg A1c: 8.3% (02/14) Blood glucose has been elevated from 250-300. Patient is on a diabetic diet. She was previously receiving glargine 28 units daily. - Continue Glargine 32 units daily - Increase insulin lispro to 12 units 3 times daily with meals - Sliding scale ACHS Assessment & Plan (02/25/2025 4:06 PM EDT): Home regimen: Jardiance 10 mg, Glargine 30 units daily, pioglitazone 30 mg A1c: 8.3% (02/14) Blood glucose has been elevated from 250-300. Patient is on a diabetic diet. She was previously receiving glargine 28 units daily. - Continue Glargine 32 units daily - Increase insulin lispro to 12 units 3 times daily with meals - Sliding scale ACHS Assessment & Plan (02/24/2025 12:26 PM EDT): Home regimen: Jardiance 10 mg, Glargine 30 units daily, pioglitazone 30 mg A1c: 8.3% (02/14) Blood glucose has been elevated from 250-300. Patient is on a diabetic diet. She was previously receiving glargine 28 units daily. - Continue Glargine 32 units daily - Increase insulin lispro to 12 units 3 times daily with meals - Sliding scale every 6 hours Assessment & Plan (02/25/2025 3:59 PM EDT): Home regimen: Jardiance 10 mg, Glargine 30 units daily, pioglitazone 30 mg A1c: 8.3% (02/14) Blood glucose has been elevated from 250-300. Patient is on a diabetic diet. She was previously receiving glargine 28 units daily. - Continue Glargine 32 units daily - Increase insulin lispro to 8 units 3 times daily with meals - Sliding scale every 6 hours Assessment & Plan (02/23/2025 1:38 PM EDT): Home regimen: Jardiance 10 mg, Glargine 15 units daily, pioglitazone 30 mg A1c: 8.3% (02/14) Blood glucose has been elevated from 250-300. Patient is on a diabetic diet. She was previously receiving glargine 28 units daily. - Continue Glargine 32 units daily - Increase insulin lispro to 8 units 3 times daily with meals - Sliding scale every 6 hours Assessment & Plan (02/22/2025 12:32 PM EDT): Home regimen: Jardiance 10 mg, Glargine 15 units daily, pioglitazone 30 mg A1c: 8.3% (02/14) Blood glucose has been elevated from 250-300. Patient is on a diabetic diet. She was previously receiving glargine 28 units daily. - Glargine increased to 32 units daily - Insulin lispro 6 units 3 times daily with meals - Sliding scale every 6 hours Assessment & Plan (02/22/2025 11:17 AM EDT): Home regimen: Jardiance 10 mg, Glargine 15 units daily, pioglitazone 30 mg A1c: 8.3% (02/14) Blood glucose has been elevated from 250-300. Patient is on a diabetic diet. She was previously receiving glargine 18 units daily. BG remaining around 250 despite increased glargine dose. - Glargine increased to 32 units daily - Insulin lispro 6 units 3 times daily with meals - Sliding scale every 6 hours Assessment & Plan (02/21/2025 2:23 PM EDT): Home regimen: Jardiance 10 mg, Glargine 15 units daily, pioglitazone 30 mg A1c: 8.3% (02/14) Blood glucose has been elevated from 250-300. Patient is on a diabetic diet. She was previously receiving glargine 18 units daily - Glargine increased to 28 units daily - Insulin lispro 3 units 3 times daily with meals - Sliding scale every 6 hours Assessment & Plan (02/21/2025 2:34 PM EDT): Home regimen: Jardiance 10 mg, Glargine 15 units daily, pioglitazone 30 mg A1c: 8.3% (02/14) Blood glucose has been elevated from 250-300. Patient is on a diabetic diet. She was previously receiving glargine 18 units daily - Glargine increased to 28 units daily - Insulin lispro 3 units 3 times daily with meals - Sliding scale every 6 hours Assessment & Plan (02/20/2025 12:02 PM EDT): Home regimen: Jardiance 10 mg, Glargine 15 units daily, pioglitazone 30 mg A1c: 8.3% (02/14) Blood glucose has been elevated from 250-300. Patient is on a diabetic diet. She was previously receiving glargine 18 units daily - Glargine increased to 24 units daily - Insulin lispro 3 units 3 times daily with meals - Sliding scale every 6 hours Assessment & Plan (02/19/2025 12:51 PM EDT): Home regimen: Jardiance 10 mg, Glargine 15 units daily, pioglitazone 30 mg A1c: 8.3% (02/14) Blood glucose has been elevated from 250-300. Patient is on a diabetic diet. She was previously receiving glargine 18 units daily - Glargine increased to 22 units daily - Insulin lispro 3 units 3 times daily with meals - Sliding scale every 6 hours Assessment & Plan (02/17/2025 4:32 PM EDT): At home uses glargine 15 U daily. 02/14 A1c at 8.3. Had a recorded POCT glucose of 468 back on 02/12. -ISS -Consider starting long-acting insulin if correctional scale is insufficient - Cleared by COMPUTER APPLICATION DEVELOPER for modified diet, currently n.p.o. prior to procedure Assessment & Plan (02/15/2025 3:25 PM EDT): At home uses glargine 15 U daily. 02/14 A1c at 8.3. Had a recorded POCT glucose of 468 back on 02/12. -ISS -Consider starting long-acting insulin if correctional scale is insufficient - Cleared by COMPUTER APPLICATION DEVELOPER for modified diet -N.p.o. after midnight starting 01/16 in anticipation of procedure Resolved Problems Problem Noted Date Diagnosed Date Resolved Date Hypernatremia 02/27/2025 03/01/2025 Assessment & Plan (03/01/2025 12:46 PM EDT): Patient noted to have Na 147 with FWD ~ 1.3 L - Continue D5 75 mL/hr for 12 hours - Encourage PO intake Assessment & Plan (02/28/2025 1:04 PM EDT): Patient noted to have Na 147 with FWD ~ 1.3 L - Continue D5 75 mL/hr for 12 hours - Encourage PO intake Assessment & Plan (02/28/2025 9:46 AM EDT): Patient noted to have Na 146 on 02/27 with FWD ~ 1.3 L Plan: - Continue D5 75 mL/hr for 12 hours - Encourage PO intake Assessment & Plan (02/28/2025 12:33 PM EDT): Patient noted to have Na 147 with FWD ~ 1.3 L - Continue D5 75 mL/hr for 12 hours - Encourage PO intake Constipation 02/26/2025 02/27/2025 Assessment & Plan (02/28/2025 12:33 PM EDT): Leukocytosis likely in the setting of colitis from not having had a bowel movement in a significant amount of time. Dulcolax suppository given and patient was charted to have bowel movement on 02/26 with resolution in nausea and vomiting. Assessment & Plan (02/26/2025 11:35 AM EDT): With associated N/V Patient has not had a BM in several days - Dulcolax suppository ordered - Consider KUB if she remains constipated Febrile 02/20/2025 02/22/2025 Assessment & Plan (02/22/2025 12:32 PM EDT): Noted to be febrile up to 101.4 overnight on 02/19 and 100.6 on 02/20. Has been afebrile since. UA with no leukocyte esterase and/or nitrite/bacteria. No respiratory symptoms though she is high risk for aspiration. Chest x-ray notable for low lung volumes with mild bibasilar reticular opacities suggestive of atelectasis or possible aspiration. Blood cultures show no growth at 2 days. - F/u blood cultures (02/20- - Monitor fever and WBC trends - Consider initiating CTX if patient remains febrile Assessment & Plan (02/22/2025 11:17 AM EDT): Noted to be febrile up to 101.4 overnight on 02/19 and again to 100.6 on 02/20. Afebrile since 02/20. Bladder scan revealed urinary retention. UA with no leukocyte esterase and/or nitrite/bacteria. No respiratory symptoms though she is high risk for aspiration. CXR inconclusive for aspiration - Monitor blood cultures - Monitor fever and WBC trends, holding off antibiotics at this time Assessment & Plan (02/21/2025 1:30 PM EDT): Noted to be febrile up to 101.4 overnight on 02/19 and again to 100.6 on 02/20. Bladder scan revealed urinary retention. UA with no leukocyte esterase and/or nitrite/bacteria. No respiratory symptoms though she is high risk for aspiration. CXR inconclusive for aspiration - Monitor blood cultures - Monitor fever and WBC trends, holding off antibiotics at this time Assessment & Plan (02/21/2025 2:34 PM EDT): Noted to be febrile up to 101.4 overnight on 02/19 and 100.6 on 02/20. Bladder scan revealed urinary retention. UA with no leukocyte esterase and/or nitrite/bacteria. No respiratory symptoms though she is high risk for aspiration. Chest x-ray notable for low lung volumes with mild bibasilar reticular opacities suggestive of atelectasis or possible aspiration. Blood cultures show no growth at 24 hours - F/u blood cultures (02/20- - Monitor fever and WBC trends - Consider initiating CTX if patient remains febrile Assessment & Plan (02/20/2025 12:02 PM EDT): Noted to be febrile up to 101.4 overnight on 02/20. Bladder scan revealed urinary retention. UA with no leukocyte esterase and/or nitrite/bacteria. No respiratory symptoms though she is high risk for aspiration. - Will obtain CXR to rule out aspiration - Obtain blood cultures - Monitor fever and WBC trends, holding off antibiotics at this time Postictal confusion 02/15/2025 03/01/20 Hypertension 04/15/2022 02/24/2025 Assessment & Plan (02/24/2025 12:26 PM EDT): Home regimen: Amlodipine 5 mg, furosemide 20 mg, metoprolol tartrate 50 mg twice daily, valsartan 160 mg - Continue metoprolol tartrate to 50 mg BID - Currently normotensive, reintroduce home medications as necessary Assessment & Plan (02/25/2025 3:59 PM EDT): Home regimen: Amlodipine 5 mg, furosemide 20 mg, metoprolol tartrate 50 mg twice daily, valsartan 160 mg - Continue metoprolol tartrate to 50 mg BID - Currently normotensive, reintroduce home medications as necessary Assessment & Plan (02/23/2025 1:38 PM EDT): Home regimen: Amlodipine 5 mg, furosemide 20 mg, metoprolol tartrate 50 mg twice daily, valsartan 160 mg - Continue metoprolol tartrate to 50 mg BID - Currently normotensive, reintroduce home medications as necessary Assessment & Plan (02/22/2025 12:32 PM EDT): Home regimen: Amlodipine 5 mg, furosemide 20 mg, metoprolol tartrate 50 mg twice daily, valsartan 160 mg - Increase metoprolol tartrate to 50 mg BID - Currently normotensive, reintroduce home medications as necessary Assessment & Plan (02/22/2025 11:17 AM EDT): Home regimen: Amlodipine 5 mg, furosemide 20 mg, metoprolol tartrate 50 mg twice daily, valsartan 160 mg - increase metoprolol to 50 mg BID from 25 Assessment & Plan (02/21/2025 2:23 PM EDT): Home regimen: Amlodipine 5 mg, furosemide 20 mg, metoprolol tartrate 50 mg twice daily, valsartan 160 mg - increase metoprolol to 25 mg BID from 12.5 Assessment & Plan (02/21/2025 2:34 PM EDT): Home regimen: Amlodipine 5 mg, furosemide 20 mg, metoprolol tartrate 50 mg twice daily, valsartan 160 mg - Increase metoprolol tartrate to 25 mg mg BID - Currently normotensive, reintroduce home medications as necessary Assessment & Plan (02/20/2025 12:02 PM EDT): Home regimen: Amlodipine 5 mg, furosemide 20 mg, metoprolol tartrate 50 mg twice daily, valsartan 160 mg - Continue metoprolol tartrate 12.5 mg BID - Currently normotensive, reintroduce home medications as necessary Assessment & Plan (02/19/2025 12:51 PM EDT): Home regimen: Amlodipine 5 mg, furosemide 20 mg, metoprolol tartrate 50 mg twice daily, valsartan 160 mg - Continue metoprolol tartrate 12.5 mg BID - Can begin to reintroduce home medications on 02/19 as BP tolerates Assessment & Plan (02/17/2025 4:32 PM EDT): See above Assessment & Plan (02/15/2025 3:25 PM EDT): See above Assessment & Plan (08/30/2024 3:20 PM EDT): Patient is blood pressure is reasonably well-controlled with a reading today 138/78. I have advised that she take the valsartan at night and the amlodipine in the morning and continue with metoprolol twice daily. Encounters Date Type Department Care Team Description 04/05/2025 Telephone Neurostroke - [facility] [address] [place] [address] Shiloh Lemus MA 04/05/2025 Telephone Neurostroke - [facility] [address] [place] [id number] Mary Ruffin MA 03/17/2025 Telephone [facility] [address] [place] [address] Renae Sanders RN 02/17/2025 Telephone [facility] - [address] [place] [address] Dilip Dykes MD 02/16/2025 3:04 PM EDT Anesthesia Event [facility] Interventional Radiology [address] [place] [address] Lv Rueda MD 02/15/2025 Telephone Neurosurgery - [facility] [address] [place] [address] Jasmin Werner MA 02/14/2025 10:47 AM EDT - 03/10/2025 1:40 PM EDT Hospital Encounter [facility] 10-7E [address] [place] [phone] Osei Guzman MD Sekhon, MD Donato Adhikari Edgar, MD Singh, Gagandeep, MD Singh, Gagan D, MD Kaur, Antarpreet, MD Nadler, Evan, MD Lee, Swan, MD Kazi, Ahmed, MD Kapoor, MD Dixie Cerebrovascular accident (CVA), unspecified mechanism (CMS/HCC V24, CMS/HCC V28) (Primary Dx); CVA (cerebral vascular accident) (CMS/HCC V24, CMS/HCC V28); Nonrheumatic aortic valve stenosis; Longstanding persistent atrial fibrillation (CMS/HCC V24, CMS/HCC V28) Discharge Disposition: Home or Self Care 02/14/2025 3:48 AM EDT - 02/14/2025 10:10 AM EDT Emergency [facility] [address] [place] [phone] Hannah Escoto MD Cerebrovascular accident (CVA) due to thrombosis of left anterior cerebral artery ([facility] V24, [facility] V28) (Primary Dx); Right arm weakness; Hemineglect; Encephalopathy acute; Cerebrovascular accident (CVA) due to stenosis of left middle cerebral artery ([facility] V24, [facility] V28); Language barrier to communication; Hypokalemia; Hypomagnesemia Discharge Disposition: Short Term Hospital 02/10/2025 9:55 AM EDT - 02/10/2025 5:47 PM EDT Emergency [facility] Emergency [address] [place] [phone] Yuli Castorena MD Delirium (Primary Dx); Hyperglycemia Discharge Disposition: Home or Self Care 02/08/2025 Plan of Care Documentation [facility] [address] [place] [phone] 02/07/2025 4:18 PM EDT - 02/14/2025 1:48 PM EDT Hospital Encounter [facility] [address] [place] [phone] Ana Trimble DO Discharge Disposition: [facility] Hospital 02/04/2025 12:39 PM EDT Anesthesia Event [facility] 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 [address] [place] [phone] Ciro Dias MD 02/01/2025 6:43 PM EDT - 02/07/2025 4:16 PM EDT Hospital Encounter [facility] [address] [place] [phone] Cortez Lincoln MD Seralathan, Manikandan, MD Bell, Alistair A, MD Alam, Aroosa, MD Seizure ([facility] V24, [facility] V28) (Primary Dx); Pneumonia due to infectious organism, unspecified laterality, unspecified part of lung; Aortic valve stenosis, etiology of cardiac valve disease unspecified Discharge Disposition: [facility] 01/31/2025 2:21 PM EDT - 02/01/2025 6:22 PM EDT Hospital Encounter [facility] [address] [place] [phone] Ana Trimble DO Discharge Disposition: Short Term Hospital from Last 3 Months Surgical History Surgery Date Site/Laterality Comments AORTIC VALVE REPLACEMENT Medical History Medical History Date Comments HTN (hypertension) DM (diabetes mellitus) ([facility] V24, [facility] V28 ) HLD (hyperlipidemia) H/O aortic valve replacement CVA (cerebral vascular accident) ([facility] V24, [facility] V28) Social History Tobacco Use Types Packs/Day Years Used Date Smoking Tobacco: Never Smokeless Tobacco: Never Alcohol Use Standard Drinks/Week Comments No 0 (1 standard drink = 0.6 oz pur e alcohol) Health Literacy Answer Date Recorded How often do you need to hav e someone help you when you read instructions, pamphlets, or other written material from your doctor or pharmacy? Rarely 02/09/2025 Caregiver: How often do you need to have someone help you when you read instructions, pamphlets, or other written material from your doctor or pharmacy? Not on file 02/09/2025 Transportation Answer Date Recorded Has the lack of transportati on kept you from meetings, work, or from getting things needed for daily living? No Has the lack of transportati on kept you from medical appointments or from getting medications? No 02/08/2025 Social Isolation Answer Date Recorded How often do you feel lonely or isolated from th ose around you? Never 02/08/2025 Food Risk Answer Date Recorded Within the past 12 months we worried whether our food would run out before we got money to buy more. Not asked 02/22/2025 Within the past 12 months th e food we bought just didn't last and we didn't have money to get more. Not asked 02/22/2025 Interpersonal Safety Answer Date Record ed Physical Abuse Unrecognized value 02/07/2025 Verbal Abuse Unrecognized value 02/07/2025 Comments No Sex and Gender Information Value Date Recorded Sex Assigned at Female 01/25/2025 2:21 PM EDT Legal Sex Female 1:03 AM EST Gender Identity Female 01/25/2025 2:21 PM EDT Sexual Orientation Straight 01/25/2025 2: 21 PM EDT Obstetrics History Last Filed Vital Signs Vital Sign Reading Time Taken Comments Blood Pressure 149/80 03/10/2025 9:05 AM EDT Pulse 126 03/10/2025 9:05 AM EDT Temperature 36.6 C (97.9 F) 03/10/2025 9:05 AM EDT Respiratory Rate 18 03/10/2025 9:05 AM EDT Oxygen Saturation 98% 03/10/2025 9:05 AM EDT Inhaled Oxygen Concentration - - Weight 65.6 kg (144 lb 10 oz) 03/05/2025 5:00 AM EDT Height 154.7 cm (5' 0.91 ) 02/19/2025 2:03 AM ED T Body Mass Index 27.41 02/19/2025 2:03 AM EDT Plan of Treatment Upcoming Encounters Date Type Department Care Team (Late st Contact Info) Description 06/14/2025 9:40 AM EST Office Visit Neurology - [address] [place] [phone] Jaylan Vargas MD [address] [facility] [address] [place], [place] [id number] Health Maintenance Due Date Last Done Comments Diabetes: Annual Foot Exam 11/14/1955 Diabetes: Annual Retina Eye Exam 11/14/1955 DTaP,Tdap,and Td Vaccines (2 - Td or Tdap) 06/25/2016 06/25/2006 RSV Immunization Adult Patients (1 - 1-dose 75+ series) 2020 Hepatitis C Screening 04/28/2022 Medicare Annual Wellness Visit 04/28/2022 Osteoporosis Screening (Bone Density Screening) 04/28/2022 Diabetes: Annual Urine Albumin-Creatinine Ratio (uACR) 07/02/2024 COVID-19 Vaccine ( season) 2025 04/03/2024, 04/07/2023, 04/04/2022, Additional history exists Influenza Vaccine (#1) 2025 , 03/16/2023, 03/22/2022, Additional history exists Diabetes: Blood Sugar Control Test (HGBA1C) 08/14/2025 02/14/2025 Social Influencers of Health Screening 02/22/2026 02/22/2025 Diabetes: Annual GFR (Glomerular Filtration Rate) 03/04/2026 03/04/2025, 03/02/2025, 03/01/2025, Additional history exists Hypertension/CHF/CAD Annual BMP Blood Test 03/04/2026 03/04/2025, 03/02/2025, 03/01/2025, Additional history exists Falls Risk Assessment 03/10/2026 03/10/2025 Cholesterol Screening (Lipid Panel) 02/14/2030 02/14/2025 Zoster Vaccines Completed 04/01/2020, 01/22/2020 Pneumococcal Vaccine: 50+ Years Completed 04/07/2023, 10/10/2017, 04/06/2007 Depression Screening Completed 02/08/2025 HIB Vaccines Aged Out No longer eligi [...] on patient's age to complete this topic Medical Devices Implanted Type Area Strong Nitric Operator Device Identifier Shelf Expiration Date Model / Serial / Lot Device Clsur Angioseal 6f Vip 5/Pk 10/Bx/Ca - [id number] - [id number] Implanted:Qty : 1 on 02/16/2025 by Zack Schneider MD at [facility] Vascular Closure Devices N/A: Groin TERUMO - INTERVENTIONAL SYSTEM 09/08/2025 [id number] / [id number] / Procedures Procedure Name Priority Date/Time Associated Diagnosis Comments POCT GLUCOSE BLOOD Routine 03/10/2025 12 :24 PM EDT POCT GLUCOSE BLOOD Routine 03/10/2025 8: 40 AM EDT COMPLETE BLOOD COUNT Routine 03/10/2025 8:12 AM EDT PROTHROMBIN TIME WITH INR Routine 03/10/2025 8:12 AM EDT POCT GLUCOSE BLOOD Routine 03/10/2025 7: 37 AM EDT POCT GLUCOSE BLOOD Routine 03/10/2025 12 :12 AM EDT POCT GLUCOSE BLOOD Routine 03/09/2025 4: 08 PM EDT POCT GLUCOSE BLOOD Routine 03/09/2025 12 :32 PM EDT POCT GLUCOSE BLOOD Routine 03/09/2025 8: 39 AM EDT COMPLETE BLOOD COUNT Routine 03/09/2025 7:20 AM EDT PROTHROMBIN TIME WITH INR Routine 03/09/2025 7:20 AM EDT POCT GLUCOSE BLOOD Routine 03/09/2025 5: 51 AM EDT POCT GLUCOSE BLOOD Routine 03/09/2025 12 :07 AM EDT OXYGEN THERAPY, ADULT Routine 03/08/2025 8:00 PM EDT POCT GLUCOSE BLOOD Routine 03/08/2025 5: 01 PM EDT POCT GLUCOSE BLOOD Routine 03/08/2025 12 :58 PM EDT POCT GLUCOSE BLOOD Routine 03/08/2025 8: 38 AM EDT COMPLETE BLOOD COUNT Routine 03/08/2025 8:07 AM EDT PROTHROMBIN TIME WITH INR Routine 03/08/2025 8:07 AM EDT POCT GLUCOSE BLOOD Routine 03/08/2025 5: 36 AM EDT POCT GLUCOSE BLOOD Routine 03/08/2025 12 :41 AM EDT POCT GLUCOSE BLOOD Routine 03/07/2025 10 :02 PM EDT OXYGEN THERAPY, ADULT Routine 03/07/2025 8:00 PM EDT POCT GLUCOSE BLOOD Routine 03/07/2025 4: 20 PM EDT POCT GLUCOSE BLOOD Routine 03/07/2025 3: 57 PM EDT POCT GLUCOSE BLOOD Routine 03/07/2025 12 :06 PM EDT COMPLETE BLOOD COUNT Routine 03/07/2025 8:48 AM EDT PROTHROMBIN TIME WITH INR Routine 03/07/2025 8:48 AM EDT POCT GLUCOSE BLOOD Routine 03/07/2025 8: 26 AM EDT OXYGEN THERAPY, ADULT Routine 03/07/2025 8:00 AM EDT POCT GLUCOSE BLOOD Routine 03/06/2025 9: 23 PM EDT OXYGEN THERAPY, ADULT Routine 03/06/2025 8:00 PM EDT POCT GLUCOSE BLOOD Routine 03/06/2025 5: 02 PM EDT POCT GLUCOSE BLOOD Routine 03/06/2025 11 :33 AM EDT COMPLETE BLOOD COUNT Routine 03/06/2025 10:03 AM EDT PROTHROMBIN TIME WITH INR Routine 03/06/2025 10:03 AM EDT POCT GLUCOSE BLOOD Routine 03/06/2025 9: 21 AM EDT OXYGEN THERAPY, ADULT Routine 03/06/2025 8:00 AM EDT POCT GLUCOSE BLOOD Routine 03/05/2025 9: 04 PM EDT POCT GLUCOSE BLOOD Routine 03/05/2025 4: 59 PM EDT POCT GLUCOSE BLOOD Routine 03/05/2025 12 :27 PM EDT POCT GLUCOSE BLOOD Routine 03/05/2025 8: 40 AM EDT COMPLETE BLOOD COUNT Routine 03/05/2025 7:22 AM EDT PROTHROMBIN TIME WITH INR Routine 03/05/2025 7:22 AM EDT POCT GLUCOSE BLOOD Routine 03/04/2025 9: 36 PM EDT OXYGEN THERAPY, ADULT Routine 03/04/2025 8:00 PM EDT POCT GLUCOSE BLOOD Routine 03/04/2025 4: 31 PM EDT POCT GLUCOSE BLOOD Routine 03/04/2025 12 :18 PM EDT POCT GLUCOSE BLOOD Routine 03/04/2025 8: 35 AM EDT OXYGEN THERAPY, ADULT Routine 03/04/2025 8:[address] HEAD WO CONTRAST STAT 03/04/2025 2 :26 AM EDT PROTHROMBIN TIME WITH INR Routine 03/04/2025 2:09 AM EDT BASIC METABOLIC PANEL STAT 03/04/2025 2:09 AM EDT VENOUS BLOOD GAS STAT 03/04/2025 2:09 AM EDT POCT GLUCOSE BLOOD Routine 03/03/2025 9: 39 PM EDT OXYGEN THERAPY, ADULT Routine 03/03/2025 8:00 PM EDT POCT GLUCOSE BLOOD Routine 03/03/2025 5: 26 PM EDT POCT GLUCOSE BLOOD Routine 03/03/2025 1: 16 PM EDT POCT GLUCOSE BLOOD Routine 03/03/2025 8: 37 AM EDT OXYGEN THERAPY, ADULT Routine 03/03/2025 8:00 AM EDT COMPLETE BLOOD COUNT Routine 03/03/2025 7:40 AM EDT PROTHROMBIN TIME WITH INR Routine 03/03/2025 7:40 AM EDT POCT GLUCOSE BLOOD Routine 03/02/2025 11 :36 PM EDT OXYGEN THERAPY, ADULT Routine 03/02/2025 8:00 PM EDT POCT GLUCOSE BLOOD Routine 03/02/2025 6: 05 PM EDT HEPARIN AND LOW MOLECULAR WEIGHT ANTI XA LEVEL Timed 03/02/2025 12:49 PM EDT OXYGEN THERAPY, ADULT Routine 03/02/2025 8:00 AM EDT POCT GLUCOSE BLOOD Routine 03/02/2025 5: 12 AM EDT COMPLETE BLOOD COUNT Routine 03/02/2025 4:48 AM EDT BASIC METABOLIC PANEL Routine 03/02/2025 4:48 AM EDT PROTHROMBIN TIME WITH INR Routine 03/02/2025 4:48 AM EDT HEPARIN AND LOW MOLECULAR WEIGHT ANTI XA LEVEL Timed 03/02/2025 4:48 AM EDT FERRITIN Add-On 03/01/2025 9:36 PM EDT IRON AND TIBC Add-On 03/01/2025 9:36 PM EDT TROPONIN I HIGH SENSITIVITY STAT 03/01/2025 9:36 PM EDT ACTIVATED PARTIAL THROMBOPLASTIN TIME STAT 03/01/2025 9:36 PM EDT PROTHROMBIN TIME WITH INR STAT 03/01/2025 9:36 PM EDT BASIC METABOLIC PANEL STAT 03/01/2025 9:36 PM EDT CBC WITH AUTO DIFFERENTIAL STAT 03/01/2025 9:36 PM EDT CBC AND DIFFERENTIAL STAT 03/01/2025 9:36 PM EDT HEPARIN AND LOW MOLECULAR WEIGHT ANTI XA LEVEL Timed 03/01/2025 9:[address] ANGIO HEAD/NECK STROKE WO AND/OR W CONTRAST STAT 03/01/2025 9:[address] HEAD STROKE WO CONTRAST STAT 03/01/2025 9:19 PM EDT POCT GLUCOSE BLOOD Routine 03/01/2025 8: 35 PM EDT OXYGEN THERAPY, ADULT Routine 03/01/2025 8:00 PM EDT PROTHROMBIN TIME WITH INR Timed 03/01/2025 7:44 PM EDT POCT GLUCOSE BLOOD Routine 03/01/2025 4: 59 PM EDT HEPARIN AND LOW MOLECULAR WEIGHT ANTI XA LEVEL Timed 03/01/2025 2:58 PM EDT POCT GLUCOSE BLOOD Routine 03/01/2025 12 :58 PM EDT POCT GLUCOSE BLOOD Routine 03/01/2025 12 :04 PM EDT POCT GLUCOSE BLOOD Routine 03/01/2025 8: 17 AM EDT OXYGEN THERAPY, ADULT Routine 03/01/2025 8:00 AM EDT BASIC METABOLIC PANEL Routine 03/01/2025 6:59 AM EDT HEPARIN AND LOW MOLECULAR WEIGHT ANTI XA LEVEL Timed 03/01/2025 6:59 AM EDT PROTHROMBIN TIME WITH INR Routine 03/01/2025 6:59 AM EDT POCT GLUCOSE BLOOD Routine 02/28/2025 9: 29 PM EDT POCT GLUCOSE BLOOD Routine 02/28/2025 5: 04 PM EDT POCT GLUCOSE BLOOD Routine 02/28/2025 12 :07 PM EDT POCT GLUCOSE BLOOD Routine 02/28/2025 8: 30 AM EDT OXYGEN THERAPY, ADULT Routine 02/28/2025 8:00 AM EDT MAGNESIUM Routine 02/28/2025 6:49 AM EDT HEPARIN AND LOW MOLECULAR WEIGHT ANTI XA LEVEL Timed 02/28/2025 6:49 AM EDT PROTHROMBIN TIME WITH INR Routine 02/28/2025 6:49 AM EDT COMPREHENSIVE METABOLIC PANEL Routine 02/28/2025 6:49 AM EDT COMPLETE BLOOD COUNT Routine 02/28/2025 6:49 AM EDT OXYGEN THERAPY, ADULT Routine 02/27/2025 8:00 PM EDT POCT GLUCOSE BLOOD Routine 02/27/2025 7: 58 PM EDT POCT GLUCOSE BLOOD Routine 02/27/2025 4: 51 PM EDT POCT GLUCOSE BLOOD Routine 02/27/2025 11 :58 AM EDT POCT GLUCOSE BLOOD Routine 02/27/2025 8: 28 AM EDT OXYGEN THERAPY, ADULT Routine 02/27/2025 8:00 AM EDT HEPARIN AND LOW MOLECULAR WEIGHT ANTI XA LEVEL Timed 02/27/2025 6:18 AM EDT PROTHROMBIN TIME WITH INR Routine 02/27/2025 6:18 AM EDT COMPREHENSIVE METABOLIC PANEL Routine 02/27/2025 6:18 AM EDT COMPLETE BLOOD COUNT Routine 02/27/2025 6:18 AM EDT POCT GLUCOSE BLOOD Routine 02/26/2025 8: 50 PM EDT OXYGEN THERAPY, ADULT Routine 02/26/2025 8:00 PM EDT POCT GLUCOSE BLOOD Routine 02/26/2025 5: [address] HEAD WO CONTRAST Routine 02/26/2025 3 :57 PM EDT POCT GLUCOSE BLOOD Routine 02/26/2025 12 :18 PM EDT ECG 12-LEAD Routine 02/26/2025 12:03 PM EDT POCT GLUCOSE BLOOD Routine 02/26/2025 8: 12 AM EDT OXYGEN THERAPY, ADULT Routine 02/26/2025 8:00 AM EDT PROTHROMBIN TIME WITH INR Routine 02/26/2025 7:48 AM EDT COMPREHENSIVE METABOLIC PANEL Routine 02/26/2025 7:48 AM EDT COMPLETE BLOOD COUNT Routine 02/26/2025 7:48 AM EDT HEPARIN AND LOW MOLECULAR WEIGHT ANTI XA LEVEL Timed 02/26/2025 3:51 AM EDT HEPARIN AND LOW MOLECULAR WEIGHT ANTI XA LEVEL Timed 02/25/2025 9:44 PM EDT POCT GLUCOSE BLOOD Routine 02/25/2025 9: 35 PM EDT OXYGEN THERAPY, ADULT Routine 02/25/2025 8:00 PM EDT POCT GLUCOSE BLOOD Routine 02/25/2025 5: 00 PM EDT HEPARIN AND LOW MOLECULAR WEIGHT ANTI XA LEVEL STAT 02/25/2025 3:28 PM EDT ACTIVATED PARTIAL THROMBOPLASTIN TIME STAT 02/25/2025 3:28 PM EDT POCT GLUCOSE BLOOD Routine 02/25/2025 12 :02 PM EDT POCT GLUCOSE BLOOD Routine 02/25/2025 8: 11 AM EDT OXYGEN THERAPY, ADULT Routine 02/25/2025 8:00 AM EDT MAGNESIUM Routine 02/25/2025 7:20 AM EDT PROTHROMBIN TIME WITH INR Routine 02/25/2025 7:20 AM EDT COMPREHENSIVE METABOLIC PANEL Routine 02/25/2025 7:20 AM EDT COMPLETE BLOOD COUNT Routine 02/25/2025 7:20 AM EDT POCT GLUCOSE BLOOD Routine 02/24/2025 9: 25 PM EDT POCT GLUCOSE BLOOD Routine 02/24/2025 4: 53 PM EDT POCT GLUCOSE BLOOD Routine 02/24/2025 12 :11 PM EDT POCT GLUCOSE BLOOD Routine 02/24/2025 8: 03 AM EDT OXYGEN THERAPY, ADULT Routine 02/24/2025 8:00 AM EDT MAGNESIUM Routine 02/24/2025 7:06 AM EDT PROTHROMBIN TIME WITH INR Routine 02/24/2025 7:06 AM EDT COMPREHENSIVE METABOLIC PANEL Routine 02/24/2025 7:06 AM EDT COMPLETE BLOOD COUNT Routine 02/24/2025 7:06 AM EDT POCT GLUCOSE BLOOD Routine 02/24/2025 1: 07 AM EDT POCT GLUCOSE BLOOD Routine 02/23/2025 9: 14 PM EDT POCT GLUCOSE BLOOD Routine 02/23/2025 4: 53 PM EDT POCT GLUCOSE BLOOD Routine 02/23/2025 12 :46 PM EDT POCT GLUCOSE BLOOD Routine 02/23/2025 8: 57 AM EDT OXYGEN THERAPY, ADULT Routine 02/23/2025 8:00 AM EDT PROTHROMBIN TIME WITH INR Routine 02/23/2025 7:39 AM EDT COMPREHENSIVE METABOLIC PANEL Routine 02/23/2025 7:39 AM EDT COMPLETE BLOOD COUNT Routine 02/23/2025 7:39 AM EDT POCT GLUCOSE BLOOD Routine 02/22/2025 8: 52 PM EDT OXYGEN THERAPY, ADULT Routine 02/22/2025 8:00 PM EDT POCT GLUCOSE BLOOD Routine 02/22/2025 5: 21 PM EDT POCT GLUCOSE BLOOD Routine 02/22/2025 1: 06 PM EDT POCT GLUCOSE BLOOD Routine 02/22/2025 8: 41 AM EDT MAGNESIUM Routine 02/22/2025 8:40 AM EDT PROTHROMBIN TIME WITH INR Routine 02/22/2025 8:40 AM EDT COMPREHENSIVE METABOLIC PANEL Routine 02/22/2025 8:40 AM EDT COMPLETE BLOOD COUNT Routine 02/22/2025 8:40 AM EDT OXYGEN THERAPY, ADULT Routine 02/22/2025 8:00 AM EDT POCT GLUCOSE BLOOD Routine 02/21/2025 9: 08 PM EDT OXYGEN THERAPY, ADULT Routine 02/21/2025 8:00 PM EDT POCT GLUCOSE BLOOD Routine 02/21/2025 5: 17 PM EDT POCT GLUCOSE BLOOD Routine 02/21/2025 12 :10 PM EDT ECG 12-LEAD STAT 02/21/2025 11:22 AM EDT PROTHROMBIN TIME WITH INR Routine 02/21/2025 9:00 AM EDT COMPREHENSIVE METABOLIC PANEL Routine 02/21/2025 9:00 AM EDT COMPLETE BLOOD COUNT Routine 02/21/2025 9:00 AM EDT POCT GLUCOSE BLOOD Routine 02/21/2025 8: 13 AM EDT OXYGEN THERAPY, ADULT Routine 02/21/2025 8:00 AM EDT POCT GLUCOSE BLOOD Routine 02/20/2025 9: 18 PM EDT OXYGEN THERAPY, ADULT Routine 02/20/2025 8:00 PM EDT POCT GLUCOSE BLOOD Routine 02/20/2025 5: 13 PM EDT POCT GLUCOSE BLOOD Routine 02/20/2025 12 :02 PM EDT XR CHEST 1 VIEW Routine 02/20/2025 10:28 AM EDT CULTURE BLOOD STAT 02/20/2025 10:28 AM EDT CULTURE BLOOD STAT 02/20/2025 10:26 AM EDT POCT GLUCOSE BLOOD Routine 02/20/2025 8: 46 AM EDT POCT GLUCOSE BLOOD Routine 02/20/2025 8: 35 AM EDT OXYGEN THERAPY, ADULT Routine 02/20/2025 8:00 AM EDT MAGNESIUM Routine 02/20/2025 6:59 AM EDT PROTHROMBIN TIME WITH INR Routine 02/20/2025 6:59 AM EDT COMPREHENSIVE METABOLIC PANEL Routine 02/20/2025 6:59 AM EDT COMPLETE BLOOD COUNT Routine 02/20/2025 6:59 AM EDT SAN URINE CULTURE TUBE Routine 02/20/2025 4:17 AM EDT URINALYSIS WITH REFLEX MICROSCOPIC AND CULTURE Routine 02/20/2025 4:17 AM EDT URINALYSIS WITH REFLEX MICROSCOPIC AND CULTURE Routine 02/20/2025 4:17 AM EDT POCT GLUCOSE BLOOD Routine 02/19/2025 9: 13 PM EDT OXYGEN THERAPY, ADULT Routine 02/19/2025 8:00 PM EDT POCT GLUCOSE BLOOD Routine 02/19/2025 4: 54 PM EDT ECG 12-LEAD Routine 02/19/2025 2:22 PM EDT POCT GLUCOSE BLOOD Routine 02/19/2025 11 :52 AM EDT POCT GLUCOSE BLOOD Routine 02/19/2025 8: 48 AM EDT PHOSPHORUS Routine 02/19/2025 8:25 AM EDT MAGNESIUM Routine 02/19/2025 8:25 AM EDT PROTHROMBIN TIME WITH INR Routine 02/19/2025 8:25 AM EDT COMPREHENSIVE METABOLIC PANEL Routine 02/19/2025 8:25 AM EDT COMPLETE BLOOD COUNT Routine 02/19/2025 8:25 AM EDT OXYGEN THERAPY, ADULT Routine 02/19/2025 8:00 AM EDT POCT GLUCOSE BLOOD Routine 02/18/2025 11 :14 PM EDT POCT GLUCOSE BLOOD Routine 02/18/2025 8: 13 PM EDT OXYGEN THERAPY, ADULT Routine 02/18/2025 8:00 PM EDT POCT GLUCOSE BLOOD Routine 02/18/2025 5: 34 PM EDT POCT GLUCOSE BLOOD Routine 02/18/2025 12 :36 PM EDT POCT GLUCOSE BLOOD Routine 02/18/2025 9: 19 AM EDT PHOSPHORUS Routine 02/18/2025 8:38 AM EDT MAGNESIUM Routine 02/18/2025 8:38 AM EDT PROTHROMBIN TIME WITH INR Routine 02/18/2025 8:38 AM EDT COMPREHENSIVE METABOLIC PANEL Routine 02/18/2025 8:38 AM EDT COMPLETE BLOOD COUNT Routine 02/18/2025 8:38 AM EDT OXYGEN THERAPY, ADULT Routine 02/18/2025 8:01 AM EDT POCT GLUCOSE BLOOD Routine 02/17/2025 9: 36 PM EDT OXYGEN THERAPY, ADULT Routine 02/17/2025 8:00 PM EDT POCT GLUCOSE BLOOD Routine 02/17/2025 4: 50 PM EDT COMPLETE BLOOD COUNT Routine 02/17/2025 3:[address] ANGIO HEAD/NECK WO AND/OR W CONTRAST Routine 02/17/2025 3:[address] HEAD WO CONTRAST Routine 02/17/2025 3 :25 PM EDT POCT GLUCOSE BLOOD Routine 02/17/2025 11 :07 AM EDT POCT GLUCOSE BLOOD Routine 02/17/2025 8: 07 AM EDT OXYGEN THERAPY, ADULT Routine 02/17/2025 8:01 AM EDT PROTHROMBIN TIME WITH INR Routine 02/17/2025 7:05 AM EDT COMPREHENSIVE METABOLIC PANEL Routine 02/17/2025 7:05 AM EDT POCT GLUCOSE BLOOD Routine 02/16/2025 8: 25 PM EDT OXYGEN THERAPY, ADULT Routine 02/16/2025 8:00 PM EDT POCT GLUCOSE BLOOD Routine 02/16/2025 5: 58 PM EDT IR INTRACRANIAL ANGIOPLASTY PERC Routine 02/16/2025 5:33 PM EDT TH AN ENDOTRACHEAL(NO CHARGE) Routine 02/16/2025 3:29 PM EDT POCT GLUCOSE BLOOD Routine 02/16/2025 3: 11 PM EDT CONTINUOUS EEG STAT 02/16/2025 1:12 PM EDT POCT GLUCOSE BLOOD Routine 02/16/2025 12 :07 PM EDT CONTINUOUS EEG STAT 02/16/2025 9:53 AM EDT CONTINUOUS EEG STAT 02/16/2025 9:09 AM EDT PROTHROMBIN TIME WITH INR Routine 02/16/2025 8:54 AM EDT COMPREHENSIVE METABOLIC PANEL Routine 02/16/2025 8:54 AM EDT COMPLETE BLOOD COUNT Routine 02/16/2025 8:54 AM EDT POCT GLUCOSE BLOOD Routine 02/16/2025 8: 17 AM EDT OXYGEN THERAPY, ADULT Routine 02/16/2025 8:02 AM EDT POCT GLUCOSE BLOOD Routine 02/15/2025 9: 52 PM EDT POCT GLUCOSE BLOOD Routine 02/15/2025 9: 19 PM EDT OXYGEN THERAPY, ADULT Routine 02/15/2025 8:00 PM EDT POCT GLUCOSE BLOOD Routine 02/15/2025 5: 34 PM EDT ECG 12-LEAD Routine 02/15/2025 3:27 PM EDT POCT GLUCOSE BLOOD Routine 02/15/2025 12 :27 PM EDT POCT GLUCOSE BLOOD Routine 02/15/2025 8: 28 AM EDT OXYGEN THERAPY, ADULT Routine 02/15/2025 8:02 AM EDT COMPLETE BLOOD COUNT Routine 02/15/2025 7:31 AM EDT PROTHROMBIN TIME WITH INR Routine 02/15/2025 7:31 AM EDT BASIC METABOLIC PANEL Routine 02/15/2025 7:31 AM EDT MAGNESIUM Routine 02/15/2025 7:31 AM EDT PHOSPHORUS Routine 02/15/2025 7:31 AM EDT POCT GLUCOSE BLOOD Routine 02/15/2025 5: 54 AM EDT POCT GLUCOSE BLOOD Routine 02/14/2025 10 :52 PM EDT OXYGEN THERAPY, ADULT Routine 02/14/2025 10:02 PM EDT OXYGEN THERAPY, ADULT Routine 02/14/2025 10:02 PM EDT POCT GLUCOSE BLOOD Routine 02/14/2025 8: 51 PM EDT MR BRAIN WO CONTRAST Routine 02/14/2025 7:16 PM EDT POCT GLUCOSE BLOOD Routine 02/14/2025 5: 35 PM EDT PROTHROMBIN TIME WITH INR Routine 02/14/2025 3:42 PM EDT LIPID PANEL WITH REFLEX TO DIRECT LDL Add-On 02/14/2025 12:14 PM EDT MAGNESIUM Add-On 02/14/2025 12:14 PM EDT HEMOGLOBIN A1C Add-On 02/14/2025 12:14 PM EDT FERRITIN Routine 02/14/2025 12:14 PM EDT IRON AND TIBC Routine 02/14/2025 12:14 PM EDT VITAMIN B12 AND FOLATE Routine 12:14 PM EDT CBC WITH AUTO DIFFERENTIAL STAT 02/14/2025 12:14 PM EDT ACTIVATED PARTIAL THROMBOPLASTIN TIME STAT 02/14/2025 12:14 PM EDT PROTHROMBIN TIME WITH INR STAT 02/14/2025 12:14 PM EDT CBC AND DIFFERENTIAL STAT 02/14/2025 12:14 PM EDT COMPREHENSIVE METABOLIC PANEL STAT 02/14/2025 12:14 PM EDT POCT GLUCOSE BLOOD Routine 02/14/2025 11 :[address] ANGIO HEAD/NECK STROKE WO AND/OR W CONTRAST STAT 02/14/2025 11:[address] CEREBRAL PERFUSION W CONTRAST STAT 02/14/2025 11:[address] HEAD STROKE WO CONTRAST STAT 02/14/2025 11:08 AM EDT ECG 12-LEAD STAT 02/14/2025 10:53 AM EDT [facility] 30-74 MINUTES Routine 02/14/2025 10:34 AM EDT POCT GLUCOSE BLOOD Routine 02/14/2025 5: [address] ANGIO HEAD/NECK WO AND/OR W CONTRAST STAT 02/14/2025 5:58 AM EDT POCT GLUCOSE BLOOD Routine 02/14/2025 4: 16 AM EDT SAN URINE CULTURE TUBE STAT 02/14/2025 4:12 AM EDT URINALYSIS WITH REFLEX MICROSCOPIC AND CULTURE STAT 02/14/2025 4:12 AM EDT URINALYSIS WITH REFLEX MICROSCOPIC AND CULTURE STAT 02/14/2025 4:12 AM EDT ECG 12-LEAD STAT 02/14/2025 4:06 AM EDT ECG 12-LEAD Routine 02/14/2025 4:04 AM EDT CBC WITH AUTO DIFFERENTIAL STAT 02/14/2025 3:59 AM EDT PROTHROMBIN TIME WITH INR STAT 02/14/2025 3:59 AM EDT ACTIVATED PARTIAL THROMBOPLASTIN TIME STAT 02/14/2025 3:59 AM EDT PROCALCITONIN STAT 02/14/2025 3:59 AM EDT COMPREHENSIVE METABOLIC PANEL STAT 02/14/2025 3:59 AM EDT CBC AND DIFFERENTIAL STAT 02/14/2025 3:59 AM EDT MAGNESIUM STAT 02/14/2025 3:59 AM EDT [facility] 30-74 MINUTES Routine 02/14/2025 3:48 AM EDT POCT GLUCOSE BLOOD Routine 02/13/2025 8: 44 PM EDT POCT GLUCOSE BLOOD Routine 02/13/2025 4: 02 PM EDT LEVETIRACETAM LEVEL Timed 02/13/2025 3 :[address] HEAD WO CONTRAST STAT 02/13/2025 1 :51 PM EDT POCT GLUCOSE BLOOD Routine 02/13/2025 11 :24 AM EDT LAVENDER - EDTA Routine 02/13/2025 8:55 AM EDT EXTRA TUBES Routine 02/13/2025 8:55 AM EDT LAVENDER - EDTA Routine 02/13/2025 8:50 AM EDT EXTRA TUBES Routine 02/13/2025 8:50 AM EDT AMMONIA Routine 02/13/2025 8:50 AM EDT COMPREHENSIVE METABOLIC PANEL Routine 02/13/2025 8:50 AM EDT POCT GLUCOSE BLOOD Routine 02/13/2025 7: 41 AM EDT PROTHROMBIN TIME WITH INR Routine 02/13/2025 5:18 AM EDT POCT GLUCOSE BLOOD Routine 02/12/2025 10 :35 PM EDT POCT GLUCOSE BLOOD Routine 02/12/2025 8: 40 PM EDT POCT GLUCOSE BLOOD Routine 02/12/2025 8: 36 PM EDT POCT GLUCOSE BLOOD Routine 02/12/2025 3 :56 PM EDT SAN URINE CULTURE TUBE Routine 02/12/2025 2:36 PM EDT URINALYSIS WITH REFLEX MICROSCOPIC AND CULTURE Routine 02/12/2025 2:36 PM EDT URINALYSIS WITH REFLEX MICROSCOPIC AND CULTURE Routine 02/12/2025 2:36 PM EDT POCT GLUCOSE BLOOD Routine 02/12/2025 10 :52 AM EDT RESPIRATORY VIRUS PANEL MOLECULAR STUDY Routine 02/12/2025 10:39 AM EDT POCT GLUCOSE BLOOD Routine 02/12/2025 8: 01 AM EDT PROTHROMBIN TIME WITH INR Routine 02/12/2025 6:02 AM EDT C-REACTIVE PROTEIN Routine 02/12/2025 6: 01 AM EDT MAGNESIUM Routine 02/12/2025 6:01 AM EDT COMPLETE BLOOD COUNT Routine 02/12/2025 6:01 AM EDT LAVENDER - EDTA Routine 02/12/2025 6:01 AM EDT SST - GOLD Routine 02/12/2025 6:01 AM EDT EXTRA TUBES Routine 02/12/2025 6:01 AM EDT POCT GLUCOSE BLOOD Routine 02/11/2025 7: 59 PM EDT POCT GLUCOSE BLOOD Routine 02/11/2025 3: 51 PM EDT POCT GLUCOSE BLOOD Routine 02/11/2025 11 :05 AM EDT POCT GLUCOSE BLOOD Routine 02/11/2025 7: 36 AM EDT LAVENDER - EDTA Routine 02/11/2025 5:24 AM EDT SST - GOLD Routine 02/11/2025 5:24 AM EDT EXTRA TUBES Routine 02/11/2025 5:24 AM EDT PROTHROMBIN TIME WITH INR Routine 02/11/2025 5:24 AM EDT ECG ANNOTATED 02/11/2025 POCT GLUCOSE BLOOD Routine 02/10/2025 8: 56 PM EDT POCT GLUCOSE BLOOD Routine 02/10/2025 6: 09 PM EDT POCT GLUCOSE BLOOD Routine 02/10/2025 1: [address] HEAD WO CONTRAST STAT 02/10/2025 1 1:10 AM EDT SAN URINE CULTURE TUBE STAT 02/10/2025 10:45 AM EDT URINALYSIS WITH REFLEX MICROSCOPIC AND CULTURE STAT 02/10/2025 10:45 AM EDT AMMONIA STAT 02/10/2025 10:45 AM EDT URINALYSIS WITH REFLEX MICROSCOPIC AND CULTURE STAT 02/10/2025 10:45 AM EDT COMPLETE BLOOD COUNT STAT 02/10/2025 10:45 AM EDT TROPONIN I HIGH SENSITIVITY STAT 02/10/2025 10:45 AM EDT THYROID STIMULATING HORMONE STAT 02/10/2025 10:45 AM EDT MAGNESIUM STAT 02/10/2025 10:45 AM EDT COMPREHENSIVE METABOLIC PANEL STAT 02/10/2025 10:45 AM EDT ECG 12-LEAD STAT 02/10/2025 10:19 AM EDT POCT GLUCOSE BLOOD Routine 02/10/2025 9: 15 AM EDT POCT GLUCOSE BLOOD Routine 02/10/2025 7: 31 AM EDT LAVENDER - EDTA Routine 02/10/2025 5:27 AM EDT SST - GOLD Routine 02/10/2025 5:27 AM EDT EXTRA TUBES Routine 02/10/2025 5:27 AM EDT PROTHROMBIN TIME WITH INR Routine 02/10/2025 5:27 AM EDT POCT GLUCOSE BLOOD Routine 02/09/2025 8: 07 PM EDT POCT GLUCOSE BLOOD Routine 02/09/2025 4: 27 PM EDT POCT GLUCOSE BLOOD Routine 02/09/2025 11 :12 AM EDT POCT GLUCOSE BLOOD Routine 02/09/2025 7: 26 AM EDT PROTHROMBIN TIME WITH INR Routine 02/09/2025 5:15 AM EDT LAVENDER - EDTA Routine 02/09/2025 5:11 AM EDT SST - GOLD Routine 02/09/2025 5:11 AM EDT EXTRA TUBES Routine 02/09/2025 5:11 AM EDT POCT GLUCOSE BLOOD Routine 02/08/2025 10 :49 PM EDT POCT GLUCOSE BLOOD Routine 02/08/2025 8: 20 PM EDT POCT GLUCOSE BLOOD Routine 02/08/2025 3: 58 PM EDT POCT GLUCOSE BLOOD Routine 02/08/2025 11 :04 AM EDT POCT GLUCOSE BLOOD Routine 02/08/2025 7: 28 AM EDT CBC WITH AUTO DIFFERENTIAL Routine 02/08/2025 5:24 AM EDT PROTHROMBIN TIME WITH INR Routine 02/08/2025 5:24 AM EDT COMPREHENSIVE METABOLIC PANEL Routine 02/08/2025 5:24 AM EDT CBC AND DIFFERENTIAL Routine 02/08/2025 5:24 AM EDT POCT GLUCOSE BLOOD Routine 02/07/2025 8: 43 PM EDT POCT GLUCOSE BLOOD Routine 02/07/2025 5: 09 PM EDT POCT GLUCOSE BLOOD Routine 02/07/2025 11 :46 AM EDT POCT GLUCOSE BLOOD Routine 02/07/2025 8: 16 AM EDT SST - GOLD Routine 02/07/2025 5:22 AM EDT EXTRA TUBES Routine 02/07/2025 5:22 AM EDT PROTHROMBIN TIME WITH INR Routine 02/07/2025 5:22 AM EDT COMPLETE BLOOD COUNT Routine 02/07/2025 5:22 AM EDT POCT GLUCOSE BLOOD Routine 02/06/2025 7: 59 PM EDT POCT GLUCOSE BLOOD Routine 02/06/2025 3: 25 PM EDT POCT GLUCOSE BLOOD Routine 02/06/2025 11 :28 AM EDT POCT GLUCOSE BLOOD Routine 02/06/2025 8: 04 AM EDT PROTHROMBIN TIME WITH INR Routine 02/06/2025 5:29 AM EDT COMPLETE BLOOD COUNT Routine 02/06/2025 5:29 AM EDT SST - GOLD Routine 02/06/2025 5:25 AM EDT EXTRA TUBES Routine 02/06/2025 5:25 AM EDT POCT GLUCOSE BLOOD Routine 02/05/2025 7: 43 PM EDT POCT GLUCOSE BLOOD Routine 02/05/2025 3: 32 PM EDT POCT GLUCOSE BLOOD Routine 02/05/2025 11 :41 AM EDT POCT GLUCOSE BLOOD Routine 02/05/2025 8: 42 AM EDT SST - GOLD Routine 02/05/2025 5:35 AM EDT EXTRA TUBES Routine 02/05/2025 5:35 AM EDT PROTHROMBIN TIME WITH INR Routine 02/05/2025 5:25 AM EDT COMPLETE BLOOD COUNT Routine 02/05/2025 5:25 AM EDT POCT GLUCOSE BLOOD Routine 02/04/2025 7: 55 PM EDT POCT GLUCOSE BLOOD Routine 02/04/2025 4: 16 PM EDT MEGAN COMPLETE Routine 02/04/2025 1:47 PM EDT Aortic valve stenosis, etiology of cardiac valve disease unspecified POCT GLUCOSE BLOOD Routine 02/04/2025 8: 09 AM EDT SST - GOLD Routine 02/04/2025 5:28 AM EDT EXTRA TUBES Routine 02/04/2025 5:28 AM EDT PROTHROMBIN TIME WITH INR Routine 02/04/2025 5:28 AM EDT COMPLETE BLOOD COUNT Routine 02/04/2025 5:28 AM EDT POCT GLUCOSE BLOOD Routine 02/03/2025 8: 58 PM EDT POCT GLUCOSE BLOOD Routine 02/03/2025 4: 12 PM EDT POCT GLUCOSE BLOOD Routine 02/03/2025 11 :18 AM EDT POCT GLUCOSE BLOOD Routine 02/03/2025 7: 43 AM EDT MAGNESIUM Routine 02/03/2025 5:23 AM EDT BASIC METABOLIC PANEL Routine 02/03/2025 5:23 AM EDT PROTHROMBIN TIME WITH INR Routine 02/03/2025 5:23 AM EDT COMPLETE BLOOD COUNT Routine 02/03/2025 5:23 AM EDT POCT GLUCOSE BLOOD Routine 02/02/2025 9: 37 PM EDT MR BRAIN WO CONTRAST Routine 02/02/2025 5:38 PM EDT POCT GLUCOSE BLOOD Routine 02/02/2025 4: 11 PM EDT TRANSTHORACIC ECHOCARDIOGRAM (TTE) COMPLETE W/ CONTRAST Routine 02/02/2025 1:35 PM EDT Aortic valve stenosis, etiology of cardiac valve disease unspecified POCT GLUCOSE BLOOD Routine 02/02/2025 1: 31 PM EDT ROUTINE EEG Routine 02/02/2025 11:58 AM EDT Seizure (CMS/HCC V24, CMS/HCC V28) POCT GLUCOSE BLOOD Routine 02/02/2025 7: 28 AM EDT TROPONIN I HIGH SENSITIVITY Routine 02/02/2025 5:54 AM EDT LACTATE Routine 02/02/2025 5:54 AM EDT PROTHROMBIN TIME WITH INR Routine 02/02/2025 5:36 AM EDT COMPLETE BLOOD COUNT Routine 02/02/2025 5:36 AM EDT MAGNESIUM Routine 02/02/2025 5:36 AM EDT BASIC METABOLIC PANEL Routine 02/02/2025 5:36 AM EDT TROPONIN I HIGH SENSITIVITY STAT 02/01/2025 10:15 PM EDT URINALYSIS WITH REFLEX MICROSCOPIC STAT 02/01/2025 9:15 PM EDT URINALYSIS WITH REFLEX MICROSCOPIC STAT 02/01/2025 9:15 PM EDT VENOUS BLOOD GAS STAT 02/01/2025 8:52 PM EDT TROPONIN I HIGH SENSITIVITY STAT 02/01/2025 8:52 PM EDT XR CHEST 1 VIEW STAT 02/01/2025 8:[address] ABDOMEN PELVIS WO CONTRAST STAT 02/01/2025 7:[address] CHEST WO CONTRAST STAT 02/01/2025 7:[address] HEAD WO CONTRAST STAT 02/01/2025 7 :46 PM EDT LACTATE STAT 02/01/2025 6:36 PM EDT CBC WITH AUTO DIFFERENTIAL STAT 02/01/2025 6:36 PM EDT PROLACTIN STAT 02/01/2025 6:36 PM EDT MAGNESIUM STAT 02/01/2025 6:36 PM EDT BASIC METABOLIC PANEL STAT 02/01/2025 6:36 PM EDT CBC AND DIFFERENTIAL STAT 02/01/2025 6:36 PM EDT POC GLUCOSE STAT 02/01/2025 6:33 PM EDT POCT GLUCOSE BLOOD Routine 02/01/2025 6: 31 PM EDT ECG 12-LEAD Routine 02/01/2025 6:13 PM EDT POCT GLUCOSE BLOOD Routine 02/01/2025 6: 11 PM EDT POCT GLUCOSE BLOOD Routine 02/01/2025 3: 45 PM EDT POCT GLUCOSE BLOOD Routine 02/01/2025 11 :05 AM EDT POCT GLUCOSE BLOOD Routine 02/01/2025 7: 28 AM EDT CBC WITH AUTO DIFFERENTIAL Routine 02/01/2025 5:29 AM EDT PROTHROMBIN TIME WITH INR Routine 02/01/2025 5:29 AM EDT COMPREHENSIVE METABOLIC PANEL Routine 02/01/2025 5:29 AM EDT CBC AND DIFFERENTIAL Routine 02/01/2025 5:29 AM EDT POCT GLUCOSE BLOOD Routine 01/31/2025 7: 52 PM EDT POCT GLUCOSE BLOOD Routine 01/31/2025 4: 19 PM EDT from Last 3 Months Results * POCT Glucose, blood (03/10/2025 12:24 PM EDT) Only the most recent of169 resultswithin the time period is included. [facility] Glucose POCT 192 70 - 199 mg/dL 03/10/2025 12:25 PM EDT [facility] Comment: Fasting Reference Range: 70-99 mg/dL Non-Fasting Reference Range: 70-199 mg/dL Blood Capillary blood specimen / Unknown 03/10/2025 12:24 PM EDT 03/10/2025 12:26 PM EDT Dixie Mcgee MD LAB POINT OF CARE TE ST DOCKED DEVICE UNSOLICITED RESULTS Final Result [facility] [address] [place] [address], [place] [phone] * (ABNORMAL) Prothrombin time with INR (03/10/2025 8:12 AM EDT) Only the most recent of42 resultswithin the time period is included. Protime 35.9(H) 10.5 - 13.3 sec LAB COAGULATION METHOD 03/10/2025 9:36 AM EDT [facility] INR 3.1(H) 0.8 - 1.1 LAB COAGULATION METHOD 03/10/2025 9:36 AM EDT [facility] Blood Venous blood specimen / Unknown Venipuncture / Unknown 03/10/2025 8:12 AM EDT 03/10/2025 8:54 AM EDT Narrative [facility] - 03/10/2025 9:36 AM EDT Std. Therapy 2.0-3.0 INR High Dose Therapy 3.0-4.5 INR Ranges may vary depending on clinical indications and protocol. us Con Sewell MD LAB BLOOD ORDERABLES Final Resul t [facility] [address] [place] [address], [place] [phone] * (ABNORMAL) CBC - Daily for 5 Days (03/10/2025 8:12 AM EDT) Only the most recent of30 resultswithin the time period is included. WBC 9.6 4.0 - 10.5 K/mcL LAB HEMETOLOGY METHOD 03/10/2025 9:05 AM EDT [facility] RBC 4.08(L) 4.20 - 5.40 M/mcL LAB HEMETOLOGY METHOD 03/10/2025 9:05 AM EDT [facility] Hemoglobin 9.0(L) 12.5 - 16.0 g/dL LAB HEMETOLOGY METHOD 03/10/2025 9:05 AM EDT [facility] Hematocrit 29.0(L) 37.0 - 47.0 % LAB HEMETOLOGY METHOD 03/10/2025 9:05 AM EDT [facility] MCV 71.0(L) 78.0 - 100.0 FL LAB HEMETOLOGY METHOD 03/10/2025 9:05 AM EDT [facility] MCH 22.0(L) 25.0 - 33.0 pcg LAB HEMETOLOGY METHOD 03/10/2025 9:05 AM EDT [facility] MCHC 31.0(L) 32.0 - 36.0 g/dL LAB HEMETOLOGY METHOD 03/10/2025 9:05 AM EDT [facility] RDW 19.4(H) 12.1 - 16.2 % LAB HEMETOLOGY METHOD 03/10/2025 9:05 AM EDT [facility] Platelets 396 150 - 450 K/mcL LAB HEMETOLOGY METHOD 03/10/2025 9:05 AM EDT [facility] MPV 8.2 7.4 - 11.4 FL LAB HEMETOLOGY METHOD 03/10/2025 9:05 AM EDT [facility] Blood Venous blood specimen / Unknown Venipuncture / Unknown 03/10/2025 8:12 AM EDT 03/10/2025 8:54 AM EDT us Dixie Mcgee MD LAB BLOOD ORDERABLES Final Resu lt [facility] [address] [place] [address], * CT Head wo Contrast (03/04/2025 2:26 AM EDT) Only the most recent of6 resultswithin the time period is included. Anatomical Region Laterality Modality Head and Neck Computed Tomogra phy 03/04/2025 2:33 AM EDT Impressions 03/04/2025 2:35 AM EDT No acute intracranial abnormality. -------- FINAL REPORT -------- Dictated By: Wyatt Benjamin Dictated Date: 03/04/2025 02:33 ET Assigned Physician: Wyatt Benjamin Reviewed and Electronically Signed By: Wyatt Benjmain Signed Date: 03/04/2025 02:35 ET Workstation ID: [id number] Transcribed By: Self Edit Transcribed Date: 03/04/2025 02:33 ET Narrative 03/04/2025 2:35 AM EDT PROCEDURE: CT HEAD WO CONTRAST HISTORY: 79 years Female muscle weakness in limbs right-sided weakness TECHNIQUE: CT obtained through the head without intravenous contrast administration. COMPARISON: None. 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 Brain morphology, ventricles and sulci are unremarkable for age. No mass, mass effect, midline shift, hemorrhage or acute infarct. White matter hypodensities are probably related to small vessel ischemic disease. No significant sinus or mastoid disease. Procedure Note Wyatt Benjamin MD - 03/04/2025 PROCEDURE: CT HEAD WO CONTRAST HISTORY: 79 years Female muscle weakness in limbs right-sided weakness TECHNIQUE: CT obtained through the head without intravenous contrastadministration. COMPARISON: None. 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 Brain morphology, ventricles and sulci are unremarkable for age. No mass, mass effect, midline shift, hemorrhage or acute infarct. White matter hypodensities are probably related to small vessel ischemicdisease. No significant sinus or mastoid disease. IMPRESSION: No acute intracranial abnormality. -------- FINAL REPORT -------- Dictated By: Wyatt Benjamin Dictated Date: 03/04/2025 02:33 ET Assigned Physician: Wyatt Benjamin Reviewed and Electronically Signed By: Wyatt Benjamin Signed Date: 03/04/2025 02:35 ET Workstation ID: [id number] Transcribed By: Self Edit Transcribed Date: 03/04/2025 02:33 ET Con Sewell MD [facility] CT PROCEDURES Final Result * Venous blood gas (03/04/2025 2:09 AM EDT) Only the most recent of2 resultswithin the time period is included. pH, Adriano 7.38 7.35 - 7.45 pH LAB BLOOD GAS METHOD 03/04/2025 2:41 AM EDT [facility] pCO2, Adriano 49 mmHg LAB BLOOD GAS METHOD 03/04/2025 2:41 AM EDT [facility] Comment:No established refer ence range. pO2, Adriano 124 mmHg LAB BLOOD GAS METHOD 03/04/2025 2:41 AM EDT [facility] Comment:No established refer ence range. HCO3, Venous 27.3 mmol/L LAB BLOOD GAS METHOD 03/04/2025 2:41 AM EDT [facility] Comment:No established refer ence range. O2 Sat, Adriano 99.2 % LAB BLOOD GAS METHOD 03/04/2025 2:41 AM EDT [facility] Comment:No established refer ence range. Base Excess, Adriano 3.0 mmol/L LAB BLOOD GAS METHOD 03/04/2025 2:41 AM EDT [facility] Comment:No established refer ence range. Blood Venous blood specimen / Unknown Venipuncture / Unknown 03/04/2025 2:09 AM EDT 03/04/2025 2:29 AM EDT Con Sewell MD LAB BLOOD ORDERABLES Final Resul t [facility] [address] [place] [address], [place] [phone] * (ABNORMAL) Basic metabolic panel (03/04/2025 2:09 AM EDT) Only the most recent of8 resultswithin the time period is included. Sodium 139 135 - 145 mmol/L LAB CHEMISTRY METHOD 03/04/2025 3:02 AM EDT [facility] Potassium 4.0 3.5 - 5.1 mmol/L LAB CHEMISTRY METHOD 03/04/2025 3:02 AM EDT [facility] Chloride 102 98 - 107 mmol/L LAB CHEMISTRY METHOD 03/04/2025 3:02 AM EDT [facility] CO2 30 24 - 32 mmol/L LAB CHEMISTRY METHOD 03/04/2025 3:02 AM EDT [facility] Anion Gap 7 5 - 14 LAB CHEMISTRY METHOD 03/04/2025 3:02 AM EDT [facility] Glucose 120 70 - 199 mg/dL LAB CHEMISTRY METHOD 03/04/2025 3:02 AM EDT [facility] BUN 19(H) 7 - 17 mg/dL LAB CHEMISTRY METHOD 03/04/2025 3:02 AM EDT [facility] Creatinine 0.70 0.50 - 1.00 mg/dL LAB CHEMISTRY METHOD 03/04/2025 3:02 AM EDT [facility] eGFR 88 >=60 mL/min/1. 73m2 LAB CHEMISTRY METHOD 03/04/2025 3:02 AM EDT [facility] Comment:Calculation based on the Chronic Kidney Disease Epidemiology Collaboration (CKD-EPI) equation refit without adjustment for race. BUN/Creatinine Ratio 27.1(H) 12.0 - 20.0 LAB CHEMISTRY METHOD 03/04/2025 3:02 AM EDT [facility] Calcium 8.9 8.4 - 10.2 mg/dL LAB CHEMISTRY METHOD 03/04/2025 3:02 AM EDT [facility] Blood Venous blood specimen / Unknown Venipuncture / Unknown 03/04/2025 2:09 AM EDT 03/04/2025 2:30 AM EDT Con Sewell MD LAB BLOOD ORDERABLES Final Resul t [facility] [address] [place] [address], [place] [phone] * Heparin and low molecular weight anti Xa level (03/02/2025 12:49 PM EDT) Only the most recent of10 resultswithin the time period is included. Heparin Anti-Xa <0.04 I Unit/mL LAB COAGULATION METHOD 03/02/2025 1:23 PM EDT [facility] Blood Venous blood specimen / Unknown Venipuncture / Unknown 03/02/2025 12:49 PM EDT 03/02/2025 1:06 PM EDT Narrative [facility] - 03/02/2025 1:23 PM EDT Therapeutic Ranges Heparin Thromboembolic/Standard/Full Dose Protocol: Age 18+ Years 0.30-0.70 IU/mL Age 0-17 Years 0.35-0.70 IU/mL Heparin Cardiac/Low Dose Protocol: 0.30-0.5 IU/mL Low Molecular Weight Heparin: Age 18+ Years 0.50-1.50 IU/mL Age 0-17 Years 0.50-1.00 IU/mL Con Sewell MD LAB BLOOD ORDERABLES Final Resul t Performing Organization Address City/[facility] de Phone Number [facility] [address] [place] [address], * (ABNORMAL) Troponin I high sensitivity (03/01/2025 9:36 PM EDT) Only the most recent of5 resultswithin the time period is included. High Sensitivity Troponin I 53(H) 0 - 14 ng/L LAB CHEMISTRY METHOD 03/01/2025 10:41 PM EDT [facility] Blood Venous blood specimen / Unknown Venipuncture / Unknown 03/01/2025 9:36 PM EDT 03/01/2025 9:45 PM EDT Narrative [facility] - 03/01/2025 10:41 PM EDT HSTnI results stratify to HIGH RISK category if any value >100 ng/L or delta at 1 hour is greater than or equal to 15 ng/L (male and female). Note: Delta values are not applicable if symptoms began more than 12 hours pre-arrival. Risk stratification should include the calculation of the HEART score. The testing method is an immunoenzymatic assay manufactured by [employer] and performed on the [employer] DxI 800. us Con Sewell MD LAB BLOOD ORDERABLES Final Resul t [facility] [address] [place] [address], [place] [phone] * (ABNORMAL) CBC auto differential (03/01/2025 9:36 PM EDT) Only the most recent of6 resultswithin the time period is included. WBC 8.9 4.0 - 10.5 K/mcL LAB HEMETOLOGY METHOD 03/01/2025 9:56 PM EDT [facility] RBC 3.63(L) 4.20 - 5.40 M/mcL LAB HEMETOLOGY METHOD 03/01/2025 9:56 PM EDT [facility] Hemoglobin 8.2(L) 12.5 - 16.0 g/dL LAB HEMETOLOGY METHOD 03/01/2025 9:56 PM EDT [facility] Hematocrit 25.8(L) 37.0 - 47.0 % LAB HEMETOLOGY METHOD 03/01/2025 9:56 PM EDT [facility] MCV 71.0(L) 78.0 - 100.0 FL LAB HEMETOLOGY METHOD 03/01/2025 9:56 PM EDT [facility] MCH 22.4(L) 25.0 - 33.0 pcg LAB HEMETOLOGY METHOD 03/01/2025 9:56 PM EDT [facility] MCHC 31.6(L) 32.0 - 36.0 g/dL LAB HEMETOLOGY METHOD 03/01/2025 9:56 PM EDT [facility] RDW 18.6(H) 12.1 - 16.2 % LAB HEMETOLOGY METHOD 03/01/2025 9:56 PM EDT [facility] Platelets 355 150 - 450 K/mcL LAB HEMETOLOGY METHOD 03/01/2025 9:56 PM EDT [facility] MPV 8.1 7.4 - 11.4 FL LAB HEMETOLOGY METHOD 03/01/2025 9:56 PM EDT [facility] Neutrophils Relative 79.6(H) 44.0 - 74.0 % LAB HEMETOLOGY METHOD 03/01/2025 9:56 PM EDT [facility] Lymphocytes Relative 10.6(L) 20.0 - 48.0 % LAB HEMETOLOGY METHOD 03/01/2025 9:56 PM EDT [facility] Monocytes Relative 8.2 2.0 - 12.0 % LAB HEMETOLOGY METHOD 03/01/2025 9:56 PM EDT [facility] Eosinophils Relative 1.0 0.0 - 6.0 % LAB HEMETOLOGY METHOD 03/01/2025 9:56 PM EDT [facility] Basophils Relative 0.6 0.0 - 2.0 % LAB HEMETOLOGY METHOD 03/01/2025 9:56 PM EDT [facility] Neutrophils Absolute 7.10 1.80 - 7.80 K/mcL LAB HEMETOLOGY METHOD 03/01/2025 9:56 PM EDT [facility] Lymphocytes Absolute 0.90(L) 1.00 - 3.20 K/mcL LAB HEMETOLOGY METHOD 03/01/2025 9:56 PM EDT [facility] Monocytes Absolute 0.70 0.00 - 0.80 K/mcL LAB HEMETOLOGY METHOD 03/01/2025 9:56 PM EDT [facility] Eosinophils Absolute 0.10 0.00 - 0.50 K/mcL LAB HEMETOLOGY METHOD 03/01/2025 9:56 PM EDT [facility] Basophils Absolute 0.10 0.00 - 0.20 K/mcL LAB HEMETOLOGY METHOD 03/01/2025 9:56 PM EDT [facility] Blood Venous blood specimen / Unknown Venipuncture / Unknown 03/01/2025 9:36 PM EDT 03/01/2025 9:45 PM EDT Con Sewell MD LAB BLOOD ORDERABLES Final Resul t [facility] [address] [place] [address], [place] [phone] * (ABNORMAL) Iron and TIBC (03/01/2025 9:36 PM EDT) Only the most recent of2 resultswithin the time period is included. Iron 14(L) 37 - 170 mcg/dL LAB CHEMISTRY METHOD 03/01/2025 10:24 PM EDT [facility] UIBC 199 155 - 355 mcg/dL LAB CHEMISTRY METHOD 03/01/2025 10:24 PM EDT [facility] TIBC 213(L) 250 - 450 mcg/dL LAB CHEMISTRY METHOD 03/01/2025 10:24 PM EDT [facility] Iron Saturation 7(L) 20 - 45 % LAB CHEMISTRY METHOD 03/01/2025 10:24 PM EDT [facility] Blood Venous blood specimen / Unknown Venipuncture / Unknown 03/01/2025 9:36 PM EDT 03/01/2025 9:45 PM EDT us Con Sewell MD LAB BLOOD ORDERABLES Final Resul t [facility] [address] [place] [address], [place] [phone] * Activated partial thromboplastin time (03/01/2025 9:36 PM EDT) Only the most recent of4 resultswithin the time period is included. aPTT 35.0 25.0 - 37.0 sec LAB COAGULATION METHOD 03/01/2025 10:16 PM EDT [facility] Blood Venous blood specimen / Unknown Venipuncture / Unknown 03/01/2025 9:36 PM EDT 03/01/2025 9:45 PM EDT us Con Sewell MD LAB BLOOD ORDERABLES Final Resul t Performing Organization Address City/[facility]/ZIP Co de Phone Number [facility] [address] [place] [address], [place] [phone] * Ferritin (03/01/2025 9:36 PM EDT) Only the most recent of2 resultswithin the time period is included. Ferritin 61 10 - 120 ng/mL LAB CHEMISTRY METHOD 03/01/2025 10:41 PM EDT [facility] Blood Venous blood specimen / Unknown Venipuncture / Unknown 03/01/2025 9:36 PM EDT 03/01/2025 9:45 PM EDT us Con Sewell MD LAB BLOOD ORDERABLES Final Resul t Performing Organization Address [facility] de Phone Number [facility] [address] [place] [address], [place] [phone] * CT Angio Head/Neck Stroke wo and/or w Contrast (03/01/2025 9:28 PM EDT) Only the most recent of2 resultswithin the time period is included. Anatomical Region Laterality Modality Head and Neck Computed Tomogra phy 03/01/2025 9:37 PM EDT Impressions 03/01/2025 9:57 PM EDT 1. Unchanged occluded distal left SHILPI. 2. Calcific atherosclerosis involving the carotid bulbs, without hemodynamically significant stenosis. 3. 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 4. Degenerative spondylosis. 5. Bilateral small thyroid nodules. -------- FINAL REPORT -------- Dictated By: Shaneka Jackson Dictated Date: 03/01/2025 21:37 ET Assigned Physician: Shankea Jackson Reviewed and Electronically Signed By: Taha, Ammar Signed Date: 03/01/2025 21:57 ET Workstation ID: [id number] Transcribed By: Self Edit Transcribed Date: 03/01/2025 21:37 ET Narrative 03/01/2025 9:57 PM EDT EXAMINATION: CT Angiogram of the Head and Neck with IV Contrast CLINICAL INDICATION: Stroke code COMPARISON: Same day CT and CTA head/neck dated 02/17/2025. TECHNIQUE: Axial images along with multiplanar reformats obtained. 3D MIP images were generated. NASCET criteria were utilized. Radiation dose reduction was achieved using ALARA (as low as reasonably achievable) principals including automatic exposure control, adjusting the mA and/or KV setting according to patient?s size and weight, the use of iterative reconstruction techniques as well as performing sagittal and coronal reconstruction images when applicable. FINDINGS: CTA NECK: Calcific atherosclerosis involving the aortic arch and origin of the great vessels. No significant stenosis or occlusion involving the carotid or vertebral arteries. The common carotid arteries, carotid bulbs, and ICAs are patent. Calcific atherosclerosis involving the carotid bulbs without hemodynamically significant stenosis. No dissection or vascular malformation. Multilevel spondylosis and degenerative disc disease with various degrees of uncovertebral/facet arthropathy, disc space narrowing and osteophytosis. Bilateral small thyroid nodules. CTA HEAD: Unchanged occluded distal left SHLIPI. There is normal enhancement of the intracranial internal carotid and vertebral arteries. 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 There is normal enhancement of the branches of the bilateral anterior, middle, and posterior cerebral arteries. No intracranial aneurysms or other intracranial neurovascular abnormality. Procedure Note Shaneka Jackson MD - 03/01/2025 EXAMINATION: CT Angiogram of the Head and Neck with IV Contrast CLINICAL INDICATION: Stroke code COMPARISON: Same day CT and CTA head/neck dated 02/17/2025. TECHNIQUE: Axial images along with multiplanar reformats obtained. 3D MIP images weregenerated. NASCET criteria were utilized. Radiation dose reduction was achieved using ALARA (as low as reasonablyachievable) principals including automatic exposure control, adjusting themA and/or KV setting according to patient?s size and weight, the use ofiterative reconstruction techniques as well as performing sagittal andcoronal reconstruction images when applicable. FINDINGS: CTA NECK: Calcific atherosclerosis involving the aortic arch and origin of the greatvessels. No significant stenosis or occlusion involving the carotid or vertebralarteries. The common carotid arteries, carotid bulbs, and ICAs are patent. Calcific atherosclerosis involving the carotid bulbs withouthemodynamically significant stenosis. No dissection or vascular malformation. Multilevel spondylosis and degenerative disc disease with various degreesof uncovertebral/facet arthropathy, disc space narrowing andosteophytosis. Bilateral small thyroid nodules. CTA HEAD: Unchanged occluded distal left HSILPI. There is normal enhancement of the intracranial internal carotid andvertebral arteries. Calcific atherosclerosis of the bilateral cavernous ICAs withouthemodynamically significant stenosis. There is normal enhancement of the branches of the bilateral anterior,middle, and posterior cerebral arteries. No intracranial aneurysms or other intracranial neurovascular abnormality. IMPRESSION: 1. Unchanged occluded distal left SHILPI. 2. Calcific atherosclerosis involving the carotid bulbs, withouthemodynamically significant stenosis. 3. Calcific atherosclerosis of the bilateral cavernous ICAs, withouthemodynamically significant stenosis. 4. Degenerative spondylosis. 5. Bilateral small thyroid nodules. -------- FINAL REPORT -------- Dictated By: Shaneka Jackson Dictated Date: 03/01/2025 21:37 ET Assigned Physician: Shaneka Jackson Reviewed and Electronically Signed By: Shaneka Jackson Signed Date: 03/01/2025 21:57 ET Workstation ID: [id number] Transcribed By: Self Edit Transcribed Date: 03/01/2025 21:37 ET Con Sewell MD IM CT PROCEDURES Final Result * CT Head Stroke wo Contrast (03/01/2025 9:19 PM EDT) Only the most recent of2 resultswithin the time period is included. Anatomical Region Laterality Modality Head and Neck Computed Tomogra phy 03/01/2025 9:20 PM EDT Impressions 03/01/2025 9:26 PM EDT No acute intracranial abnormality. Please note CT has low sensitivity in detecting detecting early ischemic changes and subtle lesions. If clinical concern for ischemic event or mass lesion persists MRI may be considered. -------- FINAL REPORT -------- Dictated By: Sofi Liu Dictated Date: 03/01/2025 21:20 ET Assigned Physician: Sofi Liu Reviewed and Electronically Signed By: Sofi Liu Signed Date: 03/01/2025 21:26 ET Workstation ID: [id number] Transcribed By: Self Edit Transcribed Date: 03/01/2025 21:20 ET Narrative 03/01/2025 9:[address] HEAD STROKE WO CONTRAST Reason for exam (per EHR order): Stroke, new L sided weakness TECHNIQUE: Multidetector-row CT of the head was performed without intravenous contrast using tailored dose modulation techniques. Images were reconstructed in the axial, coronal, and sagittal planes. COMPARISON: CTA head and neck on 02/17/2025, CT head on 02/26/2025 FINDINGS: Brain Parenchyma: Similar hypodensity in the left greater than right frontal lobes likely sequela of prior infarct. Similar encephalomalacia of the right superior cerebellum sequela of prior infarct. There are areas of hypodensity in the periventricular white matter likely a manifestation of chronic small vessel disease. No midline shift, mass effect, parenchymal hemorrhage, or evidence of acute territorial infarct. Ventricular System and Extra-Axial Spaces: The ventricles and sulci are prominent. No extra-axial fluid collections. Basilar cisterns are patent. No hydrocephalus. Calvarium, Skull Base, and Sella: No calvarial fracture. No significant soft tissue hematoma. Paranasal Sinuses and Mastoid Air Cells: Clear. Orbits: Normal. Procedure Note Sofi Liu MD - 03/01/2025 CT HEAD STROKE WO CONTRAST Reason for exam (per EHR order): Stroke, new L sided weakness TECHNIQUE: Multidetector-row CT of the head was performed withoutintravenous contrast using tailored dose modulation techniques. Imageswere reconstructed in the axial, coronal, and sagittal planes. COMPARISON: CTA head and neck on 02/17/2025, CT head on 02/26/2025 FINDINGS: Brain Parenchyma: Similar hypodensity in the left greater than rightfrontal lobes likely sequela of prior infarct. Similar encephalomalaciaof the right superior cerebellum sequela of prior infarct. There areareas of hypodensity in the periventricular white matter likely amanifestation of chronic small vessel disease. No midline shift, masseffect, parenchymal hemorrhage, or evidence of acute territorialinfarct. Ventricular System and Extra-Axial Spaces: The ventricles and sulci areprominent. No extra-axial fluid collections. Basilar cisterns are patent.No hydrocephalus. Calvarium, Skull Base, and Sella: No calvarial fracture. No significantsoft tissue hematoma. Paranasal Sinuses and Mastoid Air Cells: Clear. Orbits: Normal. IMPRESSION: No acute intracranial abnormality. Please note CT has low sensitivity in detecting detecting early ischemicchanges and subtle lesions. If clinical concern for ischemic event ormass lesion persists MRI may be considered. -------- FINAL REPORT -------- Dictated By: Sofi Liu Dictated Date: 03/01/2025 21:20 ET Assigned Physician: Sofi Liu Reviewed and Electronically Signed By: Sofi Liu Signed Date: 03/01/2025 21:26 ET Workstation ID: [id number] Transcribed By: Self Edit Transcribed Date: 03/01/2025 21:20 ET us Con Sewell MD IMG CT PROCEDURES Final Result * Magnesium (02/28/2025 6:49 AM EDT) Only the most recent of15 resultswithin the time period is included. [facility] Magnesium 1.9 1.7 - 2.8 mg/dL LAB CHEMISTRY METHOD 02/28/2025 7:41 AM EDT [facility] Blood Venous blood specimen / Unknown Venipuncture / Unknown 02/28/2025 6:49 AM EDT 02/28/2025 7:09 AM EDT us Con Sewell MD LAB BLOOD ORDERABLES Final Resul t [facility] [address] [place] [address], * (ABNORMAL) Comprehensive metabolic panel (02/28/2025 6:49 AM EDT) Only the most recent of19 resultswithin the time period is included. [facility] Sodium 139 135 - 145 mmol/L LAB CHEMISTRY METHOD 02/28/2025 7:41 AM [facility] Potassium 4.1 3.5 - 5.1 mmol/L LAB CHEMISTRY METHOD 02/28/2025 7:41 AM [facility] Chloride 105 98 - 107 mmol/L LAB CHEMISTRY METHOD 02/28/2025 7:41 AM [facility] CO2 27 24 - 32 mmol/L LAB CHEMISTRY METHOD 02/28/2025 7:41 AM [facility] Anion Gap 7 5 - 14 LAB CHEMISTRY METHOD 02/28/2025 7:41 AM [facility] Glucose 113 70 - 199 mg/dL LAB CHEMISTRY METHOD 02/28/2025 7:41 AM [facility] BUN 21(H) 7 - 17 mg/dL LAB CHEMISTRY METHOD 02/28/2025 7:41 AM [facility] Creatinine 0.60 0.50 - 1.00 mg/dL LAB CHEMISTRY METHOD 02/28/2025 7:41 AM [facility] eGFR 91 >=60 mL/min/1. 73m2 LAB CHEMISTRY METHOD 02/28/2025 7:41 AM [facility] Comment:Calculation based on the Chronic Kidney Disease Epidemiology Collaboration (CKD-EPI) equation refit without adjustment for race. BUN/Creatinine Ratio 35.0(H) 12.0 - 20.0 LAB CHEMISTRY METHOD 02/28/2025 7:41 AM [facility] Calcium 8.8 8.4 - 10.2 mg/dL LAB CHEMISTRY METHOD 02/28/2025 7:41 AM [facility] AST (SGOT) 32 5 - 40 unit/L LAB CHEMISTRY METHOD 02/28/2025 7:41 AM [facility] ALT (SGPT) 21 7 - 52 unit/L LAB CHEMISTRY METHOD 02/28/2025 7:41 AM [facility] Alkaline Phosphatase 84 34 - 104 unit/L LAB CHEMISTRY METHOD 02/28/2025 7:41 AM EDT [facility] Total Protein 6.3(L) 6.4 - 8.5 g/dL LAB CHEMISTRY METHOD 02/28/2025 7:41 AM EDT [facility] Albumin 3.1(L) 3.5 - 5.0 g/dL LAB CHEMISTRY METHOD 02/28/2025 7:41 AM EDT [facility] Total Bilirubin 0.3 0.3 - 1.0 mg/dL LAB CHEMISTRY METHOD 02/28/2025 7:41 AM EDT [facility] Blood Venous blood specimen / Unknown Venipuncture / Unknown 02/28/2025 6:49 AM EDT 02/28/2025 7:09 AM EDT Diomedes Moore MD LAB BLOOD ORDERABLES Final Resul t [facility] [address] [place] [address], [place] [phone] * ECG 12 lead (02/26/2025 12:03 PM EDT) Only the most recent of9 resultswithin the time period is included. Ventricular Rate ECG 101 BPM GEMUSE Atrial Rate 113 BPM GEMUSE QRS Duration 160 ms GEMUSE Q-T Interval 422 ms GEMUSE QTc 547 ms GEMUSE R Benson 2 degrees GEMUSE T Benson -168 degrees GEMUSE ECG Interpretation Atrial fibrillation with rapid ventricular response Left bundle branch block Abnormal ECG When compared with ECG of 21-FEB-2025 11:22, T wave inversion now evident in Inferior leads T wave inversion more evident in Lateral leads Confirmed by Ana Valenzuela ([id number]) on 02/26/2025 3:09:34 PM GEMUSE 02/26/2025 12:0 3 PM EDT 02/26/2025 3:09 PM EDT us Con Sewell MD ECG ORDERABLES Final Result GEMUSE * XR Chest 1 View (02/20/2025 10:28 AM EDT) Only the most recent of2 resultswithin the time period is included. Anatomical Region Laterality Modality Body Radiographic [place] ging 02/20/2025 10:4 8 AM EDT Impressions 02/20/2025 10:50 AM EDT 1. Low lung volumes with mild bibasilar reticular opacities, likely atelectasis though aspiration or infection could appear similar. 2. Suggestion of enlarged cardiac silhouette -------- FINAL REPORT -------- Dictated By: Simón Lewis Dictated Date: 02/20/2025 10:48 ET Assigned Physician: Simón Lewis Reviewed and Electronically Signed By: Simón Lewis Signed Date: 02/20/2025 10:50 ET Workstation ID: [id number] Transcribed By: Self Edit Transcribed Date: 02/20/2025 10:48 ET Narrative 02/20/2025 10:50 AM EDT EXAMINATION: XR CHEST 1 VIEW 02/20/2025 10:06 AM CLINICAL HISTORY: Concern for aspiration COMPARISON: None FINDINGS: Low lung volumes with mild bibasilar reticular opacities. No confluent consolidation. No pleural effusion or pneumothorax. Aortic valvular prosthesis in place. Prominent cardiac silhouette. Mediastinal contours otherwise unremarkable. Median sternotomy wires in place.. Procedure Note Simón Lewis MD - 02/20/2025 EXAMINATION: XR CHEST 1 VIEW 02/20/2025 10:06 AM CLINICAL HISTORY: Concern for aspiration COMPARISON: None FINDINGS: Low lung volumes with mild bibasilar reticular opacities. No confluentconsolidation. No pleural effusion or pneumothorax. Aortic valvular prosthesis in place. Prominent cardiac silhouette.Mediastinal contours otherwise unremarkable. Median sternotomy wires inplace.. IMPRESSION: 1. Low lung volumes with mild bibasilar reticular opacities, likelyatelectasis though aspiration or infection could appear similar. 2. Suggestion of enlarged cardiac silhouette -------- FINAL REPORT -------- Dictated By: Simón Lewis Dictated Date: 02/20/2025 10:48 ET Assigned Physician: Simón Lewis Reviewed and Electronically Signed By: Simón Lewis Signed Date: 02/20/2025 10:50 ET Workstation ID: [id number] Transcribed By: Self Edit Transcribed Date: 02/20/2025 10:48 ET Jeremi Galdamez MD IMG XR PROCEDURES Final Result * Blood Culture, Peripheral Draw #2 (02/20/2025 10:28 AM EDT) Only the most recent of2 resultswithin the time period is included. Culture, Blood No growth at 5 days 02/25/2025 11:01 AM EDT [facility] Blood Venous blood specimen / Unknown Venipuncture / Unknown 02/20/2025 10:28 AM EDT 02/20/2025 10:35 AM EDT us Jeremi Galdamez MD LAB MICROBIOLOGY - GENERAL ORDER JENNIFER Final Result [facility] [address] [place] [address], [place] [phone] * (ABNORMAL) Urinalysis with reflex microscopic and culture (02/20/2025 4:17 AM EDT) Only the most recent of4 resultswithin the time period is included. Color, Urine Yellow Yellow, Colorless LAB URINALYSIS - AUTOMATED METHOD 02/20/2025 4:43 AM EDT [facility] Clarity, Urine Clear Clear LAB URINALYSIS - AUTOMATED METHOD 02/20/2025 4:43 AM EDT [facility] Specific [place] Urine 1.029 1.005 - 1.030 LAB URINALYSIS - AUTOMATED METHOD 02/20/2025 4:43 AM EDT [facility] pH, Urine 5.0(A) 5.0 - 8.0 pH LAB URINALYSIS - AUTOMATED METHOD 02/20/2025 4:43 AM EDT [facility] Leukocytes, Urine Negative Negative WBCs/mcL LAB URINALYSIS - AUTOMATED METHOD 02/20/2025 4:43 AM EDT [facility] Nitrite, Urine Negative Negative LAB URINALYSIS - AUTOMATED METHOD 02/20/2025 4:43 AM EDT [facility] Protein, Urine 30(A) Negative mg/dL LAB URINALYSIS - AUTOMATED METHOD 02/20/2025 4:43 AM EDT [facility] Glucose, Urine >500(A) Negative mg/dL LAB URINALYSIS - AUTOMATED METHOD 02/20/2025 4:43 AM EDT [facility] Ketones, Urine Trace(A) Negative mg/dL LAB URINALYSIS - AUTOMATED METHOD 02/20/2025 4:43 AM EDT [facility] Blood, Urine Negative Negative mg/dL LAB URINALYSIS - AUTOMATED METHOD 02/20/2025 4:43 AM EDT [facility] Urine Urine specimen obtained by clean catch procedure / Unknown Non-blood Collection / Unknown 02/20/2025 4:17 AM EDT 02/20/2025 4:26 AM EDT us Jeremi Galdamez MD LAB URINE ORDERABLES Final Resul t [facility] [address] [place] [address], * San urine culture tube (02/20/2025 4:17 AM EDT) Only the most recent of4 resultswithin the time period is included. Extra Tube Hold for add-ons. 02/20/2025 6:01 AM EDT [facility] Comment:Auto resulted. Urine Urine specimen obtained by clean catch procedure / Unknown Non-blood Collection / Unknown 02/20/2025 4:17 AM EDT 02/20/2025 4:26 AM EDT us Jeremi Galdamez MD LAB URINE ORDERABLES Final Resul t Performing Organization Address City/[facility]/ZIP Co de Phone Number [facility] [address] [place] [address], [place] [phone] * Phosphorus (02/19/2025 8:25 AM EDT) Only the most recent of3 resultswithin the time period is included. Phosphorus 2.9 2.5 - 4.5 mg/dL LAB CHEMISTRY METHOD 02/19/2025 9:07 AM EDT [facility] Blood Venous blood specimen / Unknown Venipuncture / Unknown 02/19/2025 8:25 AM EDT 02/19/2025 8:34 AM EDT Diomedes Moore MD LAB BLOOD ORDERABLES Final Resul t Performing Organization Address [facility] Co de Phone Number [facility] [address] [place] [address], [place] [phone] * CT Angio Head/Neck wo and/or w Contrast (02/17/2025 3:28 PM EDT) Only the most recent of2 resultswithin the time period is included. 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 New contiguous area of acute infarction in the left precentral gyrus and left middle frontal gyrus. Evolving acute to subacute infarct in the anterior left basal ganglia. Small acute infarct in the right sensorimotor cortex at the vertex. Evolving smaller right SHILPI territorial infarction involving the right superior frontal gyrus medially. Acute infarcts again visible in the corpus callosum and cingulate gyri. Stable steno-occlusive disease in the SHILPI vasculature and at the left carotid terminus. No hemodynamically significant stenosis or occlusion in the cervical vasculature. -------- FINAL REPORT -------- Dictated By: Rashard Keys Dictated Date: 02/17/2025 15:35 ET Assigned Physician: Rashard Keys Reviewed and Electronically Signed By: Rashard Keys Signed Date: 02/17/2025 15:57 ET Workstation ID: [id number] Transcribed By: Self Edit Transcribed Date: 02/17/2025 15:35 ET Narrative 02/17/2025 3:57 PM EDT EXAMINATION: CTA OF THE HEAD AND NECK WITH CONTRAST CT OF THE HEAD WITHOUT CONTRAST CLINICAL INFORMATION: Status post balloon angioplasty. Patient now with worsening mental status. COMPARISON: CT imaging from 02/14/2025. Brain MRI dated 02/14/2025. TECHNIQUE: Noncontrast imaging of the head initially acquired. Test bolus sequences followed by intravenous administration 85 mL of ISOVUE-370. Helical imaging was performed in the axial plane from the mediastinum to the skull vertex. Delayed postcontrast imaging of the head was also performed. The data was processed at the technologist development's workstation for generation of MIP sequences. Three-dimensional volume rendered reformatted images were also generated at an offline 3-D workstation. Stenoses are assessed in accordance with NASCET criteria unless otherwise indicated. This CT examination was performed using dose optimization techniques as appropriate, variously including the following: *Automated exposure control *Adjustment of mA and/or kV according to patient size (this includes techniques or standardized protocols for targeted exams where dose is matched to indication/reason for exam; i.e. extremities or head) *Use of iterative reconstruction technique FINDINGS: CT head: Further developed and evolved left SHILPI territorial infarction involving the superior left frontal lobe with additional extension posteriorly into the left paracentral lobule. New contiguous area of acute infarction in the left precentral gyrus and left middle frontal gyrus near the vertex. There is no evidence of an acute intracranial hemorrhage. No midline shift is seen. Small acute infarct in the right sensorimotor cortex near the vertex as well. Further evolving smaller right SHILPI territorial infarction involving the medial right superior frontal gyrus. Additional areas of infarction in the corpus callosum and cingulate gyri, left greater than right side. Acute infarct in the anterior left basal ganglia as well, as seen on MR imaging. Chronic infarct again visible in the superior cerebellar vermis and medial right cerebellar sphere. No extra-axial fluid collections are identified. There is no abnormal enhancement. No evidence of hydrocephalus. The osseous structures and soft tissues are normal. The mastoid air cells and visualized portions of the paranasal sinuses are well aerated. CTA neck: Dilatation of the ascending thoracic aorta again noted. Stable wall calcifications at the origins of the great vessels. The common carotid arteries are widely patent. The carotid bifurcations are normal. The cervical internal carotid arteries are normal. The vertebral arteries opacify normally and are of normal caliber. Multinodular thyroid gland again noted. Left shoulder prosthesis with beam hardening artifacts. The imaged portions of the lungs are clear. CTA head: The intradural vertebral arteries and basilar artery are normal. Stable mild to moderate stenosis in the P2 segment of the right posterior cerebral artery. The left BOBBIN HAULER is patent. Significant stenosis in the left carotid terminus to the origin of the left M1 segment. The remainder of the MCA vasculature is patent bilaterally. The right internal carotid artery is otherwise normal in caliber. Stable focal severe stenosis in the supraclinoid right internal carotid artery. Unchanged high-grade stenosis in the distal supraclinoid left internal carotid artery to the level of the carotid terminus with unchanged occlusion in the proximal A1 segment of the left SHILPI. Nonvisualization of the right A1 segment, as on prior imaging. Contrast opacification visible in the distal left A1 segment and in the A2 branches, though avidity of contrast opacification remains fairly diminutive the right A2 branch. Stable steno-occlusive changes in the distal right A2 and A3 branches. Significant stenoses in the left A3 branch with suspected occlusion in the callosomarginal branch. Procedure Note Rashard Keys MD - 02/17/2025 EXAMINATION: CTA OF THE HEAD AND NECK WITH CONTRAST CT OF THE HEAD WITHOUT CONTRAST CLINICAL INFORMATION: Status post balloon angioplasty. Patient now with worsening mentalstatus. COMPARISON: CT imaging from 02/14/2025. Brain MRI dated 02/14/2025. TECHNIQUE: Noncontrast imaging of the head initially acquired. Test bolus sequencesfollowed by intravenous administration 85 mL of ISOVUE-370. Helicalimaging was performed in the axial plane from the mediastinum to the skullvertex. Delayed postcontrast imaging of the head was also performed. Thedata was processed at the technologist development's workstation for generation ofMIP sequences. Three-dimensional volume rendered reformatted images werealso generated at an offline 3-D workstation. Stenoses are assessed inaccordance with NASCET criteria unless otherwise indicated. This CT examination was performed using dose optimization techniques asappropriate, variously including the following: *Automated exposure control *Adjustment of mA and/or kV according to patient size (this includestechniques or standardized protocols for targeted exams where dose ismatched to indication/reason for exam; i.e. extremities or head) *Use of iterative reconstruction technique FINDINGS: CT head: Further developed and evolved left SHILPI territorial infarction involvingthe superior left frontal lobe with additional extension posteriorly intothe left paracentral lobule. New contiguous area of acute infarction inthe left precentral gyrus and left middle frontal gyrus near the vertex.There is no evidence of an acute intracranial hemorrhage. No midline shift is seen. Small acute infarct in the right sensorimotorcortex near the vertex as well. Further evolving smaller right ACAterritorial infarction involving the medial right superior frontal gyrus.Additional areas of infarction in the corpus callosum and cingulate gyri,left greater than right side. Acute infarct in the anterior left basalganglia as well, as seen on MR imaging. Chronic infarct again visible in the superior cerebellar vermis and medialright cerebellar sphere. No extra-axial fluid collections are identified.There is no abnormal enhancement. No evidence of hydrocephalus. Theosseous structures and soft tissues are normal. The mastoid air cells andvisualized portions of the paranasal sinuses are well aerated. CTA neck: Dilatation of the ascending thoracic aorta again noted. Stable wallcalcifications at the origins of the great vessels. The common carotidarteries are widely patent. The carotid bifurcations are normal. Thecervical internal carotid arteries are normal. The vertebral arteriesopacify normally and are of normal caliber. Multinodular thyroid gland again noted. Left shoulder prosthesis withbeam hardening artifacts. The imaged portions of the lungs are clear. CTA head: The intradural vertebral arteries and basilar artery are normal. Stablemild to moderate stenosis in the P2 segment of the right posteriorcerebral artery. The left BOBBIN HAULER is patent. Significant stenosis in theleft carotid terminus to the origin of the left M1 segment. The remainderof the MCA vasculature is patent bilaterally. The right internal carotid artery is otherwise normal in caliber. Stablefocal severe stenosis in the supraclinoid right internal carotid artery.Unchanged high-grade stenosis in the distal supraclinoid left internalcarotid artery to the level of the carotid terminus with unchangedocclusion in the proximal A1 segment of the left SHILPI. Nonvisualization of the right A1 segment, as on prior imaging. Contrastopacification visible in the distal left A1 segment and in the [id number], though avidity of contrast opacification remains fairlydiminutive the right A2 branch. Stable steno-occlusive changes in thedistal right A2 and A3 branches. Significant stenoses in the left U0dpgibc with suspected occlusion in the callosomarginal branch. IMPRESSION: Evolving left SHILPI territorial infarction without hemorrhagictransformation. New contiguous area of acute infarction in the leftprecentral gyrus and left middle frontal gyrus. Evolving acute tosubacute infarct in the anterior left basal ganglia. Small acute infarct in the right sensorimotor cortex at the vertex.Evolving smaller right SHILPI territorial infarction involving the rightsuperior frontal gyrus medially. Acute infarcts again visible in thecorpus callosum and cingulate gyri. Stable steno-occlusive disease in the SHILPI vasculature and at the leftcarotid terminus. No hemodynamically significant stenosis or occlusion inthe cervical vasculature. -------- FINAL REPORT -------- Dictated By: Rashard Keys Dictated Date: 02/17/2025 15:35 ET Assigned Physician: Rashard Keys Reviewed and Electronically Signed By: Rashard Keys Signed Date: 02/17/2025 15:57 ET Workstation ID: [id number] Transcribed By: Self Edit Transcribed Date: 02/17/2025 15:35 ET Kenyetta Lassiter MD IM CT PROCEDURES Final Resul t * IR Intracranial Angioplasty Perc (02/16/2025 5:33 PM EDT) Anatomical Region Laterality Modality N/A Interventional R adiology 03/27/2025 11:1 5 PM EST Impressions 03/28/2025 8:05 AM EST 1.Severe left supraclinoid internal carotid artery narrowing consistent with intracranial atheromatous carotid disease 2.Balloon angioplasty of the left terminal internal carotid artery with improved flow through the left MCA.. -------- FINAL REPORT -------- Dictated By: Howard Oscar Dictated Date: 03/27/2025 23:15 ET Assigned Physician: Howard Oscar Reviewed and Electronically Signed By: Howard Oscar Signed Date: 03/28/2025 08:05 ET Workstation ID: [id number] Transcribed By: Self Edit Transcribed Date: 03/28/2025 06:30 ET Narrative 03/28/2025 8:05 AM EST Patient Name: TIM WHYTE MR#: [id number] Exam Description: IR INTRACRANIAL ANGIOPLASTY PERC Exam Date/Time: 02/16/2025 2:42 PM PROCEDURE: 1. Cervicocerebral catheter angiography 2. Balloon angioplasty of left ICA stenosis LOZENGE MAKER HELPER(S): Howard Guillory MD INDICATION: Symptomatic intracranial atherosclerotic disease COMPARISON: CTA head from 02/14/2025 FLUOROSCOPY TIME: 43.1 minutes. RADIATION DOSE: Dose area product: [id number] uGym2, air kerma: 1146 mGy CONTRAST USE: 100 mL Isovue 300. SEDATION: General anesthesia VESSELS CATHETERIZED/PROJECTIONS: Right internal carotid artery: PA and lateral DSA views of the head Left internal carotid artery: PA and lateral DSA views of the head Left internal carotid artery: follow up angiogram Left vertebral artery: PA and lateral DSA views of the upper neck and head EQUIPMENT: 5 Fr Moreno-2 Benchmark guide catheter Synchro 2 soft microwire SL 10 microcatheter Zoom 014 exchange length microwire Deanne 5 Fr catheter Scepter balloons 0.035 Glidewire Angioseal closure device TECHNIQUE: The risks, benefits, and alternatives to the procedure and possible intervention were discussed. Written informed consent was obtained. The patient was placed supine on the angiography table. A timeout was performed. The groins were prepped and draped in standard sterile fashion. General endotracheal anesthesia was induced.. Access to the right femoral artery was obtained using standard micropuncture technique under live sonographic guidance. Patency of the common femoral artery and its branches was confirmed with ultrasound before puncture. An image of the puncture site was stored. A 6 Latvian sheath was placed and attached to continuous heparinized flush. A right femoral arteriogram was performed through the sheath. A 5 Fr glide catheter was utilized to selectively catheterize the vessels listed above. Angiography was performed from each selectively catheterize vessel as listed above with findings described below. Following the diagnostic part, a 6-Latvian benchmark guide catheter was then introduced through the groin sheath to select the left internal carotid artery over 5-Latvian Moreno selection catheter and 035 Glidewire. The diagnostic catheter and 035 Glidewire was removed before inducing 5-Latvian Valeria catheter over SL 10 microcatheter and Synchro 2 soft microwire. Once the microcatheter was advanced beyond the stenosis in the MCA, the microwire was removed and an exchange length microwire was placed through the microcatheter before removing the microcatheter as well. No over this exchange length wire, scepter balloons were advanced to perform angioplasty. This led to some improvement in the distal internal carotid artery caliber leading into the MCA but the lumen that was providing flow to the SHILPI remained stenotic. Passing the microwire into the SHILPI was met with difficulty and this was not achievable. Post angioplasty, the left SHILPI flow appeared even further impeded. The guide catheter was removed. An Angio-Seal closure device was placed. Hemostasis was achieved. A sterile dressing was applied. The patient was extubated. The patient was transported to ICU in stable condition. There were no immediate complications. FINDINGS: Right common carotid artery : The upper cervical, petrous, cavernous, and distal ICA are unremarkable. The ophthalmic artery and MCA are unremarkable. The right A1 segment appears absent. Anterior choroidal artery is unremarkable. Visualized ECA branches are unremarkable The capillary phase and venous phase are within normal limits. Left vertebral artery : The visualized cervical vertebral artery is patent without evidence of high- grade narrowing or dissection. The posterior inferior cerebellar artery is unremarkable. The basilar artery, superior cerebellar arteries, anterior inferior cerebellar arteries, posterior cerebral arteries are patent. The visualized capillary and venous phases are unremarkable. Left internal carotid artery : The left supraclinoid internal carotid artery shows severe narrowing in the communicating segment with near occlusion of the proximal left SHILPI and critical narrowing of the proximal left MCA.. The anterior choroidal and posterior communicating arteries are unremarkable. The anterior communicating artery is is not well seen. The capillary and venous phases appear unremarkable as above. Procedure Note Howard Oscar MD - 03/28/2025 Patient Name: TIM WHYTE MR#: [id number] Exam Description: IR INTRACRANIAL ANGIOPLASTY PERC Exam Date/Time:02/16/2025 2:42 PM PROCEDURE: 1. Cervicocerebral catheter angiography 2. Balloon angioplasty of left ICA stenosis LOZENGE MAKER HELPER(S): Howard Guillory MD INDICATION: Symptomatic intracranial atherosclerotic disease COMPARISON: CTA head from 02/14/2025 FLUOROSCOPY TIME: 43.1 minutes. RADIATION DOSE: Dose area product: [id number] uGym2, air kerma: 1146 mGy CONTRAST USE: 100 mL Isovue 300. SEDATION: General anesthesia VESSELS CATHETERIZED/PROJECTIONS: Right internal carotid artery: PA and lateral DSA views of the head Left internal carotid artery: PA and lateral DSA views of the head Left internal carotid artery: follow up angiogram Left vertebral artery: PA and lateral DSA views of the upper neck andhead EQUIPMENT: 5 Fr Moreno-2 Benchmark guide catheter Synchro 2 soft microwire SL 10 microcatheter Zoom 014 exchange length microwire Deanne 5 Fr catheter Scepter balloons 0.035 Glidewire Angioseal closure device TECHNIQUE: The risks, benefits, and alternatives to the procedure and possibleintervention were discussed. Written informed consent was obtained. Thepatient was placed supine on the angiography table. A timeout wasperformed. The groins were prepped and draped in standard sterile fashion.General endotracheal anesthesia was induced.. Access to the right femoralartery was obtained using standard micropuncture technique under livesonographic guidance. Patency of the common femoral artery and itsbranches was confirmed with ultrasound before puncture. An image of thepuncture site was stored. A 6 Latvian sheath was placed and attached tocontinuous heparinized flush. A right femoral arteriogram was performedthrough the sheath. A 5 Fr glide catheter was utilized to selectively catheterize the vesselslisted above. Angiography was performed from each selectively catheterizevessel as listed above with findings described below. Following the diagnostic part, a 6-Latvian benchmark guide catheter wasthen introduced through the groin sheath to select the left internalcarotid artery over 5-Latvian Moreno selection catheter and 035 Glidewire.The diagnostic catheter and 035 Glidewire was removed before inducing5-Latvian Valeria catheter over SL 10 microcatheter and Synchro 2 softmicrowire. Once the microcatheter was advanced beyond the stenosis in theMCA, the microwire was removed and an exchange length microwire was placedthrough the microcatheter before removing the microcatheter as well. Noover this exchange length wire, scepter balloons were advanced to performangioplasty. This led to some improvement in the distal internal carotidartery caliber leading into the MCA but the lumen that was providing flowto the SHILPI remained stenotic. Passing the microwire into the SHILPI was metwith difficulty and this was not achievable. Post angioplasty, the leftACA flow appeared even further impeded. The guide catheter was removed. An Angio-Seal closure device was placed.Hemostasis was achieved. A sterile dressing was applied. The patient wasextubated. The patient was transported to ICU in stable condition. Therewere no immediate complications. FINDINGS: Right common carotid artery : The upper cervical, petrous, cavernous, and distal ICA are unremarkable.The ophthalmic artery and MCA are unremarkable. The right A1 segmentappears absent. Anterior choroidal artery is unremarkable. Visualized ECAbranches are unremarkable The capillary phase and venous phase are withinnormal limits. Left vertebral artery : The visualized cervical vertebral artery is patent without evidence ofhigh-grade narrowing or dissection. The posterior inferior cerebellarartery is unremarkable. The basilar artery, superior cerebellar arteries,anterior inferior cerebellar arteries, posterior cerebral arteries arepatent. The visualized capillary and venous phases are unremarkable. Left internal carotid artery : The left supraclinoid internal carotid artery shows severe narrowing inthe communicating segment with near occlusion of the proximal left SHILPI andcritical narrowing of the proximal left MCA.. The anterior choroidal andposterior communicating arteries are unremarkable. The anteriorcommunicating artery is is not well seen. The capillary and venous phasesappear unremarkable as above. IMPRESSION: 1.Severe left supraclinoid internal carotid artery narrowing consistentwith intracranial atheromatous carotid disease 2.Balloon angioplasty of the left terminal internal carotid artery withimproved flow through the left MCA.. -------- FINAL REPORT -------- Dictated By: Howard Oscar Dictated Date: 03/27/2025 23:15 ET Assigned Physician: Howard Oscar Reviewed and Electronically Signed By: Howard Oscar Signed Date: 03/28/2025 08:05 ET Workstation ID: [id number] Transcribed By: Self Edit Transcribed Date: 03/28/2025 06:30 ET us Con Sewell MD IMG IR PROCEDURES Final Result * TH AN ENDOTRACHEAL(NO CHARGE) (02/16/2025 3:29 PM EDT) Narrative Paulo Sharpe CRNA - 02/16/2025 3:29 PM EDT Paulo Sharpe CRNA 02/16/2025 3:31 PM General Information and Staff Patient location during procedure: OR Anesthesiologist: Lv Rueda MD Resident/TOOL INSPECTOR: Paulo Sharpe CRNA Performed: resident/TOOL INSPECTOR/CAA Performed by: Paulo Sharpe CRNA Authorized by: Lv Rueda MD Intubation Urgency: elective Final Airway Details Successful airway: ETT Cuffed: yes Successful intubation technique: direct laryngoscopy Facilitating devices/methods: intubating stylet Endotracheal tube insertion site: oral Blade: Huber Cormack-Lehane Classification: grade IIa - partial view of glottis Placement verified by: chest auscultation and capnometry Number of attempts at approach: 1Final airway type: endotracheal airway Indications and Patient Condition Indications for airway management: anesthesia Spontaneous Ventilation: absent Preoxygenated: yes Patient position: sniffing MILS maintained throughout Mask difficulty assessment: 2 - vent by mask + OA or adjuvant +/- NMBA Lv Rueda MD ANESTHESIA ORDERABLES Final Res ult * Continuous EEG (02/16/2025 1:12 PM EDT) Narrative KIM - 03/02/2025 6:21 PM EDT Tere Kowalski MD 03/02/2025 6:26 PM Continuous Electroencephalography (EEG) Report Recording Information: Diagnostic Recording Time: 03:43:10 (223 minutes) Recording 1: Start Time: Mar 01, 2025 21:53 PM End Time: Mar 02, 2025 01:36 AM Recording Technique: This EEG was obtained using a 10 lead, 8 channel system positioned circumferentially without any parasagittal coverage (rapid EEG). Computer selected EEG is reviewed as well as background features and all clinically significant events. Clarity algorithm utilized and implemented to provide analysis of underlying activity and seizure detection used to facilitate reading. ICD-10 Code BC10K45 Recording Techniques Description of procedure: This is a Rapid EEG acquired with a [employer] EEG machine with 10 lead, 8 channel system positioned circumferentially, spaced according to the lateral chains of the 10-20 international system of EEG electrode placements. Vertex and paracentral recording electrodes are not included. The entire segments of the EEG were scanned by the attending physician. The [employer] System used the Clarity algorithm to analyze brain activity and detect seizures/status epilepticus to support reading of the EEG. Video recorded: No Clinical Information History: Tim Whyte is a 79 y.o. 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 There is no posterior dominant rhythm. There is no anterior or posterior dominant rhythm. The background consists of delta and theta frequencies with rare generalized periodic sharp waves. These GPDs were at a frequency less than 0.5 Hz and did not evolve or have a clinical correlate. Sleep: There are state changes. Stage 1 sleep seen, but state 2 sleep with sleep spindles not recorded. Activation Procedures: Not performed given mental status Paroxysmal Activity: None. Focal slowing: None Special Findings: None Classifications 1. Generalized periodic discharges (GPDs), rare 2. Background slowing, left greater than right hemisphere Clinical Impression This is an abnormal continuous EEG record: The background EEG is indicative of left greater than right hemispheric cerebral dysfunction. - GPDs can be seen in a variety of clinical settings, including but not limited to metabolic disorders, medication toxicity, and are at times are associated with seizures. No clinical or electrographic seizures are seen. CC Hannah Escoto MD Veeresh Kumar N. Shivamurthy, MD Epileptologist/ staff neurologist [facility] [1] Current Facility-Administered Medications: acetaminophen (TYLENOL) tablet 500 mg, 500 mg, oral, q6h PRN, John Walker MD, 500 mg at 02/20/25 2030 aspirin chewable tablet 81 mg, 81 mg, oral, Daily, John Walker MD, 81 mg at 03/02/25 0823 atorvastatin (LIPITOR) tablet 80 mg, 80 mg, oral, Daily, John Walker MD, 80 mg at 03/02/25 08 bisacodyL (DULCOLAX) EC tablet 10 mg, 10 mg, oral, Daily PRN, John Walker MD, 10 mg at 02/25/25 1645 bisacodyL (DULCOLAX) suppository 10 mg, 10 mg, rectal, Daily PRN, John Walker MD, 10 mg at 02/26/25 0953 dextrose (D50W) 50% injection 12.5 g, 12.5 g, intravenous, q15 min PRN, John Walker MD dextrose (D50W) 50% injection 25 g, 25 g, intravenous, q15 min PRN, John Walker MD dextrose 15 gram/60 mL oral solution 15 g, 15 g, oral, q15 min PRN, John Walker MD dextrose 15 gram/60 mL oral solution 15 g, 15 g, oral, q15 min PRN, John Walker MD dextrose 15 gram/60 mL oral solution 30 g, 30 g, oral, q15 min PRN, John Walker MD glucagon HCL injection 1 mg, 1 mg, intramuscular, Once PRN, John Walker MD insulin glargine (LANTUS) injection 30 Units, 30 Units, subcutaneous, Nightly, Kirstin Almaguer MD insulin lispro injection 12 Units, 12 Units, subcutaneous, Daily with breakfast, John Walker MD insulin lispro injection 12 Units, 12 Units, subcutaneous, Daily with lunch, John Walker MD, 12 Units at 02/28/25 1237 insulin lispro injection 16 Units, 16 Units, subcutaneous, Daily with dinner, John Walker MD, 16 Units at 03/01/25 1724 insulin lispro injection 2-12 Units, 2-12 Units, subcutaneous, Before meals & nightly, John Walker MD, 6 Units at 03/01/25 205 levETIRAcetam (KEPPRA) injection 500 mg, 500 mg, intravenous, BID, John Walker MD, 500 mg at 03/02/25 0823 magnesium oxide (MAG-OX) tablet 200 mg, 200 mg, oral, Daily, John Walker MD, 200 mg at 03/02/25 0823 metoprolol tartrate (LOPRESSOR) injection 5 mg, 5 mg, intravenous, q6h, John Walker MD, 5 mg at 03/02/25 1711 [Held by provider] metoprolol tartrate (LOPRESSOR) tablet 50 mg, 50 mg, oral, BID, John Walker MD, 50 mg at 03/01/25 0909 [Held by provider] pantoprazole (PROTONIX) EC tablet 40 mg, 40 mg, oral, q AM AC, John Walker MD, 40 mg at 02/25/25 0547 polyethylene glycol (MIRALAX) packet 17 g, 17 g, oral, Nightly, John Walker MD, 17 g at 02/28/25 2117 simethicone (MYLICON) chewable tablet 80 mg, 80 mg, oral, 4x daily PRN, John Walker MD, 80 mg at 02/25/25 1645 [COMPLETED] Insert peripheral IV, , , Once AND [COMPLETED] Saline lock IV, , , Once AND sodium chloride 0.9 % flush 10 mL, 10 mL, intravenous, PRN, John Walker MD us Miles Ortega MD NEUROLOGY ORDERABLES Lola l Result [facility] * Continuous EEG (02/16/2025 9:53 AM EDT) Narrative [facility] - 02/16/2025 9:53 AM EDT Tere Kowalski MD 02/16/2025 5:59 PM Long-term Monitoring/ Continuous Video Electroencephalography (LTM) Report Study start date, time: 02/15/2025; 11:27 AM Study end date, time: 02/15/2025; 11:17 PM Total duration: 11 hours and 50 minutes Clinical Information History: Tim Whyte is a 79 y.o. 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 NIHSS 14. Not a thrombectomy or thrombolytic candidate. Admitted for seizure and stroke workup. Sedation: Antiseizure medication: Medications: Current Facility-Administered Medications: acetaminophen (TYLENOL) tablet 500 mg, 500 mg, oral, q6h PRN, Cullen Thomas DO, 500 mg at 02/15/25 0840 atorvastatin (LIPITOR) tablet 80 mg, 80 mg, oral, Daily, Marcy Pearce MD, 80 mg at 02/16/25 0822 bisacodyL (DULCOLAX) EC tablet 10 mg, 10 mg, oral, Daily PRN, Marcy Pearce MD dextrose (D50W) 50% injection 12.5 g, 12.5 g, intravenous, q15 min PRN, Marcy Pearce MD dextrose (D50W) 50% injection 25 g, 25 g, intravenous, q15 min PRN, Marcy Pearce MD dextrose 15 gram/60 mL oral solution 15 g, 15 g, oral, q15 min PRN, Marcy Pearce MD dextrose 15 gram/60 mL oral solution 30 g, 30 g, oral, q15 min PRN, Marcy Pearce MD glucagon HCL injection 1 mg, 1 mg, intramuscular, Once PRN, Marcy Pearce MD insulin lispro injection 1-6 Units, 1-6 Units, subcutaneous, Before meals & nightly, Marcy Pearce MD, 2 Units at 02/16/25 1230 levETIRAcetam (KEPPRA) tablet 500 mg, 500 mg, oral, BID, Marcy Pearce MD, 500 mg at 02/16/25 0822 pantoprazole (PROTONIX) EC tablet 40 mg, 40 mg, oral, q AM AC, Marcy Pearce MD, 40 mg at 02/15/25 0600 Patient is on: warfarin (COUMADIN) one time dosing, 1 EA, Not Applicable, Daily, Marcy Pearce MD polyethylene glycol (MIRALAX) packet 17 g, 17 g, oral, Nightly, Marcy Pearce MD, 17 g at 02/15/252036 [COMPLETED] Insert peripheral IV, , , Once AND [COMPLETED] Saline lock IV, , , Once AND sodium chloride 0.9 % flush 10 mL, 10 mL, intravenous, PRN, Osei Guzman MD warfarin (COUMADIN) tablet 4 mg, 4 mg, oral, Once, Cullen Thomas, Recording Techniques Instrumentation: A digital EEG was performed using the standard international 10-20 electrode placement and single lead EKG electrode with a sampling rate of 200 samples per second/per channel, at impedance levels less than 10 K Ohms. Montages: Standard 10-20 system montages Type of Study: Long-term video EEG monitoring Conditions of Recording: Awake - drowsy - sleep Results Background Symmetry: Asymmetric (>=50% of epoch) - Left hemisphere slower Left hemisphere predominant background frequency - Delta Left hemisphere superimposed background frequency: theta Right hemisphere predominant background frequency alpha/ beta/ theta Right hemisphere superimposed background frequency: beta Voltage - left hemisphere: Normal (most activity 20+ V) Voltage - right hemisphere: Normal (most activity 20+ V) Variability: Yes Reactivity to stimulation: Yes Continuity: Continuous AP Gradient: Absent Focal slowing: Yes Type: Hemispheric Hemisphere: left EKG results: Normal sinus rhythm Sleep: During drowsiness, the alpha rhythm attenuated and diffuse background slowing appeared. Stage 2 sleep architecture was not seen Epileptiform discharges: None Classification of the findings: 1. Intermittent polymorphic slowing, delta and theta, left, frontotemporal 2. Mild background slowing, theta Impression This is an abnormal continuous EEG due to the presence of Focal slowing over the left hemisphere, consistent with a superimposed area of focal structural dysfunction in this region Mild diffuse slowing of the background, a nonspecific finding consistent with diffuse neuronal dysfunction. No juan carlos epileptiform discharges or seizures seen Patient pulled off electrodes last night around 11:20 PM Tere Patten MD Epileptologist/ Staff Neurologist [facility] Hannah Escoto MD Veeresh Kumar N. Shivamurthy, MD Epileptologist/ staff neurologist [facility] us Miles Ortega MD NEUROLOGY ORDERABLES Lola l Result KIM * Continuous EEG (02/16/2025 9:09 AM EDT) Narrative NATUS - 02/16/2025 9:53 AM EDT Tere Kowalski MD 02/16/2025 5:59 PM Long-term Monitoring/ Continuous Video Electroencephalography (LTM) Report Study start date, time: 02/15/2025; 11:27 AM Study end date, time: 02/15/2025; 11:17 PM Total duration: 11 hours and 50 minutes Clinical Information History: Tim Whyte is a 79 y.o. female with hypertension, diabetes, CHF, mechanical aortic valve on Coumadin, thyroid nodules, generalized tonic-clonic seizure on [facility], b/l SHILPI stroke 12/2024 with residual right-sided weakness, additional b/l SHILPI stroke 02/02/25, intracranial atherosclerosis (left A1, M1 and distal ICA) who was transferred from [facility] for higher level of care and concern for new stroke in the setting of intracranial arterial occlusive disease which appears slightly worsened from 01/21/2025. NIHSS 14. Not a thrombectomy or thrombolytic candidate. Admitted for seizure and stroke workup. Sedation: Antiseizure medication: Medications: Current Facility-Administered Medications: acetaminophen (TYLENOL) tablet 500 mg, 500 mg, oral, q6h PRN, Cullen Thomas DO, 500 mg at 02/15/25 0840 atorvastatin (LIPITOR) tablet 80 mg, 80 mg, oral, Daily, Marcy Pearce MD, 80 mg at 02/16/25 0822 bisacodyL (DULCOLAX) EC tablet 10 mg, 10 mg, oral, Daily PRN, Marcy Pearce MD dextrose (D50W) 50% injection 12.5 g, 12.5 g, intravenous, q15 min PRN, Marcy Pearce MD dextrose (D50W) 50% injection 25 g, 25 g, intravenous, q15 min PRN, Marcy Pearce MD dextrose 15 gram/60 mL oral solution 15 g, 15 g, oral, q15 min PRN, Marcy Pearce MD dextrose 15 gram/60 mL oral solution 30 g, 30 g, oral, q15 min PRN, Marcy Pearce MD glucagon HCL injection 1 mg, 1 mg, intramuscular, Once PRN, Marcy Pearce MD insulin lispro injection 1-6 Units, 1-6 Units, subcutaneous, Before meals & nightly, Marcy Pearce MD, 2 Units at 02/16/25 1230 levETIRAcetam (KEPPRA) tablet 500 mg, 500 mg, oral, BID, Marcy Pearce MD, 500 mg at 02/16/25 0822 pantoprazole (PROTONIX) EC tablet 40 mg, 40 mg, oral, q AM AC, Marcy Pearce MD, 40 mg at 02/15/25 0600 Patient is on: warfarin (COUMADIN) one time dosing, 1 EA, Not Applicable, Daily, Marcy Pearce MD polyethylene glycol (MIRALAX) packet 17 g, 17 g, oral, Nightly, Marcy Pearce MD, 17 g at 02/15/252036 [COMPLETED] Insert peripheral IV, , , Once AND [COMPLETED] Saline lock IV, , , Once AND sodium chloride 0.9 % flush 10 mL, 10 mL, intravenous, PRN, Osei Guzman MD warfarin (COUMADIN) tablet 4 mg, 4 mg, oral, Once, Cullen Thomas DO Recording Techniques Instrumentation: A digital EEG was performed using the standard international 10-20 electrode placement and single lead EKG electrode with a sampling rate of 200 samples per second/per channel, at impedance levels less than 10 K Ohms. Montages: Standard 10-20 system montages Type of Study: Long-term video EEG monitoring Conditions of Recording: Awake - drowsy - sleep Results Background Symmetry: Asymmetric (>=50% of epoch) - Left hemisphere slower Left hemisphere predominant background frequency - Delta Left hemisphere superimposed background frequency: theta Right hemisphere predominant background frequency alpha/ beta/ theta Right hemisphere superimposed background frequency: beta Voltage - left hemisphere: Normal (most activity 20+ V) Voltage - right hemisphere: Normal (most activity 20+ V) Variability: Yes Reactivity to stimulation: Yes Continuity: Continuous AP Gradient: Absent Focal slowing: Yes Type: Hemispheric Hemisphere: left EKG results: Normal sinus rhythm Sleep: During drowsiness, the alpha rhythm attenuated and diffuse background slowing appeared. Stage 2 sleep architecture was not seen Epileptiform discharges: None Classification of the findings: 1. Intermittent polymorphic slowing, delta and theta, left, frontotemporal 2. Mild background slowing, theta Impression This is an abnormal continuous EEG due to the presence of Focal slowing over the left hemisphere, consistent with a superimposed area of focal structural dysfunction in this region Mild diffuse slowing of the background, a nonspecific finding consistent with diffuse neuronal dysfunction. No juan carlos epileptiform discharges or seizures seen Patient pulled off electrodes last night around 11:20 PM Tere Patten MD Epileptologist/ Staff Neurologist [facility] Hannah Cervantes MD Veeresh Kumar N. Shivamurthy, MD Epileptologist/ staff neurologist [facility] us Miles Ortega MD NEUROLOGY ORDERABLES Lola appiah Result NATUS * MR Brain wo Contrast (02/14/2025 7:16 PM EDT) Only the most recent of2 resultswithin the time period is included. Anatomical Region Laterality Modality Head and Neck Magnetic Resonan ce 02/14/2025 11:1 3 PM EDT Impressions 02/14/2025 11:17 PM EDT 1. Similar acute infarcts in the left frontal lobe along the SHILPI territory. No hemorrhagic conversion or midline shift. -------- FINAL REPORT -------- Dictated By: Shaneka Jackson Dictated Date: 02/14/2025 23:13 ET Assigned Physician: Shaneka Jackson Reviewed and Electronically Signed By: Shaneka Jackson Signed Date: 02/14/2025 23:17 ET Workstation ID: [id number] Transcribed By: Self Edit Transcribed Date: 02/14/2025 23:14 ET Narrative 02/14/2025 11:17 PM EDT EXAMINATION: MRI brain without IV contrast CLINICAL INDICATION: Stroke, follow up COMPARISON: Same day CT TECHNIQUE: Multiplanar, multi-sequence MRI of brain was performed without IV contrast. FINDINGS: Similar acute infarcts in the left frontal lobe along the SHILPI territory. No hemorrhagic conversion or midline shift. The parenchymal signal intensity is within normal limits for patient age. No hydrocephalus. No abnormal extra-axial fluid collections. Patent basal cisterns and foramen magnum. The calvarium appears intact. No air-fluid levels in the paranasal sinuses. The mastoid air cells are clear. Preserved major arterial flow voids indicating gross patency. Procedure Note Shaneka Jackson MD - 02/14/2025 EXAMINATION: MRI brain without IV contrast CLINICAL INDICATION: Stroke, follow up COMPARISON: Same day CT TECHNIQUE: Multiplanar, multi-sequence MRI of brain was performed without IVcontrast. FINDINGS: Similar acute infarcts in the left frontal lobe along the SHILPI territory.No hemorrhagic conversion or midline shift. The parenchymal signal intensity is within normal limits for patientage. No hydrocephalus. No abnormal extra-axial fluid collections. Patent basal cisterns and foramen magnum. The calvarium appears intact. No air-fluid levels in the paranasal sinuses. The mastoid air cells areclear. Preserved major arterial flow voids indicating gross patency. IMPRESSION: 1. Similar acute infarcts in the left frontal lobe along the ACAterritory. No hemorrhagic conversion or midline shift. -------- FINAL REPORT -------- Dictated By: Shaneka Jackson Dictated Date: 02/14/2025 23:13 ET Assigned Physician: Shaneka Jackson Reviewed and Electronically Signed By: Shaneka Jackson Signed Date: 02/14/2025 23:17 ET Workstation ID: [id number] Transcribed By: Self Edit Transcribed Date: 02/14/2025 23:14 ET Miles Ortega MD [facility] MRI PROCEDURES Final Result * Vitamin B12 and folate (02/14/2025 12:14 PM EDT) Vitamin B-12 248 180 - 914 pcg/mL LAB CHEMISTRY METHOD 02/14/2025 1:40 PM EDT [facility] Folate 13.2 >=3.0 ng/ml LAB CHEMISTRY METHOD 02/14/2025 1:40 PM EDT [facility] Blood Venous blood specimen / Unknown Venipuncture / Unknown 02/14/2025 12:14 PM EDT 02/14/2025 12:38 PM EDT us Miles Ortega MD LAB BLOOD ORDERABLES Lola l Result Performing Organization Address City/[facility]/ZIP Co de Phone Number [facility] [address] [place] [address], [place] [phone] * Lipid panel with reflex to direct LDL (02/14/2025 12:14 PM EDT) Cholesterol 107 0 - 200 mg/dL LAB CHEMISTRY METHOD 02/14/2025 4:17 PM EDT [facility] Triglycerides 88 <150 mg/dL LAB CHEMISTRY METHOD 02/14/2025 4:17 PM EDT [facility] HDL 34 33 - 92 mg/dL LAB CHEMISTRY METHOD 02/14/2025 4:17 PM EDT [facility] LDL Calculated 55 50 - 130 mg/dL LAB CHEMISTRY METHOD 02/14/2025 4:17 PM EDT [facility] VLDL Cholesterol Zain 17.6 mg/dL LAB CHEMISTRY METHOD 02/14/2025 4:17 PM EDT [facility] Comment:No established refer ence range. Blood Venous blood specimen / Unknown Venipuncture / Unknown 02/14/2025 12:14 PM EDT 02/14/2025 12:38 PM EDT us Miles Ortega MD LAB BLOOD ORDERABLES Lola l Result Performing Organization Address City/[facility]/ZIP Co de Phone Number [facility] [address] [place] [address], [place] [phone] * (ABNORMAL) Hemoglobin A1c (02/14/2025 12:14 PM EDT) Hemoglobin A1C 8.3(H) <5.7 % LAB CHEMISTRY METHOD 02/14/2025 3:27 PM EDT [facility] Mean Bld Glu Estim. 192 mg/dL LAB CHEMISTRY METHOD 02/14/2025 3:27 PM EDT [facility] Blood Venous blood specimen / Unknown Venipuncture / Unknown 02/14/2025 12:14 PM EDT 02/14/2025 12:38 PM EDT Narrative [facility] - 02/14/2025 3:27 PM EDT ADA Guidelines: Increased risk Diabetes Mellitus A1C 5.7 - 6.4% and Fasting Blood Glucose 100 - 125 mg/dl Diabetes Mellitus: A1C >6.5% and Fasting Blood Glucose >125 mg/dl Miles Ortega MD LAB BLOOD ORDERABLES Lola l Result [facility] [address] [place] [address], [place] [phone] * CT Cerebral Perfusion w Contrast (02/14/2025 11:26 AM EDT) Anatomical Region Laterality Modality Computed Tomogra phy 02/14/2025 11:5 1 AM EDT Impressions 02/14/2025 11:53 AM EDT Acute infarct in the left SHILPI vascular territory with a volume of 27 mL. Surrounding ischemic penumbra with a mismatch volume of 65 mL. -------- FINAL REPORT -------- Dictated By: Rashard Keys Dictated Date: 02/14/2025 11:51 ET Assigned Physician: Rashard Keys Reviewed and Electronically Signed By: Rashard Keys Signed Date: 02/14/2025 11:53 ET Workstation ID: [id number] Transcribed By: Self Edit Transcribed Date: 02/14/2025 11:51 ET Narrative 02/14/2025 11:53 AM EDT EXAMINATION: CT CEREBRAL PERFUSION WITH CONTRAST CLINICAL INFORMATION: Right-sided weakness.? COMPARISON: Head CT from 02/14/2025. TECHNIQUE: Routine axially acquired multidetector CT cerebral perfusion examination was performed following the intravenous administration of 40 ml of ISOVUE-370. The perfusion data set was then postprocessed on a dedicated off-line workstation under concurrent physician supervision using the RAPID perfusion processing software. The following perfusion maps were then generated and reviewed: Tmax, mean transit time, relative cerebral blood volume, relative cerebral blood flow. This CT examination was performed using dose optimization techniques as appropriate, variously including the following: *Automated exposure control *Adjustment of mA and/or kV according to patient size (this includes techniques or standardized protocols for targeted exams where dose is matched to indication/reason for exam; i.e. extremities or head) *Use of iterative reconstruction technique FINDINGS: Acute infarct in the left SHILPI vascular territory.?? Perfusion parameters as reported by [employer] RAPID software: CBF <30%: 27 ml Tmax >6.0 s: 92 ml Mismatch Volume: 65 ml Mismatch Ratio: 3.4 Procedure Note Rashard Keys MD - 02/14/2025 EXAMINATION: CT CEREBRAL PERFUSION WITH CONTRAST CLINICAL INFORMATION: Right-sided weakness.? COMPARISON: Head CT from 02/14/2025. TECHNIQUE: Routine axially acquired multidetector CT cerebral perfusion examinationwas performed following the intravenous administration of 40 ml ofISOVUE-370. The perfusion data set was then postprocessed on a dedicatedoff-line workstation under concurrent physician supervision using theRAPID perfusion processing software. The following perfusion maps werethen generated and reviewed: Tmax, mean transit time, relative cerebralblood volume, relative cerebral blood flow. This CT examination was performed using dose optimization techniques asappropriate, variously including the following: *Automated exposure control *Adjustment of mA and/or kV according to patient size (this includestechniques or standardized protocols for targeted exams where dose ismatched to indication/reason for exam; i.e. extremities or head) *Use of iterative reconstruction technique FINDINGS: Acute infarct in the left SHILPI vascular territory.?? Perfusion parameters as reported by [employer] RAPID software: CBF <30%: 27 ml Tmax >6.0 s: 92 ml Mismatch Volume: 65 ml Mismatch Ratio: 3.4 IMPRESSION: Acute infarct in the left SHILPI vascular territory with a volume of 27 mL.Surrounding ischemic penumbra with a mismatch volume of 65 mL. -------- FINAL REPORT -------- Dictated By: Rashard Keys Dictated Date: 02/14/2025 11:51 ET Assigned Physician: Rashard Keys Reviewed and Electronically Signed By: Rashard Keys Signed Date: 02/14/2025 11:53 ET Workstation ID: [id number] Transcribed By: Self Edit Transcribed Date: 02/14/2025 11:51 ET us Osei Guzman MD IMG CT PROCEDURES Fi nal Result * [place] [facility] 30-74 MINUTES (02/14/2025 10:34 AM EDT) Osei Garces MD - 02/14/2025 10:34 AM EDT Osei Guzman MD 02/14/2025 12:42 PM Critical Care Performed by: Osei Guzman MD Authorized by: Osei Guzman MD Critical care provider statement: Critical care time (minutes): 78 Total face to face critical care time (minutes): 33 Critical care time was exclusive of: Separately billable procedures and treating other patients and teaching time Critical care was necessary to treat or prevent imminent or life-threatening deterioration of the following conditions: 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 Procalcitonin < 0.50 ng/ml: Procalcitonin levels below 0.50 ng/ml on the first day of ICU admission represent a low risk for progression to severe sepsis and/or septic shock. Concentrations <0.5 ng/mL do not exclude an infection, on account of local ized infections (without systemic signs) which can be associated with such low concentrations, or a systemic infection in its initial stages (<6 hours). Furthermore, increased procalcitonin can occur without infection. PCT concentrations between 0.5 and 2.0 ng/mL should be interpreted taking into account the patient's history. It is recommended to retest PCT within 6-24 hours if any concentrations <2.0 ng/mL are obtained. us Hannah Escoto MD LAB BLOOD ORDERABLES Final Res ult [facility] [address] [place] [address], * [place] [facility] 30-74 MINUTES (02/14/2025 3:48 AM EDT) Hannah Akbar MD - 02/14/2025 3:48 AM EDT Hannah Escoto MD 02/15/2025 7:40 AM Critical Care Performed by: Hannah Escoto MD Authorized by: Hannah Escoto MD Critical care provider statement: Critical care time (minutes): 50 Total face to face critical care time (minutes): 35 Critical care time was exclusive of: Separately billable procedures and treating other patients Critical care was necessary to treat or prevent imminent or life-threatening deterioration of the following conditions: 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 failure or compromise Critical care was time spent personally by me on the following activities: Development of treatment plan with patient or surrogate, discussions with consultants, examination of patient, obtaining history from patient or surrogate, ordering and performing treatments and interventions, ordering and review of laboratory studies, ordering and review of radiographic studies, pulse oximetry, re-evaluation of patient's condition and review of old charts Face to face critical care was time spent personally by me on the following activities: Examination of patient, obtaining history from patient or surrogate, pulse oximetry and re-evaluation of patient's condition I assumed direction of critical care for this patient from another provider in my specialty: no Care discussed with: accepting provider at another facility us Hannah Escoto MD IN CLINIC/BEDSIDE ORDERABLES F inal Result * Levetiracetam level (02/13/2025 3:45 PM EDT) Levetiracetam 23.2 3.0 - 60.0 ug/mL 02/16/2025 8:37 AM EDT [facility] Comment: Steady state trough serum or plasma levels following doses of 1000 to 3000 mg/Day: 3 to 37 ug/mL. The same dosage regimen will typically result in peak levels of 10 to 60 ug/mL, at approximately 1.5 hours post dose. If applicable, any drug confirmation testing reported here was developed and the performance characteristics determined by [facility]. This confirmation testing has not been cleared or approved by the FDA. The laboratory is regulated under CLIA as qualified to perform high-complexity testing. This test is used for patient testing purposes. It should not be regarded as investigational or for research. Test performed at [facility], [address], [place] [address] Shell Jean MD, PhD - [employer] Estimator Blood Venous blood specimen / Unknown Venipuncture / Unknown 02/13/2025 3:45 PM EDT 02/13/2025 4:00 PM EDT us Anna Wilkins NP LAB BLOOD ORDERABLES Final Result [facility] [address] [place] [address] * Lavender tube (02/13/2025 8:55 AM EDT) Only the most recent of6 resultswithin the time period is included. Extra Tube Hold for add-ons. 02/13/2025 11:01 AM EDT [facility] Comment:Auto resulted. Blood Venous blood specimen / Unknown Venipuncture / Unknown 02/13/2025 8:55 AM EDT 02/13/2025 9:10 AM EDT Ana Trimble DO LAB BLOOD ORDERABLES Lola l Result Performing Organization Address [facility]/ZIP Co de Phone Number [facility] [address] [place] [address], [place] [phone] * Ammonia (02/13/2025 8:50 AM EDT) Only the most recent of2 resultswithin the time period is included. [facility] Ammonia 29 11 - 35 mcmol/L LAB CHEMISTRY METHOD 02/13/2025 9:28 AM EDT [facility] Blood Venous blood specimen / Unknown Venipuncture / Unknown 02/13/2025 8:50 AM EDT 02/13/2025 8:56 AM EDT Anna Wilkins NP LAB BLOOD ORDERABLES Final Result Performing Organization Address [facility]/ZIP Co de Phone Number [facility] [address] [place] [address], [place] [phone] * Respiratory virus panel molecular study (02/12/2025 10:39 AM EDT) [facility] Adenovirus Detection by PCR Not Detected Not Detected LAB MICROBIOLOGY METHOD 02/12/2025 12:05 PM EDT [facility] Influenza A PCR Not Detected Not Detected LAB MICROBIOLOGY METHOD 02/12/2025 12:05 PM EDT [facility] Influenza B PCR Not Detected Not Detected LAB MICROBIOLOGY METHOD 02/12/2025 12:05 PM EDT [facility] Coronavirus 229E Not Detected Not Detected LAB MICROBIOLOGY METHOD 02/12/2025 12:05 PM EDT [facility] Coronavirus HKU1 Not Detected Not Detected LAB MICROBIOLOGY METHOD 02/12/2025 12:05 PM EDT [facility] Coronavirus OC43 Not Detected Not Detected LAB MICROBIOLOGY METHOD 02/12/2025 12:05 PM EDT [facility] Coronavirus NL63 Not Detected Not Detected LAB MICROBIOLOGY METHOD 02/12/2025 12:05 PM EDT [facility] Parainfluenza Virus 1 Not Detected Not Detected LAB MICROBIOLOGY METHOD 02/12/2025 12:05 PM EDT [facility] Parainfluenza Virus 2 Not Detected Not Detected LAB MICROBIOLOGY METHOD 02/12/2025 12:05 PM EDT [facility] Parainfluenza Virus 3 Not Detected Not Detected LAB MICROBIOLOGY METHOD 02/12/2025 12:05 PM EDT [facility] Parainfluenza Virus 4 Not Detected Not Detected LAB MICROBIOLOGY METHOD 02/12/2025 12:05 PM EDT [facility] RSV PCR Not Detected Not Detected LAB MICROBIOLOGY METHOD 02/12/2025 12:05 PM EDT [facility] Human Metapneumovirus A and B Not Detected Not Detected LAB MICROBIOLOGY METHOD 02/12/2025 12:05 PM EDT [facility] Rhinovirus/Entero virus Not Detected Not Detected LAB MICROBIOLOGY METHOD 02/12/2025 12:05 PM EDT [facility] Bordetella pertussis Not Detected Not Detected LAB MICROBIOLOGY METHOD 02/12/2025 12:05 PM EDT [facility] Bordetella parapertussis Not Detected Not Detected LAB MICROBIOLOGY METHOD 02/12/2025 12:05 PM EDT [facility] Mycoplasma pneumo by PCR Not Detected Not Detected LAB MICROBIOLOGY METHOD 02/12/2025 12:05 PM EDT [facility] Chlamydia pneumoniae Not Detected Not Detected LAB MICROBIOLOGY METHOD 02/12/2025 12:05 PM EDT [facility] SARS COV-2 Not Detected Not Detected LAB MICROBIOLOGY METHOD 02/12/2025 12:05 PM EDT [facility] Swab Both anterior nares / Unknown Non-blood Collection / Unknown 02/12/2025 10:39 AM EDT 02/12/2025 10:59 AM EDT Narrative [facility] - 02/12/2025 12:05 PM EDT Testing was performed using the [employer] Respiratory Pathogen PCR Assay. All results must be correlated with the clinical findings. Results should not be used as the sole basis for diagnosis. False Negative results may occur from the presence of sequence variants in the region targeted by the assay or the presence of inhibitors. Results may be affected by concurrent antiviral/antimicrobial therapy or levels of organisms that are below the limit of detection. Anna Wilkins NP LAB MICROBIOLOGY - G ENERAL ORDERABLES Final Result Performing Organization Address City/[facility]/ZIP Co de Phone Number [facility] [address] [place] [address], * SST tube (02/12/2025 6:01 AM EDT) Only the most recent of8 resultswithin the time period is included. Pathologist [facility] Extra Tube Hold for add-ons. 02/12/2025 8:01 AM EDT [facility] Comment:Auto resulted. Blood Venous blood specimen / Unknown Venipuncture / Unknown 02/12/2025 6:01 AM EDT 02/12/2025 6:12 AM EDT Ana Trimble DO LAB BLOOD ORDERABLES Lola l Result [facility] [address] [place] [address], * (ABNORMAL) C-reactive protein (02/12/2025 6:01 AM EDT) Pathologist [facility] C-Reactive Protein 0.83(H) <=0.50 mg/dL LAB CHEMISTRY METHOD 02/12/2025 12:12 PM EDT [facility] Blood Venous blood specimen / Unknown Venipuncture / Unknown 02/12/2025 6:01 AM EDT 02/12/2025 6:12 AM EDT Anna Wilkins NP LAB BLOOD ORDERABLES Final Result Performing Organization Address [facility] Co de Phone Number [facility] [address] [place] [address], [place] [phone] * ECG-Annotated (02/11/2025) Provider Onbase ECG ORDERABLES Final Result * Thyroid Stimulating Hormone (TSH) (02/10/2025 10:45 AM EDT) Pathologist [facility] TSH 1.85 0.40 - 4.00 mcIU/mL LAB CHEMISTRY METHOD 02/10/2025 1:42 PM EDT [facility] Blood Venous blood specimen / Unknown Venipuncture / Unknown 02/10/2025 10:45 AM EDT 02/10/2025 10:52 AM EDT Yuli Castorena MD LAB BLOOD ORDERABLES Final Resul t Performing Organization Address [facility] Co de Phone Number [facility] [address] [place] [address], [place] [phone] * MEGAN COMPLETE (02/04/2025 1:47 PM EDT) AV Mean Gradient 9 mmHg CV PACS Ao VTI 37.7 cm CV PACS AV Peak Cruz 2.1 m/s CV PACS AV Peak Gradient 17 mmHg CV PACS LVOT Mean Cruz 0.7 m/s CV PACS LVOT Mean Grad 3 mmHg CV PACS LVOT Peak VTI 21.4 cm CV PACS LVOT Peak Cruz 1.1 m/s CV PACS LVOT Peak Gradient 5 mmHg CV PACS MR PISA Nyquist Cruz 31 cm/s CV PACS PISA MR Radius 0.30 cm CV PACS LVOT:AV VTI Index 0.57 CV PACS AV Velocity Ratio 0.52 CV PACS BSA 1.79 m2 CV PACS MV Mean Gradient 4 mmHg CV PACS PISA MR EROA 0.03 cm2 CV PACS PISA Regurgitant Volume 7 mL CV PACS LA Appendage Velocity 44 cm/s CV PACS AV Acceleration Time 67 ms CV PACS Anatomical Region Laterality Modality X-Ray Angiograph y Narrative 02/07/2025 3:19 PM EDT Left ventricle cavity size is normal. Left ventricular systolic function is low normal with an ejection fraction of 50-55%. No regional LV wall motion abnormalities noted. Right ventricle cavity is grossly normal. Right ventricular systolic function is grossly normal. Left Atrium: The left atrial appendage is normal. The atrial appendage velocity is normal (greater than 40 cm/sec). There is no thrombus in the left atrial appendage. No patent foramen ovale visualized by color Doppler interrogation. Mobile interatrial septum. Aortic Valve: Visualization of the mechanical aortic valve leaflets was suboptimal. The valve has been surgically replaced. There is a bileaflet tilting disc mechanical valve. The prosthetic valve appears well-seated. There is trace transvalvular regurgitation. There is no evidence of aortic valve stenosis. The aortic valve peak velocity is 2.1 m/s, VTI ratio 0.57, acceleration time 67 ms. No evidence of any significant valve thrombus in the setting of suboptimal visualization of the prosthetic valve leaflets. Mitral Valve: There is mild regurgitation. 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 There is another partially visualized complex atheroma in the aortic arch measuring 1 cm in depth. Left Ventricle Left ventricle cavity size is normal. Wall thickness is normal. Systolic function is low normal with an ejection fraction of 50-55%. There are no regional LV wall motion abnormalities. Unable to assess diastolic function. Right Ventricle Right ventricle cavity appears grossly normal. Systolic function is grossly normal. Left Atrium Left atrium cavity is grossly dilated. The left atrial appendage is normal. The atrial appendage velocity is normal (greater than 40 cm/sec). There is no thrombus in the left atrial appendage. No patent foramen ovale visualized by color Doppler interrogation. Mobile interatrial septum. Right Atrium Right atrium cavity is grossly normal. There is a prominent Eustachian valve. Mitral Valve The leaflets are mildly thickened. There is moderate annular calcification. There is calcification of the anterior leaflet subvalvular apparatus. There is calcification of the posterior leaflet subvalvular apparatus. There is mild regurgitation. There is no significant stenosis noted. Tricuspid Valve The tricuspid valve was not well visualized. Tricuspid valve structure is normal. There is no significant regurgitation. The tricuspid valve is noted to be opening well on limited views. Aortic Valve Visualization of the mechanical aortic valve leaflets was suboptimal. The valve has been surgically replaced. There is a bileaflet tilting disc mechanical valve. The prosthetic valve appears well-seated. There is trace transvalvular regurgitation. There is no evidence of aortic valve stenosis. The aortic valve peak velocity is 2.1 m/s, VTI ratio 0.57, acceleration time 67 ms. No evidence of any significant valve thrombus in the setting of suboptimal visualization of the prosthetic valve leaflets. Pulmonic Valve The pulmonic valve was not well visualized. There is trace pulmonic valve regurgitation. The pulmonic valve is noted to be opening well on limited views. Ascending Aorta The aorta appears normal in size. 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 There is another partially visualized complex atheroma in the aortic arch measuring 1 cm in depth. Pericardium Pericardium appears normal. There is no pericardial effusion. Study Details Overall the study quality was adequate. A transesophageal echo was performed using 3D imaging and postprocessing performed without an independent workstation. The procedure, risks and alternatives were explained. Informed consent was obtained. The probe was inserted by the jackscrew worker. There was no probe insertion difficulty. by anesthesia. The patient had no complications. Estimated blood loss: no blood loss. No specimens were collected. 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 Procedure Details [facility] Department of cardiology Procedure: Transesophageal echocardiogram Indication: Evaluation of cardiac sources of emboli; recent multifocal CVA Contraindication: None Anesthesia: Intravenous medications for sedation were administered by the anesthesia service. Procedure description: The patient was referred for a transesophageal echocardiogram for evaluation of cardiac sources of emboli in the setting of recent multifocal CVA The patient does not have any history of neck surgeries, radiation to the neck, dysphagia, recent upper GI bleeding, recent upper gastrointestinal surgery, or thrombocytopenia. The patient is unable to provide medical consent at this point. The patient has a healthcare proxy who is the person who evaluates and consents for the patient's medical procedures. This is documented in the healthcare proxy documentation that I was able to review prior to the procedure. The patient's healthcare proxy is Violeta Whyte who is the patient's [id number]. As such, I explained the procedure to the patient's healthcare proxy (Violeta Whyte) via telephone. We discussed the benefits and risks of the procedure. Specifically, I discussed the possible procedural complications of a MEGAN which include: Esophageal rupture/perforation, GI bleed, gastric rupture/perforation, laryngospasm/bronchospasm, aspiration, or dental injuries. After the conversation, the patient's healthcare proxy agreed for us to proceed with the MEGAN. The patient's nurse was present as a witness during this telephone conversation. An appropriate timeout was performed in the presence of the anesthesia and nursing services. The patient was monitored with a conveyor monitor, blood pressure monitor, and oxygen saturation monitoring throughout the procedure. Sedation was provided by the anesthesia service. The MEGAN probe was inserted without complications. A complete transesophageal echocardiogram study was performed.. The probe was retrieved without complications. After the patient regained consciousness, I explained the findings to the patient. I also spoke with the patient's healthcare proxy (Violeta Whyte) and I reviewed with her the MEGAN findings. The patient was successfully monitored in the recovery unit and was later transferred back to the medical good. Results of the MEGAN were discussed with Dr. Enamorado (cardiology). I explained that the study did not show any evidence of left atrial appendage thrombus. There was also no obvious evidence of any mechanical aortic valve thrombus in the setting of suboptimal visualization of the mechanical aortic valve leaflets. I did tell him that there was evidence of multiple complex atheroma's (including in the aortic arch) which could potentially have been a mechanism of stroke in this patient. us Lizandro Austin MD CV ECHO PROCEDURES Final Resu lt * (ABNORMAL) TRANSTHORACIC ECHOCARDIOGRAM (TTE) COMPLETE W/ CONTRAST (02/02/2025 1:35 PM EDT) Left Atrium Minor Benson 5.1 cm CV PACS Left Atrium Major Benson 5.9 cm CV PACS LA Area Sys (A2C) 20 cm2 CV PACS LA Area Sys (A4C) 23 cm2 CV PACS LA Volume (BP) 73 mL CV PACS RA Area 16.8 cm2 CV PACS RA 2D Volume 36 mL CV PACS AV Mean Gradient 17 mmHg CV PACS Ao VTI 50.5 cm CV PACS AV Peak Cruz 2.7 m/s CV PACS AV Peak Gradient 29 mmHg CV PACS AV Area Continuity Equation 1.3 cm2 CV PACS AV Area Peak Velocity 1.2 cm2 CV PACS Aortic Arch 3.8 cm CV PACS Ascending Aorta 4.6 cm CV PACS IVC Proximal 1.3 cm CV PACS IVSD 1.2(A) 0.6 - 0.9 cm CV PACS LVIDD 3.8 3.8 - 5.2 cm CV PACS LVIDS 3.0 2.2 - 3.5 cm CV PACS LVOT Diameter 2.0 cm CV PACS LVOT Mean Cruz 0.7 m/s CV PACS LVOT Mean Grad 2 mmHg CV PACS LVOT Peak VTI 21.6 cm CV PACS LVOT Peak Cruz 1.0 m/s CV PACS LVOT Peak Gradient 4 mmHg CV PACS LVPWD 1.3(A) 0.6 - 0.9 cm CV PACS MV E' Tissue Velocity Lateral 8 cm/s CV PACS MV E' Tissue Velocity Septal 3 cm/s CV PACS LVOT Area 3.1 cm2 CV PACS LVOT Stroke Volume 68 mL CV PACS MV Deceleration Hartley 9.1 m/s2 CV PACS E Wave Deceleration Time 134 119 - 242 ms CV PACS MV PHT 39 ms CV PACS MV Peak A Cruz 1.49 m/s CV PACS MV Peak E Cruz 1.22 m/s CV PACS MV Mean Gradient 6 mmHg CV PACS MV VTI 44.9 cm CV PACS Mitral Valve Max Velocity 1.5 m/s CV PACS MV Peak Gradient 9 mmHg CV PACS MV Area PHT 5.6 cm2 CV PACS MV Area Continuity Equation 1.5 cm2 CV PACS PV Acceleration Time 95 ms CV PACS PV Acceleration Time 95 ms CV PACS RV Diastolic Basal Dimension 3.1 2.5 - 4.1 cm CV PACS RV S' 7 cm/s CV PACS TAPSE 14 mm CV PACS TR Peak Velocity 2.33 m/s CV PACS TR Peak Gradient 22 mmHg CV PACS E/E' Ratio Septal 41 CV PACS E/E' Ratio Averaged 28 CV PACS LVOT Stroke Index 39 mL/m2 CV PACS Relative Wall Thickness ratio 0.68 CV PACS LVOT:AV VTI Index 0.43 CV PACS FS 21 % CV PACS LV Mass 2D 163 g CV PACS Ascending Aorta Index 2.64 cm/m2 CV PACS MV VTI:LVOT VTI ratio 2.1 CV PACS LVOT flow 220 mL/s CV PACS RA 2D Volume Index 21 mL/m2 CV PACS SELENE Index (VTI) 0.77 cm2/m2 CV PACS SELENE Index (Pk Cruz) 0.69 cm2/m2 CV PACS LVIDD Index 2.18 cm/m2 CV PACS LVIDS Index 1.72 cm/m2 CV PACS AV Velocity Ratio 0.37 CV PACS E/A Ratio 0.8 CV PACS E/E' Ratio Lateral 15 CV PACS LA Volume Index (BP) 42 mL/m2 CV PACS LV Mass Index 2D 94 g/m2 CV PACS BSA 1.79 m2 CV PACS Right Ventricular Peak Systolic Pressure 25 mmHg CV PACS Est. RA Pressure 3 mmHg CV PACS Anatomical Region Laterality Modality Ultrasound Narrative 02/02/2025 4:10 PM EDT Left ventricle cavity size is normal. Left ventricular systolic function is low normal with an ejection fraction of 50-55%. Left ventricle moderate concentric hypertrophy. There is Grade II (moderate) diastolic dysfunction. Right ventricle cavity is normal. Right ventricular systolic function is mildly reduced. Mitral valve demonstrates mild stenosis. This is due to mitral Valentino calcification with a 6 mmHg mean gradient Mitral valve with moderately thickened leaflets. Moderate aortic stenosis with a 17 mmHg mean gradient No previous study for comparison Left Ventricle Left ventricle cavity size is normal. There is moderate concentric hypertrophy. Systolic function is low normal with an ejection fraction of 50-55%. Abnormal septal motion. There is Grade II (moderate) diastolic dysfunction. Right Ventricle Right ventricle cavity appears normal. Systolic function is reduced. Left Atrium Left atrium cavity is moderately dilated. Right Atrium Right atrium cavity is normal. IVC/SVC RA pressures is estimated to be 3 mmHg (IVC diameter <21 mm and decreases >50% during inspiration). Mitral Valve The leaflets are moderately thickened. There is annular calcification. There is trace regurgitation. There is mild stenosis with a mean gradient of 6 mmHg at 69 bpm. Tricuspid Valve Tricuspid valve structure is normal. There is trace regurgitation. There is no evidence of tricuspid valve stenosis. The right ventricular systolic pressure is normal. Aortic Valve [employer] mechinal valve is well seated. There is trace regurgitation. The mean gradient through the valve is 17 mmHg. Pulmonic Valve Pulmonic valve structure is normal. There is trace pulmonic valve regurgitation. There is no evidence of pulmonic valve stenosis. Ascending Aorta Ascending aorta 4.6 cm. Aortic arch 3.8 cm. Pericardium Pericardium appears normal. There is no pericardial effusion. Study Details Overall the study quality was technically difficult. Definity contrast was given to enhance imaging. us Elbert Enamorado MD CV ECHO PROCEDURES Final Result * ROUTINE EEG (02/02/2025 11:58 AM EDT) Narrative Efe Serrano MD - 02/03/2025 8:30 AM EDT Efe Serrano MD 02/03/2025 8:39 AM Routine EEG Date/Time: 02/03/2025 8:30 AM Performed by: Efe Serrano MD Authorized by: SAVANNAH Rosales us Diane NUÑEZ NEUROLOGY ORDERABLES Final R esult * Lactate (02/02/2025 5:54 AM EDT) Only the most recent of2 resultswithin the time period is included. Lactate 0.8 0.4 - 2.0 mmol/L LAB CHEMISTRY METHOD 02/02/2025 7:03 AM EDT [facility] Blood Venous blood specimen / Unknown Venipuncture / Unknown 02/02/2025 5:54 AM EDT 02/02/2025 6:18 AM EDT us Diane NUÑEZ LAB BLOOD ORDERABLES Final R esult [facility] [address] [place] [address], [place] [phone] * (ABNORMAL) Urinalysis with reflex microscopic (02/01/2025 9:15 PM EDT) Specific [place] Urine 1.039(H) 1.003 - 1.030 LAB URINALYSIS - AUTOMATED [facility] pH, Urine 5.5 5.0 - 8.0 pH LAB URINALYSIS - AUTOMATED METHOD 02/01/2025 9:26 PM [facility] Leukocytes, Urine Negative Negative LAB URINALYSIS - AUTOMATED METHOD 02/01/2025 9:26 PM [facility] Nitrite, Urine Negative Negative LAB URINALYSIS - AUTOMATED METHOD 02/01/2025 9:26 PM [facility] Protein, Urine Negative <=Trace mg/dL LAB URINALYSIS - AUTOMATED METHOD 02/01/2025 9:26 PM [facility] Glucose, Urine >=1000(A) Negative mg/dL LAB URINALYSIS - AUTOMATED METHOD 02/01/2025 9:26 PM [facility] Ketones, Urine Negative Negative mg/dL LAB URINALYSIS - AUTOMATED METHOD 02/01/2025 9:26 PM [facility] Urobilinogen , Urine 0.2 0.2 - 1.0 mg/dL LAB URINALYSIS - AUTOMATED METHOD 02/01/2025 9:26 PM [facility] Bilirubin, Urine Negative Negative LAB URINALYSIS - AUTOMATED METHOD 02/01/2025 9:26 PM [facility] Blood, Urine Negative Negative LAB URINALYSIS - AUTOMATED METHOD 02/01/2025 9:26 PM [facility] Urine Urine specimen obtained by clean catch procedure / Unknown Non-blood Collection / Unknown 02/01/2025 9:15 PM EDT 02/01/2025 9:22 PM EDT Cortez Lincoln MD LAB URINE ORDERABLES Final Resul t [facility] [address] [place] [address], * CT Chest wo Contrast (02/01/2025 7:46 PM EDT) Anatomical Region Laterality Modality Body Computed Tomogra phy 02/01/2025 8:20 PM EDT Impressions 02/01/2025 8:20 PM EDT 1. Bilateral thyroid nodules, which could be further assessed with nonemergent outpatient follow-up ultrasound, if clinically indicated. 2. Aneurysmal dilatation of the ascending thoracic aorta. 3. Coronary artery disease. 4. Cholelithiasis. 5. Mild atypical pneumonia. This document has been electronically signed by: River Hunt MD on 02/01/2025 20:20:01 Narrative 02/01/2025 8:20 PM EDT INDICATION: hypoxia CT chest without contrast Comparison: None provided Findings: Cardiomegaly. Calcification of the coronary vasculature. Bilateral thyroid nodules, largest of which measures 15 mm in the left lobe posteriorly. Mild fusiform aneurysmal dilatation of the ascending thoracic aorta measuring 44 mm. Mild diffuse ground-glass pulmonary opacity. Visualized portions of the upper abdomen demonstrate calculi within the gallbladder lumen. The bones are intact. Median sternotomy. Multilevel disc space narrowing and endplate osteophyte formation, as well as facet hypertrophy. Procedure Note River Hunt MD - 02/01/2025 INDICATION: hypoxia CT chest without contrast Comparison: None provided Findings: Cardiomegaly. Calcification of the coronary vasculature. Bilateral thyroid nodules, largest of which measures 15 mm in the left lobe posteriorly. Mild fusiform aneurysmal dilatation of the ascending thoracic aorta measuring 44 mm. Mild diffuse ground-glass pulmonary opacity. Visualized portions of the upper abdomen demonstrate calculi within the gallbladder lumen. The bones are intact. Median sternotomy. Multilevel disc space narrowing and endplate osteophyte formation, as well as facet hypertrophy. IMPRESSION: 1. Bilateral thyroid nodules, which could be further assessed with nonemergent outpatient follow-up ultrasound, if clinically indicated. 2. Aneurysmal dilatation of the ascending thoracic aorta. 3. Coronary artery disease. 4. Cholelithiasis. 5. Mild atypical pneumonia. This document has been electronically signed by: River Hunt MD on 02/01/2025 20:20:01 Cortez Lincoln MD [facility] CT PROCEDURES Final Result * CT Abdomen Pelvis wo Contrast (02/01/2025 7:46 PM EDT) Anatomical Region Laterality Modality Body Computed Tomogra phy 02/01/2025 8:20 PM EDT Impressions 02/01/2025 8:20 PM EDT 1. Cholelithiasis. 2. No acute process. This document has been electronically signed by: River Hunt MD on 02/01/2025 20:20:36 Narrative 02/01/2025 8:20 PM EDT INDICATION: Abdominal pain, acute, nonlocalized CT abdomen and pelvis without contrast Comparison: None provided Findings: No consolidation or effusion. Calculi within the gallbladder lumen are present. Solid organs are within normal limits. No bowel obstruction, pneumoperitoneum, or pneumatosis. Pelvic contents unremarkable. Appendix is not seen. The bones are intact. Procedure Note River Hunt MD - 02/01/2025 INDICATION: Abdominal pain, acute, nonlocalized CT abdomen and pelvis without contrast Comparison: None provided Findings: No consolidation or effusion. Calculi within the gallbladder lumen are present. Solid organs arewithin normal limits. No bowel obstruction, pneumoperitoneum, or pneumatosis. Pelvic contents unremarkable. Appendix is not seen. The bones are intact. IMPRESSION: 1. Cholelithiasis. 2. No acute process. This document has been electronically signed by: River Hunt MD on 02/01/2025 20:20:36 Cortez Lincoln MD [facility] CT PROCEDURES Final Result * Prolactin (02/01/2025 6:36 PM EDT) Prolactin 16.10 See Comment ng/mL LAB CHEMISTRY METHOD 02/01/2025 7:20 PM EDT [facility] Comment: Prolactin Reference Ranges (ng/mL) Non 2.2 - 30.3 8.1 - 347.6 Postmenopausal 0.7 - 31.5 Blood Venous blood specimen / Unknown Venipuncture / Unknown 02/01/2025 6:36 PM EDT 02/01/2025 6:43 PM EDT us Enoc Rick MD LAB BLOOD ORDERABLES Final R esult [facility] ([facility] [address] [place] [address], [place] [phone] * POC glucose manually resulted (02/01/2025 6:33 PM EDT) Pathologist [facility] Glucose POC 266 mg/dL Blood Capillary blood specimen / Unknown 02/01/2025 6:33 PM EDT us Enoc Rick MD POINT OF CARE TEST ENTER/SHERYL T ORDERABLES Final Result from Last 3 Months Insurance [facility] MEDICARE ADVANTAGE Advance Directives Documents on File Type Date Recorded Patient Anesthesia Technician Expl anation Advance Directives and Living Will 02/12/2025 1:10 PM PROXY Advance Directives and Living Will 02/01/2025 7:43 AM Violeta (Dghtr in law) Jimmy Whyte HEALTH CARE PROXY * No CPR/Do Not Intubate (Latest Code Status on File) Date Activated Date Inactivated Comments 02/18/2025 5:08 PM 03/10/2025 3:50 PM This code s tatus was ascertained in the following way: Code status discussion: discussion with healthcare phlebotomy services representativeSilverio To update the patient's code status, place a code status order. Do not modify or discontinue any currently active code status orders. * Full Code - Default Date Activated Date Inactivated Comments 02/14/2025 11:48 AM 02/18/2025 5:08 PM This is ord er is used when code status has not been discussed with the patient, or code status is otherwise unknown/unconfirmed To update the patient's code status, place a code status order. Do not modify or discontinue any currently active code status orders. * Full Code - Default Date Activated Date Inactivated Comments 02/07/2025 5:07 PM 02/14/2025 11:48 AM This is ord er is used when code status has not been discussed with the patient, or code status is otherwise unknown/unconfirmed To update the patient's code status, place a code status order. Do not modify or discontinue any currently active code status orders. * Full Code - Confirmed Date Activated Date Inactivated Comments 02/01/2025 11:11 PM 02/07/2025 4:[address] atus was ascertained in the following way: Code status discussion: per living will or healthcare instructions To update the patient's code status, place a code status order. Do not modify or discontinue any currently active code status orders. * Full Code - Default Date Activated Date Inactivated Comments 01/31/2025 3:59 PM 02/01/2025 11:11 PM This is order is used when code status has not been discussed with the patient, or code status is otherwise unknown/unconfirmed To update the patient's code status, place a code status order. Do not modify or discontinue any currently active code status orders. Healthcare Agents on File Name Relationship Healthcare Agent Relationship Communication Violeta (Dghtr in law) Pato Relative Health Care Agent Silverio Whyte Son First Alternate Health Care Agent Care Teams Private Eye Relationship Specialty Start Date End Date Paco Schuler MD [address] [place] [phone] PCP - General Internal Medicine 04/28/20
[2025-04-27 19:16] LABS: Troponin-I High Sensitivity 65.4 ng/L (<3.5-17.0)
[2025-04-27 19:17] LABS: Hematocrit 28.0 % (37.0-47.0); Hemoglobin 8.0 g/dl (12.0-16.0); Imm Gran Abs Auto 0.08 X10*3/uL (0.00-0.03); Imm Gran Pct Auto 0.5 % (0.0-0.4); Lymphocytes Absolute Auto 1.1 X10*3/uL (1.2-4.9); Mean Corpuscular HGB Conc 28.6 g/dl (31.0-35.0); Mean Corpuscular Hemoglobin 20.3 pg (27.0-33.0); Mean Corpuscular Volume 70.9 fL (80.0-98.0); NRBC Abs Auto 0.000 X10*3/uL (0.0-0.012); NRBC Pct Auto 0.0 /100WBC (0.0-0.2); Platelet Count 510 X10*3/uL (160-400); Red Blood Count 3.95 X10*6/uL (4.20-5.50); White Blood Count 15.8 X10*3/uL (4.8-10.8)
[2025-04-27 19:28] LABS: Resp Syncy Virus RNA Qual PCR NEGATIVE (Negative); SARS COV2 PCR INHOUSE NEGATIVE (Negative)
--- NOTE | 2025-04-27 19:31 | PC.NURSE ---
Pt returned from xray Pt placed on monitor Plan of care ongoing.
--- NOTE | 2025-04-27 20:53 | PM.IMHP ---
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 The patient is nonverbal therefore unable to provide a history. Pt's son who helps care for her states that she has visiting nurses that have been caring for her decubitus ulcer however noted today that it appears infected and she is febrile, therefore recommended she come to the ED. The son notes that she has had a great appetite, no episodes of respiratory symptoms including cough, nasal congestion, abdominal complaints, urinary symptoms. Review of Systems Review of Systems: Yes Unobtainable due to mental condition PMFSH Medical History Angiectasia AVM (arteriovenous malformation) of colon On warfarin therapy Anemia Breast cancer Diabetes Anticoagulated on Coumadin Hypertension Surgical History Status post ablation of incompetent vein using laser Heart valve replaced Social History Household Members: Spouse and Children Housing: House Are you a primary medicare compliance auditor to a significant other at home: No Do you presently have visiting nurse or other home services: No Alcohol intake: never Patient Tobacco Use Status: Never used Tobacco Smoked in Last 30 Days: No Use of substances other than those prescribed or required for medical reasons: No Advance Directives: Yes Advance Directives on File: Yes Advance Directives Date on File: 07/16/24 Do you have a plan to hurt others: No Plan service: No Meds Allergies Allergy/AdvReac Type Severity Reaction Status Date / Time No Known Allergies Allergy Verified 04/27/25 18:14 Active Medications: Current Medications Dextrose (Dextrose 50 % 25 Gm/50 Ml Syringe) 25 gm IVPUSH Q15M PRN; Protocol PRN Reason: per Hypoglycemia Standing Ord. Glucose (Glucose Gel 15 Gm Gel..Gram.) 15 gm PO Q15M PRN; Protocol PRN Reason: per Hypoglycemia Standing Ord. Vancomycin HCl 1,000 mg/ (Sodium Chloride) 270 mls @ 270 mls/hr IV ONCE ONE Stop: 04/27/25 20:59 Last Admin: 04/27/25 20:47 Dose: 270 mls/hr Piperacillin Sod/Tazobactam (Sod 3.375 gm/ Sodium Chloride) 50 mls @ 100 mls/hr IV Q6H [facility] Insulin Human Lispro (Insulin Lispro 100 Unit/Ml 3 Ml Vial) 0 unit SUBCUT QIDACHS [facility]; Protocol Pharmacy Consult (Consult Rx Vancomycin Dosing) 1 each MISCELLANE DAILY PRN PRN Reason: Consult order Home Medications ?Medication ?Instructions ?Recorded ?Confirmed ?Last Taken ?Type insulin glargine 100 unit/mL (3 26 unit subcut BEDTIME 06/12/24 04/27/25 04/26/25 History mL) subcutaneous pen (Lantus Solostar U-100 Insulin) metoprolol tartrate 50 mg tablet 50 mg PO BID 06/12/24 04/27/25 04/27/25 History valsartan 160 mg tablet 160 mg PO DAILY@0900 06/12/24 04/27/25 04/27/25 History furosemide 20 mg tablet 20 mg PO DAILY 10/31/24 04/27/25 04/27/25 History collagenase clostridium histo. 250 1 appl topical DAILY 04/27/25 04/27/25 Unknown History unit/gram topical ointment (Santyl) insulin lispro 100 unit/mL 12 unit subcut BID@0730,1130 04/27/25 04/27/25 04/27/25 History subcutaneous solution (Humalog U-100 Insulin) insulin lispro 100 unit/mL 16 unit subcut DAILY@1630 04/27/25 04/27/25 04/26/25 History subcutaneous solution (Humalog U-100 Insulin) levetiracetam 500 mg tablet 500 mg PO BID 04/27/25 04/27/25 04/27/25 History nystatin 100,000 unit/gram topical 1 appl topical BID 04/27/25 04/27/25 04/27/25 History powder omeprazole 2 mg-sodium bicarbonate 10 ml PO DAILY 04/27/25 04/27/25 04/27/25 History 84 mg/mL oral suspension (Konvomep) tramadol 50 mg tablet 25 mg PO Q6H PRN pain 04/27/25 04/27/25 Unknown History warfarin 2 mg tablet 4 mg PO SUMOWEFRSA 04/27/25 04/27/25 04/25/25 History warfarin 2 mg tablet 6 mg PO TUTH 04/27/25 04/27/25 04/26/25 History Physical Exam Vital Signs and Narrative: Vital Signs: Last Vital Signs Temp 99.0 F 04/27/25 20:00 Pulse 86 04/27/25 20:20 Resp 22 H 04/27/25 20:20 BP 135/60 04/27/25 20:20 Pulse Ox 92 04/27/25 20:20 O2 Del Method Room Air 04/27/25 20:20 BMI result Body Mass Index 24.8 General: Alert, no acute distress, seen with the son bedside who provides history Resp: CTA bilaterally CVS: Irregularly irregular, murmur, rate controlled on tele GI: +BS, NT, no distention Skin: Warm, dry. decubitus ulcer- necrotic wound with surrounding erythema, see photo Neuro: Cranial nerves II-XII grossly intact bilaterally. Motor grossly intact bilaterally Extremities: No pitting edema Psych: Appropriate affect Results Labs 04/27/25 18:36 04/27/25 18:36 Labs: Laboratory Results - last 24 hr 04/27/25 18:36 MCV 70.9 L MCH 20.3 L MCHC 28.6 L RDW 17.1 H Plt Count 510 H D MPV 10.0 Immature Gran % (Auto) 0.5 H Neut % (Auto) 85.6 H Lymph % (Auto) 6.8 L [place] % (Auto) 6.6 Eos % (Auto) 0.1 Baso % (Auto) 0.4 Lymph # (Auto) 1.1 L [place] # (Auto) 1.0 Eos # (Auto) 0.0 Baso # (Auto) 0.1 Abs Immat Gran (auto) 0.08 H Absolute Neuts (auto) 13.5 H Absolute Nucleated RBC 0.000 Nucleated RBC % (auto) 0.0 Anion Gap 12 Estim Creat Clear Calc 44.9 Estimated GFR 60 Random Glucose 199 H Lactic Acid 1.2 Calcium 9.4 Total Bilirubin 0.2 Direct Bilirubin < 0.2 AST 25 ALT 10 Alkaline Phosphatase 100 Troponin I High Sens 65.4 H* D Total Protein 7.2 Albumin 3.4 L Lipase 29 Influenza Type A (PCR) NEGATIVE Influenza Type B (PCR) NEGATIVE RSV RNA Qual (PCR) NEGATIVE SARS-CoV-2 RNA (RT-PCR) NEGATIVE Assessment and Plan (1) Sepsis: Status: Acute (2) Infected wound: Status: Acute (3) Decubitus ulcer: Status: Acute (4) Osteomyelitis: Status: Acute (5) New onset a-fib: Status: Acute (6) Elevated troponin: Status: Acute Plan Patient is a 79-year-old female with a past medical history significant for chronic decubitus ulcer, hypertension, type 2 diabetes, hyperlipidemia, HFpEF, mechanical aortic valve replacement on warfarin, 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 Sepsis secondary to infected decubitus ulcer with osteomyelitis on CT - Zosyn and vancomycin - general surgery and ID consults - wound care consult - monitor CBC and BMP elevated troponin - EKG with a fib/RVR, rate normalized now - trop 65.4, repeat pending - tele - cardiology consult - on warfarin - echo new onset a fib - tele - warfarin - continue metoprolol - cardiology consult Hypertension - metorpolol, valsartan, amlodipine HLD - continue home meds T2 dm - sliding scale insulin - hold metformin - Lantus daily HFpEF, no acute exacerbation - hold Lasix due to sepsis, resume after 24 hours if BP normal Mechanical aortic valve replacement - warfarin - monitor PT/INR History CVA ?seizures - keppra - puree diet - no formal OVEN UNLOADER evaluation here, OVEN UNLOADER eval placed to ensure correct diet DNR/DNI, son confirmed change in status VTE prophy: warfarin Patient with sepsis secondary to infected decubitus ulcer, complicated by elevated troponin, requiring admission for at least 2 midnight stay for IV antibiotics, specialist consultations and monitoring. Quality Stroke Does the patient have a stroke diagnosis?: No VTE Prior VTE?: No VTE Risk Level:: Medical - moderate - high VTE Device Contraindication: Treatment Not Indicated VTE Drug Contraindication: N/A - Med Ordered
[2025-04-27 21:12] LABS: INTERNATIONAL NORM RATIO 2.1 (0.9-1.1); Prothrombin Time 25.0 SEC (11.2-13.5)
--- NOTE | 2025-04-27 21:13 | PC.NURSE ---
Pt with radiology Plan of care ongoing.
[2025-04-27] MEDS: iohexoL 350 MG/ML 100 ML INFUS..BTL IV (21:21)
[2025-04-27 21:32] LABS: Troponin-I High Sensitivity 76.1 ng/L (<3.5-17.0)
--- NOTE | 2025-04-27 22:24 | PHA.MEDREC ---
Pharmacy Consult ? Medication Reconciliation Pharmacy has completed the medication reconciliation. Spoke to patient's daughter in law Violeta (who takes care of patient's home meds) over the phone to confirm medication list. Per Violeta, patient takes warfarin 6 mg on friday and and 4 mg daily on all other days (next INR check is on friday). Patient takes lantus 26 units at bedtime, humalog 12 units with breakfast and lunch and 16 units with dinner. Patient does not take pantoprazole anymore, she takes the omeprazole suspension now. She also does not take jardiance nor metformin. Nystatin powder is applied twice a day under arms and breasts. Last dose of medications was this morning 04/27/25.
--- NOTE | 2025-04-27 22:26 | MHC.EDTECH ---
Patient inc stool therefore changed and repositioned
--- NOTE | 2025-04-27 22:27 | PHA.PROG ---
Admission Date/Time: April 27, 2025 20:25 Indication: Weight in k.4 kg Adjusted body weight in Kg: Harmony body weight in Kg: Obesity Dosing Indication % IBW: Serum Creatinine - Last 168 Hours 04/27/25 18:36 Creatinine 0.91 Estimated CrCl and GFR - Last 168 Hours 04/27/25 18:36 Estim Creat Clear Calc 44.9 Estimated GFR 60 Vancomycin Loading Dose: 1000 MG IN ED PLUS ANOTHER 500 MG FOR 1500 MG TOTAL LOAD Current Vancomycin Dosing Regimen: 1250 MG Q 24 HOURS Vancomycin Monitoring using AUC goal of 400 - 600 range with trough as surrogate marker: Date and Time for next Vancomycin Level to be drawn: 04/29/25 1900 Pharmacist Comments on Vancomycin Plan: PREDICTED AUC OF 555 Vancomycin dosing will take advantage of Dr [employer] as a clinical decision support tool that uses Bayesian modeling to calculate individual patient's pharmacokinetic parameters and forecast the patient's drug concentration time course with the target goal AUC 24 range of 400 - 600 mg/L/hr.
[2025-04-27 22:30] LABS: Glucose, Whole Blood 191 mg/dL (60-115)
--- NOTE | 2025-04-27 22:45 | PC.NURSE ---
Warfarin just received from pharmacy. Plan of care ongoing.
--- NOTE | 2025-04-27 23:36 | PC.NURSE ---
Late entry This RN called pts son @ [phone] to verify whether pt is able to swallow pills whole. Per pts daughter in law, pills must be crushed and given in pudding or applesauce. Warfarin crushed and given in pudding. Pt tolerated well. Plan of care ongoing.
--- NOTE | 2025-04-27 23:54 | PC.NURSE ---
assumed care of patient. IV antibiotics not hung on previous shift, had to be taken from another units pyxis as were not loaded in ED. felt finishing supervisor brought meds to this RN and RN hung for patient.
[2025-04-27] MEDS: 0.9 % Sodium Chloride Flush 3 ML SYRINGE IVFLUSH (23:57)
[2025-04-28] VITALS (12 sets, daily range): BP systolic 109–147; BP diastolic 48–71; PULSE 80–124; RESP 16–23; TEMP 36.3–37.6; O2SAT 93–98
--- NOTE | 2025-04-28 00:50 | PC.NURSE ---
patient had some BPs in 90s systolically but improved. provider aware and instructed to hold metoprolol for tonights dose.
[2025-04-28] MEDS: levETIRAcetam Oral Soln 500 MG/5 ML PO ×3 (00:57→22:40)
[2025-04-28 04:32] LABS: Appearance Urine Clear; Glucose Urine UA Negative (Negative); PH 5.0 (5.0-9.0); Specific Gravity - Urine >= 1.030 (1.005-1.025)
[2025-04-28 04:39] LABS: MANUAL DIFF FLAG NO
[2025-04-28 04:40] LABS: Hematocrit 27.3 % (37.0-47.0); Hemoglobin 7.8 g/dl (12.0-16.0); Imm Gran Abs Auto 0.08 X10*3/uL (0.00-0.03); Imm Gran Pct Auto 0.5 % (0.0-0.4); Lymphocytes Absolute Auto 1.5 X10*3/uL (1.2-4.9); Mean Corpuscular HGB Conc 28.6 g/dl (31.0-35.0); Mean Corpuscular Hemoglobin 20.6 pg (27.0-33.0); Mean Corpuscular Volume 72.0 fL (80.0-98.0); NRBC Abs Auto 0.000 X10*3/uL (0.0-0.012); NRBC Pct Auto 0.0 /100WBC (0.0-0.2); Platelet Count 424 X10*3/uL (160-400); Red Blood Count 3.79 X10*6/uL (4.20-5.50); White Blood Count 16.2 X10*3/uL (4.8-10.8)
[2025-04-28 04:56] LABS: Anion Gap 15 (12-20); Blood Urea Nitrogen 19 mg/dL (9-16); Calcium 9.1 mg/dL (8.4-10.2); Carbon Dioxide 24 mmol/L (22-29); Chloride 106 mmol/L (96-108); Creatinine Clr Calc Pharmacy 63.8; Estimated Glomerular Filt Rate > 60; Potassium 3.6 mmol/L (3.3-5.1); Sodium 141 mmol/L (135-145)
[2025-04-28 04:58] LABS: INTERNATIONAL NORM RATIO 2.1 (0.9-1.1); Prothrombin Time 25.2 SEC (11.2-13.5)
[2025-04-28] MEDS: Omeprazole/Na Bicarb Oral Susp 20 MG/10 ML UD Cup PO (06:37)
--- NOTE | 2025-04-28 07:00 | CA_ITS ---
Transthoracic Echocardiogram Patient (Last, First, Middle): Emily Whyte I Gender: Female Date of : 1945 Age: 79 Procedure Date: 04/28/2025 Procedure Type: Transthoracic Echocardiogram Location: ER Height: 160.02 cm Weight: 63.05 kg BSA: 1.66 m2 Heart Rate: 97 bpm BP: 131 / 63 mmHg Special Effects Designer: MAGGIE Referring MD: Stefany Yeboah PA-C Symptoms: elevated trop Study Quality: Adequate ECG Rhythm: Undetermined Conclusions: - The left ventricular systolic function is low normal. The visually estimated ejection fraction is between 50-55%. - A mechanical prosthetic aortic valve is present. The prosthetic aortic valve appears to be functioning abnormally. Echo findings are consistent with stenosis of the aortic valve prosthesis. - There is severe mitral annular calcification. Suspect some calcific mitral stenosis. 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 Findings Left Ventricle Normal left ventricular cavity size. There is moderately increased left ventricular wall thickness. The left ventricular systolic function is low normal. The visually estimated ejection fraction is between 50-55%. Diastolic function is indeterminate on the basis of available data. Right Ventricle Normal right ventricular cavity size. There is low normal right ventricular systolic function. Atria Moderate biatrial enlargement. Aortic Valve A mechanical prosthetic aortic valve is present. The prosthetic aortic valve appears to be functioning abnormally. Echo findings are consistent with stenosis of the aortic valve prosthesis. The aortic valve was not well visualized. The mean gradient is 28 mmHg. The aortic valve area is 1.04 cm2. There is no aortic valve regurgitation. Mitral Valve There is severe mitral annular calcification. There is no mitral valve stenosis. Suspect some degree of calcific mitral stenosis. Pulmonic Valve The pulmonic valve is likely normal. Tricuspid Valve There is mild tricuspid valve regurgitation. There is no evidence of pulmonary hypertension. Great Vessels The aortic arch is normal in size. There is moderate dilatation of the ascending aorta measuring 4.60 cm. Venous The inferior vena cava is normal in size and collapses greater than 50% with inspiration. Pericardium/Pleural There is no evidence of pericardial effusion. Prior Study Comparison No significant change compared to prior study dated: 01/24/2025. Measurements 2D Linear Measurements IVSd: 1.24 0.6-0.9/0.6-1.0 cm LVIDd: 4.11 3.9-5.3/4.2-5.9 cm LVIDd Index: 2.48 2.4-3.2/2.2-3.1 cm/m2 LVIDs: 3.49 2.0-3.6 cm LVPWd: 1.46 0.7-1.1 cm LA Diam: 4.40 2.7-3.8/3.0-4.0 cm LAIDs Index: 2.65 1.5-2.3 cm/m2 LV Mass: 256.25 67-162/88-224 g LV Mass Index: 154.37 43-95/49-115 g/m2 LVOT Diam: 2.00 3.0+(-)1.3 cm 2D Systolic Function EF 4C: 41.60 >55% EF 2C: 70.80 >55% EF BiP: 57.60 >55% Mitral Valve MV VTI: 0.38 MV Pk Cruz: 1.95 MV Mn Cruz: 1.30 MV Pk Grad: 15.00 MV Mn Grad: 9.00 MV Pk E: 1.61 MV Decel Time: 214.00 E'Lateral: 6.75 E'Medial: 5.11 E/E' Med: 31.50 E/E' Lat: 23.90 PHT: 63.00 MVA PHT: 3.49 MVA Continuity: 1.95 Decel Ralls: 7.55 Aortic Valve AoV Pk Cruz: 3.37 AoV Mn Cruz: 2.52 AoV VTI: 0.72 AoV Pk Grad: 45.00 Aov Mn Grad: 28.00 SELENE Cont.VTI: 1.04 LVOT LVOT Pk Cruz: 1.26 LVOT Mn Cruz: 0.92 LVOT VTI: 0.24 LVOT Pk Grad: 6.00 LVOT Mn Grad: 4.00 LVOT Diam: 2.00 LVOT Area: 3.14 Diastolic Function MV Pk E: 1.61 E'Medial: 5.11 E/E' Med: 31.50 E' Laterial: 6.75 E/E' Lat: 23.90 Right Ventricle TAPSE (mm): 22.30 TVS' Cruz: 10.10 Tricuspid Valve TR Pk Cruz: 2.60 TR Pk Grad: 27.00 RA Press: 3.00 RVSP: 30.00 Great Vessels Aorta Sinus of Valsalva: 3.40 2.0-3.5 cm Ao Asc: 4.60 2.1-3.4 cm Ao Arch: 3.90 Pulmonary Valve PV Pk Cruz: 1.46 Peak PV Grad: 9.00 Updated in Other Vendor System with Status of Final Ramirez Younger MD electronically signed on 04/28/2025 4:20:07 PM with status of Final
[2025-04-28 07:09] LABS: Glucose, Whole Blood 309 mg/dL (60-115)
[2025-04-28] MEDS: 0.9 % Sodium Chloride Flush 3 ML SYRINGE IVFLUSH ×2 (07:18→22:41)
--- NOTE | 2025-04-28 07:45 | HO.NURTONUR ---
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 The patient is nonverbal therefore unable to provide a history. Pt's son who helps care for her states that she has visiting nurses that have been caring for her decubitus ulcer however noted today that it appears infected and she is febrile, therefore recommended she come to the ED. The son notes that she has had a great appetite, no episodes of respiratory symptoms including cough, nasal congestion, abdominal complaints, urinary symptoms. PER RN: Admit: Sepsis, ulcer wound on bottom, osteomylitis, new onset afib Alert, mostly [place] speaking, some Citizen Of [place]. Right sided deficits from previous strokes Puree diet, needs assistance Meds crushed with pudding Bed bound IV: 20G in right hand and 20G in left hand IV ABX Diabetic, POC checks Bed sanz for urine, did need to be straight cath last night
--- NOTE | 2025-04-28 09:25 | PM.CNGS ---
History of Present Illness Consult details Consult date: 04/28/25 Reason for consult: wound care (sacral decubitus ) Narrative: 79 year old female with a history of afib, AVR on warfarin, DM, HTN, CVA in December 2024 with a right hemiparesis, seen in consult for necrotic sacral decubitus wound. Patient had known wound, visiting nurse noticed redness, fever at home. She has been started on empiric antibiotics, IV vanco and zosyn. She was a minimal participant in the evaluation and thus was unable to provide much history even with macroeconomics professor. She was able to say that this causes some pain. COUNT INCLUDES THE [facility] Past Medical History Medical History Angiectasia AVM (arteriovenous malformation) of colon On warfarin therapy Anemia Breast cancer Diabetes Anticoagulated on Coumadin Hypertension Surgical History Surgical History Status post ablation of incompetent vein using laser Heart valve replaced Social History Social History Household Members: Spouse and Children Housing: House Are you a primary housekeeper child care to a significant other at home: No Do you presently have visiting nurse or other home services: No Alcohol intake: never Patient Tobacco Use Status: Never used Tobacco Smoked in Last 30 Days: No Use of substances other than those prescribed or required for medical reasons: No Advance Directives: Yes Advance Directives on File: Yes Advance Directives Date on File: 07/16/24 Do you have a plan to hurt others: No Plan service: No Meds Allergies Allergy/AdvReac Type Severity Reaction Status Date / Time No Known Allergies Allergy Verified 04/27/25 18:14 Active Medications: Current Medications Amlodipine Besylate (Amlodipine Besylate 5 Mg Tablet) 5 mg PO DAILY [facility]; Protocol Aspirin (Aspirin 81 Mg Tab.Chew) 81 mg PO DAILY [facility] Atorvastatin Calcium (Atorvastatin Calcium 80 Mg Tablet) 80 mg PO DAILY [facility] Calcium Carbonate (Calcium Carbonate 750 Mg Tab.Chew) 750 mg PO Q4H PRN PRN Reason: Heartburn Dextrose (Dextrose 50 % 25 Gm/50 Ml Syringe) 25 gm IVPUSH Q15M PRN; Protocol PRN Reason: per Hypoglycemia Standing Ord. Glucose (Glucose Gel 15 Gm Gel..Gram.) 15 gm PO Q15M PRN; Protocol PRN Reason: per Hypoglycemia Standing Ord. Piperacillin Sod/Tazobactam (Sod 3.375 gm/ Sodium Chloride) 50 mls @ 100 mls/hr IV Q6H [facility] Last Infusion: 04/28/25 04:17 Dose: Infused Vancomycin HCl 1,250 mg/ (Sodium Chloride) 250 mls @ 166.667 mls/hr IV Q24H [facility] Acetaminophen (Ofirmev) 1,000 mg in 100 mls @ 400 mls/hr IV Q6H [facility] Last Infusion: 04/28/25 05:43 Dose: Infused Insulin Human Lispro (Insulin Lispro 100 Unit/Ml 3 Ml Vial) 0 unit SUBCUT QIDACHS [facility]; Protocol Last Admin: 04/28/25 07:17 Dose: 8 unit Levetiracetam (Levetiracetam Oral Soln 500 Mg/5 Ml) 500 mg PO BID [facility] Last Admin: 04/28/25 00:57 Dose: 500 mg Magnesium Hydroxide (Milk Of Magnesia 30 Ml Oral.Susp) 30 ml PO DAILY PRN PRN Reason: Constipation Melatonin (Melatonin 3 Mg Tablet) 6 mg PO BEDTIME PRN PRN Reason: Insomnia Metoprolol Tartrate (Metoprolol Tartrate 50 Mg Tablet) 50 mg PO BID [facility]; Protocol Last Admin: 04/28/25 05:44 Dose: 50 mg Nystatin (Nystatin Powder 15 Gm Bottle) 1 appl TOPICAL BID [facility]; Protocol Omeprazole (Omeprazole/Na Bicarb Oral Susp 20 Mg/10 Ml Ud Cup) 20 mg PO DAILY@0630 [facility] Last Admin: 04/28/25 06:37 Dose: 20 mg Ondansetron HCl (Ondansetron Hcl 4 Mg/2 Ml Vial) 4 mg IVPUSH Q8H PRN PRN Reason: Nausea and Vomiting Oxycodone HCl (Oxycodone Hcl Immed Release 5 Mg Tablet) 5 mg PO Q6H PRN PRN Reason: Pain, Severe (Pain Scale 7-10) Pharmacy Consult (Consult Rx Vancomycin Dosing) 1 each MISCELLANE DAILY PRN PRN Reason: Consult order Sodium Chloride (0.9 % Sodium Chloride Flush 3 Ml Syringe) 3 ml IVFLUSH QSHIFT [facility] Last Admin: 04/28/25 07:18 Dose: 3 ml Tramadol HCl (Tramadol Hcl 50 Mg Tablet) 50 mg PO Q6H PRN PRN Reason: Pain, Moderate(Pain Scale 4-6) Valsartan (Valsartan 160 Mg Tablet) 160 mg PO DAILY@0900 [facility]; Protocol Warfarin Sodium (Warfarin Sodium 4 Mg Tablet) 4 mg PO SuMoWeFrSa@1800 [facility] Warfarin Sodium (Warfarin Sodium 6 Mg Tablet) 6 mg PO TuTh@1800 [facility] Home Medications ?Medication ?Instructions ?Recorded ?Confirmed ?Last Taken ?Type insulin glargine 100 unit/mL (3 26 unit subcut BEDTIME 06/12/24 04/27/25 04/26/25 History mL) subcutaneous pen (Lantus Solostar U-100 Insulin) metoprolol tartrate 50 mg tablet 50 mg PO BID 06/12/24 04/27/25 04/27/25 History valsartan 160 mg tablet 160 mg PO DAILY@0900 06/12/24 04/27/25 04/27/25 History furosemide 20 mg tablet 20 mg PO DAILY 10/31/24 04/27/25 04/27/25 History collagenase clostridium histo. 250 1 appl topical DAILY 04/27/25 04/27/25 Unknown History unit/gram topical ointment (Santyl) insulin lispro 100 unit/mL 12 unit subcut BID@0730,1130 04/27/25 04/27/25 04/27/25 History subcutaneous solution (Humalog U-100 Insulin) insulin lispro 100 unit/mL 16 unit subcut DAILY@1630 04/27/25 04/27/25 04/26/25 History subcutaneous solution (Humalog U-100 Insulin) levetiracetam 500 mg tablet 500 mg PO BID 04/27/25 04/27/25 04/27/25 History nystatin 100,000 unit/gram topical 1 appl topical BID 04/27/25 04/27/25 04/27/25 History powder omeprazole 2 mg-sodium bicarbonate 10 ml PO DAILY 04/27/25 04/27/25 04/27/25 History 84 mg/mL oral suspension (Konvomep) tramadol 50 mg tablet 25 mg PO Q6H PRN pain 04/27/25 04/27/25 Unknown History warfarin 2 mg tablet 4 mg PO SUMOWEFRSA 04/27/25 04/27/25 04/25/25 History warfarin 2 mg tablet 6 mg PO TUTH 04/27/25 04/27/25 04/26/25 History Physical Exam Vital Signs: Vital Signs: Last Vital Signs Temp 97.6 F 04/28/25 07:55 Pulse 98 04/28/25 07:55 Resp 20 04/28/25 07:55 BP 136/71 04/28/25 07:55 Pulse Ox 97 04/28/25 07:55 O2 Del Method Room Air 04/28/25 07:55 BMI result Body Mass Index 24.8 Const: General: comfortable, no acute distress and awake Orientation/consciousness: oriented to person Resp: Effort & Inspection: normal respiratory effort Skin: Other: sacral wound: 4x4x2.5 cm open wound with central slough and necrosis. Tracks deep to palpable bone 2.5 cm No fluctuance. 10x10 cm of surroudning erythema. Neuro: General: oriented to person Results Labs 04/28/25 04:33 04/28/25 04:33 Labs: Abnormal lab results 04/27/25 04/27/25 04/27/25 Range/Units 18:36 20:54 22:21 WBC 15.8 H (4.8-10.8) X10*3/uL RBC 3.95 L (4.20-5.50) X10*6/uL Hgb 8.0 L (12.0-16.0) g/dl Hct 28.0 L (37.0-47.0) % MCV 70.9 L (80.0-98.0) fL MCH 20.3 L (27.0-33.0) pg MCHC 28.6 L (31.0-35.0) g/dl RDW 17.1 H (11.0-16.0) % Plt Count 510 H D (160-400) X10*3/uL MPV (9.4-12.3) fL Immature Gran % (Auto) 0.5 H (0.0-0.4) % Neut % (Auto) 85.6 H (45-73) % Lymph % (Auto) 6.8 L (20-40) % Lymph # (Auto) 1.1 L (1.2-4.9) X10*3/uL Abs Immat Gran (auto) 0.08 H (0.00-0.03) X10*3/uL Absolute Neuts (auto) 13.5 H (2.0-8.3) x10*3/uL PT 25.0 H (11.2-13.5) SEC INR 2.1 H (0.9-1.1) BUN 28 H (9-16) mg/dL POC Glucose 191 H (60-115) mg/dL Random Glucose 199 H (60-115) mg/dL Hemoglobin A1c % 6.5 H (<6.0) % Troponin I High Sens 65.4 H* D 76.1 H* (<3.5-17.0) ng/L Albumin 3.4 L (3.5-5.0) g/dL Ur Specific [place] (1.005-1.025) 04/28/25 04/28/25 04/28/25 Range/Units 04:19 04:33 07:06 WBC 16.2 H (4.8-10.8) X10*3/uL RBC 3.79 L (4.20-5.50) X10*6/uL Hgb 7.8 L (12.0-16.0) g/dl Hct 27.3 L (37.0-47.0) % MCV 72.0 L (80.0-98.0) fL MCH 20.6 L (27.0-33.0) pg MCHC 28.6 L (31.0-35.0) g/dl RDW 17.0 H (11.0-16.0) % Plt Count 424 H (160-400) X10*3/uL MPV 9.3 L (9.4-12.3) fL Immature Gran % (Auto) 0.5 H (0.0-0.4) % Neut % (Auto) 82.4 H (45-73) % Lymph % (Auto) 9.0 L (20-40) % Lymph # (Auto) (1.2-4.9) X10*3/uL Abs Immat Gran (auto) 0.08 H (0.00-0.03) X10*3/uL Absolute Neuts (auto) 13.3 H (2.0-8.3) x10*3/uL PT 25.2 H (11.2-13.5) SEC INR 2.1 H (0.9-1.1) BUN 19 H (9-16) mg/dL POC Glucose 309 H (60-115) mg/dL Random Glucose 233 H (60-115) mg/dL Hemoglobin A1c % (<6.0) % Troponin I High Sens (<3.5-17.0) ng/L Albumin (3.5-5.0) g/dL Ur Specific [place] >= 1.030 H (1.005-1.025) Short CBC 04/27/25 04/28/25 Range/Units 18:36 04:33 WBC 15.8 H 16.2 H (4.8-10.8) X10*3/uL Hgb 8.0 L 7.8 L (12.0-16.0) g/dl Hct 28.0 L 27.3 L (37.0-47.0) % Plt Count 510 H D 424 H (160-400) X10*3/uL BMP 04/27/25 04/28/25 18:36 04:33 Sodium 140 141 Potassium 4.1 3.6 Chloride 104 106 Carbon Dioxide 28 24 BUN 28 H 19 H Creatinine 0.91 0.64 Calcium 9.4 9.1 Liver Function 04/27/25 Range/Units 18:36 Total Bilirubin 0.2 (0.0-1.0) mg/dL Direct Bilirubin < 0.2 (0.0-0.5) mg/dL AST 25 (5-31) U/L ALT 10 (0-31) U/L Alkaline Phosphatase 100 (39-117) U/L Albumin 3.4 L (3.5-5.0) g/dL Urine 04/28/25 Range/Units 04:19 Urine Color Yellow Urine Appearance Clear Urine pH 5.0 (5.0-9.0) Ur Specific [place] >= 1.030 H (1.005-1.025) Urine Protein Trace (Neg-Trace) mg/dL Urine Glucose (UA) Negative (Negative) mg/dL All other labs normal. Assessment and Plan (1) Decubitus ulcer: Qualifiers: Pressure injury location: sacral region Pressure injury stage: stage 4 Qualified Code(s): L89.154 - Pressure ulcer of sacral region, stage 4 Status: Acute Plan 79 year old female with a history of afib, AVR on warfarin, DM, HTN, CVA in December 2024 with a right hemiparesis, seen in consult for necrotic sacral decubitus wound after her visiting nurse advised to be evaluated due to concerns for infection. She was started on IV vanco and zosyn. Unable to obtain adequate history from pt, however she states it does casue some pain. However during exam patient did not appear to react to palpation of the wound and surrounding area. The wound is as above, about 4x4 cm, with 2.5 cm of tracking to bone. There is a central area of necrosis that will need to be debrided. Will attempt bedside sharp debridement this afternoon. Patient seen alongside wound care nurse Kasey, who recommends debridement and dakins solution wet to dry dressings. If patient is unable to tolerate this at bedside, may need to have OR debridement. Continue IV abx Bedside sharp debridement wet to dry dakins after debridment, BID dressing changes Procedures Date of Service Date of Service: 04/28/25 Abscess I/D Site: other (sacral ulcer) Sedation/analgesia: none Technique: other (sharp debridement with morales scissor) Amount of fluid (mL): 5 Packing used?: plain (dakins soaked gauze) Additional comments: Patient was placed in the left lateral decubitus position. Dressings were removed and i began to sharply debride the necrotic tissue using a toothed forcep and morales scissors. this was continued until viable tissue was present. The extent of the wound was seen, showing exposed bone without much tracking away from the wound. Some moderate amounts of slough remained but was unable to debride further. The wound was packed with dakins soaked gauze, covered with dry gauze and foam pad dressing. patient tolerated the procedure well. Remains in stable condition.
--- NOTE | 2025-04-28 10:42 | PC.NURSE ---
Pt noted to be incontinent of stool and urine, pt cleaned, new linens provided and purewick placed. Pt tolerated her meds with no issues this morning
--- NOTE | 2025-04-28 11:04 | PM.CNCAR ---
History of Present Illness History of Present Illness Date of Service: 04/28/25 Chief complaint: sepsis,infected wound Narrative: This is a cardiology consultation regarding atrial fibrillation. Patient speaks minimal Frisian and we used a [place] residential designer for interpretation. However, in spite of this she is not able to really give any further information. 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 Presentation due to fevers/erythema around chronic decubitus ulcer. Per initial notes, patient was nonverbal and not able to provide any history. Per notes, there was concern for atrial fibrillation rapid rate and hence we are consulted. No further information obtainable. Review of Systems Review of Systems: Unable to obtain review of systems. [facility] Past Medical History Medical History Angiectasia AVM (arteriovenous malformation) of colon On warfarin therapy Anemia Breast cancer Diabetes Anticoagulated on Coumadin Hypertension Family History Pertinent family history: Unable to obtain due to mental status Surgical History Surgical History Status post ablation of incompetent vein using laser Heart valve replaced Social History Social History Household Members: Spouse and Children Housing: House Are you a primary aged or disabled carer to a significant other at home: No Do you presently have visiting nurse or other home services: No Alcohol intake: never Patient Tobacco Use Status: Never used Tobacco Smoked in Last 30 Days: No Use of substances other than those prescribed or required for medical reasons: No Advance Directives: Yes Advance Directives on File: Yes Advance Directives Date on File: 07/16/24 Do you have a plan to hurt others: No Plan service: No Meds Allergies Allergy/AdvReac Type Severity Reaction Status Date / Time No Known Allergies Allergy Verified 04/27/25 18:14 Active Medications: Current Medications Amlodipine Besylate (Amlodipine Besylate 5 Mg Tablet) 5 mg PO DAILY [facility]; Protocol Last Admin: 04/28/25 09:28 Dose: 5 mg Aspirin (Aspirin 81 Mg Tab.Chew) 81 mg PO DAILY [facility] Last Admin: 04/28/25 09:28 Dose: 81 mg Atorvastatin Calcium (Atorvastatin Calcium 80 Mg Tablet) 80 mg PO DAILY [facility] Last Admin: 04/28/25 09:28 Dose: 80 mg Calcium Carbonate (Calcium Carbonate 750 Mg Tab.Chew) 750 mg PO Q4H PRN PRN Reason: Heartburn Dextrose (Dextrose 50 % 25 Gm/50 Ml Syringe) 25 gm IVPUSH Q15M PRN; Protocol PRN Reason: per Hypoglycemia Standing Ord. Glucose (Glucose Gel 15 Gm Gel..Gram.) 15 gm PO Q15M PRN; Protocol PRN Reason: per Hypoglycemia Standing Ord. Piperacillin Sod/Tazobactam (Sod 3.375 gm/ Sodium Chloride) 50 mls @ 100 mls/hr IV Q6H [facility] Last Infusion: 04/28/25 10:14 Dose: Infused Vancomycin HCl 1,250 mg/ (Sodium Chloride) 250 mls @ 166.667 mls/hr IV Q24H [facility] Acetaminophen (Ofirmev) 1,000 mg in 100 mls @ 400 mls/hr IV Q6H [facility] Last Infusion: 04/28/25 05:43 Dose: Infused Insulin Human Lispro (Insulin Lispro 100 Unit/Ml 3 Ml Vial) 0 unit SUBCUT QIDACHS [facility]; Protocol Last Admin: 04/28/25 07:17 Dose: 8 unit Levetiracetam (Levetiracetam Oral Soln 500 Mg/5 Ml) 500 mg PO BID [facility] Last Admin: 04/28/25 09:28 Dose: 500 mg Magnesium Hydroxide (Milk Of Magnesia 30 Ml Oral.Susp) 30 ml PO DAILY PRN PRN Reason: Constipation Melatonin (Melatonin 3 Mg Tablet) 6 mg PO BEDTIME PRN PRN Reason: Insomnia Metoprolol Tartrate (Metoprolol Tartrate 50 Mg Tablet) 50 mg PO BID [facility]; Protocol Last Admin: 04/28/25 05:44 Dose: 50 mg Nystatin (Nystatin Powder 15 Gm Bottle) 1 appl TOPICAL BID [facility]; Protocol Last Admin: 04/28/25 10:23 Dose: 1 appl Omeprazole (Omeprazole/Na Bicarb Oral Susp 20 Mg/10 Ml Ud Cup) 20 mg PO DAILY@0630 [facility] Last Admin: 04/28/25 06:37 Dose: 20 mg Ondansetron HCl (Ondansetron Hcl 4 Mg/2 Ml Vial) 4 mg IVPUSH Q8H PRN PRN Reason: Nausea and Vomiting Oxycodone HCl (Oxycodone Hcl Immed Release 5 Mg Tablet) 5 mg PO Q6H PRN PRN Reason: Pain, Severe (Pain Scale 7-10) Pharmacy Consult (Consult Rx Vancomycin Dosing) 1 each MISCELLANE DAILY PRN PRN Reason: Consult order Sodium Chloride (0.9 % Sodium Chloride Flush 3 Ml Syringe) 3 ml IVFLUSH QSHIFT [facility] Last Admin: 04/28/25 07:18 Dose: 3 ml Sodium Hypochlorite (Sodium Hypochlorite 0.125% 473 Ml Solution) 1 appl TOPICAL BID [facility] Tramadol HCl (Tramadol Hcl 50 Mg Tablet) 50 mg PO Q6H PRN PRN Reason: Pain, Moderate(Pain Scale 4-6) Valsartan (Valsartan 160 Mg Tablet) 160 mg PO DAILY@0900 [facility]; Protocol Last Admin: 04/28/25 09:28 Dose: 160 mg Warfarin Sodium (Warfarin Sodium 4 Mg Tablet) 4 mg PO SuMoWeFrSa@1800 [facility] Warfarin Sodium (Warfarin Sodium 6 Mg Tablet) 6 mg PO TuTh@1800 [facility] Home Medications ?Medication ?Instructions ?Recorded ?Confirmed ?Last Taken ?Type insulin glargine 100 unit/mL (3 26 unit subcut BEDTIME 06/12/24 04/27/25 04/26/25 History mL) subcutaneous pen (Lantus Solostar U-100 Insulin) metoprolol tartrate 50 mg tablet 50 mg PO BID 06/12/24 04/27/25 04/27/25 History valsartan 160 mg tablet 160 mg PO DAILY@0900 06/12/24 04/27/25 04/27/25 History furosemide 20 mg tablet 20 mg PO DAILY 10/31/24 04/27/25 04/27/25 History collagenase clostridium histo. 250 1 appl topical DAILY 04/27/25 04/27/25 Unknown History unit/gram topical ointment (Santyl) insulin lispro 100 unit/mL 12 unit subcut BID@0730,1130 04/27/25 04/27/25 04/27/25 History subcutaneous solution (Humalog U-100 Insulin) insulin lispro 100 unit/mL 16 unit subcut DAILY@1630 04/27/25 04/27/25 04/26/25 History subcutaneous solution (Humalog U-100 Insulin) levetiracetam 500 mg tablet 500 mg PO BID 04/27/25 04/27/25 04/27/25 History nystatin 100,000 unit/gram topical 1 appl topical BID 04/27/25 04/27/25 04/27/25 History powder omeprazole 2 mg-sodium bicarbonate 10 ml PO DAILY 04/27/25 04/27/25 04/27/25 History 84 mg/mL oral suspension (Konvomep) tramadol 50 mg tablet 25 mg PO Q6H PRN pain 04/27/25 04/27/25 Unknown History warfarin 2 mg tablet 4 mg PO SUMOWEFRSA 04/27/25 04/27/25 04/25/25 History warfarin 2 mg tablet 6 mg PO TUTH 04/27/25 04/27/25 04/26/25 History Physical Exam Vital Signs: Vital Signs: Last Vital Signs Temp 98.2 F 04/28/25 10:00 Pulse 91 04/28/25 10:00 Resp 18 04/28/25 10:00 BP 121/50 L 04/28/25 10:00 Pulse Ox 95 04/28/25 10:00 O2 Del Method Room Air 04/28/25 10:00 BMI result Body Mass Index 24.8 Const: General: comfortable and no acute distress Orientation/consciousness: patient oriented x3 HEENT: Other: Unremarkable Head: Yes normal to inspection Neck: Neck: Yes normal visual inspection Chest: Chest palpation & inspection: normal inspection of the chest Resp: Auscultation: clear to auscultation bilaterally Cardio: Palpation: normal PMI Heart sounds: S1 normal heart sound present, S2 normal heart sound present, no gallops, Murmur heart sound present systolic III/ and no rubs GI: Palpation (GI): Soft to palpation Back/Spine/Pelvis: Other: unremarkable Skin: General skin exam: no rashes or lesions noted Neuro: General: patient oriented x3 Extrem: General: Yes normal to inspection Psych: Mental Status: mental status grossly normal Objective Labs and Meds 04/28/25 04:33 04/28/25 04:33 Lab results: Laboratory Results - last 24 hr 04/27/25 04/27/25 04/27/25 18:36 20:54 22:21 WBC 15.8 H RBC 3.95 L Hgb 8.0 L Hct 28.0 L MCV 70.9 L MCH 20.3 L MCHC 28.6 L RDW 17.1 H Plt Count 510 H D MPV 10.0 Immature Gran % (Auto) 0.5 H Neut % (Auto) 85.6 H Lymph % (Auto) 6.8 L [place] % (Auto) 6.6 Eos % (Auto) 0.1 Baso % (Auto) 0.4 Lymph # (Auto) 1.1 L [place] # (Auto) 1.0 Eos # (Auto) 0.0 Baso # (Auto) 0.1 Abs Immat Gran (auto) 0.08 H Absolute Neuts (auto) 13.5 H Absolute Nucleated RBC 0.000 Nucleated RBC % (auto) 0.0 PT 25.0 H INR 2.1 H Sodium 140 Potassium 4.1 Chloride 104 Carbon Dioxide 28 Anion Gap 12 BUN 28 H Creatinine 0.91 Estim Creat Clear Calc 44.9 Estimated GFR 60 POC Glucose 191 H Random Glucose 199 H Estimat Average Glucose 140 Hemoglobin A1c % 6.5 H Lactic Acid 1.2 Calcium 9.4 Total Bilirubin 0.2 Direct Bilirubin < 0.2 AST 25 ALT 10 Alkaline Phosphatase 100 Troponin I High Sens 65.4 H* D 76.1 H* Total Protein 7.2 Albumin 3.4 L Lipase 29 Urine Color Urine Appearance Urine pH Ur Specific [place] Urine Protein Urine Glucose (UA) Urine Ketones Urine Blood Urine Nitrite Ur Leukocyte Esterase Influenza Type A (PCR) NEGATIVE Influenza Type B (PCR) NEGATIVE RSV RNA Qual (PCR) NEGATIVE SARS-CoV-2 RNA (RT-PCR) NEGATIVE 04/28/25 04/28/25 04/28/25 01:26 04:19 04:33 WBC 16.2 H RBC 3.79 L Hgb 7.8 L Hct 27.3 L MCV 72.0 L MCH 20.6 L MCHC 28.6 L RDW 17.0 H Plt Count 424 H MPV 9.3 L Immature Gran % (Auto) 0.5 H Neut % (Auto) 82.4 H Lymph % (Auto) 9.0 L [place] % (Auto) 7.2 Eos % (Auto) 0.5 Baso % (Auto) 0.4 Lymph # (Auto) 1.5 [place] # (Auto) 1.2 Eos # (Auto) 0.1 Baso # (Auto) 0.1 Abs Immat Gran (auto) 0.08 H Absolute Neuts (auto) 13.3 H Absolute Nucleated RBC 0.000 Nucleated RBC % (auto) 0.0 PT 25.2 H INR 2.1 H Sodium 141 Potassium 3.6 Chloride 106 Carbon Dioxide 24 Anion Gap 15 BUN 19 H Creatinine 0.64 Estim Creat Clear Calc 63.8 Estimated GFR > 60 POC Glucose Random Glucose 233 H Estimat Average Glucose Hemoglobin A1c % Lactic Acid 1.4 Calcium 9.1 Total Bilirubin Direct Bilirubin AST ALT Alkaline Phosphatase Troponin I High Sens Total Protein Albumin Lipase Urine Color Yellow Urine Appearance Clear Urine pH 5.0 Ur Specific [place] >= 1.030 H Urine Protein Trace Urine Glucose (UA) Negative Urine Ketones Trace Urine Blood Negative Urine Nitrite Negative Ur Leukocyte Esterase Negative Influenza Type A (PCR) Influenza Type B (PCR) RSV RNA Qual (PCR) SARS-CoV-2 RNA (RT-PCR) 04/28/25 07:06 WBC RBC Hgb Hct MCV MCH MCHC RDW Plt Count MPV Immature Gran % (Auto) Neut % (Auto) Lymph % (Auto) [place] % (Auto) Eos % (Auto) Baso % (Auto) Lymph # (Auto) [place] # (Auto) Eos # (Auto) Baso # (Auto) Abs Immat Gran (auto) Absolute Neuts (auto) Absolute Nucleated RBC Nucleated RBC % (auto) PT INR Sodium Potassium Chloride Carbon Dioxide Anion Gap BUN Creatinine Estim Creat Clear Calc Estimated GFR POC Glucose 309 H Random Glucose Estimat Average Glucose Hemoglobin A1c % Lactic Acid Calcium Total Bilirubin Direct Bilirubin AST ALT Alkaline Phosphatase Troponin I High Sens Total Protein Albumin Lipase Urine Color Urine Appearance Urine pH Ur Specific [place] Urine Protein Urine Glucose (UA) Urine Ketones Urine Blood Urine Nitrite Ur Leukocyte Esterase Influenza Type A (PCR) Influenza Type B (PCR) RSV RNA Qual (PCR) SARS-CoV-2 RNA (RT-PCR) ECG Interpretation: The initial EKG, possible atrial flutter but difficult to be sure. Left bundle-branch block pattern. In the later part of the EKG, seems sinus. Assessment and Plan (1) Atrial flutter by electrocardiogram: Status: Acute (2) History of mechanical aortic valve replacement: Status: Acute Plan In the initial EKG, possible atrial flutter based on marching flutter waves the initial beats but difficult to assess. The later part of the EKGs seems to be sinus rhythm. Telemetry difficult to assess. Echocardiogram is currently being completed. Overall, continue metoprolol and he is already on warfarin. Today's INR is 2.1. Target INR could be closer to 2.5. Seems to be also on aspirin. Troponin leak is most likely demand related. No specific significance in this setting. We will review the echocardiogram once completed. Procedures Date of Service Date of Service: 04/28/25
[2025-04-28 11:41] LABS: Glucose, Whole Blood 187 mg/dL (60-115)
--- NOTE | 2025-04-28 11:42 | HO.WOUND ---
Wound Consult: Initial 79 yr old [place] [facility] - See progress notes and H&P for detailed history. Wound consult placed for coccyx. Patient agreeable to assessment and photo documentation. Seen in the ED with SAVANNAH Cherry with surgery. diet therapist present, however patient giving minimal verbal responses to both Khmer and Slovenian. 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 Drainage / Odor: yellow drainage mild odor Edges: ? defined Prasanna wound: ? No Induration, Fluctuance or Warmth noted - redness noted prasanna wound Pain: none Goals of Treatment: ? dakins wet to dry for debridment, odor control, antiseptic properties Recommendations: 1. Turn and Reposition every 2 hours and as needed for patient comfort. Use pillows or wedges to support off loading positions. 2. Off Load all bony prominences with use of pillows and heel boots if needed. Apply Preventative foams where needed. 3. Monitor for incontinence and moisture control, use barrier creams when needed for prevention and treatment. 4. Provide adequate and supplemental nutrition. 5. Order or Continue low air loss mattress. 6. When applicable maintain blood glucose levels per Providers order. Coccyx: cleanse with saline, pat dry, apply dakins moistened gauze (gently pack to wound bed), cover with ABD pad and tape or foam dressing, change BID and PRN Re-consult wound care Nurse for wound deterioration or wound changes.
--- NOTE | 2025-04-28 13:56 | MHC.CM.PN ---
IMM 04/28/25, Pt. lives with her dtr, she is bed bound and non verbal, for DME: hospital bed, mattie lift, is having a specialized w/c made for her. She has home care services from [facility]. Family has applied for [facility] for pt. is waiting to hear back on this. Pt. has a pureed diet. BLS for transport home. DCP; either home or [facility], CM to follow for DC needs.
--- NOTE | 2025-04-28 13:58 | MHC.SL.SWA ---
Speech Pathologist Impression: Mild-Moderate oropharyngeal dysphagia Risk of Aspiration Due to: Current conditions (infection, weakness, etc.) Dysphasia Diet Status: Recommend UPGRADE to NDD2 (ground/mechanical), Thin liquids Liquid Consistency and Strategies for Safe Swallow: Liquid Intake Recommendation: Thin Liquid Intake Strategies: Solid Food Consistency: Dietary Recommendations: Grnd/Mech Altered (NDD2) Additional Modifications to Solid Foods: Oral Medication Intake: Crushed with Puree Please contact the pharmacy regarding appropriate crushable or liquid drug formulations that are available whenever modified delivery is recommended. Compensatory Strategies and Precautions to be Taken for Safe Swallow: Sit Upright Slow feeding rate Small sips/bites Alternate liquids/solids Remain upright after meal (30 minutes) Supervision While Eating and Drinking for Safe Swallow: Total Assistance (1:1) Foods to Avoid: Swallowing Recommended Treatments: Compensatory Strategies Recommendation for Speech: Inpatient Speech Therapy Comment: Patient presents with mild-moderate oropharyngeal dysphagia. Patient's current state, uncomfortable in bed and reporting pain/gas, likely exacerbating current dysphagia. Evaluation translated with use of interpretation cart: Shirin, ID #[id number]. Patient very soft-spoken and lang interpreter having difficulties understanding through ipad. Patient minimally responsive towards HOSPICE VOLUNTEER COORDINATOR's questions, requiring multiple repetitions or patient replying I don't know. Patient with previous hospitalization for stroke in 12/2024; no dysphagia concerns s/p stroke. Seen by HOSPICE VOLUNTEER COORDINATOR inpatient for expressive language concerns only. Patient with no s/sx of penetration/aspiration. Patient trialed thin liquids via cup sip and straw, pureed solids, small piece of saltine. Patient with timely mastication, adequate cohesion and clearance. Patient reported no mastication difficulties with small pieces of saltine. Recommend UPGRADE diet to NDD2 (ground/mechanical), THIN liquids with 1:1 feeding assistance required. CONTINUE medications CRUSHED in puree. HOSPICE VOLUNTEER COORDINATOR to follow. Communicated recommendations with MD, RN, and RD via secure chat. Frequency/Duration: M-F Daily Date Range for Service Req: Timeline to reassess: [place] Supervisor Clinican/Clinical Fellow: No Supervisory Statement: I have reviewed and agree with the student/clinical fellow's documentation: N/A Speech Language Pathologist: Cristina Pollard M.A., CCC-HOSPICE VOLUNTEER COORDINATOR
[2025-04-28 16:26] LABS: Erythrocyte Sedimentation Rate 121 MM/HR (0-20)
--- NOTE | 2025-04-28 17:19 | HO.PM.IMPN ---
Subjective Subjective Date of Service: 04/28/25 Interval History: Pt seen and evaluated in the ED where she is resting comfortably in bed Pt is nonverbal; family at bedside who help provide hx Family reports pt developed atrial fibrillation a few weeks ago at [facility] Pt seen by General surgery with bedside debridement of sacral wound Pt remains tachycardic Review of Systems Review of Systems: Yes Unobtainable due to mental status Physical Exam Exam: Exam: General: Alert, no acute distress Resp: CTA bilaterally CVS: Irregularly irregular, +mechanical click. Tachycardic GI: +BS, NT, no distention Skin: Warm, dry. decubitus ulcer- necrotic wound with surrounding erythema, see photo in admission HPI Neuro: Cranial nerves II-XII grossly intact bilaterally. Motor grossly intact bilaterally Extremities: No pitting edema Psych: Appropriate affect Vital Signs: Vital Signs: Last Vital Signs Temp 98.4 F 04/28/25 15:37 Pulse 113 H 04/28/25 15:37 Resp 18 04/28/25 15:37 BP 123/48 L 04/28/25 15:37 Pulse Ox 98 04/28/25 15:37 O2 Del Method Room Air 04/28/25 15:37 BMI result Body Mass Index 24.8 Objective Data Active Medications Amlodipine Besylate (Amlodipine Besylate 5 Mg Tablet) 5 mg PO DAILY [facility]; Protocol Last Admin: 04/28/25 09:28 Dose: 5 mg Documented By: JOHN Aspirin (Aspirin 81 Mg Tab.Chew) 81 mg PO DAILY [facility] Last Admin: 04/28/25 09:28 Dose: 81 mg Documented By: JOHN Atorvastatin Calcium (Atorvastatin Calcium 80 Mg Tablet) 80 mg PO DAILY [facility] Last Admin: 04/28/25 09:28 Dose: 80 mg Documented By: JOHN Calcium Carbonate (Calcium Carbonate 750 Mg Tab.Chew) 750 mg PO Q4H PRN PRN Reason: Heartburn Dextrose (Dextrose 50 % 25 Gm/50 Ml Syringe) 25 gm IVPUSH Q15M PRN; Protocol PRN Reason: per Hypoglycemia Standing Ord. Glucose (Glucose Gel 15 Gm Gel..Gram.) 15 gm PO Q15M PRN; Protocol PRN Reason: per Hypoglycemia Standing Ord. Piperacillin Sod/Tazobactam (Sod 3.375 gm/ Sodium Chloride) 50 mls @ 100 mls/hr IV Q6H [facility] Last Infusion: 04/28/25 16:48 Dose: Infused Documented By: RASHARD Vancomycin HCl 1,250 mg/ (Sodium Chloride) 250 mls @ 166.667 mls/hr IV Q24H [facility] Acetaminophen (Ofirmev) 1,000 mg in 100 mls @ 400 mls/hr IV Q6H [facility] Last Infusion: 04/28/25 11:50 Dose: Infused Documented By: RASHARD Insulin Human Lispro (Insulin Lispro 100 Unit/Ml 3 Ml Vial) 0 unit SUBCUT QIDACHS [facility]; Protocol Last Admin: 04/28/25 12:45 Dose: 2 unit Documented By: RASHARD Levetiracetam (Levetiracetam Oral Soln 500 Mg/5 Ml) 500 mg PO BID [facility] Last Admin: 04/28/25 09:28 Dose: 500 mg Documented By: JOHN Magnesium Hydroxide (Milk Of Magnesia 30 Ml Oral.Susp) 30 ml PO DAILY PRN PRN Reason: Constipation Melatonin (Melatonin 3 Mg Tablet) 6 mg PO BEDTIME PRN PRN Reason: Insomnia Metoprolol Tartrate (Metoprolol Tartrate 50 Mg Tablet) 50 mg PO BID [facility]; Protocol Last Admin: 04/28/25 05:44 Dose: 50 mg Documented By: CARLYLE Comments: give morning dose now per provider for elevated HR Nystatin (Nystatin Powder 15 Gm Bottle) 1 appl TOPICAL BID [facility]; Protocol Last Admin: 04/28/25 10:23 Dose: 1 appl Documented By: JOHN Omeprazole (Omeprazole/Na Bicarb Oral Susp 20 Mg/10 Ml Ud Cup) 20 mg PO DAILY@0630 [facility] Last Admin: 04/28/25 06:37 Dose: 20 mg Documented By: CARLYLE Ondansetron HCl (Ondansetron Hcl 4 Mg/2 Ml Vial) 4 mg IVPUSH Q8H PRN PRN Reason: Nausea and Vomiting Oxycodone HCl (Oxycodone Hcl Immed Release 5 Mg Tablet) 5 mg PO Q6H PRN PRN Reason: Pain, Severe (Pain Scale 7-10) Pharmacy Consult (Consult Rx Vancomycin Dosing) 1 each MISCELLANE DAILY PRN PRN Reason: Consult order Sodium Chloride (0.9 % Sodium Chloride Flush 3 Ml Syringe) 3 ml IVFLUSH QSHIFT [facility] Last Admin: 04/28/25 15:51 Dose: Not Given Documented By: RASHARD Non-Admin Reason: IV Running Sodium Hypochlorite (Sodium Hypochlorite 0.125% 473 Ml Solution) 1 appl TOPICAL BID [facility] Last Admin: 04/28/25 10:30 Dose: 1 appl Documented By: RASHARD Tramadol HCl (Tramadol Hcl 50 Mg Tablet) 50 mg PO Q6H PRN PRN Reason: Pain, Moderate(Pain Scale 4-6) Valsartan (Valsartan 160 Mg Tablet) 160 mg PO DAILY@0900 [facility]; Protocol Last Admin: 04/28/25 09:28 Dose: 160 mg Documented By: JOHN Warfarin Sodium (Warfarin Sodium 4 Mg Tablet) 4 mg PO SuMoWeFrSa@1800 [facility] Warfarin Sodium (Warfarin Sodium 6 Mg Tablet) 6 mg PO TuTh@1800 [facility] Labs 04/28/25 04:33 04/28/25 04:33 Labs: Laboratory Results - last 24 hr 04/27/25 04/27/25 04/27/25 18:36 20:54 22:21 MCV 70.9 L MCH 20.3 L MCHC 28.6 L RDW 17.1 H Plt Count 510 H D MPV 10.0 Immature Gran % (Auto) 0.5 H Neut % (Auto) 85.6 H Lymph % (Auto) 6.8 L [place] % (Auto) 6.6 Eos % (Auto) 0.1 Baso % (Auto) 0.4 Lymph # (Auto) 1.1 L [place] # (Auto) 1.0 Eos # (Auto) 0.0 Baso # (Auto) 0.1 Abs Immat Gran (auto) 0.08 H Absolute Neuts (auto) 13.5 H Absolute Nucleated RBC 0.000 Nucleated RBC % (auto) 0.0 ESR PT 25.0 H INR 2.1 H Anion Gap 12 Estim Creat Clear Calc 44.9 Estimated GFR 60 POC Glucose 191 H Random Glucose 199 H Estimat Average Glucose 140 Hemoglobin A1c % 6.5 H Lactic Acid 1.2 Calcium 9.4 Total Bilirubin 0.2 Direct Bilirubin < 0.2 AST 25 ALT 10 Alkaline Phosphatase 100 Troponin I High Sens 65.4 H* D 76.1 H* C-Reactive Protein Total Protein 7.2 Albumin 3.4 L Lipase 29 Urine Color Urine Appearance Urine pH Ur Specific [place] Urine Protein Urine Glucose (UA) Urine Ketones Urine Blood Urine Nitrite Ur Leukocyte Esterase Influenza Type A (PCR) NEGATIVE Influenza Type B (PCR) NEGATIVE RSV RNA Qual (PCR) NEGATIVE SARS-CoV-2 RNA (RT-PCR) NEGATIVE 04/28/25 04/28/25 04/28/25 01:26 04:19 04:33 MCV 72.0 L MCH 20.6 L MCHC 28.6 L RDW 17.0 H Plt Count 424 H MPV 9.3 L Immature Gran % (Auto) 0.5 H Neut % (Auto) 82.4 H Lymph % (Auto) 9.0 L [place] % (Auto) 7.2 Eos % (Auto) 0.5 Baso % (Auto) 0.4 Lymph # (Auto) 1.5 [place] # (Auto) 1.2 Eos # (Auto) 0.1 Baso # (Auto) 0.1 Abs Immat Gran (auto) 0.08 H Absolute Neuts (auto) 13.3 H Absolute Nucleated RBC 0.000 Nucleated RBC % (auto) 0.0 ESR 121 H PT 25.2 H INR 2.1 H Anion Gap 15 Estim Creat Clear Calc 63.8 Estimated GFR > 60 POC Glucose Random Glucose 233 H Estimat Average Glucose Hemoglobin A1c % Lactic Acid 1.4 Calcium 9.1 Total Bilirubin Direct Bilirubin AST ALT Alkaline Phosphatase Troponin I High Sens C-Reactive Protein 12.84 H Total Protein Albumin Lipase Urine Color Yellow Urine Appearance Clear Urine pH 5.0 Ur Specific [place] >= 1.030 H Urine Protein Trace Urine Glucose (UA) Negative Urine Ketones Trace Urine Blood Negative Urine Nitrite Negative Ur Leukocyte Esterase Negative Influenza Type A (PCR) Influenza Type B (PCR) RSV RNA Qual (PCR) SARS-CoV-2 RNA (RT-PCR) 04/28/25 04/28/25 07:06 11:36 MCV MCH MCHC RDW Plt Count MPV Immature Gran % (Auto) Neut % (Auto) Lymph % (Auto) [place] % (Auto) Eos % (Auto) Baso % (Auto) Lymph # (Auto) [place] # (Auto) Eos # (Auto) Baso # (Auto) Abs Immat Gran (auto) Absolute Neuts (auto) Absolute Nucleated RBC Nucleated RBC % (auto) ESR PT INR Anion Gap Estim Creat Clear Calc Estimated GFR POC Glucose 309 H 187 H Random Glucose Estimat Average Glucose Hemoglobin A1c % Lactic Acid Calcium Total Bilirubin Direct Bilirubin AST ALT Alkaline Phosphatase Troponin I High Sens C-Reactive Protein Total Protein Albumin Lipase Urine Color Urine Appearance Urine pH Ur Specific [place] Urine Protein Urine Glucose (UA) Urine Ketones Urine Blood Urine Nitrite Ur Leukocyte Esterase Influenza Type A (PCR) Influenza Type B (PCR) RSV RNA Qual (PCR) SARS-CoV-2 RNA (RT-PCR) Assessment and Plan (1) Infected decubitus ulcer: Status: Acute Plan Patient is a 79-year-old female with a past medical history significant for chronic decubitus ulcer, hypertension, type 2 diabetes, hyperlipidemia, HFpEF, mechanical aortic valve replacement on warfarin, 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 Sepsis secondary to infected decubitus ulcer with osteomyelitis on CT - elevated ESR 121 and [employer]IFIC[employer] 12.84 - Zosyn and vancomycin, day 2 - general surgery and ID consults - general surgery performed bedside debridement - wound care consulted, recommend Dakin solution wet-to-dry dressings, cover with dry gauze and foam dressing - will hold off on MRI pending ID input - monitor CBC and BMP elevated troponin - EKG with a fib/RVR, rate normalized now - trop 65.4, flat at 76.1, likely type 2 in the setting of increased demand - tele - cardiology consult - on warfarin for mechanical valve - echo AFib w/RVR - daughter at bedside report pt noted to first be in AFib a few weeks ago at [facility] - pt on warfarin for mechanical aortic valve - INR 2.1, goal closer to 2.5 - tele - continue warfarin, metoprolol - cardiology following Hypertension - metorpolol, valsartan, amlodipine HLD - continue home meds T2 dm - sliding scale insulin - hold metformin - Lantus daily HFpEF, no acute exacerbation - hold Lasix due to sepsis, resume after 24 hours if BP normal Mechanical aortic valve replacement - warfarin - monitor PT/INR History CVA ?seizures - keppra - puree diet - no formal DRAFTER GEOLOGICAL evaluation here, DRAFTER GEOLOGICAL eval placed to ensure correct diet DNR/DNI, son confirmed change in status VTE prophy: warfarin Pt will require continued hospitalization due to need for IV antibiotics for infected and necrotic sacral decubitus ulcer concerning for acute osteomyelitis. Quality Stroke Does the patient have a stroke diagnosis?: No VTE Prior VTE?: No VTE Risk Level:: Medical - moderate - high VTE Device Contraindication: Treatment Not Indicated VTE Drug Contraindication: N/A - Med Ordered
[2025-04-28 17:58] LABS: Glucose, Whole Blood 336 mg/dL (60-115)
--- NOTE | 2025-04-28 23:27 | W.PM.IDCN ---
History of Present Illness Data of Consult Service Date: 04/28/25 Requesting physician: Bhanu Mckay Primary Care Provider: Paco Schuler MD [facility] Reason for consult: OM posterior coccyx She presents with increased drainage and odor posterior coccyx. She has temperature 101.2 and pulse 108. She has redness around coccyx area also. Review of Systems Review of Systems: Yes Unobtainable due to mental condition PMFSH Past Medical History Medical History Angiectasia AVM (arteriovenous malformation) of colon On warfarin therapy Anemia Breast cancer Diabetes Anticoagulated on Coumadin Hypertension Family History Family history: reviewed and not pertinent Surgical History Surgical History Status post ablation of incompetent vein using laser Heart valve replaced Social History Social History Household Members: Family and Children Housing: House Are you a primary child care nurse to a significant other at home: No Do you presently have visiting nurse or other home services: Yes Alcohol intake: never Patient Tobacco Use Status: Never used Tobacco Advance Directives Date on File: 07/16/24 service: No Meds Allergies Allergy/AdvReac Type Severity Reaction Status Date / Time No Known Allergies Allergy Verified 04/27/25 18:14 Active Medications: Current Medications Amlodipine Besylate (Amlodipine Besylate 5 Mg Tablet) 5 mg PO DAILY [facility]; Protocol Last Admin: 04/28/25 09:28 Dose: 5 mg Aspirin (Aspirin 81 Mg Tab.Chew) 81 mg PO DAILY [facility] Last Admin: 04/28/25 09:28 Dose: 81 mg Atorvastatin Calcium (Atorvastatin Calcium 80 Mg Tablet) 80 mg PO DAILY [facility] Last Admin: 04/28/25 09:28 Dose: 80 mg Calcium Carbonate (Calcium Carbonate 750 Mg Tab.Chew) 750 mg PO Q4H PRN PRN Reason: Heartburn Dextrose (Dextrose 50 % 25 Gm/50 Ml Syringe) 25 gm IVPUSH Q15M PRN; Protocol PRN Reason: per Hypoglycemia Standing Ord. Glucose (Glucose Gel 15 Gm Gel..Gram.) 15 gm PO Q15M PRN; Protocol PRN Reason: per Hypoglycemia Standing Ord. Piperacillin Sod/Tazobactam (Sod 3.375 gm/ Sodium Chloride) 50 mls @ 100 mls/hr IV Q6H [facility] Last Admin: 04/28/25 22:41 Dose: 100 mls/hr Vancomycin HCl 1,250 mg/ (Sodium Chloride) 250 mls @ 166.667 mls/hr IV Q24H [facility] Last Admin: 04/28/25 22:41 Dose: 166.67 mls/hr Acetaminophen (Ofirmev) 1,000 mg in 100 mls @ 400 mls/hr IV Q6H [facility] Last Admin: 04/28/25 23:11 Dose: 400 mls/hr Insulin Human Lispro (Insulin Lispro 100 Unit/Ml 3 Ml Vial) 0 unit SUBCUT QIDACHS [facility]; Protocol Last Admin: 04/28/25 22:40 Dose: 2 unit Levetiracetam (Levetiracetam Oral Soln 500 Mg/5 Ml) 500 mg PO BID [facility] Last Admin: 04/28/25 22:40 Dose: 500 mg Magnesium Hydroxide (Milk Of Magnesia 30 Ml Oral.Susp) 30 ml PO DAILY PRN PRN Reason: Constipation Melatonin (Melatonin 3 Mg Tablet) 6 mg PO BEDTIME PRN PRN Reason: Insomnia Metoprolol Tartrate (Metoprolol Tartrate 50 Mg Tablet) 50 mg PO BID [facility]; Protocol Last Admin: 04/28/25 22:40 Dose: 50 mg Nystatin (Nystatin Powder 15 Gm Bottle) 1 appl TOPICAL BID [facility]; Protocol Last Admin: 04/28/25 10:23 Dose: 1 appl Omeprazole (Omeprazole/Na Bicarb Oral Susp 20 Mg/10 Ml Ud Cup) 20 mg PO DAILY@0630 [facility] Last Admin: 04/28/25 06:37 Dose: 20 mg Ondansetron HCl (Ondansetron Hcl 4 Mg/2 Ml Vial) 4 mg IVPUSH Q8H PRN PRN Reason: Nausea and Vomiting Oxycodone HCl (Oxycodone Hcl Immed Release 5 Mg Tablet) 5 mg PO Q6H PRN PRN Reason: Pain, Severe (Pain Scale 7-10) Pharmacy Consult (Consult Rx Vancomycin Dosing) 1 each MISCELLANE DAILY PRN PRN Reason: Consult order Sodium Chloride (0.9 % Sodium Chloride Flush 3 Ml Syringe) 3 ml IVFLUSH QSHIFT [facility] Last Admin: 04/28/25 22:41 Dose: 3 ml Sodium Hypochlorite (Sodium Hypochlorite 0.125% 473 Ml Solution) 1 appl TOPICAL BID [facility] Last Admin: 04/28/25 10:30 Dose: 1 appl Tramadol HCl (Tramadol Hcl 50 Mg Tablet) 50 mg PO Q6H PRN PRN Reason: Pain, Moderate(Pain Scale 4-6) Valsartan (Valsartan 160 Mg Tablet) 160 mg PO DAILY@0900 [facility]; Protocol Last Admin: 04/28/25 09:28 Dose: 160 mg Warfarin Sodium (Warfarin Sodium 4 Mg Tablet) 4 mg PO SuMoWeFrSa@1800 [facility] Warfarin Sodium (Warfarin Sodium 6 Mg Tablet) 6 mg PO TuTh@1800 [facility] Last Admin: 04/28/25 18:02 Dose: 6 mg Home Medications ?Medication ?Instructions ?Recorded ?Confirmed ?Last Taken ?Type insulin glargine 100 unit/mL (3 26 unit subcut BEDTIME 06/12/24 04/27/25 04/26/25 History mL) subcutaneous pen (Lantus Solostar U-100 Insulin) metoprolol tartrate 50 mg tablet 50 mg PO BID 06/12/24 04/27/25 04/27/25 History valsartan 160 mg tablet 160 mg PO DAILY@0900 06/12/24 04/27/25 04/27/25 History furosemide 20 mg tablet 20 mg PO DAILY 10/31/24 04/27/25 04/27/25 History collagenase clostridium histo. 250 1 appl topical DAILY 04/27/25 04/27/25 Unknown History unit/gram topical ointment (Santyl) insulin lispro 100 unit/mL 12 unit subcut BID@0730,1130 04/27/25 04/27/25 04/27/25 History subcutaneous solution (Humalog U-100 Insulin) insulin lispro 100 unit/mL 16 unit subcut DAILY@1630 04/27/25 04/27/25 04/26/25 History subcutaneous solution (Humalog U-100 Insulin) levetiracetam 500 mg tablet 500 mg PO BID 04/27/25 04/27/25 04/27/25 History nystatin 100,000 unit/gram topical 1 appl topical BID 04/27/25 04/27/25 04/27/25 History powder omeprazole 2 mg-sodium bicarbonate 10 ml PO DAILY 04/27/25 04/27/25 04/27/25 History 84 mg/mL oral suspension (Konvomep) tramadol 50 mg tablet 25 mg PO Q6H PRN pain 04/27/25 04/27/25 Unknown History warfarin 2 mg tablet 4 mg PO SUMOWEFRSA 04/27/25 04/27/25 04/25/25 History warfarin 2 mg tablet 6 mg PO TUTH 04/27/25 04/27/25 04/26/25 History Physical Exam Vital Signs: Vital Signs: Last Vital Signs Temp 97.5 F 04/28/25 19:02 Pulse 108 H 04/28/25 19:02 Resp 16 04/28/25 19:02 BP 120/55 L 04/28/25 19:02 Pulse Ox 94 04/28/25 19:02 O2 Del Method Room Air 04/28/25 19:02 BMI result Body Mass Index 24.8 Const: General: cooperative HEENT: Head: Yes normal to inspection Face and sinus: Yes normal facial exam Mouth: Normal oral and palatal mucosa present Teeth and gingiva: dentition normal Eyes: General: appearance normal, both eyes and all related structures Pupils: Equal, round and reactive pupils present Resp: Effort & Inspection: normal respiratory effort Cardio: Rate: regular rate Rhythm: regular rhythm GI: Palpation (GI): Soft to palpation and nontender : General: Yes no CVA tenderness Back/Spine/Pelvis: Back: no CVA tenderness Skin: General skin exam: no rashes or lesions noted Neuro: General: moves all extremities Cranial nerves: Yes Equal, round and reactive pupils present Extrem: Other: large decubitus ulcer General: Yes normal to inspection Psych: Other: somonolent Results Labs 04/28/25 04:33 04/28/25 04:33 Labs: Short CBC 04/28/25 Range/Units 04:33 WBC 16.2 H (4.8-10.8) X10*3/uL Hgb 7.8 L (12.0-16.0) g/dl Hct 27.3 L (37.0-47.0) % Plt Count 424 H (160-400) X10*3/uL BMP 04/28/25 04:33 Sodium 141 Potassium 3.6 Chloride 106 Carbon Dioxide 24 BUN 19 H Creatinine 0.64 Calcium 9.1 Urine 04/28/25 Range/Units 04:19 Urine Color Yellow Urine Appearance Clear Urine pH 5.0 (5.0-9.0) Ur Specific [place] >= 1.030 H (1.005-1.025) Urine Protein Trace (Neg-Trace) mg/dL Urine Glucose (UA) Negative (Negative) mg/dL Microbiology Microbiology Results: Microbiology 04/27/25 18:36 Blood - Venous Blood Culture - Preliminary No growth after 24 hours. 04/27/25 18:36 Blood - Venous Blood Culture - Preliminary No growth after 24 hours. Assessment and Plan (1) Osteomyelitis: Status: Acute Plan 6 weeks IV Daptomycin and Ertapem only if plan to use Plastic Surgery to help close open area.
[2025-04-29 03:06] VITALS: BP 117/58; PULSE 86; RESP 18; TEMP 36.6; O2SAT 94
[2025-04-29] MEDS: Omeprazole/Na Bicarb Oral Susp 20 MG/10 ML UD Cup PO (06:24)
--- NOTE | 2025-04-29 06:35 | PC.NURSE ---
dakin's/nystatin found to be not available after closing of house pharmacy. areas cleaned, dried. coccyx wound cleaned with saline then patted dry, damp saline gauze placed over area. saline gauze changed this AM, gauze appears covered in small/moderate amount of yellow/de la cruz drainage. voyce spanish interpreter/translator in Barbadian utilized, patient remains alert, calm, cooperative with care. able to verbalize yes occasionally. fall prx remain, plan of care ongoing
[2025-04-29 06:54] LABS: MANUAL DIFF FLAG NO
[2025-04-29 06:56] LABS: Hematocrit 25.3 % (37.0-47.0); Hemoglobin 7.1 g/dl (12.0-16.0); Imm Gran Abs Auto 0.06 X10*3/uL (0.00-0.03); Imm Gran Pct Auto 0.4 % (0.0-0.4); Lymphocytes Absolute Auto 0.8 X10*3/uL (1.2-4.9); Mean Corpuscular HGB Conc 28.1 g/dl (31.0-35.0); Mean Corpuscular Hemoglobin 20.8 pg (27.0-33.0); Mean Corpuscular Volume 74.2 fL (80.0-98.0); NRBC Abs Auto 0.000 X10*3/uL (0.0-0.012); NRBC Pct Auto 0.0 /100WBC (0.0-0.2); Platelet Count 373 X10*3/uL (160-400); Red Blood Count 3.41 X10*6/uL (4.20-5.50); White Blood Count 13.7 X10*3/uL (4.8-10.8)
[2025-04-29 07:05] LABS: INTERNATIONAL NORM RATIO 4.8 (0.9-1.1); Prothrombin Time 56.4 SEC (11.2-13.5)
[2025-04-29 07:35] LABS: Anion Gap 13 (12-20); Blood Urea Nitrogen 22 mg/dL (9-16); Calcium 8.8 mg/dL (8.4-10.2); Carbon Dioxide 26 mmol/L (22-29); Chloride 110 mmol/L (96-108); Creatinine Clr Calc Pharmacy 63.8; Estimated Glomerular Filt Rate > 60; Potassium 2.9 mmol/L (3.3-5.1); Sodium 146 mmol/L (135-145)
[2025-04-29 07:36] LABS: Glucose, Whole Blood 170 mg/dL (60-115)
[2025-04-29 08:00] VITALS: BP 108/52; PULSE 84; RESP 17; TEMP 36.7; O2SAT 91
--- NOTE | 2025-04-29 08:06 | PM.PNGS ---
Subjective Subjective Date of Service: 04/29/25 Interval history: Minimally interactive during evaluation. Upper Sorbian japanese interpreter used during this evaluation Physical Exam Vital Signs: Vital Signs: Last Vital Signs Temp 97.8 F 04/29/25 03:06 Pulse 86 04/29/25 03:06 Resp 18 04/29/25 03:06 BP 117/58 L 04/29/25 03:06 Pulse Ox 94 04/29/25 03:06 O2 Del Method Room Air 04/29/25 03:06 BMI result Body Mass Index 24.8 Const: General: comfortable and no acute distress Resp: Effort & Inspection: normal respiratory effort Skin: Other: Sacral decubitus wound: 4 x 4 cm, 2.5 cm deep tracking to bone. Improvement in tissue since debridement, most of the wound base is slough with some remaining necrosis but unable to debride further. Bone is palpable in the deep space of the wound. Nontender some improvement in surrounding erythema. Objective Data Active Medications Amlodipine Besylate (Amlodipine Besylate 5 Mg Tablet) 5 mg PO DAILY [facility]; Protocol Last Admin: 04/28/25 09:28 Dose: 5 mg Documented By: JOHN Aspirin (Aspirin 81 Mg Tab.Chew) 81 mg PO DAILY [facility] Last Admin: 04/28/25 09:28 Dose: 81 mg Documented By: JOHN Atorvastatin Calcium (Atorvastatin Calcium 80 Mg Tablet) 80 mg PO DAILY [facility] Last Admin: 04/28/25 09:28 Dose: 80 mg Documented By: JOHN Calcium Carbonate (Calcium Carbonate 750 Mg Tab.Chew) 750 mg PO Q4H PRN PRN Reason: Heartburn Dextrose (Dextrose 50 % 25 Gm/50 Ml Syringe) 25 gm IVPUSH Q15M PRN; Protocol PRN Reason: per Hypoglycemia Standing Ord. Glucose (Glucose Gel 15 Gm Gel..Gram.) 15 gm PO Q15M PRN; Protocol PRN Reason: per Hypoglycemia Standing Ord. Piperacillin Sod/Tazobactam (Sod 3.375 gm/ Sodium Chloride) 50 mls @ 100 mls/hr IV Q6H [facility] Last Infusion: 04/29/25 04:57 Dose: Infused Documented By: NEREYDA Vancomycin HCl 1,250 mg/ (Sodium Chloride) 250 mls @ 166.667 mls/hr IV Q24H [facility] Last Infusion: 04/29/25 01:00 Dose: Infused Documented By: NEREYDA Acetaminophen (Ofirmev) 1,000 mg in 100 mls @ 400 mls/hr IV Q6H [facility] Last Infusion: 04/29/25 04:56 Dose: Infused Documented By: NEREYDA Potassium Chloride (Potassium Chloride/H20) 10 meq in 100 mls @ 100 mls/hr IV Q1H [facility] Stop: 04/29/25 11:44 Insulin Human Lispro (Insulin Lispro 100 Unit/Ml 3 Ml Vial) 0 unit SUBCUT QIDACHS [facility]; Protocol Last Admin: 04/28/25 22:40 Dose: 2 unit Documented By: NEREYDA Levetiracetam (Levetiracetam Oral Soln 500 Mg/5 Ml) 500 mg PO BID [facility] Last Admin: 04/28/25 22:40 Dose: 500 mg Documented By: NEREYDA Magnesium Hydroxide (Milk Of Magnesia 30 Ml Oral.Susp) 30 ml PO DAILY PRN PRN Reason: Constipation Melatonin (Melatonin 3 Mg Tablet) 6 mg PO BEDTIME PRN PRN Reason: Insomnia Metoprolol Tartrate (Metoprolol Tartrate 50 Mg Tablet) 50 mg PO BID [facility]; Protocol Last Admin: 04/28/25 22:40 Dose: 50 mg Documented By: NEREYDA Nystatin (Nystatin Powder 15 Gm Bottle) 1 appl TOPICAL BID [facility]; Protocol Last Admin: 04/29/25 00:16 Dose: Not Given Documented By: NEREYDA Non-Admin Reason: Med Not Available Omeprazole (Omeprazole/Na Bicarb Oral Susp 20 Mg/10 Ml Ud Cup) 20 mg PO DAILY@0630 [facility] Last Admin: 04/29/25 06:24 Dose: 20 mg Documented By: NEREYDA Ondansetron HCl (Ondansetron Hcl 4 Mg/2 Ml Vial) 4 mg IVPUSH Q8H PRN PRN Reason: Nausea and Vomiting Last Admin: 04/29/25 04:27 Dose: 4 mg Documented By: NEREYDA Oxycodone HCl (Oxycodone Hcl Immed Release 5 Mg Tablet) 5 mg PO Q6H PRN PRN Reason: Pain, Severe (Pain Scale 7-10) Pharmacy Consult (Consult Rx Vancomycin Dosing) 1 each MISCELLANE DAILY PRN PRN Reason: Consult order Sodium Chloride (0.9 % Sodium Chloride Flush 3 Ml Syringe) 3 ml IVFLUSH QSHIFT [facility] Last Admin: 04/28/25 22:41 Dose: 3 ml Documented By: NEREYDA Sodium Hypochlorite (Sodium Hypochlorite 0.125% 473 Ml Solution) 1 appl TOPICAL BID [facility] Last Admin: 04/29/25 00:16 Dose: Not Given Documented By: NEREYDA Non-Admin Reason: Med Not Available Tramadol HCl (Tramadol Hcl 50 Mg Tablet) 50 mg PO Q6H PRN PRN Reason: Pain, Moderate(Pain Scale 4-6) Last Admin: 04/29/25 06:21 Dose: 50 mg Documented By: NEREYDA Valsartan (Valsartan 160 Mg Tablet) 160 mg PO DAILY@0900 [facility]; Protocol Last Admin: 04/28/25 09:28 Dose: 160 mg Documented By: JOHN Warfarin Sodium (Warfarin Sodium 4 Mg Tablet) 4 mg PO SuMoWeFrSa@1800 [facility] Warfarin Sodium (Warfarin Sodium 6 Mg Tablet) 6 mg PO TuTh@1800 [facility] Last Admin: 04/28/25 18:02 Dose: 6 mg Documented By: WILLIAM Labs 04/29/25 06:46 04/29/25 06:46 Labs: Laboratory Results - last 24 hr 04/28/25 04/28/25 04/28/25 04:33 11:36 17:54 MCV MCH MCHC RDW Plt Count MPV Immature Gran % (Auto) Neut % (Auto) Lymph % (Auto) [place] % (Auto) Eos % (Auto) Baso % (Auto) Lymph # (Auto) [place] # (Auto) Eos # (Auto) Baso # (Auto) Abs Immat Gran (auto) Absolute Neuts (auto) Absolute Nucleated RBC Nucleated RBC % (auto) ESR 121 H PT INR Anion Gap Estim Creat Clear Calc Estimated GFR POC Glucose 187 H 336 H Random Glucose Calcium C-Reactive Protein 12.84 H 04/28/25 04/29/25 04/29/25 22:33 06:46 07:32 MCV 74.2 L MCH 20.8 L MCHC 28.1 L RDW 16.9 H Plt Count 373 MPV 9.6 Immature Gran % (Auto) 0.4 Neut % (Auto) 86.8 H Lymph % (Auto) 5.5 L [place] % (Auto) 5.5 Eos % (Auto) 1.4 Baso % (Auto) 0.4 Lymph # (Auto) 0.8 L [place] # (Auto) 0.8 Eos # (Auto) 0.2 Baso # (Auto) 0.1 Abs Immat Gran (auto) 0.06 H Absolute Neuts (auto) 11.9 H Absolute Nucleated RBC 0.000 Nucleated RBC % (auto) 0.0 ESR PT 56.4 H D INR 4.8 H D Anion Gap 13 Estim Creat Clear Calc 63.8 Estimated GFR > 60 POC Glucose 195 H 170 H Random Glucose 175 H Calcium 8.8 C-Reactive Protein Microbiology Microbiology Results: Microbiology 04/27/25 18:36 Blood Culture - Preliminary Blood - Venous Prelim: GPC Gram Stain only 04/27/25 18:36 Blood Culture - Preliminary Blood - Venous No growth after 24 hours. 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 Unable to obtain adequate history from pt, however she states it does casue some pain. However during exam patient did not appear to react to palpation of the wound and surrounding area. The wound is as above, about 4x4 cm, with 2.5 cm of tracking to bone. There was improvement in the wound after the debridement at the bedside yesterday. However there still remains adherent slough and some necrotic tissue on the wound base. There was notable improvement in some of the surrounding erythema. I redressed the wound this morning, unfortunately the Dakin's solution was not available at this time so I today wet-to-dry dressing with normal saline. discussed with patient's nurse who will perform afternoon dressing change with Dakin soaked gauze, dry gauze, foam sacral pad. Would continue this twice daily per wound care recommendations Continue IV abx wet to dry dakins after debridment, BID dressing changes Time Spent With Patient Time: Total time managing care of this patient today ____ minutes. Quality Stroke Does the patient have a stroke diagnosis?: No VTE Prior VTE?: No VTE Risk Level:: Medical - moderate - high VTE Device Contraindication: Treatment Not Indicated VTE Drug Contraindication: N/A - Med Ordered
[2025-04-29] MEDS: Potassium Chloride/H20 10 MEQ/100 ML PIGGYBACK 100 MEQ IV ×4 (08:19→13:01)
[2025-04-29] MEDS: levETIRAcetam Oral Soln 500 MG/5 ML PO ×2 (08:25→22:11)
[2025-04-29] MEDS: 0.9 % Sodium Chloride Flush 3 ML SYRINGE IVFLUSH ×2 (08:57→23:59)
[2025-04-29 11:13] VITALS: BMI 24.8
--- NOTE | 2025-04-29 11:16 | MHC.CLN ---
PT WITH INCREASED NUTRITION RISK R/T PRESSURE INJURY PO INTAKE 50% X1 MEAL DIET RX: 2000DM GRD RECOMMEND ADDING ENSURE MAX BID TO PROMOTE WOUND HEALING SUPP TO PROVIDE 300KCALS, 60G PROTEIN MONITOR PO INTAKE AND ENCOURAGE SUPPLEMENTS SEE FULL ASSESSMENT
--- NOTE | 2025-04-29 11:17 | HO.PM.IMPN ---
Subjective Subjective Date of Service: 04/29/25 Interval History: Pt seen and evaluated in her room where she is resting comfortably in bed Appears more awake and alert than yesterday INR supratherapeutic at 4.8 H&H with slight drop, now borderline at 7.1/25.3 Potassium 2.9 2/2 blood cultures positive for Gram-positive cocci in clusters ID consulted, recommend IV antibiotics custodial only if pt uses Plastic surgery to help close open wound Review of Systems Review of Systems: Yes Unobtainable due to mental status Physical Exam Exam: Exam: General: Alert, no acute distress Resp: CTA bilaterally CVS: Irregularly irregular, +mechanical click. GI: +BS, NT, no distention Skin: Warm, dry. Decubitus ulcer with central necrosis with surrounding erythema. See photo in admission HPI Neuro: Cranial nerves II-XII grossly intact bilaterally. Motor grossly intact bilaterally Extremities: No pitting edema Psych: Pleasantly confused, primarily nonverbal Vital Signs: Vital Signs: Last Vital Signs Temp 98.1 F 04/29/25 08:00 Pulse 84 04/29/25 08:00 Resp 17 04/29/25 08:00 BP 108/52 L 04/29/25 08:00 Pulse Ox 91 L 04/29/25 08:00 O2 Del Method Room Air 04/29/25 08:00 BMI result Body Mass Index 24.8 Objective Data Active Medications Amlodipine Besylate (Amlodipine Besylate 5 Mg Tablet) 5 mg PO DAILY [facility]; Protocol Last Admin: 04/29/25 08:56 Dose: Not Given Documented By: RENEE Non-Admin Reason: Physician Held Med Aspirin (Aspirin 81 Mg Tab.Chew) 81 mg PO DAILY [facility] Last Admin: 04/29/25 08:25 Dose: 81 mg Documented By: RENEE Atorvastatin Calcium (Atorvastatin Calcium 80 Mg Tablet) 80 mg PO DAILY [facility] Last Admin: 04/29/25 08:24 Dose: 80 mg Documented By: RENEE Calcium Carbonate (Calcium Carbonate 750 Mg Tab.Chew) 750 mg PO Q4H PRN PRN Reason: Heartburn Dextrose (Dextrose 50 % 25 Gm/50 Ml Syringe) 25 gm IVPUSH Q15M PRN; Protocol PRN Reason: per Hypoglycemia Standing Ord. Glucose (Glucose Gel 15 Gm Gel..Gram.) 15 gm PO Q15M PRN; Protocol PRN Reason: per Hypoglycemia Standing Ord. Piperacillin Sod/Tazobactam (Sod 3.375 gm/ Sodium Chloride) 50 mls @ 100 mls/hr IV Q6H [facility] Last Infusion: 04/29/25 08:55 Dose: Infused Documented By: RENEE Vancomycin HCl 1,250 mg/ (Sodium Chloride) 250 mls @ 166.667 mls/hr IV Q24H [facility] Last Infusion: 04/29/25 01:00 Dose: Infused Documented By: NEREYDA Acetaminophen (Ofirmev) 1,000 mg in 100 mls @ 400 mls/hr IV Q6H [facility] Last Infusion: 04/29/25 04:56 Dose: Infused Documented By: NEREYDA Potassium Chloride (Potassium Chloride/H20) 10 meq in 100 mls @ 100 mls/hr IV Q1H [facility] Stop: 04/29/25 11:44 Last Admin: 04/29/25 09:47 Dose: 100 mls/hr Documented By: RENEE Insulin Human Lispro (Insulin Lispro 100 Unit/Ml 3 Ml Vial) 0 unit SUBCUT QIDACHS [facility]; Protocol Last Admin: 04/29/25 08:24 Dose: 2 unit Documented By: RENEE Levetiracetam (Levetiracetam Oral Soln 500 Mg/5 Ml) 500 mg PO BID [facility] Last Admin: 04/29/25 08:25 Dose: 500 mg Documented By: RENEE Magnesium Hydroxide (Milk Of Magnesia 30 Ml Oral.Susp) 30 ml PO DAILY PRN PRN Reason: Constipation Melatonin (Melatonin 3 Mg Tablet) 6 mg PO BEDTIME PRN PRN Reason: Insomnia Metoprolol Tartrate (Metoprolol Tartrate 50 Mg Tablet) 50 mg PO BID [facility]; Protocol Last Admin: 04/29/25 08:24 Dose: 50 mg Documented By: RENEE Nystatin (Nystatin Powder 15 Gm Bottle) 1 appl TOPICAL BID [facility]; Protocol Last Admin: 04/29/25 10:00 Dose: 1 appl Documented By: RENEE Omeprazole (Omeprazole/Na Bicarb Oral Susp 20 Mg/10 Ml Ud Cup) 20 mg PO DAILY@0630 [facility] Last Admin: 04/29/25 06:24 Dose: 20 mg Documented By: NEREYDA Ondansetron HCl (Ondansetron Hcl 4 Mg/2 Ml Vial) 4 mg IVPUSH Q8H PRN PRN Reason: Nausea and Vomiting Last Admin: 04/29/25 04:27 Dose: 4 mg Documented By: NEREYDA Oxycodone HCl (Oxycodone Hcl Immed Release 5 Mg Tablet) 5 mg PO Q6H PRN PRN Reason: Pain, Severe (Pain Scale 7-10) Pharmacy Consult (Consult Rx Vancomycin Dosing) 1 each MISCELLANE DAILY PRN PRN Reason: Consult order Sodium Chloride (0.9 % Sodium Chloride Flush 3 Ml Syringe) 3 ml IVFLUSH QSHIFT [facility] Last Admin: 04/29/25 08:57 Dose: 3 ml Documented By: RENEE Sodium Hypochlorite (Sodium Hypochlorite 0.125% 473 Ml Solution) 1 appl TOPICAL BID [facility] Last Admin: 04/29/25 08:25 Dose: Not Given Documented By: RENEE Non-Admin Reason: Med Not Available Tramadol HCl (Tramadol Hcl 50 Mg Tablet) 50 mg PO Q6H PRN PRN Reason: Pain, Moderate(Pain Scale 4-6) Last Admin: 04/29/25 06:21 Dose: 50 mg Documented By: NEREYDA Valsartan (Valsartan 160 Mg Tablet) 160 mg PO DAILY@0900 [facility]; Protocol Last Admin: 04/29/25 08:56 Dose: Not Given Documented By: RENEE Non-Admin Reason: Physician Held Med Warfarin Sodium (Warfarin Sodium 4 Mg Tablet) 4 mg PO SuMoWeFrSa@1800 JUANITA Warfarin Sodium (Warfarin Sodium 6 Mg Tablet) 6 mg PO TuTh@1800 [facility] Last Admin: 04/28/25 18:02 Dose: 6 mg Documented By: WILLIAM Labs 04/29/25 06:46 04/29/25 06:46 Labs: Laboratory Results - last 24 hr 04/28/25 04/28/25 04/28/25 04:33 11:36 17:54 MCV MCH MCHC RDW Plt Count MPV Immature Gran % (Auto) Neut % (Auto) Lymph % (Auto) [place] % (Auto) Eos % (Auto) Baso % (Auto) Lymph # (Auto) [place] # (Auto) Eos # (Auto) Baso # (Auto) Abs Immat Gran (auto) Absolute Neuts (auto) Absolute Nucleated RBC Nucleated RBC % (auto) ESR 121 H PT INR Anion Gap Estim Creat Clear Calc Estimated GFR POC Glucose 187 H 336 H Random Glucose Calcium C-Reactive Protein 12.84 H 04/28/25 04/29/25 04/29/25 22:33 06:46 07:32 MCV 74.2 L MCH 20.8 L MCHC 28.1 L RDW 16.9 H Plt Count 373 MPV 9.6 Immature Gran % (Auto) 0.4 Neut % (Auto) 86.8 H Lymph % (Auto) 5.5 L [place] % (Auto) 5.5 Eos % (Auto) 1.4 Baso % (Auto) 0.4 Lymph # (Auto) 0.8 L [place] # (Auto) 0.8 Eos # (Auto) 0.2 Baso # (Auto) 0.1 Abs Immat Gran (auto) 0.06 H Absolute Neuts (auto) 11.9 H Absolute Nucleated RBC 0.000 Nucleated RBC % (auto) 0.0 ESR PT 56.4 H D INR 4.8 H D Anion Gap 13 Estim Creat Clear Calc 63.8 Estimated GFR > 60 POC Glucose 195 H 170 H Random Glucose 175 H Calcium 8.8 C-Reactive Protein Microbiology Microbiology Results: Microbiology 04/27/25 18:36 Blood Culture - Preliminary Blood - Venous Prelim: GPC Gram Stain only 04/27/25 18:36 Blood Culture - Preliminary Blood - Venous Prelim: GPC Gram Stain only Assessment and Plan (1) Osteomyelitis: Status: Acute (2) Sepsis: Status: Acute (3) Infected decubitus ulcer: Status: Acute Plan Patient is a 79-year-old female with a past medical history significant for chronic decubitus ulcer, hypertension, type 2 diabetes, hyperlipidemia, HFpEF, mechanical aortic valve replacement on warfarin, 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 Sepsis secondary to infected decubitus ulcer with osteomyelitis on CT - met sepsis criteria with fever, tachycardia, and leukocytosis; lactic acid WNL, no hypotension - elevated ESR 121 and FILLING CARRIER 12.84 - Zosyn and vancomycin, started 04/27 - general surgery performed bedside debridement on 04/28 - wound care consulted, recommend Dakin solution wet-to-dry dressings, cover with dry gauze and foam dressing - ID recommended IV daptomycin and ertapenem x6 weeks only if family plans to use Plastic surgery to help close the open area - monitor CBC and BMP Bacteremia - 2/2 blood cultures positive for Gram-positive cocci in clusters - likely secondary to sacral decubitus ulcer osteomyelitis - treat with vanc and Zosyn as above - follow final blood cultures Goals of care - spoke to family about goals of care - pt has been steadily declining since CVA in 12/2024 - has developed AFib, had multiple subsequent strokes, now with right hemiplegia, immobile and bed-bound, as well as currently bacteremic and with osteomyelitis - will get hospice consult Hypokalemia - Potassium 2.9 on 04/29 - will supplement with p.o. and IV potassium - Trend labs elevated troponin - EKG with a fib/RVR, rate normalized now - trop 65.4, flat at 76.1, likely type 2 in the setting of increased demand - tele - cardiology consult, do not think any specific implications for the troponin leak - on warfarin for mechanical valve - echo showing LVEF 50 55% with mechanical aortic prosthetic valve with suspected stenosis. Also showed severe mitral annular calcification with possible stenosis and ascending aortic size of 4.6 cm AFib w/RVR - daughter at bedside report pt noted to first be in AFib a few weeks ago at [facility] - pt on warfarin for mechanical aortic valve - INR 4.8, goal should be around 2.5 - tele - continue warfarin, metoprolol - cardiology following, does not think pt a candidate for any valvular workup or intervention Hypertension - metorpolol, valsartan, amlodipine HLD - continue home meds T2 dm - sliding scale insulin - hold metformin - Lantus daily HFpEF, no acute exacerbation - continue Lasix Mechanical aortic valve replacement - warfarin - monitor PT/INR History CVA ?seizures - keppra - MACHINE BUILDER recommend ground/mechanical altered (NDD2) diet and thin liquids, pills crushed in puree - 1-1 assistance with feeding DNR/DNI, son confirmed change in status VTE prophy: warfarin Pt will require continued hospitalization due to need for IV antibiotics for infected and necrotic sacral decubitus ulcer concerning for acute osteomyelitis. Pt is now awaiting hospice consult for optimal care and safe disposition. Quality Stroke Does the patient have a stroke diagnosis?: No VTE Prior VTE?: No VTE Risk Level:: Medical - moderate - high VTE Device Contraindication: Treatment Not Indicated VTE Drug Contraindication: N/A - Med Ordered
--- NOTE | 2025-04-29 11:20 | PM.PNCARD ---
Subjective Subjective Date of Service: 04/29/25 Interval history: No new cardiac symptoms at this time. Review of Systems Review of Systems Yes all other systems are reviewed and are negative Constitutional: Reports as per HPI and Reports no additional constitutional complaints Eyes: Reports as per HPI and Denies no additional eye complaints Denies system reviewed and no additional complaints, except as documented and Reports as per HPI Cardiovascular: Reports as per HPI, Reports no additional cardiovascular complaints, Denies acrocyanosis, Denies cool extremities, Denies chest pain, Denies leg edema, Denies lightheadedness, Denies palpitations and Denies dyspnea Respiratory: Reports as per HPI, Denies no additional respiratory complaints and Denies dyspnea Gastrointestinal: Reports as per HPI and Denies no additional gastrointestinal complaints Genitourinary: Reports as per HPI Musculoskeletal: Reports no additional musculoskeletal complaints and Reports as per HPI Skin/Breast: Reports system reviewed and no additional complaints, except as docu Reports system reviewed and no additional complaints, except as documented and Reports as per HPI Psychiatric: Reports no additional psychiatric complaints and Reports as per HPI Endocrine: Reports no additional endocrine complaints, Reports as per HPI and Denies palpitations Hematologic/Lymphatic: Reports no additional hematologic/lymphatic complaints and Reports as per HPI Allergic/Immunologic: Reports no additional allergic/immunologic complaints and Reports as per HPI Physical Exam Vital Signs: Last Vital Signs Temp 98.1 F 04/29/25 08:00 Pulse 84 04/29/25 08:00 Resp 17 04/29/25 08:00 BP 108/52 L 04/29/25 08:00 Pulse Ox 91 L 04/29/25 08:00 O2 Del Method Room Air 04/29/25 08:00 BMI result Body Mass Index 24.8 Const General: comfortable and no acute distress Orientation/consciousness: patient oriented x3 HEENT Other: Unremarkable Head: Yes normal to inspection Neck Neck: Yes normal visual inspection Chest Chest palpation & inspection: normal inspection of the chest Resp Auscultation: clear to auscultation bilaterally Cardio Palpation: normal PMI Heart sounds: S1 normal heart sound present, S2 normal heart sound present, no gallops, Murmur heart sound present systolic III/ and no rubs GI Palpation (GI): Soft to palpation Back/Spine/Pelvis Other: unremarkable Skin General skin exam: no rashes or lesions noted Neuro General: patient oriented x3 Extrem General: Yes normal to inspection Psych Mental Status: mental status grossly normal Objective Labs and Meds 04/29/25 06:46 04/29/25 06:46 Lab results: Laboratory Results - last 24 hr 04/28/25 04/28/25 04/28/25 04:33 11:36 17:54 WBC RBC Hgb Hct MCV MCH MCHC RDW Plt Count MPV Immature Gran % (Auto) Neut % (Auto) Lymph % (Auto) [place] % (Auto) Eos % (Auto) Baso % (Auto) Lymph # (Auto) [place] # (Auto) Eos # (Auto) Baso # (Auto) Abs Immat Gran (auto) Absolute Neuts (auto) Absolute Nucleated RBC Nucleated RBC % (auto) ESR 121 H PT INR Sodium Potassium Chloride Carbon Dioxide Anion Gap BUN Creatinine Estim Creat Clear Calc Estimated GFR POC Glucose 187 H 336 H Random Glucose Calcium C-Reactive Protein 12.84 H 04/28/25 04/29/25 04/29/25 22:33 06:46 07:32 WBC 13.7 H RBC 3.41 L Hgb 7.1 L Hct 25.3 L MCV 74.2 L MCH 20.8 L MCHC 28.1 L RDW 16.9 H Plt Count 373 MPV 9.6 Immature Gran % (Auto) 0.4 Neut % (Auto) 86.8 H Lymph % (Auto) 5.5 L [place] % (Auto) 5.5 Eos % (Auto) 1.4 Baso % (Auto) 0.4 Lymph # (Auto) 0.8 L [place] # (Auto) 0.8 Eos # (Auto) 0.2 Baso # (Auto) 0.1 Abs Immat Gran (auto) 0.06 H Absolute Neuts (auto) 11.9 H Absolute Nucleated RBC 0.000 Nucleated RBC % (auto) 0.0 ESR PT 56.4 H D INR 4.8 H D Sodium 146 H Potassium 2.9 L* Chloride 110 H Carbon Dioxide 26 Anion Gap 13 BUN 22 H Creatinine 0.64 Estim Creat Clear Calc 63.8 Estimated GFR > 60 POC Glucose 195 H 170 H Random Glucose 175 H Calcium 8.8 C-Reactive Protein Progress Note: A&P Assessment and plan (1) Atrial flutter by electrocardiogram: Status: Acute (2) History of mechanical aortic valve replacement: Status: Acute Plan In the initial EKG, possible atrial flutter based on marching flutter waves the initial beats but difficult to assess. The later part of the EKGs seems to be sinus rhythm. Currently on telemetry could have sinus rhythm with PACs. Possible atrial tach in some strips but again difficult to assess In the echocardiogram, LVEF 50-55%. Mechanical aortic prosthetic valve with suspected stenosis. Severe mitral annular calcification with possible stenosis. Ascending aortic size 4.6 cm. Overall, continue metoprolol that she is already taking. Continue warfarin. Target INR should be around 2.5. Also on aspirin. No specific implications for the troponin leak. Overall, considering her comorbidities and poor mobility, she is really not a candidate for any valvular workup or interventions. Time Spent With Patient Time: Total time managing care of this patient today ____ minutes. Progress Note: Quality Stroke Does the patient have a stroke diagnosis?: No Procedures Date of Service Date of Service: 04/29/25
[2025-04-29 11:28] LABS: Glucose, Whole Blood 192 mg/dL (60-115)
[2025-04-29 12:00] VITALS: BP 125/63; PULSE 78; RESP 17; TEMP 36.3; O2SAT 91
[2025-04-29 15:31] VITALS: BP 137/63; PULSE 96; RESP 18; TEMP 36.1; O2SAT 94
[2025-04-29 15:42] LABS: Glucose, Whole Blood 223 mg/dL (60-115)
--- NOTE | 2025-04-29 16:28 | MHC.SLORD ---
Speech Language Pathology Order Status: LINEN FOLDER attempted to see patient at mealtime feeding w/ MARKET RELATIONSHIP MANAGER. Patient only taking few bites and sip of gingerale then refusing more. MARKET RELATIONSHIP MANAGER reports patient tolerated breakfast w/o overt difficulty. Continue on GROUND/MECH ALTERED (NDD2) diet and THIN liquids, pills CRUSHED in PUREE. Patient requires 1:1 assistance feeding.
[2025-04-29 19:59] VITALS: BP 142/62; PULSE 100; RESP 18; TEMP 36.3; O2SAT 94
[2025-04-29 20:17] LABS: Glucose, Whole Blood 280 mg/dL (60-115)
--- NOTE | 2025-04-29 21:41 | PM.IDPN ---
Subjective Subjective Date of Service: 04/29/25 Critical Care Time (minutes): 15 Comment: She has blood culture 2/2 gram positive cocci Objective Data Labs 04/29/25 06:46 04/29/25 06:46 Labs: Laboratory Results - last 24 hr 04/28/25 04/29/25 04/29/25 22:33 06:46 07:32 WBC 13.7 H RBC 3.41 L Hgb 7.1 L Hct 25.3 L MCV 74.2 L MCH 20.8 L MCHC 28.1 L RDW 16.9 H Plt Count 373 MPV 9.6 Immature Gran % (Auto) 0.4 Neut % (Auto) 86.8 H Lymph % (Auto) 5.5 L [place] % (Auto) 5.5 Eos % (Auto) 1.4 Baso % (Auto) 0.4 Lymph # (Auto) 0.8 L [place] # (Auto) 0.8 Eos # (Auto) 0.2 Baso # (Auto) 0.1 Abs Immat Gran (auto) 0.06 H Absolute Neuts (auto) 11.9 H Absolute Nucleated RBC 0.000 Nucleated RBC % (auto) 0.0 PT 56.4 H D INR 4.8 H D Sodium 146 H Potassium 2.9 L* Chloride 110 H Carbon Dioxide 26 Anion Gap 13 BUN 22 H Creatinine 0.64 Estim Creat Clear Calc 63.8 Estimated GFR > 60 POC Glucose 195 H 170 H Random Glucose 175 H Calcium 8.8 Random Vancomycin 04/29/25 04/29/25 04/29/25 11:11 15:39 19:28 WBC RBC Hgb Hct MCV MCH MCHC RDW Plt Count MPV Immature Gran % (Auto) Neut % (Auto) Lymph % (Auto) [place] % (Auto) Eos % (Auto) Baso % (Auto) Lymph # (Auto) [place] # (Auto) Eos # (Auto) Baso # (Auto) Abs Immat Gran (auto) Absolute Neuts (auto) Absolute Nucleated RBC Nucleated RBC % (auto) PT INR Sodium Potassium Chloride Carbon Dioxide Anion Gap BUN Creatinine Estim Creat Clear Calc Estimated GFR POC Glucose 192 H 223 H Random Glucose Calcium Random Vancomycin 10.1 L 04/29/25 19:50 WBC RBC Hgb Hct MCV MCH MCHC RDW Plt Count MPV Immature Gran % (Auto) Neut % (Auto) Lymph % (Auto) [place] % (Auto) Eos % (Auto) Baso % (Auto) Lymph # (Auto) [place] # (Auto) Eos # (Auto) Baso # (Auto) Abs Immat Gran (auto) Absolute Neuts (auto) Absolute Nucleated RBC Nucleated RBC % (auto) PT INR Sodium Potassium Chloride Carbon Dioxide Anion Gap BUN Creatinine Estim Creat Clear Calc Estimated GFR POC Glucose 280 H Random Glucose Calcium Random Vancomycin Microbiology Microbiology Results: Microbiology 04/27/25 18:36 Blood - Venous Blood Culture - Preliminary Prelim: GPC Gram Stain only 04/27/25 18:36 Blood - Venous Blood Culture - Preliminary Prelim: GPC Gram Stain only Physical Exam Vital Signs: Vital Signs: Last Vital Signs Temp 97.4 F 04/29/25 19:59 Pulse 100 04/29/25 19:59 Resp 18 04/29/25 19:59 BP 142/62 H 04/29/25 19:59 Pulse Ox 94 04/29/25 19:59 O2 Del Method Room Air 04/29/25 19:59 BMI result Body Mass Index 24.8 Const: General: cooperative HEENT: Head: Yes normal to inspection Face and sinus: Yes normal facial exam Mouth: Normal oral and palatal mucosa present Teeth and gingiva: dentition normal Eyes: General: appearance normal, both eyes and all related structures Pupils: Equal, round and reactive pupils present Resp: Effort & Inspection: normal respiratory effort Cardio: Rate: regular rate Rhythm: regular rhythm GI: Palpation (GI): Soft to palpation and nontender Back/Spine/Pelvis: Other: necrotic area sacrum Skin: General skin exam: no rashes or lesions noted Neuro: General: moves all extremities Cranial nerves: Yes Equal, round and reactive pupils present Extrem: General: Yes normal to inspection Psych: Appearance: grossly normal Assessment and Plan Assessment and plan (1) Osteomyelitis: Status: Acute (2) Sepsis: Status: Acute Plan Gram positive bacteremia Possible staph or strep TTE unremarkable Would continue Vancomycin and Zosyn Adjust tomorrow,6 weeks IV antibiotics Time Spent With Patient Time: Total time managing care of this patient today ____ minutes.
[2025-04-29 23:24] VITALS: BP 147/66; PULSE 103; RESP 18; TEMP 36.6; O2SAT 93
[2025-04-30] VITALS (12 sets, daily range): BP systolic 118–149; BP diastolic 58–68; PULSE 87–103; RESP 18–19; TEMP 36.4–38.6; O2SAT 92–95
--- NOTE | 2025-04-30 01:28 | ECG_ITS ---
Test Reason : DEJESUY Blood Pressure : */* mmHG Vent. Rate : 109 BPM Atrial Rate : * BPM P-R Int : * ms QRS Dur : 146 ms QT Int : 418 ms P-R-T Axes : * 57 7 degrees QTcB Int : 562 ms Undetermined rhythm - sinus with PACs vs atria fibrillation vs flutter Left bundle branch block Abnormal ECG When compared with ECG of 27-Apr-2025 18:28, possible rhythm change Referred By: Mayur Garcia Electronically Signed By: DANIEL COOK
[2025-04-30] MEDS: Omeprazole/Na Bicarb Oral Susp 20 MG/10 ML UD Cup PO (06:10)
[2025-04-30 07:18] LABS: MANUAL DIFF FLAG NO
[2025-04-30 07:21] LABS: Hematocrit 23.5 % (37.0-47.0); Imm Gran Abs Auto 0.06 X10*3/uL (0.00-0.03); Imm Gran Pct Auto 0.5 % (0.0-0.4); Lymphocytes Absolute Auto 1.3 X10*3/uL (1.2-4.9); Mean Corpuscular HGB Conc 28.5 g/dl (31.0-35.0); Mean Corpuscular Hemoglobin 20.7 pg (27.0-33.0); Mean Corpuscular Volume 72.8 fL (80.0-98.0); NRBC Abs Auto 0.000 X10*3/uL (0.0-0.012); NRBC Pct Auto 0.0 /100WBC (0.0-0.2); Platelet Count 427 X10*3/uL (160-400); Red Blood Count 3.23 X10*6/uL (4.20-5.50); White Blood Count 11.0 X10*3/uL (4.8-10.8)
[2025-04-30 07:30] LABS: Prothrombin Time 63.6 SEC (11.2-13.5)
[2025-04-30 07:40] LABS: Hemoglobin 6.7 g/dl (12.0-16.0); INTERNATIONAL NORM RATIO 5.4 (0.9-1.1)
[2025-04-30 07:59] LABS: Blood Urea Nitrogen 22 mg/dL (9-16); Calcium 8.7 mg/dL (8.4-10.2); Creatinine Clr Calc Pharmacy 59.2; Estimated Glomerular Filt Rate > 60
[2025-04-30 08:06] LABS: Glucose, Whole Blood 263 mg/dL (60-115)
[2025-04-30 08:15] LABS: Anion Gap 16 (12-20); Carbon Dioxide 23 mmol/L (22-29); Chloride 113 mmol/L (96-108); Potassium 4.1 mmol/L (3.3-5.1); Sodium 148 mmol/L (135-145)
[2025-04-30] MEDS: Phytonadione (Vit K1) Oral 10 MG/ML AMPUL 5 MG PO (08:22)
[2025-04-30] MEDS: levETIRAcetam Oral Soln 500 MG/5 ML PO ×2 (08:22→20:56)
[2025-04-30 09:23] LABS: Magnesium 1.8 mg/dL (1.6-2.6)
[2025-04-30 11:41] LABS: Glucose, Whole Blood 322 mg/dL (60-115)
--- NOTE | 2025-04-30 13:28 | MHC.CM.PN ---
THIS CM MET WITH THE PATIENTS FAMILY WHO WERE PRESENT AT BEDSIDE PER PA'S REQUEST TO DISCUSS HOSPICE. PATIENTS FAMILY ARE IN AGREEMENT WITH HOSPICE SERVICES, AND WOULD LIKE A HOSPICE INFORMATIONAL, THEY ARE AGREEABLE TO GOING WITH [facility]. HOSPICE REFERRAL SENT TO [facility] IN [facility], AWAITING AGENCY RESPONSE.
--- NOTE | 2025-04-30 14:59 | P.PNIM_ITS ---
Subjective Subjective Date of Service: 04/30/25 Interval History: Pt seen and evaluated during morning rounds Drop in H&H to 6.7/23.5; no signs of active bleeding INR increased to 5.4 Potassium normalized to 4.1 Pt appears more awake and interactive than yesterday Tired, but denies any specific acute complaints Spoke to family at bedside about hospice consult Review of Systems Review of Systems: Yes all other systems are reviewed and are negative Physical Exam 2 Exam: Exam: General: Awake and alert, more interactive today. In, no acute distress Resp: CTA bilaterally CVS: Irregularly irregular, +mechanical click. GI: +BS, NT, no distention Skin: Warm, dry. Decubitus ulcer with central necrosis with surrounding erythema. See photo in admission HPI Neuro: Cranial nerves II-XII grossly intact bilaterally. Motor grossly intact bilaterally Extremities: No pitting edema Psych: Pleasantly confused, minimally verbal Vital Signs: Vital Signs: Last Vital Signs Temp 97.5 F 04/30/25 14:49 Pulse 89 04/30/25 14:49 Resp 18 04/30/25 14:49 BP 144/63 H 04/30/25 14:49 Pulse Ox 95 04/30/25 12:00 O2 Del Method Room Air 04/30/25 12:00 BMI result Body Mass Index 24.8 Objective Data Active Medications Acetaminophen (Acetaminophen 325 Mg Tablet) 650 mg PO Q6H PRN PRN Reason: Pain, Mild 1-3,fever,headache Last Admin: 04/30/25 02:02 Dose: 650 mg Documented By: BARRETT Amlodipine Besylate (Amlodipine Besylate 5 Mg Tablet) 5 mg PO DAILY [facility]; Protocol Last Admin: 04/30/25 08:23 Dose: 5 mg Documented By: HUNTER Aspirin (Aspirin 81 Mg Tab.Chew) 81 mg PO DAILY [facility] Last Admin: 04/30/25 08:23 Dose: 81 mg Documented By: HUNTER Atorvastatin Calcium (Atorvastatin Calcium 80 Mg Tablet) 80 mg PO DAILY [facility] Last Admin: 04/30/25 08:23 Dose: 80 mg Documented By: HUNTER Calcium Carbonate (Calcium Carbonate 750 Mg Tab.Chew) 750 mg PO Q4H PRN PRN Reason: Heartburn Dextrose (Dextrose 50 % 25 Gm/50 Ml Syringe) 25 gm IVPUSH Q15M PRN; Protocol PRN Reason: per Hypoglycemia Standing Ord. Glucose (Glucose Gel 15 Gm Gel..Gram.) 15 gm PO Q15M PRN; Protocol PRN Reason: per Hypoglycemia Standing Ord. Piperacillin Sod/Tazobactam (Sod 3.375 gm/ Sodium Chloride) 50 mls @ 100 mls/hr IV Q6H [facility] Last Infusion: 04/30/25 09:29 Dose: Infused Documented By: HUNTER Vancomycin HCl 750 mg/ Sodium (Chloride) 265 mls @ 265 mls/hr IV Q12H [facility] Last Infusion: 04/30/25 11:06 Dose: Infused Documented By: HUNTER Insulin Human Lispro (Insulin Lispro 100 Unit/Ml 3 Ml Vial) 0 unit SUBCUT QIDACHS [facility]; Protocol Last Admin: 04/30/25 11:53 Dose: 8 unit Documented By: HUNTER Levetiracetam (Levetiracetam Oral Soln 500 Mg/5 Ml) 500 mg PO BID [facility] Last Admin: 04/30/25 08:22 Dose: 500 mg Documented By: HUNTER Magnesium Hydroxide (Milk Of Magnesia 30 Ml Oral.Susp) 30 ml PO DAILY PRN PRN Reason: Constipation Melatonin (Melatonin 3 Mg Tablet) 6 mg PO BEDTIME PRN PRN Reason: Insomnia Metoprolol Tartrate (Metoprolol Tartrate 50 Mg Tablet) 50 mg PO BID [facility]; Protocol Last Admin: 04/30/25 08:23 Dose: 50 mg Documented By: HUNTER Nystatin (Nystatin Powder 15 Gm Bottle) 1 appl TOPICAL BID [facility]; Protocol Last Admin: 04/30/25 08:32 Dose: 1 appl Documented By: HUNTER Omeprazole (Omeprazole/Na Bicarb Oral Susp 20 Mg/10 Ml Ud Cup) 20 mg PO DAILY@0630 [facility] Last Admin: 04/30/25 06:10 Dose: 20 mg Documented By: BARRETT Ondansetron HCl (Ondansetron Hcl 4 Mg/2 Ml Vial) 4 mg IVPUSH Q8H PRN PRN Reason: Nausea and Vomiting Last Admin: 04/29/25 04:27 Dose: 4 mg Documented By: NAMRATALAMSandra Oxycodone HCl (Oxycodone Hcl Immed Release 5 Mg Tablet) 5 mg PO Q6H PRN PRN Reason: Pain, Severe (Pain Scale 7-10) Pharmacy Consult (Consult Rx Vancomycin Dosing) 1 each MISCELLANE DAILY PRN PRN Reason: Consult order Sodium Chloride (0.9 % Sodium Chloride Flush 3 Ml Syringe) 3 ml IVFLUSH QSHIFT [facility] Last Admin: 04/30/25 09:24 Dose: Not Given Documented By: HUNTER Non-Admin Reason: IV Running Sodium Hypochlorite (Sodium Hypochlorite 0.125% 473 Ml Solution) 1 appl TOPICAL BID [facility] Last Admin: 04/30/25 08:33 Dose: 1 appl Documented By: HUNTER Tramadol HCl (Tramadol Hcl 50 Mg Tablet) 50 mg PO Q6H PRN PRN Reason: Pain, Moderate(Pain Scale 4-6) Last Admin: 04/29/25 06:21 Dose: 50 mg Documented By: NEREYDA Valsartan (Valsartan 160 Mg Tablet) 160 mg PO DAILY@0900 [facility]; Protocol Last Admin: 04/30/25 08:23 Dose: 160 mg Documented By: HUNTER Warfarin Sodium (Warfarin Sodium 4 Mg Tablet) 4 mg PO SuMoWeFrSa@1800 JUANITA On Hold: 04/30/25 07:46 Warfarin Sodium (Warfarin Sodium 6 Mg Tablet) 6 mg PO TuTh@1800 JUANITA On Hold: 04/30/25 07:46 Last Admin: 04/28/25 18:02 Dose: 6 mg Documented By: WILLIAM Labs 04/30/25 06:36 04/30/25 06:36 Labs: Laboratory Results - last 24 hr 04/29/25 04/29/25 04/29/25 15:39 19:28 19:50 MCV MCH MCHC RDW Plt Count MPV Immature Gran % (Auto) Neut % (Auto) Lymph % (Auto) [place] % (Auto) Eos % (Auto) Baso % (Auto) Lymph # (Auto) [place] # (Auto) Eos # (Auto) Baso # (Auto) Abs Immat Gran (auto) Absolute Neuts (auto) Absolute Nucleated RBC Nucleated RBC % (auto) PT INR Anion Gap Estim Creat Clear Calc Estimated GFR POC Glucose 223 H 280 H Random Glucose Calcium Magnesium Random Vancomycin 10.1 L Blood Type Antibody Screen Crossmatch 04/30/25 04/30/25 04/30/25 06:36 08:02 10:22 MCV 72.8 L MCH 20.7 L MCHC 28.5 L RDW 17.1 H Plt Count 427 H MPV 10.1 Immature Gran % (Auto) 0.5 H Neut % (Auto) 79.2 H Lymph % (Auto) 11.4 L [place] % (Auto) 6.9 Eos % (Auto) 1.5 Baso % (Auto) 0.5 Lymph # (Auto) 1.3 [place] # (Auto) 0.8 Eos # (Auto) 0.2 Baso # (Auto) 0.1 Abs Immat Gran (auto) 0.06 H Absolute Neuts (auto) 8.7 H Absolute Nucleated RBC 0.000 Nucleated RBC % (auto) 0.0 PT 63.6 H INR 5.4 H* Anion Gap 16 Estim Creat Clear Calc 59.2 Estimated GFR > 60 POC Glucose 263 H Random Glucose 265 H Calcium 8.7 Magnesium 1.8 Random Vancomycin Blood Type O Positive Antibody Screen NEGATIVE Crossmatch See Detail 04/30/25 11:37 MCV MCH MCHC RDW Plt Count MPV Immature Gran % (Auto) Neut % (Auto) Lymph % (Auto) [place] % (Auto) Eos % (Auto) Baso % (Auto) Lymph # (Auto) [place] # (Auto) Eos # (Auto) Baso # (Auto) Abs Immat Gran (auto) Absolute Neuts (auto) Absolute Nucleated RBC Nucleated RBC % (auto) PT INR Anion Gap Estim Creat Clear Calc Estimated GFR POC Glucose 322 H Random Glucose Calcium Magnesium Random Vancomycin Blood Type Antibody Screen Crossmatch Microbiology Microbiology Results: Microbiology 04/27/25 18:36 Blood Culture - Preliminary Blood - Venous Prelim: GPC Gram Stain only 04/27/25 18:36 Blood Culture - Preliminary Blood - Venous Prelim: GPC Gram Stain only Assessment and Plan (1) Osteomyelitis: Status: Acute (2) Sepsis: Status: Acute (3) Infected decubitus ulcer: Status: Acute Plan Patient is a 79-year-old female with a past medical history significant for chronic decubitus ulcer, hypertension, type 2 diabetes, hyperlipidemia, HFpEF, mechanical aortic valve replacement on warfarin, 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 Sepsis secondary to infected decubitus ulcer with osteomyelitis on CT - met sepsis criteria with fever, tachycardia, and leukocytosis; lactic acid WNL, no hypotension - elevated ESR 121 and RETAIL FINANCIAL ANALYST 12.84 - Zosyn and vancomycin, started 04/27 - general surgery performed bedside debridement on 04/28 - wound care consulted, recommend Dakin solution wet-to-dry dressings, cover with dry gauze and foam dressing - ID recommended IV daptomycin and ertapenem x6 weeks only if family plans to use Plastic surgery to help close the open area - monitor CBC and BMP Bacteremia - 2/ blood cultures positive for Gram-positive cocci in clusters - likely secondary to sacral decubitus ulcer osteomyelitis - treat with vanc and Zosyn as above - follow final blood cultures Acute on chronic blood loss anemia - Hgb drop 7.8-->7.1-->6.7 - no signs of active bleeding; likely from chronic disease - will transfuse 1 unit PRBCs - trend H&H Goals of care - spoke to family about goals of care - pt has been steadily declining since CVA in 12/2024 - has developed AFib, had multiple subsequent strokes, now with right hemiplegia, immobile and bed-bound, as well as currently bacteremic and with osteomyelitis - will get hospice consult Hypokalemia, resolved - Potassium 2.9 on 04/29, now 4.1 - Supplemented with p.o. and IV potassium - Trend labs elevated troponin - EKG with a fib/RVR, rate normalized now - trop 65.4, flat at 76.1, likely type 2 in the setting of increased demand - tele - cardiology consult, do not think any specific implications for the troponin leak - on warfarin for mechanical valve - echo showing LVEF 50 55% with mechanical aortic prosthetic valve with suspected stenosis. Also showed severe mitral annular calcification with possible stenosis and ascending aortic size of 4.6 cm AFib w/RVR - daughter at bedside report pt noted to first be in AFib a few weeks ago at [facility] - pt on warfarin for mechanical aortic valve - INR 4.8, goal should be around 2.5 - tele - continue warfarin, metoprolol - cardiology following, does not think pt a candidate for any valvular workup or intervention Hypertension - metorpolol, valsartan, amlodipine HLD - continue home meds T2 dm - sliding scale insulin - hold metformin - Lantus daily HFpEF, no acute exacerbation - continue Lasix Mechanical aortic valve replacement - warfarin - monitor PT/INR History CVA ?seizures - keppra - EDUCATIONAL PROGRAM ASSISTANT recommend ground/mechanical altered (NDD2) diet and thin liquids, pills crushed in puree - 1-1 assistance with feeding DNR/DNI, son confirmed change in status VTE prophy: warfarin Pt will require continued hospitalization due to need for IV antibiotics for infected and necrotic sacral decubitus ulcer concerning for acute osteomyelitis. Pt is now awaiting hospice consult for optimal care and safe disposition. Quality Stroke Does the patient have a stroke diagnosis?: No VTE Prior VTE?: No VTE Risk Level:: Medical - moderate - high VTE Device Contraindication: Treatment Not Indicated VTE Drug Contraindication: N/A - Med Ordered
[2025-04-30 16:48] LABS: Glucose, Whole Blood 280 mg/dL (60-115)
[2025-04-30] MEDS: oxyCODONE HCl Immed Release 5 MG TABLET PO (17:45)
--- NOTE | 2025-04-30 20:04 | HE.PHANOTE ---
VANCO DOSE ADJUSTMENT BASED ON SCR AND TROUGH OF 12.1 DOSE CONTINUED AT 75- Q 12H. NEXT LEVEL 05/01 @ 1900
[2025-04-30 20:11] LABS: Glucose, Whole Blood 337 mg/dL (60-115)
[2025-04-30] MEDS: 0.9 % Sodium Chloride Flush 3 ML SYRINGE IVFLUSH (20:58)
[2025-04-30 23:10] LABS: Glucose, Whole Blood 264 mg/dL (60-115)
[2025-05-01] VITALS (9 sets, daily range): BP systolic 123–160; BP diastolic 56–72; PULSE 83–110; RESP 16–20; TEMP 36.1–37.9; O2SAT 80–96
[2025-05-01] MEDS: Omeprazole/Na Bicarb Oral Susp 20 MG/10 ML UD Cup PO (05:58)
[2025-05-01 07:00] LABS: Creatinine Clr Calc Pharmacy 69.3; Estimated Glomerular Filt Rate > 60
[2025-05-01 08:09] LABS: MANUAL DIFF FLAG NO
[2025-05-01 08:13] LABS: Hematocrit 29.7 % (37.0-47.0); Hemoglobin 8.4 g/dl (12.0-16.0); Imm Gran Abs Auto 0.06 X10*3/uL (0.00-0.03); Imm Gran Pct Auto 0.6 % (0.0-0.4); Lymphocytes Absolute Auto 1.4 X10*3/uL (1.2-4.9); Mean Corpuscular HGB Conc 28.3 g/dl (31.0-35.0); Mean Corpuscular Hemoglobin 21.3 pg (27.0-33.0); Mean Corpuscular Volume 75.2 fL (80.0-98.0); NRBC Abs Auto 0.000 X10*3/uL (0.0-0.012); NRBC Pct Auto 0.0 /100WBC (0.0-0.2); Platelet Count 440 X10*3/uL (160-400); Red Blood Count 3.95 X10*6/uL (4.20-5.50); White Blood Count 10.7 X10*3/uL (4.8-10.8)
[2025-05-01 08:13] LABS: Glucose, Whole Blood 282 mg/dL (60-115)
[2025-05-01 08:14] LABS: INTERNATIONAL NORM RATIO 1.7 (0.9-1.1); Prothrombin Time 21.0 SEC (11.2-13.5)
[2025-05-01] MEDS: levETIRAcetam Oral Soln 500 MG/5 ML PO ×2 (08:23→21:04)
[2025-05-01 08:51] LABS: Blood Urea Nitrogen 18 mg/dL (9-16); Calcium 9.0 mg/dL (8.4-10.2)
[2025-05-01 09:30] LABS: Anion Gap 15 (12-20); Carbon Dioxide 23 mmol/L (22-29); Chloride 115 mmol/L (96-108); Potassium 3.2 mmol/L (3.3-5.1); Sodium 150 mmol/L (135-145)
[2025-05-01] MEDS: Potassium Chloride Packet 20 MEQ PACKET 40 MEQ PO (10:18)
[2025-05-01] MEDS: Dextrose 5 % and Lactated Ring 1,000 ML 80 ML IVCONT (10:28)
[2025-05-01 10:57] LABS: Magnesium 1.8 mg/dL (1.6-2.6)
[2025-05-01 11:17] LABS: Glucose, Whole Blood 296 mg/dL (60-115)
--- NOTE | 2025-05-01 14:54 | HO.PM.IMPN ---
Subjective Subjective Date of Service: 05/01/25 Interval History: Pt seen and evaluated during morning rounds Responded well to transfusion: H&H to 6.7/23.5-->8.4/29.7; no signs of active bleeding INR to 1.7 after vit k Potassium again low at 3.2 Pt overall somnolent but arousable Family plan on hospice consult later in the day Review of Systems Review of Systems: Yes all other systems are reviewed and are negative Physical Exam Exam: Exam: General: Somnolent but arousable, answering appropriately when awake. In, no acute distress. Overall weak and chronically ill-appearing Resp: CTA bilaterally CVS: Irregularly irregular, +mechanical click. GI: +BS, NT, no distention Skin: Warm, dry. Decubitus ulcer with central necrosis with surrounding erythema. See photo in admission HPI Neuro: Chronic left-sided hemiparesis; LUE with preserved ROM Extremities: No pitting edema Psych: Pleasantly confused, minimally verbal Vital Signs: Vital Signs: Last Vital Signs Temp 97.0 F 05/01/25 11:43 Pulse 91 05/01/25 11:43 Resp 20 05/01/25 11:43 BP 152/67 H 05/01/25 11:43 Pulse Ox 91 L 05/01/25 11:43 O2 Del Method Nasal Cannula 05/01/25 11:43 O2 Flow Rate 1 05/01/25 11:43 BMI result Body Mass Index 24.8 Objective Data Active Medications Acetaminophen (Acetaminophen 325 Mg Tablet) 650 mg PO Q6H PRN PRN Reason: Pain, Mild 1-3,fever,headache Last Admin: 05/01/25 08:24 Dose: 650 mg Documented By: HUNTER Amlodipine Besylate (Amlodipine Besylate 5 Mg Tablet) 5 mg PO DAILY [facility]; Protocol Last Admin: 05/01/25 08:24 Dose: 5 mg Documented By: HUNTER Aspirin (Aspirin 81 Mg Tab.Chew) 81 mg PO DAILY [facility] Last Admin: 05/01/25 08:24 Dose: 81 mg Documented By: HUNTER Atorvastatin Calcium (Atorvastatin Calcium 80 Mg Tablet) 80 mg PO DAILY [facility] Last Admin: 05/01/25 08:24 Dose: 80 mg Documented By: HUNTER Calcium Carbonate (Calcium Carbonate 750 Mg Tab.Chew) 750 mg PO Q4H PRN PRN Reason: Heartburn Dextrose (Dextrose 50 % 25 Gm/50 Ml Syringe) 25 gm IVPUSH Q15M PRN; Protocol PRN Reason: per Hypoglycemia Standing Ord. Glucose (Glucose Gel 15 Gm Gel..Gram.) 15 gm PO Q15M PRN; Protocol PRN Reason: per Hypoglycemia Standing Ord. Piperacillin Sod/Tazobactam (Sod 3.375 gm/ Sodium Chloride) 50 mls @ 100 mls/hr IV Q6H [facility] Last Infusion: 05/01/25 09:20 Dose: Infused Documented By: HUNTER Vancomycin HCl 750 mg/ Sodium (Chloride) 265 mls @ 265 mls/hr IV Q12H [facility] Last Infusion: 05/01/25 10:28 Dose: Infused Documented By: HUNTER Dextrose/Lactated Ringer's (D5lr) 500 mls @ 80 mls/hr IVCONT .Q6H15M [facility] Stop: 05/01/25 16:44 Last Admin: 05/01/25 10:28 Dose: 80 mls/hr Documented By: HUNTER Insulin Human Lispro (Insulin Lispro 100 Unit/Ml 3 Ml Vial) 0 unit SUBCUT QIDACHS [facility]; Protocol Last Admin: 05/01/25 11:49 Dose: 6 unit Documented By: HUNTER Levetiracetam (Levetiracetam Oral Soln 500 Mg/5 Ml) 500 mg PO BID [facility] Last Admin: 05/01/25 08:23 Dose: 500 mg Documented By: HUNTER Magnesium Hydroxide (Milk Of Magnesia 30 Ml Oral.Susp) 30 ml PO DAILY PRN PRN Reason: Constipation Melatonin (Melatonin 3 Mg Tablet) 6 mg PO BEDTIME PRN PRN Reason: Insomnia Metoprolol Tartrate (Metoprolol Tartrate 50 Mg Tablet) 50 mg PO BID [facility]; Protocol Last Admin: 05/01/25 08:24 Dose: 50 mg Documented By: HUNTER Nystatin (Nystatin Powder 15 Gm Bottle) 1 appl TOPICAL BID [facility]; Protocol Last Admin: 05/01/25 08:25 Dose: 1 appl Documented By: HUNTER Omeprazole (Omeprazole/Na Bicarb Oral Susp 20 Mg/10 Ml Ud Cup) 20 mg PO DAILY@0630 [facility] Last Admin: 05/01/25 05:58 Dose: 20 mg Documented By: HO.NEGISHA Ondansetron HCl (Ondansetron Hcl 4 Mg/2 Ml Vial) 4 mg IVPUSH Q8H PRN PRN Reason: Nausea and Vomiting Last Admin: 04/30/25 17:18 Dose: 4 mg Documented By: DUNCAN Oxycodone HCl (Oxycodone Hcl Immed Release 5 Mg Tablet) 5 mg PO Q6H PRN PRN Reason: Pain, Severe (Pain Scale 7-10) Last Admin: 04/30/25 17:45 Dose: 5 mg Documented By: HUNTER Pharmacy Consult (Consult Rx Vancomycin Dosing) 1 each MISCELLANE DAILY PRN PRN Reason: Consult order Sodium Chloride (0.9 % Sodium Chloride Flush 3 Ml Syringe) [address] [facility] Last Admin: 05/01/25 08:25 Dose: Not Given Documented By: HUNTER Non-Admin Reason: IV Running Sodium Hypochlorite (Sodium Hypochlorite 0.125% 473 Ml Solution) 1 appl TOPICAL BID [facility] Last Admin: 05/01/25 08:25 Dose: 1 appl Documented By: HUNTER Tramadol HCl (Tramadol Hcl 50 Mg Tablet) 50 mg PO Q6H PRN PRN Reason: Pain, Moderate(Pain Scale 4-6) Last Admin: 04/29/25 06:21 Dose: 50 mg Documented By: NEREYDA Valsartan (Valsartan 160 Mg Tablet) 160 mg PO DAILY@0900 [facility]; Protocol Last Admin: 05/01/25 08:24 Dose: 160 mg Documented By: HUNTER Warfarin Sodium (Warfarin Sodium 4 Mg Tablet) 4 mg PO SuMoWeFrSa@1800 JUANITA Warfarin Sodium (Warfarin Sodium 6 Mg Tablet) 6 mg PO TuTh@1800 [facility] Last Admin: 04/28/25 18:02 Dose: 6 mg Documented By: WILLIAM Labs 05/01/25 06:28 05/01/25 06:28 Labs: Laboratory Results - last 24 hr 04/30/25 04/30/25 04/30/25 10:22 16:41 19:15 MCV MCH MCHC RDW Plt Count MPV Immature Gran % (Auto) Neut % (Auto) Lymph % (Auto) [place] % (Auto) Eos % (Auto) Baso % (Auto) Lymph # (Auto) [place] # (Auto) Eos # (Auto) Baso # (Auto) Abs Immat Gran (auto) Absolute Neuts (auto) Absolute Nucleated RBC Nucleated RBC % (auto) Hold Purple Top PT INR Anion Gap Estim Creat Clear Calc Estimated GFR POC Glucose 280 H Random Glucose Calcium Magnesium Random Vancomycin 12.1 L Crossmatch See Detail 04/30/25 04/30/25 05/01/25 20:06 23:06 06:28 MCV 75.2 L MCH 21.3 L MCHC 28.3 L RDW 17.5 H Plt Count 440 H MPV 10.0 Immature Gran % (Auto) 0.6 H Neut % (Auto) 78.7 H Lymph % (Auto) 13.2 L [place] % (Auto) 5.7 Eos % (Auto) 1.3 Baso % (Auto) 0.5 Lymph # (Auto) 1.4 [place] # (Auto) 0.6 Eos # (Auto) 0.1 Baso # (Auto) 0.1 Abs Immat Gran (auto) 0.06 H Absolute Neuts (auto) 8.5 H Absolute Nucleated RBC 0.000 Nucleated RBC % (auto) 0.0 Hold Purple Top SEE NOTE PT INR Anion Gap 15 Estim Creat Clear Calc 69.3 Estimated GFR > 60 POC Glucose 337 H 264 H Random Glucose 293 H Calcium 9.0 Magnesium 1.8 Random Vancomycin Crossmatch 05/01/25 05/01/25 05/01/25 07:43 08:09 11:03 MCV MCH MCHC RDW Plt Count MPV Immature Gran % (Auto) Neut % (Auto) Lymph % (Auto) [place] % (Auto) Eos % (Auto) Baso % (Auto) Lymph # (Auto) [place] # (Auto) Eos # (Auto) Baso # (Auto) Abs Immat Gran (auto) Absolute Neuts (auto) Absolute Nucleated RBC Nucleated RBC % (auto) Hold Purple Top PT 21.0 H D INR 1.7 H D Anion Gap Estim Creat Clear Calc Estimated GFR POC Glucose 282 H 296 H Random Glucose Calcium Magnesium Random Vancomycin Crossmatch Microbiology Microbiology Results: Microbiology 04/27/25 18:36 Blood Culture - Final Blood - Venous Prelim: GPC Gram Stain only 04/27/25 18:36 Blood Culture - Preliminary Blood - Venous Gram positive cocci Assessment and Plan (1) Osteomyelitis: Status: Acute (2) Sepsis: Status: Acute (3) Infected decubitus ulcer: Status: Acute Plan Patient is a 79-year-old female with a past medical history significant for chronic decubitus ulcer, hypertension, type 2 diabetes, hyperlipidemia, HFpEF, mechanical aortic valve replacement on warfarin, 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 Sepsis secondary to infected decubitus ulcer with osteomyelitis on CT - met sepsis criteria with fever, tachycardia, and leukocytosis; lactic acid WNL, no hypotension - elevated ESR 121 and [employer] C[employer] WORK[employer] 12.84, saaral bone exposed - Zosyn and vancomycin, started 04/27 - general surgery performed bedside debridement on 04/28 - wound care consulted, recommend Dakin solution wet-to-dry dressings, cover with dry gauze and foam dressing; airloss matress - ID recommended IV daptomycin and ertapenem x6 weeks only if family plans to use Plastic surgery to help close the open area - monitor CBC and BMP Bacteremia - 06/27 blood cultures positive for Gram-positive cocci in clusters - likely secondary to sacral decubitus ulcer osteomyelitis - treat with vanc and Zosyn as above - follow final blood cultures Acute on chronic blood loss anemia - Hgb 7.8-->7.1-->6.7-->8.4 - no signs of active bleeding; likely from chronic disease - transfused 1 unit PRBCs on 04/30 - trend H&H Goals of care - spoke to family about goals of care - pt has been steadily declining since CVA in 12/2024 - has developed AFib, had multiple subsequent strokes, now with right hemiplegia, immobile and bed-bound, as well as currently bacteremic and with osteomyelitis - hospice consult ordered, met with pt on 05/01: hospice requests KUB and PT for passive ROM Hypokalemia - Has been intermittently low - Supplemented with p.o. and IV potassium as necessary - Trend labs Hypernatremia - Sodium today 150 - will give D5 1/2NS - follow sodium elevated troponin - EKG with a fib/RVR, rate normalized now - trop 65.4, flat at 76.1, likely type 2 in the setting of increased demand - tele - cardiology consult, do not think any specific implications for the troponin leak - on warfarin for mechanical valve - echo showing LVEF 50 55% with mechanical aortic prosthetic valve with suspected stenosis. Also showed severe mitral annular calcification with possible stenosis and ascending aortic size of 4.6 cm AFib w/RVR - daughter at bedside report pt noted to first be in AFib a few weeks ago at [facility] - pt on warfarin for mechanical aortic valve - INR 4.8, goal should be around 2.5 - tele - continue warfarin, metoprolol - cardiology following, does not think pt a candidate for any valvular workup or intervention Hypertension - metorpolol, valsartan, amlodipine HLD - continue home meds T2 dm - sliding scale insulin - hold metformin - Lantus daily HFpEF, no acute exacerbation - continue Lasix Mechanical aortic valve replacement - warfarin - monitor PT/INR History CVA ?seizures - keppra - [employer] recommend ground/mechanical altered (NDD2) diet and thin liquids, pills crushed in puree - 1-1 assistance with feeding DNR/DNI, son confirmed change in status VTE prophy: warfarin Pt will require continued hospitalization due to need for IV antibiotics for infected and necrotic sacral decubitus ulcer concerning for acute osteomyelitis. Pt is now awaiting hospice consult for optimal care and safe disposition. Quality Stroke Does the patient have a stroke diagnosis?: No VTE Prior VTE?: No VTE Risk Level:: Medical - moderate - high VTE Device Contraindication: Treatment Not Indicated VTE Drug Contraindication: N/A - Med Ordered
[2025-05-01 16:32] LABS: Glucose, Whole Blood 269 mg/dL (60-115)
--- NOTE | 2025-05-01 19:47 | HE.PHANOTE ---
VANCO DOSE ADJUSTMEBT BASED ON SCR AND TROUGH OF 12.9 DOSE INCREASED TO 1000 Q12H. NEXT LEVEL 05/03 @ 0700
[2025-05-01 20:51] LABS: Glucose, Whole Blood 299 mg/dL (60-115)
[2025-05-02] VITALS: BP 159/69; PULSE 91; RESP 18; TEMP 37.5; O2SAT 99
[2025-05-02 03:47] VITALS: BP 152/72; PULSE 88; RESP 18; TEMP 37.4; O2SAT 99
[2025-05-02] MEDS: Omeprazole/Na Bicarb Oral Susp 20 MG/10 ML UD Cup PO (05:40)
--- NOTE | 2025-05-02 07:26 | HO.PM.IMPN ---
Subjective Subjective Date of Service: 05/02/25 Physical Exam Vital Signs: Vital Signs: Last Vital Signs Temp 99.3 F 05/02/25 03:47 Pulse 88 05/02/25 03:47 Resp 18 05/02/25 03:47 BP 152/72 H 05/02/25 03:47 Pulse Ox 99 05/02/25 03:47 O2 Del Method Nasal Cannula 05/02/25 03:47 O2 Flow Rate 1 05/02/25 03:47 BMI result Body Mass Index 24.8 Objective Data Active Medications Acetaminophen (Acetaminophen 325 Mg Tablet) 650 mg PO Q6H PRN PRN Reason: Pain, Mild 1-3,fever,headache Last Admin: 05/01/25 08:24 Dose: 650 mg Documented By: HUNTER Amlodipine Besylate (Amlodipine Besylate 5 Mg Tablet) 5 mg PO DAILY [facility]; Protocol Last Admin: 05/01/25 08:24 Dose: 5 mg Documented By: HUNTER Aspirin (Aspirin 81 Mg Tab.Chew) 81 mg PO DAILY [facility] Last Admin: 05/01/25 08:24 Dose: 81 mg Documented By: HUNTER Atorvastatin Calcium (Atorvastatin Calcium 80 Mg Tablet) 80 mg PO DAILY [facility] Last Admin: 05/01/25 08:24 Dose: 80 mg Documented By: HUNTER Calcium Carbonate (Calcium Carbonate 750 Mg Tab.Chew) 750 mg PO Q4H PRN PRN Reason: Heartburn Dextrose (Dextrose 50 % 25 Gm/50 Ml Syringe) 25 gm IVPUSH Q15M PRN; Protocol PRN Reason: per Hypoglycemia Standing Ord. Glucose (Glucose Gel 15 Gm Gel..Gram.) 15 gm PO Q15M PRN; Protocol PRN Reason: per Hypoglycemia Standing Ord. Piperacillin Sod/Tazobactam (Sod 3.375 gm/ Sodium Chloride) 50 mls @ 100 mls/hr IV Q6H [facility] Last Infusion: 05/02/25 03:25 Dose: Infused Documented By: CLAUDIO Vancomycin HCl 1,000 mg/ (Sodium Chloride) 270 mls @ 270 mls/hr IV Q12H [facility] Last Infusion: 05/01/25 23:12 Dose: Infused Documented By: CLAUDIO Insulin Human Lispro (Insulin Lispro 100 Unit/Ml 3 Ml Vial) 0 unit SUBCUT QIDACHS [facility]; Protocol Last Admin: 05/01/25 21:07 Dose: 6 unit Documented By: CLAUDIO Levetiracetam (Levetiracetam Oral Soln 500 Mg/5 Ml) 500 mg PO BID [facility] Last Admin: 05/01/25 21:04 Dose: 500 mg Documented By: CLAUDIO Magnesium Hydroxide (Milk Of Magnesia 30 Ml Oral.Susp) 30 ml PO DAILY PRN PRN Reason: Constipation Melatonin (Melatonin 3 Mg Tablet) 6 mg PO BEDTIME PRN PRN Reason: Insomnia Metoprolol Tartrate (Metoprolol Tartrate 50 Mg Tablet) 50 mg PO BID [facility]; Protocol Last Admin: 05/01/25 21:04 Dose: 50 mg Documented By: CLAUDIO Nystatin (Nystatin Powder 15 Gm Bottle) 1 appl TOPICAL BID [facility]; Protocol Last Admin: 05/01/25 21:11 Dose: 1 appl Documented By: CLAUDIO Omeprazole (Omeprazole/Na Bicarb Oral Susp 20 Mg/10 Ml Ud Cup) 20 mg PO DAILY@0630 [facility] Last Admin: 05/02/25 05:40 Dose: 20 mg Documented By: CLAUDIO Ondansetron HCl (Ondansetron Hcl 4 Mg/2 Ml Vial) 4 mg IVPUSH Q8H PRN PRN Reason: Nausea and Vomiting Last Admin: 04/30/25 17:18 Dose: 4 mg Documented By: DUNCAN Oxycodone HCl (Oxycodone Hcl Immed Release 5 Mg Tablet) 5 mg PO Q6H PRN PRN Reason: Pain, Severe (Pain Scale 7-10) Last Admin: 04/30/25 17:45 Dose: 5 mg Documented By: HUNTER Pharmacy Consult (Consult Rx Vancomycin Dosing) 1 each MISCELLANE DAILY PRN PRN Reason: Consult order Sodium Chloride (0.9 % Sodium Chloride Flush 3 Ml Syringe) [facility] Last Admin: 05/01/25 22:59 Dose: Not Given Documented By: CLAUDIO Non-Admin Reason: IV Running Sodium Hypochlorite (Sodium Hypochlorite 0.125% 473 Ml Solution) 1 appl TOPICAL BID [facility] Last Admin: 05/01/25 21:06 Dose: 1 appl Documented By: CLAUDIO Tramadol HCl (Tramadol Hcl 50 Mg Tablet) 50 mg PO Q6H PRN PRN Reason: Pain, Moderate(Pain Scale 4-6) Last Admin: 04/29/25 06:21 Dose: 50 mg Documented By: NEREYDA Valsartan (Valsartan 160 Mg Tablet) 160 mg PO DAILY@0900 [facility]; Protocol Last Admin: 05/01/25 08:24 Dose: 160 mg Documented By: HUNTER Warfarin Sodium (Warfarin Sodium 4 Mg Tablet) 4 mg PO SuMoWeFrSa@1800 [facility] Last Admin: 05/01/25 17:46 Dose: 4 mg Documented By: DUNCAN Warfarin Sodium (Warfarin Sodium 6 Mg Tablet) 6 mg PO TuTh@1800 [facility] Last Admin: 04/28/25 18:02 Dose: 6 mg Documented By: WILLIAM Labs 05/01/25 06:28 05/01/25 06:28 Labs: Laboratory Results - last 24 hr 05/01/25 05/01/25 05/01/25 06:28 07:43 08:09 MCV 75.2 L MCH 21.3 L MCHC 28.3 L RDW 17.5 H Plt Count 440 H MPV 10.0 Immature Gran % (Auto) 0.6 H Neut % (Auto) 78.7 H Lymph % (Auto) 13.2 L [place] % (Auto) 5.7 Eos % (Auto) 1.3 Baso % (Auto) 0.5 Lymph # (Auto) 1.4 [place] # (Auto) 0.6 Eos # (Auto) 0.1 Baso # (Auto) 0.1 Abs Immat Gran (auto) 0.06 H Absolute Neuts (auto) 8.5 H Absolute Nucleated RBC 0.000 Nucleated RBC % (auto) 0.0 PT 21.0 H D INR 1.7 H D Anion Gap 15 Estim Creat Clear Calc 69.3 Estimated GFR > 60 POC Glucose 282 H Random Glucose 293 H Calcium 9.0 Magnesium 1.8 Random Vancomycin 05/01/25 05/01/25 05/01/25 11:03 16:12 19:02 MCV MCH MCHC RDW Plt Count MPV Immature Gran % (Auto) Neut % (Auto) Lymph % (Auto) [place] % (Auto) Eos % (Auto) Baso % (Auto) Lymph # (Auto) [place] # (Auto) Eos # (Auto) Baso # (Auto) Abs Immat Gran (auto) Absolute Neuts (auto) Absolute Nucleated RBC Nucleated RBC % (auto) PT INR Anion Gap Estim Creat Clear Calc Estimated GFR POC Glucose 296 H 269 H Random Glucose Calcium Magnesium Random Vancomycin 12.9 L 05/01/25 20:47 MCV MCH MCHC RDW Plt Count MPV Immature Gran % (Auto) Neut % (Auto) Lymph % (Auto) [place] % (Auto) Eos % (Auto) Baso % (Auto) Lymph # (Auto) [place] # (Auto) Eos # (Auto) Baso # (Auto) Abs Immat Gran (auto) Absolute Neuts (auto) Absolute Nucleated RBC Nucleated RBC % (auto) PT INR Anion Gap Estim Creat Clear Calc Estimated GFR POC Glucose 299 H Random Glucose Calcium Magnesium Random Vancomycin Microbiology Microbiology Results: Microbiology 04/27/25 18:36 Blood Culture - Final Blood - Venous Prelim: GPC Gram Stain only 04/27/25 18:36 Blood Culture - Preliminary Blood - Venous Gram positive cocci Quality Stroke Does the patient have a stroke diagnosis?: No VTE Prior VTE?: No VTE Risk Level:: Medical - moderate - high VTE Device Contraindication: Treatment Not Indicated VTE Drug Contraindication: N/A - Med Ordered
[2025-05-02 07:54] LABS: Hematocrit 27.2 % (37.0-47.0); Hemoglobin 7.8 g/dl (12.0-16.0); Mean Corpuscular HGB Conc 28.7 g/dl (31.0-35.0); Mean Corpuscular Hemoglobin 21.5 pg (27.0-33.0); Mean Corpuscular Volume 75.1 fL (80.0-98.0); NRBC Abs Auto 0.000 X10*3/uL (0.0-0.012); NRBC Pct Auto 0.0 /100WBC (0.0-0.2); Platelet Count 391 X10*3/uL (160-400); Red Blood Count 3.62 X10*6/uL (4.20-5.50); White Blood Count 10.2 X10*3/uL (4.8-10.8)
[2025-05-02 07:59] LABS: INTERNATIONAL NORM RATIO 1.8 (0.9-1.1); Prothrombin Time 21.3 SEC (11.2-13.5)
[2025-05-02 08:07] LABS: Anion Gap 13 (12-20); Blood Urea Nitrogen 15 mg/dL (9-16); Calcium 8.6 mg/dL (8.4-10.2); Carbon Dioxide 26 mmol/L (22-29); Chloride 112 mmol/L (96-108); Creatinine Clr Calc Pharmacy 74.3; Estimated Glomerular Filt Rate > 60; Potassium 3.2 mmol/L (3.3-5.1); Sodium 148 mmol/L (135-145)
[2025-05-02 08:20] LABS: Glucose, Whole Blood 278 mg/dL (60-115)
--- NOTE | 2025-05-02 08:48 | P.CDIM_ITS ---
PROVIDER RESPONSE TEXT: To clarify, the appropriate diagnosis supported by the clinical indicators: Excisional debridement subcutaneous tissue and fat QUERY TEXT: PHYSICIAN'S DOCUMENTATION REQUEST Date of Query: 04/29/2025 10:04 AM EST Patient Name: Emily Whyte I Admit Date: 04/28/2025 Dear Dilip Childs PA-C, A review of the medical record indicates additional documentation may be needed. Please review below and update the documentation accordingly. Clinical Indicators: Abscess I/D sacral ulcer, sharp debridement necrotic tissue showing exposed bone Could you provide, in the Progress Notes, further clarification regarding the type and nature of the debridement? Excisional debridement subcutaneous tissue and fat Non-excisional debridement subcutaneous tissue and fat Excisional debridement , please specify depth Other (explain) Clinically unable to determine (explain) Thank you, Leslie Licona RN Use of terms such as suspected, likely, concern for, or probable (associated with a specific diagnosis that is being evaluated, monitored, or treated as if it exists) are acceptable and can be coded in the inpatient setting, when documented at the time of discharge. Please use your independent medical judgment in providing your response. THIS QUERY IS PART OF THE PERMANENT MEDICAL RECORD
[2025-05-02 08:50] VITALS: BP 136/62; PULSE 100; RESP 16; O2SAT 93
[2025-05-02] MEDS: 0.9 % Sodium Chloride Flush 3 ML SYRINGE IVFLUSH (08:52)
[2025-05-02] MEDS: levETIRAcetam Oral Soln 500 MG/5 ML PO (08:53)
[2025-05-02] MEDS: Potassium Chloride/H20 10 MEQ/100 ML PIGGYBACK 100 MEQ IV ×4 (09:18→12:59)
--- NOTE | 2025-05-02 10:12 | MHC.CLN ---
F/U PT WITH INCREASED NUTRITION RISK R/T PRESSURE INJURY PO INTAKE VARIABLE RANGING FROM 0-75% DIET RX: 2000DM GRD RECEIVING ENSURE MAX BID TO PROMOTE WOUND HEALING SUPP PROVIDES 300KCALS, 60G PROTEIN MONITOR PO INTAKE AND ENCOURAGE SUPPLEMENTS
--- NOTE | 2025-05-02 10:18 | MHC.CM.PN ---
Addendum entered by Jodee Wren 05/02/25 15:59: Met with MD and pt's dtr/HCP Paige: Family would like to take pt home for [employer] focused care. [facility] aware and will sign pt on to service on 05/03. [facility] BLS booked for 5pm this evening. Original Note: Per discussion in rounds: family is accepting of [facility] but would like additional work up by MD: MD to repeat blood cx and then anticipates d/c in 1-2 days. [facility] aware. Pt to transport via BLS.
[2025-05-02 12:00] VITALS: BP 167/70; PULSE 81; RESP 19; TEMP 36.6; O2SAT 98
[2025-05-02 13:17] LABS: Glucose, Whole Blood 221 mg/dL (60-115)
--- NOTE | 2025-05-02 15:56 | P.DS_ITS ---
DS: Providers Provider Date of Service: 05/02/25 Date of admission: 04/27/25 20:25 Date of discharge: 05/02/25 Primary care physician: Paco Schuler MD Consults: 04/27/25 20:51 Consult to General Surgery Routine Consulting Provider: [facility] [place] [facility] Reason for consultation: decubitus ulcer Consult to Wound Care Routine Consulting Provider: [facility] [place] [facility] Reason for consultation: decubitus ulcer 04/27/25 21:11 Consult to Cardiology Routine Consulting Provider: [facility] [place] [facility] Reason for consultation: elevated trop, new onset a fib 04/27/25 23:24 Consult to Infectious Diseases Routine Consulting Provider: [facility] [place] [facility] Reason for consultation: osteomyelitis DS: Diagnosis Discharge Diagnosis (1) Osteomyelitis: Status: Acute (2) Sepsis: Status: Acute (3) Infected decubitus ulcer: Status: Acute DS: Summary Hospital Course Hospital Course: H&P: Chief Complaint: fever, chronic wound infected Patient is a 79-year-old female with a past medical history significant for chronic decubitus ulcer, hypertension, type 2 diabetes, hyperlipidemia, HFpEF, mechanical aortic valve replacement on warfarin, 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 The patient is nonverbal therefore unable to provide a history. Pt's son who helps care for her states that she has visiting nurses that have been caring for her decubitus ulcer however noted today that it appears infected and she is febrile, therefore recommended she come to the ED. The son notes that she has had a great appetite, no episodes of respiratory symptoms including cough, nasal congestion, abdominal complaints, urinary symptoms. 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 # severe mitral annular calcification # AAA dilation # adult failure to thrive # severe malnutrition # goals of care family elected ICE BAG ASSEMBLER 79-year-old female with extensive medical comorbidities, including chronic sacral decubitus ulcer, hypertension, type 2 diabetes, hyperlipidemia, heart failure with preserved ejection fraction (HFpEF), mechanical aortic valve replacement on warfarin, history of cerebrovascular accident (CVA) with right- sided hemiparesis, and bed-bound status, presented with fever and erythema around her chronic decubitus ulcer, and was noted to have sepsis criteria-fever, tachycardia, leukocytosis secondary to infected sacral dependent decubitus ulcers POA, osteomyelitis, bacteremia. Patient was initiated on broad-spectrum antibiotics per ID consult, surgery recommended Plastic surgery to close the open decubitus ulcer which the family declined. Acute on chronic blood-loss anemia was transfused a unit of blood transfusion. Wound care, cardiology, ID, surgery was consulted. Since her CVA in December 2024, the patient has experienced progressive functional decline, now with right hemiplegia, immobility, and bed- bound status. She has developed multiple complications including recurrent strokes, atrial fibrillation, and is now bacteremic with osteomyelitis. Given her advanced age, multiple comorbidities, progressive functional decline, and poor prognosis with limited potential for meaningful recovery, extensive goals of care discussions were held with her family. The patient?s son confirmed a change in code status to DNR/DNI. The family elected for hospice care and comfort measures only (ICE BAG ASSEMBLER), prioritizing quality of life and symptom management over further aggressive interventions. Hospice was consulted and met with the patient and family to facilitate this transition. Patient we will be transitioned to hospice and hospice will be initiated from home. Patient is being discharged with 2 days of morphine and Valium (Ativan short supply) Answered the family's questions at the bedside to the best of my abilities. comp field case manager was witnessed for this conversation. Time spent discussing smoking cessation with patient: more than 10 minutes Status at Discharge Functional status at discharge: bed bound Overall status at discharge: other (ICE BAG ASSEMBLER) Time Attestation Discharge Coordination Time (in mins): 70 Quality: Safe Use of Opioids Does Pt have an Active Cancer Diagnosis on the Problem List?: No Quality: Stroke Does the patient have a stroke diagnosis?: No Physical Exam Exam: Exam: General: Somnolent but arousable, answering appropriately when awake. In, no acute distress. Overall weak and chronically ill-appearing Resp: CTA bilaterally CVS: Irregularly irregular, +mechanical click. GI: +BS, NT, no distention Skin: Decubitus ulcer with central necrosis with surrounding erythema. See photo in admission HPI Neuro: Chronic left-sided hemiparesis; LUE with preserved ROM Psych: Pleasantly confused, minimally verbal Vital Signs: Vital Signs: Last Vital Signs Temp 97.9 F 05/02/25 12:00 Pulse 81 05/02/25 12:00 Resp 19 05/02/25 12:00 BP 167/70 H 05/02/25 12:00 Pulse Ox 98 05/02/25 12:00 O2 Del Method Nasal Cannula 05/02/25 12:00 O2 Flow Rate 2 05/02/25 12:00 BMI result Body Mass Index 24.8 DS: Data Data Completed and Pending Completed studies during hospitalization [Text1]: Procedures Control Bleeding in Gastrointestinal Tract, Via Natural or Artificial Opening Endoscopic (07/16/24) Destruction of Ascending Colon, Via Natural or Artificial Opening Endoscopic (07/16/24) Excision of Ascending Colon, Via Natural or Artificial Opening Endoscopic, Diagnostic (10/18/24) Excision of Cecum, Via Natural or Artificial Opening Endoscopic, Diagnostic (10/18/24) Excision of Stomach, Pylorus, Via Natural or Artificial Opening Endoscopic, Diagnostic (10/18/24) Transfusion of Nonautologous Red Blood Cells into Peripheral Vein, Percutaneous Approach (07/16/24) Labs on day of discharge: Laboratory Results - last 24 hr 04/30/25 05/01/25 05/01/25 06:36 16:12 19:02 WBC RBC Hgb Hct MCV MCH MCHC RDW Plt Count MPV Absolute Nucleated RBC Nucleated RBC % (auto) Smear Path Review SEE NOTE PT INR Sodium Potassium Chloride Carbon Dioxide Anion Gap BUN Creatinine Estim Creat Clear Calc Estimated GFR POC Glucose 269 H Random Glucose Calcium Random Vancomycin 12.9 L 05/01/25 05/02/25 05/02/25 20:47 07:11 07:23 WBC 10.2 RBC 3.62 L Hgb 7.8 L Hct 27.2 L MCV 75.1 L MCH 21.5 L MCHC 28.7 L RDW 17.8 H Plt Count 391 MPV 9.7 Absolute Nucleated RBC 0.000 Nucleated RBC % (auto) 0.0 Smear Path Review PT 21.3 H INR 1.8 H Sodium 148 H Potassium 3.2 L Chloride 112 H Carbon Dioxide 26 Anion Gap 13 BUN 15 Creatinine 0.55 Estim Creat Clear Calc 74.3 Estimated GFR > 60 POC Glucose 299 H 278 H Random Glucose 286 H Calcium 8.6 Random Vancomycin 05/02/25 12:19 WBC RBC Hgb Hct MCV MCH MCHC RDW Plt Count MPV Absolute Nucleated RBC Nucleated RBC % (auto) Smear Path Review PT INR Sodium Potassium Chloride Carbon Dioxide Anion Gap BUN Creatinine Estim Creat Clear Calc Estimated GFR POC Glucose 221 H Random Glucose Calcium Random Vancomycin Preliminary micro results at discharge 04/27/25 18:36 Blood Culture - Preliminary Blood - Venous Gram positive cocci Discharge Plan Discharge Anticipated Discharge Date/Time: 05/02/25 16:12 Patient Disposition: Hospice - Home Discharge Diagnosis: Severe osteomyelitis, bacteremia due to chronic decubitus ulcers, adult failure to thrive, Referrals: [facility], [facility] [Provider Group] - 1 Week Paco Schuler MD [Primary Care Provider, Internal Medicine] - 1 Week Discharge Medications: New diazepam [Valium] 2 mg tablet 2 mg PO Q4H PRN (Reason: ICE BAG ASSEMBLER) 2 Days Qty: 10 0RF morphine concentrate 100 mg/5 mL (20 mg/mL) solution 10 mg PO Q6H PRN (Reason: ICE BAG ASSEMBLER , dyspnea) Qty: 15 0RF Rx Instructions: Partial Fill upon patient request. Discontinued metoprolol tartrate 50 mg tablet 50 mg PO BID valsartan 160 mg tablet 160 mg PO DAILY@0900 insulin glargine [Lantus Solostar U-100 Insulin] 100 unit/mL (3 mL) insulin pen 26 unit subcut BEDTIME amlodipine 5 mg Tablet 5 mg PO DAILY Qty: 90 0RF Protocol: Hold for SBP< HOLD for SBP < : 90 atorvastatin 80 mg Tablet 80 mg PO DAILY 30 Days Qty: 30 0RF aspirin 81 mg Tablet,Chewable 81 mg PO DAILY 30 Days Qty: 30 0RF levetiracetam 500 mg tablet 500 mg PO BID tramadol 50 mg tablet 25 mg PO Q6H PRN (Reason: pain) warfarin 2 mg tablet 4 mg PO SUMOWEFRSA nystatin 100,000 unit/gram powder 1 appl topical BID Rx Instructions: apply under arms and breasts Santyl 250 unit/gram ointment 1 appl topical DAILY warfarin 2 mg tablet 6 mg PO TUTH insulin lispro [Humalog U-100 Insulin] 100 unit/mL Solution 12 unit SUBCUT BID@0730,1130 Rx Instructions: WITH BREAKFAST AND LUNCH insulin lispro [Humalog U-100 Insulin] 100 unit/mL Solution 16 unit SUBCUT DAILY@1630 Rx Instructions: WITH DINNER Konvomep 2-84 mg/mL Suspension For Reconstitution 10 ml PO DAILY furosemide 20 mg tablet 20 mg PO DAILY Discharge Orders: Discharge Order (Routine); Ordered 05/02/25 Ordered By: Yoly Zimmerman Diet: Advance to usual diet Activity on Discharge: As tolerated Stand Alone Forms: Patient Portal Discharge page Print Language: Qatari Care Plan Goals: You are being discharged home with hospice services. The focus of your care is comfort and quality of life. Hospice will provide support for you and your family, including nursing care, medications for symptom relief, and equipment as needed. What to Expect: Hospice Team: A hospice nurse will visit you at home regularly. You will also have access to a hospice physician, social work supervisor, supervisor meter repair shop, and home health aides as needed. Medications: You will receive medications to help manage pain, shortness of breath, anxiety, nausea, and other symptoms. Take these as directed by the hospice team. Wound Care: Hospice will provide supplies and instructions for wound care. If you have a sacral ulcer, keep the area clean and dry, and follow the dressing change instructions provided by hospice. Nutrition: Eat and drink as you are able and as desired. There are no dietary restrictions unless you prefer them. Activity: Rest as needed. Assistance with mobility and personal care will be provided by family and/or hospice aides. Monitoring: There is no need for routine blood draws or vital sign checks unless needed for comfort. When to Call Hospice: Call your hospice nurse or the hospice 24-hour line if you experience: Uncontrolled pain or discomfort Difficulty breathing or increased shortness of breath New or worsening confusion or agitation Trouble swallowing medications Any other symptoms causing distress to you or your family Do NOT call 911 or go to the emergency room unless you or your family wish to discontinue hospice and pursue hospital care. Medications: Take only the medications provided or approved by hospice. Discontinue all medications not related to comfort, as directed by hospice. Equipment: Hospice will arrange for any necessary equipment (hospital bed, oxygen, wheelchair, etc.) to be delivered to your home. Support for Family: Hospice provides emotional and spiritual support for you and your loved ones. Social workers and chaplains are available to help with counseling, advance directives, and bereavement support. Follow-Up: The hospice team will coordinate all care and visits. Your primary care physician and specialists will be updated as needed. Health Concerns: See above Plan of Treatment: See above Assessment: See above
--- NOTE | 2025-05-02 15:56 | MHC.SLORD ---
Speech Language Pathology Order Status: Pt not seen 05/02, PO tolerance remains stable, though amount of intake is variable. RD also following.
[2025-05-02 16:00] VITALS: BP 152/64; PULSE 99; RESP 16; TEMP 36.4; O2SAT 99
--- NOTE | 2025-05-02 16:20 | P.ACPN_ITS ---
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 # severe mitral annular calcification # AAA dilation # adult failure to thrive # severe malnutrition # goals of care family elected EDUCATION PROGRAM ASSOCIATE 79-year-old female with extensive medical comorbidities, including chronic sacral decubitus ulcer, hypertension, type 2 diabetes, hyperlipidemia, heart failure with preserved ejection fraction (HFpEF), mechanical aortic valve replacement on warfarin, history of cerebrovascular accident (CVA) with right- sided hemiparesis, and bed-bound status, presented with fever and erythema around her chronic decubitus ulcer, and was noted to have sepsis criteria-fever, tachycardia, leukocytosis secondary to infected sacral dependent decubitus ulcers POA, osteomyelitis, bacteremia. Patient was initiated on broad-spectrum antibiotics per ID consult, surgery recommended Plastic surgery to close the open decubitus ulcer which the family declined. Acute on chronic blood-loss anemia was transfused a unit of blood transfusion. Wound care, cardiology, ID, surgery was consulted. Since her CVA in December 2024, the patient has experienced progressive functional decline, now with right hemiplegia, immobility, and bed- bound status. She has developed multiple complications including recurrent strokes, atrial fibrillation, and is now bacteremic with osteomyelitis. Given her advanced age, multiple comorbidities, progressive functional decline, and poor prognosis with limited potential for meaningful recovery, extensive goals of care discussions were held with her family. The patient?s son confirmed a change in code status to DNR/DNI. The family elected for hospice care and comfort measures only (EDUCATION PROGRAM ASSOCIATE), prioritizing quality of life and symptom management over further aggressive interventions. Hospice was consulted and met with the patient and family to facilitate this transition. Patient we will be transitioned to hospice and hospice will be initiated from home. Patient is being discharged with 2 days of morphine and Valium (Ativan short supply) Answered the family's questions at the bedside to the best of my abilities. redevelopment manager was witnessed for this conversation. Problems Discussed (1) Osteomyelitis: (2) Sepsis: (3) Infected decubitus ulcer:
[2025-05-02 17:04] LABS: Glucose, Whole Blood 238 mg/dL (60-115)
== END 2025-05-02 18:19 | disposition hospice, home (50) | DRG 853 ==
LOC: HO.ED 20:22 → HO.EDOVER 20:32 → HO.IMC 04-28 16:11
PROVIDERS: Student in an Organized Health Care Education/Training Program; Admitting Provider Physician Assistant; Emergency Provider Emergency Medicine; PCP Internal Medicine; Visit Provider Student in an Organized Health Care Education/Training Program
DX: A41.9 Sepsis, unspecified organism (principal); E43 Unspecified severe protein-calorie malnutrition; L89.154 Pressure ulcer of sacral region, stage 4; I69.351 Hemiplegia and hemiparesis following cerebral infarction affecting right dominant side; M46.28 Osteomyelitis of vertebra, sacral and sacrococcygeal region; I50.32 Chronic diastolic (congestive) heart failure; I96 Gangrene, not elsewhere classified; D62 Acute posthemorrhagic anemia; E87.0 Hyperosmolality and hypernatremia; Z66 Do not resuscitate; I48.91 Unspecified atrial fibrillation; I11.0 Hypertensive heart disease with heart failure; R79.1 Abnormal coagulation profile; E11.9 Type 2 diabetes mellitus without complications; E78.5 Hyperlipidemia, unspecified; E87.6 Hypokalemia; R62.7 Adult failure to thrive; I34.81 Nonrheumatic mitral (valve) annulus calcification; Z68.24 Body mass index [BMI] 24.0-24.9, adult; Z20.822 Contact with and (suspected) exposure to COVID-19; Z74.01 Bed confinement status; Z51.5 Encounter for palliative care; Z95.2 Presence of prosthetic heart valve; Z79.01 Long term (current) use of anticoagulants; Z79.899 Other long term (current) drug therapy
CPT/HCPCS: 36415; 71045; 72100; 74018; 74177; 80048; 80076; 80202; 81003; 82565; 82947; 83036; 83605; 83690; 83735; 84484; 85025; 85027; 85610; 85652; 86140; 86850; 86900; 86901; 86923; 87040; 87205; 87637; 92610; 93005; 93306; 99285; J0131; J0696; J2405; J2543; J3374; J3480; J7120; P9016; Q9957; Q9967

== ENCOUNTER → 2025-04-27 18:28 | Outpatient (BNV) | payer MEDICARE, SELFPAY | PROVIDERS: Emergency Provider Emergency Medicine; PCP Internal Medicine; Visit Provider Radiology Diagnostic Radiology | DX: M51.360 Other intervertebral disc degeneration, lumbar region with discogenic back pain only (principal); I51.7 Cardiomegaly | CPT/HCPCS: 71045; 72100; 74177 ==

== ENCOUNTER 2025-04-27 20:25 | Outpatient (BNV) | payer MEDICARE, SELFPAY | END 2025-05-01 15:30 | PROVIDERS: Admitting Provider Physician Assistant; Emergency Provider Emergency Medicine; PCP Internal Medicine; Visit Provider Radiology Diagnostic Radiology | DX: K59.00 Constipation, unspecified (principal) | CPT/HCPCS: 74018 ==

== ENCOUNTER 2025-04-27 20:25 | Outpatient (BNV) | payer MEDICARE, SELFPAY | END 2025-04-28 07:00 | PROVIDERS: Admitting Provider Physician Assistant; Emergency Provider Emergency Medicine; PCP Internal Medicine; Visit Provider Internal Medicine | DX: I34.81 Nonrheumatic mitral (valve) annulus calcification (principal); I77.810 Thoracic aortic ectasia; Z95.2 Presence of prosthetic heart valve; I51.7 Cardiomegaly | CPT/HCPCS: 93306 ==

== ENCOUNTER 2025-04-27 20:25 | Outpatient (BNV) | payer MEDICARE, SELFPAY | END 2025-04-30 01:28 | PROVIDERS: Admitting Provider Physician Assistant; Emergency Provider Emergency Medicine; PCP Internal Medicine; Visit Provider Internal Medicine | DX: I44.7 Left bundle-branch block, unspecified (principal) | CPT/HCPCS: 93010 ==

== ENCOUNTER → 2025-04-27 20:25 | Outpatient (BNV) | payer MEDICARE, SELFPAY | PROVIDERS: Admitting Provider Physician Assistant; Emergency Provider Emergency Medicine; PCP Internal Medicine; Visit Provider Internal Medicine | DX: M86.9 Osteomyelitis, unspecified (principal); A41.9 Sepsis, unspecified organism | CPT/HCPCS: 99222; 99232 ==

== ENCOUNTER → 2025-04-27 20:25 | Outpatient (BNV) | payer MEDICARE, SELFPAY | PROVIDERS: Admitting Provider Physician Assistant; Emergency Provider Emergency Medicine; PCP Internal Medicine | DX: L89.154 Pressure ulcer of sacral region, stage 4 (principal) | CPT/HCPCS: 11044; 99222 ==

== ENCOUNTER → 2025-04-27 20:25 | Outpatient (BNV) | payer MEDICARE, SELFPAY | PROVIDERS: Admitting Provider Physician Assistant; Emergency Provider Emergency Medicine; PCP Internal Medicine; Visit Provider Student in an Organized Health Care Education/Training Program | DX: M86.9 Osteomyelitis, unspecified (principal); A41.9 Sepsis, unspecified organism; L89.90 Pressure ulcer of unspecified site, unspecified stage; L08.9 Local infection of the skin and subcutaneous tissue, unspecified | CPT/HCPCS: 99223; 99233; 99239; 99497; 99498 ==

== ENCOUNTER → 2025-04-27 20:25 | Outpatient (BNV) | payer MEDICARE, SELFPAY | PROVIDERS: Admitting Provider Physician Assistant; Emergency Provider Emergency Medicine; PCP Internal Medicine; Visit Provider Internal Medicine | DX: I48.92 Unspecified atrial flutter (principal); Z95.2 Presence of prosthetic heart valve | CPT/HCPCS: 99223; 99233 ==